=== PATIENT | female | born 1965 | race Caucasian/White ===

== ENCOUNTER → 2017-12-16 14:56 | Outpatient (CLI) | payer BC, SELFPAY ==
[2017-12-16 17:12] LABS: Absolute Lymphocyte Count 2.33 X10^3/ul (0.83-4.51); Absolute Neutrophil Count 4.8 X10^3/uL (2.0-7.7); Basophil# 0.08 X10^3/uL; Eosinophil# 0.21 X10^3/uL; Eosinophils% 2.6 % (0-5); Hematocrit 38.9 % (37-47); Hemoglobin 12.8 g/dl (12.0-15.0); Lymphocyte # 2.33 X10^3/ul (4.0); Lymphocyte % 28.9 % (19-41); Mean Corp Hgb Conc 32.9 g/gl (32-36); Mean Corpuscular Hgb 31.3 pg (27.0-32.0); Mean Corpuscular Volume 95.1 fL (81-99); Monocyte% 7.4 % (0-10); Neutrophil # 4.82 X10^3/uL (2.7-7.7); Neutrophil % 59.9 % (47-70); Platelet Count 227 K/mm3 (150-450); RBC Distribution Width CV 13.5 % (11.6-14.6); RBC Distribution Width SD 45.4 fl (35.1-43.9); Red Blood Count 4.09 M/mm3 (4.2-5.4); White Blood Count 8.1 K/mm3 (4.4-11.0)
[2017-12-16 17:16] LABS: POSITIVE COUNT NO; POSITIVE DIFFERENTIAL NO; POSITIVE MORPHOLOGY NO
[2017-12-16 17:23] LABS: Vitamin D,25 Hydroxy 9.4 ng/mL (19.95-100.01)
[2017-12-16 17:24] LABS: ALB/GLOB Ratio 1.1 RATIO (0.9-2.4); AST(SGOT) 21 U/L (15-37); Alanine Aminotransfer ALT/SGPT 29 U/L (13-56); Albumin, Serum 4.2 g/dL (3.2-5.0); Alkaline Phosphatase 86 U/L (45-117); Anion Gap 9 (5-15); BUN 12 mg/dL (7-18); BUN/Creat Ratio 15.4 RATIO (10-20); Calcium,Total 8.7 mg/dL (8.5-10.1); Chloride 104 mmol/L (98-107); Creatinine, Serum 0.78 mg/dL (0.55-1.02); EST Glomerular Filtration Rate 82 mL/min (>60); Est Glom Filt Rate - Afr Amer 99 mL/min (>60); Globulin 3.9 g/dL (2.2-4.2); Glucose 84 mg/dL (74-106); Potassium 3.7 mmol/L (3.5-5.1); Protein, Total 8.1 g/dL (6.4-8.2); Sodium Level 142 mmol/L (136-145)
[2017-12-18 14:55] LABS: Hep C Antibodies 0.1 s/co ratio (0.0-0.9)
== END ==
PROVIDERS: Visit Provider Family Medicine Geriatric Medicine
DX: E55.9 Vitamin D deficiency, unspecified (principal); E03.9 Hypothyroidism, unspecified; Z13.89 Encounter for screening for other disorder
CPT/HCPCS: 36415; 80053; 82306; 84443; 85025; 86803

== ENCOUNTER 2018-01-20 15:40 | Emergency (ER) | payer BC, SELFPAY ==
[2018-01-20 15:43] VITALS: BP 148/82; PULSE 83; RESP 18; TEMP 36.4; O2SAT 98; BMI 37.9
--- NOTE | 2018-01-20 16:06 | CT_ITS ---
STUDY: CT BRAIN WITHOUT CONTRAST REASON FOR EXAM: Female, 52 years old. Headache with recent fall. RADIATION DOSAGE (If Supplied By Facility): CTDIvol = ( 60.81 ) mGy, DLP = ( 1067.68 ) mGycm TECHNIQUE: Transaxial CT imaging of the brain was performed without administration of intravenous contrast material. Multiplanar reformations are submitted for interpretation. Individualized dose optimization techniques were used for this CT. COMPARISON: None. FINDINGS: Normal soft tissue structures. Normal calvarium. Normal size ventricles and extra-axial spaces for the patient's age. There are areas of decreased attenuation within the white matter tracts of the supratentorial brain, consistent with microvascular disease changes. Normal basal ganglia and thalami. Normal brainstem. Normal cerebellum. There is no intracranial hemorrhage. There is minimal atherosclerotic calcification of intracranial arteries. Normal visualized paranasal sinuses. CT/Brain/Head without Contrast IMPRESSION: No CT evidence of acute intracranial hemorrhage. Electronically Signed: Rachael Newby MD at 16:48 EDT , Service support ,
--- NOTE | 2018-01-20 16:06 | RAD_ITS ---
STUDY: X-RAY - THORACIC SPINE REASON FOR EXAM: Female, 52 years old. Back pain after recent trauma. TECHNIQUE: 3 view(s) of the thoracic spine were obtained. COMPARISON: Radiographs of the lumbar spine dated January 20, 2018. FINDINGS: There is an increase in the normal thoracic kyphosis. There is no substantial scoliosis. There is demineralization of the thoracic spine with endplate spondylosis. Appears to be mild decreased height of several upper thoracic vertebral bodies. This may be the result of mild old compression fractures. There is multilevel disc space narrowing of the thoracic spine. Surgical clips are visible in the right upper quadrant. RAD/Thoracic Spine 3 Views IMPRESSION: 1. Osteopenia. 2. There appear to be mild compression fractures of several upper thoracic vertebral bodies. These are of uncertain acuity. Electronically Signed: Rachael Newby MD at 17:01 EDT , Service support ,
--- NOTE | 2018-01-20 16:06 | CT_ITS ---
STUDY: CT CERVICAL SPINE WITHOUT CONTRAST REASON FOR EXAM: Female, 52 years old. Neck pain after falling through and/or. RADIATION DOSAGE (If Supplied By Facility): CTDIvol = ( 30.35 ) mGy, DLP = ( 591.51 ) mGycm TECHNIQUE: High resolution transaxial imaging was performed without contrast material. Sagittal and coronal images were reconstructed. Individualized dose optimization techniques were used for this CT. COMPARISON: None FINDINGS: Normal craniovertebral junction. Normal anterior atlantoaxial articulation. Normal odontoid process. Normal cervical lordosis. Normal vertebral bodies and posterior osseous elements. C2-3: Normal endplates. Normal disc height and morphology. Normal central canal and intervertebral neuroforamina. C3-4: Normal endplates. Normal disc height and morphology. Normal central canal and intervertebral neuroforamina. C4-5: Normal endplates. Normal disc height and morphology. Normal central canal and intervertebral neuroforamina. C5-6: Normal endplates. Normal disc height and morphology. Normal central canal and intervertebral neuroforamina. C6-7: Normal endplates. Normal disc height and morphology. Normal central canal and intervertebral neuroforamina. C7-T1: Normal endplates. Normal disc height and morphology. Normal central canal and intervertebral neuroforamina. Normal visualized soft tissue structures. CT/Spine Cervical without Contras IMPRESSION: No CT evidence of acute compression or displaced fracture of the cervical spine. Electronically Signed: Rachael Newby MD at 16:53 EDT , Service support ,
--- NOTE | 2018-01-20 16:07 | ED.VISSUMM ---
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 She hit into the door and then fell to the ground. She complains of headache. She complains of neck and back pain. She complains of pain in her entire back but it is worse in the upper back. She also complains of some numbness in the right arm and states it feels like there is a weight on it. She denies injury to extremities. No chest pain shortness of breath abdominal pain. No history of back surgeries Physical Examination: Afebrile vitals are stable and unremarkable No evidence of head trauma such as lacerations contusions abrasions or hematomas Pupils are equally round reactive to light no focal or lateralizing neurological deficits with light touch patient reports normal sensation in the bilateral upper extremities she has normal strength normal pillowcase sewer strength Patient complains of tenderness along palpation of the entire spine and is unable to tell me where she is point tender but does state that her pain is worse in the upper back Heart regular rate and rhythm Lungs are clear with equal breath sounds and no chest wall tenderness Abdomen soft and nontender Active full range of motion ?4 extremities without pain Test Results: CT of the head shows no hemorrhage. CT of the cervical spine shows no acute compression or fracture. Thoracic x-rays show multiple compression fractures of several upper thoracic vertebra of uncertain age. Lumbar x-rays show multilevel degenerative changes no acute fracture. Emergency Department Course and Treatment: Given that the patient has multiple thoracic compression fractures with a recent fall and pain I do believe these are acute. Although CT of the cervical spine showed no obvious geographic abnormality the patient is complaining of weakness and decreased sensation in her right arm. Therefore she will require further workup including likely MRI. She was discussed with Dr. Vela trauma surgeon prison keeper at [facility] and will be transferred. Treatment Plan: [] Disposition: Transfer Impression: Closed head injury Cervical strain Right arm weakness Multilevel thoracic compression fractures This note was generated with Giveter dictation software. It may contain incorrect words, spelling, and punctuation that were not noted in review of the chart prior to signing ED Disposition - Plan for ED Patient: Chief Complaint: Fall Referrals: Edilberto Loza Chi, MD [Primary Care Provider] -
--- NOTE | 2018-01-20 16:11 | ED.DCSUM_ITS ---
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 She hit into the door and then fell to the ground. She complains of headache. She complains of neck and back pain. She complains of pain in her entire back but it is worse in the upper back. She also complains of some numbness in the right arm and states it feels like there is a weight on it. She denies injury to extremities. No chest pain shortness of breath abdominal pain. No history of back surgeries Physical Examination: Afebrile vitals are stable and unremarkable No evidence of head trauma such as lacerations contusions abrasions or hematomas Pupils are equally round reactive to light no focal or lateralizing neurological deficits with light touch patient reports normal sensation in the bilateral upper extremities she has normal strength normal software support representative strength Patient complains of tenderness along palpation of the entire spine and is unable to tell me where she is point tender but does state that her pain is worse in the upper back Heart regular rate and rhythm Lungs are clear with equal breath sounds and no chest wall tenderness Abdomen soft and nontender Active full range of motion ?4 extremities without pain Test Results: CT of the head shows no hemorrhage. CT of the cervical spine shows no acute compression or fracture. Thoracic x-rays show multiple compression fractures of several upper thoracic vertebra of uncertain age. Lumbar x-rays show multilevel degenerative changes no acute fracture. Emergency Department Course and Treatment: Given that the patient has multiple thoracic compression fractures with a recent fall and pain I do believe these are acute. Although CT of the cervical spine showed no obvious geographic abnormality the patient is complaining of weakness and decreased sensation in her right arm. Therefore she will require further workup including likely MRI. She was discussed with Dr. Vela trauma surgeon weapons system instrument mechanic at [facility] and will be transferred. Treatment Plan: [] Disposition: Transfer Impression: Closed head injury Cervical strain Right arm weakness Multilevel thoracic compression fractures This note was generated with 1Ring dictation software. It may contain incorrect words, spelling, and punctuation that were not noted in review of the chart prior to signing ED Disposition - Plan for ED Patient: Chief Complaint: Fall Referrals: Edilberto Loza Chi, MD [Primary Care Provider] -
--- NOTE | 2018-01-20 16:30 | RAD_ITS ---
STUDY: X-RAY - LUMBAR SPINE REASON FOR EXAM: Female, 52 years old. Low back pain. TECHNIQUE: 3 view(s) of the lumbar spine were obtained. COMPARISON: Prior comparison studies are not available for review at this time. FINDINGS: Normal lumbar lordosis. There is no substantial scoliosis. There is a normal alignment of the vertebrae. There is multilevel degenerative arthropathy of the facet joints. Lumbar vertebral bodies have normal height and alignment. There appears be mild narrowing of L5-S1 disc space. Transverse and spinous processes are intact. There is no demonstrated fracture. Surgical clips are visible within the right upper quadrant. RAD/Lumbar Spine 2 or 3 Views IMPRESSION: 1. Multilevel degenerative arthropathy of the lumbar spine. 2. No radiographic evidence of acute compression or displaced fractures. Electronically Signed: Rachael Newby MD at 16:55 EDT , Service support ,
[2018-01-20] MEDS: Ondansetron 4 MG/2 ML Vial IV (17:33)
[2018-01-20 17:56] VITALS: BP 139/87; PULSE 97; RESP 14; TEMP 36.6; O2SAT 98
[2018-01-20 18:24] LABS: Absolute Lymphocyte Count 1.79 X10^3/ul (0.83-4.51); Absolute Neutrophil Count 5.7 X10^3/uL (2.0-7.7); Basophil# 0.05 X10^3/uL; Basophil% 0.6 % (0-1); Eosinophils% 2.3 % (0-5); Hematocrit 40.5 % (37-47); Hemoglobin 13.1 g/dl (12.0-15.0); Lymphocyte # 1.79 X10^3/ul (4.0); Lymphocyte % 20.3 % (19-41); Mean Corp Hgb Conc 32.3 g/gl (32-36); Mean Corpuscular Hgb 30.6 pg (27.0-32.0); Mean Corpuscular Volume 94.6 fL (81-99); Mean Platelet Vol. 11.1 fl (6.2-12.0); Monocyte# 1.04 X10^3/uL; Monocyte% 11.8 % (0-10); Neutrophil # 5.68 X10^3/uL (2.7-7.7); Neutrophil % 64.4 % (47-70); Platelet Count 229 K/mm3 (150-450); RBC Distribution Width CV 13.4 % (11.6-14.6); RBC Distribution Width SD 46.2 fl (35.1-43.9); Red Blood Count 4.28 M/mm3 (4.2-5.4); White Blood Count 8.8 K/mm3 (4.4-11.0)
[2018-01-20 18:25] LABS: POSITIVE COUNT NO; POSITIVE DIFFERENTIAL NO; POSITIVE MORPHOLOGY NO
[2018-01-20 18:37] LABS: International Normalized Ratio 0.9; Prothrombin Time (Protime)PT. 12.4 SECONDS (11.7-14.9)
[2018-01-20 18:46] LABS: ALB/GLOB Ratio 1.1 RATIO (0.9-2.4); AST(SGOT) 21 U/L (15-37); Alanine Aminotransfer ALT/SGPT 21 U/L (13-56); Alkaline Phosphatase 89 U/L (45-117); Anion Gap 7 (5-15); BUN 13 mg/dL (7-18); BUN/Creat Ratio 18.9 RATIO (10-20); Chloride 106 mmol/L (98-107); Creatinine, Serum 0.69 mg/dL (0.55-1.02); EST Glomerular Filtration Rate 95 mL/min (>60); Est Glom Filt Rate - Afr Amer 114 mL/min (>60); Estimated Creatinine Clearance 83.87 ml/min; Globulin 3.8 g/dL (2.2-4.2); Glucose 93 mg/dL (74-106); Potassium 3.4 mmol/L (3.5-5.1); Protein, Total 7.8 g/dL (6.4-8.2); Sodium Level 140 mmol/L (136-145)
== END 2018-01-20 18:49 | disposition short-term general hospital (02) ==
LOC: ED 16:59
PROVIDERS: Emergency Provider Emergency Medicine; Family Provider Family Medicine Geriatric Medicine; PCP Family Medicine Geriatric Medicine
DX: S09.90XA Unspecified injury of head, initial encounter (principal); S16.1XXA Strain of muscle, fascia and tendon at neck level, initial encounter; R53.1 Weakness; S22.009A Unspecified fracture of unspecified thoracic vertebra, initial encounter for closed fracture; W22.09XA Striking against other stationary object, initial encounter; Y93.K1 Activity, walking an animal; Y92.538 Other ambulatory health services establishments as the place of occurrence of the external cause; Y99.9 Unspecified external cause status; Z72.0 Tobacco use
CPT/HCPCS: 70450; 72072; 72100; 72125; 80053; 85025; 85610; 96374; 96375; 99285; A4216; J2405

== ENCOUNTER → 2019-03-10 10:24 | Outpatient (CLI) | payer BC, SELFPAY ==
[2019-03-10 12:33] LABS: Absolute Lymphocyte Count 2.11 X10^3/ul (0.83-4.51); Absolute Neutrophil Count 4.5 X10^3/uL (2.0-7.7); Basophil# 0.05 X10^3/uL; Basophil% 0.7 % (0-1); Eosinophil# 0.16 X10^3/uL; Eosinophils% 2.2 % (0-5); Hematocrit 39.5 % (37-47); Hemoglobin 12.7 g/dl (12.0-15.0); Lymphocyte # 2.11 X10^3/ul (4.0); Lymphocyte % 28.4 % (19-41); Mean Corp Hgb Conc 32.2 g/gl (32-36); Mean Corpuscular Hgb 30.1 pg (27.0-32.0); Mean Corpuscular Volume 93.6 fL (81-99); Mean Platelet Vol. 11.6 fl (6.2-12.0); Monocyte# 0.56 X10^3/uL; Monocyte% 7.5 % (0-10); Neutrophil # 4.53 X10^3/uL (2.7-7.7); Neutrophil % 60.9 % (47-70); Platelet Count 235 K/mm3 (150-450); RBC Distribution Width CV 13.3 % (11.6-14.6); RBC Distribution Width SD 44.1 fl (35.1-43.9); Red Blood Count 4.22 M/mm3 (4.2-5.4); White Blood Count 7.4 K/mm3 (4.4-11.0)
[2019-03-10 12:37] LABS: POSITIVE COUNT NO; POSITIVE DIFFERENTIAL NO; POSITIVE MORPHOLOGY NO
[2019-03-10 13:18] LABS: BUN 16 mg/dL (7-18); BUN/Creat Ratio 20.3 RATIO (10-20); Creatinine, Serum 0.79 mg/dL (0.55-1.02); EST Glomerular Filtration Rate 80 mL/min (>60); Est Glom Filt Rate - Afr Amer 97 mL/min (>60); Glucose 82 mg/dL (74-106)
[2019-03-10 13:19] LABS: ALB/GLOB Ratio 1.1 RATIO (0.9-2.4); AST(SGOT) 24 U/L (15-37); Alanine Aminotransfer ALT/SGPT 31 U/L (13-56); Alkaline Phosphatase 87 U/L (45-117); Anion Gap 7 (5-15); Calcium,Total 8.4 mg/dL (8.5-10.1); Chloride 105 mmol/L (98-107); Globulin 3.8 g/dL (2.2-4.2); Protein, Total 7.8 g/dL (6.4-8.2); Sodium Level 141 mmol/L (136-145)
[2019-03-11 09:03] LABS: HEPATITIS B SURFACE AG Negative (Negative)
== END ==
PROVIDERS: Family Provider Family Medicine Geriatric Medicine; PCP Family Medicine Geriatric Medicine; Visit Provider Family Medicine Geriatric Medicine
DX: R53.83 Other fatigue (principal); K72.00 Acute and subacute hepatic failure without coma
CPT/HCPCS: 36415; 80053; 84443; 85025; 87340

== ENCOUNTER → 2019-09-08 11:56 | Outpatient (CLI) | payer BC, SELFPAY ==
[2019-09-08 12:38] LABS: Absolute Lymphocyte Count 2.18 X10^3/uL (0.83-4.51); Absolute Neutrophil Count 5.5 X10^3/uL (2.0-7.7); Basophil# 0.06 X10^3/uL; Basophil% 0.7 % (0-1); Eosinophil# 0.31 X10^3/uL; Eosinophils% 3.5 % (0-5); Hematocrit 37.5 % (37-47); Lymphocyte # 2.18 X10^3/ul (4.0); Lymphocyte % 24.6 % (19-41); Mean Corpuscular Hgb 30.2 pg (27.0-32.0); Mean Corpuscular Volume 94.2 fL (81-99); Mean Platelet Vol. 11.1 fl (6.2-12.0); Monocyte# 0.78 X10^3/uL; Monocyte% 8.8 % (0-10); NRBC Flagged by Analyzer 0 % (0-5); Neutrophil # 5.48 X10^3/uL (2.7-7.7); Neutrophil % 61.8 % (47-70); Platelet Count 278 K/mm3 (150-450); RBC Distribution Width CV 13.2 % (11.6-14.6); RBC Distribution Width SD 45.5 fl (35.1-43.9); Red Blood Count 3.98 M/mm3 (4.2-5.4); White Blood Count 8.9 K/mm3 (4.4-11.0)
[2019-09-08 13:11] LABS: AST(SGOT) 20 U/L (15-37); Alanine Aminotransfer ALT/SGPT 27 U/L (13-56); Alkaline Phosphatase 99 U/L (45-117); Anion Gap 3 (5-15); BUN 22 mg/dL (7-18); BUN/Creat Ratio 28.4 RATIO (10-20); Calcium,Total 8.9 mg/dL (8.5-10.1); Chloride 103 mmol/L (98-107); Creatinine, Serum 0.78 mg/dL (0.55-1.02); EST Glomerular Filtration Rate 82 mL/min (>60); Est Glom Filt Rate - Afr Amer 99 mL/min (>60); Globulin 3.9 g/dL (2.2-4.2); Glucose 76 mg/dL (74-106); Potassium 4.7 mmol/L (3.5-5.1); Protein, Total 7.9 g/dL (6.4-8.2); Sodium Level 137 mmol/L (136-145); Thyroid Stim Hormone (TSH) 8.09 uIU/mL (0.358-3.74)
== END ==
PROVIDERS: Family Provider Family Medicine Geriatric Medicine; PCP Family Medicine Geriatric Medicine; Visit Provider Family Medicine Geriatric Medicine
DX: K72.00 Acute and subacute hepatic failure without coma (principal); I10 Essential (primary) hypertension
CPT/HCPCS: 36415; 80053; 84443; 85025

== ENCOUNTER → 2019-09-10 16:02 | Outpatient (CLI) | payer BC, SELFPAY ==
--- NOTE | 2019-09-10 16:11 | RAD_ITS ---
STUDY: X-RAY - LUMBAR SPINE REASON FOR EXAM: Female, 53 years old. Pain TECHNIQUE: 3 view(s) of the lumbar spine were obtained. COMPARISON: January 20 2018 FINDINGS: Normal lumbar lordosis. There is no substantial scoliosis. There is a normal alignment of the vertebrae. No evidence for acute fracture or subluxation.. There is mild narrowing of the L4-5 and L5-S1 disc spaces in association with facet arthropathy. Postop change status post cholecystectomy No significant change since prior exam RAD/Lumbar Spine 2 or 3 Views IMPRESSION: Mild degenerative changes. No evidence for acute fracture or other significant bony pathology Electronically Signed: Camden Velasquez MD at 22:13 EDT , Service support ,
== END ==
PROVIDERS: Family Provider Family Medicine Geriatric Medicine; PCP Family Medicine Geriatric Medicine; Referring Provider Family Medicine Geriatric Medicine; Visit Provider Family Medicine Geriatric Medicine
DX: M54.30 Sciatica, unspecified side (principal)
CPT/HCPCS: 72100

== ENCOUNTER → 2019-10-23 11:34 | Outpatient (CLI) | payer BC, SELFPAY ==
[2019-10-13 10:34] VITALS: BMI 41.3
[2019-10-23 13:27] LABS: Thyroid Stim Hormone (TSH) 0.56 uIU/mL (0.358-3.74)
== END ==
PROVIDERS: Family Provider Family Medicine Geriatric Medicine; PCP Family Medicine Geriatric Medicine; Visit Provider Family Medicine Geriatric Medicine
DX: E03.9 Hypothyroidism, unspecified (principal)
CPT/HCPCS: 36415; 84443

== ENCOUNTER 2019-11-20 10:30 | Outpatient (RCR) | payer BC, SELFPAY ==
--- NOTE | 2019-09-18 12:26 | HP.PTEVAL_ITS ---
Patient's Visit Information JAIME JENKINS is a 53 year old F referred to Physical Therapy by Edilberto Loza MD with a diagnosis of LBP. Date of Evaluation: 09/18/19 Physical Therapist: Michelle Cowan, PT, Cert MDT - Visit Plan Frequency: 2-3x /Week Duration: 4-6 Weeks Plan: AQUATIC THERAPY FOR PAIN RELEIF, POSTURE CORRECTION/STRENGTHENING, INSTRUCTION IN APPROPRIATE BODY MECHANICS AND ACTIVITY MODIFICATIONS. DLS STARTING WITH A NEUTRAL SPINE PROGRESSING ROM TOLERATED. ELIZABETH LE ROM, STRETCHING AND STRENGTHENING. HEP INSTRUCTION. 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 CURRENTLY NOT OFF WORK. Disability: NO. Present symptoms: LEFT LOW BACK, BUTTOCK, HIP, THIGH, AND LEG PAIN, NUMBNESS AND TINGLING. LEFT UE HAS GONE NUMB A COUPLE OF TIMES TOO. Present since: ABOUT 2 WEEKS AGO. Pain Scale: WORST 8/10, LEAST 5/10. Currently: 5/10. Commenced as a result of: NO APPARENT REASON. PATIENT REPORTS SHE WAS AT WORK WHEN SHE FIRST FELT THE PAIN. Symptoms at onset: LLE. Worse: PULLING ON SOMETHING, TWISTING, SQUATTING DOWN, WALKING, STANDING TO DO THE DISHES, ANYTHING I DO MAKES IT HURT. Better: SITTING - PAIN WILL EASE DOWN BUT IT NEVER GOES AWAY. Disturbed sleep: YES. Previous history/Previous treatment: FIRST STARTED HAVING LOW BACK AND LE SX'S ABOUT 10 YEARS AGO. IN THE PAST HER LE SX'S HAVE COME AND GONE BUT IT IS STAYING IN THE LEFT LEG THIS TIME. NO CHIRO, NO PT, NO INJECTIONS AND NO BACK SURGERY. SELF TREATMENT AND TIME HAS TAKEN CARE OF ANY BACK OR LEG PAIN SHE HAS HAD IN THE PAST AND SHE REPORTS IT HAS NEVER REALLY BEEN BAD ENOUGH BEFORE NOW TO DO ANYTHING ABOUT IT. THIS EPISODE PATIENT REPORTS DR. LOZA GAVE HER 4 SHOTS AND 4 MEDICINES AND THEY DID NOT HELP. FINISHED THEM YESTERDAY. Coughing/sneezing/straining: POSITIVE. Gait: PATIENT REPORTS SHE IS LIMPING A LOT NOW ON THE LLE AND SHE NOTICES DRAGGING HE LLE AT TIMES. Difficulty initiating urinatin: NO. Accidents: 2 YEARS AGO PATIENT REPORTS HER DOG PULLED HER THROUGH A GLASS DOOR AND SHE SUSTAINED A FX IN HER UPPER BACK. SHE REPORTS THEY TALKED ABOUT PUTTING CEMENT IN BUT IT STARTED HEALING ON ITS OWN. Unexplained weight loss: NO. Imaging: LOW BACK X-RAY - There is mild narrowing of the L4-5 and L5-S1 disc spaces in association with facet arthropathy. NO CHANGES COMPARED TO JANUARY 2018 X RAY. PMH: UNREMARKABLE. Recent major surgery: GALLBLADDER REMOVAL 2006, PARTIAL HYSTERECTOMY 2004. OTHER: PATIENT REPORTS DR. LOZA ALSO REFERRED HER TO PAIN MGMT AND SHE HAS AN MARY'T WITH THEM SATURDAY AND AN APPT WITH A CHIROPRACTOR OCT 13 2019. - Objective Sitting/Standing Posture: POOR. Lordosis: NORMAL. Lateral shift: RIGHT. Relevant shift: NO. Active Correction of posture: WORSE. Other Observations: UE DEPENDENT TO TRANSFER FROM SIT TO STAND. DIFFICULTY RISING FROM SITTING AND INITIATING GAIT AFTER SITTING. GAIT IS SLOW AND ANTALGIC WITH INCREASED TRUNK FLEXION AND LIMP ON LEFT LE. NO AD'S. NO LOB. TRIES TO AVOID WEIGHT BEARING ON LLE. Motor deficit: ELIZABETH LE MMT'ING IS PAIN LIMITED. RIGHT LE STRENGTH APPEARS 5/5 WITH MMT'ING EXCEPT FOR HIP 4/5. LLE: HIP 3+ TO 4-/5, KNEE EXT 4/5, KNEE EXT 4/5, ANKLE 5/5. Sensory deficit: DECREASED LEFT THIGH LIGHT TOUCH. ROM deficit: TIGHT ELIZABETH HIP FLEXORS. MILD ELIZABETH HS TIGHTNESS. Reflexes: UNABLE TO ELICIT ELIZABETH LE DTR'S. Dural Signs: NEGATIVE RIGHT AND POSITIVE LLE. Lumbar mvmt loss: flex - MOD. ext - JEANE. R SG - MOD. L SG - JEANE. Core strength: POOR. Palpation: PATIENT IS REALLY NOT TENDER WITH PALPATION OF THE LOWER THORACIC OR LUMBAR SPINOUS PROCESS'S OR EVEN OVER THE SACRUM BUT SHE HAS A LOT OF PARASPINAL GUARDING AND HER LEFT BUTTOCK REGION IS VERY TENDER WITH LIGHT PALPATION IN THE REGION OF THE SCIATIC NERVE. - Goals Goal 1:: DECREASE C/O LOW BACK AND LLE SX'S. Goal Time Frame: 4-6 Weeks Goal 2:: IMPROVE LIFTING, WALKING, SITTING, STANDING, SLEEP, SOCIAL LIFE AND WORK/HOMEMAKING FUNCTION Goal Time Frame: 4-6 Weeks Goal 3:: INSTRUCT IN PROPHYLAXIS Goal Time Frame: 4-6 Weeks - Rehabilitation Potential Rehabilitation Potential: Fair - Anticipated Interventions Patient/Client Instruction: Educate patient on: Condition, Plan of Care, Risk Factors, Benefits of Fitness Program For the Purpose of:: To improve self management Therapeutic Exercise to Include: Strength training, Body mechanics, Postural training, Flexibilty training, Gait and locomotor training, Dynamic Lumbar Stabilization For the Purpose of:: To decrease pain, To decrease swelling/inflammation, To increase ROM, To improve muscle performance and motor function, To increase tolerance to activity/condition/position, To improve ability of physical actions for home/community/work/leisure, To improve gait and locomotor functions Thank you for the opportunity to evaluate your patient. For Medicare and Medicare HMO plans, please review the plan of care and approve it. It will need to be FAXED BACK to us at [phone] for Medicare purposes. For Medicare only, by signing this I certify the plan of care. Please let me know if there are questions or concerns regarding this plan of care. Physician Signature: Date:
--- NOTE | 2019-10-21 18:00 | HP.PTREVAL ---
Edilberto Loza MD, It has been my pleasure to treat JAIME JENKINS over the last 10 visits for LBP. Please see the progress note below for an update on the physical therapy plan of care! Subjective: PATIENT REPORTS SHE IS BETTER. THE WALKING DON'T BOTHER ME. A LITTLE BIT OF PAIN IF ON HER FEET TOO MUCH BUT NOT LIKE IT WAS. PATIENT REPORTS SHE IS COMPLETLY OFF WORK CURRENTLY BECAUSE DR. LOZA GAVE HER RESTRICTIONS. PATIENT REPORTS SHE REALLY HAS BEEN WORKING FULL DUTY UP UNTIL THEY TOOK HER OFF WORK AND SHE REPORTS SHE REALLY HASN'T HAD ANY PROBLEMS FOR A WEEK OR TWO. SHE IS GOING TO SCHEDULE A FOLLOW UP WITH DR. LOZA THIS MONTH. PATIENT IS CONSIDERING A MEMBERSHIP POST REHAB. Objective/Function: PATIENT IS MAKING GREAT PROGRESS WITH PHYSICAL THERAPY. SHE IS A GOOD CANDIDATE TO CONTINUE AQUATIC THERAPY AND START TRANSITIONING TO LAND BASED EX OVER THE NEXT FEW WEEKS. SHE REPORTS BEING ABLE TO COME 3 TIMES A WEEK NOW. UPON TESTING TODAY: ELIZABETH LE STRENGTH IS 5/5 WITH MMT'ING. PATIENT STILL HAS POOR CORE STENGTH AND DECREASED HIP EXTENSION STRENGTH. INDEP SIT TO STAND WITHOUT UE ASSIST AND GOOD INITIATION OF GAIT AFTER SITTING. NORMALIZED GAIT PATTERN WITH GOOD CADANCE TODAY. Dural Signs: NEGATIVE RIGHT AND POSITIVE LLE. Lumbar mvmt loss: flex - Min. ext - Mod. R SG - Mod. L SG - Mod. PATIENT DENIES NCREASED PAIN WITH LUMBAR ROM TESTING ALL PLANES TODAY. Core strength: POOR. Palpation: PATIENT IS REALLY NOT TENDER WITH PALPATION OF THE LOWER THORACIC OR LUMBAR SPINOUS PROCESS'S OR EVEN OVER THE SACRUM BUT SHE HAS A LOT OF PARASPINAL GUARDING AND HER LEFT BUTTOCK REGION IS VERY TENDER WITH LIGHT PALPATION IN THE REGION OF THE SCIATIC NERVE. Plan Plan: CONT PT 3 TIMES A WEEK WITH AQUATIC AND LAND PT FOR CORE AND LE STRENGTHENING. PATIENT IS AGREEABLE AND CONSIDERING MEMBERSHIP POST REHAB. Goals Goal 1:: DECREASE C/O LOW BACK AND LLE SX'S. Goal Time Frame: 4-6 Weeks Goal 2:: IMPROVE LIFTING, WALKING, SITTING, STANDING, SLEEP, SOCIAL LIFE AND WORK/HOMEMAKING FUNCTION Goal Time Frame: 4-6 Weeks Goal 3:: INSTRUCT IN PROPHYLAXIS Goal Time Frame: 4-6 Weeks Anticipated Interventions Patient/Client Instruction: Educate patient on: Condition, Plan of Care, Risk Factors, Benefits of Fitness Program For the Purpose of:: To improve self management Therapeutic Exercise to Include: Strength training, Body mechanics, Postural training, Flexibilty training, Gait and locomotor training, Dynamic Lumbar Stabilization For the Purpose of:: To decrease pain, To decrease swelling/inflammation, To increase ROM, To improve muscle performance and motor function, To increase tolerance to activity/condition/position, To improve ability of physical actions for home/community/work/leisure, To improve gait and locomotor functions Please do not hesitate to contact me at [phone] by phone or if you have questions or concerns regarding this new plan of care! Sincerely, Michelle Cowan, PT, Cert MDT
--- NOTE | 2019-11-20 10:59 | HP.PTDCSUM_ITS ---
- PT D/C Summary It has been my pleasure to treat JAIME JENKINS under orders from Edilberto Loza MD, for the diagnosis of LBP for a total of 20 visit(s). Discharge Date: 11/20/19 Please see the following information for a summary of their discharge status. - Subjective Subjective: PATIENT REPORTS SHE IS BETTER AND DOESN'T NEED THERAPY ANYMORE. RELEASED LAST WEEK TO GO BACK TO WORK. STILL THINKING ABOUT GETTING A MEMBERSHIP HERE AT BUT IN THE MEAN TIME SHE IS GOING TO CONTINUE HER HEP. - Pain L hip Pain Intensity (Out of 10): 1 Lumbar Spine Pain Intensity (Out of 10): 1 R Hip Pain Intensity (Out of 10): 0 - Overall Improvement % Improvement: 98 - Objective Objective/Function: PATIENT WAS SEEN TODAY FOR A RE-EVAL OF PROGRESS MADE TOWARD THE SET PT GOALS AND READINESS FOR DISCHARGE VS THE NEED FOR FURTHER PT. WE ALSO REVIEWED HER HEP AND PROPER POSTURE CONTROL AND BODY MECHANICS. PATIENT A BLE TO COMMUNICATE AND DEMONSTRATE A GOOD UNDERSTANDING OF ALL INSTRUCTIONS AFTER GIVEN. ALL GOALS MET. PATIENT IS APPROPRIATE FOR D/C TO HEP. UPON TESTING TODAY: ELIZABETH LE STRENGTH IS 5/5 WITH MMT'ING. INDEP SIT TO STAND WITHOUT UE ASSIST AND GOOD INITIATION OF GAIT AFTER SITTING. NORMALIZED GAIT PATTERN WITH GOOD CADANCE TODAY. Dural Signs: NEGATIVE ELIZABETH LE'S. Lumbar mvmt loss: flex - NIL. ext - MIN. R SG - MIN. L SG - MIN. PATIENT DENIES PAIN WITH LUMBAR ROM TESTING ALL PLANES TODAY. Core strength: POOR BUT IMPROVING. Palpation: TENDERNESS HAS RESOLVED. - Goals Goal 1:: DECREASE C/O LOW BACK AND LLE SX'S. Goal Progress: Goal Met Goal 2:: IMPROVE LIFTING, WALKING, SITTING, STANDING, SLEEP, SOCIAL LIFE AND WORK/HOMEMAKING FUNCTION Goal Progress: Goal Met Goal 3:: INSTRUCT IN PROPHYLAXIS Goal Progress: Goal Met - Plan Plan: D/C - PATIENT AGREEABLE. - D/C Information If there are questions or concerns regarding this patient's physical therapy, please feel free to call me at [phone]. Thank you for the referral of this patient. Sincerely, Michelle Cowan, PT, Cert MDT
== END 2019-11-20 19:00 | disposition home or self-care (01) ==
LOC: PT 10:30
PROVIDERS: Family Provider Family Medicine Geriatric Medicine; PCP Family Medicine Geriatric Medicine; Referring Provider Family Medicine Geriatric Medicine; Visit Provider Family Medicine Geriatric Medicine
DX: M54.5 Low back pain (principal)
CPT/HCPCS: 97110; 97113; 97162; 97164; 97530

== ENCOUNTER → 2020-03-14 11:44 | Outpatient (CLI) | payer BC, SELFPAY ==
[2019-10-13 10:34] VITALS: BMI 41.3
[2020-03-14 12:18] LABS: Absolute Lymphocyte Count 2.19 X10^3/uL (0.83-4.51); Absolute Neutrophil Count 6.2 X10^3/uL (2.0-7.7); Basophil# 0.09 X10^3/uL; Basophil% 0.9 % (0-1); Eosinophils% 3.1 % (0-5); Hematocrit 40.4 % (37-47); Lymphocyte # 2.19 X10^3/ul (4.0); Lymphocyte % 22.9 % (19-41); Mean Corp Hgb Conc 32.2 g/dL (32-36); Mean Corpuscular Hgb 29.6 pg (27.0-32.0); Mean Platelet Vol. 11.8 fl (6.2-12.0); Monocyte# 0.75 X10^3/uL; Monocyte% 7.8 % (0-10); NRBC Flagged by Analyzer 0 % (0-5); Neutrophil # 6.18 X10^3/uL (2.7-7.7); Neutrophil % 64.7 % (47-70); Platelet Count 250 K/mm3 (150-450); RBC Distribution Width CV 13.7 % (11.6-14.6); RBC Distribution Width SD 46.8 fl (35.1-43.9); Red Blood Count 4.39 M/mm3 (4.2-5.4); White Blood Count 9.6 K/mm3 (4.4-11.0)
[2020-03-14 12:57] LABS: ALB/GLOB Ratio 1.1 RATIO (0.9-2.4); AST(SGOT) 38 U/L (15-37); Alanine Aminotransfer ALT/SGPT 32 U/L (13-56); Alkaline Phosphatase 97 U/L (45-117); Anion Gap 6 (5-15); BUN 16 mg/dL (7-18); BUN/Creat Ratio 21.2 RATIO (10-20); Calcium,Total 9.2 mg/dL (8.5-10.1); Chloride 103 mmol/L (98-107); Creatinine, Serum 0.76 mg/dL (0.55-1.02); EST Glomerular Filtration Rate 84 mL/min (>60); Est Glom Filt Rate - Afr Amer 102 mL/min (>60); Globulin 3.7 g/dL (2.2-4.2); Glucose 88 mg/dL (74-106); Potassium 4.3 mmol/L (3.5-5.1); Protein, Total 7.7 g/dL (6.4-8.2); Sodium Level 135 mmol/L (136-145); Thyroid Stim Hormone (TSH) 0.06 uIU/mL (0.358-3.74)
== END ==
PROVIDERS: PCP Family Medicine Geriatric Medicine; Referring Provider Family Medicine Geriatric Medicine; Visit Provider Family Medicine Geriatric Medicine
DX: R53.83 Other fatigue (principal)
CPT/HCPCS: 36415; 80053; 84443; 85025

== ENCOUNTER → 2020-09-13 10:20 | Outpatient (CLI) | payer BC, SELFPAY ==
[2019-10-13 10:34] VITALS: BMI 41.3
[2020-09-13 12:44] LABS: Absolute Lymphocyte Count 2.65 X10^3/uL (0.83-4.51); Absolute Neutrophil Count 5.4 X10^3/uL (2.0-7.7); Basophil# 0.09 X10^3/uL; Eosinophil# 0.31 X10^3/uL; Eosinophils% 3.3 % (0-5); Hematocrit 40.1 % (37-47); Hemoglobin 12.7 g/dL (12.0-15.0); Lymphocyte # 2.65 X10^3/ul (4.0); Lymphocyte % 28.4 % (19-41); Mean Corp Hgb Conc 31.7 g/dL (32-36); Mean Corpuscular Hgb 29.6 pg (27.0-32.0); Mean Corpuscular Volume 93.5 fL (81-99); Mean Platelet Vol. 11.7 fl (6.2-12.0); Monocyte# 0.84 X10^3/uL; NRBC Flagged by Analyzer 0 % (0-5); Neutrophil # 5.39 X10^3/uL (2.7-7.7); Neutrophil % 57.9 % (47-70); Platelet Count 275 K/mm3 (150-450); RBC Distribution Width CV 12.9 % (11.6-14.6); RBC Distribution Width SD 44.2 fl (35.1-43.9); Red Blood Count 4.29 M/mm3 (4.2-5.4); White Blood Count 9.3 K/mm3 (4.4-11.0)
[2020-09-13 13:15] LABS: AST(SGOT) 30 U/L (15-37); Alanine Aminotransfer ALT/SGPT 49 U/L (13-56); Alkaline Phosphatase 117 U/L (45-117); Anion Gap 5 (5-15); BUN 18 mg/dL (7-18); BUN/Creat Ratio 21.9 RATIO (10-20); Chloride 104 mmol/L (98-107); Creatinine, Serum 0.82 mg/dL (0.55-1.02); EST Glomerular Filtration Rate 76 mL/min (>60); Est Glom Filt Rate - Afr Amer 92 mL/min (>60); Globulin 4.1 g/dL (2.2-4.2); Glucose 85 mg/dL (74-106); Potassium 4.4 mmol/L (3.5-5.1); Protein, Total 8.1 g/dL (6.4-8.2); Sodium Level 138 mmol/L (136-145); Thyroid Stim Hormone (TSH) 0.36 uIU/mL (0.358-3.74)
== END ==
PROVIDERS: PCP Family Medicine Geriatric Medicine; Visit Provider Family Medicine Geriatric Medicine
DX: I10 Essential (primary) hypertension (principal)
CPT/HCPCS: 36415; 80053; 84443; 85025

== ENCOUNTER → 2020-11-25 09:12 | Outpatient (CLI) | payer BC, SELFPAY ==
[2019-10-13 10:34] VITALS: BMI 41.3
--- NOTE | 2020-11-25 09:20 | RAD_ITS ---
STUDY: X-RAY CHEST REASON FOR EXAM: Female, 55 years old. NO CHEST COMPLAINTS, TB SCREENING FOR EMPLOYMENT TECHNIQUE: PA and lateral views of the chest. COMPARISON: 02/28/2016 FINDINGS: The lungs are clear and expanded. There is no demonstrated pleural abnormality. Normal size heart. Normal mediastinum and meg. Normal visualized pulmonary arteries. Normal visualized aortic arch and descending thoracic aorta. Normal visualized thoracic spine. Normal visualized ribs, clavicles, and shoulders. There is no demonstrated abnormality of the visualized soft tissue structures of the upper abdomen. RAD/Chest PA and Lateral IMPRESSION: Normal x-ray examination of the chest. Electronically Signed: Efra Solitario MD at 16:55 EST Tel , Service support ,
== END ==
LOC: RAD 09:18
PROVIDERS: PCP Family Medicine Geriatric Medicine; Referring Provider Family Medicine Geriatric Medicine; Visit Provider Family Medicine Geriatric Medicine
DX: A15.9 Respiratory tuberculosis unspecified (principal)
CPT/HCPCS: 71046

== ENCOUNTER → 2021-03-15 10:39 | Outpatient (CLI) | payer BC, SELFPAY ==
[2019-10-13 10:34] VITALS: BMI 41.3
[2021-03-15 11:56] LABS: Absolute Lymphocyte Count 2.05 X10^3/uL (0.83-4.51); Absolute Neutrophil Count 5.2 X10^3/uL (2.0-7.7); Basophil% 1.2 % (0-1); Eosinophil# 0.31 X10^3/uL; Eosinophils% 3.6 % (0-5); Hematocrit 41.2 % (37-47); Hemoglobin 13.2 g/dL (12.0-15.0); Lymphocyte # 2.05 X10^3/ul (0.83-4.51); Lymphocyte % 24.1 % (19-41); Mean Corpuscular Hgb 29.9 pg (27.0-32.0); Mean Corpuscular Volume 93.2 fL (81-99); Mean Platelet Vol. 11.5 fl (6.2-12.0); Monocyte# 0.79 X10^3/uL; Monocyte% 9.3 % (0-10); NRBC Flagged by Analyzer 0 % (0-5); Neutrophil # 5.23 X10^3/uL (2.7-7.7); Neutrophil % 61.3 % (47-70); Platelet Count 282 K/mm3 (150-450); RBC Distribution Width SD 44.3 fl (35.1-43.9); Red Blood Count 4.42 M/mm3 (4.2-5.4); White Blood Count 8.5 K/mm3 (4.4-11.0)
[2021-03-15 12:27] LABS: ALB/GLOB Ratio 1.2 RATIO (0.9-2.4); AST(SGOT) 22 U/L (15-37); Alanine Aminotransfer ALT/SGPT 36 U/L (13-56); Albumin, Serum 4.2 g/dL (3.2-5.0); Alkaline Phosphatase 115 U/L (45-117); Anion Gap 6 (5-15); BUN 20 mg/dL (7-18); BUN/Creat Ratio 22.5 RATIO (10-20); Calcium,Total 9.2 mg/dL (8.5-10.1); Chloride 102 mmol/L (98-107); Creatinine, Serum 0.89 mg/dL (0.55-1.02); EST Glomerular Filtration Rate 70 mL/min (>60); Est Glom Filt Rate - Afr Amer 84 mL/min (>60); Globulin 3.5 g/dL (2.2-4.2); Glucose 84 mg/dL (74-106); Potassium 4.4 mmol/L (3.5-5.1); Protein, Total 7.7 g/dL (6.4-8.2); Sodium Level 137 mmol/L (136-145)
== END ==
LOC: POLAB3 10:41
PROVIDERS: PCP Family Medicine Geriatric Medicine; Visit Provider Family Medicine Geriatric Medicine
DX: I10 Essential (primary) hypertension (principal)
CPT/HCPCS: 36415; 80053; 84443; 85025

== ENCOUNTER → 2021-03-22 13:14 | Outpatient (CLI) | payer BC, SELFPAY ==
[2019-10-13 10:34] VITALS: BMI 41.3
--- NOTE | 2021-03-22 13:18 | CT_ITS ---
STUDY: LOW DOSE CT LUNG CANCER SCREENING REASON FOR EXAM: Female, 55 years old. CIGARETTE SMOKER. Patient smokes half a pack per day for 44years RADIATION DOSAGE (If Supplied By Facility): CTDIvol = ( 3.18 ) mGy, DLP = ( 102.05 ) mGycm TECHNIQUE: No contrast was administered. Low dose technique was utilized (average mAS-38 and kVp 120). 1.25 mm axial source images with a slice interval of 1.25-mm were reconstructed in lung windows. 2.5 mm axial source images with a slice interval of 2.5-mm were reconstructed in lung windows. 5.0 mm axial source images with a slice interval of 5.0-mm were reconstructed in soft tissue windows. Nodule measured using lung windows on PACS and/or independent workstation with automated measurement of minimum and maximum diameter. Nodule measurement reported as average diameter rounded to the nearest whole number. Growth is defined as an increase ins size of greater than 1.5 mm. COMPARISON: None. NODULES: No nodules are seen. Emphysema: No significant emphysematous changes present. Endobronchial lesion: None Aorta: Unremarkable. Coronary arteries: Unremarkable. Mediastinal nodes: Benign-appearing small mediastinal lymph nodes. Calcified right hilar lymph nodes. Other chest and abdominal findings: Small hiatal hernia. CT/Low Dose CT Lung Screening IMPRESSION: Lung-RADS category 2 - Continue annual screening with LDCT in 12 months. IMPORTANT NOTES FOR USE: ACR Lung-RADS Version 1.1 Assessment Categories Release Date: 2018 Category: Coded 0-4 bases on nodule(s) with highest degree of suspicion. Negative screen is defined as categories 1 and 2; a positive screen is defined as categories 3 and 4. Category 3 and 4A nodules that are unchanged on interval CT should be coded as category 2, and individuals returned to screening in 12 months. Category 4X: Category 3 or 4 nodules with additional imaging findings that increase the suspicion of lung cancer, such as spiculation, GGN that doubles in size in 1 year, enlarged lymph notes, etc. Category Modifiers: S (significant finding unrelated to lung cancer) Electronically Signed: Aden Santos MD at 13:49 EDT , Service support ,
== END ==
PROVIDERS: PCP Family Medicine Geriatric Medicine; Referring Provider Family Medicine Geriatric Medicine; Visit Provider Family Medicine Geriatric Medicine
DX: Z12.2 Encounter for screening for malignant neoplasm of respiratory organs (principal); F17.210 Nicotine dependence, cigarettes, uncomplicated
CPT/HCPCS: 71271

== ENCOUNTER → 2021-03-23 15:30 | Outpatient (CLI) | payer BC, SELFPAY ==
[2019-10-13 10:34] VITALS: BMI 41.3
--- NOTE | 2021-03-23 15:32 | BI_ITS ---
MAMMOGRAPHY - BILATERAL SCREENING REASON FOR EXAM: Female, 55 years old. Routine annual screening examination. PERTINENT HISTORY: Non-contributory. TECHNIQUE: Digital bilateral breast brigid (3D mammographic acquisition) in the CC and MLO projections. 2-D mediolateral oblique (MLO) and craniocaudad (CC) views of both breasts were obtained. CAD: Full Field Digital Mammography with Computer Added Detection was performed. COMPARISON: Comparison is made with prior outside examination of 09/03/2012. FINDINGS: Breast Composition: There are scattered areas of fibroglandular density. There are no dominant masses or suspicious calcifications. Stable 7.1 mm well-defined nodule in the retroareolar region of the right breast. Correlation with ultrasound is recommended. Stable benign-appearing lateral axillary lymph nodes. No other significant abnormalities are identified. There has been no significant change since the prior study. BI/SCRN MAMM (CAD)W/BRIGID BILAT IMPRESSION: Stable bilateral screening mammogram. Yearly follow-up mammogram recommended. (A) ASSESSMENT CATEGORY: BIRADS Category 2: Benign. A letter regarding these results will be sent to the patient by the facility within 30 days. Approximately 10% of breast cancers are not detected by mammography. A normal mammogram should not delay biopsy of a clinically suspicious abnormality. [id number] Electronically Signed: Aden Santos MD at 9:00 EDT , Service support ,
== END ==
PROVIDERS: PCP Family Medicine Geriatric Medicine; Referring Provider Family Medicine Geriatric Medicine; Visit Provider Family Medicine Geriatric Medicine
DX: Z12.31 Encounter for screening mammogram for malignant neoplasm of breast (principal)
CPT/HCPCS: 77063; 77067

== ENCOUNTER → 2021-05-10 11:49 | Outpatient (CLI) | payer BC, SELFPAY ==
[2019-10-13 10:34] VITALS: BMI 41.3
[2021-05-10 12:56] LABS: Thyroid Stim Hormone (TSH) 2.79 uIU/mL (0.358-3.74)
== END ==
LOC: POLAB3 11:50
PROVIDERS: PCP Family Medicine Geriatric Medicine; Visit Provider Family Medicine Geriatric Medicine
DX: E03.9 Hypothyroidism, unspecified (principal)
CPT/HCPCS: 36415; 84443

== ENCOUNTER → 2021-09-13 15:37 | Outpatient (CLI) | payer BC, SELFPAY ==
[2021-09-13 17:32] LABS: Absolute Lymphocyte Count 1.96 X10^3/uL (0.83-4.51); Absolute Neutrophil Count 4.9 X10^3/uL (2.0-7.7); Basophil# 0.06 X10^3/uL; Basophil% 0.8 % (0-1); Eosinophil# 0.14 X10^3/uL; Eosinophils% 1.8 % (0-5); Hematocrit 39.1 % (37-47); Hemoglobin 12.4 g/dL (12.0-15.0); Lymphocyte # 1.96 X10^3/ul (0.83-4.51); Lymphocyte % 24.7 % (19-41); Mean Corp Hgb Conc 31.7 g/dL (32-36); Mean Corpuscular Hgb 29.5 pg (27.0-32.0); Mean Corpuscular Volume 92.9 fL (81-99); Monocyte# 0.85 X10^3/uL; Monocyte% 10.7 % (0-10); NRBC Flagged by Analyzer 0 % (0-5); Neutrophil # 4.91 X10^3/uL (2.7-7.7); Neutrophil % 61.6 % (47-70); Platelet Count 280 K/mm3 (150-450); RBC Distribution Width CV 12.6 % (11.6-14.6); RBC Distribution Width SD 42.9 fl (35.1-43.9); Red Blood Count 4.21 M/mm3 (4.2-5.4)
[2021-09-13 18:05] LABS: AST(SGOT) 29 U/L (15-37); Alanine Aminotransfer ALT/SGPT 45 U/L (13-56); Albumin, Serum 4.2 g/dL (3.2-5.0); Alkaline Phosphatase 92 U/L (45-117); Anion Gap 6 (5-15); BUN 15 mg/dL (7-18); BUN/Creat Ratio 16.1 RATIO (10-20); Calcium,Total 9.3 mg/dL (8.5-10.1); Chloride 103 mmol/L (98-107); Creatinine, Serum 0.93 mg/dL (0.55-1.02); EST Glomerular Filtration Rate 66 mL/min (>60); Est Glom Filt Rate - Afr Amer 79 mL/min (>60); Globulin 4.2 g/dL (2.2-4.2); Glucose 92 mg/dL (74-106); Potassium 4.2 mmol/L (3.5-5.1); Protein, Total 8.4 g/dL (6.4-8.2); Sodium Level 138 mmol/L (136-145); Thyroid Stim Hormone (TSH) 2.32 uIU/mL (0.358-3.74)
== END ==
LOC: POLAB3 15:38
PROVIDERS: PCP Family Medicine Geriatric Medicine; Visit Provider Family Medicine Geriatric Medicine
DX: R53.83 Other fatigue (principal)
CPT/HCPCS: 36415; 80053; 84443; 85025

== ENCOUNTER → 2021-10-11 13:35 | Outpatient (CLI) | payer BC, SELFPAY ==
--- NOTE | 2021-10-11 15:40 | NEURO ---
NCS and/or EMG Patient Report Ordering Doctor: Edilberto Loza Chi DATE OF SERVICE: 10/11/21 Chavo presents today for electrodiagnostic testing of the left upper limb. She reports numbness and tingling in the arm. Electrodiagnostic findings: Left median motor nerve demonstrates normal distal latency, amplitude and conduction velocity. Normal left ulnar motor response. Normal left median ulnar F-wave. Sensory responses are within normal limits. On needle EMG, all muscles tested in the left upper limb as well as the left cervical paraspinals showed no evidence of denervation with normal motor unit action potentials. Electrodiagnostic assessment: This is a normal electrodiagnostic study in the left upper limb. There is no electrodiagnostic evidence for peripheral neuropathy, including carpal tunnel syndrome. There is no electrodiagnostic evidence for cervical radiculopathy
== END ==
LOC: PSN 13:37
PROVIDERS: PCP Family Medicine Geriatric Medicine; Referring Provider Family Medicine Geriatric Medicine; Visit Provider Family Medicine Geriatric Medicine
DX: R20.9 Unspecified disturbances of skin sensation (principal)
CPT/HCPCS: 95886; 95910

== ENCOUNTER → 2022-03-26 | Outpatient (CLI) | payer BC, SELFPAY ==
--- NOTE | 2022-03-26 11:40 | RAD_ITS ---
STUDY: X-RAY - LUMBAR SPINE REASON FOR EXAM: Female, 56 years old. LOW BACK PAIN Technologist Notes LOWER BACK PAIN AND LEFT LEG PAIN INTERMITTENTLY, NOW RIGHT ANTERIOR LEG NUMBNESS TECHNIQUE: XR Spine Lumbar 2 or 3 Views COMPARISON: None 09/10/2019 FINDINGS: Normal lumbar lordosis. There is no substantial scoliosis. There is a normal alignment of the vertebrae. There is multilevel endplate spondylosis of the lumbar vertebrae. There is multi-level degenerative disc disease with multi-level disc space narrowing. The soft tissue structures are unremarkable. RAD/Lumbar Spine 2 or 3 Views IMPRESSION: Degenerative changes of the spine, as detailed above. Findings are unchanged since 2018 Electronically Signed: Yovani Gordon MD at 17:05 EDT ,
[2022-03-26 12:33] LABS: Absolute Neutrophil Count 3.1 X10^3/uL (2.0-7.7); Basophil# 0.06 X10^3/uL; Basophil% 0.9 % (0-1); Eosinophil# 0.32 X10^3/uL; Hematocrit 38.2 % (37-47); Hemoglobin 12.2 g/dL (12.0-15.0); Lymphocyte % 34.6 % (19-41); Mean Corp Hgb Conc 31.9 g/dL (32-36); Mean Corpuscular Hgb 29.6 pg (27.0-32.0); Mean Corpuscular Volume 92.7 fL (81-99); Mean Platelet Vol. 11.1 fl (6.2-12.0); Monocyte# 0.66 X10^3/uL; Monocyte% 10.4 % (0-10); NRBC Flagged by Analyzer 0 % (0-5); Neutrophil # 3.09 X10^3/uL (2.7-7.7); Neutrophil % 48.6 % (47-70); Platelet Count 261 K/mm3 (150-450); RBC Distribution Width CV 13.1 % (11.6-14.6); RBC Distribution Width SD 44.4 fl (35.1-43.9); Red Blood Count 4.12 M/mm3 (4.2-5.4); White Blood Count 6.4 K/mm3 (4.4-11.0)
[2022-03-26 12:45] LABS: Vitamin D,25 Hydroxy 25.6 ng/mL
[2022-03-26 12:53] LABS: AST(SGOT) 30 U/L (15-37); Alanine Aminotransfer ALT/SGPT 46 U/L (13-56); Albumin, Serum 3.8 g/dL (3.2-5.0); Alkaline Phosphatase 88 U/L (45-117); Anion Gap 5 (5-15); BUN 21 mg/dL (7-18); Calcium,Total 9.2 mg/dL (8.5-10.1); Chloride 103 mmol/L (98-107); Creatinine, Serum 0.96 mg/dL (0.55-1.02); EST Glomerular Filtration Rate 64 mL/min (>60); Est Glom Filt Rate - Afr Amer 77 mL/min (>60); Globulin 3.9 g/dL (2.2-4.2); Glucose 91 mg/dL (74-106); Potassium 4.3 mmol/L (3.5-5.1); Protein, Total 7.7 g/dL (6.4-8.2); Sodium Level 137 mmol/L (136-145); Thyroid Stim Hormone (TSH) 2.99 uIU/mL (0.358-3.74)
== END | disposition home or self-care (01) ==
LOC: POLAB3 09:49 → RAD 11:34
PROVIDERS: PCP Family Medicine Geriatric Medicine; Visit Provider Family Medicine Geriatric Medicine
DX: E55.9 Vitamin D deficiency, unspecified (principal); I10 Essential (primary) hypertension; M54.50 Low back pain, unspecified
CPT/HCPCS: 36415; 72100; 80053; 82306; 84443; 85025

== ENCOUNTER → 2022-03-26 | Outpatient (CLI) | payer BC, SELFPAY | END | disposition home or self-care (01) | LOC: LABSPEC 11:31 | PROVIDERS: PCP Family Medicine Geriatric Medicine; Visit Provider Family Medicine Geriatric Medicine | DX: N39.0 Urinary tract infection, site not specified (principal) | CPT/HCPCS: 87086; 87088 ==

== ENCOUNTER → 2023-07-04 | Outpatient (CLI) | payer BC, SELFPAY ==
[2023-07-04 17:45] LABS: Absolute Lymphocyte Count 2.71 X10^3/uL (0.83-4.51); Absolute Neutrophil Count 4.4 X10^3/uL (2.0-7.7); Basophil# 0.07 X10^3/uL; Basophil% 0.9 % (0-1); Eosinophil# 0.12 X10^3/uL; Eosinophils% 1.5 % (0-5); Hematocrit 40.6 % (37-47); Lymphocyte # 2.71 X10^3/ul (0.83-4.51); Lymphocyte % 33.3 % (19-41); Mean Corpuscular Hgb 29.2 pg (27.0-32.0); Mean Corpuscular Volume 91.2 fL (81-99); Mean Platelet Vol. 11.5 fl (6.2-12.0); Monocyte# 0.78 X10^3/uL; Monocyte% 9.6 % (0-10); NRBC Flagged by Analyzer 0 % (0-5); Neutrophil # 4.42 X10^3/uL (2.7-7.7); Neutrophil % 54.3 % (47-70); Platelet Count 293 K/mm3 (150-450); RBC Distribution Width CV 12.8 % (11.6-14.6); RBC Distribution Width SD 42.5 fl (35.1-43.9); Red Blood Count 4.45 M/mm3 (4.2-5.4); White Blood Count 8.1 K/mm3 (4.4-11.0)
[2023-07-04 18:23] LABS: AST(SGOT) 26 U/L (15-37); Alanine Aminotransfer ALT/SGPT 42 U/L (13-56); Alkaline Phosphatase 110 U/L (45-117); Anion Gap 6 (5-15); BUN 21 mg/dL (7-18); BUN/Creat Ratio 28.2 RATIO (10-20); Calcium,Total 9.6 mg/dL (8.5-10.1); Chloride 103 mmol/L (98-107); Creatinine, Serum 0.74 mg/dL (0.55-1.02); EST Glomerular Filtration Rate 85 mL/min (>60); Est Glom Filt Rate - Afr Amer 102 mL/min (>60); Glucose 97 mg/dL (74-106); Potassium 4.2 mmol/L (3.5-5.1); Sodium Level 138 mmol/L (136-145); Thyroid Stim Hormone (TSH) 0.29 uIU/mL (0.358-3.74)
== END | disposition home or self-care (01) ==
PROVIDERS: PCP Family Medicine Geriatric Medicine; Visit Provider Family Medicine Geriatric Medicine
DX: R53.83 Other fatigue (principal)
CPT/HCPCS: 36415; 80053; 84443; 85025

== ENCOUNTER → 2024-07-07 | Outpatient (CLI) | payer MEDICAID, SELFPAY ==
--- NOTE | 2024-07-07 12:45 | RAD_ITS ---
STUDY: X-RAY - LUMBAR SPINE REASON FOR EXAM: Female, 58 years old. Low back pain. TECHNIQUE: 4 view(s) of the lumbar spine were obtained. COMPARISON: March 26, 2022 FINDINGS: Osteopenia. Normal lumbar lordosis. No scoliosis. Normal vertebral alignment. Mild lower thoracic and lumbosacral facet sclerosis. Minimal diffuse intervertebral disc space narrowing with small osteophytes. Cholecystectomy clips. RAD/L/S Spine Min 4 Views IMPRESSION: Osteopenia with mild diffuse lower thoracic and lumbosacral spondylosis. Electronically Signed: Antoine Dickey MD at 13:26 EDT ,
[2024-07-07 13:05] LABS: Absolute Lymphocyte Count 2.36 X10^3/uL (0.83-4.51); Absolute Neutrophil Count 5.2 X10^3/uL (2.0-7.7); Basophil# 0.06 X10^3/uL; Basophil% 0.7 % (0-1); Eosinophil# 0.14 X10^3/uL; Eosinophils% 1.7 % (0-5); Hematocrit 37.4 % (37-47); Lymphocyte # 2.36 X10^3/ul (0.83-4.51); Mean Corp Hgb Conc 32.1 g/dL (32-36); Mean Corpuscular Hgb 28.6 pg (27.0-32.0); Mean Corpuscular Volume 89.3 fL (81-99); Mean Platelet Vol. 11.9 fl (6.2-12.0); Monocyte# 0.69 X10^3/uL; Monocyte% 8.2 % (0-10); NRBC Flagged by Analyzer 0 % (0-5); Neutrophil # 5.17 X10^3/uL (2.7-7.7); Neutrophil % 61.2 % (47-70); Platelet Count 284 K/mm3 (150-450); RBC Distribution Width SD 42.4 fl (35.1-43.9); Red Blood Count 4.19 M/mm3 (4.2-5.4); White Blood Count 8.4 K/mm3 (4.4-11.0)
[2024-07-07 15:15] LABS: ALB/GLOB Ratio 1.1 RATIO (0.9-2.4); AST(SGOT) 28 U/L (15-37); Alanine Aminotransfer ALT/SGPT 45 U/L (13-56); Alkaline Phosphatase 98 U/L (45-117); Anion Gap 11 (5-15); BUN 21 mg/dL (7-18); BUN/Creat Ratio 27.7 RATIO (10-20); Calcium,Total 9.6 mg/dL (8.5-10.1); Chloride 105 mmol/L (98-107); Cholesterol 180 mg/dL (200); Creatinine, Serum 0.76 mg/dL (0.55-1.02); EST Glomerular Filtration Rate 83 mL/min (>60); Est Glom Filt Rate - Afr Amer 100 mL/min (>60); Globulin 3.6 g/dL (2.2-4.2); Glucose 116 mg/dL (74-106); High Density Lipoprotein 74 mg/dL; Potassium 3.6 mmol/L (3.5-5.1); Protein, Total 7.6 g/dL (6.4-8.2); Sodium Level 140 mmol/L (136-145); Thyroid Stim Hormone (TSH) 0.117 uIU/mL (0.358-3.740); Triglycerides 181 mg/dL; Very Low Density Lipoprotein 36 mg/dL (5-40)
== END | disposition home or self-care (01) ==
LOC: POLAB3 11:35
PROVIDERS: PCP Family Medicine Geriatric Medicine; Visit Provider Family Medicine Geriatric Medicine
DX: R53.83 Other fatigue (principal); E78.5 Hyperlipidemia, unspecified; M54.50 Low back pain, unspecified
CPT/HCPCS: 36415; 72110; 80053; 80061; 84443; 85025

== ENCOUNTER → 2024-08-13 | Outpatient (CLI) | payer OTHER, SELFPAY ==
[2024-08-13 13:10] LABS: Thyroid Stim Hormone (TSH) 0.184 uIU/mL (0.358-3.740)
== END | disposition home or self-care (01) ==
LOC: POLAB3 12:11
PROVIDERS: PCP Family Medicine Geriatric Medicine; Visit Provider Family Medicine Geriatric Medicine
DX: E03.9 Hypothyroidism, unspecified (principal)
CPT/HCPCS: 36415; 84443

== ENCOUNTER → 2024-10-01 | Outpatient (CLI) | payer OTHER, SELFPAY | END | disposition home or self-care (01) | LOC: POLAB3 09:53 | PROVIDERS: PCP Family Medicine Geriatric Medicine; Visit Provider Family Medicine Geriatric Medicine | DX: E03.9 Hypothyroidism, unspecified (principal) | CPT/HCPCS: 36415; 84443 ==

== ENCOUNTER 2024-10-22 09:30 | Outpatient (RCR) | payer MEDICARE, OTHER, SELFPAY ==
--- NOTE | 2024-08-31 11:32 | HP.PTEVAL ---
Patient's Visit Information Visit Information Visit Information: JAIME JENKINS is a 58 year old F referred to Physical Therapy by Dr. Edilberto Loza MD with a diagnosis of LOW BACK PAIN ,LUMBAR RADICULOPATHY. Date of Evaluation: 08/31/24 Physical Therapist: Long Page, PT, Cert MDT, OCS Visit Plan Frequency: 2x /Week Duration: 4 Weeks Plan: PT INTERVENTIONS DLS ,POSTURAL EX'S ,FUNCTIONAL STRENGTHENING MODALITIES PRN AND POSTURE TRAINING, Subjective Subjective: This 58 y/o female presents to physical therapy with lumbar radiculopathy, Patient has had lumbar pain many years. Patient patient most recently ~ 1 year with back and paresthesia in legs. Seen DR recommended PT and x-rays DDD and osteopenia. Recommended prednisone, Aggravating sitting ,standing 10mins ,walking 2 mins and unable bend and lift. Alleviating rest. Coughing/sneezing-. Bowel/bladder -. Patient has h/o compression fx thoracic. Patient mcnair had pain management in past, Patient pain affects sleeping .Patient located symmetrical LBP described as ache. Patient condition affects QOL and function/housework tasks. SOCAIL: VOCATION: Disability Pain Bilateral Back: Pain Intensity (Out of 10): 8 Pain Intensity Range: 10 Objective Objective: POSTURE: mild forward posture GAIT: reciprocal pattern PALAPTION: unremarkable MMT: quads/hams 4/5 ,hip flexion 4-/5 ,ankle 4/5 LUMBAR ROM: flexion min los ,extension mod loss ,side glides min loss FLEXABILITY : hamstrings min tight Special Tests L/S Slump test left side: Negative L/S Slump test right side: Negative L/S Left Straight Leg Raise: Negative L/S Right Straight Leg Raise: Negative Lumbar Standing: Flexion - Mechanical Response: No effect Lumbar Standing: Flexion - Symptoms During Testing: Increases Lumbar Standing: Flexion - Symptoms After Testing: No worse Lumbar Standing: Extension - Mechanical Response: No effect Lumbar Standing: Extension - Symptoms During Testing: Increases Lumbar Standing: Extension - Symptoms After Testing: No worse Lumbar Standing: Right Side Glides - Mechanical Response: No effect Lumbar Standing: Right Side [place] - Symptoms During Testing: No effect Lumbar Standing: Right Side [place] - Symptoms After Testing: No effect Lumbar Standing: Left Side [place] - Mechanical Response: No effect Lumbar Standing: Left Side [place] - Symptoms During Testing: No effect Lumbar Standing: Left Side [place] - Symptoms After Testing: No effect Lumbar Lying: Flexion - Mechanical Response: No effect Lumbar Lying: Flexion - Symptoms During Testing: Increases Lumbar Lying: Flexion - Symptoms After Testing: No worse Comments:: NT Balance/Special Test Scores Oswestry Low Back Score: 28 Goals Goal 1:: Patient to be I with HEP for back Goal Time Frame: 4-6 Weeks Goal 2:: Patient to improve lumbar ROM for function for ADL and housework tasks Goal Time Frame: 4-6 Weeks Goal 3:: Patient to demonstrate 50% improvement with improve function and ADL Goal Time Frame: 4-6 Weeks Goal 4:: Patient to improve back oswestry score by 5 points to improve QOL Goal Time Frame: 4-6 Weeks Goal 5:: Patient be able to walk and stand > 10mins for ADL and housework Goal Time Frame: 4-6 Weeks Rehabilitation Potential Physical Therapy Diagnosis: This patient has lumbar pain with h/o compression fx thoracic with pain worse with positioning and motioning testing thus benefit from skilled PT Rehabilitation Potential: Good Anticipated Interventions Patient/Client Instruction: Educate patient on: Condition and Plan of Care For the Purpose of:: To decrease pain, To increase ROM, To increase oxygenation perfusion, To improve ability to perform ADL's, To increase tolerance to activity/condition/position, To improve ability of physical actions for home/community/work/leisure, To improve health of tissue, To decrease soft tissue restriction, To increase flexibility/ROM, To improve endurance and To prevent re-injury Therapeutic Exercise to Include: Strength training, Power training, Flexibilty training, Passive ROM and Dynamic Lumbar Stabilization Comment: BLE For the Purpose of:: To decrease pain, To increase ROM, To improve muscle performance and motor function, To increase tolerance to activity/condition/position, To improve ability of physical actions for home/community/work/leisure, To improve gait and locomotor functions, To improve health of tissue, To decrease soft tissue restriction and To increase flexibility/ROM Text: Thank you for the opportunity to evaluate your patient. For Medicare and Medicare HMO plans, please review the plan of care and approve it. It will need to be FAXED BACK to us at [phone] for Medicare purposes. For Medicare only, by signing this I certify the plan of care. Please let me know if there are questions or concerns regarding this plan of care. Physician Signature: Date:
--- NOTE | 2024-11-12 14:51 | HP.PTDCSUM ---
Discharge Summary D/C summary: It has been my pleasure to treat JAIME JENKINS referred by Dr. Edilberto Loza MD, with the diagnosis of LOW BACK PAIN ,LUMBAR RADICULOPATHY for a total of 13 visit(s). Discharge Date: Please see the following information for a summary of their discharge status. Subjective Subjective: Patient HEP are helpling ,pain is soreness especially in legs Back is better Patient will try ex;s on own and will return in 3 weeks Pain Bilateral Back: Pain Intensity (Out of 10): 2 Left Buttocks: Pain Intensity (Out of 10): 0 Overall Improvement % Improvement: 75 Objective Objective/Function: Patient making progress but pain in legs POSTURE: mild forward posture GAIT: reciprocal pattern PALAPTION: unremarkable MMT: quads/hams 4/5 ,hip flexion 4/5 ,ankle 4/5 LUMBAR ROM: flexion min los ,extension WFL ,side glides min loss FLEXABILITY : hamstrings min tight Goals Goal 1:: Patient to be I with HEP for back Goal Progress: Progressing Goal 2:: Patient to improve lumbar ROM for function for ADL and housework tasks Goal Progress: Progressing Goal 3:: Patient to demonstrate 80% improvement with improve function and ADL( new goal) Goal Progress: Progressing Goal 4:: Patient to improve back oswestry score by 5 points to improve QOL Goal 5:: Patient be able to walk and stand > 15mins for ADL and housework ( new goal) Plan Plan: D/C TO HEP D/C Information d/c sentence: If there are questions or concerns regarding this patient's physical therapy, please feel free to call me at [phone]. Thank you for the referral of this patient. Sincerely, Long Page, PT, Cert MDT, OCS Balance/Gait/Functional tests Balance/Special Test Scores Oswestry Low Back Score: 28 Improvement % Improvement: 75
== END 2024-10-22 19:00 | disposition home or self-care (01) ==
LOC: PT 09:30
PROVIDERS: PCP Family Medicine Geriatric Medicine; Referring Provider Family Medicine Geriatric Medicine; Visit Provider Family Medicine Geriatric Medicine
DX: M54.50 Low back pain, unspecified (principal); M54.16 Radiculopathy, lumbar region
CPT/HCPCS: 97035; 97110; 97162; 97530

== ENCOUNTER → 2025-01-14 | Outpatient (CLI) | payer MEDICARE, SELFPAY ==
[2025-01-14 12:25] LABS: Absolute Lymphocyte Count 2.15 X10^3/uL (0.83-4.51); Absolute Neutrophil Count 4.2 X10^3/uL (2.0-7.7); Basophil# 0.08 X10^3/uL; Basophil% 1.1 % (0-1); Eosinophil# 0.08 X10^3/uL; Eosinophils% 1.1 % (0-5); Hematocrit 38.5 % (37-47); Hemoglobin 12.4 g/dL (12.0-15.0); Lymphocyte # 2.15 X10^3/ul (0.83-4.51); Lymphocyte % 30.1 % (19-41); Mean Corp Hgb Conc 32.2 g/dL (32-36); Mean Corpuscular Hgb 29.2 pg (27.0-32.0); Mean Corpuscular Volume 90.8 fL (81-99); Mean Platelet Vol. 10.9 fl (6.2-12.0); Monocyte# 0.63 X10^3/uL; Monocyte% 8.8 % (0-10); NRBC Flagged by Analyzer 0 % (0-5); Neutrophil # 4.18 X10^3/uL (2.7-7.7); Neutrophil % 58.6 % (47-70); Platelet Count 276 K/mm3 (150-450); RBC Distribution Width SD 42.9 fl (35.1-43.9); Red Blood Count 4.24 M/mm3 (4.2-5.4); White Blood Count 7.1 K/mm3 (4.4-11.0)
[2025-01-14 13:31] LABS: ALB/GLOB Ratio 1.4 RATIO (0.9-2.4); AST(SGOT) 32 U/L (<=31); Alanine Aminotransfer ALT/SGPT 37 U/L (<=34); Albumin, Serum 4.6 g/dL (3.4-4.8); Alkaline Phosphatase 81 U/L (35-104); Anion Gap 13 (5-15); BUN 16 mg/dL (4-19); BUN/Creat Ratio 18.4 RATIO (10-20); Calcium,Total 9.9 mg/dL (7.6-11.0); Carbon Dioxide 25.7 mmol/L (21.0-32.0); Chloride 101 mmol/L (98-108); Cholesterol 201 mg/dL (<=200); Creatinine, Serum 0.87 mg/dL (0.70-1.20); EST Glomerular Filtration Rate 75 (>60); Globulin 3.3 g/dL (2.2-4.2); Glucose 91 mg/dL (70-99); High Density Lipoprotein 86 mg/dL; Low Density Lipoprotein Calc. 93 mg/dL; Potassium 4.7 mmol/L (3.3-5.1); Protein, Total 7.9 g/dL (5.9-8.4); Sodium Level 140 mmol/L (133-145); Thyroid Stim Hormone (TSH) 0.654 uIU/mL (0.300-4.200); Total Bilirubin 0.23 mg/dL (0.00-1.30); Triglycerides 107 mg/dL; Very Low Density Lipoprotein 21 mg/dL (5-40); cholesterol:hdl ratio screen 2.33
== END | disposition home or self-care (01) ==
LOC: LAB 11:53
PROVIDERS: PCP Family Medicine Geriatric Medicine; Referring Provider Family Medicine Geriatric Medicine; Visit Provider Family Medicine Geriatric Medicine
DX: R53.83 Other fatigue (principal); E78.5 Hyperlipidemia, unspecified
CPT/HCPCS: 36415; 80053; 80061; 84443; 85025

== ENCOUNTER → 2025-01-15 | Outpatient (CLI) | payer MEDICARE, SELFPAY ==
[2025-01-15 09:26] LABS: CORTISOL AM 0.66 ug/dL (6.02-18.40)
== END | disposition home or self-care (01) ==
LOC: LAB 07:51
PROVIDERS: PCP Family Medicine Geriatric Medicine; Referring Provider Family Medicine Geriatric Medicine; Visit Provider Family Medicine Geriatric Medicine
DX: E24.9 Cushing's syndrome, unspecified (principal)
CPT/HCPCS: 36415; 82533

== ENCOUNTER → 2025-04-20 | Outpatient (CLI) | payer MEDICARE, SELFPAY ==
--- NOTE | 2025-04-20 09:00 | RAD_ITS ---
PROCEDURE: UPPER GI DUAL CONTRAST 04/20/2025 REASON FOR EXAM: HEARTBURN, PRE OP TECHNIQUE: The patient ingested barium. Multiple images of the esophagus, stomach and duodenum were obtained. 1 minute and 14 seconds of fluoroscopy. 122.3 mGy. COMPARISON: None FINDINGS: The esophagus is unremarkable. No evidence of gastroesophageal obstruction. No mass lesion. No gastroesophageal reflux. The stomach and duodenum are unremarkable. No evidence of ulceration. No mass lesion is seen. RAD/Upper GI Dual Contrast IMPRESSION: Unremarkable air contrast upper GI series. Reading Location: [facility]
== END | disposition home or self-care (01) ==
PROVIDERS: PCP Family Medicine Geriatric Medicine
DX: Z01.818 Encounter for other preprocedural examination (principal); E66.01 Morbid (severe) obesity due to excess calories; Z68.41 Body mass index [BMI] 40.0-44.9, adult; K21.9 Gastro-esophageal reflux disease without esophagitis; E03.9 Hypothyroidism, unspecified; R12 Heartburn
CPT/HCPCS: 74246

== ENCOUNTER → 2025-04-30 | Outpatient (CLI) | payer MEDICARE, SELFPAY ==
[2025-05-05 17:08] LABS: Cotinine Screen Blood <1.0 ng/mL (.); Nicotine Blood <1.0 ng/mL (.)
== END | disposition home or self-care (01) ==
PROVIDERS: PCP Family Medicine Geriatric Medicine; Referring Provider Family Medicine Geriatric Medicine
DX: Z01.812 Encounter for preprocedural laboratory examination (principal); Z01.818 Encounter for other preprocedural examination
CPT/HCPCS: 36415; 80323; G0480

== ENCOUNTER → 2025-07-08 | Outpatient (CLI) | payer MEDICARE, SELFPAY ==
[2025-07-08 10:46] LABS: Hematocrit 39.3 % (37-47); Hemoglobin 13.0 g/dL (12.0-15.0); Immature Granulocytes Count 0.040 X10^3/uL (0.0-0.0); Mean Corp Hgb Conc 33.1 g/dL (32-36); Mean Corpuscular Volume 89.3 fL (81-99); Mean Platelet Vol. 11.0 fl (6.2-12.0); NRBC Flagged by Analyzer 0 % (0-5); Platelet Count 266 K/mm3 (150-450); RBC Distribution Width CV 12.7 % (11.6-14.6); RBC Distribution Width SD 41.5 fl (35.1-43.9); Red Blood Count 4.40 M/mm3 (4.2-5.4); White Blood Count 11.0 K/mm3 (4.4-11.0)
[2025-07-08 12:01] LABS: AST(SGOT) 42 U/L (<=31); Alanine Aminotransfer ALT/SGPT 66 U/L (<=34); Albumin, Serum 4.4 g/dL (3.4-4.8); Alkaline Phosphatase 80 U/L (35-104); Anion Gap 16 (5-15); BUN 15 mg/dL (4-19); BUN/Creat Ratio 21.2 RATIO (10-20); Calcium,Total 9.3 mg/dL (7.6-11.0); Carbon Dioxide 22.5 mmol/L (21.0-32.0); Chloride 100 mmol/L (98-108); Ferritin 189 ng/mL (22-378); Globulin 3.3 g/dL (2.2-4.2); Glucose 82 mg/dL (70-99); Iron 41 ug/dL (50-170); Magnesium 1.9 mg/dL (1.5-2.2); Potassium 3.7 mmol/L (3.3-5.1); Vitamin B12 1798 pg/mL (180-914)
[2025-07-08 12:13] LABS: Cholesterol 185 mg/dL (<=200); Low Density Lipoprotein Calc. 112 mg/dL; Triglycerides 68 mg/dL; Very Low Density Lipoprotein 14 mg/dL (5-40); cholesterol:hdl ratio screen 3.09
[2025-07-08 12:50] LABS: FOLATES,SERUM (FOLIC ACID) 33.70 ng/mL (4.60-34.80)
[2025-07-08 18:08] LABS: Xtra Tube Kwok EXTRA TUBE
[2025-07-15 06:08] LABS: Zinc, Plasma or Serum 79 ug/dL (44-115)
== END | disposition home or self-care (01) ==
LOC: POLAB3 09:36
PROVIDERS: PCP Family Medicine Geriatric Medicine
DX: E78.5 Hyperlipidemia, unspecified (principal); E66.01 Morbid (severe) obesity due to excess calories; Z68.41 Body mass index [BMI] 40.0-44.9, adult; R53.83 Other fatigue; E03.9 Hypothyroidism, unspecified; Z98.84 Bariatric surgery status; E61.7 Deficiency of multiple nutrient elements; E53.8 Deficiency of other specified B group vitamins; K21.9 Gastro-esophageal reflux disease without esophagitis
CPT/HCPCS: 36415; 80053; 80061; 82607; 82728; 82746; 83540; 83735; 84443; 84630; 85025

== ENCOUNTER → 2025-07-17 | Outpatient (CLI) | payer MEDICARE, SELFPAY ==
--- OUTSIDE RECORDS SUMMARY | 2025-07-17 08:53 | XMS RPT_ITS | CCD ---
Author Organization [facility] Providers Care Cryptozoologist Name Role Phone INDU BUSBY Unavailable Unavailable PROVIDER, UNKNOWN Unavailable Unavailable No, PCP Unavailable Unavailable REFERRING, BRITTNEEY WO ID Primary Care Physician Unav ailable Ave'KENDRA ESTEPHANIA BIGGS Attending Unavaila ble REFERRING, PHY WO ID Primary Care Unavailable Unavailable Primary Care Provider Unavailabl e FISTEK, KARIE K Attending Unavailable FISTEK, KARIE K Attending Unavailable FISTEK, KARIE K Attending Unavailable FISTEK, KARIE K Attending Unavailable FISTEK, KARIE K Attending Unavailable Dago ANN, Kell Primary Care Provider Jordon Santiago DO Unavailable Dago ANN, Dr. Edilberto Giron Primary Care Provider Dago ANN, Dr. Edilberto Giron Attending Provider Dago ANN, Dr. Edilberto Giron Referring Provider Dago ANN, Dr. Edilberto Giron Primary Care Provider Dago ANN, Dr. Edilberto Giron Attending Provider Dago ANN, Dr. Edilberto Giron Referring Provider TRISH BHATIA Attending Provider TRISH BHATIA Referring Provider BIBIANA RAMIREZ Attending Provider Rain BENITO, Gaye Rowe Unavailable Unavailab le DAGO, EDILBERTO-CHI Primary Care Unavailable JORDON SANTIAGO Attending Unavailable JORDON SANTIAGO Admitting Unavailable DAGO, EDILBERTO-CHI Primary Care Unavailable POZSGAY, JORDON Attending Unavailable POZSGAYJORDON Admitting Unavailable DAGO, EDILBERTO-CHI Primary Care Unavailable DAGO, EDILBERTO-CHI Referring Unavailable TRISH BHATIA Attending Unavailab le DAGO, EDILBERTO-CHI Primary Care Unavailable POZSGAY, JORDON Attending Unavailable DAGO, EDILBERTO-CHI Primary Care Unavailable POZSGRAFAT, JORDON Attending Unavailable DAGO, EDILBERTO-CHI Primary Care Unavailable DAGO, EDILBERTO-CHI Referring Unavailable POZSGRAFAT, JORDON Attending Unavailable DAGO, EDILBERTO-CHI Primary Care Unavailable DAGO, EDILBERTO-CHI Referring Unavailable TRISH BHATIA Attending Unavailab le DAGO, EDILBERTO-CHI Primary Care Unavailable DAGO, EDILBERTO-CHI Referring Unavailable TRISH BHATIA Attending Unavailab le DAGO, EDILBERTO-CHI Primary Care Unavailable TRISH BHATIA Referring Unavailab le TRISH BHATIA Attending Unavailab le DAGO, EDILBERTO-CHI Primary Care Unavailable DAGO, EDILBERTO-CHI Referring Unavailable POLAKIA, JORDON Attending Unavailable DAGO, EDILBERTO-CHI Primary Care Unavailable POZSGAY, JORDON Attending Unavailable DAGO, EDILBERTO-CHI Primary Care Unavailable BIBIANA ESPINOZA Attending Unavailable DAGO, EDILBERTO-CHI Primary Care Unavailable TRISH BHATIA Referring Unavailab CRICKET Delarosa Attending Unavailable DAGO, EDILBERTO-CHI Primary Care Unavailable TRISH BHATIA Referring Unavailab JF Hampton Attending Unavailable DAGO, EDILBERTO-CHI Primary Care Unavailable BIBIANA ESPINOZA Attending Unavailable DAGO, EDILBERTO-CHI Primary Care Unavailable BIBIANA ESPINOZA Attending Unavailable Dago, Edilberto Chi Referring Unavailable Dago, Edilberto Chi Attending Unavailable Dago, Edilberto Chi Primary Care Unavailable Dago, Edilberto Chi Referring Unavailable Dago, Edilberto Chi Primary Care Unavailable ECKBERG, DYLON Attending Unavailable Dago, Edilberto Chi Referring Unavailable Dago, Edilberto Chi Attending Unavailable Dago, Edilberto Chi Primary Care Unavailable Dago, Edilberto Chi Attending Unavailable Dago, Edilberto Chi Primary Care Unavailable Dago, Edilberto Chi Attending Unavailable Dago, Edilberto Chi Primary Care Unavailable Dago, Edilberto Chi Referring Unavailable Dago, Edliberto Chi Attending Unavailable Dago, Edilberto Chi Primary Care Unavailable Dago, Edilberto Chi Primary Care Unavailable ECKBERG, DYLON Referring Unavailable ECKBERG, DYLON Attending Unavailable Dago, Edilberto Chi Primary Care Unavailable LONNIE DYLON Referring Unavailable LONNIEMOSHEDYLON Attending Unavailable Dago, Edilberto Chi Primary Care Unavailable Edilberto Loza Chi Referring Unavailable Edilberto Loza Chi Attending Unavailable Edilberto Loza Chi Referring Unavailable Edilberto Loza Chi Attending Unavailable Dago, Edilberto Chi Primary Care Unavailable Dago ANN, Dr. Edilberto Giron Primary Care Provider Dr. Edilberto Loza MD, Chi Referring Provider [phone] BIBIANA RAMIREZ Attending Provider UnavailBIBIAAN Rush Referring Provider Unavailnaif cisneros Medications Current Medications Medication Drug Class(es) Dates Sig (Normalized) Sig (Original) B Complex-C (SUPER B COMPLEX PO) (20 sources) take 1 tablet by juwan th once daily B Complex-C (SUPER B COMPLEX PO) Take 1 tablet by mouth daily. PATIENT STATES LAST TAKEN ON 06/19/25 Suspended take 1 tablet by mouth once juilus y B Complex-C (SUPER B COMPLEX PO) Take 1 tablet by mouth daily. PATIENT STATES LAST TAKEN ON 06/19/25 Active take 1 tablet by mouth once julius y B Complex-C (SUPER B COMPLEX PO) Take 1 tablet by mouth daily. Active biotin 5 mg oral capsule (20 sources) take 1 capsule by mo uth once daily biotin 5000 MCG capsule Take 1 capsule by mouth daily. PATIENT STATES LAST TAKEN ON 06/19/25 Active take 3 capsules by mouth once da jane biotin 5000 MCG capsule Take 3 capsules by mouth daily. Active Black Cohosh Extract (11 sources) BLACK COHOSH PO Take by mouth daily. PATIENT STATES LAST TAKEN ON 06/19/25 Active BLACK COHOSH PO Take by mouth. Active Calcium Carbonate (20 sources) take 1 tablet by juwan th once daily Calcium Carbonate (CALCIUM 600 PO) Take 1 tablet by mouth daily. PATIENT STATES LAST TAKEN ON 06/19/25 Suspended take 1 tablet by mouth once julius y Calcium Carbonate (CALCIUM 600 PO) Take 1 tablet by mouth daily. PATIENT STATES LAST TAKEN ON 06/19/25 Active take 1 tablet by mouth once julius y Calcium Carbonate (CALCIUM 600 PO) Take 1 tablet by mouth daily. Active calcium citrate 1040 mg oral tablet (2 sources) Start: 07-05-2025 take 2 tablets by mouth three times daily, then take 2 tablets by mouth three times daily calcium citrate 250 MG tablet Indications: H/O gastric bypass , Deficiency of multiple nutrient elements , Deficiency of other specified B group vitamins , Morbid obesity with BMI of 40.0-44.9, adult (HCC) , Gastroesophageal reflux disease without esophagitis Take 2 tablets (500 mg) by mouth 3 times daily. Take 2 tablets by mouth three times daily. 180 tablet 11 07/05/2025 Active cetirizine hydrochloride 10 mg chewable tablet (3 sources) Histamine-1 Receptor Antagonist cetirizine (ZyrTEC) 10 mg chewable tablet Chew once daily. Active cholecalciferol 0.05 mg oral capsule (20 sources) Vitamin D Start: 07-05-2025 take 2 capsules by mouth once daily Cholecalciferol (Vitamin D) 50 MCG (2000 UT) capsule Indications: H/O gastric bypass , Deficiency of multiple nutrient elements , Deficiency of other specified B group vitamins , Morbid obesity with BMI of 40.0-44.9, adult (HCC) , Gastroesophageal reflux disease without esophagitis Take 2 capsules (100 mcg) by mouth daily. 60 capsule 11 07/05/2025 Active End: 04-08-2025 take 1 tablet by mouth once daily cholecalciferol (Vitamin D-3) 250 MCG (51004 UT) tablet Take 10,000 Units by mouth daily. 04/08/2025 Discontinued (Therapy completed) take 1 capsule by mo uth once daily cholecalciferol (Vitamin D-3) 25 MCG (1000 UT) capsule Take 1 capsule (25 mcg) by mouth once daily. Active citalopram 20 mg oral tablet (20 sources) Serotonin Reuptake Inhibitor Start: 01-14-2025 End: 07-01-2025 take 1 tablet by mouth once daily citalopram (CeleXA) 20 MG tablet Indications: Major Depressive Disorder Take 20 mg by mouth daily. 01/14/2025 Active estrogens, conjugated (alf) 0.3 mg oral tablet (3 sources) Estrogen take 1 tablet by mouth once daily estrogens, conjugated, (Premarin) 0.3 mg tablet Take 1 tablet (0.3 mg) by mouth once daily. Take daily for 21 days then do not take for 7 days. Active gabapentin 400 mg oral capsule (6 sources) Anti-epileptic Agent Start: 10-13-2019 take 1 capsule by mouth once daily Gabapentin 400 mg capsule Active 400 mg PO DAILY October 13, 2019 1:00am metFORMIN hydrochloride 1000 mg oral tablet (8 sources) Biguanide Start: 02-19-2024 End: 11-15-2024 take 1 tablet by mouth twice daily at mealtime metFORMIN (Glucophage) 1,000 mg tablet Indications: Severe obesity (BMI >= 40) (Multi) Take 1 tablet (1,000 mg) by mouth 2 times a day with meals. 180 tablet 2 02/19/2024 11/15/2024 Active Start: 10-15-2023 End: 02-12-2024 take 1 tablet by mouth four times daily metFORMIN (Glucophage) 500 mg tablet Indications: Severe obesity (BMI >= 40) (Multi) Take 1 tablet (500 mg) by mouth 4 times a day. 120 tablet 3 10/15/2023 Active Start: 09-11-2023 End: 11-10-2023 take 1 tablet by mouth twice daily at mealtime metFORMIN (Glucophage) 500 mg tablet Indications: Severe obesity (BMI >= 40) (Multi) Take 1 tablet (500 mg) by mouth 2 times a day with meals. 60 tablet 1 09/11/2023 Active Multiple Vitamins-Minerals (Centrum Adults) tablet (2 sources) Start: 07-05-2025 take 40-44.9 tablets by mouth once daily Multiple Vitamins-Minerals (Centrum Adults) tablet Indications: H/O gastric bypass , Deficiency of multiple nutrient elements , Deficiency of other specified B group vitamins , Morbid obesity with BMI of 40.0-44.9, adult ([facility]) , Gastroesophageal reflux disease without esophagitis Take 2 tablets by mouth daily. 60 tablet 11 07/05/2025 Active multivitamin tablet (1 source) take 1 tablet by mouth once daily multivitamin tablet Take 1 tablet by mouth once daily. Centrum 50 + woman Active nystatin 223140 unt/ml oral suspension (2 sources) Polyene Antifungal Start: 07-05-2025 End: 09-03-2025 take 5 mL by mouth four times daily nystatin (Mycostatin) 046229 UNIT/ML suspension Take 5 mL (500,000 Units) by mouth 4 times daily. Swish in mouth and spit out. 280 mL 07/05/2025 09/03/2025 Active omeprazole 40 mg delayed release oral capsule (3 sources) Proton Pump Inhibitor omeprazole (PriLOSEC ) [address] capsule Take 1 capsule (40 mg) by mouth. Do not crush or chew. Active ondansetron 4 mg disintegrating oral tablet (10 sources) Serotonin-3 Receptor Antagonist Start: 06-30-2025 End: 07-08-2025 take 1 tablet by mouth every eight hours as needed for nausea ondansetron ODT (Zofran-ODT) 4 MG disintegrating tablet Take 1 tablet (4 mg) by mouth every 8 hours as needed for nausea for up to 7 days. 21 tablet 07/01/2025 12:19 PM EDT 06/30/2025 07/08/2025 Active Start: 06-30-2025 End: 06-30-2025 4 mg, IntraVENous, Once PRN, nausea, Starting on Sat06/30/25 at 1000, For 1 dose, Recovery (only), Initial antiemetic therapy. Start: 03-25-2025 End: 03-25-2025 4 mg, IntraVENous, Once PRN, nausea, vomiting, Starting on Taty 03/25/25 at 1430, For 1 dose, Preprocedure oxyCODONE hydrochloride 5 mg oral tablet (10 sources) Opioid Agonist Start: 06-30-2025 End: 07-01-2025 take 1 tablet by mouth every four hours as needed for pain oxyCODONE (Roxicodone) immediate release tablet 5 mg Start: 06-30-2025 End: 07-06-2025 take 1 tablet by mouth every six hours as needed for pain oxyCODONE (Roxicodone) 5 MG immediate release tablet Indications: Postoperative pain Take 1 tablet (5 mg) by mouth every 6 hours as needed for severe pain (7-10) for up to 5 days. 20 tablet 07/01/2025 12:19 PM EDT 07/01/2025 07/06/2025 Active Start: 06-30-2025 End: 06-30-2025 take 1 tablet by mouth every four hours as needed for pain 5 mg, Oral, Every 4 hours PRN, moderate pain (4-6), Starting on Sat06/30/25 at 1134, Phase II/On Unit pantoprazole 40 mg delayed release oral tablet (20 sources) Proton Pump Inhibitor Start: 01-12-2025 take 1 tablet by mouth once daily pantoprazole (ProtoNix) 40 MG EC tablet Indications: Gastroesophageal Reflux Disease Take 40 mg by mouth daily. 01/12/2025 Active raNITIdine 150 mg oral tablet (6 sources) Histamine-2 Receptor Antagonist Start: 10-13-2019 take 1 tablet by mouth once daily Ranitidine Hcl (Zantac) 150 mg tablet Active 150 mg PO DAILY October 13, 2019 1:00am thiamine 50 mg oral tablet (2 sources) Start: 07-05-2025 take 1 tablet by mouth once daily, then take 1 tablet by mouth once daily thiamine (Vitamin B-1) 50 MG tablet Indications: H/O gastric bypass , Deficiency of multiple nutrient elements , Deficiency of other specified B group vitamins , Morbid obesity with BMI of 40.0-44.9, adult (HCC) , Gastroesophageal reflux disease without esophagitis Take 1 tablet (50 mg) by mouth daily. Take 1 tablet by mouth daily. 30 tablet 07/05/2025 Active Varenicline (6 sources) Partial Cholinergic Nicotinic Agonist Start: 01-20-2018 take 1 tablet by mouth once daily Varenicline (Chantix) 1 EACH Tab.Ds.Pk Active 1 EACH PO DAILY January 20, 2018 5:31pm Start: 01-20-2018 take 1 tablet by juwan th once daily Varenicline Tartrate (Chantix) 1 EACH tablets,dose pack Active 1 NMA PO DAILY January 20, 2018 12:00am vitamin b12 0.5 mg sublingual tablet (2 sources) Vitamin B12 Start: 07-05-2025 take 1 tablet under the tongue once daily Cyanocobalamin 500 MCG sublingual tablet Indications: H/O gastric bypass , Deficiency of multiple nutrient elements , Deficiency of other specified B group vitamins , Morbid obesity with BMI of 40.0-44.9, adult (HCC) , Gastroesophageal reflux disease without esophagitis Place 1 tablet (500 mcg) under the tongue daily. Place 500 mcg under the tongue to dissolve once daily 30 tablet 07/05/2025 Active Completed/Discontinued Medications Medication Drug Class(es) Dates Sig (Normalized) Sig (Original) Acetaminophen (4 sources) Start: 06-30-2025 End: 07-01-2025 1,000 mg, IntraVENous, at 400 mL/hr, Administer over 15 Minutes, Every 6 hours scheduled (4 times per day), First dose on Sat06/30/25 at 1500 Start: 06-30-2025 End: 06-30-2025 take 1000 mg by mouth once, then take 4000 mg by mouth every twenty-four hours 1,000 mg, Oral, Once, On Sat06/30/25 at 0545, For 1 dose, Preprocedure, Maximum dose of acetaminophen is 4000 mg from all sources in 24 hours. Do not administer if patient has taken tylenol albuterol 0.83 mg/ml inhalation solution (2 sources) beta2-Adrenergic Agonist Start: 06-30-2025 End: 07-01-2025 ALPRAZolam 0.25 mg disintegrating oral tablet (2 sources) Benzodiazepine Start: 06-30-2025 End: 06-30-2025 take 0.25 mg by mouth once as needed for anxiety 0.25 mg, Oral, Once PRN, anxiety, Starting on Sat06/30/25 at 0542, For 1 dose, Preprocedure, Please do not administer prior to obtaining consent and / or history and physical. amoxicillin 500 mg oral capsule (6 sources) Penicillin-class Antibacterial Start: 01-20-2018 End: 10-13-2019 take 1 capsule by mouth every eight hours Amoxicillin 500 MG capsule Discontinued 500 mg PO Q8H January 20, 2018 12:00am October 13, 2019 10:58am calcium chloride 0.0014 meq/ml / potassium chloride 0.004 meq/ml / sodium chloride 0.103 meq/ml / sodium lactate 0.028 meq/ml injectable solution (2 sources) Start: 06-30-2025 End: 07-01-2025 take 50 mL intravenously every hour 50 mL/hr, IntraVENous, Continuous, Starting on Sat06/30/25 at 0545, Preprocedure, Upon admission to sameday - please start iv if patient does not have iv access. Use 500ml NS for patients on dialysis. celecoxib 400 mg oral capsule (2 sources) Nonsteroidal Anti-inflammatory Drug Start: 06-30-2025 End: 06-30-2025 400 mg, Oral, Once, On Sat06/30/25 at 0545, For 1 dose, Preprocedure, Avoid with sulfa allergy or creatinine greater than 1.5. Avoid severe hepatic impairment or renal transplant. Avoid if Age > 69. Please administer 60 min prior to procedure. diatrizoate meglumine-sodium (Gastrografin) 66-10 % solution 60 mL (2 sources) Start: 07-01-2025 End: 07-01-2025 take 60 mL by mouth once 60 mL, Oral, Once, On Taty 07/01/25 at 0815, For 1 dose, Administered at the time of the exam. 0.3 ml enoxaparin sodium 100 mg/ml prefilled syringe (2 sources) Low Molecular Weight Heparin Start: 06-30-2025 End: 07-01-2025 inject 30 mg by subcutaneous injection every twelve hours 30 mg, SubCUTAneous, Every 12 hours, First dose on Sat06/30/25 at 2200, Phase II/On Unit, Indication of Use: Prophylaxis-DVT/ PE 500 ml glucose 50 mg/ml / potassium chloride 0.02 meq/ml / sodium chloride 4.5 mg/ml injection (2 sources) Start: 06-30-2025 End: 07-01-2025 take 100 mL intravenously every hour 100 mL/hr, IntraVENous, Continuous, Starting on Sat06/30/25 at 1145, Phase II/On Unit 0.5 ml heparin sodium, porcine [id number] unt/ml prefilled syringe (2 sources) Unfractionated Heparin, Anti-coagulant Start: 06-30-2025 End: 06-30-2025 inject 5000 [IU] by subcutaneous injection once 5,000 Units, SubCUTAneous, Once, On Sat06/30/25 at 0545, For 1 dose, Preprocedure 1 ml hydrALAZINE hydrochloride 20 mg/ml injection (2 sources) Arteriolar Vasodilator Start: 06-30-2025 End: 07-01-2025 take 10 mg intravenously every four hours as needed for hypertension 10 mg, IntraVENous, Every 4 hours PRN, high blood pressure, Second line, give for blood pressure greater than 160 hold for heart greater than 100 bpm, Starting on Sat06/30/25 at 1520 1 ml HYDROmorphone hydrochloride 1 mg/ml cartridge (4 sources) Opioid Agonist Start: 06-30-2025 End: 07-01-2025 take 0.5 mg intravenously every four hours as needed 0.5 mg, IntraVENous, Every 4 hours PRN, IV breakthrough, Starting on Sat06/30/25 at 1511, If oral and IV narcotics ordered, use oral first and only use IV if oral is ineffective or cannot take oral. Do Not give oral and IV within 1 hour of each other unless specifically ordered. Start: 06-30-2025 End: 06-30-2025 0.5 mg, IntraVENous, Every 5 min PRN, severe pain (7-10), Starting on Sat06/30/25 at 1000, For 4 doses, Recovery (only), Phase I and Phase II- Initial therapy for severe pain (7-10). Restricted to a 90 minute time frame starting when the patient can verbally state their pain score. If after 2 doses the pain score does not decrease by more than one point, then call the provider. If oral meds are utilized, do not return to initial therapy medications. labetalol hydrochloride 5 mg/ml injectable solution (2 sources) beta-Adrenergic Keon Start: 06-30-2025 End: 07-01-2025 take 10 mg intravenously every four hours as needed for hypertension 10 mg, IntraVENous, Every 4 hours PRN, high blood pressure, First line, give for blood pressure greater than 160 hold for heart rate less than 60 bpm, Starting on Sat06/30/25 at 1520 levothyroxine (20 sources) l-Thyroxine Start: 07-01-2025 End: 07-01-2025 take 125 ug by mouth once daily before breakfast 125 mcg, Oral, Daily before breakfast, First dose on Taty 07/01/25 at 0900, Tube feeding (TF) interaction, obtain physician order to manage, recommend holding TF for 30 minutes before and after dose. Start: 10-28-2024 take 1 tablet by juwan th once daily levothyroxine (Synthroid, Levoxyl) 125 MCG tablet Indications: Hypothyroidism Take 125 mcg by mouth daily. 10/28/2024 Active Start: 01-20-2018 take 1 tablet by juwan th once daily Levothyroxine (Levoxyl) 150 MCG tablet Active 150 ug PO DAILY January 20, 2018 12:00am levothyroxine (S ynthroid, Levoxyl) 150 mcg tablet Take 137 mcg by mouth once daily in the morning. Take before meals. Active Multiple Vitamins-Minerals (CENTRUM SILVER ULTRA WOMENS PO) (20 sources) End: 07-05-2025 take 1 tablet by mouth once daily Multiple Vitamins-Minerals (CENTRUM SILVER ULTRA WOMENS PO) Take 1 tablet by mouth daily. PATIENT STATES LAST TAKEN ON 06/19/25 07/05/2025 Discontinued take 1 tablet by mouth once julius y Multiple Vitamins-Minerals (CENTRUM SILVER ULTRA WOMENS PO) Take 1 tablet by mouth daily. PATIENT STATES LAST TAKEN ON 06/19/25 Suspended take 1 tablet by mouth once julius y Multiple Vitamins-Minerals (CENTRUM SILVER ULTRA WOMENS PO) Take 1 tablet by mouth daily. PATIENT STATES LAST TAKEN ON 06/19/25 Active take 1 tablet by mouth once julius y Multiple Vitamins-Minerals (CENTRUM SILVER ULTRA WOMENS PO) Take 1 tablet by mouth daily. Active 1 ml naloxone hydrochloride 0.4 mg/ml injection (2 sources) Opioid Antagonist Start: 06-30-2025 End: 07-01-2025 0.4 mg, IntraVENous, Every 5 min PRN, opioid reversal, respiratory depression, Starting on Sat06/30/25 at 1137, +++ For RR ondansetron ODT (Zofran-ODT) disintegrating tablet 4 mg (2 sources) Start: 06-30-2025 End: 07-01-2025 take 1 tablet by mouth every eight hours as needed for nausea and vomiting ondansetron ODT (Zofran-ODT) disintegrating tablet 4 mg pantoprazole (ProtoNix) 40 mg in sodium chloride (PF) 0.9 % 10 mL injection (2 sources) Start: 06-30-2025 End: 07-01-2025 40 mg, IntraVENous, Administer over 2 Minutes, Daily, First dose on Sat06/30/25 at 1145, Phase II/On Unit Potassium Chloride (2 sources) Start: 06-30-2025 End: 06-30-2025 20 mEq, IntraVENous, Administer over 3 Hours, Once, On Sat06/30/25 at 1630, For 1 dose, Max infusion rate = 10 mEq/hr Promethazine (2 sources) Phenothiazine Start: 06-30-2025 End: 07-01-2025 take 1 tablet by mouth every six hours as needed for nausea and vomiting promethazine (Phenergan) tablet 12.5 mg 72 hr scopolamine 0.0139 mg/hr transdermal system (2 sources) Anticholinergic Start: 07-01-2025 End: 07-01-2025 1 patch, TransDERmal, Administer over 72 Hours, Every 72 hours, First dose on Sat07/01/25 at 0845, Apply to hairless area of skin behind the ear. 5 ml sodium chloride 9 mg/ml injection (20 sources) Start: 06-30-2025 End: 07-01-2025 10 mL, IntraVENous, Every 12 hours scheduled (2 times per day), First dose on Sat06/30/25 at 1145, Phase II/On Unit Start: 06-30-2025 End: 07-01-2025 Start: 06-30-2025 End: 07-01-2025 Start: 06-30-2025 End: 06-30-2025 500 mL, IntraVENous, at 1,00 0 mL/hr, Administer over 0.5 Hours, PRN, Anti-nausea, Starting on Sat06/30/25 at 1000, Recovery (only), Indications: Anti-nausea Start: 03-25-2025 End: 03-25-2025 10 mL, IntraVENous, Every 12 hours scheduled (2 times per day), First dose on Taty 03/25/25 at 2100, Preprocedure Start: 03-25-2025 End: 03-25-2025 10 mL, IntraVENous, Every 12 hours scheduled (2 times per day), First dose on Taty 03/25/25 at 2100, Preprocedure Start: 03-25-2025 End: 03-25-2025 10 mL, IntraVENous, Every 12 hours scheduled (2 times per day), First dose on Taty 03/25/25 at 2100, Preprocedure Start: 03-25-2025 End: 03-25-2025 10 mL, IntraVENous, Every 12 hours scheduled (2 times per day), First dose on Taty 03/25/25 at 2100, Preprocedure Start: 03-25-2025 End: 03-25-2025 take 100 mL intravenously every hour as needed, then take 20 mL intravenously every hour as needed 5-250 mL/hr, IntraVENous, PRN, if patient receiving piggyback infusions and maintenance fluids are not ordered OR KVO fluids to protect IV site / prevent frequent line interruptions/ long duration, Starting on Taty 03/25/25 at 1430, Preprocedure, For piggyback infusion, administer at same rate as piggyback for a total of 25 mL. Enter 25 mL into dose field and piggyback rate into rate field of order. If piggyback is infusing at a rate less than 100 mL/hr, enter 25 mL into dose field and 100 mL/hr into rate field of order. For KVO fluids, enter rate of 20 mL/hr or less into rate field of order. Start: 03-25-2025 End: 03-25-2025 take 10 mL intravenously once as needed 10 mL, IntraVENous, PRN, line care, Starting on [facility] 03/25/25 at 1430, Preprocedure, After every IV line use UNABLE TO FIND (20 sources) End: 07-01-2025 take 4 tablets by mouth once daily UNABLE TO FIND Take 4 tablets by mouth daily. Med Name: Focus Factor 07/01/2025 Discontinued (Stop taking at discharge) take 4 tablets by mouth once sherice ly UNABLE TO FIND Take 4 tablets by mouth daily. Med Name: Focus Factor Suspended take 4 tablets by mouth once sherice ly UNABLE TO FIND Take 4 tablets by mouth daily. Med Name: Focus Factor Active Problems Active Problems Problem Classification Problem Date Documented Da te Episodic/Chronic Anxiety disorders (6 sources) Anxiety disorder; Translations: [Other specified anxiety disorders] Onset: 5 03-02-2025 Chronic Esophageal disorders (20 sources) Gastroesophageal reflux disease; Translations: [Gastro-esophageal reflux disease without esophagitis] Onset: 2 08-13-2023 Chronic External Injury - Fall (2 sources) Other fall on same level, initial encounter; Translations: [Other fall on same level, initial encounter] Onset: 8 Miscellaneous mental health disorders (6 sources) Eating disorder; Translations: [Other specified eating disorder] Onset: 5 03-02-2025 Chronic Mood disorders (20 sources) Major depressive disorder; Translations: [Major depressive disorder, single episode, unspecified] Onset: 5 01-25-2025 Chronic Nutritional deficiencies (9 sources) Deficiency of multiple nutrient elements; Translations: [Deficiency of multiple nutrient elements] Onset: 5 03-11-2025 Episodic Other bone disease and musculoskeletal deformities (18 sources) Segmental and somatic dysfunction; Translations: [Segmental and somatic dysfunction of lumbar region] 10-13-2019 Episodic Other endocrine disorders (1 source) Florahome's syndrome, unspecified; 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, 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 Other gastrointestinal disorders (7 sources) History of bypass of stomach; Translations: [Bariatric surgery status] Onset: 5 06-30-2025 Episodic Other gastrointestinal disorders (2 sources) Bariatric surgery status; Translations: [Bariatric surgery status] Onset: 5 Episodic Other nervous system disorders (2 sources) Postoperative pain ; Translations: [Other acute postprocedural pain] 06-30-2025 Episodic Other nervous system disorders (2 sources) Other acute postprocedural pain; Translations: [Other acute postprocedural pain] Onset: 5 Episodic Other nutritional; endocrine; and metabolic disorders (20 sources) Body mass index 40+ - severely obese; Translations: [Morbid (severe) obesity due to excess calories] Onset: 3 10-15-2023 Chronic Other nutritional; endocrine; and metabolic disorders (5 sources) Morbid (severe) obesity due to excess calories; Translations: [Morbid (severe) obesity due to excess calories (CMS/HCC)] Onset: 3 Chronic Other nutritional; endocrine; and metabolic disorders (20 sources) Morbid obesity; Translations: [Morbid (severe) obesity due to excess calories] Onset: 5 01-25-2025 Chronic Other nutritional; endocrine; and metabolic disorders (3 sources) Body mass index (BMI) 40.0-44.9, adult; Translations: [Body mass index (BMI) 40.0-44.9, adult (HCC)] Onset: 5 Chronic Other screening for suspected conditions (not mental disorders or infectious disease) (1 source) Encounter for screening mammogram for malignant neoplasm of breast; Translations: [Encounter for screening mammogram for malignant neoplasm of breast] Onset: 5 Episodic Screening and history of mental health and substance abuse codes (1 source) Personal history of nicotine dependence; Translations: [Personal history of nicotine dependence] Onset: 5 Episodic Spondylosis; intervertebral disc disorders; other back problems (6 sources) Arthropathy of lumbar facet joint; Translations: [Spondylosis without myelopathy or radiculopathy, lumbar region] 10-13-2019 Chronic Substance-related disorders (6 sources) Nicotine dependence, cigarettes, uncomplicated; Translations: [Tobacco dependence caused by cigarettes] Onset: 8 02-19-2025 Chronic Thyroid disorders (20 sources) Hypothyroidism; Translations: [Hypothyroidism, unspecified] Onset: 2 01-25-2025 Chronic Unclassified (1 source) Low back pain, unspecified; Translations: [Low back pain, unspecified] Onset: Past or Other Problems Problem Classification Problem Date Documented Da te Episodic/Chronic Immunizations and screening for infectious disease (2 sources) Encounter for immunization; Translations: [Encounter for immunization] Onset: 01-20-2018 Episodic Malaise and fatigue (1 source) Other fatigue; Translations: [Other fatigue] Onset: 01-28-2025 Episodic Other fractures (6 sources) Wedge compression fracture of third thoracic vertebra, initial encounter for closed fracture; Translations: [Wedge compression fracture of first thoracic vertebra, initial encounter for closed fracture] Onset: 01-20-2018 Episodic Other fractures (20 sources) Compression fracture of thoracic spine; Translations: [Wedge compression fracture of unspecified thoracic vertebra, initial encounter for closed fracture] Onset: 01-20-2018 08-23-2022 Episodic Other fractures (20 sources) Compression fracture of thoracic vertebra; Translations: [Wedge compression fracture of unspecified thoracic vertebra, initial encounter for closed fracture] Onset: 01-20-2018 08-23-2022 Episodic Other injuries and conditions due to external causes (2 sources) Unspecified injury of right shoulder and upper arm, initial encounter; Translations: [Unsp injury of right shoulder and upper arm, init encntr] Onset: 01-20-2018 Episodic Spondylosis; intervertebral disc disorders; other back problems (3 sources) Dorsalgia, unspecified; Translations: [Radiculopathy, lumbar region] Onset: 01-20-2018 Episodic Thyroid disorders (2 sources) Disorder of thyroid, unspecified; Translations: [Disorder of thyroid, unspecified] Onset: 01-20-2018 Episodic Unclassified (3 sources) Onset: 10-15-2023 10-15-2023 Unclassified (20 sources) Patient encounter status 01-28-2025 Unclassified (4 sources) history of thoracic fracture 06-11-2022 Results Test Name Value Interpretation Reference Range Facility Zinc, Plasma or Serumon 09-0 ZINC,PLASMA/SER 79 ug/dL Normal 44-115 [facility] Comment on above: Order Comment: Test( s) [id number], Plasma or Serumwas developed and its performance characteristicsdetermined by [employer]. It has not been cleared or approvedby the Food and Drug Administration. Result Comment: Dete ction Limit = 5 Performed at: [address] [id number] Screening Unit Registered Nurse: Lou Leung MD, Phone: [phone] Performed By: #### L 501.5200, L503.0106, L503.6550, L503.6150, L500.4050, L3300.9900, L506.0200 ####[facility] [address] [place], [place], [address] Absolute lymphocyte countOrd ered By: Edilberto Dago on 07-08-2025 Lymphocytes Auto (Unsp spec) [#/Vol] 1.43 10*3/uL 0.83-4.51 [facility] Absolute neutrophil countOrd ered By: Edilberto Dago on 07-08-2025 Neutrophils (Bld) [#/Vol] 8.6 10*3/uL High 2.0-7.7 [facility] Anion gap in Serum or Plasma on 07-08-2025 Anion gap [Moles/Vol] 16 mmol/L High 5-15 [facility] Automated lymphocyte count a s percentage of total leukocytesOrdered By: Edilberto Dago on 07-08-2025 Lymphocytes/100 WBC Auto (Unsp spec) 13.0 % Low 19-41 [facility] BUN/creatinine ratioon 07-08 Urea nitrogen/Creatinine [Mass ratio] 21.2 mg/mg High 10-20 [facility] Basophil percentageOrdered B y: Edilberto Dago on 07-08-2025 Basophils/100 WBC (Bld) 0.5 % 0-1 [facility] Bilirubin, totalon Bilirubin [Mass/Vol] 0.48 mg/dL 0.00-1.30 [facility] CBC W/Diff, Automatedon 06-12 Absolute Lymph 1.43 X10 3/uL Normal 0.83-4.51 [facility] Comment on above: Order Comment: SEND COPY TO BIBIANA RAMIREZ Performed By: #### L 501.9520, L500.4100, L100.0100 ####[facility] [address] [place], [address] Absolute Neut 8.6 X10 3/uL High 2.0-7.7 [facility] Comment on above: Order Comment: SEND COPY TO BIBIANA RAMIREZ Performed By: #### L 501.9520, L500.4100, L100.0100 ####[facility] [address] [place], [address] Basophils/100 WBC (Bld) 0.5 % Normal 0-1 [facility] Comment on above: Order Comment: SEND COPY TO BIBIANA RAMIREZ Performed By: #### L 501.9520, L500.4100, L100.0100 ####[facility] [address] [place], [address] Eosinophils/100 WBC (Bld) 1.5 % Normal 0-5 [facility] Comment on above: Order Comment: SEND COPY TO BIBIANA RAMIREZ Performed By: #### L 501.9520, L500.4100, L100.0100 ####[facility] [address] [place], [address] Erythrocyte distribution width (RBC) [Ratio] 12.7 % Normal 11.6-14.6 [facility] Comment on above: Order Comment: SEND COPY TO BIBIANA RAMIREZ Performed By: #### L 501.9520, L500.4100, L100.0100 ####[facility] [address] [place], [address] Hematocrit (Bld) [Volume fraction] 39.3 % Normal 37-47 [facility] Comment on above: Order Comment: SEND COPY TO BIBIANA RAMIREZ Performed By: #### L 501.9520, L500.4100, L100.0100 ####[facility] [address] [place], [address] Hemoglobin (Bld) [Mass/Vol] 13.0 g/dL Normal 12.0-15.0 [facility] Comment on above: Order Comment: SEND COPY TO BIBIANA RAMIREZ Performed By: #### L 501.9520, L500.4100, L100.0100 ####[facility] [address] [place], [address] IG% 0.400 Normal 0.0-0.9 [facility] Comment on above: Order Comment: SEND COPY TO BIBIANA RAMIREZ Result Comment: IG% - Immature Granulocytes (promyelocytes, myelocytes and metamyelocytes) > 1% indicates that a LEFT SHIFT is Present. Performed By: #### L 501.9520, L500.4100, L100.0100 ####[facility] [address] [place], [address] Lymphocytes/100 WBC (Bld) 13.0 % Low 19-41 [facility] Comment on above: Order Comment: SEND COPY TO BIBIANA RAMIREZ Performed By: #### L 501.9520, L500.4100, L100.0100 ####[facility] [address] [place], [address] MCH (RBC) [Entitic mass] 29.5 pg Normal 27.0-32.0 [facility] Comment on above: Order Comment: SEND COPY TO BIBIANA RAMIREZ Performed By: #### L 501.9520, L500.4100, L100.0100 ####[facility] [address] [place], [address] MCHC (RBC) [Mass/Vol] 33.1 g/dL Normal 32-36 [facility] Comment on above: Order Comment: SEND COPY TO BIBIANA RAMIREZ Performed By: #### L 501.9520, L500.4100, L100.0100 ####[facility] [address] [place], [address] MCV (RBC) [Entitic vol] 89.3 fL Normal 81-99 [facility] Comment on above: Order Comment: SEND COPY TO BIBIANA RAMIREZ Performed By: #### L 501.9520, L500.4100, L100.0100 ####[facility] [address] [place], [address] Monocytes/100 WBC (Bld) 6.4 % Normal 0-10 [facility] Comment on above: Order Comment: SEND COPY TO BIBIANA RAMIREZ Performed By: #### L 501.9520, L500.4100, L100.0100 ####[facility] [address] [place], [address] Neutrophils/100 WBC (Bld) 78.2 % High 47-70 [facility] Comment on above: Order Comment: SEND COPY TO BIBIANA RAMIREZ Performed By: #### L 501.9520, L500.4100, L100.0100 ####[facility] [address] [place], [address] Nucleated RBC (Bld) [#/Vol] 0 10*3/uL Normal 0-5 [facility] Comment on above: Order Comment: SEND COPY TO BIBIANA RAMIREZ Performed By: #### L 501.9520, L500.4100, L100.0100 ####[facility] [address] [place], [address] Platelet mean volume (Bld) [Entitic vol] 11.0 fL Normal 6.2-12.0 [facility] Comment on above: Order Comment: SEND COPY TO BIBIANA RAIMREZ Performed By: #### L 501.9520, L500.4100, L100.0100 ####[facility] [address] [place], [address] Platelets (Bld) [#/Vol] 266 10*3/uL Normal 150-450 [facility] Comment on above: Order Comment: SEND COPY TO BIBIANA RAMIREZ Performed By: #### L 501.9520, L500.4100, L100.0100 ####[facility] [address] [place], [address] RBC (Bld) [#/Vol] 4.40 10*6/uL Normal 4.2-5.4 [facility] Comment on above: Order Comment: SEND COPY TO BIBIANA RAMIREZ Performed By: #### L 501.9520, L500.4100, L100.0100 ####[facility] [address] [place], [address] RDW SD 41.5 fl Normal 35.1-43.9 [facility] Comment on above: Order Comment: SEND COPY TO BIBIANA RAMIREZ Performed By: #### L 501.9520, L500.4100, L100.0100 ####[facility] [address] [place], [address] WBC (Bld) [#/Vol] 11.0 10*3/uL Normal 4.4-11.0 [facility] Comment on above: Order Comment: SEND COPY TO BIBIANA RAMIREZ Performed By: #### L 501.9520, L500.4100, L100.0100 ####[facility] [address] [place], [address] Calculated very low density lipoprotein (VLDL) cholesterol measurementOrdered By: Edilberto Loza on 07-08-2025 Calculated very low density lipoprotein (VLDL) cholesterol measurement 14 mg/dL 5-40 [facility] Carbon dioxide, total [Moles /volume] in Central venous bloodon 07-08-2025 CO2 [Moles/Vol] 22.5 mmol/L 21.0-32.0 [facility] Chloride assayon 07-08-2025 Chloride [Moles/Vol] 100 mmol/L 98-108 [facility] Comprehensive Metabolic Prof ilon 07-08-2025 Albumin [Mass/Vol] 4.4 g/dL Normal 3.4-4.8 [facility] Comment on above: Order Comment: MARLO Olivier SEND CMP TO DR. LOZA Performed By: #### L 501.5200, L503.0106, L503.6550, L503.6150, L500.4050, L3300.9900, L506.0200 ####[facility] [address] [place], [address] Albumin/Globulin [Mass ratio] 1.3 {ratio} Normal 0.9-2.4 [facility] Comment on above: Order Comment: MARLO Olivier SEND CMP TO DR. LOZA Performed By: #### L 501.5200, L503.0106, L503.6550, L503.6150, L500.4050, L3300.9900, L506.0200 ####[facility] [address] [place], [address] ALK PHOS 80 U/L Normal 35-104 [facility] Comment on above: Order Comment: MARLO Olivier SEND CMP TO DR. LOZA Performed By: #### L 501.5200, L503.0106, L503.6550, L503.6150, L500.4050, L3300.9900, L506.0200 ####[facility] [address] [place], [address] ALT [Catalytic activity/Vol] 66 U/L High <=34 [facility] Comment on above: Order Comment: MARLO Olivier SEND CMP TO DR. LOZA Performed By: #### L 501.5200, L503.0106, L503.6550, L503.6150, L500.4050, L3300.9900, L506.0200 ####[facility] [address] [place], [address] AST [Catalytic activity/Vol] 42 U/L High <=31 [facility] Comment on above: Order Comment: MARLO Olivier SEND CMP TO DR. LOZA Performed By: #### L 501.5200, L503.0106, L503.6550, L503.6150, L500.4050, L3300.9900, L506.0200 ####[facility] [address] [place], [address] Bilirubin [Mass/Vol] 0.48 mg/dL Normal 0.00-1.30 [facility] Comment on above: Order Comment: MARLO Olivier SEND CMP TO DR. LOZA Performed By: #### L 501.5200, L503.0106, L503.6550, L503.6150, L500.4050, L3300.9900, L506.0200 ####[facility] [address] [place], [address] BUN/CRE 21.2 RATIO High 10-20 [facility] Comment on above: Order Comment: MARLO Olivier SEND CMP TO DR. LOZA Performed By: #### L 501.5200, L503.0106, L503.6550, L503.6150, L500.4050, L3300.9900, L506.0200 ####[facility] [address] [place], [address] Calcium [Mass/Vol] 9.3 mg/dL Normal 7.6-11.0 [facility] Comment on above: Order Comment: MARLO Olivier SEND CMP TO DR. LOZA Performed By: #### L 501.5200, L503.0106, L503.6550, L503.6150, L500.4050, L3300.9900, L506.0200 ####[facility] [address] [place], [address] Chloride [Moles/Vol] 100 mmol/L Normal 98-108 [facility] Comment on above: Order Comment: MARLO Olivier SEND CMP TO DR. LOZA Performed By: #### L 501.5200, L503.0106, L503.6550, L503.6150, L500.4050, L3300.9900, L506.0200 ####[facility] [address] [place], [place], [phone]([phone] CO2 [Moles/Vol] 22.5 mmol/L Normal 21.0-32.0 [facility] Comment on above: Order Comment: MARLO Olivier SEND CMP TO DR. LOZA Performed By: #### L 501.5200, L503.0106, L503.6550, L503.6150, L500.4050, L3300.9900, L506.0200 ####[facility] [address] [place], [place], [phone]) Creatinine [Mass/Vol] 0.71 mg/dL Normal 0.70-1.20 [facility] Comment on above: Order Comment: MARLO Olivier SEND CMP TO DR. LOZA Performed By: #### L 501.5200, L503.0106, L503.6550, L503.6150, L500.4050, L3300.9900, L506.0200 ####[facility] [address] [place], [place], [phone] GAP 16 High 5-15 [facility] Comment on above: Order Comment: MARLO Olivier SEND CMP TO DR. LOZA Performed By: #### L 501.5200, L503.0106, L503.6550, L503.6150, L500.4050, L3300.9900, L506.0200 ####[facility] [address] [place], [place], [phone](330) GFR/1.73 sq M.predicted among non-blacks MDRD (S/P/Bld) [Vol rate/Area] 96 mL/min/{1.73_m2} Normal >60 [facility] Comment on above: Order Comment: MARLO Olivier SEND CMP TO DR. LOZA Result Comment: mL/m in/1.73m2 CKD-EPI Creatinine Equation (2020) Performed By: #### L 501.5200, L503.0106, L503.6550, L503.6150, L500.4050, L3300.9900, L506.0200 ####[facility] [address] [place], [address] Globulin (S) [Mass/Vol] 3.3 g/dL Normal 2.2-4.2 [facility] Comment on above: Order Comment: MARLO Olivier SEND CMP TO DR. LOZA Performed By: #### L 501.5200, L503.0106, L503.6550, L503.6150, L500.4050, L3300.9900, L506.0200 ####[facility] [address] [place], [address] Glucose [Mass/Vol] 82 mg/dL Normal 70-99 [facility] Comment on above: Order Comment: MARLO Olivier SEND CMP TO DR. LOZA Performed By: #### L 501.5200, L503.0106, L503.6550, L503.6150, L500.4050, L3300.9900, L506.0200 ####[facility] [address] [place], [address] Potassium [Moles/Vol] 3.7 mmol/L Normal 3.3-5.1 [facility] Comment on above: Order Comment: MARLO Olivier SEND CMP TO DR. LOZA Performed By: #### L 501.5200, L503.0106, L503.6550, L503.6150, L500.4050, L3300.9900, L506.0200 ####[facility] [address] [place], [address] Sodium [Moles/Vol] 138 mmol/L Normal 133-145 [facility] Comment on above: Order Comment: MARLO Olivier SEND CMP TO DR. LOZA Performed By: #### L 501.5200, L503.0106, L503.6550, L503.6150, L500.4050, L3300.9900, L506.0200 ####[facility] [address] [place], [place], [phone] T PROT 7.7 g/dL Normal 5.9-8.4 [facility] Comment on above: Order Comment: MARLO Olivier SEND CMP TO DR. LOZA Performed By: #### L 501.5200, L503.0106, L503.6550, L503.6150, L500.4050, L3300.9900, L506.0200 ####[facility] [address] [facility] [address] [place], [place], [phone] Urea nitrogen [Mass/Vol] 15 mg/dL Normal 4-19 [facility] Comment on above: Order Comment: MARLO Olivier SEND CMP TO DR. LOZA Performed By: #### L 501.5200, L503.0106, L503.6550, L503.6150, L500.4050, L3300.9900, L506.0200 ####[facility] [address] [facility] [place], [place], [phone] Eosinophil percentageOrdered By: Edilberto Loza on 07-08-2025 Eosinophils/100 WBC (Bld) 1.5 % 0-5 [facility] Erythrocyte distribution wid th ratioOrdered By: Edilberto Loza on 07-08-2025 Erythrocyte distribution width (RBC) [Ratio] 12.7 % 11.6-14.6 [facility] Erythrocyte distribution wid th standard deviationOrdered By: Edilberto Loza on 07-08-2025 Erythrocyte distribution width (RBC) [Ratio] 41.5 fl 35.1-43.9 [facility] Ferritinon 07-08-2025 Ferritin [Mass/Vol] 189 ng/mL Normal 22-378 [facility] Comment on above: Order Comment: MARLO Olivier SEND CMP TO DR. LOZA Performed By: #### L 501.5200, L503.0106, L503.6550, L503.6150, L500.4050, L3300.9900, L506.0200 ####[facility] [address] [facility] [place], [place], [phone] Folate [Mass/volume] in Seru m or Plasmaon 07-08-2025 Folate [Mass/Vol] 33.70 ng/mL 4.60-34.80 [facility] Folates,Serum (Folic Acid)on 07-08-2025 FOLATES,SERUM 33.70 ng/mL Normal 4.60-34.80 [facility] Comment on above: Order Comment: MARLO Olivier SEND CMP TO DR. DODD Performed By: #### L 501.5200, L503.0106, L503.6550, L503.6150, L500.4050, L3300.9900, L506.0200 ####[facility] [address] [place], [place], [phone] Glomerular filtration rate ( GFR) estimation/1.73 sq m using serum, plasma, or whole bon 07-08-2025 GFR/1.73 sq M.predicted among non-blacks MDRD (S/P/Bld) [Vol rate/Area] 96 mL/min/{1.73_m2} >60 [facility] Comment on above: mL/min/1.73m2 CKD-EP I Creatinine Equation (2020) Hematocrit Auto (Bld) [Volum e fraction]Ordered By: Edilberto Loza on 07-08-2025 Hematocrit (Bld) [Volume fraction] 39.3 % 37-47 [facility] Hemoglobin measurementOrdere d By: Edilberto Loza on 07-08-2025 Hemoglobin (Bld) [Mass/Vol] 13.0 g/dL 12.0-15.0 [facility] Immature granulocytes/100 WB C Auto (Bld)Ordered By: Edilberto Loza on 07-08-2025 Immature granulocytes/100 WBC (Bld) 0.400 % 0.0-0.9 [facility] Comment on above: IG% - Immature Granu locytes (promyelocytes, myelocytes and metamyelocytes) > 1% indicates that a LEFT SHIFT is Present. Ironon 07-08-2025 Iron [Mass/Vol] 41 ug/dL Low 50-170 [facility] Comment on above: Order Comment: MARLO Olivier SEND CMP TO DR. LOZA Performed By: #### L 501.5200, L503.0106, L503.6550, L503.6150, L500.4050, L3300.9900, L506.0200 ####[facility] [address] [place], [address] Iron measurement (mass/mass) on 07-08-2025 Iron (Unsp spec) [Mass/Mass] 41 ug/dL Low 50-170 [facility] LDL calc ser/plasOrdered By: Edilberto Loza on 07-08-2025 Cholesterol in LDL [Mass/Vol] 112 mg/dL [facility] Comment on above: Knqptejcgm=664-571 m g/dL & Higher Jkgn=958 mg/dL or greaterFriedwald Equation for LDL-C Laboratory - Chemistry and C hemistry - challengeon 07-08-2025 AST [Catalytic activity/Vol] 42 U/L High <32 [facility] Lipid Profileon 07-08-2025 CHOL:HDL 3.09 Normal [facility] Comment on above: Performed By: #### L 501.9520, L500.4100, L100.0100 ####[facility] [address] [place], [address] Cholesterol [Mass/Vol] 185 mg/dL Normal <=200 [facility] Comment on above: Result Comment: Chol esterol level, Desirable <200 mg/dL Borderline high cholesterol 200-239 mg/dL High cholesterol >=240 mg/dL Recommendations of the NCEP Adult Treatment Panel for the following risk-cutoff thresholds for the [place] population. Performed By: #### L 501.9520, L500.4100, L100.0100 ####[facility] [address] [place], [address] Cholesterol in HDL [Mass/Vol] 60 mg/dL Normal [facility] Comment on above: Result Comment: Maddy onal Cholesterol Education Program (NCEP) guidelines: <40 mg/dL: Low HDL-cholesterol (major risk factor for CHD) >= 60 mg/dL: High HDL-cholesterol (negative risk factor for CHD) HDL-cholesterol is affected by a number of factors, e.g. smoking, exercise, hormones, sex and age. Performed By: #### L 501.9520, L500.4100, L100.0100 ####[facility] [address] [place], [address] Cholesterol in LDL [Mass/Vol] 112 mg/dL Normal [facility] Comment on above: Result Comment: Bord wherjl=163-911 mg/dL Higher Vicq=765 mg/dL or greater Friedwald Equation for LDL-C Performed By: #### L 501.9520, L500.4100, L100.0100 ####[facility] [address] [place], [address] Cholesterol in VLDL [Mass/Vol] 14 mg/dL Normal 5-40 [facility] Comment on above: Performed By: #### L 501.9520, L500.4100, L100.0100 ####[facility] [address] [place], [address] Triglyceride [Mass/Vol] 68 mg/dL Normal [facility] Comment on above: Result Comment: The drugs N-Acetylcysteine and Metamizole may falsely depress this assay. Normal range: <150 mg/dL Borderline High: 150-199 mg/dL High: 200-499 mg/dL Very High: >500 mg/dL Performed By: #### L 501.9520, L500.4100, L100.0100 ####[facility] [address] [place], [address] MCV (mean corpuscular volume ) determinationOrdered By: Edilberto Loza on 07-08-2025 MCV (RBC) [Entitic vol] 89.3 fL 81-99 [facility] Magnesiumon 07-08-2025 Magnesium [Mass/Vol] 1.9 mg/dL Normal 1.5-2.2 [facility] Comment on above: Order Comment: MARLO Olivier SEND CMP TO DR. LOZA Performed By: #### L 501.5200, L503.0106, L503.6550, L503.6150, L500.4050, L3300.9900, L506.0200 ####[facility] [address] [place], [address] Magnesium measurement (mass/ volume)on 07-08-2025 Magnesium (Unsp spec) [Mass/Vol] 1.9 mg/dL 1.5-2.2 [facility] Mean corpuscular hemoglobin (MCH) determinationOrdered By: Edilberto Loza on 07-08-2025 MCH (RBC) [Entitic mass] 29.5 pg 27.0-32.0 [facility] Mean corpuscular hemoglobin concentration (MCHC) determinationOrdered By: Edilberto Loza on 07-08-2025 MCHC (RBC) [Mass/Vol] 33.1 g/dL 32-36 [facility] Mean platelet volume determi nationOrdered By: Edilberto Loza on 07-08-2025 Platelet mean volume (Bld) [Entitic vol] 11.0 fL 6.2-12.0 [facility] Monocyte percentageOrdered B y: Edilberto Loza on 07-08-2025 Monocytes/100 WBC (Bld) 6.4 % 0-10 [facility] Neutrophil percentageOrdered By: Edilberto Loza on 07-08-2025 Neutrophils/100 WBC (Bld) 78.2 % High 47-70 [facility] Nucleated red blood cell per centageOrdered By: Edilberto Loza on 07-08-2025 Nucleated RBC/100 WBC (Bld) [Ratio] 0 % 0-5 [facility] Platelet countOrdered By: Ricardo Loza on 07-08-2025 Platelets (Bld) [#/Vol] 266 10*3/uL 150-450 [facility] Potassium measurement (mass/ volume)on 07-08-2025 Potassium (Unsp spec) [Mass/Vol] 3.7 mmol/L 3.3-5.1 [facility] RBC Auto (Bld) [#/Vol]Ordere d By: Edilberto Loza on 07-08-2025 RBC (Bld) [#/Vol] 4.40 10*6/uL 4.2-5.4 [facility] Screening total cholesterol/ high density lipoprotein (HDL) cholesterol ratioOrdered By: Edilberto Loza on 07-08-2025 Cholesterol.total/Chol esterol in HDL [Mass ratio] 3.09 {ratio} [facility] Serum creatinine measurement (mass/volume)on 07-08-2025 Creatinine [Mass/Vol] 0.71 mg/dL 0.70-1.20 [facility] Serum globulin measurementon 07-08-2025 Globulin (S) [Mass/Vol] 3.3 g/dL 2.2-4.2 [facility] Serum glucose measurement (m ass/volume)on 07-08-2025 Glucose [Mass/Vol] 82 mg/dL 70-99 [facility] Serum or plasma alanine fisher otransferase (ALT) measurementon 07-08-2025 ALT [Catalytic activity/Vol] 66 U/L High <35 [facility] Serum or plasma albumin milena urement (mass/volume)on 07-08-2025 Albumin [Mass/Vol] 4.4 g/dL 3.4-4.8 [facility] Serum or plasma albumin/glob ulin mass ratioon 07-08-2025 Albumin/Globulin [Mass ratio] 1.3 {ratio} 0.9-2.4 [facility] Serum or plasma alkaline tana sphatase measurementon 07-08-2025 ALP [Catalytic activity/Vol] 80 U/L 35-104 [facility] Serum or plasma calcium milena urement (mass/volume)on 07-08-2025 Calcium [Mass/Vol] 9.3 mg/dL 7.6-11.0 [facility] Serum or plasma cholesterol in HDL measurement (mass/volume)Ordered By: Edilberto Loza on 07-08-2025 Cholesterol in HDL [Mass/Vol] 60 mg/dL >40 [facility] Comment on above: National Cholesterol Education Program (NCEP) guidelines:<40 mg/dL: Low HDL-cholesterol (major risk factor for CHD)>= 60 mg/dL: High HDL-cholesterol (negative risk factor for CHD)HDL-cholesterol is affected by a number of factors, e.g. smoking, exercise, hormones, sex and age. Serum or plasma cholesterol measurement (mass/volume)Ordered By: Edilberto Loza on 07-08-2025 Cholesterol [Mass/Vol] 185 mg/dL <201 [facility] Comment on above: Cholesterol level, D esirable <200 mg/dLBorderline high cholesterol 200-239 mg/dLHigh cholesterol >=240 mg/dLRecommendations of the NCEP Adult Treatment Panel for the following risk-cutoff thresholds for the [place] population. Serum or plasma ferritin craig surement (mass/volume)on 07-08-2025 Ferritin [Mass/Vol] 189 ng/mL 22-378 [facility] Serum or plasma urea nitroge n measurement (mass/volume)on 07-08-2025 Urea nitrogen [Mass/Vol] 15 mg/dL 4-19 [facility] Serum or plasma zinc measure ment (mass/volume)on 07-08-2025 Zinc [Mass/Vol] 79 ug/dL 44-115 [facility] Comment on above: Detection Limit = 5P erformed at: BN - [facility] [address] [id number] Director: Lou Leung MD, Phone: [phone] Sodium levelon 07-08-2025 Sodium [Moles/Vol] 138 mmol/L 133-145 [facility] TSH DL <= 0.005 mIU/L QnOrde red By: Edilberto Loza on 07-08-2025 TSH Qn 3.310 uIU/mL 0.300-4.20 0 [facility] Thyroid Stim Hormone (TSH)on 07-08-2025 TSH 3.310 uIU/mL Normal 0.300-4.20 0 [facility] Comment on above: Performed By: #### L 107.8356, L557.8583, L100.5315 ####[facility] [address] [place], [address] Total proteinon 07-08-2025 Protein [Mass/Vol] 7.7 g/dL 5.9-8.4 [facility] Triglycerides measurementOrd ered By: Edilberto Loza on 07-08-2025 Triglyceride [Mass/Vol] 68 mg/dL <199 [facility] Comment on above: The drugs N-Acetylcy steine and Metamizole may falsely depress this assay. Normal range: <150 mg/dLBorderline High: 150-199 mg/dLHigh: 200-499 mg/dLVery High: >500 mg/dL Vitamin B12on 07-08-2025 Cobalamin (Vitamin B12) [Mass/Vol] 1798 pg/mL High 180-914 [facility] Comment on above: Order Comment: MARLO Olivier SEND CMP TO DR. LOZA Performed By: #### L 501.5200, L503.0106, L503.6550, L503.6150, L500.4050, L3300.9900, L506.0200 ####[facility] [address] [place], [place], [address] Vitamin B12 ser/plason 07-08 Cobalamin (Vitamin B12) [Mass/Vol] 1798 pg/mL High 180-914 [facility] White blood cell (WBC) count Ordered By: Edilberto Loza on 07-08-2025 WBC (Bld) [#/Vol] 11.0 10*3/uL 4.4-11.0 [facility] 36on 07-06-2025 36 06/30/25 LRYGB W/ HH MP Last OV-yesterday w MP, next 08/02/25 w MP Incoming call from female that states she is calling for pt. States pt was in yesterday for one week POP and forgot to ask when she is able to drive. Female indicated that can respond to pt via mychart or call the caller back. Unable to call, as no contact info left. Will send mychart to pt that she is able to drive now as long as she is can do so without pain and is no longer taking narcotics. Normal [facility] Office Visiton 07-05-2025 Follow-up visit [id number] González Oneill 1965 F Date Provider Department Center 07/05/2025 [id number] SANTIAGO [facility] None Family History Problem Relation Age of Onset Obesity Mother Diabetes Mother High Blood Pressure Mother Obesity Father Diabetes Father High Blood Pressure Father Heart disease Father Stroke Father Heart disease Sister Obesity Sister Heart disease Brother High Blood Pressure Brother Family Status - Relation Status Age at Mother Alive Father Sister Alive Brother Alive Level of Service:49769 OR POSTOP FOLLOW UP VISIT RELATED TO ORIGINAL PX Reason for Visit and Comments: Bariatrics Post Op Follow-up [884] - 1wk [facility] Progress Noteon 07-05-2025 Progress Note HPI, PHYSICAL EXAMIN ATION & PLAN POST-OP HPI: Patient here today for 1 week post-weight loss surgery follow up Visit Diagnoses: 1. H/O gastric bypass 2. Deficiency of multiple nutrient elements 3. Deficiency of other specified B group vitamins 4. Morbid obesity with BMI of 40.0-44.9, adult ([facility]) 5. Gastroesophageal reflux disease without esophagitis HPI: The patient is feeling good. Denies nausea, vomiting, dysphagia, or any GERD Sx. Patient is currently taking a PPI and will continue until the 6 month visit. Patient is currently up and walking hourly as instructed. Patient was instructed: no lifting heavier than 15 lbs or submerging into water until 1 month office visit. The first beater is to discuss and start supplements. Patient is currently up hourly walking. BSTOP Pain Scale today: 4 How many pain medications have been used since surgery: 8 Has the patent been using Tylenol and/or Ice: tylenol, no ice. Review of Systems Constitutional: Negative. HENT: Negative. Respiratory: Negative. Cardiovascular: Negative. Gastrointestinal: Negative. Genitourinary: Negative. Musculoskeletal: Negative. Neurological: Negative. Psychiatric/Behavioral: Negative. All other systems reviewed and are negative. Vital signs are stable. Labs were not drawn. Physical Examination: BP 119/73 Pulse 86 Temp 36.2 ?C (97.1 ?F) Ht 5' 5 (1.651 m) Wt 246 lb 9.6 oz (112 kg) Comment: bcc SpO2 98% BMI 41.04 kg/m? Physical exam: General: Awake, alert Lungs: Good inspiratory effort Hearts: Regular Abdomen: Mild bruising of wounds, steri strips in place LE: No edema, no calf pain Surgical site: is:clean, dry, intact, and nontender Drainage from surgical site: none Patient does NOT have a superficial incisional SSI Plan: Orders Placed This Encounter Procedures Zinc These orders are set for an approximate date - they can be drawn up to 3 months prior to the Expected Date on this Req. Please send results to: MD Saurabh CORTES [address] [place] [address] [facility] [phone] - [phone] And if not done at a [facility] Facility, please send to: [place] [phone] Patient Name: Jaime Oneill - 1965 Order Created by : Doreen Neely MA Standing Status: Future Number of Occurrences: 1 Expected Date: 07/14/2025 Expiration Date: 06/30/2026 Folate These orders are set for an approximate date - they can be drawn up to 3 months prior to the Expected Date on this Req. Please send results to: MD Saurabh CORTES [address] [place] [address] [facility] [phone] - [phone] And if not done at a [facility] Facility, please send to: [place] [address] Patient Name: Jaime Wiley 1965 Order Created by : Doreen Neely MA Standing Status: Future Number of Occurrences: 1 Expected Date: 07/14/2025 Expiration Date: 06/30/2026 Iron These orders are set for an approximate date - they can be drawn up to 3 months prior to the Expected Date on this Req. Please send results to: MD Saurabh CORTES [address] [place] [address] [facility] [address] - [phone] And if not done at a [facility] Facility, please send to: [place] [address] Patient Name: Jaime Wiley 1965 Order Created by : Doreen Neely MA Standing Status: Future Number of Occurrences: 1 Expected Date: 07/14/2025 Expiration Date: 06/30/2026 Ferritin These orders are set for an approximate date - they can be drawn up to 3 months prior to the Expected Date on this Req. Please send results to: KELL LOZA MD - [address] [place] [address] [facility] [address] - [phone] And if not done at a [facility], please send to: [facility] - [address] [place] [address] Patient Name: Jaime Oneill - 1965 Order Created by : Doreen Neely MA Standing Status: Future Number of Occurrences: 1 Expected Date: 07/14/2025 Expiration Date: 06/30/2026 Magnesium These orders are set for an approximate date - they can be drawn up to 3 months prior to the Expected Date on this Req. Please send results to: KELL LOZA MD - [address] [facility] [address] [facility] [phone] - [phone] And if not done at a [facility] Facility, please send to: [place] [address] Patient Name: Jaime Oneill - 1965 Order Created by : Doreen Neely MA Standing Status: Future Number of Occurrences: 1 Expected Date: 07/14/2025 Expiration Date: 06/30/2026 Vitamin B12 These orders are set for an approximate date - they can be (more content not included)... Normal [facility] Progress Note [facility] 1 WEEK VISIT POST-OPERATIVE DIETITIAN Date: 07/05/25 Surgeon: Dr. Santiago Current Medications: has a current medication list which includes the following prescription(s): citalopram, levothyroxine, ondansetron odt, oxycodone, pantoprazole, b complex-c, biotin, black cohosh, calcium carbonate, and multiple vitamins-minerals. Patient's weight decreased by: -3 lbs since last visit Patient reporting: symptoms: Other gas Patient?s portions: Discussed. are adequate for current diet: 1/4 cup (2 oz) Patient does consume 3 small meals daily. Patient reported portion size of approximately: ? cup (2oz) Protein requirements: Discussed. Fluid requirements discussed. Current Fluid Intake: 48-64 oz Patient only drinks sugar-free, caffeine-free and carbonation-free fluids Yes Patient waits 30 minutes after meals to drink Yes Exercise activities: Discussed. Patient does plan to exercise when cleared. She was reminded that regular exercise is critical part of a successful outcome following weight loss surgery. Walking Behavioral/Emotional changes: Reviewed. Patient does feel comfortable with changes in eating behaviors and associated emotional changes. She was reminded that psychological counseling is available through [facility] post-[facility]. Vitamin supplementation: Discussed with patient. She will start the following vitamin supplements today: Calcium Citrate tid, MultiVitamin with Iron, Vitamin B12, Vitamin B1, Vitamin D3, and Biotin Recent Nutrient Concerns and Vitamin Supplementation Changes: has some gas, pt will start vitamin regimen today Notes/Comments: Current diet reviewed. Patient to start puree diet for 10 days then soft diet up until the patient's 1 month office visit. Informed patient of new goal to increase to 5-6 small meals daily: Handouts provided. No coffee until further notice Patient encouraged to call or Mychart with any questions or concerns. Visited completed by: Katlyn Bradford MS, RDN, LD Normal [facility] 36on 07-02-2025 36 Attempted to call maura palmer for follow up to inpatient hospital stay. Left voice mail with my direct number and request for return call. Normal [facility] BASIC METABOLIC PANELon 06-12 Anion gap [Moles/Vol] 6 mmol/L Normal 3-13 [facility] Comment on above: Performed By: #### L AB15 ####Flat Drier: ELMA ROQUE ([id number])[facility] ([address] Calcium [Mass/Vol] 8.6 mg/dL Low 8.8-10.0 [facility] Comment on above: Performed By: #### L AB15 ####Flat Drier: ELMA ROQUE ([id number])[facility] ([facility])[address] [place] [address] [place] Chloride [Moles/Vol] 104 mmol/L Normal 98-107 [facility] Comment on above: Performed By: #### L AB15 ####Flat Drier: ELMA ROQUE ([id number])[facility])[address] [place] [address] CO2 [Moles/Vol] 23 mmol/L Normal 23-31 [facility] Comment on above: Performed By: #### L AB15 ####Flat Drier: ELMA ROQUE ([id number])[facility])[address] [place] [address] Creatinine [Mass/Vol] 0.71 mg/dL Normal 0.57-1.11 [facility] Comment on above: Performed By: #### L AB15 ####Flat Drier: ELMA ROQUE ([id number])[facility])[address] [place] [address] GLOMERULAR FILTRATION RATE ML/MIN/1.73 SQ M.PREDICTED >90.0 Normal >60.0 [facility] Comment on above: Result Comment: Calc ulation based on the Chronic Kidney Disease Epidemiology Collaboration (CKD-EPI) equation refit without adjustment for race Performed By: #### L AB15 ####Flat Drier: ELMA ROQUE ([id number])[facility])[address] [place] [address] [place] Glucose [Mass/Vol] 154 mg/dL High 82-115 [facility] Comment on above: Performed By: #### L AB15 ####Flat Drier: ELMA ROQUE ([id number])[facility])[address] [place] [address] [place] Potassium [Moles/Vol] 4.0 mmol/L Normal 3.5-5.1 [facility] Comment on above: Result Comment: [facility] potassium values may be up to 0.5 mmol/L lower than serum values. Performed By: #### L AB15 ####Flat Drier: ELMA ROQUE ([id number])[facility])[address] [place] [address] Sodium [Moles/Vol] 133 mmol/L Low 136-145 [facility] Comment on above: Performed By: #### L AB15 ####Flat Drier: ELMA ROQUE ([id number])[facility] ([facility])[address] [place] [address] Urea nitrogen [Mass/Vol] 20 mg/dL Normal 9-23 [facility] Comment on above: Performed By: #### L AB15 ####Flat Drier: ELMA ROQUE ([id number])[facility] ([facility])[address] [place] [address] Basic metabolic 1998 panelon 07-01-2025 Anion gap [Moles/Vol] 6 mmol/L 3 - 13 mmol/L [facility] Calcium [Mass/Vol] 8.6 mg/dL Low 8.8 - 10. 0 mg/dL [facility] Chloride [Moles/Vol] 104 mmol/L 98 - 10 7 mmol/L [facility] CO2 [Moles/Vol] 23 mmol/L 23 - 31 mmol/L [facility] Creatinine [Mass/Vol] 0.71 mg/dL 0.57 - 1.11 mg/dL [facility] GFR/1.73 sq M.predicted (S/P/Bld) [Vol rate/Area] - PINF [facility] Comment on above: Calculation based on the Chronic Kidney Disease Epidemiology Collaboration (CKD-EPI) equation refit without adjustment for race Glucose [Mass/Vol] 154 mg/dL High 82 - 115 mg/dL [facility] Interpretation and review of laboratory results Abnormal [facility] Potassium [Moles/Vol] 4 mmol/L 3.5 - 5.1 mmol/L [facility] Comment on above: Plasma potassium adri ues may be up to 0.5 mmol/L lower than serum values. Sodium [Moles/Vol] 133 mmol/L Low 136 - 145 mmol/L [facility] Urea nitrogen [Mass/Vol] 20 mg/dL 9 - 23 mg/dL [facility] CBC (HEMOGRAM)on 07-01-2025 Erythrocyte distribution width (RBC) [Ratio] 13.1 % Normal 11.5-15.0 [facility] Comment on above: Performed By: #### L [id number] ####Flat Drier: ELMA ROQUE ([id number])[address] Hematocrit (Bld) [Volume fraction] 36.8 % Normal 35.0-47.0 [facility] Comment on above: Performed By: #### L AB294 ####Flat Drier: ELMA ROQUE ([id number])[address] Hemoglobin (Bld) [Mass/Vol] 12.0 g/dL Normal 11.7-16.0 [facility] Comment on above: Performed By: #### L AB294 ####Flat Drier: ELMA ROQUE ([id number])[address] MCH (RBC) [Entitic mass] 29.6 pg Normal 26.0-34.0 [facility] Comment on above: Performed By: #### L AB294 ####Flat Drier: ELMA ROQUE ([id number])[facility])[address] [place] [address] MCHC 32.6 % Normal 30.5-36.0 [facility] Comment on above: Performed By: #### L AB294 ####Flat Drier: ELMA ROQUE ([id number])[address] MCV (RBC) [Entitic vol] 90.6 fL Normal 77.0-99.0 [facility] Comment on above: Performed By: #### L AB294 ####Flat Drier: ELMA ROQUE ([id number])[address] Platelet mean volume (Bld) [Entitic vol] 10.9 fL Normal 9.0-12.7 [facility] Comment on above: Performed By: #### L AB294 ####Flat Drier: ELMA [id number])[facility] ([facility])[address] [place] [address] Platelets (Bld) [#/Vol] 245 10*3/uL Normal 140-440 [facility] Comment on above: Performed By: #### L AB294 ####Flat Drier: ELMA ROQUE ([id number])[facility])[address] [place] [address] RBC (Bld) [#/Vol] 4.06 10*6/uL Normal 3.80-5.20 [facility] Comment on above: Performed By: #### L AB294 ####Flat Drier: ELMA ROQUE ([id number])[facility])[address] [place] [address] WBC (Bld) [#/Vol] 10.7 10*3/uL Normal 3.6-10.7 [facility] Comment on above: Performed By: #### L AB294 ####Flat Drier: ELMA ROQUE ([id number])[facility])[address] [place] [address] CBC panel Auto (Bld)on 07-01 Erythrocyte distribution width (RBC) [Ratio] 13.1 % 11.5 - 15.0 % [facility] Hematocrit (Bld) [Volume fraction] 36.8 % 35.0 - 47.0 % [facility] Hemoglobin (Bld) [Mass/Vol] 12 g/dL 11.7 - 16.0 g/dL [facility] Interpretation and review of laboratory results Normal [facility] MCH (RBC) [Entitic mass] 29.6 pg 26.0 - 34.0 pg [facility] MCHC (RBC) [Mass/Vol] 32.6 % 30.5 - 36.0 % [facility] MCV (RBC) [Entitic vol] 90.6 fL 77.0 - 99.0 fL [facility] Platelet mean volume (Bld) [Entitic vol] 10.9 fL 9.0 - 12.7 fL [facility] Platelets (Bld) [#/Vol] 245 10*3/uL 140 - 440 10*3/uL [facility] RBC (Bld) [#/Vol] 4.06 10*6/uL 3.80 - 5.20 10*6/uL [facility] WBC (Bld) [#/Vol] 10.7 10*3/uL 3.6 - 10.7 10*3/uL [facility] Laboratory - Coagulationon 0 07-01-2025 PT Coag (Bld) [Time] 10.5 s 9.0 - 1 2.0 s [facility] PROTHROMBIN TIMEon INR Coag (PPP) [Relative time] 1.0 {INR} Normal 0.9-1.1 [facility] Comment on above: Order Comment: If pa tient on coumadin within 4 days prior. Result Comment: Randy mmended Anticoagulant Therapy: SEE BELOW ----- INR of 2.0 - 3.0 : - Prophylaxis of Venous Thrombosis (high-risk surgery) - Treatment of Venous Thrombosis - Treatment of Pulmonary Embolism (Includes tissue heart valves, Acute Myocardial Infarction to prevent systemic embolism, Valvular Heart Disease, and Atrial Fibrillation) ----- INR of 2.5 - 3.5 : - Mechanical Prosthetic Valves (high risk) - If oral anticoagulant therapy is used to prevent Myocardial Infarction Performed By: #### Lukas AB320 ####Flat Drier: ELMA ROQUE ([id number])[address] PT Coag (PPP) [Time] 10.5 s Normal 9.0-12.0 [facility] Comment on above: Order Comment: If pa tient on coumadin within 4 days prior. Performed By: #### L AB320 ####Flat Drier: ELMA ROQUE ([id number])[facility] ([facility])[address] [place] [address] PT Coag (Bld) [Time]on 07-01 INR Coag (PPP) [Relative time] 1 {INR} 0.9 - 1.1 [facility] Comment on above: Recommended Anticoag ulant Therapy: SEE BELOW ----- INR of 2.0 - 3.0 : - Prophylaxis of Venous Thrombosis (high-risk surgery) - Treatment of Venous Thrombosis - Treatment of Pulmonary Embolism (Includes tissue heart valves, Acute Myocardial Infarction to prevent systemic embolism, Valvular Heart Disease, and Atrial Fibrillation) ----- INR of 2.5 - 3.5 : - Mechanical Prosthetic Valves (high risk) - If oral anticoagulant therapy is used to prevent Myocardial Infarction Interpretation and review of laboratory results Normal [facility] Progress Noteon 07-01-2025 Progress Note Negative Normal [facility] XR Abdomen and RF Gastrointe stinal tract upper W contrast Dane 07-01-2025 No convincing evidence of extravasation or obstruction. Post-op changes consistent with Diana-en-Y gastric bypass surgery. Report Dictated on Electronically Signed By: Nicholas Jolly MD Electronically Signed Date/Time: 07/01/2025 10:35 AM EDT [facility] [employer] Patient Name: JAIME ONEILL : 1965 Exam Date/Time: 07/01/2025 07:35 Procedure: FL UPPER GI WITH KUB Ordering Provider: JONES HEATHER Reason For Exam: s/p diana en y GASTROGRAFIN UPPER GI SERIES CLINICAL INDICATION: S/P Diana-en-Y gastric bypass, postop, day one. Evaluate for leak. TECHNIQUE: Gastrografin was administered per ordering physician request. FLUOROSCOPY DOSE: Ka,r= 111.7 mGy FINDINGS: Preliminary image demonstrates bibasilar atelectasis, presumably postsurgical changes. Gastrografin was administered orally to the patient in the upright position. The esophagus shows no convincing evidence of stricture, mucosal abnormality or extravasation. The gastrojejunostomy is patent with no convincing signs of extravasation or obstruction. The contrast empties readily from the gastric pouch into the jejunum. The jejunal jejunostomy is identified and shows free flow of contrast beyond the metallic clips that identify the anastomosis. There is no convincing evidence of extravasation or obstruction. [facility] Nicholas Jolly MD - 07/01/2025 Patient Name: JAIME ONEILL : 1965 Exam Date/Time: 07/01/2025 07:35 Procedure: FL UPPER GI WITH KUB Ordering Provider: JONES HEATHER Reason For Exam: s/p diana en y GASTROGRAFIN UPPER GI SERIES CLINICAL INDICATION: S/P Diana-en-Y gastric bypass, postop, day one. Evaluate for leak. TECHNIQUE: Gastrografin was administered per ordering physician request. FLUOROSCOPY DOSE: Ka,r= 111.7 mGy FINDINGS: Preliminary image demonstrates bibasilar atelectasis, presumably postsurgical changes. Gastrografin was administered orally to the patient in the upright position. The esophagus shows no convincing evidence of stricture, mucosal abnormality or extravasation. The gastrojejunostomy is patent with no convincing signs of extravasation or obstruction. The contrast empties readily from the gastric pouch into the jejunum. The jejunal jejunostomy is identified and shows free flow of contrast beyond the metallic clips that identify the anastomosis. There is no convincing evidence of extravasation or obstruction. IMPRESSION: No convincing evidence of extravasation or obstruction. Post-op changes consistent with Diana-en-Y gastric bypass surgery. Report Dictated on Electronically Signed By: Nicholas Jolly MD Electronically Signed Date/Time: 07/01/2025 10:35 AM EDT [facility] Rad[facility] (narrative[facility] Gastrointe stinal tract upper W contrast POOrdered By: Nicholas Jolly on 07-01-2025 [facility] [employer] Work Phone: BASIC METABOLIC PANELon 082 Anion gap [Moles/Vol] 14 mmol/L High 3-13 [facility] Comment on above: Performed By: #### L AB15 ####Flat Drier: ELMA ROQUE ([id number])[facility] ([facility])[address] [place] [address] Calcium [Mass/Vol] 8.7 mg/dL Low 8.8-10.0 [facility] Comment on above: Performed By: #### L AB15 ####Flat Drier: ELMA ROQUE ([id number])[facility] ([facility])[address] [place] [address] Chloride [Moles/Vol] 101 mmol/L Normal 98-107 [facility] Comment on above: Performed By: #### L AB15 ####Flat Drier: ELMA ROQUE ([id number])[facility])[address] [place] [address] CO2 [Moles/Vol] 24 mmol/L Normal 23-31 [facility] Comment on above: Performed By: #### L AB15 ####Flat Drier: ELMA ROQUE ([id number])[facility])[address] [place] [address] Creatinine [Mass/Vol] 0.82 mg/dL Normal 0.57-1.11 [facility] Comment on above: Performed By: #### L AB15 ####Flat Drier: ELMA ROQUE ([id number])[facility])[address] [place] [address] GLOMERULAR FILTRATION RATE ML/MIN/1.73 SQ M.PREDICTED 81.5 mL/min/1.73m*2 Normal >60.0 [facility] Comment on above: Result Comment: Calc ulation based on the Chronic Kidney Disease Epidemiology Collaboration (CKD-EPI) equation refit without adjustment for race Performed By: #### L AB15 ####Flat Drier: ELMA ROQUE ([id number])[facility])[address] [place] [address] Glucose [Mass/Vol] 182 mg/dL High 82-115 [facility] Comment on above: Performed By: #### L AB15 ####Flat Drier: ELMA ROQUE ([id number])[facility])[address] [place] [address] Potassium [Moles/Vol] 3.4 mmol/L Low 3.5-5.1 [facility] Comment on above: Result Comment: [facility] potassium values may be up to 0.5 mmol/L lower than serum values. Performed By: #### L AB15 ####Flat Drier: ELMA ROQUE ([id number])[facility])[address] [place] [address] Sodium [Moles/Vol] 139 mmol/L Normal 136-145 [facility] Comment on above: Performed By: #### L AB15 ####Flat Drier: ELMA ROQUE ([id number])[address] Urea nitrogen [Mass/Vol] 18 mg/dL Normal 9-23 [facility] Comment on above: Performed By: #### L AB15 ####Flat Drier: ELMA ROQUE ([id number])[address] Basic metabolic 1998 panelon 06-30-2025 Anion gap [Moles/Vol] 14 mmol/L High 3 - 13 mmol/L [facility] Calcium [Mass/Vol] 8.7 mg/dL Low 8.8 - 10. 0 mg/dL [facility] Chloride [Moles/Vol] 101 mmol/L 98 - 10 7 mmol/L [facility] CO2 [Moles/Vol] 24 mmol/L 23 - 31 mmol/L [facility] Creatinine [Mass/Vol] 0.82 mg/dL 0.57 - 1.11 mg/dL [facility] GFR/1.73 sq M.predicted (S/P/Bld) [Vol rate/Area] 81.5 mL/min - PINF [facility] Comment on above: Calculation based on the Chronic Kidney Disease Epidemiology Collaboration (CKD-EPI) equation refit without adjustment for race Glucose [Mass/Vol] 182 mg/dL High 82 - 115 mg/dL [facility] Interpretation and review of laboratory results Abnormal [facility] Potassium [Moles/Vol] 3.4 mmol/L Low 3.5 - 5.1 mmol/L [facility] Comment on above: Plasma potassium adri ues may be up to 0.5 mmol/L lower than serum values. Sodium [Moles/Vol] 139 mmol/L 136 - 145 mmol/L [facility] Urea nitrogen [Mass/Vol] 18 mg/dL 9 - 23 mg/dL [facility] HEMOGLOBIN AND HEMATOCRIT, B LOODon 06-30-2025 Hematocrit (Bld) [Volume fraction] 40.6 % Normal 35.0-47.0 [facility] Comment on above: Performed By: #### L AB90 #### Flat Drier: ELMA ROQUE ([id number]) [facility] ([facility]) [address] [place] [address] Hemoglobin (Bld) [Mass/Vol] 13.0 g/dL Normal 11.7-16.0 [facility] Comment on above: Performed By: #### L AB90 #### Flat Drier: ELMA ROQUE ([id number]) [facility] ([facility]) [address] [place] [address] Hemoglobin (Bld) [Mass/Vol]o n 06-30-2025 Hematocrit (Bld) [Volume fraction] 40.6 % 35.0 - 47.0 % [facility] Interpretation and review of laboratory results Normal [facility] Laboratory - Hematology and Cell countson 06-30-2025 Hemoglobin (Bld) [Mass/Vol] 13 g/dL 11.7 - 16.0 g/dL [facility] Nursing Noteon 06-30-2025 Nursing Note Virtual Admission completed. Patient instructed to use call light to call for assistance if needed. Normal [facility] Nursing Note Report called to Augustine dorado RN on H6. Pt's family updated. Normal [facility] Nursing Note Patients daughter Ap ril updated via phone [facility] [id number] 06-22-2025 [id number] Medication List Accurate as of June 22, 2025 2:24 PM. Always use your most recent med list. biotin 5000 MCG capsule Medication Adjustments for Surgery: Other (Comment) Notes to patient: PATIENT STATES LAST TAKEN ON 06/19/2025 WAS INSTRUCTED TO HOLD 10 DAYS PRIOR TO SURGERY PER SURGEONS INSTRUCTIONS. CONTINUE TO HOLD PRIOR TO SURGERY PER SURGEONS INSTRUCTIONS. BLACK COHOSH PO Medication Adjustments for Surgery: Other (Comment) Notes to patient: PATIENT STATES LAST TAKEN ON 06/19/2025 WAS INSTRUCTED TO HOLD 10 DAYS PRIOR TO SURGERY PER SURGEONS INSTRUCTIONS. CONTINUE TO HOLD PRIOR TO SURGERY PER SURGEONS INSTRUCTIONS. CALCIUM 600 PO Medication Adjustments for Surgery: Other (Comment) Notes to patient: PATIENT STATES LAST TAKEN ON 06/19/2025 WAS INSTRUCTED TO HOLD 10 DAYS PRIOR TO SURGERY PER SURGEONS INSTRUCTIONS. CONTINUE TO HOLD PRIOR TO SURGERY PER SURGEONS INSTRUCTIONS. CENTRUM SILVER ULTRA WOMENS PO Medication Adjustments for Surgery: Other (Comment) Notes to patient: PATIENT STATES LAST TAKEN ON 06/19/2025 WAS INSTRUCTED TO HOLD 10 DAYS PRIOR TO SURGERY PER SURGEONS INSTRUCTIONS. CONTINUE TO HOLD PRIOR TO SURGERY PER SURGEONS INSTRUCTIONS. citalopram 20 MG tablet Commonly known as: CeleXA Medication Adjustments for Surgery: Take morning of surgery levothyroxine 125 MCG tablet Commonly known as: Synthroid, Levoxyl Medication Adjustments for Surgery: Take morning of surgery pantoprazole 40 MG EC tablet Commonly known as: ProtoNix Medication Adjustments for Surgery: Take morning of surgery SUPER B COMPLEX PO Medication Adjustments for Surgery: Other (Comment) Notes to patient: PATIENT STATES LAST TAKEN ON 06/19/2025 WAS INSTRUCTED TO HOLD 10 DAYS PRIOR TO SURGERY PER SURGEONS INSTRUCTIONS. CONTINUE TO HOLD PRIOR TO SURGERY PER SURGEONS INSTRUCTIONS. UNABLE TO FIND Medication Adjustments for Surgery: Other (Comment) Notes to patient: FOCUS FACTOR- PATIENT STATES, NOT TAKING Additional Instructions: You may take your prescription pain medication. You may take Tylenol for pain. NO Motrin, ibuprofen or Advil for 24 hours prior to surgery or longer if instructed by your surgeon. NO Aleve or Naprosyn for 5 days prior to surgery or longer if instructed by your surgeon. IF YOU TAKE BLOOD THINNERS OR ASPIRIN: DO NOT TAKE ASPIRIN OR ANY MEDICATIONS THAT MAY CONTAIN ASPIRIN 5 DAYS PRIOR TO SURGERY. Follow any instructions given to you by Dr. SANTIAGO Shower with an antibacterial soap such as Dial or Safeguard or shower kit provided to you before coming to the hospital. No makeup, lotion, powder, deodorant or body sprays. No hair products. Remove all jewelry and leave it at home. Wear loose comfortable clothing to go home in. You may brush your teeth morning of surgery. Do not wear contacts day of surgery. No marijuana (THC), smoking, vaping, chewing tobacco, snuff, cigars, or alcohol for 24 hours prior to surgery. Please arrange for a responsible adult to drive you home after your surgery and that there is a responsible adult with you for 24 hours post discharge. If you have specific questions, please call your surgeon. You will receive a call the day before your surgery to verify your arrival time and date. You will be asked to arrive at least two hours prior to your scheduled surgery time. Please bring your [facility] Surgical folder and medication list with you day of surgery. We encourage you to write down any questions you may have for the surgeon, anesthesiologist, or other members of the surgical team and bring it with you the day of surgery. Please bring photo ID and insurance information. Normal [facility] ALBUMINon 06-22-2025 Albumin [Mass/Vol] 4.0 g/dL Normal 3.4-4.8 [facility] Comment on above: Performed By: #### L AB90 #### Flat Drier: ELMA ROQUE ([id number]) [facility] [address] [place] [address] BASIC METABOLIC PANELon 06-11 Anion gap [Moles/Vol] 6 mmol/L Normal 3-13 [facility] Comment on above: Performed By: #### L AB90 #### Flat Drier: ELMA ROQUE ([id number]) [facility] [address] [place] [address] Calcium [Mass/Vol] 9.7 mg/dL Normal 8.8-10.0 [facility] Comment on above: Performed By: #### L AB90 #### Flat Drier: ELMA ROQUE ([id number]) [facility] ([facility] [address] [place] [address] Chloride [Moles/Vol] 104 mmol/L Normal 98-107 [facility] Comment on above: Performed By: #### L AB90 #### Flat Drier: ELMA ROQUE ([id number]) [facility] [address] [place] [address] [place] CO2 [Moles/Vol] 30 mmol/L Normal 23-31 [facility] Comment on above: Performed By: #### L AB90 #### Flat Drier: ELMA ROQUE ([id number]) [facility] [address] [place] [address] Creatinine [Mass/Vol] 0.86 mg/dL Normal 0.57-1.11 [facility] Comment on above: Performed By: #### L AB90 #### Flat Drier: ELMA ROQUE ([id number]) [facility] ([facility] [address] [place] [address] GLOMERULAR FILTRATION RATE ML/MIN/1.73 SQ M.PREDICTED 77.0 mL/min/1.73m*2 Normal >60.0 [facility] Comment on above: Result Comment: Calc ulation based on the Chronic Kidney Disease Epidemiology Collaboration (CKD-EPI) equation refit without adjustment for race Performed By: #### L AB90 #### Flat Drier: ELMA ROQUE ([id number]) [facility] ([facility]) [address] [place] [address] Glucose [Mass/Vol] 79 mg/dL Low 82-115 [facility] Comment on above: Performed By: #### L AB90 #### Flat Drier: ELMA ROQUE ([id number]) [facility]) [address] [place] [address] Potassium [Moles/Vol] 4.1 mmol/L Normal 3.5-5.1 [facility] Comment on above: Result Comment: [facility] potassium values may be up to 0.5 mmol/L lower than serum values. Performed By: #### L AB90 #### Flat Drier: ELMA ROQUE ([id number]) [facility] ([facility] [address] [place] [address] [place] Sodium [Moles/Vol] 140 mmol/L Normal 136-145 [facility] Comment on above: Performed By: #### L AB90 #### Flat Drier: ELMA ROQUE ([id number]) [facility]) [address] [place] [address] Urea nitrogen [Mass/Vol] 19 mg/dL Normal 9-23 [facility] Comment on above: Performed By: #### L AB90 #### Flat Drier: ELMA ROQUE ([id number]) [facility]) [address] [place] [address] CBC (HEMOGRAM)on 06-22-2025 Erythrocyte distribution width (RBC) [Ratio] 12.8 % Normal 11.5-15.0 [facility] Comment on above: Performed By: #### L AB294 ####Flat Drier: ELMA ROQUE ([id number])[facility] [address] Hematocrit (Bld) [Volume fraction] 38.6 % Normal 35.0-47.0 [facility] Comment on above: Performed By: #### L AB294 ####Flat Drier: ELMA ROQUE ([id number])[facility])[address] [place] [address] Hemoglobin (Bld) [Mass/Vol] 12.6 g/dL Normal 11.7-16.0 [facility] Comment on above: Performed By: #### L AB294 ####Flat Drier: ELMA ROQUE ([id number])[facility])[address] [place] [address] MCH (RBC) [Entitic mass] 29.7 pg Normal 26.0-34.0 [facility] Comment on above: Performed By: #### L AB294 ####Flat Drier: ELMA ROQUE ([id number])[facility] ([facility])[address] [place] [address] MCHC 32.6 % Normal 30.5-36.0 [facility] Comment on above: Performed By: #### L AB294 ####Flat Drier: ELMA ROQUE ([id number])[facility])[address] [place] [address] MCV (RBC) [Entitic vol] 91.0 fL Normal 77.0-99.0 [facility] Comment on above: Performed By: #### L AB294 ####Flat Drier: ELMA ROQUE ([id number])[facility])[address] [place] [address] Platelet mean volume (Bld) [Entitic vol] 10.7 fL Normal 9.0-12.7 [facility] Comment on above: Performed By: #### L AB294 ####Flat Drier: ELMA ROQUE ([id number])[facility])[address] [place] [address] Platelets (Bld) [#/Vol] 238 10*3/uL Normal 140-440 [facility] Comment on above: Performed By: #### L AB294 ####Flat Drier: ELMA ROQUE ([id number])[facility])[address] [place] [address] RBC (Bld) [#/Vol] 4.24 10*6/uL Normal 3.80-5.20 [facility] Comment on above: Performed By: #### L AB294 ####Flat Drier: ELMA ROQUE ([id number])[facility])[address] [place] [address] WBC (Bld) [#/Vol] 8.7 10*3/uL Normal 3.6-10.7 [facility] Comment on above: Performed By: #### L AB294 ####Flat Drier: ELMA ROQUE ([id number])[address] HEMOGLOBIN A1Con 06-22-2025 Glucose [Mass/Vol] 108 mg/dL Normal [facility] Comment on above: Result Comment: TINO Banerjee COMMENTS: HbA1c values of 5.7-6.4 percent indicate an increased risk for developing diabetes mellitus. HbA1c values greater than or equal to 6.5 percent are diagnostic of diabetes mellitus. For diagnosis of diabetes in individuals without unequivocal hyperglycemia, results should be confirmed by repeat testing. Performed By: #### L AB90 #### Flat Drier: ELMA ROQUE ([id number]) [address] HEMOGLOBIN A1C 5.4 %HbA1C Normal <5.7 [facility] Comment on above: Result Comment: Norm al less than 5.7% Prediabetes 5.7% to 6.4% Diabetes 6.5% or higher --HgbA1C levels may not be accurate in patients who have renal disease, received recent blood transfusions, are anemic, or who have dyshemoglobinemia. Performed By: #### L AB90 #### Flat Drier: ELMA ROQUE ([id number]) [address] Progress Noteon 06-22-2025 Progress Note [facility] Oneill : 1965 Primary Care Physician: KELL LOZA MD The patient and/or family/surrogate voluntarily agreed to participate in ACP services. Patient?s cognitive capacity: The patient is alert and oriented to person, place, time, and situation. Patient has decision making capacity. Code Status: [x] [FULL CODE - Continue all advanced life support: CPR,intubation,invasive procedures] [_] [DNR-CCA - DO NOT do CPR, intubation] [_] [DNR-ENDLESS BED DRUM SANDER - Comfort care only] [_] DNR form [was/was not] signed Summary of discussion: The patient health care POA/ surrogate is the following:POA is not established at this time. [Condition that instigated the ACP on this DOS, relevant PMH, functional status, goals of care, and whom this was discussed with including names and relationship to the patient, and any relevant advance care documentation discussion] I answered all the patient/family questions that I could within the range and scope of the current medical situation. We discussed the medical conditions, risks, benefits, outcomes, and goals of care at this time for the patient's medical issues at hand in the face of the patient's chronic issues and current presentation. Total time spent: 3 minutes were spent discussing the patient's resuscitation status, advance care planning, and end of life care, with patient and/or family/surrogate. Lorena Griffith APRN - [facility] care [facility] 06/22/2025, 3:36 PM [facility] 36on 06-07-2025 36 No lovenox indicated DVT PPX Risk Factors [] Male [x] Age >= 60 years [] BMI >= 50 kg/m^2 [] CHF [] Dyspnea at Rest [] Paraplegia [x] Non-Gastric Band Surgery [] Anticipate Operative Time > 3 hours [] Anticipate Length of Stay >3 days Automatic 4 Weeks of Therapy [] Congenital or Acquired Hypercoagulable Conditions (Factor V Leiden, Prothrombin) [] Past History of DVT or PE [] Significant Chronic Venous Insufficiency Calculated Risk Score: 0.31% Risk % Weeks </> BMI 50 SQ Dose [x] Moderate <0.4% 0 None [] High Risk 0.4% - 1% 2 [] 40 mg Lovenox BID [] 60 mg Lovenox BID [] Very High Risk >1% 4 [] 40 mg Lovenox BID [] 60 Normal [facility] Office Visiton 06-07-2025 Follow-up visit [id number] González Oneill 1965 F Date Provider Department Center 06/07/2025 [facility] None Family History Problem Relation Age of Onset Obesity Mother Diabetes Mother High Blood Pressure Mother Obesity Father Diabetes Father High Blood Pressure Father Heart disease Father Stroke Father Heart disease Sister Obesity Sister Heart disease Brother High Blood Pressure Brother Family Status - Relation Status Age at Mother Alive Father Sister Alive Brother Alive Level of Service:91577 OR OFFICE/OUTPATIENT ESTABLISHED MOD MDM 30 MIN Reason for Visit and Comments: Weight Management [645] - FPOV Normal [facility] Progress Noteon 06-07-2025 Progress Note Patient History/Asse ssment Summary: The patient is a 59 y.o. year old female with morbid obesity, who stands Height: 5' 5 (165.1 cm) tall with a weight of Weight: 253 lb 3.2 oz (115 kg) , resulting in a BMI of Body mass index is 42.13 kg/m?.. The patient is scheduled to undergo weight loss surgery to treat the following comorbid conditions that are directly associated with or indirectly associated with obesity: GERD - moderate, taking meds but still having symptoms Hypothyroid Medical History[1] She attended the weight loss surgery seminar prior to their initial surgical evaluation, and attended pre-op class on . The patient is scheduled for Laparoscopic Diana-en-Y Gastric Bypass. She is here today to review the details of surgery prior to their date of surgery: 06/30/25 The patient acknowledges and understands the risks, benefits, and options we have discussed, as outlined in the Additional Informed Consent for this procedure. Patient also understands the importance of pre and post-operative recommendations, including the Pre-Operative diet and regular post-operative follow up care. The importance of ambulation and incentive spirometry was also discussed. All questions of this patient and any family members present have been answered to their satisfaction. Review of Systems Constitutional: Negative. HENT: Negative. Respiratory: Negative. Cardiovascular: Negative. Gastrointestinal: Negative. Genitourinary: Negative. Musculoskeletal: Negative. Neurological: Negative. Psychiatric/Behavioral: Negative. All other systems reviewed and are negative. Physical Examination: BP 120/79 Pulse 73 Temp 36.4 ?C (97.5 ?F) Ht 5' 5 (1.651 m) Wt 253 lb 3.2 oz (115 kg) BMI 42.13 kg/m? Physical Exam Constitutional: Appearance: Normal appearance. She is obese. HENT: Head: Normocephalic. Mouth/Throat: Mouth: Mucous membranes are moist. Eyes: Extraocular Movements: Extraocular movements intact. Conjunctiva/sclera: Conjunctivae normal. Pulmonary: Effort: Pulmonary effort is normal. Skin: General: Skin is warm and dry. Neurological: Mental Status: She is alert and oriented to person, place, and time. Mental status is at baseline. Psychiatric: Mood and Affect: Mood normal. Behavior: Behavior normal. Surgical History: Surgical History[2] Current Medications Patient's Medications New Prescriptions No medications on file Previous Medications B COMPLEX-C (SUPER B COMPLEX PO) Take 1 tablet by mouth daily. BIOTIN 5000 MCG CAPSULE Take 1 capsule by mouth daily. BLACK COHOSH PO Take by mouth. CALCIUM CARBONATE (CALCIUM 600 PO) Take 1 tablet by mouth daily. CITALOPRAM (CELEXA) 20 MG TABLET Take 20 mg by mouth daily. LEVOTHYROXINE (SYNTHROID, LEVOXYL) 125 MCG TABLET Take 125 mcg by mouth daily. MULTIPLE VITAMINS-MINERALS (CENTRUM SILVER ULTRA WOMENS PO) Take 1 tablet by mouth daily. PANTOPRAZOLE (PROTONIX) 40 MG EC TABLET Take 40 mg by mouth daily. UNABLE TO FIND Take 4 tablets by mouth daily. Med Name: Focus Factor Modified Medications No medications on file Discontinued Medications No medications on file Recommendations: We spent a great deal of time discussing the risks and benefits of Laparoscopic Diana-en-Y Gastric Bypass, including but not limited to injury to intra-abdominal organs, breakdown of the gastric staple line, the need for re-operative therapy, prolonged hospitalization, mechanical ventilation, and . We discussed the possibility of bleeding, the need for blood transfusions, blood clots, hospital-acquired and intra-abdominal infection, anastomotic stricture, and worsening GERD. And we discussed the need for post-operative visit compliance, behavior modifications and diet changes, protein and vitamin supplementation, aswell as routine scheduled and dedicated exercise. We discussed the potential weight loss benefit to approximately 60-70% of her excess body weight at 12-18 months post-op, as well as the possibility of insufficient weight loss or weight gain after 2 years post-operative time. Upon completion of all required pre-operative testing we will submit for insurance pre-authorization. PATIENT SUMMARY Jaime GOODE 59 y.o. female with Body mass index is 41.54 kg/m?. Lap Diana En Y and Liver Bx w/HH Procedure DM[] HTN[] MICHELLE[] GERD[x] HL[] OA[] TOB[] Date of Surgery:06/30/25 NOTES MP PCP: INITIAL TESTING RESULTS Labwork [x] CMP, TSH, Fasting Lipid Profile, Mg, Zinc, Vit B1 (whole blood), Vit B12, 25-OH Vit D, Fe, Ferritin, Folate 03/10/25 TSH ok Tobacco [x] Serum Nicotine / Cotinine 04/30/25 [x] Negative [] Positive EGD [x] Dx: [x] GERD [] Dyspepsia [] Other 03/25/25 Pathology [x] H. pylori [x] Negative [] Positive UGI [x] [] not ordered if patient is planning on Diana En Y 04/20/25-unremarkable US Abdomen [] [x] not ordered if S/P Radha MICHELLE eval [] [] On CPAP / Obtain settings Not tested Hematology (more content not included)... [place] [address]on 05-25-2025 36 Orders signed [place] [address] Noted, thank you. [place] [address] Noted, thank you. [place] [address]on 05-24-2025 36 Please schedule surg valorie for 06/30/25, order placed. [facility] 36 Patient takes Anticoagulant: NO Name: Prescriber: Patient takes SGLT-2 Inhibitor: NO INVOKANA- canagliflozin JARDIANCE-empagliflozin STEGLATRO - ertugliflozin BRENZAVVY - bexagliflozin FARXIGA- dapagliflozin - If taking, is it used for Heart Failure: Patient assigned female at taking control that contains Estrogen: NO Difficult IV: NO Pain Management Provider: NO Support Person: ADULT GRANDDAUGHTER Date Restrictions for Surgery: NONE [place] [address] Auth APPROVED: Yes Approved for: inpatient Insurance: [employer]ARE ID number: [id number] Authorization number: [id number] Valid dates: 06/22/2025 - 08/18/2025 Notes: INPATIENT AUTH APPROVAL FOR CPT 98906, 79944, 03182 / SCANNED TO [facility] 36on 05-20-2025 36 Noted, thank you. [place] [address] Auth submitted: Yes Insurance: [employer] MEDICARE ID number: [id number] Notes: INPATIENT AUTH REQUESTED FOR CPT 52364, 37143, 86283 PENDING AUTH # [id number] [facility] 36on 05-11-2025 36 Lap Diana En Y and Li parth Bx w/HH In [facility] 36 She is good to go no w! ?? Trish was able to move her money, so she can be scheduled. Abdulaziz Valderrama Executive Marketing Assistant - Weight Management Ins [facility] money was applied to incorrect account- Billing fixed it on 05/11/25 [place] [address] Ready for submission . Thank you. Nicotine is scanned with chart review- I faxed to 260 today. [facility] Nicotine Screen Bloodon 04-12 COTININE BLOOD <1.0 Normal . [facility] Comment on above: Result Comment: This test was developed and its performance characteristics determined by [employer]. It has not been cleared or approved by the Food and Drug Administration. Cotinine levels greater than 20.0 are consistent with the use of tobacco or tobacco cessation products. Performed at: [address] [id number] Screening Unit Registered Nurse: Lou Leung MD, Phone: [phone] Performed By: #### L 3600.3400 #### [facility] [place], [address] NICOTINE BLOOD <1.0 Normal . [facility] Comment on above: Result Comment: This test was developed and its performance characteristics determined by [employer]. It has not been cleared or approved by the Food and Drug Administration. Nicotine levels greater than 2.0 are consistent with the use of tobacco or tobacco cessation products. Performed By: #### L 3600.3400 #### [facility] [address] [place], [address] Serum or plasma nicotine craig surement (mass/volume)on 04-30-2025 Nicotine [Mass/Vol] <1.0 ug/mL . [facility] Comment on above: This test was develo ped and its performance characteristicsdetermined by [facility]. It has not been cleared orapproved by the Food and Drug Administration.Nicotine levels greater than 2.0 are consistent with theuse of tobacco or tobacco cessation products. 29on 04-27-2025 29 Addended by: BIBIANA MCCAULEY on: 04/27/2025 09:39 AM Modules accepted: Orders [facility] 29 Addended by: STEPHANIE VIDAL on: 04/27/2025 08:22 AM Modules accepted: Orders [facility] 36on 04-27-2025 36 Mendoza please [facility] [id number] 04-22-2025 [id number] Results reviewed and CCN updated [facility] [id number] Results received, pl aced in physician folder for review. [facility] Upper GI Dual Contraston Upper GI Dual Contrast [facility] Imaging Services [address] [place], [place] [address] Upper GI Dual Contrast MR#: [id number] Acct: [id number] Name: JAIME ONEILL Rep #: [id number] : 1965 F 59 From: Aden valderrama MD PCP: Dr. Edilberto Loza MD Status: REG CLI Study: Upper GI Dual Contrast Date of Exam: 04/20/25 Exam# [id number] Ordering Dr: JULIANA BHATIA PROCEDURE: UPPER GI DUAL CONTRAST 04/20/2025 REASON FOR EXAM: HEARTBURN, PRE OP TECHNIQUE: The patient ingested barium. Multiple images of the esophagus, stomach and duodenum were obtained. 1 minute and 14 seconds of fluoroscopy. 122.3 mGy. COMPARISON: None FINDINGS: The esophagus is unremarkable. No evidence of gastroesophageal obstruction. No mass lesion. No gastroesophageal reflux. The stomach and duodenum are unremarkable. No evidence of ulceration. No mass lesion is seen. RAD/Upper GI Dual Contrast IMPRESSION: Unremarkable air contrast upper GI series. Reading Location: [facility] CC: Dr. 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 Collar Stitcher: Signed Normal [facility] Office Visiton 04-08-2025 Follow-up visit [id number] González Onelil alli 1965 F Date Provider Department Center 04/08/2025 [id number]-AYAIHJULIANA WRAY*ACH [facility] SURG None Family History Problem Relation Age of Onset Obesity Mother Diabetes Mother High Blood Pressure Mother Obesity Father Diabetes Father High Blood Pressure Father Heart disease Father Stroke Father Heart disease Sister Obesity Sister Heart disease Brother High Blood Pressure Brother Family Status - Relation Status Age at Mother Alive Father Sister Alive Brother Alive Level of Service:27952 OR OFFICE/OUTPATIENT ESTABLISHED SF MDM 10 MIN Reason for Visit and Comments: Weight Management [645] - D/E FINAL 3 OF 3 Normal [facility] Follow-up visit [id number] González Oneill alli 1965 F Date Provider Department Center 04/08/2025 JF IVEY SHMG ACH ELIZABETH SHMGCV [address] Family History Problem Relation Age of Onset Obesity Mother Diabetes Mother High Blood Pressure Mother Obesity Father Diabetes Father High Blood Pressure Father Heart disease Father Stroke Father Heart disease Sister Obesity Sister Heart disease Brother High Blood Pressure Brother Family Status - Relation Status Age at Mother Alive Father Sister Alive Brother Alive Level of Service:47187 OR OFFICE/OUTPATIENT NEW LOW MDM 30 MINUTES Reason for Visit and Comments: Cardiac Clearance [882] Normal [facility] Progress Noteon 04-08-2025 Progress Note [facility] [address] [facility] [facility] [address] Dept: [phone] Dept Visit Type: New NAME: Jaime Oneill : 1965 Reason for Visit: No chief complaint on file. Assessment and Plan 1. Gastroesophageal reflux disease without esophagitis - Ambulatory referral to Cardiology - ECG 12 lead - CLINIC PERFORMED 2. Morbid obesity with BMI of 40.0-44.9, adult (HCC) - Ambulatory referral to Cardiology 3. Hypothyroidism, unspecified type - Ambulatory referral to Cardiology 4. Pre-op testing - Ambulatory referral to Cardiology She is planning to have bariatric surgery. She has no cardiovascular complaints. Her EKG today is normal. Her blood pressure is well-controlled. Her lipid panel shows mild hyperlipidemia at which point she should continue modifying risk factors and efforts for weight loss. She is at low risk of robb-operative cardiovascular morbidity or mortality. It is reasonable to proceed with the needed surgery without further investigation or delay. Having bariatric intervention and subsequent weight loss should improve his/her symptoms and decrease the likelihood of future cardiovascular events. [facility]iology At [facility] [place] remain available to assist in the patient's perioperative care as needed. Follow-up as needed Subjective HPI Jaime Oneill is an 59 y.o. female who presents for cardiac evaluation prior to planned bariatric surgery. She has a history of hypothyroidism and acid reflux. She denies a history of coronary artery disease, myocardial infarction, heart failure, arrhythmias, valvular disease, thromboembolism, kidney or liver diease, or stroke. She has no complaints of chest pain, palpitations, shortness of breath, orthopnea, edema, lightheadedness, dizziness, syncope or abnormal bleeding. Family history as documented below Social history She quit tobacco 3 years ago; No alcohol use; No illicit drugs Occupation-disabled d/t back injury Activities/exercise-Gym twice a week and walks 3 miles outside weather permitting Review of Systems as above Allergies[1] Current Medications[2] Medical History[3] Social History Tobacco Use Smoking status: Former Average packs/day: 1 pack/day for 44.8 years (44.8 ttl pk-yrs) Types: Cigarettes Start date: 05/11/1977 Smokeless tobacco: Never Tobacco comments: Quit smoking: Taking Chantix Substance Use Topics Alcohol use: Never Surgical History[4] Family History[5] Objective Vitals: 04/08/25 1034 BP: 108/82 Pulse: 69 Weight: 249 lb (113 kg) Height: 5' 5 (1.651 m) Physical Exam Vitals reviewed. Constitutional: Appearance: Normal appearance. She is obese. HENT: Head: Normocephalic and atraumatic. Nose: Nose normal. Eyes: Extraocular Movements: Extraocular movements intact. Pupils: Pupils are equal, round, and reactive to light. Cardiovascular: Rate and Rhythm: Normal rate and regular rhythm. Pulses: Radial pulses are 2+ on the right side and 2+ on the left side. Heart sounds: No murmur heard. No friction rub. No gallop. Pulmonary: Effort: Pulmonary effort is normal. Breath sounds: Normal breath sounds. No wheezing, rhonchi or rales. Chest: Chest wall: No tenderness. Musculoskeletal: General: No swelling. Normal range of motion. Cervical back: Normal range of motion. Right lower leg: No edema. Left lower leg: No edema. Skin: General: Skin is warm and dry. Capillary Refill: Capillary refill takes less than 2 seconds. Neurological: General: No focal deficit present. Mental Status: She is alert and oriented to person, place, and time. Psychiatric: Mood and Affect: Mood normal. Behavior: Behavior normal. Thought Content: Thought content normal. Judgment: Judgment normal. Data Reviewed and Summarized METS>4 Wilkes Estimated Risk Probability for Perioperative Myocardial Infarction or Cardiac Arrest: 0.2 %. Revised Cardiac Risk Index (RCRI) Estimated Rate of Myocardial Infarction, Pulmonary Edema, Ventricular Fibrillation, Cardiac Arrest, or Complete Heart Block: 3.9 Lab Results Component Value Date GLUCOSE 89 03/10/2025 CALCIUM 9.5 03/10/2025 NA 140 03/10/2025 K 4.5 03/10/2025 CO2 27 03/10/2025 CL 103 03/10/2025 BUN 21 03/10/2025 CREATININE 0.83 03/10/2025 Lab Results Component Value Date WBC 5.7 03/10/2025 HGB 13.3 03/10/2025 HCT 41.0 03/10/2025 MCV 91.5 03/10/2025 PLT 263 03/10/2025 Lab Results Component Value Date LDLCALC 137 (H) 03/10/2025 CARDIAC TESTING REVIEWED: EKG in Office: EKG: No results found for this or any previous visit (from the past 4464 hours). ECHOCARDIOGRAM: No results found for this or any previous visit. STRESS: No results found for this or any previous visit. HEART CATH: No results found for this or any previous visit. [1] No Known Allergies [2] Current Outpatient Medications: B Complex-C (SUPER B (more content not included)... Normal [facility] Laboratory - Chemistry and C hemistry - challengeon 03-18-2025 Thiamine (Bld) [Moles/Vol] 166 nmol/L 78 - 185 nmol/L [facility] Comment on above: Vitamin supplementation within 24 hours prior to blood draw may affect the accuracy of the results. This test was developed and its analytical performance characteristics have been determined by [employer] [place], [place]. It has not been cleared or approved by the U.S. Food and Drug Administration. This assay has been validated pursuant to the CLIA regulations and is used for clinical purposes. Test Performed by [facility], [employer] [facility], [address] [place], [place] Cholo Alcantara M.D., Ph.D., Director of Laboratories , CLIA [id number] No Panel Informationon 03-18 [facility] 36on 03-17-2025 36 Patient had informed that she was established at [facility]- clearance form faxed. They responded not a patient. Spoke with patient again. She cannot remember exactly where she went before it's been years. She will schedule with [facility]. Phone number provided. [facility] 36on 03-15-2025 36 Patient call back- s he goes to [facility]- clearance request faxed [place] [address] Spoke to patient. Mar olivier somehow thought she had to have UGI BEFORE the EGD and that was what was worrying her. I assured her it was fine to schedule the UGI on April 19. She states she will call me back with name of her [employer] so I can fax a clearance request. [facility] 36 Left another for patient requesting ret call. [facility] - Drug toxicology on 03-12-2025 Zinc [Mass/Vol] 82 [facility] Comment on above: This test was developed and its analytical performance characteristics have been determined by [employer] [place], [place]. It has not been cleared or approved by the U.S. Food and Drug Administration. This assay has been validated pursuant to the CLIA regulations and is used for clinical purposes. Test Performed by [facility], [facility], [address] [place], [place] Cholo Alcantara M.D., Ph.D., Director of Laboratories , ANDREY [id number] No Panel Informationon 03-12 [facility] 36on 03-11-2025 36 Left VM to call me a t direct line. Unsure what the confusion/question is. Normal [facility] 36 MP Pt last seen yesterday w [facility] for D&E 12/14. Pt called and left message that the soonest she can get UGI done at [facility] is 04/19/25. [facility]-does she need to try another location or just wait and have a 4th D&E in April? Normal [facility] 36 Order for recheck signed. Normal [facility] 36 Pre-op patient Mycharted pt regarding high vitamin D (77). Rec'd pt stop taking 10,000 IU vitamin D daily for now and will recheck lab in three months. Normal [facility] 36 ----- Message from Roya Bhatia APRN - ERIN sent at 03/10/2025 12:58 PM EDT ----- Vit D is elevated - thanks Normal [facility] 25-hydroxyvitamin D3 [Mass/V ol]on 03-10-2025 Interpretation and review of laboratory results Abnormal [facility] Target concentration : 30 - 40 ng/mL; toxicity seen at concentrations >100 ng/mL Less than 20 ng/mL: Indicative of Vit D deficiency Test performed by [facility], measuring Total Vitamin D, not individual fractions. [facility] 29on 03-10-2025 29 Addended by: MARCELINA FLORES on: 03/10/2025 09:28 AM Modules accepted: Orders Normal [facility] 29 Addended by: MARCELINA FLORES on: 03/10/2025 09:27 AM Modules accepted: Orders Normal [facility] CBC (HEMOGRAM)on 03-10-2025 Erythrocyte distribution width (RBC) [Ratio] 12.9 % Normal 11.5-15.0 [facility] Comment on above: Order Comment: These orders are set for an approximate date - they can be drawn up to 3 months prior to the Expected Date on this Req.Please send results to: KELL LOZA MD - [address] [id number] - [phone] if not done at a [facility] Facility, please send to:[facility] - [address] [place] [address], [address]Xbqlw: [phone] Yoiaupl Name: Jaime Oneill - 1965Order Created by : Mattie Brady LPN Performed By: #### L AB294 ####Flat Drier: ELMA ROQUE ([id number])[address] Hematocrit (Bld) [Volume fraction] 41.0 % Normal 35.0-47.0 [facility] Comment on above: Order Comment: These orders are set for an approximate date - they can be drawn up to 3 months prior to the Expected Date on this Req.Please send results to: MD Saurabh CORTES [address] [address] - [phone] if not done at a [facility] Facility, please send to:[facility] - [address] [place] [address], [address]Ipdzc: [phone] Kzdjbsz Name: Jaime Oneill - 1965Order Created by : Mattie Brady LPN Performed By: #### L AB294 ####Flat Drier: ELMA ROQUE ([id number])[address] Hemoglobin (Bld) [Mass/Vol] 13.3 g/dL Normal 11.7-16.0 [facility] Comment on above: Order Comment: These orders are set for an approximate date - they can be drawn up to 3 months prior to the Expected Date on this Req.Please send results to: MD Saurabh CORTES [address] [phone] - [phone] if not done at a [facility], please send to:[place] [address]Phone: Iehsgkv Name: Jaime Oneill - 1965Order Created by : Mattie Brady LPN Performed By: #### L AB294 ####Flat Drier: ELMA ROQUE ([id number])[facility] ([facility])[address] [place] [address] MCH (RBC) [Entitic mass] 29.7 pg Normal 26.0-34.0 [facility] Comment on above: Order Comment: These orders are set for an approximate date - they can be drawn up to 3 months prior to the Expected Date on this Req.Please send results to: MD Saurabh CORTES [address] [place] [id number] - [phone] if not done at a [facility] Facility, please send to:[place] [address]Phone: Razkgmg Name: Jaime Oneill - 1965Order Created by : Mattie Brady LPN Performed By: #### L AB294 ####Flat Drier: ELMA ROQUE ([id number])[facility] ([facility])[address] [place] [address] MCHC 32.4 % Normal 30.5-36.0 [facility] Comment on above: Order Comment: These orders are set for an approximate date - they can be drawn up to 3 months prior to the Expected Date on this Req.Please send results to: KELL LOZA MD - [address] [facility] [address] [phone] - [phone] if not done at a [facility] Facility, please send to:[address], [address]Ptjih: [phone] Ddyhxzk Name: Jaime Wiley 1965Order Created by : Mattie Brady LPN Performed By: #### L AB294 ####Flat Drier: ELMA ROQUE ([id number])[facility])[address] [place] [address] MCV (RBC) [Entitic vol] 91.5 fL Normal 77.0-99.0 [facility] Comment on above: Order Comment: These orders are set for an approximate date - they can be drawn up to 3 months prior to the Expected Date on this Req.Please send results to: KELL LOZA MD - [address] [address] - [phone] if not done at a [facility] Facility, please send to:[place] [address]Phone: Gzeqaeb Name: Jaime Oneill - 1965Order Created by : Mattie Brady LPN Performed By: #### L AB294 ####Flat Drier: ELMA ROQUE ([id number])[address] Platelet mean volume (Bld) [Entitic vol] 10.9 fL Normal 9.0-12.7 [facility] Comment on above: Order Comment: These orders are set for an approximate date - they can be drawn up to 3 months prior to the Expected Date on this Req.Please send results to: KELL LOZA MD - [address] [address] - [phone] if not done at a [facility] Facility, please send to:[place] [address]Phone: Yibsbhv Name: Jaime Wiley 1965Order Created by : Mattie Brady LPN Performed By: #### L AB294 ####Flat Drier: ELMA ROQUE ([id number])[facility] ([facility])[address] [place] [address] Platelets (Bld) [#/Vol] 263 10*3/uL Normal 140-440 [facility] Comment on above: Order Comment: These orders are set for an approximate date - they can be drawn up to 3 months prior to the Expected Date on this Req.Please send results to: KELL LOZA MD - [address] [id number] - [phone] if not done at a [facility] Facility, please send to:[place] [address]Phone: Uhgwslu Name: Jaime Wiley 1965Order Created by : Mattie Brady LPN Performed By: #### L AB294 ####Flat Drier: ELMA ROQUE ([id number])[facility] ([facility])[address] [place] [address] RBC (Bld) [#/Vol] 4.48 10*6/uL Normal 3.80-5.20 [facility] Comment on above: Order Comment: These orders are set for an approximate date - they can be drawn up to 3 months prior to the Expected Date on this Req.Please send results to: MD Saurabh CORTES [address] inderjit [address] [id number] - [phone] if not done at a [facility] Facility, please send to:[place] [address]Phone: Mkqqsgl Name: Jaime Oneill - 1965Order Created by : Mattie Brady LPN Performed By: #### L AB294 ####Flat Drier: ELMA ROQUE ([id number])[facility] ([facility])[address] [place] [address] WBC (Bld) [#/Vol] 5.7 10*3/uL Normal 3.6-10.7 [facility] Comment on above: Order Comment: These orders are set for an approximate date - they can be drawn up to 3 months prior to the Expected Date on this Req.Please send results to: KELL LOZA MD - [address] [address] - [phone] if not done at a [facility], please send to:[facility] - [facility] - [address] [place] [address], Suite [facility], [address]Uxzqe: [phone] Bwwomwr Name: Jaime Oneill - 1965Order Created by : Mattie Brady LPN Performed By: #### L AB294 ####Flat Drier: ELMA ROQUE ([id number])[facility] ([facility])[address] [place] [address] CBC panel Auto (Bld)Ordered By: Kim Flores on 03-10-2025 Erythrocyte distribution width (RBC) [Ratio] 12.9 % 11.5 - 15.0 % [facility] Hematocrit (Bld) [Volume fraction] 41 % 35.0 - 47.0 % [facility] Hemoglobin (Bld) [Mass/Vol] 13.3 g/dL 11.7 - 16.0 g/dL [facility] Interpretation and review of laboratory results Normal [facility] MCH (RBC) [Entitic mass] 29.7 pg 26.0 - 34.0 pg [facility] MCHC (RBC) [Mass/Vol] 32.4 % 30.5 - 36.0 % [facility] MCV (RBC) [Entitic vol] 91.5 fL 77.0 - 99.0 fL [facility] Platelet mean volume (Bld) [Entitic vol] 10.9 fL 9.0 - 12.7 fL [facility] Platelets (Bld) [#/Vol] 263 10*3/uL 140 - 440 10*3/uL [facility] RBC (Bld) [#/Vol] 4.48 10*6/uL 3.80 - 5.20 10*6/uL [facility] WBC (Bld) [#/Vol] 5.7 10*3/uL 3.6 - 10.7 10*3/uL [facility] COMPREHENSIVE METABOLIC PANE Geo 03-10-2025 Albumin [Mass/Vol] 4.3 g/dL Normal 3.4-4.8 [facility] Comment on above: Order Comment: These orders are set for an approximate date - they can be drawn up to 3 months prior to the Expected Date on this Req.Please send results to: KELL LOZA MD - [address] [phone] - [phone] if not done at a [facility] Facility, please send to:[address] [address]Iurcd: [phone] Fhtzsai Name: Jaime Oneill 1965Order Created by : Mattie Brady LPN Performed By: #### L AB90 #### Flat Drier: ELMA ROQUE ([id number]) [address] ALP [Catalytic activity/Vol] 86 U/L Normal 40-150 [facility] Comment on above: Order Comment: These orders are set for an approximate date - they can be drawn up to 3 months prior to the Expected Date on this Req.Please send results to: KELL LOZA MD - [address] [facility] [phone] - [phone] if not done at a [facility], please send to:[address], [address]Rvsjf: [phone] Tqdvjbs Name: Jaime Oneill 1965Order Created by : Mattie Brady LPN Performed By: #### L AB90 #### Flat Drier: ELMA ROQUE ([id number]) [facility]) [address] [place] [address] ALT [Catalytic activity/Vol] 37 U/L High <30 [facility] Comment on above: Order Comment: These orders are set for an approximate date - they can be drawn up to 3 months prior to the Expected Date on this Req.Please send results to: MD Saurabh CORTES [address] She[address] [place] [address] [phone] - [phone] if not done at a [facility], please send to:[place] [address]Phone: Qbiquxo Name: Jaime Oneill - 1965Order Created by : Mattie Brady LPN Performed By: #### L AB90 #### Flat Drier: ELMA ROQUE ([id number]) [address] Anion gap [Moles/Vol] 10 mmol/L Normal 3-13 [facility] Comment on above: Order Comment: These orders are set for an approximate date - they can be drawn up to 3 months prior to the Expected Date on this Req.Please send results to: MD Saurabh CORTES [address] Shepard [facility] [phone] - [phone] if not done at a [facility] Facility, please send to:[place] [address]Phone: Dpofdpd Name: Jaime Oneill 1965Order Created by : Mattie Brady LPN Performed By: #### L AB90 #### Flat Drier: ELMA ROQUE ([id number]) [facility] ([facility]) [address] [place] [address] AST [Catalytic activity/Vol] 40 U/L High <34 [facility] Comment on above: Order Comment: These orders are set for an approximate date - they can be drawn up to 3 months prior to the Expected Date on this Req.Please send results to: MD Saurabh CORTES [facility] 103[facility] [phone] - [phone] if not done at a [facility] Facility, please send to:[address], [address]Kkffs: [phone] Rmggaku Name: Jaime Wiley 1965Order Created by : Mattie Brady LPN Performed By: #### L AB90 #### Flat Drier: ELMA ROQUE ([id number]) [facility]) [address] [place] [address] Bilirubin [Mass/Vol] 0.4 mg/dL Normal <1.2 [facility] Comment on above: Order Comment: These orders are set for an approximate date - they can be drawn up to 3 months prior to the Expected Date on this Req.Please send results to: KELL LOZA MD - [address] [place] [phone] - [phone] if not done at a [facility], please send to:[place] [address]Phone: Dcbwvah Name: Jaime Wiley 1965Order Created by : Mattie Brady LPN Performed By: #### L AB90 #### Flat Drier: ELMA ROQUE ([id number]) [address] Calcium [Mass/Vol] 9.5 mg/dL Normal 8.8-10.0 [facility] Comment on above: Order Comment: These orders are set for an approximate date - they can be drawn up to 3 months prior to the Expected Date on this Req.Please send results to: KELL LOZA MD - [address] [address] - [phone] if not done at a [facility], please send to:[address], [address]Yifta: [phone] Vktlrjw Name: Jaime Wiley 1965Order Created by : Mattie Verh, BOGGER OPERATOR Performed By: #### L AB90 #### Flat Drier: ELMA ROQUE ([id number]) [facility]) [address] [place] [address] Chloride [Moles/Vol] 103 mmol/L Normal 98-107 [facility] Comment on above: Order Comment: These orders are set for an approximate date - they can be drawn up to 3 months prior to the Expected Date on this Req.Please send results to: KELL LOZA MD - [address] [phone] - [phone] if not done at a [facility], please send to:[place] [address]Phone: Aeehlce Name: Jaime Oneill 1965Order Created by : Mattie Brady BOGGER OPERATOR Performed By: #### L AB90 #### Flat Drier: ELMA ROQUE ([id number]) [facility]) [address] [place] [address] CO2 [Moles/Vol] 27 mmol/L Normal 23-31 [facility] Comment on above: Order Comment: These orders are set for an approximate date - they can be drawn up to 3 months prior to the Expected Date on this Req.Please send results to: KELL LOZA MD - [address] [phone] - [phone] if not done at a [facility], please send to:[place] [address]Phone: Vsswprj Name: Jaime Oneill - 1965Order Created by : Mattie Brady BOGGER OPERATOR Performed By: #### L AB90 #### Flat Drier: ELMA ROQUE ([id number]) [facility]) [address] [place] [address] Creatinine [Mass/Vol] 0.83 mg/dL Normal 0.57-1.11 [facility] Comment on above: Order Comment: These orders are set for an approximate date - they can be drawn up to 3 months prior to the Expected Date on this Req.Please send results to: KELL LOZA MD - [address]jit [place] [address] [phone] - [phone] if not done at a [facility], please send to:[facility] - [address] [place] [address]Tnglg: [phone] Zdncfpn Name: Jaime Wiley 1965Order Created by : Mattie Brady LPN Performed By: #### L AB90 #### Flat Drier: ELMA ROQUE ([id number]) [facility] ([facility]) [address] [place] [address] GLOMERULAR FILTRATION RATE ML/MIN/1.73 SQ M.PREDICTED 80.3 mL/min/1.73m*2 Normal >60.0 [facility] Comment on above: Order Comment: These orders are set for an approximate date - they can be drawn up to 3 months prior to the Expected Date on this Req.Please send results to: KELL LOZA MD - [address] inderjit [facility] [phone] - [phone] if not done at a [facility], please send to:[address] [address]Kjday: [phone] Wugqrdm Name: Jaime Wiley 1965Order Created by : Mattie Brady LPN Result Comment: Calc ulation based on the Chronic Kidney Disease Epidemiology Collaboration (CKD-EPI) equation refit without adjustment for race Performed By: #### L AB90 #### Flat Drier: ELMA ROQUE ([id number]) [facility] ([facility]) [address] [place] [address] Glucose [Mass/Vol] 89 mg/dL Normal 82-115 [facility] Comment on above: Order Comment: These orders are set for an approximate date - they can be drawn up to 3 months prior to the Expected Date on this Req.Please send results to: MD Saurabh CORTES [address] [phone] - [phone] if not done at a [facility], please send to:[place] [address]Phone: Ljggwch Name: Jaime Oneill - 1965Order Created by : Mattie Brady LPN Performed By: #### L AB90 #### Flat Drier: ELMA ROQUE ([id number]) [address] Potassium [Moles/Vol] 4.5 mmol/L Normal 3.5-5.1 [facility] Comment on above: Order Comment: These orders are set for an approximate date - they can be drawn up to 3 months prior to the Expected Date on this Req.Please send results to: MD Saurabh CORTES [address] [phone] - [phone] if not done at a [facility] Facility, please send to:[place] [address]Phone: Hxdwjnz Name: Jaime Oneill - 1965Order Created by : Mattie Brady LPN Result Comment: [facility] potassium values may be up to 0.5 mmol/L lower than serum values. Performed By: #### L AB90 #### Flat Drier: ELMA ROQUE ([id number]) [facility]) [address] [place] [address] [place] Protein [Mass/Vol] 8.0 g/dL Normal 6.4-8.3 [facility] Comment on above: Order Comment: These orders are set for an approximate date - they can be drawn up to 3 months prior to the Expected Date on this Req.Please send results to: MD Saurabh CORTES [address] [phone] - [phone] if not done at a [facility] Facility, please send to:[address], [address]Tctaq: [phone] Mndnayt Name: Jaime Oneill - 1965Order Created by : Mattie Brady BOGGER OPERATOR Performed By: #### L AB90 #### Flat Drier: ELMA ROQUE ([id number]) [facility] [address] [place] [address] Sodium [Moles/Vol] 140 mmol/L Normal 136-145 [facility] Comment on above: Order Comment: These orders are set for an approximate date - they can be drawn up to 3 months prior to the Expected Date on this Req.Please send results to: MD Saurabh CORTES [address] [phone] - [phone] if not done at a [facility] Facility, please send to:[address], [address]Izdpj: [phone] Jipqbhu Name: Jaime Oneill - 1965Order Created by : Mattie Brady BOGGER OPERATOR Performed By: #### L AB90 #### Flat Drier: ELMA ROQUE ([id number]) [facility] [address] [place] [address] Urea nitrogen [Mass/Vol] 21 mg/dL Normal 9-23 [facility] Comment on above: Order Comment: These orders are set for an approximate date - they can be drawn up to 3 months prior to the Expected Date on this Req.Please send results to: MD Saurabh CORTES [address] [phone] - [phone] if not done at a [facility] Facility, please send to:[address], [address]Aauud: [phone] Wqyrmzq Name: Jaime Oneill - 1965Order Created by : Mattie Brady LPN Performed By: #### L AB90 #### Flat Drier: ELMA ROQUE ([id number]) [facility] ([facility]) [address] [place] [address] Cobalamin (Vitamin B12) [Mas s/Vol]on 03-10-2025 Interpretation and review of laboratory results Normal [facility] Comprehensive metabolic 1998 panelon 03-10-2025 Albumin [Mass/Vol] 4.3 g/dL 3.4 - 4.8 g/dL [facility] ALP [Catalytic activity/Vol] 86 U/L 40 - 150 U/L [facility] ALT [Catalytic activity/Vol] 37 U/L High NINF - 30 U/L [facility] Anion gap [Moles/Vol] 10 mmol/L 3 - 13 mmol/L [facility] AST [Catalytic activity/Vol] 40 U/L High NINF - 34 U/L [facility] Bilirubin [Mass/Vol] 0.4 mg/dL NINF - 1.2 mg/dL [facility] Calcium [Mass/Vol] 9.5 mg/dL 8.8 - 10. 0 mg/dL [facility] Chloride [Moles/Vol] 103 mmol/L 98 - 10 7 mmol/L [facility] CO2 [Moles/Vol] 27 mmol/L 23 - 31 mmol/L [facility] Creatinine [Mass/Vol] 0.83 mg/dL 0.57 - 1.11 mg/dL [facility] GFR/1.73 sq M.predicted (S/P/Bld) [Vol rate/Area] 80.3 mL/min - PINF [facility] Comment on above: Calculation based on the Chronic Kidney Disease Epidemiology Collaboration (CKD-EPI) equation refit without adjustment for race Glucose [Mass/Vol] 89 mg/dL 82 - 115 mg/dL [facility] Potassium [Moles/Vol] 4.5 mmol/L 3.5 - 5.1 mmol/L [facility] Comment on above: Plasma potassium adri ues may be up to 0.5 mmol/L lower than serum values. Protein [Mass/Vol] 8 g/dL 6.4 - 8.3 g/dL [facility] Sodium [Moles/Vol] 140 mmol/L 136 - 145 mmol/L [facility] Urea nitrogen [Mass/Vol] 21 mg/dL 9 - 23 mg/dL [facility] FERRITINon 03-10-2025 Ferritin [Mass/Vol] 69 ng/mL Normal 5-204 [facility] Comment on above: Result Comment: ORDE R COMMENTS: These orders are set for an approximate date - they can be drawn up to 3 months prior to the Expected Date on this Req. Please send results to: KELL LOZA MD - [address] [phone] - [phone] And if not done at a [facility], please send to: [address], [address] Patient Name: Jaime Oneill - 1965 Order Created by : Mattie Brady LPN Ferritin levels below 10 ng/mL have been reported as indicative of iron deficiency anemia. Performed By: #### L AB90 #### Flat Drier: ELMA ROQUE ([id number]) [address] FOLATEon 03-10-2025 FOLATE RESULT 18.1 ng/mL Normal 7.0-31.4 [facility] Comment on above: Order Comment: These orders are set for an approximate date - they can be drawn up to 3 months prior to the Expected Date on this Req.Please send results to: KELL LOZA MD - [address] inderjit [facility] 103[facility] [phone] - [phone] if not done at a [facility] Facility, please send to:[address], [address]Sqzai: [phone] Kmqjimi Name: Jaime Oneill - 1965Order Created by : Mattie Brady LPN Result Comment: TC Significant interference from hemolysis. Result integrity compromised. Interpret with caution. Performed By: #### L AB90 #### Flat Drier: ELMA ROQUE ([id number]) [facility] [address] [place] [address] [place] Ferritin [Mass/Vol]on 2024 Interpretation and review of laboratory results Normal [facility] Ferritin levels belo w 10 ng/mL have been reported as indicative of iron deficiency anemia. [facility] Folate [Mass/Vol]on 03-10-20 Interpretation and review of laboratory results Normal [facility] HEMOGLOBIN A1Con 03-10-2025 Glucose [Mass/Vol] 108 mg/dL Normal [facility] Comment on above: Result Comment: ORDE R COMMENTS: These orders are set for an approximate date - they can be drawn up to 3 months prior to the Expected Date on this Req. Please send results to: KELL LOZA MD - [address] [address] - [phone] And if not done at a [facility], please send to: [facility] - [address] [place] [address], [address] [facility], [address] Patient Name: Jaime Oneill - 1965 Order Created by : Mattie Brady LPN HbA1c values of 5.7-6.4 percent indicate an increased risk for developing diabetes mellitus. HbA1c values greater than or equal to 6.5 percent are diagnostic of diabetes mellitus. For diagnosis of diabetes in individuals without unequivocal hyperglycemia, results should be confirmed by repeat testing. Performed By: #### L AB90 ####Flat Drier: ELMA ROQUE ([id number])[facility] [place] [address] HEMOGLOBIN A1C 5.4 %HbA1C Normal <5.7 [facility] Comment on above: Result Comment: Norm al less than 5.7% Prediabetes 5.7% to 6.4% Diabetes 6.5% or higher --HgbA1C levels may not be accurate in patients who have renal disease, received recent blood transfusions, are anemic, or who have dyshemoglobinemia. Performed By: #### L AB90 ####Flat Drier: ELMA ROQUE ([id number])[facility])[address] [place] [address] IRONon 03-10-2025 IRON, TOTAL 81 ug/dL Normal 50-170 [facility] Comment on above: Order Comment: These orders are set for an approximate date - they can be drawn up to 3 months prior to the Expected Date on this Req.Please send results to: KELL LOZA MD - [address] [phone] - [phone] if not done at a [facility], please send to:[facility] - [address] [place], [place] [address]Phone: Ozjohbe Name: Jaime Oneill - 1965Order Created by : Mattie Brady LPN Performed By: #### L [id number], [id number], LAB94 ####Flat Drier: ELMA ROQUE ([id number])[facility])[address] [place] [address] Iron and Iron binding capaci ty panelon 03-10-2025 Iron [Mass/Vol] 81 ug/dL 50 - 170 ug/dL [facility] LIPID PANELon 03-10-2025 Cholesterol [Mass/Vol] 227 mg/dL High <200 [facility] Comment on above: Order Comment: These orders are set for an approximate date - they can be drawn up to 3 months prior to the Expected Date on this Req.Please send results to: KELL LOZA MD - [address] [facility] 103[facility] [phone] - [phone] if not done at a [facility], please send to:[address], [address]Lwvys: [phone] Ijqquks Name: Jaime Oneill - 1965Order Created by : Mattie Brady LPN Performed By: #### L AB90 #### Flat Drier: ELMA ROQUE ([id number]) [facility]) [address] [place] [address] Cholesterol in HDL [Mass/Vol] 75 mg/dL Normal >=60 [facility] Comment on above: Order Comment: These orders are set for an approximate date - they can be drawn up to 3 months prior to the Expected Date on this Req.Please send results to: KELL LOZA MD - [address] [phone] - [phone] if not done at a [facility], please send to:[place] [address]Phone: Etywfgk Name: Jaime Oneill - 1965Order Created by : Mattie Brady LPN Performed By: #### L AB90 #### Flat Drier: ELMA ROQUE ([id number]) [address] Cholesterol.total/Chol esterol in HDL [Mass ratio] 3 {ratio} Normal [facility] Comment on above: Order Comment: These orders are set for an approximate date - they can be drawn up to 3 months prior to the Expected Date on this Req.Please send results to: KELL LOZA MD - [address] [phone] - [phone] if not done at a [facility], please send to:[place] [address]Phone: Htgutmg Name: Jaime Oneill - 1965Order Created by : Mattie Brady LPN Result Comment: Ref Range: < 3 Low Risk for CHD 3-6 Mod Risk for CHD > 6 High Risk for CHD Performed By: #### L AB90 #### Flat Drier: ELMA ROQUE ([id number]) [facility] ([facility]) [address] [place] [address] [place] LOW DENSITY LIPOPROTEIN 137 mg/dL High 0-<100 [facility] Comment on above: Order Comment: These orders are set for an approximate date - they can be drawn up to 3 months prior to the Expected Date on this Req.Please send results to: MD Saurabh CORTES Osmininderjit [address] [address] - [phone] if not done at a [facility] Facility, please send to:[address], [address]Exjvu: [phone] Slthwwu Name: Jaime Oneill 1965Order Created by : Mattie Brady LPN Performed By: #### L AB90 #### Flat Drier: ELMA ROQUE ([id number]) [address] NON-HDL CHOLESTEROL, CALCULATED 152 High <130 [facility] Comment on above: Order Comment: These orders are set for an approximate date - they can be drawn up to 3 months prior to the Expected Date on this Req.Please send results to: MD Saurabh CORTES [address] [phone] - [phone] if not done at a [facility], please send to:[address], [address]Ewcmn: [phone] Yuljvsh Name: Jaime Oneill 1965Order Created by : Mattie Brady LPN Performed By: #### L AB90 #### Flat Drier: ELMA ROQUE ([id number]) [facility] [address] [place] [address] Triglyceride [Mass/Vol] 75 mg/dL Normal <150 [facility] Comment on above: Order Comment: These orders are set for an approximate date - they can be drawn up to 3 months prior to the Expected Date on this Req.Please send results to: MD Saurabh CORTES [address] [phone] - [phone] if not done at a [facility], please send to:[facility] - [address] [place] [address], [address]Cwzyq: [phone] Hiqestk Name: Jaime Oneill - 1965Order Created by : Mattie Brady LPN Performed By: #### L AB90 #### Flat Drier: ELMA ROQUE ([id number]) [facility] ([facility]) [address] [place] [address] VERY LOW DENSITY LIPOPROTEIN, CALCULATED 15 mg/dL Normal <=30 [facility] Comment on above: Order Comment: These orders are set for an approximate date - they can be drawn up to 3 months prior to the Expected Date on this Req.Please send results to: KELL LOZA MD - [address] [facility] 103[facility] [address] - [phone] if not done at a [facility], please send to:[address], [address]Dpuil: [phone] Oonztpx Name: Jaime Oneill - 1965Order Created by : Mattie Brady LPN Performed By: #### L AB90 #### Flat Drier: ELMA ROQUE ([id number]) [facility] [address] [place] [address] Laboratory - Chemistry and C hemistry - challengeon 03-10-2025 Folate [Mass/Vol] 18.1 ng/mL 7.0 - 31.4 ng/mL [facility] Comment on above: TC Significant interference from hemolysis. Result integrity compromised. Interpret with caution. Cobalamin (Vitamin B12) [Mass/Vol] 693 pg/mL 213 - 816 pg/mL [facility] Comment on above: TC Significant interference from hemolysis. Result integrity compromised. Interpret with caution. Ferritin [Mass/Vol] 69 ng/mL 5 - 204 ng/mL [facility] 25-hydroxyvitamin D3 [Mass/Vol] 77 ng/mL High See comment [facility] TSH Qn 0.45 m[IU]/L [facility] Average glucose Estimated from glycated hemoglobin (Bld) [Mass/Vol] 108 mg/dL [facility] Magnesium [Mass/Vol] 1.9 mg/dL 1.6 - 2 .6 mg/dL [facility] Laboratory - Hematology and Cell countson 03-10-2025 HbA1c (Bld) [Mass fraction] 5.4 % [facility] Comment on above: Normal less than 5.7 % Prediabetes 5.7% to 6.4% Diabetes 6.5% or higher --HgbA1C levels may not be accurate in patients who have renal disease, received recent blood transfusions, are anemic, or who have dyshemoglobinemia. Lipid 1996 panelon Cholesterol [Mass/Vol] 227 mg/dL High [facility] - 200 mg/dL [facility] Cholesterol in HDL [Mass/Vol] 75 mg/dL 60 - PINF mg/dL [facility] Cholesterol in LDL [Mass/Vol] 137 mg/dL High 0 - <100 [facility] Cholesterol.total/Chol esterol in HDL [Mass ratio] 3 {ratio} [facility] Comment on above: Ref Range: < 3 Low Risk for CHD 3-6 Mod Risk for CHD > 6 High Risk for CHD NON-HDL CHOLESTEROL, CALCULATED 152 High [facility] - 130 [facility] Triglyceride [Mass/Vol] 75 mg/dL [facility] - 150 mg/dL [facility] VERY LOW DENSITY LIPOPROTEIN, CALCULATED 15 mg/dL [facility] - 30 mg/dL [facility] MAGNESIUMon 03-10-2025 Magnesium [Mass/Vol] 1.9 mg/dL Normal 1.6-2.[address] [facility] Comment on above: Result Comment: TINO Banerjee COMMENTS: These orders are set for an approximate date - they can be drawn up to 3 months prior to the Expected Date on this Req. Please send results to: KELL LOZA MD - [address] [address] - [phone] And if not done at a [facility] Facility, please send to: [facility] - [address] [place] [address], [address] [facility], [address] Patient Name: Jaime Oneill - 1965 Order Created by : Mattie Brady LPN Higher values can be expected in females during menses. Performed By: #### L AB90 #### Flat Drier: ELMA ROQUE ([id number]) [facility] ([facility]) [address] [place] [address] [place] Magnesium [Mass/Vol]on 03-10 Interpretation and review of laboratory results Normal [facility] Higher values can be expected in females during menses. [facility] No Panel Informationon 03-10 Interpretation and review of laboratory results Normal [facility] HbA1c values of 5.7- 6.4 percent indicate an increased risk for developing diabetes mellitus. HbA1c values greater than or equal to 6.5 percent are diagnostic of diabetes mellitus. For diagnosis of diabetes in individuals without unequivocal hyperglycemia, results should be confirmed by repeat testing. [facility] Interpretation and review of laboratory results Abnormal [facility] Office Visiton 03-10-2025 Follow-up visit [id number] OneillMarbella ortizrichard carson 1965 F Date Provider Department Center 03/10/2025 [id number]-VMTLJPK-NTAIWJULIANA BHATIA*[facility] BCC SURG None Family History Problem Relation Age of Onset Obesity Mother Diabetes Mother High Blood Pressure Mother Obesity Father Diabetes Father High Blood Pressure Father Heart disease Father Stroke Father Heart disease Sister Obesity Sister Heart disease Brother High Blood Pressure Brother Family Status - Relation Status Age at Mother Alive Father Sister Alive Brother Alive Level of Service:50467 OR OFFICE/OUTPATIENT ESTABLISHED [facility] 10 MIN Reason for Visit and Comments: Weight Management [645] - D/E 2 OF 3 Normal [facility] THYROID STIMULATING HORMONEo n 03-10-2025 THYROID STIMULATING HORMONE 0.45 uIU/mL Normal 0.35-4.94 [facility] Comment on above: Order Comment: These orders are set for an approximate date - they can be drawn up to 3 months prior to the Expected Date on this Req.Please send results to: KELL LOZA MD - [address] [facility] [address] - [phone] if not done at a [facility] Facility, please send to:[facility] - [address] [place] [address], [address] [facility], [address]Dinsf: [phone] Xskoqzb Name: Jaime Oneill - 1965Order Created by : Mattie Brady LPN Performed By: #### L AB535, [id number], LAB94 ####Flat Drier: ELMA ROQUE ([id number])[facility] ([facility] [place] [address] VITAMIN B1, WHOLE BLOOD (BKR [facility])on 03-10-2025 [facility] VITAMIN B1 (THIAMINE), BLOOD, LC/MS/MS 166 nmol/L Normal 78-185 [facility] Comment on above: Order Comment: These orders are set for an approximate date - they can be drawn up to 3 months prior to the Expected Date on this Req.Please send results to: KELL LOZA MD - [address] [address] - [phone] if not done at a [facility] Facility, please send to:[address], [place] [address]Phone: Nehxpqp Name: Jaime Oneill - 1965Order Created by : Mattie Brady LPN Result Comment: Vitamin supplementation within 24 hours prior to blood draw may affect the accuracy of the results. This test was developed and its analytical performance characteristics have been determined by [facility] [place], [place]. It has not been cleared or approved by the U.S. Food and Drug Administration. This assay has been validated pursuant to the CLIA regulations and is used for clinical purposes. Test Performed by [facility], [facility], [address] [place] [address] Cholo Alcantara M.D., Ph.D., Director of Laboratories , CLIA [id number] Performed By: #### L AB90 #### Flat Drier: ELMA ROQUE ([id number]) [facility] ([facility]) [address] [place] [address] VITAMIN B12on 03-10-2025 Cobalamin (Vitamin B12) [Mass/Vol] 693 pg/mL Normal 213-816 [facility] Comment on above: Order Comment: These orders are set for an approximate date - they can be drawn up to 3 months prior to the Expected Date on this Req.Please send results to: KELL LOZA MD - [address] [facility] 103[facility] [address] - [phone] if not done at a [facility] Facility, please send to:[place] [address]Phone: Cluwgng Name: Jaime Oneill - 1965Order Created by : Mattie Brady LPN Result Comment: TC Significant interference from hemolysis. Result integrity compromised. Interpret with caution. Performed By: #### L AB90 #### Flat Drier: ELMA ROQUE ([id number]) [facility] ([facility]) [address] [place] [address] VITAMIN D DEFICIENCY SCREENI NG (VIT D 25)on 03-10-2025 VIT D 25-OH, TOTAL 77 ng/mL High See comment [facility] Comment on above: Result Comment: ORDE R COMMENTS: These orders are set for an approximate date - they can be drawn up to 3 months prior to the Expected Date on this Req. Please send results to: KELL LOZA MD - [address] Osmininderjit [facility] [address] [place] [address] - [phone] And if not done at a [facility] Facility, please send to: [place] [address] Patient Name: Jaime Oneill - 1965 Order Created by : Mattie Brady LPN Target concentration: 30 - 40 ng/mL; toxicity seen at concentrations >100 ng/mL Less than 20 ng/mL: Indicative of Vit D deficiency Test performed by [facility], measuring Total Vitamin D, not individual fractions. Performed By: #### L AB535, [id number], LAB94 ####Flat Drier: ELMA ROQUE ([id number])[facility] ([facility])[address] [place] [address] ZINC (BKR [facility])on 5 [facility] ZINC 82 mcg/dL Normal 60-130 [facility] Comment on above: Order Comment: These orders are set for an approximate date - they can be drawn up to 3 months prior to the Expected Date on this Req.Please send results to: KELL LOZA MD - [address] [facility] 103[facility] [address] - [phone] if not done at a [facility] Facility, please send to:[facility] - [address] [place] [address], [address] [facility], [address]Obxdt: [phone] Uspsnmt Name: Jaime Oneill - 1965Order Created by : Mattie Brady LPN Result Comment: This test was developed and its analytical performance characteristics have been determined by [place]. It has not been cleared or approved by the U.S. Food and Drug Administration. This assay has been validated pursuant to the CLIA regulations and is used for clinical purposes. Test Performed by [facility], [facility], [address] [place] [address] Cholo Alcantara M.D., Ph.D., Director of Laboratories , CLIA [id number] Performed By: #### L AB581 ####[employer] ([employer])[address] [place] [address] [facility] Office Visiton 03-02-2025 Follow-up visit [id number] NinoGonzálezrichard carson 1965 F Date Provider Department Center 03/02/2025 [id number]-PKWIWBIBIANA ESPINOZA [facility] Family History Problem Relation Age of Onset Obesity Mother Diabetes Mother High Blood Pressure Mother Obesity Father Diabetes Father High Blood Pressure Father Heart disease Father Stroke Father Heart disease Sister Obesity Sister Heart disease Brother High Blood Pressure Brother Family Status - Relation Status Age at Mother Alive Father Sister Alive Brother Alive Level of Service:32611 OR PSYCL/NRPSYCL TST ELEC PLATFORM AUTO RESULT Reason for Visit and Comments: Psychiatric Evaluation [636266] - testing [facility] Follow-up visit [id number] González Oneill 1965 F Date Provider Department Center 03/02/2025 [id number]-JZTPEBIBIANA ESPINOZA [facility] None Family History Problem Relation Age of Onset Obesity Mother Diabetes Mother High Blood Pressure Mother Obesity Father Diabetes Father High Blood Pressure Father Heart disease Father Stroke Father Heart disease Sister Obesity Sister Heart disease Brother High Blood Pressure Brother Family Status - Relation Status Age at Mother Alive Father Sister Alive Brother Alive Level of Service:89200 OR PSYCHIATRIC DIAGNOSTIC EVALUATION Reason for Visit and Comments: Psychiatric Evaluation [641833] Normal [facility] Progress Noteon 03-02-2025 Progress Note [facility] MANAGEMENT [place] PSYCHOLOGICAL TESTING VIA COMPUTER PATIENT: Jaime Oneill DATE OF : 1965 SERVICE: Psychological Testing by Computer SERVICE DATE: 03/02/25 START/STOP TIME: 10:00-11:02a TOTAL TEST TIME: 62 minutes Jaime Oneill completed the [place] Multiphasic Personality Inventory-3 (MMPI-3) in the office, via computer, administered by trained personnel. Test results report was printed, critical items were reviewed, and results will be interpreted by the psychologist in conjunction with intake self-report measures, the patient's medical record, and information gathered at the clinical interview. Bibiana Espinoza, PhD Clinical Psychologist [facility] Progress Noteon 02-25-2025 Progress Note [facility] BARIATRIC CARE [facility] BARIATRIC NUTRITION ASSESSMENT / DIET & EXERCISE SURGICAL WEIGHT LOSS MANAGEMENT PROGRAM Date: 02/25/25 Patient Name: Jaime Oneill Date of : 1965 Type of Assessment: Surgical Patient - Pre-op Initial Assessment Weight Metrics: Today's Height: 5' 5 (1.651 m) Today's Weight: 250 lb (113 kg) Today's BMI: Body mass index is 41.6 kg/m?. Surgeon: Dr. Santiago Surgical Procedure: [x] not to make a decision regarding a weight loss procedure, MP wants EGD before decision Preop Diet: 2 wks Medical History: Past Medical History: Diagnosis Date Anxiety Back pain Depression GERD (gastroesophageal reflux disease) Morbid obesity, unspecified obesity type (HCC) 01/21/2025 Thyroid disease Current Medications: has a current medication list which includes the following prescription(s): b complex-c, biotin, calcium carbonate, cholecalciferol, citalopram, levothyroxine, multiple vitamins-minerals, pantoprazole, and UNABLE TO FIND. Weight History Patient has been considering weight loss surgery for 2 years Primary reason(s) for weight loss for better health Number of years over weight several PREVIOUS WEIGHT LOSS ATTEMPTS Method When Amount lost Amount regained Most successful Lifestyle Changes Now [facility] CURRENT MEAL PLANNING Self Spouse Significant Other Child Not Planned or Varies Other Meals planned by x x Food shopping done by x x Meals cooked by x x CURRENT EATING BEHAVIORS: Pt is eating 5-6x daily. We discussed the importance of eating every 2-3 hours and including a lean source of protein at each meal/snack. Adequate protein intake noted. Reviewed high protein options, many of which the pt is already consuming such as ham, chicken, eggs, etc. - Pairing a lean protein with a complex carbohydrate: handout provided - Complaint with current vitamins/medications: - Pt is motivated to make dietary changes required for WLS. - Pt is at least consuming 64 fluid ounces daily # of meals eaten way from home each week [x] < 5 [] 5-10 [] > 10 Types of restauants [x] Fast Food [] Cafeteria [x] Full Service [] Buffet Reasons for eating out: [] Doesn't like to cook [] No time [] Doesn't know how [x] Eating out with friends and family Drinks Coffee/Tea [] No [x] Yes Type/Quantity: 1-2 cups/daily Drinks Soft Drinks/Pop [] No [x] Yes Type/Quantity: Occasional pop Drinks Alcohol [x] No [] Yes Type/Quantity: Drinks Water [] No [x] Yes Type/Quantity: Drinks Fruit Juice or Milk [x] No [] Yes Type/Quantity: Drinks Sports Drinks [] No [x] Yes Type/Quantity: Gatorade Zero CURRENT EATING HABITS/ADDITIONAL INFORMATION 24 Hour Recall completed: Yes Breakfast: Eggs with duenas or protein shake Snack: Cheese or nuts Lunch: Chicken salad Dinner: Homemade vegetable soup with ham Snack: Cheese or nuts Drinks: Coffee, Gatorade zero, water, and occasional pop SUPPORT SYSTEM A. Family knowledgeable about/supportive of plans for weight loss surgery: Yes B. Patient understands that they must have someone in their home 24/7 for the first week following surgery, or that they must be able to stay with someone for the first week Yes C. Co-workers knowledgeable about/supportive of plans for weight loss surgery: Yes KNOWLEDGE AND EDUCATION ASSESSMENT AND PLAN Patient's level of knowledge regarding the changes that will have to be made in their diet following weight loss surgery is: [x] Good - patient has good foundation of knowledge, will require some education Areas of concern include: - consuming sugary, carbonated, or caffeinated beverages- to stop consuming carbonated, sugary, or caffeine beverages and discussed the risk and concerns with drinking them after surgery. Recommended beverages that are not a concern to drink after surgery. RECOMMENDATIONS AND PLAN [x] Educational Materials Provided [x]Strategies for Eating handout given to and discussed with patient [x] Patient cleared for weight loss surgery Patient able to state major diet changes that need to be made following surgery Patient states/demonstrates readiness to make necessary diet changes Bariatric Nutrition Assessment completed by: Dashawn Workman [facility] 36on 02-22-2025 36 Corrected. [facility] 36 This is a 3 visit maura palmer. Next visit marked 2 of 6- I do not know how to correct with new system. Thanks! [facility] 37on 02-19-2025 37 YOUR APPOINTMENT TOAve DOUGLASS WAS WITH THE [facility] L[facility], COPD CLINIC, PULMONARY AND SLEEP MEDICINE OFFICE. PLEASE CALL OUR OFFICE AT [phone] IF YOU HAVE NOT RECEIVED YOUR TEST RESULTS 7 DAYS AFTER TESTING IS COMPLETED. PLEASE REMEMBER TO REQUEST REFILLS AT YOUR OFFICE VISITS. PHONE/FAX REQUESTS REQUIRE 48-72 HOURS FOR RESPONSE. A FRIENDLY REMINDER COPAYS ARE DUE AT TIME OF SERVICE. THANK YOU. Our Patients Are Important! We want to improve and you can help. After your visit we want you to feel: Listened to, Respected and have your health care explained. You may receive a survey asking you about your visit. Please complete the survey. We will use your feedback to make improvements. COVID-19 VACCINATION INFORMATION: PH. [phone] HEALTH.ORG/CORONAVIRUS/VACC INE [facility] Central Scheduling [phone] [facility] Sleep Scheduling [phone] [facility] Office Visiton 02-19-2025 Follow-up visit [id number] González Oneill 1965 F Date Provider Department Center 02/19/2025 [id number] RINCON *[facility] None Family History Problem Relation Age of Onset Obesity Mother Diabetes Mother High Blood Pressure Mother Obesity Father Diabetes Father High Blood Pressure Father Heart disease Father Stroke Father Heart disease Sister Obesity Sister Heart disease Brother High Blood Pressure Brother Family Status - Relation Status Age at Mother Alive Father Sister Alive Brother Alive Level of Service:54675 OR OFFICE/OUTPATIENT NEW LOW MDM 30 MINUTES Reason for Visit and Comments: New Patient [542] Normal [facility] Progress Noteon 02-19-2025 Progress Note Visit type: New laxmi ent History of Present Illness: HPI History of Present Illness: Jaime Oneill is a 59 y.o. female patient being seen for pre-operative pulmonary clearance. She was recently seen by Dr. Santiago and plans to undergo bariatric surgery in the near future. She feels well today. Hx of underlying lung disease: none Respiratory symptoms: Denies any symptoms such as SOB, coughing, wheezing, chest tightness, or CP. Reports that she has a sports medicine trainer which she sees x2 per week, plus working out on her own at home. States that she has no issues with sleeping. States that her has noticed her snoring, but was not told that she has ever been apneic. No orthopnea or PND. Feels well rested. Hx of GERD, on Protonix daily. Reports symptoms are controlled. No issues with heart burn at this time.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 Comment on above: Performed By: #### L 500.4050, L501.9520, L500.4100, L100.0100 #### [facility] [address] [place], [address] ALK PHOS 81 U/L Normal 35-104 [facility] Comment on above: Performed By: #### L 500.4050, L501.9520, L500.4100, L100.0100 #### [facility] [address] [place], [address] ALT [Catalytic activity/Vol] 37 U/L High <=34 [facility] Comment on above: Performed By: #### L 500.4050, L501.9520, L500.4100, L100.0100 #### [facility] [address] [place], [address] AST [Catalytic activity/Vol] 32 U/L Normal <=31 [facility] Comment on above: Performed By: #### L 500.4050, L501.9520, L500.4100, L100.0100 #### [facility] [address] [place], [address] Bilirubin [Mass/Vol] 0.23 mg/dL Normal 0.00-1.30 [facility] Comment on above: Performed By: #### L 500.4050, L501.9520, L500.4100, L100.0100 #### [facility] [address] [place], [address] BUN/CRE 18.4 RATIO Normal 10-20 [facility] Comment on above: Performed By: #### L 500.4050, L501.9520, L500.4100, L100.0100 #### [facility] [address] [place], [address] Calcium [Mass/Vol] 9.9 mg/dL Normal 7.6-11.0 [facility] Comment on above: Performed By: #### L 500.4050, L501.9520, L500.4100, L100.0100 #### [facility] [address] [place], [address] Chloride [Moles/Vol] 101 mmol/L Normal 98-108 [facility] Comment on above: Performed By: #### L 500.4050, L501.9520, L500.4100, L100.0100 #### [facility] [address] [place], [address] CO2 [Moles/Vol] 25.7 mmol/L Normal 21.0-32.0 [facility] Comment on above: Performed By: #### L 500.4050, L501.9520, L500.4100, L100.0100 #### [facility] [address] [place], [address] Creatinine [Mass/Vol] 0.87 mg/dL Normal 0.70-1.20 [facility] Comment on above: Performed By: #### L 500.4050, L501.9520, L500.4100, L100.0100 #### [facility] [address] [place], [address] GAP 13 Normal 5-15 [facility] Comment on above: Performed By: #### L 500.4050, L501.9520, L500.4100, L100.0100 #### [facility] [address] [place], [address] GFR/1.73 sq M.predicted among non-blacks MDRD (S/P/Bld) [Vol rate/Area] 75 mL/min/{1.73_m2} Normal >60 [facility] Comment on above: Result Comment: mL/m in/1.73m2 CKD-EPI Creatinine Equation (2020) Performed By: #### L 500.4050, L501.9520, L500.4100, L100.0100 #### [facility] [address] [place], [address] Globulin (S) [Mass/Vol] 3.3 g/dL Normal 2.2-4.2 [facility] Comment on above: Performed By: #### L 500.4050, L501.9520, L500.4100, L100.0100 #### [facility] [address] [place], [address] Glucose [Mass/Vol] 91 mg/dL Normal 70-99 [facility] Comment on above: Performed By: #### L 500.4050, L501.9520, L500.4100, L100.0100 #### [facility] [address] [place], [address] Potassium [Moles/Vol] 4.7 mmol/L Normal 3.3-5.1 [facility] Comment on above: Performed By: #### L 500.4050, L501.9520, L500.4100, L100.0100 #### [facility] [address] [place], [address] Sodium [Moles/Vol] 140 mmol/L Normal 133-145 [facility] Comment on above: Performed By: #### L 500.4050, L501.9520, L500.4100, L100.0100 #### [facility] [address] [place], [address] T PROT 7.9 g/dL Normal 5.9-8.4 [facility] Comment on above: Performed By: #### L 500.4050, L501.9520, L500.4100, L100.0100 #### [facility] [address] [place], [address] Urea nitrogen [Mass/Vol] 16 mg/dL Normal 4-19 [facility] Comment on above: Performed By: #### L 500.4050, L501.9520, L500.4100, L100.0100 #### [facility] [address] [place], [address] Eosinophil percentageOrdered By: Edilberto Loza on 01-14-2025 Eosinophils/100 WBC (Bld) 1.1 % 0-5 [facility] Erythrocyte distribution wid th ratioOrdered By: Edilberto Loza on 01-14-2025 Erythrocyte distribution width (RBC) [Ratio] 13.0 % 11.6-14.6 [facility] Erythrocyte distribution wid th standard deviationOrdered By: Edilberto Loza on 01-14-2025 Erythrocyte distribution width (RBC) [Entitic vol] 42.9 fL 35.1-43.9 [facility] Erythrocyte distribution width (RBC) [Ratio] 42.9 fl 35.1-43.9 [facility] GFR/1.73 sq M.predicted jerson g non-blacks MDRD (S/P/Bld) [Vol rate/Area]Ordered By: Edilberto Loza on 01-14-2025 Estimated GFR (MDRD) Non-Af Amer 75 >60 [facility] Comment on above: mL/min/1.73m2 CKD-EP I Creatinine Equation (2020) Glomerular filtration rate ( GFR) estimation/1.73 sq m using serum, plasma, or whole bOrdered By: Edilberto Loza on 01-14-2025 GFR/1.73 sq M.predicted among non-blacks MDRD (S/P/Bld) [Vol rate/Area] 75 mL/min/{1.73_m2} >60 [facility] Comment on above: mL/min/1.73m2 CKD-EP I Creatinine Equation (2020) Hematocrit Auto (Bld) [Volum e fraction]Ordered By: Edilberto Loza on 01-14-2025 Hematocrit (Bld) [Volume fraction] 38.5 % 37-47 [facility] Hemoglobin measurementOrdere d By: Edilberto Loza on 01-14-2025 Hemoglobin (Bld) [Mass/Vol] 12.4 g/dL 12.0-15.0 [facility] Immature granulocytes/100 WB C Auto (Bld)Ordered By: Edilberto Loza 01-14-2025 Immature granulocytes/100 WBC (Bld) 0.300 % 0.0-0.9 [facility] Comment on above: IG% - Immature Granu locytes (promyelocytes, myelocytes and metamyelocytes) > 1% indicates that a LEFT SHIFT is Present. LDL calc ser/plasOrdered By: Edilberto Loza on 01-14-2025 Cholesterol in LDL [Mass/Vol] 93 mg/dL [facility] Comment on above: Ckcdhcrlut=824-168 m g/dL & Higher Tzsv=831 mg/dL or greater LDL Cholesterol, Calculated 93 mg/dL [facility] Comment on above: Sjspftgywt=328-111 m g/dL & Higher Svvc=350 mg/dL or greater Laboratory - Chemistry and C hemistry - challengeOrdered By: Edilberto Loza on 01-14-2025 AST [Catalytic activity/Vol] 32 U/L <32 [facility] Lipid Profileon 01-14-2025 CHOL:HDL 2.33 Normal [facility] Comment on above: Performed By: #### L 500.4050, L501.9520, L500.4100, L100.0100 #### [facility] [address] [place], [address] Cholesterol [Mass/Vol] 201 mg/dL Normal <=200 [facility] Comment on above: Result Comment: Chol esterol level, Desirable <200 mg/dL Borderline high cholesterol 200-239 mg/dL High cholesterol >=240 mg/dL Recommendations of the NCEP Adult Treatment Panel for the following risk-cutoff thresholds for the [place] population. Performed By: #### L 500.4050, L501.9520, L500.4100, L100.0100 #### [facility] [address] [place], [address] Cholesterol in HDL [Mass/Vol] 86 mg/dL Normal [facility] Comment on above: Result Comment: Maddy onal Cholesterol Education Program (NCEP) guidelines: <40 mg/dL: Low HDL-cholesterol (major risk factor for CHD) >= 60 mg/dL: High HDL-cholesterol (negative risk factor for CHD) HDL-cholesterol is affected by a number of factors, e.g. smoking, exercise, hormones, sex and age. Performed By: #### L 500.4050, L501.9520, L500.4100, L100.0100 #### [facility] [address] [place], [address] Cholesterol in LDL [Mass/Vol] 93 mg/dL Normal [facility] Comment on above: Result Comment: Bord gpgarx=784-144 mg/dL Higher Dpzl=844 mg/dL or greater Performed By: #### L 500.4050, L501.9520, L500.4100, L100.0100 #### [facility] [address] [place], [address] Cholesterol in VLDL [Mass/Vol] 21 mg/dL Normal 5-40 [facility] Comment on above: Performed By: #### L 500.4050, L501.9520, L500.4100, L100.0100 #### [facility] [address] [place], [address] Triglyceride [Mass/Vol] 107 mg/dL Normal [facility] Comment on above: Result Comment: The drugs N-Acetylcysteine and Metamizole may falsely depress this assay. Normal range: <150 mg/dL Borderline High: 150-199 mg/dL High: 200-499 mg/dL Very High: >500 mg/dL Performed By: #### L 500.4050, L501.9520, L500.4100, L100.0100 #### [facility] [address] [place], [address] Lymphocytes Auto (Unsp spec) [#/Vol]Ordered By: Edilberto Loza on 01-14-2025 Lymphocytes (Bld) [#/Vol] 2.15 10*3/uL 0.83-4.51 [facility] Lymphocytes/100 WBC Auto (Un sp spec)Ordered By: Edilberto Loza on 01-14-2025 Lymphocytes/100 WBC (Bld) 30.1 % 19-41 [facility] MCV (mean corpuscular volume ) determinationOrdered By: Edilberto Loza on 01-14-2025 MCV (RBC) [Entitic vol] 90.8 fL 81-99 [facility] Mean corpuscular hemoglobin (MCH) determinationOrdered By: Edilberto Loza on 01-14-2025 MCH (RBC) [Entitic mass] 29.2 pg 27.0-32.0 [facility] Mean corpuscular hemoglobin concentration (MCHC) determinationOrdered By: Edilberto Loza on 01-14-2025 MCHC (RBC) [Mass/Vol] 32.2 g/dL 32-36 [facility] Mean platelet volume determi nationOrdered By: Edilberto Loza on 01-14-2025 Platelet mean volume (Bld) [Entitic vol] 10.9 fL 6.2-12.0 [facility] Monocyte percentageOrdered B y: Edilberto Loza on 01-14-2025 Monocytes/100 WBC (Bld) 8.8 % 0-10 [facility] Neutrophil percentageOrdered By: Edilberto Loza on 01-14-2025 Neutrophils/100 WBC (Bld) 58.6 % 47-70 [facility] Nucleated red blood cell per centageOrdered By: Edilberto Loza on 01-14-2025 Nucleated RBC/100 WBC (Bld) [Ratio] 0 % 0-5 [facility] Platelet countOrdered By: Ricardo Loza on 01-14-2025 Platelets (Bld) [#/Vol] 276 10*3/uL 150-450 [facility] Potassium (Unsp spec) [Mass/ Vol]Ordered By: Edilberto Loza on 01-14-2025 Potassium [Moles/Vol] 4.7 mmol/L 3.3-5.1 [facility] Potassium measurement (mass/ volume)Ordered By: Edilberto Loza on 01-14-2025 Potassium (Unsp spec) [Mass/Vol] 4.7 mmol/L 3.3-5.1 [facility] RBC Auto (Bld) [#/Vol]Ordere d By: Edilberto Loza on 01-14-2025 RBC (Bld) [#/Vol] 4.24 10*6/uL 4.2-5.4 [facility] Screening total cholesterol/ high density lipoprotein (HDL) cholesterol ratioOrdered By: Edilberto Loza on 01-14-2025 Cholesterol.total/Chol esterol in HDL [Mass ratio] 2.33 {ratio} [facility] Serum creatinine measurement (mass/volume)Ordered By: Edilberto Loza on 01-14-2025 Creatinine [Mass/Vol] 0.87 mg/dL 0.70-1.20 [facility] Serum globulin measurementOr dered By: Edilberto Loza on 01-14-2025 Globulin (S) [Mass/Vol] 3.3 g/dL 2.2-4.2 [facility] Serum glucose measurement (m ass/volume)Ordered By: Edilberto Loza on 01-14-2025 Glucose [Mass/Vol] 91 mg/dL 70-99 [facility] Serum or plasma alanine fisher otransferase (ALT) measurementOrdered By: Edilberto Loza on 01-14-2025 ALT [Catalytic activity/Vol] 37 U/L High <35 [facility] Serum or plasma albumin milena urement (mass/volume)Ordered By: Edilberto Loza 01-14-2025 Albumin [Mass/Vol] 4.6 g/dL 3.4-4.8 [facility] Serum or plasma albumin/glob ulin mass ratioOrdered By: Edilberto Loza 01-14-2025 Albumin/Globulin [Mass ratio] 1.4 {ratio} 0.9-2.4 [facility] Serum or plasma alkaline tana sphatase measurementOrdered By: Edilberto Loza 01-14-2025 ALP [Catalytic activity/Vol] 81 U/L 35-104 [facility] Serum or plasma calcium milena urement (mass/volume)Ordered By: Edilberto Loza 01-14-2025 Calcium [Mass/Vol] 9.9 mg/dL 7.6-11.0 [facility] Serum or plasma cholesterol in HDL measurement (mass/volume)Ordered By: Edilberto Loza 01-14-2025 Cholesterol in HDL [Mass/Vol] 86 mg/dL >40 [facility] Comment on above: National Cholesterol Education Program (NCEP) guidelines:<40 mg/dL: Low HDL-cholesterol (major risk factor for CHD)>= 60 mg/dL: High HDL-cholesterol (negative risk factor for CHD)HDL-cholesterol is affected by a number of factors, e.g. smoking, exercise, hormones, sex and age. Serum or plasma cholesterol measurement (mass/volume)Ordered By: Edilberto Loza 01-14-2025 Cholesterol [Mass/Vol] 201 mg/dL <201 [facility] Comment on above: Cholesterol level, D esirable <200 mg/dLBorderline high cholesterol 200-239 mg/dLHigh cholesterol >=240 mg/dLRecommendations of the NCEP Adult Treatment Panel for the following risk-cutoff thresholds for the [place] population. Serum or plasma urea nitroge n measurement (mass/volume)Ordered By: Edilberto Loza 01-14-2025 Urea nitrogen [Mass/Vol] 16 mg/dL 4-19 [facility] Sodium levelOrdered By: Edilberto Loza on 01-14-2025 Sodium [Moles/Vol] 140 mmol/L 133-145 [facility] TSH DL <= 0.005 mIU/L QnOrde red By: Edilberto Loza on 01-14-2025 Thyroid Stimulating Hormone (TSH) 0.654 uIU/mL 0.300-4.20 0 [facility] TSH Qn 0.654 uIU/mL 0.300-4.20 0 [facility] Thyroid Stim Hormone (TSH)on 01-14-2025 TSH 0.654 uIU/mL Normal 0.300-4.20 0 [facility] Comment on above: Performed By: #### L 500.4050, L501.9520, L500.4100, L100.0100 #### [facility] [address] [place], [place], [id number] Total proteinOrdered By: Edilberto Loza on 01-14-2025 Protein [Mass/Vol] 7.9 g/dL 5.9-8.4 [facility] Triglycerides measurementOrd ered By: Edilberto Loza on 01-14-2025 Triglyceride [Mass/Vol] 107 mg/dL <199 [facility] Comment on above: The drugs N-Acetylcy steine and Metamizole may falsely depress this assay. Normal range: <150 mg/dLBorderline High: 150-199 mg/dLHigh: 200-499 mg/dLVery High: >500 mg/dL White blood cell (WBC) count Ordered By: Edilberto Loza on 01-14-2025 WBC (Bld) [#/Vol] 7.1 10*3/uL 4.4-11.0 [facility] PT D/C Summary (1)on 025 PT D/C Summary (1) [facility] Physical Therapy [address] [place] [address] / REHABILITATION SERVICES DISCHARGE SUMMARY MR#: [id number] Acct: [id number] Name: ONEILLJAIME ORTIZ SILVER Rep #: [id number] : 1965 58 From: Long Page PT, Cert. MD [place], OCS Referring Dr.: Dr. Edilberto Loza MD Status: REG RCR Insurance: [facility] 09/11/18 SELF PAY INSURANCE Discharge Summary D/C summary: It has been my pleasure to treat JAIME ONEILL referred by Dr. Edilberto Loza MD, with the diagnosis of LOW BACK PAIN ,LUMBAR RADICULOPATHY for a total of 13 visit(s). Discharge Date: Please see the following information for a summary of their discharge status. Subjective Subjective: Patient HEP are helpling ,pain is soreness especially in legs Back is better Patient will try ex;s on own and will return in 3 weeks Pain Bilateral Back: Pain Intensity (Out of 10): 2 Left Buttocks: Pain Intensity (Out of 10): 0 Overall Improvement % Improvement: 75 Objective Objective/Function: Patient making progress but pain in legs POSTURE: mild forward posture GAIT: reciprocal pattern PALAPTION: unremarkable MMT: quads/hams 4/5 ,hip flexion 4/5 ,ankle 4/5 LUMBAR ROM: flexion min los ,extension WFL ,side glides min loss FLEXABILITY : hamstrings min tight Goals Goal 1:: Patient to be I with HEP for back Goal Progress: Progressing Goal 2:: Patient to improve lumbar ROM for function for ADL and housework tasks Goal Progress: Progressing Goal 3:: Patient to demonstrate 80% improvement with improve function and ADL( new goal) Goal Progress: Progressing Goal 4:: Patient to improve back oswestry score by 5 points to improve QOL Goal 5:: Patient be able to walk and stand > 15mins for ADL and housework ( new goal) Plan Plan: D/C TO HEP D/C Information d/c sentence: If there are questions or concerns regarding this patient's physical therapy, please feel free to call me at [phone]. Thank you for the referral of this patient. Sincerely, Long Page, PT, Cert MDT, OCS Balance/Gait/Functional tests Balance/Special Test Scores Oswestry Low Back Score: 28 Improvement % Improvement: 75 11/12/24 1451 CC: Dr. Edilberto Loza MD JLA Signed Normal [facility] TSH QnOrdered By: Edilberto ramos 10-01-2024 Thyroid Stimulating Hormone (TSH) 0.390 uIU/mL 0.358-3.74 0 [facility] Thyroid Stim Hormone (TSH)on 10-01-2024 TSH 0.390 uIU/mL Normal 0.358-3.74 0 [facility] Comment on above: Performed By: #### L 501.9520 #### [facility] [address] [place], [address] Inital Evaluation (1) - PTon 08-31-2024 Inital Evaluation (1) - PT [facility] Physical Therapy [facility] [address] [place] [address] / REHABILITATION SERVICES INITIAL EVALUATION MR#: [id number] Acct: [id number] Name: JAIME ONEILL Rep #: [id number] : 1965 58 From: Long Page PT, Cert. T, OCS Referring Dr.: Dr. Edilberto Loza MD Status: REG [facility] Insurance: [employer] [place] SELF PAY INSURANCE Patient's Visit Information Visit Information Visit Information: JAIME ONEILL is a 58 year old F referred to Physical Therapy by Dr. Edilberto Loza MD with a diagnosis of LOW BACK PAIN ,LUMBAR RADICULOPATHY. Date of Evaluation: 08/31/24 Physical Therapist: oLng Page PT, Cert T, OCS Visit Plan Frequency: 2x /Week Duration: 4 Weeks Plan: PT INTERVENTIONS DLS ,POSTURAL EX'S ,FUNCTIONAL STRENGTHENING MODALITIES PRN AND POSTURE TRAINING, Subjective Subjective: This 58 y/o female presents to physical therapy with lumbar radiculopathy, Patient has had lumbar pain many years. Patient patient most recently 1 year with back and paresthesia in legs. Seen DR recommended PT and x-rays DDD and osteopenia. Recommended prednisone, Aggravating sitting ,standing 10mins ,walking 2 mins and unable bend and lift. Alleviating rest. Coughing/sneezing-. Bowel/bladder -. Patient has h/o compression fx thoracic. Patient mcnair had pain management in past, Patient pain affects sleeping .Patient located symmetrical LBP described as ache. Patient condition affects QOL and function/housework tasks. SOCAIL: VOCATION: Disability Pain Bilateral Back: Pain Intensity (Out of 10): 8 Pain Intensity Range: 10 Objective Objective: POSTURE: mild forward posture GAIT: reciprocal pattern PALAPTION: unremarkable MMT: quads/hams 4/5 ,hip flexion 4-/5 ,ankle 4/5 LUMBAR ROM: flexion min los ,extension mod loss ,side glides min loss FLEXABILITY : hamstrings min tight Special Tests L/S Slump test left side: Negative L/S Slump test right side: Negative L/S Left Straight Leg Raise: Negative L/S Right Straight Leg Raise: Negative Lumbar Standing: Flexion - Mechanical Response: No effect Lumbar Standing: Flexion - Symptoms During Testing: Increases Lumbar Standing: Flexion - Symptoms After Testing: No worse Lumbar Standing: Extension - Mechanical Response: No effect Lumbar Standing: Extension - Symptoms During Testing: Increases Lumbar Standing: Extension - Symptoms After Testing: No worse Lumbar Standing: Right Side Glides - Mechanical Response: No effect Lumbar Standing: Right Side [place] - Symptoms During Testing: No effect Lumbar Standing: Right Side [place] - Symptoms After Testing: No effect Lumbar Standing: Left Side [place] - Mechanical Response: No effect Lumbar Standing: Left Side [place] - Symptoms During Testing: No effect Lumbar Standing: Left Side [place] - Symptoms After Testing: No effect Lumbar Lying: Flexion - Mechanical Response: No effect Lumbar Lying: Flexion - Symptoms During Testing: Increases Lumbar Lying: Flexion - Symptoms After Testing: No worse Comments:: NT Balance/Special Test Scores Oswestry Low Back Score: 28 Goals Goal 1:: Patient to be I with HEP for back Goal Time Frame: 4-6 Weeks Goal 2:: Patient to improve lumbar ROM for function for ADL and housework tasks Goal Time Frame: 4-6 Weeks Goal 3:: Patient to demonstrate 50% improvement with improve function and ADL Goal Time Frame: 4-6 Weeks Goal 4:: Patient to improve back oswestry score by 5 points to improve QOL Goal Time Frame: 4-6 Weeks Goal 5:: Patient be able to walk and stand > 10mins for ADL and housework Goal Time Frame: 4-6 Weeks Rehabilitation Potential Physical Therapy Diagnosis: This patient has lumbar pain with h/o compression fx thoracic with pain worse with positioning and motioning testing thus benefit from skilled PT Rehabilitation Potential: Good Anticipated Interventions Patient/Client Instruction: Educate patient on: Condition and Plan of Care For the Purpose of:: To decrease pain, To increase ROM, To increase oxygenation perfusion, To improve ability to perform ADL's, To increase tolerance to activity/condition/position , To improve ability of physical actions for home/community/work/leisure , To improve health of tissue, To decrease soft tissue restriction, To increase flexibility/ROM, To improve endurance and To prevent re-injury Therapeutic Exercise to Include: Strength training, Power training, Flexibilty training, Passive ROM and Dynamic Lumbar Stabilization Comment: BLE For the Purpose of:: To decrease pain, To increase ROM, To improve muscle performance and motor function, To increase tolerance to activity/condition/position , To improve ability of physical actions for home/community/work/leisure , To improve gait and locomotor functions, To improve health of tissue, To decrease soft tissue restriction and To incr (more content not included)... Normal [facility] Thyroid Stim Hormone (TSH)on 08-13-2024 TSH 0.184 uIU/mL Low 0.358-3.74 0 [facility] Comment on above: Performed By: #### L 501.9520 #### [facility] [place], [address] XR SPINE LUMBOSACRAL 2 OR 3 VIEWSon 03-17-2023 XR SPINE LUMBOSACRAL 2 OR 3 VIEWS ORIGINAL EXAMINATION: 3 XRAY VIEWS OF THE LUMBAR SPINE 03/16/2023 1:08 pm COMPARISON: None. HISTORY: ORDERING SYSTEM PROVIDED HISTORY: Reason for Exam: PAIN FINDINGS: There are 5 lumbar vertebrae. The lumbar spine alignment is normal. The vertebral bodies are normal in height with no fracture. The intervertebral disc spaces are maintained. There is mild degenerative narrowing of facet joints at L4-L5 and L5-S1. There is no spondylolysis. Sacroiliac joints are normal. IMPRESSION: Mild degenerative facet joint disease in lower lumbar spine. No subluxation or fracture. Interpreted by: Titus Dorado MD Preliminary Report By: Titus Dorado MD Electronically signed By Titus Dorado MD Dictated Date: 03/17/2023 5:58:49 AM Prelim Date: 03/17/2023 6:01:08 AM Sign Date: 03/17/2023 6:01:08 AM Ordering Provider: ESTEPHANIA REEDER [facility] ([place]) Absolute lymphocyte counton 03-26-2022 Lymphocytes Auto (Unsp spec) [#/Vol] 2.20 10*3/uL 0.83-4.51 [facility] Work Phone: Basophil percentageon 2021 Basophils/100 WBC (Bld) 0.9 % 0-1 [facility] Work Phone: Bilirubin [Mass/Vol] 0.30 mg/dL 0.20-1.00 [facility] Work Phone: Comment on above: For patients on eltr ombopag therapy, use of Dimension [place] TBIL is not recommended. Chloride [Moles/Vol] 103 mmol/L 98-107 [facility] Work Phone: Eosinophils/100 WBC (Bld) 5.0 % 0-5 [facility] Work Phone: Glucose [Mass/Vol] 91 mg/dL 74-106 [facility] Work Phone: Neutrophils (Bld) [#/Vol] 3.1 10*3/uL 2.0-7.7 [facility] Work Phone: Neutrophils/100 WBC (Bld) 48.6 % 47-70 [facility] Work Phone: Potassium [Moles/Vol] 4.3 mmol/L 3.5-5.1 [facility] Work Phone: Protein [Mass/Vol] 7.7 g/dL 6.4-8.2 [facility] Work Phone: Sodium [Moles/Vol] 137 mmol/L 136-145 [facility] Work Phone: WBC (Bld) [#/Vol] 6.4 10*3/uL 4.4-11.0 [facility] Work Phone: Blood erythrocytes count (nu mber/volume)on 03-26-2022 RBC (Bld) [#/Vol] 4.12 10*6/uL 4.2-5.4 [facility] Work Phone: Blood hemoglobin measurement (mass/volume)on 03-26-2022 Hemoglobin (Bld) [Mass/Vol] 12.2 g/dL 12.0-15.0 [facility] Work Phone: Blood lymphocytes/100 leukoc yteson 03-26-2022 Lymphocytes/100 WBC (Bld) 34.6 % 19-41 [facility] Work Phone: Blood monocytes/100 leukocyt eson 03-26-2022 Monocytes/100 WBC (Bld) 10.4 % 0-10 [facility] Work Phone: Blood platelet mean volumeon 03-26-2022 Platelet mean volume (Bld) [Entitic vol] 11.1 fL 6.2-12.0 [facility] Work Phone: Culture, urineon 03-26-2022 Bacteria identified Cx Nom (U) Positive [facility] Work Phone: Determination of erythrocyte mean corpuscular volume (MCV)on 03-26-2022 MCV (RBC) [Entitic vol] 92.7 fL 81-99 [facility] Work Phone: Hematocrit Auto (Bld) [Volum e fraction]on 03-26-2022 Hematocrit (Bld) [Volume fraction] 38.2 % 37-47 [facility] Work Phone: Laboratory - Chemistry and C hemistry - challengeon 03-26-2022 ALP [Catalytic activity/Vol] 88 U/L 45-117 [facility] Work Phone: ALT [Catalytic activity/Vol] 46 U/L 13-56 [facility] Work Phone: CO2 [Moles/Vol] 29.0 mmol/L 21.0-32.0 [facility] Work Phone: Globulin (S) [Mass/Vol] 3.9 g/dL 2.2-4.2 [facility] Work Phone: Urea nitrogen/Creatinine [Mass ratio] 22.0 mg/mg 10-20 [facility] Work Phone: Laboratory - Hematology and Cell countson 03-26-2022 Erythrocyte distribution width (RBC) [Entitic vol] 44.4 fL 35.1-43.9 [facility] Work Phone: Erythrocyte distribution width (RBC) [Ratio] 13.1 % 11.6-14.6 [facility] Work Phone: Immature granulocytes/100 WBC (Bld) 0.500 % 0.0-0.9 [facility] Work Phone: Comment on above: IG% - Immature Granu locytes (promyelocytes, myelocytes and metamyelocytes) > 1% indicates that a LEFT SHIFT is Present. MCH (RBC) [Entitic mass] 29.6 pg 27.0-32.0 [facility] Work Phone: Nucleated RBC/100 WBC (Bld) [Ratio] 0 % 0-5 [facility] Work Phone: MCHC Auto (RBC) [Mass/Vol]on 03-26-2022 MCHC (RBC) [Mass/Vol] 31.9 g/dL 32-36 [facility] Work Phone: No Panel Informationon 03-26 Estimated GFR (MDRD) Amer 77 mL/min >60 [facility] Work Phone: Comment on above: GFR Calc Estimated GFR (MDRD) Non-Af Amer 64 mL/min >60 [facility] Work Phone: Comment on above: Non- GFR Calc Thyroid Stimulating Hormone (TSH) 2.99 uIU/mL 0.358-3.74 [facility] Work Phone: Vitamin D 25-Hydroxy 25.6 ng/mL [facility] Work Phone: Comment on above: Vitamin D 25(OH) Sta tus Range Deficiency <20 ng/mL (50nmol/L) Insufficiency 20 - 30 ng/mL (50 - 75 nmol/L) Sufficiency 30 - 100 ng/mL (75 - 250 nmol/L) Toxicity >100 ng/mL (>250 nmol/L) Platelets bldon 03-26-2022 Platelets (Bld) [#/Vol] 261 10*3/uL 150-450 [facility] Work Phone: Serum or plasma albumin milena urement (mass/volume)on 03-26-2022 Albumin [Mass/Vol] 3.8 g/dL 3.2-5.0 [facility] Work Phone: Serum or plasma albumin/glob ulin mass ratioon 03-26-2022 Albumin/Globulin [Mass ratio] 1.0 {ratio} 0.9-2.4 [facility] Work Phone: Serum or plasma calcium milena urement (mass/volume)on 03-26-2022 Calcium [Mass/Vol] 9.2 mg/dL 8.5-10.1 [facility] Work Phone: Serum or plasma creatinine m easurement (mass/volume)on 03-26-2022 Creatinine [Mass/Vol] 0.96 mg/dL 0.55-1.02 [facility] Work Phone: Comment on above: The validity of the calculated GFR & GFRAA in patients over 70 years has not been determined. Clinical correlation is essential. Serum or plasma urea nitroge n measurement (mass/volume)on 03-26-2022 Urea nitrogen [Mass/Vol] 21 mg/dL 7-18 [facility] Work Phone: Thin prep Papanicolaou smear with manual screeningon 03-26-2022 Thin prep Papanicolaou smear with manual screening 30 U/L 15-37 [facility] Work Phone: Thin prep Papanicolaou smear with manual screening 5 5-15 [facility] Work Phone: Basic Metabolic Panelon 01-09 Anion gap 7 mmol/L Normal [facility] [employer] [facility] Comment on above: Performed By: #### H EMDF, BMP3 ####The performing lab is in the report. Calcium 8.2 mg/dL Low 8.4-10.2 [facility] Comment on above: Performed By: #### H WILDF, BMP3 ####The performing lab is in the report. CO2 26 mmol/L Normal 22-30 [facility] Comment on above: Performed By: #### H WILDF, BMP3 ####The performing lab is in the report. Glucose mass conc 89 mg/dL Normal 70-100 [facility] Comment on above: Performed By: #### H WILDF, BMP3 ####The performing lab is in the report. Urea nitrogen 15 mg/dL Normal 7-20 [facility] Comment on above: Performed By: #### H WILDF, BMP3 ####The performing lab is in the report. Creatinine 0.62 mg/dL Normal 0.52-1.25 [facility] Comment on above: Performed By: #### H WILDF, BMP3 ####The performing lab is in the report. eGFR (black) mL/min/{1.73_m2} Normal >60 [facility] Comment on above: Performed By: #### H WILDF, BMP3 ####The performing lab is in the report. eGFR (non-black) mL/min/{1.73_m2} Normal >60 [facility] Comment on above: Result Comment: Sour ce- MDRD equation with creatinine calibration to IDMS(NKDEP)eGFR not recommended for drug dose adjustment Performed By: #### H WILDF, BMP3 ####The performing lab is in the report. Chloride 105 mmol/L Normal 98-107 [facility] Comment on above: Performed By: #### H WILDF, BMP3 ####The performing lab is in the report. Potassium molar conc 3.8 mmol/L Normal 3.5-5.1 [facility] Comment on above: Performed By: #### H WILDF, BMP3 ####The performing lab is in the report. Sodium 138 mmol/L Normal 137-145 [facility] Comment on above: Performed By: #### H WILDF, BMP3 ####The performing lab is in the report. Anion gap 6 mmol/L Normal [facility] Comment on above: Performed By: #### H EMDF, PT/AP, BMP3, MG3, PHOS3 ####The performing lab is in the report. Calcium 8.6 mg/dL Normal 8.4-10.2 [facility] Comment on above: Performed By: #### H EMDF, PT/AP, BMP3, MG3, PHOS3 ####The performing lab is in the report. CO2 28 mmol/L Normal 22-30 [facility] Comment on above: Performed By: #### H EMDF, PT/AP, BMP3, MG3, PHOS3 ####The performing lab is in the report. Glucose mass conc 102 mg/dL High 70-100 [facility] Comment on above: Performed By: #### H EMDF, PT/AP, BMP3, MG3, PHOS3 ####The performing lab is in the report. Urea nitrogen 14 mg/dL Normal 7-20 [facility] Comment on above: Performed By: #### H EMDF, PT/AP, BMP3, MG3, PHOS3 ####The performing lab is in the report. Creatinine 0.63 mg/dL Normal 0.52-1.25 [facility] Comment on above: Performed By: #### H EMDF, PT/AP, BMP3, MG3, PHOS3 ####The performing lab is in the report. eGFR (black) mL/min/{1.73_m2} Normal >60 [facility] Comment on above: Performed By: #### H EMDF, PT/AP, BMP3, MG3, PHOS3 ####The performing lab is in the report. eGFR (non-black) mL/min/{1.73_m2} Normal >60 [facility] Comment on above: Result Comment: Sour ce- MDRD equation with creatinine calibration to IDMS(NKDEP)eGFR not recommended for drug dose adjustment Performed By: #### H EMDF, PT/AP, BMP3, MG3, PHOS3 ####The performing lab is in the report. Potassium molar conc 3.7 mmol/L Normal 3.5-5.1 [facility] Comment on above: Performed By: #### H EMDF, PT/AP, BMP3, MG3, PHOS3 ####The performing lab is in the report. Sodium 140 mmol/L Normal 137-145 [facility] Comment on above: Performed By: #### H EMDF, PT/AP, BMP3, MG3, PHOS3 ####The performing lab is in the report. Chloride 106 mmol/L Normal 98-107 [facility] Comment on above: Performed By: #### H EMDF, PT/AP, BMP3, MG3, PHOS3 ####The performing lab is in the report. Drugs of Abuseon 01-21-2018 Oxycodone/Oxymorphine, Ur Negative [facility] Comment on above: Performed By: #### D RGA4 ####The performing lab is in the report. Phencyclidine (PCP), Ur Negative [facility] Comment on above: Result Comment: The expected value for all of the drugs listedabove is Negative.The following drugs or drug groups have been screenedfor by Immunoassay at the following thresholds:Amphetamine class (1000 ng/mL), Barbiturates (200 ng/mL),Benzodiazepines (200 ng/mL), Cocaine (300 ng/mL),Methadone (300 ng/mL), Opiates (300 ng/mL),Oxycodone (100 ng/mL), and PCP (25 ng/mL).NOTE: These results are for medical treatment only.Analysis performed using non-forensic procedures. Performed By: #### D RGA4 ####The performing lab is in the report. Methadone, Ur Negative [facility] Comment on above: Performed By: #### D RGA4 ####The performing lab is in the report. Opiates, Ur Positive [facility] Comment on above: Performed By: #### D RGA4 ####The performing lab is in the report. Benzodiazepines, Ur Negative [facility] Comment on above: Performed By: #### D RGA4 ####The performing lab is in the report. Cocaine, Ur Negative [facility] Comment on above: Performed By: #### D RGA4 ####The performing lab is in the report. Barbiturates, Ur Negative [facility] Comment on above: Performed By: #### D RGA4 ####The performing lab is in the report. Amphetamines, Ur Negative Normal [facility] Comment on above: Performed By: #### D RGA4 ####The performing lab is in the report. Hemogram w/ Autodiffon 01-21 Abs Baso Cnt 0.0 10*3/uL Normal 0.0-0.2 [facility] Comment on above: Performed By: #### H EMDF, BMP3 ####The performing lab is in the report. Basophils/100 WBC Auto (Bld) 0.4 % Normal 0.0-2.0 [facility] Comment on above: Performed By: #### H EMDF, BMP3 ####The performing lab is in the report. Eosinophils 0.2 10*3/uL Normal 0.0-0.5 [facility] Comment on above: Performed By: #### H WILDF, BMP3 ####The performing lab is in the report. Eosinophils/100 leukocytes 2.4 % Normal 1.0-6.0 [facility] Comment on above: Performed By: #### H EMDF, BMP3 ####The performing lab is in the report. Erythrocyte distribution width Auto Ratio (RBC) 13.5 % Normal 11.5-14.5 [facility] Comment on above: Performed By: #### H EMDF, BMP3 ####The performing lab is in the report. Erythrocytes (RBC) 4.11 10*6/uL Normal 3.80-5.20 [facility] Comment on above: Performed By: #### H EMDF, BMP3 ####The performing lab is in the report. Granulocytes/100 WBC (Bld) 70.0 % Normal 40.0-80.0 [facility] Comment on above: Performed By: #### H EMDF, BMP3 ####The performing lab is in the report. Hematocrit (HCT) 37.4 % Normal 35.0-47.0 [facility] Comment on above: Performed By: #### H EMDF, BMP3 ####The performing lab is in the report. Hemoglobin mass conc (Bld) 12.4 g/dL Normal 11.7-16.0 [facility] Comment on above: Performed By: #### H EMDF, BMP3 ####The performing lab is in the report. Lymphocytes 1.7 10*3/uL Normal 1.0-4.3 [facility] Comment on above: Performed By: #### H EMDF, BMP3 ####The performing lab is in the report. Lymphocytes/100 leukocytes 18.6 % Low 20.0-40.0 [facility] Comment on above: Performed By: #### H EMDF, BMP3 ####The performing lab is in the report. MCH 30.1 pg Normal 26.0-34.0 [facility] Comment on above: Performed By: #### H EMDF, BMP3 ####The performing lab is in the report. MCHC mass conc (RBC) 33.0 % Normal 32.0-36.0 [facility] Comment on above: Performed By: #### H EMDF, BMP3 ####The performing lab is in the report. MCV 91.1 fL Normal 79.0-98.0 [facility] Comment on above: Performed By: #### H EMDF, BMP3 ####The performing lab is in the report. Monocytes 0.8 10*3/uL Normal 0.0-0.8 [facility] Comment on above: Performed By: #### H EMDF, BMP3 ####The performing lab is in the report. Monocytes/100 leukocytes 8.6 % Normal 2.0-10.0 [facility] Comment on above: Performed By: #### H EMDF, BMP3 ####The performing lab is in the report. Neutrophils 6.4 10*3/uL Normal 1.8-7.0 [facility] Comment on above: Performed By: #### H EMDF, BMP3 ####The performing lab is in the report. Platelet mean volume (PMV) 9.1 fL Normal 7.4-10.4 [facility] Comment on above: Performed By: #### H EMDF, BMP3 ####The performing lab is in the report. Platelets 214 10*3/uL Normal 140-440 [facility] Comment on above: Performed By: #### H EMDF, BMP3 ####The performing lab is in the report. WBC (Leukocytes) 9.2 10*3/uL Normal 3.6-10.7 [facility] Comment on above: Performed By: #### H EMDF, BMP3 ####The performing lab is in the report. Magnesiumon 01-21-2018 Magnesium 1.9 mg/dL Normal 1.6-2.3 [facility] Comment on above: Performed By: #### H EMDF, PT/AP, BMP3, MG3, PHOS3 ####The performing lab is in the report. Phosphoruson 01-21-2018 Phosphate 3.2 mg/dL Normal 2.5-4.5 [facility] Comment on above: Performed By: #### H EMDF, PT/AP, BMP3, MG3, PHOS3 ####The performing lab is in the report. Protimeon 01-21-2018 aPTT 25.7 s Normal 20.0-30.5 [facility] Comment on above: Result Comment: NOTE : The therapeutic time for Heparin anticoagulation,based on Xa activity inhibition, is an APTT of 46-80seconds. Performed By: #### H EMDF, PT/AP, BMP3, MG3, PHOS3 ####The performing lab is in the report. INR Coag RelTime (PPP) 0.9 {INR} Normal 0.9-1.1 [facility] Comment on above: Result Comment: Randy mmended Anticoagulant Therapy:SEE BELOW----- INR of 2.0 - 3.0 :- Prophylaxis of Venous Thrombosis (high-risk surgery)- Treatment of Venous Thrombosis- Treatment of Pulmonary Embolism (Includes tissue heartvalves, Acute Myocardial Infarction to prevent systemicembolism, Valvular Heart Disease, and Atrial Fibrillation)----- INR of 2.5 - 3.5 :- Mechanical Prosthetic Valves (high risk)- If oral anticoagulant therapy is used to preventMyocardial Infarction Performed By: #### H EMDF, PT/AP, BMP3, MG3, PHOS3 ####The performing lab is in the report. Prothrombin time (PT) Coag time (PPP) 9.5 s Normal 9.0-12.0 [facility] Comment on above: Result Comment: . Performed By: #### H EMDF, PT/AP, BMP3, MG3, PHOS3 ####The performing lab is in the report. TS GELon 01-21-2018 TS GEL ABO Group: O Rh, Gel: NEG Antibody Screen Gel: NEG Normal [facility] Comment on above: Performed By: #### T SGL ####[place] [address] Urinalysis,Macroon 8 Bilirubin (direct) Negative Normal Negative [facility] Comment on above: Performed By: #### U AMAC ####The performing lab is in the report. Ketone,Urine Trace Normal Negative [facility] Comment on above: Performed By: #### U AMAC ####The performing lab is in the report. Occult Blood,Ur 25 {RBC}/uL Normal Negative [facility] Comment on above: Performed By: #### U AMAC ####The performing lab is in the report. Specific Atkins,Urine 1.020 Normal 1.005 -1.03 0 [facility] Comment on above: Performed By: #### U AMAC ####The performing lab is in the report. Total Protein,Urine Negative Normal Negative [facility] Comment on above: Performed By: #### U AMAC ####The performing lab is in the report. Urine, appearance clear Normal Clear [facility] Comment on above: Performed By: #### U AMAC ####The performing lab is in the report. Urine, color yellow Normal Lt. Yellow [facility] Comment on above: Performed By: #### U AMAC ####The performing lab is in the report. Urine, glucose presence NORM Normal Negative [facility] Comment on above: Performed By: #### U AMAC ####The performing lab is in the report. Urine, nitrite presence Negative Normal Negative [facility] Comment on above: Performed By: #### U AMAC ####The performing lab is in the report. Urine, pH 7.0 [pH] Normal 5.0-8.0 [facility] Comment on above: Performed By: #### U AMAC ####The performing lab is in the report. Urine, urobilinogen NORM Normal 0-1 [facility] Comment on above: Performed By: #### U AMAC ####The performing lab is in the report. WBC (Leukocytes) Negative Normal Negative [facility] Comment on above: Performed By: #### U AMAC ####The performing lab is in the report. CR Chest 1 View Frontalon CR Chest 1 View Frontal Patient Name: JAIME ONEILL Diagnostic Radiology Exam Date/Time 01/20/2018 21:38:42 EDT Exam CR Chest 1 View Frontal Ordering Physician MD IVY CRAIG Accession Number [id number] CPT4 Codes 52750 () Reason For Exam Trauma Report HISTORY: Right shoulder pain radiates to neck , trauma Three views right shoulder show changes of calcific tendinitis with no fracture identified. Frontal view of the chest is negative Report Dictated on Final Dictated: 01/20/2018 9:48 pm Dictating Physician: MD FRANCO WILLIAM Signed Date and Time: 01/20/2018 9:50 pm Signed by: MD FRANCO WILLIAM Transcribed Date and Time: 01/20/2018 9:48 Normal [facility] CR Shoulder 2+ Views Righton 01-20-2018 CR Shoulder 2+ Views Right Patient Name: JAIME ONEILL Diagnostic Radiology Exam Date/Time 01/20/2018 21:38:29 EDT Exam CR Shoulder 2+ Views Right Ordering Physician DO COLBERT DORSEY R Accession Number [id number] CPT4 Codes 84586 () Reason For Exam pain Report HISTORY: Right shoulder pain radiates to neck , trauma Three views right shoulder show changes of calcific tendinitis with no fracture identified. Frontal view of the chest is negative Report Dictated on Final Dictated: 01/20/2018 9:48 pm Dictating Physician: MD FRANCO WILLIAM Signed Date and Time: 01/20/2018 9:50 pm Signed by: MD FRANCO WILLIAM Transcribed Date and Time: 01/20/2018 9:48 Normal [facility] Hemogram w/ Autodiffon 01-20 Abs Baso Cnt 0.1 10*3/uL Normal 0.0-0.2 [facility] Comment on above: Performed By: #### H EMDF, PT/AP, BMP3, MG3, PHOS3 ####The performing lab is in the report. Basophils/100 WBC Auto (Bld) 0.8 % Normal 0.0-2.0 [facility] Comment on above: Performed By: #### H EMDF, PT/AP, BMP3, MG3, PHOS3 ####The performing lab is in the report. Eosinophils 0.2 10*3/uL Normal 0.0-0.5 [facility] Comment on above: Performed By: #### H EMDF, PT/AP, BMP3, MG3, PHOS3 ####The performing lab is in the report. Eosinophils/100 leukocytes 1.7 % Normal 1.0-6.0 [facility] Comment on above: Performed By: #### H EMDF, PT/AP, BMP3, MG3, PHOS3 ####The performing lab is in the report. Erythrocyte distribution width Auto Ratio (RBC) 13.1 % Normal 11.5-14.5 [facility] Comment on above: Performed By: #### H EMDF, PT/AP, BMP3, MG3, PHOS3 ####The performing lab is in the report. Erythrocytes (RBC) 4.16 10*6/uL Normal 3.80-5.20 [facility] Comment on above: Performed By: #### H EMDF, PT/AP, BMP3, MG3, PHOS3 ####The performing lab is in the report. Granulocytes/100 WBC (Bld) 70.8 % Normal 40.0-80.0 [facility] Comment on above: Performed By: #### H EMDF, PT/AP, BMP3, MG3, PHOS3 ####The performing lab is in the report. Hematocrit (HCT) 37.4 % Normal 35.0-47.0 [facility] Comment on above: Performed By: #### H EMDF, PT/AP, BMP3, MG3, PHOS3 ####The performing lab is in the report. Hemoglobin mass conc (Bld) 12.7 g/dL Normal 11.7-16.0 [facility] Comment on above: Performed By: #### H EMDF, PT/AP, BMP3, MG3, PHOS3 ####The performing lab is in the report. Lymphocytes 1.8 10*3/uL Normal 1.0-4.3 [facility] Comment on above: Performed By: #### H EMDF, PT/AP, BMP3, MG3, PHOS3 ####The performing lab is in the report. Lymphocytes/100 leukocytes 16.8 % Low 20.0-40.0 [facility] Comment on above: Performed By: #### H EMDF, PT/AP, BMP3, MG3, PHOS3 ####The performing lab is in the report. MCH 30.4 pg Normal 26.0-34.0 [facility] Comment on above: Performed By: #### H EMDF, PT/AP, BMP3, MG3, PHOS3 ####The performing lab is in the report. MCHC mass conc (RBC) 33.9 % Normal 32.0-36.0 [facility] Comment on above: Performed By: #### H EMDF, PT/AP, BMP3, MG3, PHOS3 ####The performing lab is in the report. MCV 89.8 fL Normal 79.0-98.0 [facility] Comment on above: Performed By: #### H EMDF, PT/AP, BMP3, MG3, PHOS3 ####The performing lab is in the report. Monocytes 1.1 10*3/uL High 0.0-0.8 [facility] Comment on above: Performed By: #### H EMDF, PT/AP, BMP3, MG3, PHOS3 ####The performing lab is in the report. Monocytes/100 leukocytes 9.9 % Normal 2.0-10.0 [facility] Comment on above: Performed By: #### H EMDF, PT/AP, BMP3, MG3, PHOS3 ####The performing lab is in the report. Neutrophils 7.8 10*3/uL High 1.8-7.0 [facility] Comment on above: Performed By: #### H EMDF, PT/AP, BMP3, MG3, PHOS3 ####The performing lab is in the report. Platelet mean volume (PMV) 9.2 fL Normal 7.4-10.4 [facility] Comment on above: Performed By: #### H EMDF, PT/AP, BMP3, MG3, PHOS3 ####The performing lab is in the report. Platelets 213 10*3/uL Normal 140-440 [facility] Comment on above: Performed By: #### H EMDF, PT/AP, BMP3, MG3, PHOS3 ####The performing lab is in the report. WBC (Leukocytes) 11.0 10*3/uL High 3.6-10.7 [facility] Comment on above: Performed By: #### H EMDF, PT/AP, BMP3, MG3, PHOS3 ####The performing lab is in the report. Vital Signs Date Time Vital Sign Value Performing Clinician Darrel cyr 07-05-2025 08:35-0400 Body height 165.1 cm [employer] Work Phone: [employer] 07-05-2025 08:35-0400 Body mass index (BMI) [Ratio] 41.04 kg/m2 [employer] Phone: [employer] 07-05-2025 08:35-0400 Body temperature 97.11 [degF] [employer] Work Phone: [employer] 07-05-2025 08:35-0400 Body weight 111.86 kg [employer] Work Phone: [employer] Comment on above: [facility] 07-05-2025 08:35-0400 Diastolic blood pressure 73 mm[Hg] [employer] Phone: [employer] 07-05-2025 08:35-0400 Heart rate 86 /min [employer] Phone: [employer] 07-05-2025 08:35-0400 SaO2% (BldA) [Mass fraction] 98 % Jordon Pozsgay DO Work Phone: [employer] 07-05-2025 08:35-0400 Systolic blood pressure 119 mm[Hg] Jordon Pozsgay DO Work Phone: [employer] 07-01-2025 12:22-0400 Body temperature 96.91 [degF] Jordon Pozsgay DO Work Phone: [employer] 07-01-2025 12:22-0400 Diastolic blood pressure 70 mm[Hg] Jordon Pozsgay DO Work Phone: [employer] 07-01-2025 12:22-0400 Heart rate 66 /min Jordon Pozsgay DO Work Phone: [employer] 07-01-2025 12:22-0400 Respiratory rate 17 /min Jordon Pozsgay DO Work Phone: [employer] 07-01-2025 12:22-0400 SaO2% (BldA) [Mass fraction] 95 % Jordon Pozsgay DO Work Phone: [employer] 07-01-2025 12:22-0400 Systolic blood pressure 125 mm[Hg] Jordon Pozsgay DO Work Phone: [employer] 06-30-2025 05:36-0400 Body height 165.1 cm Jordon Pozsgay DO Work Phone: [employer] 06-30-2025 05:36-0400 Body mass index (BMI) [Ratio] 42.43 kg/m2 Jordon Pozsgay DO Work Phone: [employer] 06-30-2025 05:36-0400 Body weight 115.67 kg Jordon Pozsgay DO Work Phone: [employer] 06-07-2025 09:08-0400 Body height 165.1 cm Jordon Pozsgay DO Work Phone: [employer] 06-07-2025 09:08-0400 Body mass index (BMI) [Ratio] 42.13 kg/m2 Jordon Pozsgay DO Work Phone: [facility] [employer] 06-07-2025 09:08-0400 Body temperature 97.5 [degF] Jordon Pozsgay DO Work Phone: [facility] [employer] 06-07-2025 09:08-0400 Body weight 114.85 kg Jordon Pozsgay DO Work Phone: [facility] [employer] 06-07-2025 09:08-0400 Diastolic blood pressure 79 mm[Hg] Jordon Pozsgay DO Work Phone: [facility] [employer] 06-07-2025 09:08-0400 Heart rate 73 /min Jordon Goodesgay DO Work Phone: [facility] [employer] 06-07-2025 09:08-0400 Systolic blood pressure 120 mm[Hg] Jordon Pozsgay DO Work Phone: [facility] [employer] 04-08-2025 13:00-0400 Body mass index (BMI) [Ratio] 41.5 kg/m2 Trish Bhatia [employer] Work Phone: [facility] [employer] 04-08-2025 13:00-0400 Body temperature 97.5 [degF] Trish Bhatia [employer] Work Phone: [facility] [employer] 04-08-2025 13:00-0400 Body weight 113.13 kg Trish Bhatia [employer] Work Phone: [facility] [employer] Comment on above: [facility] 04-08-2025 13:00-0400 Diastolic blood pressure 77 mm[Hg] Trish Bhatia [employer] Work Phone: [facility] [employer] 04-08-2025 13:00-0400 Heart rate 84 /min Trish Bhatia [employer] Work Phone: [facility] [employer] 04-08-2025 13:00-0400 Respiratory rate 19 /min Trish Bhatia [employer] Work Phone: [facility] [employer] 04-08-2025 13:00-0400 Systolic blood pressure 124 mm[Hg] Trish Bhatia [employer] Work Phone: [facility] 04-08-2025 10:34-0400 Body height 165.1 cm Jf Irwin APRN - [employer] Work Phone: [facility] [employer] 04-08-2025 10:34-0400 Body mass index (BMI) [Ratio] 41.44 kg/m2 Jf Irwin [employer] Work Phone: [facility] [employer] 04-08-2025 10:34-0400 Body weight 112.95 kg Jf Irwin APRN - [employer] Work Phone: [facility] [employer] 04-08-2025 10:34-0400 Diastolic blood pressure 82 mm[Hg] Jf Irwin APRN - [employer] Work Phone: [facility] [employer] 04-08-2025 10:34-0400 Heart rate 69 /min Jf Irwin APRN - [employer] Work Phone: [facility] [employer] 04-08-2025 10:34-0400 Systolic blood pressure 108 mm[Hg] Jf Irwin APRN - [employer] Work Phone: [facility] [employer] 03-25-2025 14:48-0400 Diastolic blood pressure 73 mm[Hg] Jordon Pozsgay DO Work Phone: [facility] [employer] 03-25-2025 14:48-0400 Heart rate 71 /min Jordon Pozsgay DO Work Phone: [facility] [employer] 03-25-2025 14:48-0400 Respiratory rate 18 /min Jordon Pozsgay DO Work Phone: [facility] [employer] 03-25-2025 14:48-0400 SaO2% (BldA) [Mass fraction] 98 % Jordon Pozsgay DO Work Phone: [facility] [employer] 03-25-2025 14:48-0400 Systolic blood pressure 133 mm[Hg] Jordon Santiago DO Work Phone: [facility] [employer] 03-25-2025 12:58-0400 Body height 165.1 cm Jordon Santiago DO Work Phone: [facility] [employer] 03-25-2025 12:58-0400 Body mass index (BMI) [Ratio] 41.1 kg/m2 Jordon Santiago DO Work Phone: [facility] [employer] 03-25-2025 12:58-0400 Body temperature 97.81 [degF] Jordon Santiago DO Work Phone: [facility] [employer] 03-25-2025 12:58-0400 Body weight 112.04 kg Jordon Santiago DO Work Phone: [facility] [employer] 03-10-2025 08:42-0400 Body height 165.1 cm Trish Bhatia [employer] Work Phone: [facility] [employer] Comment on above: [facility] 03-10-2025 08:42-0400 Body mass index (BMI) [Ratio] 41.17 kg/m2 Trish Bhatia [employer] Work Phone: [facility] 03-10-2025 08:42-0400 Body temperature 96.91 [degF] Trish Bhatia [employer] Work Phone: [facility] 03-10-2025 08:42-0400 Body weight 112.22 kg Trish Bhatia [employer] Work Phone: [facility] 03-10-2025 08:42-0400 Diastolic blood pressure 81 mm[Hg] Trish Bhatia [employer] Work Phone: [facility] 03-10-2025 08:42-0400 Heart rate 63 /min Trish Bhatia [employer] Work Phone: [facility] [employer] 03-10-2025 08:42-0400 Respiratory rate 16 /min Trish Bhatia [employer] Work Phone: [facility] [employer] 03-10-2025 08:42-0400 Systolic blood pressure 137 mm[Hg] Trish Bhatia [employer] Work Phone: [facility] [employer] 02-25-2025 09:48-0400 Body height 165.1 cm Wmi Schedule [facility] [employer] 02-25-2025 09:48-0400 Body mass index (BMI) [Ratio] 41.6 kg/m2 Wmi Schedule [facility] [employer] 02-25-2025 09:48-0400 Body weight 113.4 kg Wmi Schedule [facility] [employer] 02-19-2025 10:24-0400 Body height 165.1 cm Cricket Gerstenmaier PA-C Work Phone: [facility] [employer] 02-19-2025 10:24-0400 Body mass index (BMI) [Ratio] 41.77 kg/m2 Cricket Gerstenmaier PA-C Work Phone: [facility] [employer] 02-19-2025 10:24-0400 Body weight 113.85 kg Cricket Gerstenmaier PA-C Work Phone: [facility] [employer] 02-19-2025 10:24-0400 Diastolic blood pressure 75 mm[Hg] Cricket Gerstenmaier PA-C Work Phone: [facility] [employer] 02-19-2025 10:24-0400 Heart rate 76 /min Cricket Gerstenmaier PA-C Work Phone: [facility] [employer] 02-19-2025 10:24-0400 Respiratory rate 14 /min Cricket Gerstenmaier PA-C Work Phone: [facility] [facility] 02-19-2025 10:24-0400 SaO2% (BldA) [Mass fraction] 95 % Cricket Gerstenmaier PA-C Work Phone: [facility] [employer] Comment on above: 02-19-2025 10:24-0400 Systolic blood pressure 123 mm[Hg] Cricket Gerstenmaier PA-C Work Phone: [facility] [employer] 02-03-2025 10:41-0400 Body height 165.1 cm Trihs Bhatia LIBRARY MEDIA SPECIALIST - ERIN Work Phone: [facility] [employer] Comment on above: [facility] 02-03-2025 10:41-0400 Body mass index (BMI) [Ratio] 41.44 kg/m2 Trish Bhatia LIBRARY MEDIA SPECIALIST - DRY KILN BURNER Work Phone: [facility] 02-03-2025 10:41-0400 Body temperature 97.5 [degF] Trish Bhatia LIBRARY MEDIA SPECIALIST - DRY KILN BURNER Work Phone: [facility] [employer] 02-03-2025 10:41-0400 Body weight 112.95 kg Trish Bhatia LIBRARY MEDIA SPECIALIST - DRY KILN BURNER Work Phone: [facility] [employer] 02-03-2025 10:41-0400 Diastolic blood pressure 76 mm[Hg] Trish Bhatia LIBRARY MEDIA SPECIALIST - DRY KILN BURNER Work Phone: [facility] [employer] 02-03-2025 10:41-0400 Heart rate 94 /min Trish Bhatia LIBRARY MEDIA SPECIALIST - DRY KILN BURNER Work Phone: [facility] [employer] 02-03-2025 10:41-0400 Respiratory rate 18 /min Trish Bhatia LIBRARY MEDIA SPECIALIST - DRY K[place] BURNER Work Phone: [facility] [employer] 02-03-2025 10:41-0400 Systolic blood pressure 116 mm[Hg] rTish Bhatia LIBRARY MEDIA SPECIALIST - DRY KILN BURNER Work Phone: [facility] [employer] 01-25-2025 09:53-0400 Body height 165.1 cm Jordon Santiago DO Work Phone: [facility] [employer] 01-25-2025 09:53-0400 Body mass index (BMI) [Ratio] 41.54 kg/m2 Jordon Goodejamee BIGGS Work Phone: [facility] [employer] 01-25-2025 09:53-0400 Body temperature 97.5 [degF] Jordon Santiago Work Phone: [facility] [employer] 01-25-2025 09:53-0400 Body weight 113.22 kg Jordon Pozsgay DO Work Phone: [facility] [employer] 01-25-2025 09:53-0400 Diastolic blood pressure 86 mm[Hg] Jordon Pozsgay DO Work Phone: [facility] [employer] 01-25-2025 09:53-0400 Heart rate 84 /min Jordon Pozsgay DO Work Phone: [facility] [employer] 01-25-2025 09:53-0400 Respiratory rate 16 /min Jordon Pozsgay DO Work Phone: [facility] [employer] 01-25-2025 09:53-0400 Systolic blood pressure 137 mm[Hg] Jordon Pozsgay DO Work Phone: [facility] [employer] 07-28-2024 11:19-0400 Body mass index (BMI) [Ratio] 40.41 kg/m2 Karie Fistek LIBRARY MEDIA SPECIALIST-DRY KILN BURNER Work Phone: [facility] 07-28-2024 11:19-0400 Body weight 109.32 kg Karie Fistek LIBRARY MEDIA SPECIALIST-DRY KIL[employer] BURNER Work Phone: [facility] 02-19-2024 10:42-0400 Body height 164.5 cm Karie Fistek LIBRARY MEDIA SPECIALIST-DRY KILN BURNER Work Phone: [facility] 02-19-2024 10:42-0400 Body mass index (BMI) [Ratio] 41.25 kg/m2 Karie Fistek LIBRARY MEDIA SPECIALIST-DRY KILN BURNER Work Phone: [facility] 02-19-2024 10:42-0400 Body weight 111.58 kg Karie Fistek LIBRARY MEDIA SPECIALIST-DRY KILN BURNER Work Phone: [facility] 02-19-2024 10:42-0400 Diastolic blood pressure 79 mm[Hg] Karie Fistek LIBRARY MEDIA SPECIALIST-DRY KILN BURNER Work Phone: [facility] 02-19-2024 10:42-0400 Heart rate 82 /min Karie Fistek LIBRARY MEDIA SPECIALIST-DRY KILN BURNER Work Phone: [facility] 02-19-2024 10:42-0400 Systolic blood pressure 155 mm[Hg] Karie Fallon LIBRARY MEDIA SPECIALIST-DRY KILN BURNER Work Phone: [facility] 10-15-2023 09:25-0500 Body height 164.5 cm Karie Fistek LIBRARY MEDIA SPECIALIST-DRY KILN BURNER Work Phone: [facility] 10-15-2023 09:25-0500 Body mass index (BMI) [Ratio] 41.42 kg/m2 Karie Fallon LIBRARY MEDIA SPECIALIST-DRY KILN BURNER Work Phone: [facility] 10-15-2023 09:25-0500 Body weight 112.04 kg Karie Fistek LIBRARY MEDIA SPECIALIST-DRY KILN BURNER Work Phone: [facility] Comment on above: START WT: 256 IDEAL WT: 149 START EXCESS : 107TOTAL WT LOSS: 9 EWL: 8 % HT: 64.75 INCHES 10-15-2023 09:25-0500 Diastolic blood pressure 69 mm[Hg] Karie Alonsoek LIBRARY MEDIA SPECIALIST-DRY KILN BURNER Work Phone: [facility] 10-15-2023 09:25-0500 Heart rate 90 /min Karie Alonsoek LIBRARY MEDIA SPECIALIST-DRY KILN BURNER Work Phone: [facility] 10-15-2023 09:25-0500 Systolic blood pressure 120 mm[Hg] Karie Fistek LIBRARY MEDIA SPECIALIST-DRY KILN BURNER Work Phone: [facility] Encounters Encounter Date Encounter Type Care Provider Facility Start: 07-20-2025 ambulatory Edilberto Chi Dago Facility:[facility] Start: 07-17-2025 ambulatory Edilberto Chi Dago Facility:[facility] Start: 07-08-2025 End: 07-08-[address] Edilberto Loza MD Work Phone: [facility] Phy Office 3rd [facility] Start: 07-08-2025 End: 07-08-2025 ambulatory Edilberto Chi Dago Facility:[facility] Start: 07-05-2025 End: 07-05-2025 Postop follow up visit related to original px Jordon Santiago DO Work Phone: [facility] Saurabh Valle Comment on above: H/O gastric bypass ( Primary Dx); Deficiency of multiple nutrient elements; Deficiency of other specified B group vitamins; Morbid obesity with BMI of 40.0-44.9, adult (HCC); Gastroesophageal reflux disease without esophagitis Start: 07-05-2025 End: 07-05-2025 [facility] Start: 06-30-2025 End: 07-01-2025 Evaluation and management of inpatient Jordon Santiago DO Work Phone: [facility] Surgical Progressive Care Unit PCU H6 Comment on above: Obesity, morbid, BMI 40.0-49.9 (HCC) (Primary Dx); Morbid obesity with BMI of 40.0-44.9, adult (HCC); Postoperative pain Start: 06-22-2025 End: 06-22-2025 ambulatory [facility]cel [facility] Start: 06-07-2025 End: 06-07-2025 Office outpatient visit 25 minutes Jordon Santiago DO Work Phone: [facility] [employer] [facility]ab[facility] Comment on above: Morbid obesity with BMI of 40.0-44.9, adult (HCC) (Primary Dx); Gastroesophageal reflux disease without esophagitis; Hypothyroidism, unspecified type Start: 06-07-2025 End: 06-07-2025 [facility] Start: 05-25-2025 End: 05-25-2025 ambulatory Bbiiana Ramirez APRN - DRY KILN BURNER Work Phone: [facility] [place] Comment on above: Obesity, morbid, BMI 40.0-49.9 (HCC) (Primary Dx) Start: 05-11-2025 End: 05-25-2025 Telephone encounter Stephanie Vidal LPN [facility] [place] Comment on above: Surgery Scheduling ( [facility] SURGERY SCHEDULING) Start: 05-05-2025 Encounter for preprocedural laboratory examination [facility] Start: 04-30-2025 End: 04-30-[address] Edilberto Loza MD Work Phone: [facility] Work Phone: Start: 04-30-2025 End: 04-30-[address] Edilberto Loza MD Work Phone: -Laboratory Work Phone: Start: 04-30-2025 End: 04-30-2025 ambulatory [facility]il[facility]to [facility] Facility:[facility] Start: 04-20-2025 Encounter for other preprocedural examination DYLON FLEMING [facility] Start: 04-20-[address] Edilberto Loza MD Work Phone: -Radiology [facility] Work Phone: Start: 04-20-2025 ambulatory [facility] Facility:[facility] Start: 04-08-2025 End: 04-08-2025 Office outpatient visit 10 minutes Trish Bhatia LIBRARY MEDIA SPECIALIST - DRY KILN BURNER Work Phone: [facility] [place] Comment on above: Morbid obesity with BMI of 40.0-44.9, adult (HCC) (Primary Dx); Gastroesophageal reflux disease without esophagitis Start: 04-08-2025 End: 04-08-2025 ambulatory [employer] [facility] Start: 04-08-2025 End: 04-08-2025 Office outpatient new 30 minutes Jf Irwin LIBRARY MEDIA SPECIALIST - DRY KILN BURNER Work Phone: [facility] Cardiology - [place] Comment on above: Gastroesophageal ref lux disease without esophagitis; Morbid obesity with BMI of 40.0-44.9, adult (HCC); Hypothyroidism, unspecified type; Pre-op testing Start: 04-08-2025 End: 04-08-2025 Patient encounter status Jf Irwin LIBRARY MEDIA SPECIALIST - DRY KILN BURNER Work Phone: [facility] [employer] Start: 04-08-2025 End: 04-08-2025 ambulatory [facility] [facility] Start: 03-25-2025 End: 03-25-2025 ambulatory EDILBERTO-[employer] [facility] Start: 03-25-2025 End: 03-25-2025 Subsequent hospital visit by physician Jordon Santiago DO Work Phone: [facility] Comment on above: Gastro-esophageal re flux disease without esophagitis Start: 03-17-2025 End: 03-17-2025 [facility] Start: 03-11-2025 End: 06-25-2025 Telephone encounter Trish Odonnell RN [facility] [employer] [facility] Saurabh Valle Comment on above: Other (UGI schedulin g concern) Start: 03-10-2025 End: 03-10-2025 ambulatory [facility] Start: 03-10-2025 End: 03-10-2025 Encounter for other preprocedural examination TRISH BHATIA [facility] Start: 03-10-2025 End: 03-10-2025 Office outpatient visit 10 minutes Trish Bhatia LIBRARY MEDIA SPECIALIST - DRY KILN BURNER Work Phone: [facility] [employer] [facility] Saurabh Valle Comment on above: Gastroesophageal ref lux disease without esophagitis; Hypothyroidism, unspecified type; Morbid obesity with BMI of 40.0-44.9, adult (HCC) Start: 03-10-2025 End: 03-10-2025 [facility] [employer] [facility] Start: 03-04-2025 End: 03-04-2025 Documentation procedure Bibiana Espinoza PhD Work Phone: [employer] [facility] Start: 03-02-2025 End: 03-02-2025 Psycl/nrpsycl tst elec platform auto result Bibiana Espinoza PhD Work Phone: [employer] [facility] Comment on above: Other disorder of ea ting; Mild episode of recurrent major depressive disorder (HCC); Other specified anxiety disorders Start: 03-02-2025 End: 03-02-2025 Outside Procedure Bibiana Espinoza PhD Work Phone: [employer] [facility] Comment on above: Other disorder of ea ting; Mild episode of recurrent major depressive disorder (HCC); Other specified anxiety disorders Start: 02-25-2025 End: 02-25-2025 Clinical Support Jordon Santiago DO Work Phone: [facility] [place] Comment on above: Morbid obesity with BMI of 40.0-44.9, adult (HCC) (Primary Dx) Start: 02-23-2025 End: 02-23-2025 ambulatory Trish Bhatia LIBRARY MEDIA SPECIALIST - DRY KILN BURNER Work Phone: [facility] Start: 02-19-2025 End: 02-19-2025 Office outpatient new 30 minutes Cricket CUMMINSC Work Phone: [facility]le Comment on above: Pre-op testing (Prim shruthi Dx); Gastroesophageal reflux disease without esophagitis; Morbid obesity with BMI of 40.0-44.9, adult ([facility]); Cigarette nicotine dependence in remission Start: 02-19-2025 End: 02-19-2025 Patient encounter status Cricket Rincon PA-C Work Phone: [employer] Start: 02-19-2025 End: 02-19-2025 ambulatory [facility] [facility] [employer] Start: 02-03-2025 End: 02-03-2025 Office outpatient visit 25 minutes Trish Bhatia LIBRARY MEDIA SPECIALIST - DRY KILN BURNER Work Phone: [facility] [employer] [facility] [place] Comment on above: Gastroesophageal ref lux disease without esophagitis; Hypothyroidism, unspecified type; Morbid obesity with BMI of 40.0-44.9, adult (HCC) Start: 02-03-2025 End: 02-03-2025 [facility] Start: 01-28-2025 End: 02-08-2025 Documentation procedure Jordon Santiago DO Work Phone: [facility] [employer] [place] [place] Comment on above: EGD (EGD order ) Start: 01-25-2025 End: 01-25-2025 Patient encounter status Jordon Santiago DO Work Phone: [employer] Start: 01-25-2025 End: 01-25-2025 Telephone encounter Jordon Santiago DO Work Phone: [facility] [place] Comment on above: Other (FINANCIAL MARCELA E 2024); Surgery Scheduling (INITIAL SCHEDULING - ORDERS PLACED) Start: 01-25-2025 End: 01-25-2025 Office outpatient new 45 minutes Jordon Santiago DO Work Phone: [facility] [place] Comment on above: Morbid obesity, unsp ecified obesity type (HCC); Gastroesophageal reflux disease without esophagitis; Morbid obesity with BMI of 40.0-44.9, adult (HCC); Hypothyroidism, unspecified type Start: 01-25-2025 End: 01-25-2025 [facility] Start: 01-15-2025 End: 01-15-[address] Edilberto Loza MD Work Phone: [facility] Work Phone: Start: 01-15-2025 End: 01-15-[address] Edilberto Loza MD -Laboratory Work Phone: Start: 01-14-2025 End: 01-15-[address] Edilberto Loza MD Work Phone: [facility] Work Phone: Start: 01-14-2025 End: 01-14-[address] Edilberto Loza MD -Laboratory Work Phone: Start: 01-14-2025 End: 01-14-2025 ambulatory Edilberto Chi Dago Facility:[facility] Start: 10-22-2024 End: 10-22-2024 ambulatory Edilberto Chi Dago Facility:[facility] Start: 10-22-2024 End: 10-22-[address] Edilberto Loza MD -Physical Therapy Work Phone: Start: 10-01-2024 End: 10-01-[address] Edilberto Loza MD -Laboratory, Phy Office 3rd Flr Start: 10-01-2024 End: 10-01-2024 ambulatory Edilberto Chi Dago Facility:[facility] Start: 08-13-2024 End: 08-13-2024 ambulatory Edilberto Loza Facility:[facility] Start: 07-28-2024 End: 07-28-2024 ambulatory [facility] Start: 07-28-2024 End: 07-28-2024 Office outpatient visit 15 minutes Karie Silas Fallon LIBRARY MEDIA SPECIALIST-DRY KILN BURNER Work Phone: [facility] Office [facility] Comment on above: Gastroesophageal ref lux disease, unspecified whether esophagitis present (Primary Dx); Severe obesity (BMI >= 40) (Multi) Start: 02-19-2024 End: 02-19-2024 Office outpatient visit 15 minutes Karie Silas Fallon LIBRARY MEDIA SPECIALIST-DRY KILN BURNER Work Phone: [facility] Comment on above: Gastroesophageal ref lux disease, unspecified whether esophagitis present (Primary Dx); Severe obesity (BMI >= 40) (CMS/HCC) Start: 02-19-2024 End: 02-19-2024 ambulatory [facility] Ambulatory Start: 12-24-2023 End: 12-24-2023 ambulatory [facility] Ambulatory Start: 11-21-2023 End: 11-21-2023 ambulatory [facility] Start: 10-15-2023 End: 10-15-2023 Office outpatient visit 15 minutes Karie Fallon LIBRARY MEDIA SPECIALIST-DRY KILN BURNER Work Phone: [facility] Office [facility] Comment on above: Severe obesity (BMI >= 40) (CMS/HCC) (Primary Dx) Start: 10-15-2023 End: 10-15-2023 ambulatory [facility] Ambulatory Start: 09-11-2023 End: 09-11-2023 ambulatory [facility] Ambulatory Start: 08-13-2023 End: 08-13-2023 ambulatory [facility] Ambulatory Start: 03-16-2023 End: 03-17-2023 ambulatory ESTEPHANIA REEDER DO Facility:A Start: 03-16-2023 End: 03-16-2023 Patient encounter procedure ESTEPHANIA REEDER DO [facility] Start: 03-26-2022 End: 03-26-2022 Patient encounter procedure [facility]-Laboratory, Specimen Start: 03-26-2022 End: 03-26-2022 Patient encounter procedure [facility]-Radiology, [facility] Start: 01-20-2018 Ambulatory [facility] Procedures Date Procedure Procedure Detail Performing Clinician Start: 07-01-2025 Radiologic exam upr gi trc single contrast study Maria Guadalupe Friedt PA-C Work Phone: Start: 07-01-2025 Basic metabolic panel calcium total Maria Guadalupe Friedt PA-C Work Phone: Start: 06-30-2025 Basic metabolic panel calcium total Maria Guadalupe Friedt PA-C Work Phone: Start: 06-30-2025 End: 06-30-2025 Laps gstr rstcv px w/byp diana-en-y limb <150 cm Jordon Pozsgay DO Work Phone: Start: 06-30-2025 End: 06-30-2025 Laps rpr paraesphgl hrna incl fundplsty w/o mesh Jordon Pozsgay DO Work Phone: Start: 06-30-2025 End: 06-30-2025 Unlis laparoscopic procedure liver Jordon Pozsgay DO Work Phone: Start: 04-30-[address] Edilberto Loza MD Work Phone: Comment on above: This test was developed and its performa nce characteristicsdetermined by [employer]. It has not been cleared orapproved by the Food and Drug Administration.Cotinine levels greater than 20.0 are consistent with theuse of tobacco or tobacco cessation products.Performed at: [address] [id number] Director: Lou Leung MD, Phone: [phone] Start: 04-20-2025 Upper gastrointestinal tract contrast procedure Dr. Edilberto Loza MD Work Phone: Start: 04-08-2025 Ecg routine ecg w/least 12 lds trcg only w/o i&r Otto Perkins MD Work Phone: Start: 03-17-2025 End: 03-17-2025 Psychotherapy w/patient 30 minutes Other disorder of eating Bibiana Espinoza PhD Work Phone: Comment on above: Other disorder of eating; Mild episode of recurrent major depressive disorder (HCC); Other specified anxiety disorders Start: 03-10-2025 Lipid 1996 panel - Serum or Plasma Trish Bhatia LIBRARY MEDIA SPECIALIST [employer] Work Phone: Start: 03-10-2025 Thyrotropin [Units/volume] in Serum or Plasma Trish Bhaita LIBRARY MEDIA SPECIALIST [employer] Work Phone: Start: 03-02-2025 End: 03-02-2025 Psychiatric diagnostic evaluation Other disorder of eating Bibiana Espinoza PhD Work Phone: Comment on above: Other disorder of eating; Mild episode of recurrent major depressive disorder (HCC); Other specified anxiety disorders Start: 03-26-2022 Urine culture Start: 03-26-2022 X-ray of lumbar spine, two or three views Plan of Treatment Date Care Activity Detail Author Start: 03-10-2030 Lipid panel Lipid Panel [facility] Start: 06-22-2026 Diabetes mellitus screening Diabetes Screening [facility] Start: 03-10-2026 Diabetes mellitus screening Diabetes Screening [facility] Start: 03-10-2026 Thyroid stimulating hormone measurement TSH Level [facility] Start: 01-03-2026 End: 01-03-2026 Patient encounter procedure 01/03/2026 9:50 AM EST Office Visit [facility] [place] [address] [place] [phone] Jordon Santiago DO [address] [place] [address] [facility] [place] Start: 08-02-2025 End: 08-02-2025 Patient encounter procedure 08/02/2025 10:00 AM EDT Office Visit [facility] [employer] [facility] [place] [address] [place] [phone] Jordon Santiago DO [address] [place] [address] [facility] [facility] [place] Start: 07-14-2025 End: 06-30-2026 CBC panel - Blood by Automated count CBC Lab Routine H/O gastric bypass 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 Morbid obesity with BMI of 40.0-44.9, adult (HCC) Gastroesophageal reflux disease without esophagitis Expected: 07/14/2025 (Approximate), Expires: 06/30/2026 [employer] Comment on above: Expected: 07/14/2025 (Approximate), Expi res: 06/30/2026 Start: 07-14-2025 End: 06-30-2026 Cobalamin (Vitamin B12) [Mass/volume] in Serum or Plasma Vitamin B12 Lab Routine H/O gastric bypass 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 Morbid obesity with BMI of 40.0-44.9, adult (HCC) Gastroesophageal reflux disease without esophagitis Expected: 07/14/2025 (Approximate), Expires: 06/30/2026 [employer] Comment on above: Expected: 07/14/2025 (Approximate), Expi res: 06/30/2026 Start: 07-14-2025 End: 06-30-2026 Comprehensive metabolic 1998 panel - Serum or Plasma Comprehensive metabolic panel Lab Routine H/O gastric bypass 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 Morbid obesity with BMI of 40.0-44.9, adult (HCC) Gastroesophageal reflux disease without esophagitis Expected: 07/14/2025 (Approximate), Expires: 06/30/2026 [employer] Comment on above: Expected: 07/14/2025 (Approximate), Expi res: 06/30/2026 Start: 07-14-2025 End: 06-30-2026 Ferritin [Mass/volume] in Serum or Plasma Ferritin Lab Routine H/O gastric bypass 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 Morbid obesity with BMI of 40.0-44.9, adult (HCC) Gastroesophageal reflux disease without esophagitis Expected: 07/14/2025 (Approximate), Expires: 06/30/2026 [employer] Comment on above: Expected: 07/14/2025 (Approximate), Expi res: 06/30/2026 Start: 07-14-2025 End: 06-30-2026 Folate [Mass/volume] in Serum or Plasma Folate Lab Routine H/O gastric bypass 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 Morbid obesity with BMI of 40.0-44.9, adult (HCC) Gastroesophageal reflux disease without esophagitis Expected: 07/14/2025 (Approximate), Expires: 06/30/2026 [employer] Comment on above: Expected: 07/14/2025 (Approximate), Expi res: 06/30/2026 Start: 07-14-2025 End: 06-30-2026 Iron and Iron binding capacity panel - Serum or Plasma Iron Lab Routine H/O gastric bypass 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 Morbid obesity with BMI of 40.0-44.9, adult (HCC) Gastroesophageal reflux disease without esophagitis Expected: 07/14/2025 (Approximate), Expires: 06/30/2026 [employer] Comment on above: Expected: 07/14/2025 (Approximate), Expi res: 06/30/2026 Start: 07-14-2025 End: 06-30-2026 Magnesium [Mass/volume] in Serum or Plasma Magnesium Lab Routine H/O gastric bypass 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 Morbid obesity with BMI of 40.0-44.9, adult (HCC) Gastroesophageal reflux disease without esophagitis Expected: 07/14/2025 (Approximate), Expires: 06/30/2026 [employer] Comment on above: Expected: 07/14/2025 (Approximate), Expi res: 06/30/2026 Start: 07-14-2025 End: 06-30-2026 Zinc Zinc Lab Routine H/O gastric bypass 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 Morbid obesity with BMI of 40.0-44.9, adult (HCC) Gastroesophageal reflux disease without esophagitis Expected: 07/14/2025 (Approximate), Expires: 06/30/2026 [facility] [employer] Work Phone: Comment on above: Expected: 07/14/2025 (Approximate), Expi res: 06/30/2026 Start: 07-12-2025 Influenza vaccination Influenza Vaccine (#1) [facility] [employer] Start: 07-05-2025 End: 07-05-2025 Patient encounter procedure 07/05/2025 8:40 AM EDT Office Visit [facility] - [place] [address] [place] [phone] [facility] [address] [place], [place] [id number] [facility] [place] Start: 06-30-2025 End: 06-30-2025 Admission to same day surgery center 06/30/2025 7:30 AM EDT - 06/30/2025 10:30 AM EDT Surgery [facility] MAIN OR [address] [place] [phone] lakia Jordon [address] [place], [place] [id number] LAPAROSCOPIC DIANA-EN-Y GASTRIC BYPASS [52891 (CPT )] [facility] MA[facility] OR Comment on above: LAPAROSCOPIC DIANA-EN-Y GASTRIC BYPASS [4 3644 (CPT )] Start: 06-30-2025 End: 06-30-2025 Anesthesia consultation 06/30/2025 7:30 AM EDT Anesthesia Event [facility] MAIN OR [address] [place] [phone] Lorena Griffith, LIBRARY MEDIA SPECIALIST - [facility] [address] [place] [address] [facility] OR Start: 06-30-2025 End: 06-30-2025 Laps gstr rstcv px w/byp diana-en-y limb <150 cm LAPAROSCOPIC, CREATION, GASTRIC BYPASS, WITH DIANA-EN-Y GASTROENTEROSTOMY Morbid obesity with BMI of 40.0-44.9, adult (HCC) 06/30/2025 7:30 AM EDT [facility] Operating Room Start: 06-30-2025 End: 06-30-2025 Laps rpr paraesphgl hrna incl fundplsty w/o mesh LAPAROSCOPIC, REPAIR, HERNIA, HIATAL Morbid obesity with BMI of 40.0-44.9, adult (HCC) 06/30/2025 7:30 AM EDT [facility] Operating Room Start: 06-30-2025 Subsequent hospital visit by physician 06/30/2025 7:30 AM EDT Hospital Encounter [facility] MAIN OR [address] [place] [phone] Jordon Santiago [address] [place], [place] [id number] [facility] MAIN OR Start: 06-30-2025 End: 06-30-2025 Unlis laparoscopic procedure liver LAPAROSCOPIC, BIOPSY, LIVER Morbid obesity with BMI of 40.0-44.9, adult (HCC) 06/30/2025 7:30 AM EDT [facility] Operating Room Start: 06-22-2025 End: 06-22-2025 Admission to establishment 06/22/2025 2:00 PM EDT Pre-Admission Testing [facility] Pre-Admit Testing [address] [facility] [place] [phone] [facility] Pre-Admit Testing Start: 06-11-2025 End: 09-11-2025 25-hydroxyvitamin D3 [Mass/volume] in Serum or Plasma Vitamin D Deficiency Screening (Vit D 25) Lab Routine Deficiency of multiple nutrient elements Expected: 06/11/2025 (Approximate), Expires: 09/11/2025 [facility] [employer] Work Phone: Comment on above: Expected: 06/11/2025 (Approximate), Expi res: 09/11/2025 Start: 06-07-2025 End: 06-07-2025 Patient encounter procedure 06/07/2025 9:10 AM EDT Office Visit [facility] - [address] [place] [phone] Jordon Santiago [address] [place] [address] [facility] [place] Start: 05-25-2025 End: 05-25-2026 Albumin [Mass/volume] in Serum or Plasma Albumin Lab Routine Obesity, morbid, BMI 40.0-49.9 (HCC) Expected: 05/25/2025 (Approximate), Expires: 05/25/2026 [employer] Work Phone: Comment on above: Expected: 05/25/2025 (Approximate), Expi res: 05/25/2026 Start: 05-25-2025 End: 05-25-2026 Basic metabolic 1998 panel - Serum or Plasma Basic metabolic panel Lab Routine Obesity, morbid, BMI 40.0-49.9 (HCC) Expected: 05/25/2025 (Approximate), Expires: 05/25/2026 [facility] Comment on above: Expected: 05/25/2025 (Approximate), Expi res: 05/25/2026 Start: 05-25-2025 End: 05-25-2026 CBC panel - Blood by Automated count CBC Lab Routine Obesity, morbid, BMI 40.0-49.9 (HCC) Expected: 05/25/2025 (Approximate), Expires: 05/25/2026 [facility] Comment on above: Expected: 05/25/2025 (Approximate), Expi res: 05/25/2026 Start: 05-25-2025 End: 05-25-2026 Hemoglobin A1c measurement Hemoglobin A1c Lab Routine Obesity, morbid, BMI 40.0-49.9 (HCC) Expected: 05/25/2025 (Approximate), Expires: 05/25/2026 [facility] Comment on above: Expected: 05/25/2025 (Approximate), Expi res: 05/25/2026 Start: 04-28-2025 End: 04-27-2026 Nicotine, Blood Nicotine, Blood Lab Routine Pre-op testing Pre-operative laboratory examination Expected: 04/28/2025, Expires: 04/27/2026 [employer] Work Phone: Comment on above: Expected: 04/28/2025, Expires: Start: 04-08-2025 End: 04-08-2025 Patient encounter procedure 04/08/2025 1:40 PM EDT Office Visit [facility] - [place] [address] [place] [address] Trish Bhatia, LIBRARY MEDIA SPECIALIST - [facility] BURNER [address] [place] [address] [facility] [place] Start: 04-08-2025 End: 04-08-2025 Patient encounter procedure 04/08/2025 10:30 AM EDT Office Visit [facility] Cardiology - [place] [address] [place] [phone] Jf Irwin, LIBRARY MEDIA SPECIALIST - [facility] [address] [place] [address] [facility] [place] Start: 03-25-2025 End: 03-25-2025 Admission to same day surgery center 03/25/2025 1:45 PM EDT - 03/25/2025 2:05 PM EDT Surgery [facility] [address] [place] [address] Potomersgrafat, Jordon, DO [address] [place] [address] ESOPHAGOGASTRODUODENOSCO PY, WITH BIOPSY [05112 (CPT )] [facility] [address] [facility] Comment on above: ESOPHAGOGASTRODUODENOSCOPY, WITH BIOPSY [34773 (CPT )] Start: 03-25-2025 End: 03-25-2025 Egd transoral biopsy single/multiple [facility] Start: 03-25-2025 Subsequent hospital visit by physician 03/25/2025 1:45 PM EDT Hospital Encounter [facility] [address] [place] [address] Pozsgay, Jordon, DO [address] [place] [address] [facility] [address] [facility] Start: 03-17-2025 End: 03-17-2025 Telemedicine consultation with patient 03/17/2025 1:30 PM EDT Telemedicine [facility] [place] [address] [place] [phone] Bibiana Espinoza, PhD [address] [place] [address] [facility] [place] Start: 03-10-2025 End: 03-10-2025 Patient encounter procedure 03/10/2025 9:00 AM EDT Office Visit [facility] [place] [address] [place] [phone] Trish Bhatia, LIBRARY MEDIA SPECIALIST - [facility] BURNER [address] [place] [address] [facility] [place] Start: 03-05-2025 End: 03-05-2025 Patient encounter procedure 03/05/2025 2:00 PM EDT Appointment [facility] [place] [address] [place] [phone] Cricket Rincon PA-C [address] [place] [address] [facility] Start: 03-05-2025 Subsequent hospital visit by physician 03/05/2025 2:00 PM EDT Hospital Encounter [facility] [place] [address] [place] [address] Cricket Rincon PA-C [address] [place] [address] [facility] [place] Start: 03-02-2025 End: 03-02-2025 Patient encounter procedure [facility] [place] Start: 02-25-2025 End: 02-25-2025 Egd transoral biopsy single/multiple ESOPHAGOGASTRODUODENOSCO PY, WITH BIOPSY Gastro-esophageal reflux disease without esophagitis 02/25/2025 1:45 PM EDT [facility] Start: 02-25-2025 End: 02-25-2025 Clinical Support [facility] Comment on above: ESOPHAGOGASTRODUODENOSCOPY, WITH BIOPSY [10096 (CPT )] Start: 02-19-2025 End: 02-19-2026 CT Chest for screening WO contrast CT lung screening low dose Imaging Routine Cigarette nicotine dependence in remission Expected: 02/19/2025, Expires: 02/19/2026 [facility] System Work Phone: Comment on above: Expected: 02/19/2025, Expires: Start: 02-19-2025 End: 02-19-2025 Patient encounter procedure 02/19/2025 10:40 AM EDT Office Visit [facility] [place] [address] [place] [address] Cricket Rincon PA-C [address] [place], [place] [phone] [facility] [place] Start: 02-11-2025 End: 01-28-2026 25-hydroxyvitamin D3 [Mass/volume] in Serum or Plasma Vitamin D Deficiency Screening (Vit D 25) Lab Routine Gastroesophageal reflux disease without esophagitis Morbid obesity with BMI of 40.0-44.9, adult (HCC) Hypothyroidism, unspecified type Pre-op testing Expected: 02/11/2025 (Approximate), Expires: 01/28/2026 [facility] Comment on above: Expected: 02/11/2025 (Approximate), Expi res: 01/28/2026 Start: 02-11-2025 End: 01-28-2026 CBC panel - Blood by Automated count CBC Lab Routine Gastroesophageal reflux disease without esophagitis Morbid obesity with BMI of 40.0-44.9, adult (HCC) Hypothyroidism, unspecified type Pre-op testing Expected: 02/11/2025 (Approximate), Expires: 01/28/2026 [facility] Comment on above: Expected: 02/11/2025 (Approximate), Expi res: 01/28/2026 Start: 02-11-2025 End: 01-28-2026 Cobalamin (Vitamin B12) [Mass/volume] in Serum or Plasma Vitamin B12 Lab Routine Gastroesophageal reflux disease without esophagitis Morbid obesity with BMI of 40.0-44.9, adult (HCC) Hypothyroidism, unspecified type Pre-op testing Expected: 02/11/2025 (Approximate), Expires: 01/28/2026 [employer] Comment on above: Expected: 02/11/2025 (Approximate), Expi res: 01/28/2026 Start: 02-11-2025 End: 01-28-2026 Comprehensive metabolic 1998 panel - Serum or Plasma Comprehensive metabolic panel Lab Routine Gastroesophageal reflux disease without esophagitis Morbid obesity with BMI of 40.0-44.9, adult (HCC) Hypothyroidism, unspecified type Pre-op testing Expected: 02/11/2025 (Approximate), Expires: 01/28/2026 [employer] Comment on above: Expected: 02/11/2025 (Approximate), Expi res: 01/28/2026 Start: 02-11-2025 End: 01-28-2026 Ferritin [Mass/volume] in Serum or Plasma Ferritin Lab Routine Gastroesophageal reflux disease without esophagitis Morbid obesity with BMI of 40.0-44.9, adult (HCC) Hypothyroidism, unspecified type Pre-op testing Expected: 02/11/2025 (Approximate), Expires: 01/28/2026 [employer] Comment on above: Expected: 02/11/2025 (Approximate), Expi res: 01/28/2026 Start: 02-11-2025 End: 01-28-2026 Folate [Mass/volume] in Serum or Plasma Folate Lab Routine Gastroesophageal reflux disease without esophagitis Morbid obesity with BMI of 40.0-44.9, adult (HCC) Hypothyroidism, unspecified type Pre-op testing Expected: 02/11/2025 (Approximate), Expires: 01/28/2026 [employer] Comment on above: Expected: 02/11/2025 (Approximate), Expi res: 01/28/2026 Start: 02-11-2025 End: 01-28-2026 Hemoglobin A1c measurement Hemoglobin A1c Lab Routine Gastroesophageal reflux disease without esophagitis Morbid obesity with BMI of 40.0-44.9, adult (HCC) Hypothyroidism, unspecified type Pre-op testing Expected: 02/11/2025 (Approximate), Expires: 01/28/2026 [facility] Work Phone: Comment on above: Expected: 02/11/2025 (Approximate), Expi res: 01/28/2026 Start: 02-11-2025 End: 01-28-2026 Iron and Iron binding capacity panel - Serum or Plasma Iron Lab Routine Gastroesophageal reflux disease without esophagitis Morbid obesity with BMI of 40.0-44.9, adult (HCC) Hypothyroidism, unspecified type Pre-op testing Expected: 02/11/2025 (Approximate), Expires: 01/28/2026 [facility] [employer] Comment on above: Expected: 02/11/2025 (Approximate), Expi res: 01/28/2026 Start: 02-11-2025 End: 01-28-2026 Lipid 1996 panel - Serum or Plasma Lipid panel Lab Routine Gastroesophageal reflux disease without esophagitis Morbid obesity with BMI of 40.0-44.9, adult (HCC) Hypothyroidism, unspecified type Pre-op testing Expected: 02/11/2025 (Approximate), Expires: 01/28/2026 [facility] [employer] Comment on above: Expected: 02/11/2025 (Approximate), Expi res: 01/28/2026 Start: 02-11-2025 End: 01-28-2026 Magnesium [Mass/volume] in Serum or Plasma Magnesium Lab Routine Gastroesophageal reflux disease without esophagitis Morbid obesity with BMI of 40.0-44.9, adult (HCC) Hypothyroidism, unspecified type Pre-op testing Expected: 02/11/2025 (Approximate), Expires: 01/28/2026 [facility] [employer] Comment on above: Expected: 02/11/2025 (Approximate), Expi res: 01/28/2026 Start: 02-11-2025 End: 01-28-2026 Thyrotropin [Units/volume] in Serum or Plasma TSH Lab Routine Gastroesophageal reflux disease without esophagitis Morbid obesity with BMI of 40.0-44.9, adult (HCC) Hypothyroidism, unspecified type Pre-op testing Expected: 02/11/2025 (Approximate), Expires: 01/28/2026 [facility] [employer] Comment on above: Expected: 02/11/2025 (Approximate), Expi res: 01/28/2026 Start: 02-11-2025 End: 01-28-2026 US Abdomen US abdomen complete Imaging Routine Gastroesophageal reflux disease without esophagitis Morbid obesity with BMI of 40.0-44.9, adult (HCC) Hypothyroidism, unspecified type Pre-op testing Expected: 02/11/2025, Expires: 01/28/2026 [facility] Comment on above: Expected: 02/11/2025, Expires: Start: 02-11-2025 End: 01-28-2026 Vitamin B1, whole blood ([facility]) Vitamin B1, whole blood ([facility]) Lab Routine Gastroesophageal reflux disease without esophagitis Morbid obesity with BMI of 40.0-44.9, adult (HCC) Hypothyroidism, unspecified type Pre-op testing Expected: 02/11/2025 (Approximate), Expires: 01/28/2026 [employer] [facility] Comment on above: Expected: 02/11/2025 (Approximate), Expi res: 01/28/2026 Start: 02-11-2025 End: 01-28-2026 XR Abdomen and RF Gastrointestinal tract upper W contrast PO FL upper GI w KUB Imaging Routine Gastroesophageal reflux disease without esophagitis Morbid obesity with BMI of 40.0-44.9, adult (HCC) Hypothyroidism, unspecified type Pre-op testing Expected: 02/11/2025, Expires: 01/28/2026 [facility] Comment on above: Expected: 02/11/2025, Expires: Start: 02-11-2025 End: 01-28-2026 Zinc (Sendout) Zinc (Sendout) Lab Routine Gastroesophageal reflux disease without esophagitis Morbid obesity with BMI of 40.0-44.9, adult (HCC) Hypothyroidism, unspecified type Pre-op testing Expected: 02/11/2025 (Approximate), Expires: 01/28/2026 [facility] Comment on above: Expected: 02/11/2025 (Approximate), Expi res: 01/28/2026 Start: 02-03-2025 End: 02-03-2025 Patient encounter procedure 02/03/2025 10:40 AM EDT Office Visit [facility] Weight Management - [address] [place] [address] Trish Bhatia, LIBRARY MEDIA SPECIALIST - [place]URNER [address] [facility] [address] [place] [address] [facility] [place] Start: 11-11-2024 Medicare Advantage Annual Wellness Visit Medicare Advantage Annual Wellness Visit [facility] Start: 07-12-2024 COVID-19 Vaccine ( season) COVID-19 Vaccine ( season) [facility] Start: 07-12-2024 COVID-19 Vaccine ( season) COVID-19 Vaccine ( season) [facility] Start: 07-12-2024 Influenza vaccination Influenza Vaccine (Season Ended) [facility] Start: 2023 RSV Immunization for Adults (1 - Risk 60-74 years 1-dose series) RSV Immunization for Adults (1 - Risk 60-74 years 1-dose series) [facility] Start: 2023 RSV patients and/or patients aged 60+ years (1 - 1-dose 60+ series) RSV patients and/or patients aged 60+ years (1 - 1-dose 60+ series) [facility] Start: 11-15-2023 End: 11-15-2023 Nutrition therapy 11/15/2023 9:00 AM EST Nutrition [facility] [address] [address] Nhua Gore, VIKAN, LD [facility] Start: 07-12-2023 COVID-19 Vaccine ( season) COVID-19 Vaccine ( season) [facility] Start: 07-12-2023 Influenza vaccination Influenza Vaccine (#1) [facility] Start: 01-21-2019 Pneumococcal Vaccine: 50+ Years (2 of 2 - PCV) Pneumococcal Vaccine: 50+ Years (2 of 2 - PCV) [facility] Start: 09-30-2018 Zoster Vaccines (2 of 2) Zoster Vaccines (2 of 2) [facility] Start: 2013 Zoster Vaccines (1 of 2) Zoster Vaccines (1 of 2) [facility] Start: 2003 Screening for malignant neoplasm of breast Mammogram [facility] Start: 1993 Screening for malignant neoplasm of cervix [facility] Start: 1985 DTaP/Tdap/Td Vaccines (1 - Tdap) DTaP/Tdap/Td Vaccines (1 - Tdap) [facility] Start: 1984 Screening for malignant neoplasm of cervix [facility] Start: 1982 DTaP/Tdap/Td Vaccines (1 - Tdap) DTaP/Tdap/Td Vaccines (1 - Tdap) [facility] Start: 1981 Diabetes mellitus screening Diabetes Screening [facility] Start: 1981 Hepatitis C screening Hepatitis C Screening [facility] Start: 1975 Depression Monitoring Depression Monitoring [facility] Start: 1964 MMR Vaccines (1 of 1 - Standard series) MMR Vaccines (1 of 1 - Standard series) [facility] Start: 05-24-1964 COVID-19 Vaccine (#1) COVID-19 Vaccine (#1) [facility] Start: 1963 Hepatitis B Vaccines (1 of 3 - 3-dose series) Hepatitis B Vaccines (1 of 3 - 3-dose series) [facility] Start: 1963 HIV screening HIV Screening [facility] Start: 1963 Lipid panel Lipid Panel [facility] Start: 1963 Screening for malignant neoplasm of colon [facility] Start: 1963 Thyroid stimulating hormone measurement TSH Level [facility] Start: 1963 Yearly Adult Physical Yearly Adult Physical [facility] ECG 12 lead - CLINIC PERFORMED ECG 12 lead - CLINIC PERFORMED CV ECG Routine Gastroesophageal reflux disease without esophagitis 04/08/2025 10:38 AM EDT [facility] Tissue exam Tissue exam Path ology and Cytology Timed Gastro-esophageal reflux disease without esophagitis Release Upon Ordering for 1 Occurrences starting 03/25/2025 [employer] Work Phone: Comment on above: Release Upon Ordering for 1 Occurrences starting 03/25/2025 Tissue exam [facility] Work Phone: Comment on above: Release Upon Ordering for 1 Occurrences starting 06/30/2025, 1 completed Vitamin B1, whole bl ood ([facility]) Vitamin B1, whole blood ([facility]) Lab Routine Gastroesophageal reflux disease without esophagitis Morbid obesity with BMI of 40.0-44.9, adult (HCC) Hypothyroidism, unspecified type Pre-op testing 03/10/2025 10:01 AM EDT [facility] Zinc (Sendout) Zinc (Sendout) L ab Routine Gastroesophageal reflux disease without esophagitis Morbid obesity with BMI of 40.0-44.9, adult (HCC) Hypothyroidism, unspecified type Pre-op testing 03/10/2025 10:01 AM EDT [employer] Immunizations Immunization Date Immunization Notes Care Provider Maru branch 07-07-2024 influenza virus vaccine, unspecified formulation Jordon Santiago DO Work Phone: [facility] 01-21-2018 pneumococcal polysaccharide vaccine, 23 valent Jordon Santiago DO Work Phone: [employer] Work Phone: 11-27-2016 influenza virus vaccine, unspecified formulation Karie Fallon LIBRARY MEDIA SPECIALIST-[facility] Work Phone: [facility] Work Phone: Payers Date Payer Category Payer Medicare HMO [employer] MEDICARE [id number] 2024 Private Health Insurance [id number] 2024 Private Health Insurance [id number] 2024 Self-pay [id number] 2024 Unknown [id number] 2024 Unknown [id number] 2023 Unknown 2023 Unknown [id number] 2023 Unknown [id number] 1963 Unknown [id number] 2.16.840.1.756088.3.579.2. 627 1963 Unknown [id number] 2.16.840.1.758900.3.579.2. 1244 1963 Unknown [id number] 2.16.840.1.196616.3.579.2. 1243 1963 Unknown [id number] 2.16.840.1.802914.3.579.2. 4 1963 Unknown [id number] 2.16.840.1.915730.3.579.2. 1243 1963 Unknown [id number] 2.16.840.1.607619.3.579.2. 1244 1963 Unknown [id number] 2.16.840.1.348723.3.579.2. 1244 1963 Unknown [id number] 2.16.840.1.035938.3.579.2. 1244 1963 Unknown [id number] 2.16.840.1.520369.3.579.2. 1243 1963 Unknown [id number] 2.16.840.1.260351.3.579.2. 4 1963 Unknown [id number] 2.16.840.1.588459.3.579.2. 1243 1963 Unknown [id number] 2.16.840.1.170799.3.579.2. 1244 Medicare [id number] Unknown [id number] 2.16.840.1.881140.3.579.2. 462 Unknown [id number] 2.16.840.1.202351.3.579.2. 462 Unknown [id number] 2.16.840.1.008866.3.579.2. 462 Unknown [id number] 2.16.840.1.122415.3.579.2. 462 Unknown [id number] 2.16.840.1.799930.3.579.2. 462 Unknown [id number] 2.16.840.1.430115.3.579.2. 462 Unknown [id number] 2.16.840.1.148306.3.579.2. 462 Unknown [id number] 2.16.840.1.802353.3.579.2. 462 Unknown [id number] 2.16.840.1.464335.3.579.2. 462 Unknown [id number] 2.16.840.1.712938.3.579.2. 462 Social History Date Type Detail Facility Start: 10-29-2019 Tobacco smoking status [facility] Unknown if ever smoked [facility] Work Phone: Start: 1965 Sex Assigned At Female [facility] Tobacco smoking status No Smokin g Status Entered [facility] Start: 08-13-2023 End: 01-25-2025 Tobacco smoking status NHIS Ex-smoker [facility] Work Phone: Start: 05-11-1977 History of tobacco use Current smoker [facility] Work Phone: Start: 05-11-1977 History of tobacco use Cigarette Smoker [facility] Work Phone: Start: 08-13-2023 End: 01-25-2025 Tobacco use and exposure Smokeless tobacco non-user [facility] Work Phone: Start: 10-15-2023 End: 01-27-2025 Alcohol intake Lifetime non-drinker (finding) [facility] Work Phone: Start: 09-11-2023 End: 06-30-2025 History of Social function [facility] Work Phone: Start: 09-11-2023 End: 06-30-2025 Alcohol Use Disorder Identification Test - Consumption [AUDIT-C] [facility] Work Phone: How often to you hav e a drink containing alcohol? Never [facility] Work Phone: How many standard dr inks containing alcohol do you have on a typical day? Patient does not drink [facility] Work Phone: Start: 1965 Sex Assigned At Not on file [facility] Work Phone: Start: 10-05-2023 End: 02-19-2024 Exposure to SARS-CoV-2 (event) Not sure [facility] Start: 06-11-2022 End: 01-28-2025 Sex Female (finding) [facility] Start: 10-29-2019 Tobacco smoking status NHIS Smokes tobacco daily (finding) [facility] Has the [employer], [employer], [employer], or [employer] threatened to shut off services in your home in past 12Mo No [employer] [facility] (I/We) worried diego er (my/our) food would run out before (I/we) got money to buy more. Never true [employer] [facility] Start: 07-01-2025 End: 07-05-2025 Alcoholic beverage intake Ex-drinker (finding) [facility] Goals Date Patient Goal Desired Activity /State Functional Status Date Assessment Result Facility [facility] Clinical Notes 10-15-2023 to 07-05-2025 Katlyn Bradford, RD - 07/05/2025 8:40 AM Jojo Santiago, - 07/05/2025 8:40 AM Opal Wyatt - 07/01/2025 8:44 AM Kamilah Pierce RN - 06/30/2025 3:04 PM NEHEMIASTSkyler Instructions Note Date & Type Note Facility 07-05-2025 History of Present illness Narrative [facility] 1 WEEK VISIT POST-OPERATIVE DIETITIAN Date: 07/05/25 Surgeon: Dr. Santiago Current Medications: has a current medication list which includes the following prescription(s): citalopram, levothyroxine, ondansetron odt, oxycodone, pantoprazole, b complex-c, biotin, black cohosh, calcium carbonate, and multiple vitamins-minerals. Patient's weight decreased by: -3 lbs since last visit Patient reporting: symptoms: Other gas Patient s portions: Discussed. are adequate for current diet: 1/4 cup (2 oz) Patient does consume 3 small meals daily. Patient reported portion size of approximately: cup (2oz) Protein requirements: Discussed. Fluid requirements discussed. Current Fluid Intake: 48-64 oz Patient only drinks sugar-free, caffeine-free and carbonation-free fluids Yes Patient waits 30 minutes after meals to drink Yes Exercise activities: Discussed. Patient does plan to exercise when cleared. She was reminded that regular exercise is critical part of a successful outcome following weight loss surgery. Walking Behavioral/Emotional changes: Reviewed. Patient does feel comfortable with changes in eating behaviors and associated emotional changes. She was reminded that psychological counseling is available through [facility] post-[facility]. Vitamin supplementation: Discussed with patient. She will start the following vitamin supplements today: Calcium Citrate tid, MultiVitamin with Iron, Vitamin B12, Vitamin B1, Vitamin D3, and Biotin Recent Nutrient Concerns and Vitamin Supplementation Changes: has some gas, pt will start vitamin regimen today Notes/Comments: Current diet reviewed. Patient to start puree diet for 10 days then soft diet up until the patient's 1 month office visit. Informed patient of new goal to increase to 5-6 small meals daily: Handouts provided. No coffee until further notice Patient encouraged to call or Mychart with any questions or concerns. Visited completed by: Katlyn Bradford MS, RDN, LD Images from the original note were not included. HPI, PHYSICAL EXAMINATION & PLAN POST-OP HPI: Patient here today for 1 week post-weight loss surgery follow up Visit Diagnoses: 1. H/O gastric bypass 2. Deficiency of multiple nutrient elements 3. Deficiency of other specified B group vitamins 4. Morbid obesity with BMI of 40.0-44.9, adult (HCC) 5. Gastroesophageal reflux disease without esophagitis HPI: The patient is feeling good. Denies nausea, vomiting, dysphagia, or any GERD Sx. Patient is currently taking a PPI and will continue until the 6 month visit. Patient is currently up and walking hourly as instructed. Patient was instructed: no lifting heavier than 15 lbs or submerging into water until 1 month office visit. The first beater is to discuss and start supplements. Patient is currently up hourly walking. BSTOP Pain Scale today: 4 How many pain medications have been used since surgery: 8 Has the patent been using Tylenol and/or Ice: tylenol, no ice. Review of Systems Constitutional: Negative. HENT: Negative. Respiratory: Negative. Cardiovascular: Negative. Gastrointestinal: Negative. Genitourinary: Negative. Musculoskeletal: Negative. Neurological: Negative. Psychiatric/Behavioral: Negative. All other systems reviewed and are negative. Vital signs are stable. Labs were not drawn. Physical Examination: BP 119/73 Pulse 86 Temp 36.2 C (97.1 F) Ht 5' 5 (1.651 m) Wt 246 lb 9.6 oz (112 kg) Comment: bcc SpO2 98% BMI 41.04 kg/m Physical exam: General: Awake, alert Lungs: Good inspiratory effort Hearts: Regular Abdomen: Mild bruising of wounds, steri strips in place LE: No edema, no calf pain Surgical site: is:clean, dry, intact, and nontender Drainage from surgical site: none Patient does NOT have a superficial incisional SSI Plan: Orders Placed This Encounter Procedures Zinc These orders are set for an approximate date - they can be drawn up to 3 months prior to the Expected Date on this Req. Please send results to: KELL LOZA MD - [address] [address] - [phone] And if not done at a [facility], please send to: [place] [id number] Patient Name: Jaime Oneill - 1965 Order Created by : Doreen Neely MA Standing Status: Future Number of Occurrences: 1 Expected Date: 07/14/2025 Expiration Date: 06/30/2026 Folate These orders are set for an approximate date - they can be drawn up to 3 months prior to the Expected Date on this Req. Please send results to: MD Saurabh [address] [facility] [id number] - [phone] And if not done at a [facility], please send to: [place] [address] Patient Name: Jaime Wiley 1965 Order Created by : Doreen Neely MA Standing Status: Future Number of Occurrences: 1 Expected Date: 07/14/2025 Expiration Date: 06/30/2026 Iron These orders are set for an approximate date - they can be drawn up to 3 months prior to the Expected Date on this Req. Please send results to: MD [address] [facility] [id number] - [phone] And if not done at a [facility], please send to: [place] [address] Patient Name: Jaime Oneill - 1965 Order Created by : Doreen Neely MA Standing Status: Future Number of Occurrences: 1 Expected Date: 07/14/2025 Expiration Date: 06/30/2026 Ferritin These orders are set for an approximate date - they can be drawn up to 3 months prior to the Expected Date on this Req. Please send results to: MD Saurab[address] [facility] [id number] - [phone] And if not done at a [facility], please send to: [place] [address] Patient Name: Jaime Oneill - 1965 Order Created by : Doreen Neely MA Standing Status: Future Number of Occurrences: 1 Expected Date: 07/14/2025 Expiration Date: 06/30/2026 Magnesium These orders are set for an approximate date - they can be drawn up to 3 months prior to the Expected Date on this Req. Please send results to: MD Saurab[address] [place] [address] - [phone] And if not done at a [facility], please send to: [place] [address] Patient Name: Jaime Oneill - 1965 Order Created by : Doreen Neely MA Standing Status: Future Number of Occurrences: 1 Expected Date: 07/14/2025 Expiration Date: 06/30/2026 Vitamin B12 These orders are set for an approximate date - they can be drawn up to 3 months prior to the Expected Date on this Req. Please send results to: MD Saurabh [address] [place] [address] - [phone] And if not done at a [facility], please send to: [place] [address] Patient Name: Jaime Oneill - 1965 Order Created by : Doreen Neely MA Standing Status: Future Number of Occurrences: 1 Expected Date: 07/14/2025 Expiration Date: 06/30/2026 Comprehensive metabolic panel These orders are set for an approximate date - they can be drawn up to 3 months prior to the Expected Date on this Req. Please send results to: MD Saurabh [address] [place] [phone] - [phone] And if not done at a [facility], please send to: [facility] - [address] [place] [address], [address], [address] Patient Name: Jaime Oneill - 1965 Order Created by : Doreen Neely MA Standing Status: Future Number of Occurrences: 1 Expected Date: 07/14/2025 Expiration Date: 06/30/2026 CBC These orders are set for an approximate date - they can be drawn up to 3 months prior to the Expected Date on this Req. Please send results to: KELL LOZA MD - [address] [facility] [address] [facility] [address] - [phone] And if not done at a [facility], please send to: [facility] - [address] [place] [address], [address], [address] Patient Name: Jaime Oneill - 1965 Order Created by : Doreen Neely MA Standing Status: Future Number of Occurrences: 1 Expected Date: 07/14/2025 Expiration Date: 06/30/2026 Medications ordered during this encounter: Encounter Medications[1] 1). Oral Thrush: positive, Rx: 5ml Nystatin swish and spit every 8 hours x 10days 2). Liver Bx: Final Diagnosis LIVER, WEDGE BIOPSY: - MILD STEATOSIS, GRADE 1 Comments: Sections demonstrate an intact liver architecture with mild macrovesicular steatosis occupying approximately 30% of the liver volume. There is no evidence of ballooning degeneration, lobular activity, or Heidy's hyaline. The portal tracts contain all normal structures without any significant inflammatory infiltrate. Special stains (iron and trichome) are negative for increased iron storage and fibrosis, respectively. NAFLD Activity Score (TAMIKO): Steatosis: 1 (5-33%) Lobular inflammation (foci per 20x field): 0 (0) Hepatocyte balloonin (none) Total Score: 1/8 Stage: 0 (negative for fibrosis) Heidy hyaline: negative Refer to GI : No 3). Follow up at 1 month office visit with standard labs 4). Patient to see PCP for follow up regarding further management of DM and HTN medications. 5). Continue PPI until 6 month office visit 6). Advance to Pureed diet, RD discussed at office visit 7). Psych concerns: No 8). No lifting >15lbs until 1 month office visit. 9). If patient is a woman of childrearing age- 18-50. We discussed the importance of contraception during the first 12-18 months post op, and we discussed that fertility will increase following the procedure. Advised patient to discuss with her OBGYN regarding contraception. Patient counseled with good understanding verbalized. 10). Weight loss: Post-op Weight Metrics: %EBWL: % EBWL: 2% Weight Change Since Last Visit: Weight Change: -3 lbs Weight Change from Highest Pre-op Weight: Total Weight Change: -3 lbs Current Medications: Patient's Medications New Prescriptions CALCIUM CITRATE 250 MG TABLET Take 2 tablets (500 mg) by mouth 3 times daily. Take 2 tablets by mouth three times daily. CHOLECALCIFEROL (VITAMIN D) 50 MCG (2000 UT) CAPSULE Take 2 capsules (100 mcg) by mouth daily. CYANOCOBALAMIN [address] 1 tablet (500 mcg) under the tongue daily. Place 500 mcg under the tongue to dissolve once daily MULTIPLE VITAMINS-MINERALS (CENTRUM ADULTS) TABLET Take 2 tablets by mouth daily. NYSTATIN (MYCOSTATIN) 127917 UNIT/ML SUSPENSION Take 5 mL (500,000 Units) by mouth 4 times daily. Swish in mouth and spit out. THIAMINE (VITAMIN B-1) 50 MG TABLET Take 1 tablet (50 mg) by mouth daily. Take 1 tablet by mouth daily. Previous Medications B COMPLEX-C (SUPER B COMPLEX PO) Take 1 tablet by mouth daily. PATIENT STATES LAST TAKEN ON 06/19/25 BIOTIN 5000 MCG CAPSULE Take 1 capsule by mouth daily. PATIENT STATES LAST TAKEN ON 06/19/25 BLACK COHOSH PO Take by mouth daily. PATIENT STATES LAST TAKEN ON 06/19/25 CALCIUM CARBONATE (CALCIUM 600 PO) Take 1 tablet by mouth daily. PATIENT STATES LAST TAKEN ON 06/19/25 CITALOPRAM (CELEXA) 20 MG TABLET Take 20 mg by mouth daily. LEVOTHYROXINE (SYNTHROID, LEVOXYL) 125 MCG TABLET Take 125 mcg by mouth daily. ONDANSETRON ODT (ZOFRAN-ODT) 4 MG DISINTEGRATING TABLET Take 1 tablet (4 mg) by mouth every 8 hours as needed for nausea for up to 7 days. OXYCODONE (ROXICODONE) 5 MG IMMEDIATE RELEASE TABLET Take 1 tablet (5 mg) by mouth every 6 hours as needed for severe pain (7-10) for up to 5 days. PANTOPRAZOLE (PROTONIX) 40 MG EC TABLET Take 40 mg by mouth daily. Modified Medications No medications on file Discontinued Medications MULTIPLE VITAMINS-MINERALS (CENTRUM SILVER ULTRA WOMENS PO) Take 1 tablet by mouth daily. PATIENT STATES LAST TAKEN ON 06/19/25 She met with the dietitian today to review are vitamin and protein recommendations. Increase activity as recommended, the wounds are healed, no evidence of abdominal wall hernias. No nausea vomiting or dysphagia noted. Appropriate bowel function, discussed with her regarding contacting us for any questions or concerns. The lab slip was signed for the next visit. Follow up 1 month postop. I personally performed the evaluation and management of Jaime Oneill in the development of a treatment plan for this patient. I personally interviewed the patient and performed an individual physical examination. In addition, I discussed the patient's condition and treatment options with them. I have also reviewed and agree with the past medical, family and social history unless otherwise noted. All of the patient's questions were answered. Patient Care Team: Kell Loza MD as PCP - General (Geriatric Medicine) Jordon Santiago DO as Surgeon (General Surgery) Gaye Rodrigez RN as Registered Nurse [1] Outpatient Encounter Medications as of 07/05/2025 Medication Sig Dispense Refill citalopram (CeleXA) 20 MG tablet Take 20 mg by mouth daily. levothyroxine (Synthroid, Levoxyl) 125 MCG tablet Take 125 mcg by mouth daily. ondansetron ODT (Zofran-ODT) 4 MG disintegrating tablet Take 1 tablet (4 mg) by mouth every 8 hours as needed for nausea for up to 7 days. 21 tablet 0 oxyCODONE (Roxicodone) 5 MG immediate release tablet Take 1 tablet (5 mg) by mouth every 6 hours as needed for severe pain (7-10) for up to 5 days. 20 tablet 0 pantoprazole (ProtoNix) 40 MG EC tablet Take 40 mg by mouth daily. B Complex-C (SUPER B COMPLEX PO) Take 1 tablet by mouth daily. PATIENT STATES LAST TAKEN ON 06/19/25 (Patient not taking: Reported on 07/05/2025) biotin 5000 MCG capsule Take 1 capsule by mouth daily. PATIENT STATES LAST TAKEN ON 06/19/25 (Patient not taking: Reported on 07/05/2025) BLACK COHOSH PO Take by mouth daily. PATIENT STATES LAST TAKEN ON 06/19/25 (Patient not taking: Reported on 07/05/2025) Calcium Carbonate (CALCIUM 600 PO) Take 1 tablet by mouth daily. PATIENT STATES LAST TAKEN ON 06/19/25 (Patient not taking: Reported on 07/05/2025) calcium citrate 250 MG tablet Take 2 tablets (500 mg) by mouth 3 times daily. Take 2 tablets by mouth three times daily. 180 tablet 11 Cholecalciferol (Vitamin D) 50 MCG (2000 UT) capsule Take 2 capsules (100 mcg) by mouth daily. 60 capsule 11 Cyanocobalamin [address] 1 tablet (500 mcg) under the tongue daily. Place 500 mcg under the tongue to dissolve once daily 30 tablet 11 Multiple Vitamins-Minerals (Centrum Adults) tablet Take 2 tablets by mouth daily. 60 tablet 11 nystatin (Mycostatin) 502771 UNIT/ML suspension Take 5 mL (500,000 Units) by mouth 4 times daily. Swish in mouth and spit out. 280 mL 0 thiamine (Vitamin B-1) 50 MG tablet Take 1 tablet (50 mg) by mouth daily. Take 1 tablet by mouth daily. 30 tablet 11 [DISCONTINUED] Multiple Vitamins-Minerals (CENTRUM SILVER ULTRA WOMENS PO) Take 1 tablet by mouth daily. PATIENT STATES LAST TAKEN ON 06/19/25 (Patient not taking: Reported on 07/05/2025) [DISCONTINUED] oxyCODONE (Roxicodone) 5 MG immediate release tablet Take 1 tablet (5 mg) by mouth every 6 hours as needed for severe pain (7-10) for up to 5 days. 15 tablet 0 [DISCONTINUED] UNABLE TO FIND Take 4 tablets by mouth daily. Med Name: Focus Factor (Patient not taking: Reported on 06/07/2025) [] acetaminophen (Tylenol) tablet 1,000 mg [] ALPRAZolam (Xanax) disintegrating tablet 0.25 mg [] ceFAZolin (Ancef) 2,000 mg in sodium chloride 0.9 % 100 mL IVPB [] celecoxib (CeleBREX) capsule 400 mg [] prxLHVFYznscz-vtfzwzmekmy-miqqxkg rine (TAP) syringe [] diatrizoate meglumine-sodium (Gastrografin) 66-10 % solution 60 mL [] famotidine (Pepcid) 20 mg in sodium chloride (PF) 0.9 % 10 mL injection [] famotidine (Pepcid) tablet 20 mg [] heparin injection 5,000 Units [] ondansetron (Zofran) injection 4 mg [DISCONTINUED] acetaminophen (Ofirmev) IVPB 1,000 mg [DISCONTINUED] albuterol (2.5 MG/3ML) 0.083% nebulizer solution 2.5 mg [DISCONTINUED] citalopram (CeleXA) tablet 20 mg [DISCONTINUED] dexmedeTOMIDine HCl in NaCl (Precedex) injection [DISCONTINUED] dextrose 5 % and sodium chloride 0.45 % with KCl 20 mEq/L infusion [DISCONTINUED] diphenhydrAMINE (BENADryl) injection 12.5 mg [DISCONTINUED] enoxaparin (Lovenox) syringe 30 mg [DISCONTINUED] hydrALAZINE (Apresoline) injection 10 mg [DISCONTINUED] hydrALAZINE (Apresoline) injection 5 mg [DISCONTINUED] HYDROmorphone (Dilaudid) injection 0.25 mg [DISCONTINUED] HYDROmorphone (Dilaudid) injection 0.5 mg [DISCONTINUED] HYDROmorphone (Dilaudid) injection 0.5 mg [DISCONTINUED] ketamine injection [DISCONTINUED] labetalol (Normodyne,Trandate) injection 10 mg [DISCONTINUED] labetalol (Normodyne,Trandate) injection 5 mg [DISCONTINUED] lactated Ringer's (LR) infusion [DISCONTINUED] lactated ringers infusion [DISCONTINUED] levothyroxine (Synthroid, Levoxyl) tablet 125 mcg [DISCONTINUED] lidocaine PF (Xylocaine) 2 % injection [DISCONTINUED] LORazepam (Ativan) injection 0.5 mg [DISCONTINUED] midazolam (Versed) injection [DISCONTINUED] morphine injection 2 mg [DISCONTINUED] naloxone (Narcan) injection 0.4 mg [DISCONTINUED] ondansetron (Zofran) injection 4 mg [DISCONTINUED] ondansetron (Zofran) injection [DISCONTINUED] ondansetron ODT (Zofran-ODT) disintegrating tablet 4 mg [DISCONTINUED] oxyCODONE (Roxicodone) immediate release tablet 10 mg [DISCONTINUED] oxyCODONE (Roxicodone) immediate release tablet 10 mg 0 [DISCONTINUED] oxyCODONE (Roxicodone) immediate release tablet 5 mg [DISCONTINUED] oxyCODONE (Roxicodone) immediate release tablet 5 mg [DISCONTINUED] oxyCODONE (Roxicodone) immediate release tablet 5 mg 0 [DISCONTINUED] pantoprazole (ProtoNix) 40 mg in sodium chloride (PF) 0.9 % 10 mL injection [DISCONTINUED] Phenylephrine HCl (Pressors) 1 MG/10ML injection [DISCONTINUED] promethazine (Phenergan) injection 12.5 mg [DISCONTINUED] promethazine (Phenergan) suppository 12.5 mg [DISCONTINUED] promethazine (Phenergan) tablet 12.5 mg [DISCONTINUED] Propofol (Diprivan) injection [DISCONTINUED] rocuronium (ZeMuron) injection [DISCONTINUED] scopolamine (Transderm-Scop) patch 1 patch [DISCONTINUED] sodium chloride 0.9 % bolus 500 mL [DISCONTINUED] sodium chloride 0.9 % infusion [DISCONTINUED] sodium chloride 0.9 % infusion [DISCONTINUED] sodium chloride 0.9 % infusion [DISCONTINUED] sodium chloride 0.9 % infusion [DISCONTINUED] sodium chloride 0.9 % irrigation solution [DISCONTINUED] sodium chloride 0.9% (NS) flush 10 mL [DISCONTINUED] sodium chloride 0.9% (NS) flush 10 mL [DISCONTINUED] sodium chloride 0.9% (NS) flush 10 mL [DISCONTINUED] sodium chloride 0.9% (NS) flush 10 mL [DISCONTINUED] sodium chloride 0.9% (NS) flush 10 mL [DISCONTINUED] sodium chloride 0.9% (NS) flush 10 mL [DISCONTINUED] sodium chloride 0.9% (NS) flush 5-40 mL [DISCONTINUED] sodium chloride 0.9% (NS) flush 5-40 mL [DISCONTINUED] sterile water irrigation solution [DISCONTINUED] sugammadex (Bridion) injection No facility-administered encounter medications on file as of 07/05/2025. documented in this encounter [facility] 07-01-2025 History of Present illness Narrative Preliminary negative for leak. documented in this encounter [facility] 06-30-2025 Nurse Note Virtual Admission completed. Patient instructed to use call light to call for assistance if needed. [facility] 06-30-2025 Nurse Note Virtual Admission completed. Patient instructed to use call light to call for assistance if needed. documented in this encounter [facility] 06-30-2025 Hospital Discharge instructions Gaye Rodrigez RN - 06/30/2025 1:21 PM EDT Postoperative Patient Instructions Diana-en-Y Gastric Bypass Procedure If your surgical incisions are covered with steri-strips (white paper tape), leave them in place. It is ok if they fall off on their own. If your incisions have linh, they will be removed at your next office visit with your surgeon. If you feel the linh are catching or rubbing on your abdominal binder or clothing, you may place a BAND-AID over them. You may have an open incision on your left lower abdomen; keep this incision covered with clean, dry gauze. Change this dressing daily; no packing is needed. You may shower at any point. Wash incisions with Hibiclens or antibacterial soap. Pat dry. Do not use ointments, lotions or powders on your surgical incisions. If your incisions begin to look infected (e.g., swelling, redness, drainage or pain), please notify your regional ehs manager. Take your temperature twice a day for the first postoperative week. Call if your temperature is greater than 101 F. A fever could be a sign of infection or surgical complication. Resume your home medications as directed by your surgeon and your regional ehs manager. Make an appointment with your prescribing physician if you are taking medication for your blood pressure or diabetes. You will need close follow-up regarding your medical conditions, as you may soon be off many of these medications. No aspirin or aspirin containing medications should be taken unless directed by your surgeon. Do not take multiple medications at one time. Take two to three at a time. Wait 20 to 30 minutes before taking additional medications. Do not take any time-release, controlled-release, or extended-release medications. This includes any enteric coated medications. Your anatomy has been altered, and you no longer have the ability to absorb these medications efficiently. If you have been prescribed any of these types of medications, you should contact the prescribing physician for direction. It will not harm you to take these medications in the interim; however, absorption is questionable. Follow our food guidelines closely. Remember, clear liquids for the first two days after surgery. No sugar, caffeine or carbonation. Your fluid requirement is 64 oz. per day. You may advance to full liquids on post- op day three. This is in addition to the clear liquid diet. Do not take your calcium, vitamin B12, multivitamin or Actigall (if ordered) until after your one week appointment. All proton pump inhibitors (Prilosec, Protonix ect), should be started the day after you are discharged home. Important to take daily. No alcoholic beverages at all during the first 18 months post-op. No lifting, pushing or pulling over 15 lbs. for one month. You may go up and down stairs. No driving for one week after surgery. Do not drive if you are taking prescription pain medication. Walking as part of your daily activities is required immediately. It is recommended that you should walk for 5 minutes every hour you are awake to help decrease the risk of blood clots after surgery. Walking helps prevent blood clots from forming. A blood clot that forms in your legs or arms is called a Deep Vein Thrombosis (DVT). Signs of DVT include pain, redness, swelling and warmth. A blood clot that travels to your lungs is called a Pulmonary Embolism (PE). Symptoms of a PE include shortness of breath, pain with breathing, chest pain/discomfort or rapid heartbeat. You can begin exercising in four to six weeks but must be cleared by your surgeon at your one month appointment. Use your incentive spirometer from the hospital for the first postoperative week as instructed, ten times every other hour while awake. Prior to returning to work, you will be seen, evaluated and cleared by your surgeon. Remember, you will have pain! Take your pain medicine so that you are comfortable enough to cough, take deep breaths and walk. It is not unusual for lower left abdominal pain to return 10 to 14 days after surgery. Icing the area can reduce discomfort. Fatigue is quite common in the first postoperative week. Rest appropriately in response to this fatigue. Remember that mobility after surgery is very important. You must not remain in a sitting or recumbent position for long periods of time. If you have obstructive sleep apnea and have been prescribed a CPAP machine, you must continue to use this device after surgery. Please call the [facility] at [phone] if you have any questions or concerns during business hours: Saturday through Saturday, 8 a.m. to 4:30 p.m. The answering service may be called during non- business hours at [phone]. If you have a medical emergency, call 911 or go to the closest hospital emergency room. Call your surgeon for problems, or if you have any of the following: Temperature greater than 101 F. Take your temperature twice a day in the morning and evening until your first office visit Redness, pain, swelling or drainage from any of the incisions Inability to pass urine or have bowel movements ANY shortness of breath, chest pain, leg swelling or leg pain (in one or both of your legs) Rapid heart rate Nausea or vomiting with the inability to keep liquids down Bleeding from your rectum Frequently feeling dizzy or light-headed, inability to walk Abnormal drain color appearance if you have a drain Your one week and one month follow-up office visits with your surgeon at the [facility] are located in the discharge folder. These are required visits and important for your safety and recovery. Post-Op Diet Protocol for Patients Following Bariatric Surgery Post-op Day 1 You will begin your clear liquids as soon as your nurse notifies you that it is OK to start. You will drink 1 ounces of clear liquid (water, decaf tea, broth, jello, and any other sugar free, carbonation free, caffeine free drinks) every 30 minutes that you are awake. Post-Op Day 2 Continue your bariatric clear liquid diet, however, now you may drink 1 ounce of fluid every 15 minutes that you are awake. Post-op Day 3 Begin full liquid diet and continue until your 1 week post-op visit. On the full liquid diet you will have 3 meals per day. You will consume 1/4 cup or 2 ounces of food per meal. Meals can consist of the following: Protein shakes (be sure they contain <15 grams of sugar) Low fat Milk Romanian Yogurt Sugar free Pudding Cream of Wheat Strained, Creamy Soups *Be sure to continue to sip clear liquids throughout the day to reach goal of 64 ounces, waiting 30 minutes before and after meals to drink. You will continue to follow the full liquid diet until after you meet with your dietitian during your 1 week post-op office visit. The next diet phases will be reviewed and discussed with your during that visit. If you have questions about your diet(s), please contact the Bariatric Dietitians at [phone]. documented in this encounter [facility] 06-30-2025 Nurse Note Report called to Saray BENITO on H6. Pt's family updated. [facility] 06-30-2025 Miscellaneous Notes Report called to Saray BENITO on H6. Pt's family updated. Patients daughter February updated via phone documented in this encounter [facility] 06-30-2025 Nurse Note Patients daughter February updated via phone [facility] 06-30-2025 Note Patient: Jaime ortiz Procedure Summary Date: 06/30/25 Room / Location: [facility] OR [address] [place] [address] Operating Room Anesthesia Start: 729 Anesthesia Stop: 956 Procedures: LAPAROSCOPIC DIANA-EN-Y GASTRIC BYPASS (Abdomen) LIVER BIOPSY (Abdomen) HIATAL HERNIA REPAIR (Abdomen) Diagnosis: Morbid obesity with BMI of 40.0-44.9, adult (HCC) Surgeons: Jordon Santiago DO Responsible Provider: Jayden Donis MD Anesthesia Type: general, regional ASA Status: 3 Anesthesia Type: general, regional Vitals Value Taken Time BP 128/46 06/30/25 10:15 Temp 35.8 ?C (96.5 ?F) 06/30/25 09:53 Pulse 60 06/30/25 10:29 Resp 31 06/30/25 10:29 SpO2 97 % 06/30/25 10:29 Vitals shown include unfiled device data. Anesthesia Post Evaluation Patient location during evaluation: PACU Patient participation: complete - patient cannot participate Level of consciousness: age appropriate Pain management: satisfactory to patient Airway patency: patent Dental Injury: no Cardiovascular status: acceptable, blood pressure returned to baseline and hemodynamically stable Respiratory status: acceptable and spontaneous ventilation Hydration status: euvolemic Nausea/Vomiting: controlled No notable events documented. Patient can be discharged once all PACU criteria has been met. [facility] 06-30-2025 Note Patient: Jaime ortiz Procedure Summary Date: 06/30/25 Room / Location: [address] Operating Room Anesthesia Start: 729 Anesthesia Stop: 956 Procedures: LAPAROSCOPIC DIANA-EN-Y GASTRIC BYPASS (Abdomen) LIVER BIOPSY (Abdomen) HIATAL HERNIA REPAIR (Abdomen) Diagnosis: Morbid obesity with BMI of 40.0-44.9, adult (HCC) Surgeons: Jordon Santiago DO Responsible Provider: Jayden Donis MD Anesthesia Type: general, regional ASA Status: 3 Anesthesia Type: general, regional Vitals Value Taken Time BP 128/46 06/30/25 10:15 Temp 35.8 ?C (96.5 ?F) 06/30/25 09:53 Pulse 60 06/30/25 10:29 Resp 31 06/30/25 10:29 SpO2 97 % 06/30/25 10:29 Vitals shown include unfiled device data. Anesthesia Post Evaluation Patient participation: complete - patient participated Regional recovery expected within 48 hours: complete Level of consciousness: age appropriate No notable events documented. MIPS #[id number] PONV Patient received an inhalational anesthetic (4554F) Patient exhibits three or more risk factors for PONV (4556F) Patient received at aset 2 prophylactic Rx PONV anti-emtic agents of different classes preop and/or intraop (G9775) MIPS # 424 Perioperative Temperature Management Anesthesia time was 60 minutes or longer (4255F) Anesthesai administered was General (inhalational or TIVA) or Neuraxial block (X0424) At least one body temperature greater than 95.8F/35.5C achieved within the 30 mins immediately prior to or the 15 minutes immediately following anesthesia end time (G9771) MIPS #477 Multimodal Pain Management Not emergent case Patient was administered multimodal pain management (two or more drugs and/or interventions excluding systemic opioids) in the periopeartive period occurring at some time between 6 hours prior to anesthesia start time until discharged from PACU (G2148) MIPS #404 Anesthesiology Smoking Abstinence The patient is not a current smoker (e.g. cigarette, cigar, pipe, e-cigarette/vaping/marijuana) If no stop here (XX404) I completed my handoff to the receiving clinician during which we: 1. Identified the patient 2. Identified the responsible provider 3. Reviewed the pertinent medical history 4. Discussed the surgical course 5. Reviewed intra-op anesthesia management and issues during anesthesia 6. Set expectations for post-procedure period 7. Allowed opportunity for questions and acknowledgement of understanding. [facility] 06-30-2025 Note Airway Date/Time: 06/30/2025 7:44 AM Reason: scheduled General Information and Staff Patient location during procedure: Procedural Resident/FRUIT PICKER: Gómez Jordan APRN - FRUIT PICKER Performed: FRUIT PICKER and SRNA Patient Condition Indications for airway management: anesthesia Patient position: sniffing Sedation level: Asleep Final Airway Details Final airway type: endotracheal airway Successful airway: ETT Cuffed: yes Adjuncts used in placement: intubating stylet Endotracheal tube insertion site: oral Blade: Mitchell Blade size: #3 ETT size (mm): 7.0 Placement verified by: capnometry Measured from: lips ETT to lips (cm): 22 Number of attempts at approach: 1 [facility] 06-30-2025 Note Peripheral Block Time Out: 06/30/2025 7:36 AM Patient location during procedure: Procedural Start time: 06/30/2025 7:36 AM End time: 06/30/2025 7:36 AM Reason for block: at surgeon's request and post-op pain management Staffing Performed: FRUIT PICKER Resident/FRUIT PICKER: Arielle Watkins APRN - VICKI Preanesthetic Checklist Completed: patient identified, IV checked, site marked, risks and benefits discussed, surgical consent, monitors and equipment checked, pre-op evaluation and timeout performed Region: [place] Primary: TAP (Bupivacaine 0.375%/ Epi 1:200,000/ Dex 0.1mg/mL 40ml divided evenly bilateral) Secondary: Upper rectus (Bupivacaine 0.375%/ Epi 1:200,000/ Dex 0.1mg/mL 20ml divided evenly bilateral) Peripheral Block Patient position: supine Prep: ChloraPrep Patient monitoring: heart rate, 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 Needle Needle: 21G X 110 mm Additional Notes 06/30/2025 7:36 AM Assessment Injection assessment: negative aspiration for heme, no paresthesia on injection and incremental injection Heart rate change: no Slow fractionated injection: yes Required Documentation: Relevant anatomy identified (Nerves, Vessels, Muscles), Negative for blood on aspiration, Local anesthetic injected incrementally with intermittent aspiration every 5 mL, Normal resistance with injection, No EKG changes noted, No symptoms of toxicity, Local anesthetic spread visualized around nerves or plane. and Local anesthetic injected without difficultyMedications gilAOWQZyypie-dikabkqenpf-onizppb rine (TAP) syringe - Injection 60 mL - 06/30/2025 7:36:00 AM [facility] 06-30-2025 Attending History and physical note H&P reviewed. The patient was examined and there are no changes to the H&P. Source Note - Lorena Griffith APRN - DRY KILN BURNER - 06/22/2025 2:00 PM EDT Images from the original note were not included. Comprehensive Pre Surgical History and Physical ? Name: Jaime Oneill : 1965 (Age-59 y.o.) Date of Service: Pt seen/examined on 06/22/2025 Procedure Information Date/Time: 06/30/25 3309 Procedures: LAPAROSCOPIC DIANA-EN-Y GASTRIC BYPASS (Abdomen) - Length of procedure: 180min LIVER BIOPSY (Abdomen) HIATAL HERNIA REPAIR, POSSIBLE OPEN (Abdomen) Location: [facility] OR [address] [place] [address] Operating Room Surgeons: Jordon Santiago DO Chief Complaint: Morbid obesity with BMI of 40.0-44.9, adult (HCC) [E66.01, Z68.41] ASSESSMENT/PLAN: Plan based on PAT protocol for this intermediate level 2 risk procedure/surgery. Based on the below evaluation, the benefits of the planned procedure likely exceed the risks. The patient is medically optimized to proceed with the planned procedure without any further cardiopulmonary testing. 1) Morbid obesity with BMI of 40.0-44.9, adult (HCC) [E66.01, Z68.41] - Managed per surgery - Orders per PAT Protocol: none - labs and ekg 2) GERD - MEDS: PPI - stable - avoidance of triggers encouraged - Managed by PCP 3) Hypothyroidism - Treated with medication: Yes, With: synthroid, and Managed by: pcp 4) Depression and Anxiety - MEDS: celexa - feels controlled on medication - yes - Managed by pcp - Patient may benefit from antianxiety medication DOS 5) Former Smoker - Total pack years: 48 - Ordered EKG and CBC if more than 20 year total pack hx EKG: Encounter Date: 04/08/25 ECG 12 lead - CLINIC PERFORMED Narrative Sinus Rhythm Low voltage in precordial leads. ECHO and EF:None on file Pacer/Defib: No METS: >4 METS (Able to climb a flight of stairs with no chest pain or shortness of breath): Yes CLEARANCES: Yes PATIENT SUMMARY Jaime GOODE 59 y.o. female with Body mass index is 41.54 kg/m . Lap Diana En Y and Liver Bx w/HH Procedure DM[] HTN[] MICHELLE[] GERD[x] HL[] OA[] TOB[] Date of Surgery:06/30/25 NOTES MP PCP: INITIAL TESTING RESULTS Labwork [x] CMP, TSH, Fasting Lipid Profile, Mg, Zinc, Vit B1 (whole blood), Vit B12, 25-OH Vit D, Fe, Ferritin, Folate 03/10/25 TSH ok Tobacco [x] Serum Nicotine / Cotinine 04/30/25 [x] Negative [] Positive EGD [x] Dx: [x] GERD [] Dyspepsia [] Other 03/25/25 Pathology [x] H. pylori [x] Negative [] Positive UGI [x] [] not ordered if patient is planning on Diana En Y 04/20/25-unremarkable US Abdomen [] [x] not ordered if S/P Radha MICHELLE eval [] [] On CPAP / Obtain settings Not tested Hematology [] [] Hypercoagulation panel Toxicology [] [] Urine drug screen [] EtOH screen Addtional [] [] Hgb A1c 03/10/25 5.4 INITIAL CONSULTATIONS CLEARANCE / MANAGEMENT Psychology [x] Cleared 03/17/25 Eval 03/02/25. Dietitian [x] Dashawn Workman Valve Grinder Cleared: 02/25/25 Cardiology [x] Jf Irwin APRN Cleared 04/08/25 Pulmonary [x] Desmondstenmariela 02/19/25 Referred to pulmonary for bariatric clearance. ESS 3 and STOP BANG demonstrates an intermediate risk for MICHELLE. -ARISCAT score indicates that this patient is low risk for post-operative complications including, but not limited to, atelectasis, respiratory infection, exacerbation of underlying chronic lung disease, hypoxia and respiratory failure. - Recommend early ambulation, pulmonary toilet to prevent post-operative complications. 02/19/25 Others [] []Heme/Onc []Psychiatry []Pain mgmt PSD [x] Physician supervised diet: []None [x]3 mos []6 mos There is only 1 note from July that is still good but now too large of a gap to even use that. She should do the 3 here. Preop diet [] Preop low calory diet: []None []1 wk [x]2 wks []Ext. FINAL PRE-OP TESTING RESULTS Labwork [x] [x]Pre-op CBC [x]BMP []Serum Nicotine / Cotinine EKG [x] CXR [x] POST-OP MEDICATIONS Ulcer Ppx [x] Omeprazole 20 mg PO [x]QD []BID Gallstone Ppx [] Ursodiol 300 mg []BID s/p radha DVT Ppx [] DVT prophylaxis per final preop visit estimated risk Estimated calculated risk: 0.31% Visit Type: Pre-Admission Testing Visit Labs Ordered: As ordered by surgeon Sleep Referral Ordered: NO - NEGATIVE SCREEN PER SLEEP REFERRAL PROTOCOL Total time spent (which include face to face and non face to face encounters) : 35 minutes Toxic drug monitoring/narrow therapeutic index drug monitoring : # Drug name : multiple # Route administered : PO # Method of monitoring : labs, ekg PAT Protocol referenced includes: 1. Anesthesia Lab Protocol Orders 2. Perioperative Cardiovascular Risk Assessment 3. Anesthesia Assessment 4. Pain Assessment and Acute Pain Service Consult (if appropriate) 5. Shower/Wash Order (for designated surgeries) 6. MICHELLE Screen and Sleep Clinic Referral (if appropriate) History Of Present Illness: 59 y.o. female who we are asked to see/evaluate [place] [id number] for pre-operative evaluation prior to ? LAPAROSCOPIC DIANA-EN-Y GASTRIC BYPASS (Abdomen) - Length of procedure: 180min LIVER BIOPSY (Abdomen) HIATAL HERNIA REPAIR, POSSIBLE OPEN (Abdomen) From last office visit with Dr. Santiago on 06/07/2025: The patient is a 59 y.o. year old female with morbid obesity, who stands Height: 5' 5 (165.1 cm) tall with a weight of Weight: 253 lb 3.2 oz (115 kg) , resulting in a BMI of Body mass index is 42.13 kg/m .. The patient is scheduled to undergo weight loss surgery to treat the following comorbid conditions that are directly associated with or indirectly associated with obesity: GERD - moderate, taking meds but still having symptoms Hypothyroid [Medical History] [Medical History] Past Medical History Diagnosis Date Anxiety Back pain Bipolar disorder (HCC) Depression GERD (gastroesophageal reflux disease) Hiatal hernia Morbid obesity, unspecified obesity type (HCC) 01/21/2025 Thyroid disease She attended the weight loss surgery seminar prior to their initial surgical evaluation, and attended pre-op class on . The patient is scheduled for Laparoscopic Diana-en-Y Gastric Bypass. She is here today to review the details of surgery prior to their date of surgery: 06/30/25 The patient acknowledges and understands the risks, benefits, and options we have discussed, as outlined in the Additional Informed Consent for this procedure. Patient also understands the importance of pre and post-operative recommendations, including the Pre-Operative diet and regular post-operative follow up care. The importance of ambulation and incentive spirometry was also discussed. All questions of this patient and any family members present have been answered to their satisfaction. Patient denies exertional chest pain/shortness of breath. Patient denies hx of CAD, Cardiac stents, CHF, [place], TIA/CVA, diabetes, COPD, asthma, MICHELLE, DVT/PE or seizures. Past Medical History: Past Medical History: No date: Anxiety No date: Back pain No date: Bipolar disorder (HCC) No date: Depression No date: GERD (gastroesophageal reflux disease) No date: Hiatal hernia No date: Hypothyroidism 01/21/2025: Morbid obesity, unspecified obesity type (HCC) No date: Thyroid disease Past Surgical History: Past Surgical History: 2005: CHOLECYSTECTOMY 2006: HYSTERECTOMY Comment: partial Medications Prior to Admission: Prior to Admission medications Medication Sig Start Date End Date Taking? Authorizing Provider B Complex-C (SUPER B COMPLEX PO) Take 1 tablet by mouth daily. PATIENT STATES LAST TAKEN ON 06/19/25 Yes Historical Provider, biotin 5000 MCG capsule Take 1 capsule by mouth daily. PATIENT STATES LAST TAKEN ON 06/19/25 Yes Historical Provider, MD HAUSER COHELBERT PO Take by mouth daily. PATIENT STATES LAST TAKEN ON 06/19/25 Yes Historical Provider, Calcium Carbonate (CALCIUM 600 PO) Take 1 tablet by mouth daily. PATIENT STATES LAST TAKEN ON 06/19/25 Yes Historical Provider, citalopram (CeleXA) 20 MG tablet Take 20 mg by mouth daily. 01/14/25 Yes Historical ProviderMD levothyroxine (Synthroid, Levoxyl) 125 MCG tablet Take 125 mcg by mouth daily. 10/28/24 Yes Historical Provider, Multiple Vitamins-Minerals (CENTRUM SILVER ULTRA WOMENS PO) Take 1 tablet by mouth daily. PATIENT STATES LAST TAKEN ON 06/19/25 Yes Historical Provider, pantoprazole (ProtoNix) 40 MG EC tablet Take 40 mg by mouth daily. 01/12/25 Yes Historical Provider, UNABLE TO FIND Take 4 tablets by mouth daily. Med Name: Focus Factor Patient not taking: Reported on 06/07/2025 Historical Provider, CHRONIC NARCOTIC USAGE: No Allergies: Patient has no known allergies. Is it okay to take Acetaminophen: Yes Social History: TOBACCO: reports that she has quit smoking. Her smoking use included cigarettes. She started smoking about 48 years ago. She has a 44.8 pack-year smoking history. She has never used smokeless tobacco. ETOH: reports that she does not currently use alcohol. Social History Substance and Sexual Activity Drug Use Never Family History: Family History[1] REVIEW OF SYSTEMS: Review of Systems Constitutional: Negative. Negative for chills, diaphoresis and fever. HENT: Negative. Negative for facial swelling, sore throat and trouble swallowing. Respiratory: Negative. Negative for apnea, cough, chest tightness, shortness of breath and wheezing. Cardiovascular: Negative. Negative for chest pain, palpitations and leg swelling. Gastrointestinal: Negative for diarrhea, nausea and vomiting. Genitourinary: Negative. Negative for dysuria. Musculoskeletal: Negative. Skin: Negative for color change, pallor, rash and wound. Neurological: Negative. Psychiatric/Behavioral: Negative. Negative for hallucinations, self-injury and suicidal ideas. All other systems reviewed and are negative. Physical Exam: Physical Exam Vitals and nursing note reviewed. Constitutional: General: She is not in acute distress. Appearance: She is not ill-appearing or toxic-appearing. HENT: Head: Normocephalic and atraumatic. Nose: Nose normal. Mouth/Throat: Mouth: Mucous membranes are moist. Eyes: Pupils: Pupils are equal, round, and reactive to light. Neck: Vascular: No carotid bruit. Cardiovascular: Rate and Rhythm: Normal rate and regular rhythm. Pulses: Normal pulses. Heart sounds: Normal heart sounds. No murmur heard. No friction rub. No gallop. Pulmonary: Effort: Pulmonary effort is normal. No respiratory distress. Breath sounds: Normal breath sounds. No wheezing. Abdominal: General: Abdomen is flat. Palpations: Abdomen is soft. Tenderness: There is no abdominal tenderness. Musculoskeletal: General: Normal range of motion. Cervical back: Normal range of motion and neck supple. No rigidity or tenderness. Lymphadenopathy: Cervical: No cervical adenopathy. Skin: General: Skin is warm and dry. Capillary Refill: Capillary refill takes less than 2 seconds. Neurological: General: No focal deficit present. Mental Status: She is alert and oriented to person, place, and time. Cranial Nerves: No cranial nerve deficit. Psychiatric: Mood and Affect: Mood normal. Behavior: Behavior normal. Vitals: Vitals Value Taken Time BP 108/82 06/22/25 14:04 Temp 36.2 C (97.2 F) 06/22/25 14:04 Pulse 91 06/22/25 14:04 Resp 16 06/22/25 14:04 SpO2 98 % 06/22/25 14:04 Labs: Lab Results Component Value Date WBC 8.7 06/22/2025 HGB 12.6 06/22/2025 HCT 38.6 06/22/2025 MCV 91.0 06/22/2025 PLT 238 06/22/2025 Lab Results Component Value Date NA 140 03/10/2025 K 4.5 03/10/2025 CL 103 03/10/2025 CO2 27 03/10/2025 BUN 21 03/10/2025 CREATININE 0.83 03/10/2025 GLUCOSE 89 03/10/2025 CALCIUM 9.5 03/10/2025 PROT 8.0 03/10/2025 ALKPHOS 86 03/10/2025 AST 40 (H) 03/10/2025 ALT 37 (H) 03/10/2025 EGFR 80.3 03/10/2025 PAT Pain Score: Pain Score: 0 - No pain Postop Pain Management Plan (Pain consult ordered?): Pain consult not indicated at this time ? Electronically signed by: Lorena Griffith APRN - DRY KILN BURNER Date: 06/22/2025 at 3:36 PM [1] Family History Problem Relation Name Age of Onset Obesity Mother May sterlin Diabetes Mother May sterlin High Blood Pressure Mother May jaun Obesity Father Jason Ralphe Diabetes Father Jason Ralphe High Blood Pressure Father Jason Josue Heart disease Father Jason Ralphe Stroke Father Jason Josue Heart disease Sister Zaynab Potts Obesity Sister Zaynab Potts Heart disease Brother Jason High Blood Pressure Brother Jason Cosigned by Nithin Zelaya DO at 06/22/2025 9:48 PM EDT [employer] Work Phone: 06-30-2025 History and physical note H&P reviewed. The patient was examined and there are no changes to the H&P. Source Note - KENTON Looney CNP - 06/22/2025 2:00 PM EDT Images from the original note were not included. Comprehensive Pre Surgical History and Physical ? Name: Jaime Oneill : 1965 (Age-59 y.o.) Date of Service: Pt seen/examined on 06/22/2025 Procedure Information Date/Time: 06/30/25 0730 Procedures: LAPAROSCOPIC DIANA-EN-Y GASTRIC BYPASS (Abdomen) - Length of procedure: 180min LIVER BIOPSY (Abdomen) HIATAL HERNIA REPAIR, POSSIBLE OPEN (Abdomen) Location: [facility] OR [address] [place] [address] Operating Room Surgeons: Jordon Santiago DO Chief Complaint: Morbid obesity with BMI of 40.0-44.9, adult (HCC) [E66.01, Z68.41] ASSESSMENT/PLAN: Plan based on PAT protocol for this intermediate level 2 risk procedure/surgery. Based on the below evaluation, the benefits of the planned procedure likely exceed the risks. The patient is medically optimized to proceed with the planned procedure without any further cardiopulmonary testing. 1) Morbid obesity with BMI of 40.0-44.9, adult (HCC) [E66.01, Z68.41] - Managed per surgery - Orders per PAT Protocol: none - labs and ekg 2) GERD - MEDS: PPI - stable - avoidance of triggers encouraged - Managed by PCP 3) Hypothyroidism - Treated with medication: Yes, With: synthroid, and Managed by: pcp 4) Depression and Anxiety - MEDS: celexa - feels controlled on medication - yes - Managed by pcp - Patient may benefit from antianxiety medication DOS 5) Former Smoker - Total pack years: 48 - Ordered EKG and CBC if more than 20 year total pack hx EKG: Encounter Date: 04/08/25 ECG 12 lead - CLINIC PERFORMED Narrative Sinus Rhythm Low voltage in precordial leads. ECHO and EF:None on file Pacer/Defib: No METS: >4 METS (Able to climb a flight of stairs with no chest pain or shortness of breath): Yes CLEARANCES: Yes PATIENT SUMMARY Jaime GOODE 59 y.o. female with Body mass index is 41.54 kg/m . Lap Diana En Y and Liver Bx w/HH Procedure DM[] HTN[] MICHELLE[] GERD[x] HL[] OA[] TOB[] Date of Surgery:06/30/25 NOTES MP PCP: INITIAL TESTING RESULTS Labwork [x] CMP, TSH, Fasting Lipid Profile, Mg, Zinc, Vit B1 (whole blood), Vit B12, 25-OH Vit D, Fe, Ferritin, Folate 03/10/25 TSH ok Tobacco [x] Serum Nicotine / Cotinine 04/30/25 [x] Negative [] Positive EGD [x] Dx: [x] GERD [] Dyspepsia [] Other 03/25/25 Pathology [x] H. pylori [x] Negative [] Positive UGI [x] [] not ordered if patient is planning on Diana En Y 04/20/25-unremarkable US Abdomen [] [x] not ordered if S/P Radha MICHELLE eval [] [] On CPAP / Obtain settings Not tested Hematology [] [] Hypercoagulation panel Toxicology [] [] Urine drug screen [] EtOH screen Addtional [] [] Hgb A1c 03/10/25 5.4 INITIAL CONSULTATIONS CLEARANCE / MANAGEMENT Psychology [x] Cleared 03/17/25 Eval 03/02/25. Dietitian [x] Dashawn Workman Valve Grinder Cleared: 02/25/25 Cardiology [x] Jf Irwin APRN Cleared 04/08/25 Pulmonary [x] Mele 02/19/25 Referred to pulmonary for bariatric clearance. ESS 3 and STOP BANG demonstrates an intermediate risk for MICHELLE. -ARISCAT score indicates that this patient is low risk for post-operative complications including, but not limited to, atelectasis, respiratory infection, exacerbation of underlying chronic lung disease, hypoxia and respiratory failure. - Recommend early ambulation, pulmonary toilet to prevent post-operative complications. 02/19/25 Others [] []Heme/Onc []Psychiatry []Pain mgmt PSD [x] Physician supervised diet: []None [x]3 mos []6 mos There is only 1 note from July that is still good but now too large of a gap to even use that. She should do the 3 here. Preop diet [] Preop low calory diet: []None []1 wk [x]2 wks []Ext. FINAL PRE-OP TESTING RESULTS Labwork [x] [x]Pre-op CBC [x]BMP []Serum Nicotine / Cotinine EKG [x] CXR [x] POST-OP MEDICATIONS Ulcer Ppx [x] Omeprazole 20 mg PO [x]QD []BID Gallstone Ppx [] Ursodiol 300 mg []BID s/p radha DVT Ppx [] DVT prophylaxis per final preop visit estimated risk Estimated calculated risk: 0.31% Visit Type: Pre-Admission Testing Visit Labs Ordered: As ordered by surgeon Sleep Referral Ordered: NO - NEGATIVE SCREEN PER SLEEP REFERRAL PROTOCOL Total time spent (which include face to face and non face to face encounters) : 35 minutes Toxic drug monitoring/narrow therapeutic index drug monitoring : # Drug name : multiple # Route administered : PO # Method of monitoring : labs, ekg PAT Protocol referenced includes: 1. Anesthesia Lab Protocol Orders 2. Perioperative Cardiovascular Risk Assessment 3. Anesthesia Assessment 4. Pain Assessment and Acute Pain Service Consult (if appropriate) 5. Shower/Wash Order (for designated surgeries) 6. MICHELLE Screen and Sleep Clinic Referral (if appropriate) History Of Present Illness: 59 y.o. female who we are asked to see/evaluate by [facility] 02 for pre-operative evaluation prior to ? LAPAROSCOPIC DIANA-EN-Y GASTRIC BYPASS (Abdomen) - Length of procedure: 180min LIVER BIOPSY (Abdomen) HIATAL HERNIA REPAIR, POSSIBLE OPEN (Abdomen) From last office visit with Dr. Santiago on 06/07/2025: The patient is a 59 y.o. year old female with morbid obesity, who stands Height: 5' 5 (165.1 cm) tall with a weight of Weight: 253 lb 3.2 oz (115 kg) , resulting in a BMI of Body mass index is 42.13 kg/m .. The patient is scheduled to undergo weight loss surgery to treat the following comorbid conditions that are directly associated with or indirectly associated with obesity: GERD - moderate, taking meds but still having symptoms Hypothyroid [Medical History] [Medical History] Past Medical History Diagnosis Date Anxiety Back pain Bipolar disorder (HCC) Depression GERD (gastroesophageal reflux disease) Hiatal hernia Morbid obesity, unspecified obesity type (HCC) 01/21/2025 Thyroid disease She attended the weight loss surgery seminar prior to their initial surgical evaluation, and attended pre-op class on . The patient is scheduled for Laparoscopic Diana-en-Y Gastric Bypass. She is here today to review the details of surgery prior to their date of surgery: 06/30/25 The patient acknowledges and understands the risks, benefits, and options we have discussed, as outlined in the Additional Informed Consent for this procedure. Patient also understands the importance of pre and post-operative recommendations, including the Pre-Operative diet and regular post-operative follow up care. The importance of ambulation and incentive spirometry was also discussed. All questions of this patient and any family members present have been answered to their satisfaction. Patient denies exertional chest pain/shortness of breath. Patient denies hx of CAD, Cardiac stents, CHF, [place], TIA/CVA, diabetes, COPD, asthma, MICHELLE, DVT/PE or seizures. Past Medical History: Past Medical History: No date: Anxiety No date: Back pain No date: Bipolar disorder (HCC) No date: Depression No date: GERD (gastroesophageal reflux disease) No date: Hiatal hernia No date: Hypothyroidism 01/21/2025: Morbid obesity, unspecified obesity type (HCC) No date: Thyroid disease Past Surgical History: Past Surgical History: 2005: CHOLECYSTECTOMY 2006: HYSTERECTOMY Comment: partial Medications Prior to Admission: Prior to Admission medications Medication Sig Start Date End Date Taking? Authorizing Provider B Complex-C (SUPER B COMPLEX PO) Take 1 tablet by mouth daily. PATIENT STATES LAST TAKEN ON 06/19/25 Yes Historical ProviderMD biotin 5000 MCG capsule Take 1 capsule by mouth daily. PATIENT STATES LAST TAKEN ON 06/19/25 Yes Historical Provider, BLACK COHOSH PO Take by mouth daily. PATIENT STATES LAST TAKEN ON 06/19/25 Yes Historical Provider, Calcium Carbonate (CALCIUM 600 PO) Take 1 tablet by mouth daily. PATIENT STATES LAST TAKEN ON 06/19/25 Yes Historical ProviderMD citalopram (CeleXA) 20 MG tablet Take 20 mg by mouth daily. 01/14/25 Yes Historical Provider, levothyroxine (Synthroid, Levoxyl) 125 MCG tablet Take 125 mcg by mouth daily. 10/28/24 Yes Historical ProviderMD Multiple Vitamins-Minerals (CENTRUM SILVER ULTRA WOMENS PO) Take 1 tablet by mouth daily. PATIENT STATES LAST TAKEN ON 06/19/25 Yes Historical Provider, pantoprazole (ProtoNix) 40 MG EC tablet Take 40 mg by mouth daily. 01/12/25 Yes Historical ProviderMD UNABLE TO FIND Take 4 tablets by mouth daily. Med Name: Focus Factor Patient not taking: Reported on 06/07/2025 Historical ProviderMD CHRONIC NARCOTIC USAGE: No Allergies: Patient has no known allergies. Is it okay to take Acetaminophen: Yes Social History: TOBACCO: reports that she has quit smoking. Her smoking use included cigarettes. She started smoking about 48 years ago. She has a 44.8 pack-year smoking history. She has never used smokeless tobacco. ETOH: reports that she does not currently use alcohol. Social History Substance and Sexual Activity Drug Use Never Family History: Family History[1] REVIEW OF SYSTEMS: Review of Systems Constitutional: Negative. Negative for chills, diaphoresis and fever. HENT: Negative. Negative for facial swelling, sore throat and trouble swallowing. Respiratory: Negative. Negative for apnea, cough, chest tightness, shortness of breath and wheezing. Cardiovascular: Negative. Negative for chest pain, palpitations and leg swelling. Gastrointestinal: Negative for diarrhea, nausea and vomiting. Genitourinary: Negative. Negative for dysuria. Musculoskeletal: Negative. Skin: Negative for color change, pallor, rash and wound. Neurological: Negative. Psychiatric/Behavioral: Negative. Negative for hallucinations, self-injury and suicidal ideas. All other systems reviewed and are negative. Physical Exam: Physical Exam Vitals and nursing note reviewed. Constitutional: General: She is not in acute distress. Appearance: She is not ill-appearing or toxic-appearing. HENT: Head: Normocephalic and atraumatic. Nose: Nose normal. Mouth/Throat: Mouth: Mucous membranes are moist. Eyes: Pupils: Pupils are equal, round, and reactive to light. Neck: Vascular: No carotid bruit. Cardiovascular: Rate and Rhythm: Normal rate and regular rhythm. Pulses: Normal pulses. Heart sounds: Normal heart sounds. No murmur heard. No friction rub. No gallop. Pulmonary: Effort: Pulmonary effort is normal. No respiratory distress. Breath sounds: Normal breath sounds. No wheezing. Abdominal: General: Abdomen is flat. Palpations: Abdomen is soft. Tenderness: There is no abdominal tenderness. Musculoskeletal: General: Normal range of motion. Cervical back: Normal range of motion and neck supple. No rigidity or tenderness. Lymphadenopathy: Cervical: No cervical adenopathy. Skin: General: Skin is warm and dry. Capillary Refill: Capillary refill takes less than 2 seconds. Neurological: General: No focal deficit present. Mental Status: She is alert and oriented to person, place, and time. Cranial Nerves: No cranial nerve deficit. Psychiatric: Mood and Affect: Mood normal. Behavior: Behavior normal. Vitals: Vitals Value Taken Time BP 108/82 06/22/25 14:04 Temp 36.2 C (97.2 F) 06/22/25 14:04 Pulse 91 06/22/25 14:04 Resp 16 06/22/25 14:04 SpO2 98 % 06/22/25 14:04 Labs: Lab Results Component Value Date WBC 8.7 06/22/2025 HGB 12.6 06/22/2025 HCT 38.6 06/22/2025 MCV 91.0 06/22/2025 PLT 238 06/22/2025 Lab Results Component Value Date NA 140 03/10/2025 K 4.5 03/10/2025 CL 103 03/10/2025 CO2 27 03/10/2025 BUN 21 03/10/2025 CREATININE 0.83 03/10/2025 GLUCOSE 89 03/10/2025 CALCIUM 9.5 03/10/2025 PROT 8.0 03/10/2025 ALKPHOS 86 03/10/2025 AST 40 (H) 03/10/2025 ALT 37 (H) 03/10/2025 EGFR 80.3 03/10/2025 PAT Pain Score: Pain Score: 0 - No pain Postop Pain Management Plan (Pain consult ordered?): Pain consult not indicated at this time ? Electronically signed by: KENTON Higgins CNP Date: 06/22/2025 at 3:36 PM [1] Family History Problem Relation Name Age of Onset Obesity Mother May sterlin Diabetes Mother May sterliset High Blood Pressure Mother May sterliset Obesity Father Jason Josue Diabetes Father Jason Josue High Blood Pressure Father Jason Josue Heart disease Father Jason Josue Stroke Father Jason Josue Heart disease Sister Zaynab Delroy Obesity Sister Zaynab Delroy Heart disease Brother Jason High Blood Pressure Brother Jason Cosigned by Nithin Zelaya DO at 06/22/2025 9:48 PM EDT documented in this encounter [facility] 06-30-2025 Note H&P reviewed. The maura palmer was examined and there are no changes to the H&P. [facility] 06-22-2025 Note Patient: Jaime ortiz Procedure Information Date/Time: 06/30/25 0730 Procedures: LAPAROSCOPIC DIANA-EN-Y GASTRIC BYPASS (Abdomen) - Length of procedure: 180min LIVER BIOPSY (Abdomen) HIATAL HERNIA REPAIR, POSSIBLE OPEN (Abdomen) Location: [facility] OR [facility] Operating Room Surgeons: Jordon Santiago DO Relevant Problems Endo (+) Hypothyroidism GI (+) GERD (gastroesophageal reflux disease) Neuro/Psych (+) Major depressive disorder Past Medical History: Past Medical History: No date: Anxiety No date: Back pain No date: Bipolar disorder (HCC) No date: Depression No date: GERD (gastroesophageal reflux disease) No date: Hiatal hernia No date: Hypothyroidism 01/21/2025: Morbid obesity, unspecified obesity type (HCC) No date: Thyroid disease Past Surgical History: Past Surgical History: 2005: CHOLECYSTECTOMY 2006: HYSTERECTOMY Comment: partial Social History: TOBACCO: reports that she has quit smoking. Her smoking use included cigarettes. She started smoking about 48 years ago. She has a 44.8 pack-year smoking history. She has never used smokeless tobacco. ETOH: reports that she does not currently use alcohol. Social History Substance and Sexual Activity Drug Use Never Family History: Family History[1] Screening: Postmenopausal Clinical information reviewed: Tobacco Allergies Meds Med Hx Surg Hx OB Status Fam Hx Soc Hx Physical Exam Airway Mallampati: II TM distance: >3 FB Neck ROM: full Mouth Open: normalendotracheal tube not in place Cardiovascular Dental (+) Missing Pulmonary Abdominal Anesthesia Plan Any family history or previous problems with anesthesia no We discussed risks, benefits, alternatives and likelihood of success with the Patient. ASA 3 general and regional Any family history or previous problems with anesthesia noUse of blood products discussed with who consented to blood products. The patient is not a current smoker. Patient was not previously instructed to abstain from smoking on day of procedure. patient is NPO appropriate ERAS Type 06/29/25 Chart reviewed. DOS orders for anesthesia placed according to ERAS protocol. General eras Rin Benitez APRN - DRY KILN BURNER MICHELLE Screening STOP-Bang Total Score: 4 Labs: Lab Results Component Value Date WBC 5.7 03/10/2025 HGB 13.3 03/10/2025 HCT 41.0 03/10/2025 MCV 91.5 03/10/2025 PLT 263 03/10/2025 Lab Results Component Value Date NA 140 03/10/2025 K 4.5 03/10/2025 CL 103 03/10/2025 CO2 27 03/10/2025 BUN 21 03/10/2025 CREATININE 0.83 03/10/2025 GLUCOSE 89 03/10/2025 CALCIUM 9.5 03/10/2025 PROT 8.0 03/10/2025 ALKPHOS 86 03/10/2025 AST 40 (H) 03/10/2025 ALT 37 (H) 03/10/2025 EGFR 80.3 03/10/2025 Pain Score: 0 - No pain No echocardiogram results found for the past 14 days 04/08/25 ECG 12-LEAD 06/15/2025 5:31 PM (Final) Narrative Sinus Rhythm Low voltage in precordial leads. Signed by: Otto Perkins MD on 06/15/2025 5:31 PM Equipment Requests: Additional Equipment Requests Block Team [1] Family History Problem Relation Name Age of Onset Obesity Mother May jaun Diabetes Mother May jaun High Blood Pressure Mother May sterliset Obesity Father Jason Josue Diabetes Father Jason Josue High Blood Pressure Father Jason Josue Heart disease Father Jason Josue Stroke Father Jason Josue Heart disease Sister Zaynab Potts Obesity Sister Zaynab Potts Heart disease Brother Jason High Blood Pressure Brother Jason [facility] 06-22-2025 Note Comprehensive Pre Louise rgical History and Physical ? Name: Jaime Oneill : 1965 (Age-59 y.o.) Date of Service: Pt seen/examined on 06/22/2025 Procedure Information Date/Time: 06/30/25 0814 Procedures: LAPAROSCOPIC DIANA-EN-Y GASTRIC BYPASS (Abdomen) - Length of procedure: 180min LIVER BIOPSY (Abdomen) HIATAL HERNIA REPAIR, POSSIBLE OPEN (Abdomen) Location: [facility] OR [address] [place] [address] Operating Room Surgeons: Jordon Santiago DO Chief Complaint: Morbid obesity with BMI of 40.0-44.9, adult (HCC) [E66.01, Z68.41] ASSESSMENT/PLAN: Plan based on PAT protocol for this intermediate level 2 risk procedure/surgery. Based on the below evaluation, the benefits of the planned procedure likely exceed the risks. The patient is medically optimized to proceed with the planned procedure without any further cardiopulmonary testing. 1) Morbid obesity with BMI of 40.0-44.9, adult (HCC) [E66.01, Z68.41] - Managed per surgery - Orders per PAT Protocol: none - labs and ekg 2) GERD - MEDS: PPI - stable - avoidance of triggers encouraged - Managed by PCP 3) Hypothyroidism - Treated with medication: Yes, With: synthroid, and Managed by: pcp 4) Depression and Anxiety - MEDS: celexa - feels controlled on medication - yes - Managed by pcp - Patient may benefit from antianxiety medication DOS 5) Former Smoker - Total pack years: 48 - Ordered EKG and CBC if more than 20 year total pack hx EKG: Encounter Date: 04/08/25 ECG 12 lead - CLINIC PERFORMED Narrative Sinus Rhythm Low voltage in precordial leads. ECHO and EF:None on file Pacer/Defib: No METS: >4 METS (Able to climb a flight of stairs with no chest pain or shortness of breath): Yes CLEARANCES: Yes PATIENT SUMMARY Jaime GOODE 59 y.o. female with Body mass index is 41.54 kg/m?. Lap Diana En Y and Liver Bx w/HH Procedure DM[] HTN[] MICHELLE[] GERD[x] HL[] OA[] TOB[] Date of Surgery:06/30/25 NOTES MP PCP: INITIAL TESTING RESULTS Labwork [x] CMP, TSH, Fasting Lipid Profile, Mg, Zinc, Vit B1 (whole blood), Vit B12, 25-OH Vit D, Fe, Ferritin, Folate 03/10/25 TSH ok Tobacco [x] Serum Nicotine / Cotinine 04/30/25 [x] Negative [] Positive EGD [x] Dx: [x] GERD [] Dyspepsia [] Other 03/25/25 Pathology [x] H. pylori [x] Negative [] Positive UGI [x] [] not ordered if patient is planning on Diana En Y 04/20/25-unremarkable US Abdomen [] [x] not ordered if S/P Radha MICHELLE eval [] [] On CPAP / Obtain settings Not tested Hematology [] [] Hypercoagulation panel Toxicology [] [] Urine drug screen [] EtOH screen Addtional [] [] Hgb A1c 03/10/25 5.4 INITIAL CONSULTATIONS CLEARANCE / MANAGEMENT Psychology [x] Cleared 03/17/25 Eval 03/02/25. Dietitian [x] Dashawn Workman Valve Grinder Cleared: 02/25/25 Cardiology [x] Jf Irwin APRN Cleared 04/08/25 Pulmonary [x] Mele 02/19/25 Referred to pulmonary for bariatric clearance. ESS 3 and STOP BANG demonstrates an intermediate risk for MICHELLE. -ARISCAT score indicates that this patient is low risk for post-operative complications including, but not limited to, atelectasis, respiratory infection, exacerbation of underlying chronic lung disease, hypoxia and respiratory failure. - Recommend early ambulation, pulmonary toilet to prevent post-operative complications. 02/19/25 Others [] []Heme/Onc []Psychiatry []Pain mgmt PSD [x] Physician supervised diet: []None [x]3 mos []6 mos There is only 1 note from July that is still good but now too large of a gap to even use that. She should do the 3 here. Preop diet [] Preop low calory diet: []None []1 wk [x]2 wks []Ext. FINAL PRE-OP TESTING RESULTS Labwork [x] [x]Pre-op CBC [x]BMP []Serum Nicotine / Cotinine EKG [x] CXR [x] POST-OP MEDICATIONS Ulcer Ppx [x] Omeprazole 20 mg PO [x]QD []BID Gallstone Ppx [] Ursodiol 300 mg []BID s/p radha DVT Ppx [] DVT prophylaxis per final preop visit estimated risk Estimated calculated risk: 0.31% Visit Type: Pre-Admission Testing Visit Labs Ordered: As ordered by surgeon Sleep Referral Ordered: NO - NEGATIVE SCREEN PER SLEEP REFERRAL PROTOCOL Total time spent (which include face to face and non face to face encounters) : 35 minutes Toxic drug monitoring/narrow therapeutic index drug monitoring : # Drug name : multiple # Route administered : PO # Method of monitoring : labs, ekg PAT Protocol referenced includes: 1. Anesthesia Lab Protocol Orders 2. Perioperative Cardiovascular Risk Assessment 3. Anesthesia Assessment 4. Pain Assessment and Acute Pain Service Consult (if appropriate) 5. Shower/Wash Order (for designated surgeries) 6. MICHELLE Screen and Sleep Clinic Referral (if appropriate) History Of Present Illness: 59 y.o. female who we are asked to see/evaluate by [facility] 02 for pre-operative evaluation prior to ? LAPAROSCOPIC DIANA-EN- (more content not included)... [facility] 06-22-2025 Note Comprehensive Pre Louise rgical History and Physical ? Name: Jaime Oneill : 1965 (Age-59 y.o.) Date of Service: Pt seen/examined on 06/22/2025 Procedure Information Date/Time: 06/30/25 7330 Procedures: LAPAROSCOPIC DIANA-EN-Y GASTRIC BYPASS (Abdomen) - Length of procedure: 180min LIVER BIOPSY (Abdomen) HIATAL HERNIA REPAIR, POSSIBLE OPEN (Abdomen) Location: [facility] OR Operating Room Surgeons: Jordon Santiago DO Chief Complaint: Morbid obesity with BMI of 40.0-44.9, adult (HCC) [E66.01, Z68.41] ASSESSMENT/PLAN: Plan based on PAT protocol for this intermediate level 2 risk procedure/surgery. Based on the below evaluation, the benefits of the planned procedure likely exceed the risks. The patient is medically optimized to proceed with the planned procedure without any further cardiopulmonary testing. 1) Morbid obesity with BMI of 40.0-44.9, adult (HCC) [E66.01, Z68.41] - Managed per surgery - Orders per PAT Protocol: none - labs and ekg 2) GERD - MEDS: PPI - stable - avoidance of triggers encouraged - Managed by PCP 3) Hypothyroidism - Treated with medication: Yes, With: synthroid, and Managed by: pcp 4) Depression and Anxiety - MEDS: celexa - feels controlled on medication - yes - Managed by pcp - Patient may benefit from antianxiety medication DOS 5) Former Smoker - Total pack years: 48 - Ordered EKG and CBC if more than 20 year total pack hx EKG: Encounter Date: 04/08/25 ECG 12 lead - CLINIC PERFORMED Narrative Sinus Rhythm Low voltage in precordial leads. ECHO and EF:None on file Pacer/Defib: No METS: >4 METS (Able to climb a flight of stairs with no chest pain or shortness of breath): Yes CLEARANCES: Yes PATIENT SUMMARY Jaime GOODE 59 y.o. female with Body mass index is 41.54 kg/m?. Lap Diana En Y and Liver Bx w/HH Procedure DM[] HTN[] MICHELLE[] GERD[x] HL[] OA[] TOB[] Date of Surgery:06/30/25 NOTES MP PCP: INITIAL TESTING RESULTS Labwork [x] CMP, TSH, Fasting Lipid Profile, Mg, Zinc, Vit B1 (whole blood), Vit B12, 25-OH Vit D, Fe, Ferritin, Folate 03/10/25 TSH ok Tobacco [x] Serum Nicotine / Cotinine 04/30/25 [x] Negative [] Positive EGD [x] Dx: [x] GERD [] Dyspepsia [] Other 03/25/25 Pathology [x] H. pylori [x] Negative [] Positive UGI [x] [] not ordered if patient is planning on Diana En Y 04/20/25-unremarkable US Abdomen [] [x] not ordered if S/P Radha MICHELLE eval [] [] On CPAP / Obtain settings Not tested Hematology [] [] Hypercoagulation panel Toxicology [] [] Urine drug screen [] EtOH screen Addtional [] [] Hgb A1c 03/10/25 5.4 INITIAL CONSULTATIONS CLEARANCE / MANAGEMENT Psychology [x] Cleared 03/17/25 Eval 03/02/25. Dietitian [x] Dashawn Workman Valve Grinder Cleared: 02/25/25 Cardiology [x] Jf Irwin APRN Cleared 04/08/25 Pulmonary [x] Mele 02/19/25 Referred to pulmonary for bariatric clearance. ESS 3 and STOP BANG demonstrates an intermediate risk for MICHELLE. -ARISCAT score indicates that this patient is low risk for post-operative complications including, but not limited to, atelectasis, respiratory infection, exacerbation of underlying chronic lung disease, hypoxia and respiratory failure. - Recommend early ambulation, pulmonary toilet to prevent post-operative complications. 02/19/25 Others [] []Heme/Onc []Psychiatry []Pain mgmt PSD [x] Physician supervised diet: []None [x]3 mos []6 mos There is only 1 note from July that is still good but now too large of a gap to even use that. She should do the 3 here. Preop diet [] Preop low calory diet: []None []1 wk [x]2 wks []Ext. FINAL PRE-OP TESTING RESULTS Labwork [x] [x]Pre-op CBC [x]BMP []Serum Nicotine / Cotinine EKG [x] CXR [x] POST-OP MEDICATIONS Ulcer Ppx [x] Omeprazole 20 mg PO [x]QD []BID Gallstone Ppx [] Ursodiol 300 mg []BID s/p radha DVT Ppx [] DVT prophylaxis per final preop visit estimated risk Estimated calculated risk: 0.31% Visit Type: Pre-Admission Testing Visit Labs Ordered: As ordered by surgeon Sleep Referral Ordered: NO - NEGATIVE SCREEN PER SLEEP REFERRAL PROTOCOL Total time spent (which include face to face and non face to face encounters) : 35 minutes Toxic drug monitoring/narrow therapeutic index drug monitoring : # Drug name : multiple # Route administered : PO # Method of monitoring : labs, ekg PAT Protocol referenced includes: 1. Anesthesia Lab Protocol Orders 2. Perioperative Cardiovascular Risk Assessment 3. Anesthesia Assessment 4. Pain Assessment and Acute Pain Service Consult (if appropriate) 5. Shower/Wash Order (for designated surgeries) 6. MICHELLE Screen and Sleep Clinic Referral (if appropriate) History Of Present Illness: 59 y.o. female who we are asked to see/evaluate by [facility] 02 for pre-operative evaluation prior to ? LAPAROSCOPIC IDANA-EN- (more content not included)... [facility] 06-07-2025 History of Present illness Narrative DOS: 06/30/25 Procedure: RYGB PAT Date: 06/22/25 Patient understands the surgical procedure they are having and are aware that liver biopsy will be done at time of procedure? yes Did you attend the pre-operative class? no If no, link provided to patient. Yes Patient has received education manual or will receive at the end of today's visit. Has there been any health changes, hospitalizations, or ED visits recently? no If yes, explain: Discussed stopping NSAIDS and vitamins 10 days before surgery. yes Patient aware that further medication instructions will be given at their PAT appointment? yes Patient aware of their pre-op diet start date and understand that they are to be on clear liquids only the day before surgery? yes Patient aware that they need to purchase Hibiclens and use prior to surgery? yes Patient aware that they need to bring CPAP machine with them to hospital? N/A Reviewed with patient that they can plan on a one night stay in the hospital. Patient identified who will be staying with them post-op. Discussed the importance of adequate fluid intake and following the diet protocol. Activity restrictions and incision care also reviewed. Patient identified a support person to stay with them 03/06 after discharge from the hospital? yes granddaughter Does patient have active contract with pain management? no Risk factors for VTE discussed with patient? yes Does the patient have a history of a blood clot, clotting disorder, or any trouble with blood flow to lower extremities? no Will patient be on Lovenox therapy at home after surgery? no If yes, patient is aware that Lovenox prescription will be delivered to bedside day after surgery. Discussed the importance of avoiding 12-18 months post-op? N/A N/A If applicable, patient has a post-op control plan in place? Patient is menopausal Patient aware that post-op diet instructions will be reviewed the day after surgery by an RNCM prior to discharge. Patient aware that post-op diet progression is explained in detail in education manual. Patient aware that post-op diet is restrictive and that adherence is vital to success. Patient aware the compliance with post-op vitamins & supplements are for life and essential for nutritional health. Vitamin protocol discussed with patient, patient aware that post-op vitamins are listed in education manual. Images from the original note were not included. Patient History/Assessment Summary: The patient is a 59 y.o. year old female with morbid obesity, who stands Height: 5' 5 (165.1 cm) tall with a weight of Weight: 253 lb 3.2 oz (115 kg) , resulting in a BMI of Body mass index is 42.13 kg/m .. The patient is scheduled to undergo weight loss surgery to treat the following comorbid conditions that are directly associated with or indirectly associated with obesity: GERD - moderate, taking meds but still having symptoms Hypothyroid Medical History[1] She attended the weight loss surgery seminar prior to their initial surgical evaluation, and attended pre-op class on . The patient is scheduled for Laparoscopic Diana-en-Y Gastric Bypass. She is here today to review the details of surgery prior to their date of surgery: 06/30/25 The patient acknowledges and understands the risks, benefits, and options we have discussed, as outlined in the Additional Informed Consent for this procedure. Patient also understands the importance of pre and post-operative recommendations, including the Pre-Operative diet and regular post-operative follow up care. The importance of ambulation and incentive spirometry was also discussed. All questions of this patient and any family members present have been answered to their satisfaction. Review of Systems Constitutional: Negative. HENT: Negative. Respiratory: Negative. Cardiovascular: Negative. Gastrointestinal: Negative. Genitourinary: Negative. Musculoskeletal: Negative. Neurological: Negative. Psychiatric/Behavioral: Negative. All other systems reviewed and are negative. Physical Examination: BP 120/79 Pulse 73 Temp 36.4 C (97.5 F) Ht 5' 5 (1.651 m) Wt 253 lb 3.2 oz (115 kg) BMI 42.13 kg/m Physical Exam Constitutional: Appearance: Normal appearance. She is obese. HENT: Head: Normocephalic. Mouth/Throat: Mouth: Mucous membranes are moist. Eyes: Extraocular Movements: Extraocular movements intact. Conjunctiva/sclera: Conjunctivae normal. Pulmonary: Effort: Pulmonary effort is normal. Skin: General: Skin is warm and dry. Neurological: Mental Status: She is alert and oriented to person, place, and time. Mental status is at baseline. Psychiatric: Mood and Affect: Mood normal. Behavior: Behavior normal. Surgical History: Surgical History[2] Current Medications Patient's Medications New Prescriptions No medications on file Previous Medications B COMPLEX-C (SUPER B COMPLEX PO) Take 1 tablet by mouth daily. BIOTIN 5000 MCG CAPSULE Take 1 capsule by mouth daily. BLACK COHOSH PO Take by mouth. CALCIUM CARBONATE (CALCIUM 600 PO) Take 1 tablet by mouth daily. CITALOPRAM (CELEXA) 20 MG TABLET Take 20 mg by mouth daily. LEVOTHYROXINE (SYNTHROID, LEVOXYL) 125 MCG TABLET Take 125 mcg by mouth daily. MULTIPLE VITAMINS-MINERALS (CENTRUM SILVER ULTRA WOMENS PO) Take 1 tablet by mouth daily. PANTOPRAZOLE (PROTONIX) 40 MG EC TABLET Take 40 mg by mouth daily. UNABLE TO FIND Take 4 tablets by mouth daily. Med Name: Focus Factor Modified Medications No medications on file Discontinued Medications No medications on file Recommendations: We spent a great deal of time discussing the risks and benefits of Laparoscopic Diana-en-Y Gastric Bypass, including but not limited to injury to intra-abdominal organs, breakdown of the gastric staple line, the need for re-operative therapy, prolonged hospitalization, mechanical ventilation, and . We discussed the possibility of bleeding, the need for blood transfusions, blood clots, hospital-acquired and intra-abdominal infection, anastomotic stricture, and worsening GERD. And we discussed the need for post-operative visit compliance, behavior modifications and diet changes, protein and vitamin supplementation, as well as routine scheduled and dedicated exercise. We discussed the potential weight loss benefit to approximately 60-70% of her excess body weight at 12-18 months post-op, as well as the possibility of insufficient weight loss or weight gain after 2 years post-operative time. Upon completion of all required pre-operative testing we will submit for insurance pre-authorization. PATIENT SUMMARY Jaime GOODE 59 y.o. female with Body mass index is 41.54 kg/m . Lap Diana En Y and Liver Bx w/HH Procedure DM[] HTN[] MICHELLE[] GERD[x] HL[] OA[] TOB[] Date of Surgery:06/30/25 NOTES MP PCP: INITIAL TESTING RESULTS Labwork [x] CMP, TSH, Fasting Lipid Profile, Mg, Zinc, Vit B1 (whole blood), Vit B12, 25-OH Vit D, Fe, Ferritin, Folate 03/10/25 TSH ok Tobacco [x] Serum Nicotine / Cotinine 04/30/25 [x] Negative [] Positive EGD [x] Dx: [x] GERD [] Dyspepsia [] Other 03/25/25 Pathology [x] H. pylori [x] Negative [] Positive UGI [x] [] not ordered if patient is planning on Diana En Y 04/20/25-unremarkable US Abdomen [] [x] not ordered if S/P Radha MICHELLE eval [] [] On CPAP / Obtain settings Not tested Hematology [] [] Hypercoagulation panel Toxicology [] [] Urine drug screen [] EtOH screen Addtional [] [] Hgb A1c 03/10/25 5.4 INITIAL CONSULTATIONS CLEARANCE / MANAGEMENT Psychology [x] Cleared 03/17/25 Eval 03/02/25. Dietitian [x] Dashawn Workman Valve Grinder Cleared: 02/25/25 Cardiology [x] Jf Irwin APRN Cleared 04/08/25 Pulmonary [x] Gerstenmeier 02/19/25 Referred to pulmonary for bariatric clearance. ESS 3 and STOP BANG demonstrates an intermediate risk for MICHELLE. -ARISCAT score indicates that this patient is low risk for post-operative complications including, but not limited to, atelectasis, respiratory infection, exacerbation of underlying chronic lung disease, hypoxia and respiratory failure. - Recommend early ambulation, pulmonary toilet to prevent post-operative complications. 02/19/25 Others [] []Heme/Onc []Psychiatry []Pain mgmt PSD [x] Physician supervised diet: []None [x]3 mos []6 mos There is only 1 note from July that is still good but now too large of a gap to even use that. She should do the 3 here. Preop diet [] Preop low calory diet: []None []1 wk [x]2 wks []Ext. FINAL PRE-OP TESTING RESULTS Labwork [x] [x]Pre-op CBC [x]BMP []Serum Nicotine / Cotinine EKG [x] CXR [x] POST-OP MEDICATIONS Ulcer Ppx [x] Omeprazole 20 mg PO [x]QD []BID Gallstone Ppx [] Ursodiol 300 mg []BID s/p radha DVT Ppx [] DVT prophylaxis per final preop visit estimated risk Estimated calculated risk: 0.31% DVT PPX Risk Factors [] Male [x] Age >= 60 years [] BMI >= 50 kg/m^2 [] CHF [] Dyspnea at Rest [] Paraplegia [x] Non-Gastric Band Surgery [] Anticipate Operative Time > 3 hours [] Anticipate Length of Stay >3 days Automatic 4 Weeks of Therapy [] Congenital or Acquired Hypercoagulable Conditions (Factor V Leiden, Prothrombin) [] Past History of DVT or PE [] Significant Chronic Venous Insufficiency Calculated Risk Score: 0.31% Risk % Weeks </> BMI 50 SQ Dose [x] Moderate <0.4% 0 None [] High Risk 0.4% - 1% 2 [] 40 mg Lovenox BID [] 60 mg Lovenox BID [] Very High Risk >1% 4 [] 40 mg Lovenox BID [] 60 mg Lovenox BID The following was discussed with the patient: Lovenox not indicated Prescriptions WERE / WERE NOT/ WILL BE: were not provided for Actigall post-operatively Prescriptions WERE / WERE NOT / WILL BE: were not provided for Gastric Ulcer Prophylaxis post-operatively. LRYGB Lap liver biopsy Pre-op diet- to begin 1-2 Weeks prior to surgery I spent the total visit counseling (or coordinating care) and provided discussion regarding risks, benefits, and options referenced above, as well as pre- and post-operative program recommendations and requirements. [1] Past Medical History: Diagnosis Date Anxiety Back pain Bipolar disorder (HCC) Depression GERD (gastroesophageal reflux disease) Hiatal hernia Morbid obesity, unspecified obesity type (HCC) 01/21/2025 Thyroid disease [2] Past Surgical History: Procedure Laterality Date CHOLECYSTECTOMY 2004 HYSTERECTOMY 2006 partial documented in this encounter [facility] 06-07-2025 Note DOS: 06/30/25 Procedure: RYGB PAT Date: 06/22/25 Patient understands the surgical procedure they are having and are aware that liver biopsy will be done at time of procedure? yes Did you attend the pre-operative class? no If no, link provided to patient. Yes Patient has received education manual or will receive at the end of today's visit. Has there been any health changes, hospitalizations, or ED visits recently? no If yes, explain: Discussed stopping NSAIDS and vitamins 10 days before surgery. yes Patient aware that further medication instructions will be given at their PAT appointment? yes Patient aware of their pre-op diet start date and understand that they are to be on clear liquids only the day before surgery? yes Patient aware that they need to purchase Hibiclens and use prior to surgery? yes Patient aware that they need to bring CPAP machine with them to hospital? N/A Reviewed with patient that they can plan on a one night stay in the hospital. Patient identified who will be staying with them post-op. Discussed the importance of adequate fluid intake and following the diet protocol. Activity restrictions and incision care also reviewed. Patient identified a support person to stay with them 24/7 after discharge from the hospital? yes granddaughter Does patient have active contract with pain management? no Risk factors for VTE discussed with patient? yes Does the patient have a history of a blood clot, clotting disorder, or any trouble with blood flow to lower extremities? no Will patient be on Lovenox therapy at home after surgery? no If yes, patient is aware that Lovenox prescription will be delivered to bedside day after surgery. Discussed the importance of avoiding 12-18 months post-op? N/A N/A If applicable, patient has a post-op control plan in place? Patient is menopausal Patient aware that post-op diet instructions will be reviewed the day after surgery by an RNCM prior to discharge. Patient aware that post-op diet progression is explained in detail in education manual. Patient aware that post-op diet is restrictive and that adherence is vital to success. Patient aware the compliance with post-op vitamins & supplements are for life and essential for nutritional health. Vitamin protocol discussed with patient, patient aware that post-op vitamins are listed in education manual. [facility] Telephone encounter Note Orders signed [facility] [employer] Work Phone: 05-25-2025 Miscellaneous Notes Orders signed Noted, thank you. Noted, thank you. SURGERY SCHEDULED AND PATIENT NOTIFIED Surgeon: PAMELA Procedure: LRYGB W/ HH Surgery Date: 06/30/25 Surgery Time: 730AM Time Needed: 180MINS FPOV Date: 06/07/25 Time: 910AM 1WK POP Date: 07/05/25 Time: 840AM 1M POP Date: 08/02/25 Time: 1000AM Patient aware of required pre-operative class and instructed to sign up via website: YES Please schedule surgery for 06/30/25, order placed. Patient takes Anticoagulant: NO Name: Prescriber: Patient takes SGLT-2 Inhibitor: NO INVOKANA- canagliflozin JARDIANCE-empagliflozin STEGLATRO - ertugliflozin BRENZAVVY - bexagliflozin FARXIGA- dapagliflozin - If taking, is it used for Heart Failure: Patient assigned female at taking control that contains Estrogen: NO Difficult IV: NO Pain Management Provider: NO Support Person: ADULT GRANDDAUGHTER Date Restrictions for Surgery: NONE Auth APPROVED: Yes Approved for: inpatient Insurance: [employer] MEDICARE ID number: [id number] Authorization number: [id number] Valid dates: 06/22/2025 - 08/18/2025 Notes: INPATIENT AUTH APPROVAL FOR CPT 12499, 19053, 85024 / SCANNED TO MEDIA Noted, thank you. Auth submitted: Yes Insurance: [employer] MEDICARE ID number: [id number] Notes: INPATIENT AUTH REQUESTED FOR CPT 04169, 24399, 17517 PENDING AUTH # [id number] Lap Diana En Y and Liver Bx w/HH In CCN Ready for submission. Thank you. Nicotine is scanned with chart review- I faxed to [phone] today. documented in this encounter [facility] 05-25-2025 Telephone encounter Note Noted, thank you. [facility] 05-25-2025 Telephone encounter Note Noted, thank you. [facility] 05-24-2025 Note SURGERY SCHEDULED AN D PATIENT NOTIFIED Surgeon: PAMELA Procedure: LRYGB W/ HH Surgery Date: 06/30/25 Surgery Time: 730AM Time Needed: 180MINS FPOV Date: 06/07/25 Time: 910AM 1WK POP Date: 07/05/25 Time: 840AM 1M POP Date: 08/02/25 Time: 1000AM Patient aware of required pre-operative class and instructed to sign up via website: YES [facility] 05-24-2025 Telephone encounter Note SURGERY SCHEDULED AND PATIENT NOTIFIED Surgeon: PAMELA Procedure: LRYGB W/ HH Surgery Date: 06/30/25 Surgery Time: 730AM Time Needed: 180MINS FPOV Date: 06/07/25 Time: 910AM 1WK POP Date: 07/05/25 Time: 840AM 1M POP Date: 08/02/25 Time: 1000AM Patient aware of required pre-operative class and instructed to sign up via website: YES [facility] 05-24-2025 Telephone encounter Note Please schedule surgery for 06/30/25, order placed. [facility] 05-24-2025 Telephone encounter Note Patient takes Anticoagulant: NO Name: Prescriber: Patient takes SGLT-2 Inhibitor: NO INVOKANA- canagliflozin JARDIANCE-empagliflozin STEGLATRO - ertugliflozin BRENZAVVY - bexagliflozin FARXIGA- dapagliflozin - If taking, is it used for Heart Failure: Patient assigned female at taking control that contains Estrogen: NO Difficult IV: NO Pain Management Provider: NO Support Person: ADULT GRANDDAUGHTER Date Restrictions for Surgery: NONE T [facility] [employer] 05-24-2025 Telephone encounter Note Auth APPROVED: Yes Approved for: inpatient Insurance: [employer] MEDICARE ID number: [id number] Authorization number: [id number] Valid dates: 06/22/2025 - 08/18/2025 Notes: INPATIENT AUTH APPROVAL FOR CPT 94562, 45333, 30046 / SCANNED TO MEDIA T [facility] 05-20-2025 Telephone encounter Note Noted, thank you. T [facility] [employer] 05-20-2025 Telephone encounter Note Auth submitted: Yes Insurance: [employer] MEDICARE ID number: [id number] Notes: INPATIENT AUTH REQUESTED FOR CPT 84214, 61745, 75136 PENDING AUTH # [id number] [facility] 05-11-2025 Telephone encounter Note Lap Diana En Y and Liver Bx w/HH In CCN [facility] [employer] 05-11-2025 Telephone encounter Note She is good to go now! ?? Trish was able to move her money, so she can be scheduled. Abdulaziz Valderrama Executive Marketing Assistant - Weight Management Ins BNA money was applied to incorrect account- Billing fixed it on 05/11/25 [facility] 05-11-2025 Miscellaneous Notes She is good to go now! ?? Trish was able to move her money, so she can be scheduled. Abdulaziz Valderrama Executive Marketing Assistant - Weight Management Ins BNA money was applied to incorrect account- Billing fixed it on 05/11/25 Addended by: BIBIANA RAMIREZ on: 04/27/2025 09:39 AM Modules accepted: Orders Addended by: STEPHANIE VIDAL on: 04/27/2025 08:22 AM Modules accepted: Orders Mendoza please Patient had informed that she was established at [facility]- clearance form faxed. They responded not a patient. Spoke with patient again. She cannot remember exactly where she went before it's been years. She will schedule with [facility]. Phone number provided. Addended by: MARCELINA FLORES on: 03/10/2025 09:28 AM Modules accepted: Orders Addended by: MARCELINA FLORES on: 03/10/2025 09:27 AM Modules accepted: Orders Corrected. This is a 3 visit patient. Next visit marked 2 of 6- I do not know how to correct with new system. Thanks! Addended by: MATTIE BRADY on: 02/03/2025 11:56 AM Modules accepted: Orders Orders / pre op check list placed in folder for D/E 02/03/2025 W/ MGS. Addended by: TRISH BHATIA on: 01/28/2025 11:34 AM Modules accepted: Orders Orders signed. Called and left voicemail for patient to discuss decision of procedure she would like to have. Addended by: MATTIE BRADY on: 01/28/2025 09:37 AM Modules accepted: Orders EGD order sent to 260 sheet rock taper, labs pended, Pre op check list scanned to [facility]. PLAN Encounter Diagnoses Name Primary? Morbid obesity, unspecified obesity type (HCC) Gastroesophageal reflux disease without esophagitis Morbid obesity with BMI of 40.0-44.9, adult (HCC) Hypothyroidism, unspecified type I have recommended proceeding with the evaluation and work-up for the primary procedure as outlined below: PATIENT SUMMARY Jaime GOODE 59 y.o. female with Body mass index is 41.54 kg/m . not to make a decision regarding a weight loss procedure Procedure DM[] HTN[] MICHELLE[] GERD[x] HL[] OA[] TOB[] Date of Surgery: TBD NOTES MP PCP: INITIAL TESTING RESULTS Labwork [x] CMP, TSH, Fasting Lipid Profile, Mg, Zinc, Vit B1 (whole blood), Vit B12, 25-OH Vit D, Fe, Ferritin, Folate Tobacco [] Serum Nicotine / Cotinine [] Negative [] Positive EGD [x] Dx: [x] GERD [] Dyspepsia [] Other Pathology [x] H. pylori [] Negative [] Positive UGI [x] [] not ordered if patient is planning on Diana En Y US Abdomen [x] [] not ordered if S/P Radha MICHELLE eval [] [] On CPAP / Obtain settings Hematology [] [] Hypercoagulation panel Toxicology [] [] Urine drug screen [] EtOH screen Addtional [] [] Hgb A1c INITIAL CONSULTATIONS CLEARANCE / MANAGEMENT Psychology [x] Dietitian [x] Cardiology [x] Pulmonary [x] Others [] []Heme/Onc []Psychiatry []Pain mgmt PSD [] Physician supervised diet: []None [x]3 mos []6 mos Preop diet [] Preop low calory diet: []None []1 wk [x]2 wks []Ext. FINAL PRE-OP TESTING RESULTS Labwork [x] [x]Pre-op CBC [x]BMP []Serum Nicotine / Cotinine EKG [x] CXR [x] POST-OP MEDICATIONS Ulcer Ppx [] Omeprazole 20 mg PO []QD []BID Gallstone Ppx [] Ursodiol 300 mg []BID DVT Ppx [] DVT prophylaxis per final preop visit estimated risk Estimated calculated risk: % Schedule final pre-operative office visit with surgeon, pre-operative education class, and pre-operative exercise class prior to date of surgery ATTESTATION I reviewed with the patient the details of the proposed operation. The risks benefits and options were discussed. Risks included but were not limited to bleeding, infection, damage to other surrounding organs, cardio-pulmonary complications related to anesthesia, conversion from laparoscopic to and open procedure, the need for reoperative or endoscopic therapy, the potential for prolonged mechanical ventilation, and . All questions were fully answered to the patient's satisfaction and they wish to proceed with surgical intervention. Patient with some reflux - will plan for EGD to evaluate stomach and decide on procedure. The face to face encounter was spent counseling the patient and discussing the risks,benefits and options of surgery as well as the perioperative care plan. The patient was seen and examined independently and relevant data including a full chart rreview was performed by myself. Initial New [facility] surgical patient Navigation & Financial Counseling Discussion Patient Communication: In office SURGEON: [] JANELLE [] SENG [x] ROBERT [] TB [] LM PROCEDURE: [] LRYGB [] LSG [] MARYLIN-S [] MARYLIN [] UNDECIDED [] REV: SPECIFY: Confirmed pt wants to continue with surgical program/plan [] YES [] NO (complete program withdrawal note/process) CO-MORBIDS: [] NONE [] DM []HTN [] MICHELLE []GERD [] OTH: PRIVATE PAY: [] NO []YES DATE OF INITIAL BENEFITS VERIFICATION: TRANSFER FU: [] YES [] NO PRIMARY INSURANCE: Payor: [employer] MEDICARE ADVANTAGE / Plan: [employer] MEDICARE / Product Type: Medicare HMO / BENEFIT ON PLAN: [] NO [] YES BENEFIT MAX: [] NO [] YES -- BENEFIT MAX: $ EMPLOYER: DIET AND EXERCISE (DE) REQUIREMENT PRIMARY [] NONE []3M [] 6M []9M [] Medicare 4 Months [] SPR (3M) []OTHER: SECONDARY INSURANCE: BENEFIT ON PLAN: [] NO [] YES BENEFIT MAX: [] NO [] YES -- BENEFIT MAX: $ AUTH REQUIRED FROM SECONDARY [] NO [] YES DIET AND EXERCISE REQUIREMENT SECONDARY [] NONE [x]3M [] 6M [] Medicare 4 months [] SPR (3M) []OTHER: ___ [x] Discussed with patient: Financial cost overview (document signed and pt given copy at new pt consult visit with surgeon), Initial appointments: Bariatric Nutrition Assessment (BNA) & Diet and Exercise (DE) Patient to look for yellow envelope in mail. This yellow envelope will contain orders for labs, testing and required clearances. Pt encouraged to complete early in program to prevent delays. Encourage blood work to be draw by 1st DE appointment. [x] Reviewed OOP cost, including: [x] Overview of inpatient admission benefits - estimated inpatient co-pays, deductibles and/or co-insurance - Estimated OOP costs form reviewed with patient, and copy given to patient at new pt visit. [x] Reviewed next steps with patient: 1) Scheduled at new pt surgeon visit: Director Of Event Sales (RD) for a Nutrition Assessment (BNA) and Pre-operative Diet and Exercise (DE) appointment #1. [x] Patient reminded to arrive 15 minutes early for check in. Late arrivals may need to be rescheduled. 2) Schedule: Diet and Exercise Apt #2 only scheduled after initial BNA and DE completed, 3) Behavioral Health apt scheduled after DE started. Reviewed rational and goal of Behavioral Health appointments. 4) [x] Reinforced need to cancel any WMI appointments 48 hours in advance. Cautioned NS/Same day cancellations may result in delay in program or program completion hold. Noted: DE series needs to be a monthly series or insurance company may require repeat of the entire series. 5) [x] Smoker/tobacco products including vaping: reviewed need for cessation before surgery clearance and life long abstinence after surgery for best outcomes. Patient navigation to surgery: [x] Explained to patient that average time from initial consult to date of surgery can be 6-8 months. - Process can take longer if there are cancelled appointments, delays in testing and/or additional clearances that needs to be completed. - Reviewed importance of patient active engagement in making and keeping appointments to keep the process moving. - Reinforced need to cancel appointments at least 48 hours in advance. Reviewed that instances of No Shows and Same Day Appointment Cancellations may result in program/surgery delay or hold. [x] Patient advised of importance of having voicemail and MyChart for office communications and lab/testing results before and after surgery. documented in this encounter [facility] 05-11-2025 Telephone encounter Note Ready for submission. Thank you. Nicotine is scanned with chart review- I faxed to [phone] today. [facility] 04-27-2025 Note Addended by: BIBIANA MCCAULEY on: 04/27/2025 09:39 AM Modules accepted: Orders [facility] 04-27-2025 Note Addended by: BIBIANA MCCAULEY on: 04/27/2025 09:39 AM Modules accepted: Orders [facility] 04-27-2025 Note Addended by: BIBIANA MCCAULEY on: 04/27/2025 09:39 AM Modules accepted: Orders [facility] [employer] Work Phone: 04-27-2025 Miscellaneous Notes Addended by: BIBIANA RAMIREZ on: 04/27/2025 09:39 AM Modules accepted: Orders Addended by: STEPHANIE VIDAL on: 04/27/2025 08:22 AM Modules accepted: Orders Mendoza please Patient had informed that she was established at [facility]- clearance form faxed. They responded not a patient. Spoke with patient again. She cannot remember exactly where she went before it's been years. She will schedule with [facility]. Phone number provided. Addended by: MARCELINA FLORES on: 03/10/2025 09:28 AM Modules accepted: Orders Addended by: MARCELINA FLORES on: 03/10/2025 09:27 AM Modules accepted: Orders Corrected. This is a 3 visit patient. Next visit marked 2 of 6- I do not know how to correct with new system. Thanks! Addended by: MATTIE BRADY on: 02/03/2025 11:56 AM Modules accepted: Orders Orders / pre op check list placed in folder for D/E 02/03/2025 W/ MGS. Addended by: TRISH BHATIA on: 01/28/2025 11:34 AM Modules accepted: Orders Orders signed. Called and left voicemail for patient to discuss decision of procedure she would like to have. Addended by: MATTIE BRADY on: 01/28/2025 09:37 AM Modules accepted: Orders EGD order sent to [address] taper, labs pended, Pre op check list scanned to media. PLAN Encounter Diagnoses Name Primary? Morbid obesity, unspecified obesity type (HCC) Gastroesophageal reflux disease without esophagitis Morbid obesity with BMI of 40.0-44.9, adult (HCC) Hypothyroidism, unspecified type I have recommended proceeding with the evaluation and work-up for the primary procedure as outlined below: PATIENT SUMMARY Jaime GOODE 59 y.o. female with Body mass index is 41.54 kg/m . not to make a decision regarding a weight loss procedure Procedure DM[] HTN[] MICHELLE[] GERD[x] HL[] OA[] TOB[] Date of Surgery: TBD NOTES MP PCP: INITIAL TESTING RESULTS Labwork [x] CMP, TSH, Fasting Lipid Profile, Mg, Zinc, Vit B1 (whole blood), Vit B12, 25-OH Vit D, Fe, Ferritin, Folate Tobacco [] Serum Nicotine / Cotinine [] Negative [] Positive EGD [x] Dx: [x] GERD [] Dyspepsia [] Other Pathology [x] H. pylori [] Negative [] Positive UGI [x] [] not ordered if patient is planning on Diana En Y US Abdomen [x] [] not ordered if S/P Radha MICHELLE eval [] [] On CPAP / Obtain settings Hematology [] [] Hypercoagulation panel Toxicology [] [] Urine drug screen [] EtOH screen Addtional [] [] Hgb A1c INITIAL CONSULTATIONS CLEARANCE / MANAGEMENT Psychology [x] Dr. Fontanezitian [x] Cardiology [x] Pulmonary [x] Others [] []Heme/Onc []Psychiatry []Pain mgmt PSD [] Physician supervised diet: []None [x]3 mos []6 mos Preop diet [] Preop low calory diet: []None []1 wk [x]2 wks []Ext. FINAL PRE-OP TESTING RESULTS Labwork [x] [x]Pre-op CBC [x]BMP []Serum Nicotine / Cotinine EKG [x] CXR [x] POST-OP MEDICATIONS Ulcer Ppx [] Omeprazole 20 mg PO []QD []BID Gallstone Ppx [] Ursodiol 300 mg []BID DVT Ppx [] DVT prophylaxis per final preop visit estimated risk Estimated calculated risk: % Schedule final pre-operative office visit with surgeon, pre-operative education class, and pre-operative exercise class prior to date of surgery ATTESTATION I reviewed with the patient the details of the proposed operation. The risks benefits and options were discussed. Risks included but were not limited to bleeding, infection, damage to other surrounding organs, cardio-pulmonary complications related to anesthesia, conversion from laparoscopic to and open procedure, the need for reoperative or endoscopic therapy, the potential for prolonged mechanical ventilation, and . All questions were fully answered to the patient's satisfaction and they wish to proceed with surgical intervention. Patient with some reflux - will plan for EGD to evaluate stomach and decide on procedure. The face to face encounter was spent counseling the patient and discussing the risks,benefits and options of surgery as well as the perioperative care plan. The patient was seen and examined independently and relevant data including a full chart rreview was performed by myself. Initial New [facility] surgical patient Navigation & Financial Counseling Discussion Patient Communication: In office SURGEON: [] JANELLE [] SENG [x] MP [] TB [] LM PROCEDURE: [] LRYGB [] LSG [] MARYLIN-S [] MARYLIN [] UNDECIDED [] REV: SPECIFY: Confirmed pt wants to continue with surgical program/plan [] YES [] NO (complete program withdrawal note/process) CO-MORBIDS: [] NONE [] DM []HTN [] MICHELLE []GERD [] OTH: PRIVATE PAY: [] NO []YES DATE OF INITIAL BENEFITS VERIFICATION: TRANSFER FU: [] YES [] NO PRIMARY INSURANCE: Payor: [employer] MEDICARE ADVANTAGE / Plan: [employer] MEDICARE / Product Type: Medicare HMO / BENEFIT ON PLAN: [] NO [] YES BENEFIT MAX: [] NO [] YES -- BENEFIT MAX: $ EMPLOYER: DIET AND EXERCISE (DE) REQUIREMENT PRIMARY [] NONE []3M [] 6M []9M [] Medicare 4 Months [] SPR (3M) []OTHER: SECONDARY INSURANCE: BENEFIT ON PLAN: [] NO [] YES BENEFIT MAX: [] NO [] YES -- BENEFIT MAX: $ AUTH REQUIRED FROM SECONDARY [] NO [] YES DIET AND EXERCISE REQUIREMENT SECONDARY [] NONE [x]3M [] 6M [] Medicare 4 months [] SPR (3M) []OTHER: ___ [x] Discussed with patient: Financial cost overview (document signed and pt given copy at new pt consult visit with surgeon), Initial appointments: Bariatric Nutrition Assessment (BNA) & Diet and Exercise (DE) Patient to look for yellow envelope in mail. This yellow envelope will contain orders for labs, testing and required clearances. Pt encouraged to complete early in program to prevent delays. Encourage blood work to be draw by 1st DE appointment. [x] Reviewed OOP cost, including: [x] Overview of inpatient admission benefits - estimated inpatient co-pays, deductibles and/or co-insurance - Estimated OOP costs form reviewed with patient, and copy given to patient at new pt visit. [x] Reviewed next steps with patient: 1) Scheduled at new pt surgeon visit: Director Of Event Sales (RD) for a Nutrition Assessment (BNA) and Pre-operative Diet and Exercise (DE) appointment #1. [x] Patient reminded to arrive 15 minutes early for check in. Late arrivals may need to be rescheduled. 2) Schedule: Diet and Exercise Apt #2 only scheduled after initial BNA and DE completed, 3) Behavioral Health apt scheduled after DE started. Reviewed rational and goal of Behavioral Health appointments. 4) [x] Reinforced need to cancel any WMI appointments 48 hours in advance. Cautioned NS/Same day cancellations may result in delay in program or program completion hold. Noted: DE series needs to be a monthly series or insurance company may require repeat of the entire series. 5) [x] Smoker/tobacco products including vaping: reviewed need for cessation before surgery clearance and life long abstinence after surgery for best outcomes. Patient navigation to surgery: [x] Explained to patient that average time from initial consult to date of surgery can be 6-8 months. - Process can take longer if there are cancelled appointments, delays in testing and/or additional clearances that needs to be completed. - Reviewed importance of patient active engagement in making and keeping appointments to keep the process moving. - Reinforced need to cancel appointments at least 48 hours in advance. Reviewed that instances of No Shows and Same Day Appointment Cancellations may result in program/surgery delay or hold. [x] Patient advised of importance of having voicemail and MyChart for office communications and lab/testing results before and after surgery. documented in this encounter [facility] 04-27-2025 Note Addended by: STEPHANIE VIDAL on: 04/27/2025 08:22 AM Modules accepted: Orders [facility] 04-27-2025 Note Addended by: STEPHANIE VIDAL on: 04/27/2025 08:22 AM Modules accepted: Orders [facility] 04-27-2025 Note Addended by: STEPHANIE VIDAL on: 04/27/2025 08:22 AM Modules accepted: Orders [facility] 04-27-2025 Telephone encounter Note Mendoza please T [facility] 04-08-2025 History of Present illness Narrative [facility] PRE-OP MEDICAL MANAGEMENT PROGRESS NOTE FOLLOW UP VISIT HPI, PHYSICAL EXAMINATION & PLAN HPI: Patient here today for follow up for weight loss management following surgical weight loss Weight trend since last visit: yes 02/03/25--249 03/10/25--247 04/08/25 249 This patient's excess weight is causing the following co-morbid conditions at this time: GERD and Obesity Physical Examination: BP 124/77 Pulse 84 Temp 36.4 C (97.5 F) Resp 19 Ht 5' 5 (1.651 m) Wt 249 lb 6.4 oz (113 kg) Comment: BCC BMI 41.50 kg/m General: This patient is awake, alert, and oriented, and is in no apparent distress. Extremities: No restrictions of movement, is ambulatory without assistance. Social History: This patient is alone for the evaluation today. Current Diet This patient s current diet is:FOLLOWING RECOMMENDATION Her diet contains adequate amounts of protein, adequate amounts of healthy fats, adequate amounts of green, leafy vegetables, and adequate amounts of fruits. Her comfort foods include none currently Current Activity This patient currently does exercise Current Eating Behaviors This patients demonstrates the following behaviors as they relate to her eating: none currently She eats approximately 3-4 times per day. MDM- pt's medical conditions place them at moderate risk of complications, morbidity and mortality. Visit Diagnoses: 1. Morbid obesity with BMI of 40.0-44.9, adult ([facility]) 2. Gastroesophageal reflux disease without esophagitis Plan: Diagnosis Managing: GERD: stable. continue medical management, Diet & Exercise, and plan for metabolic weight loss surgery. and Obesity/WT: stable, - <9> Pt has a good understanding of diet but will try to increase physical activity. - . EGD 03/25/25---- this will tell what procedure she will have [] [] Protein goal of [] Patient advised to maintain a food/exercise/behavior diary until next physician visit. Pt to bring the completed diary to next visit [x] Final D/E Visit Discussed surgical checklist with patient. Answered patient's questions. Physician Diet Recommendations given to patient See Follow up Section of today's encounter for next visit and additional scheduling orders documented in this encounter [facility] 04-08-2025 Note [facility] PRE-OP MEDICAL MANAGEMENT PROGRESS NOTE FOLLOW UP VISIT HPI, PHYSICAL EXAMINATION & PLAN HPI: Patient here today for follow up for weight loss management following surgical weight loss Weight trend since last visit: yes 02/03/25--249 03/10/25--247 04/08/25 249 This patient's excess weight is causing the following co-morbid conditions at this time: GERD and Obesity Physical Examination: BP 124/77 Pulse 84 Temp 36.4 ?C (97.5 ?F) Resp 19 Ht 5' 5 (1.651 m) Wt 249 lb 6.4 oz (113 kg) Comment: BCC BMI 41.50 kg/m? General: This patient is awake, alert, and oriented, and is in no apparent distress. Extremities: No restrictions of movement, is ambulatory without assistance. Social History: This patient is alone for the evaluation today. Current Diet This patient?s current diet is:FOLLOWING RECOMMENDATION Her diet contains adequate amounts of protein, adequate amounts of healthy fats, adequate amounts of green, leafy vegetables, and adequate amounts of fruits. Her comfort foods include none currently Current Activity This patient currently does exercise Current Eating Behaviors This patients demonstrates the following behaviors as they relate to her eating: none currently She eats approximately 3-4 times per day. MDM- pt's medical conditions place them at moderate risk of complications, morbidity and mortality. Visit Diagnoses: 1. Morbid obesity with BMI of 40.0-44.9, adult ([facility]) 2. Gastroesophageal reflux disease without esophagitis Plan: Diagnosis Managing: GERD: stable. continue medical management, Diet & Exercise, and plan for metabolic weight loss surgery. and Obesity/WT: stable, - <9> Pt has a good understanding of diet but will try to increase physical activity. - . EGD 03/25/25---- this will tell what procedure she will have [] [] Protein goal of [] Patient advised to maintain a food/exercise/behavior diary until next physician visit. Pt to bring the completed diary to next visit [x] Final D/E Visit Discussed surgical checklist with patient. Answered patient's questions. Physician Diet Recommendations given to patient See Follow up Section of today's encounter for next visit and additional scheduling orders [facility] 04-08-2025 History of Present illness Narrative Images from the original note were not included. [facility] [address] [address] Dept: [phone] Dept Visit Type: New NAME: Jaime Oneill : 1965 Reason for Visit: No chief complaint on file. Assessment and Plan 1. Gastroesophageal reflux disease without esophagitis - Ambulatory referral to Cardiology - ECG 12 lead - CLINIC PERFORMED 2. Morbid obesity with BMI of 40.0-44.9, adult (HCC) - Ambulatory referral to Cardiology 3. Hypothyroidism, unspecified type - Ambulatory referral to Cardiology 4. Pre-op testing - Ambulatory referral to Cardiology She is planning to have bariatric surgery. She has no cardiovascular complaints. Her EKG today is normal. Her blood pressure is well-controlled. Her lipid panel shows mild hyperlipidemia at which point she should continue modifying risk factors and efforts for weight loss. She is at low risk of robb-operative cardiovascular morbidity or mortality. It is reasonable to proceed with the needed surgery without further investigation or delay. Having bariatric intervention and subsequent weight loss should improve his/her symptoms and decrease the likelihood of future cardiovascular events. [facility] -Cardiology At [facility] [place] remain available to assist in the patient's perioperative care as needed. Follow-up as needed Subjective HPI Jaime Oneill is an 59 y.o. female who presents for cardiac evaluation prior to planned bariatric surgery. She has a history of hypothyroidism and acid reflux. She denies a history of coronary artery disease, myocardial infarction, heart failure, arrhythmias, valvular disease, thromboembolism, kidney or liver diease, or stroke. She has no complaints of chest pain, palpitations, shortness of breath, orthopnea, edema, lightheadedness, dizziness, syncope or abnormal bleeding. Family history as documented below Social history She quit tobacco 3 years ago; No alcohol use; No illicit drugs Occupation-disabled d/t back injury Activities/exercise-Gym twice a week and walks 3 miles outside weather permitting Review of Systems as above Allergies[1] Current Medications[2] Medical History[3] Social History Tobacco Use Smoking status: Former Average packs/day: 1 pack/day for 44.8 years (44.8 ttl pk-yrs) Types: Cigarettes Start date: 05/11/1977 Smokeless tobacco: Never Tobacco comments: Quit smoking: Taking Chantix Substance Use Topics Alcohol use: Never Surgical History[4] Family History[5] Objective Vitals: 04/08/25 1034 BP: 108/82 Pulse: 69 Weight: 249 lb (113 kg) Height: 5' 5 (1.651 m) Physical Exam Vitals reviewed. Constitutional: Appearance: Normal appearance. She is obese. HENT: Head: Normocephalic and atraumatic. Nose: Nose normal. Eyes: Extraocular Movements: Extraocular movements intact. Pupils: Pupils are equal, round, and reactive to light. Cardiovascular: Rate and Rhythm: Normal rate and regular rhythm. Pulses: Radial pulses are 2+ on the right side and 2+ on the left side. Heart sounds: No murmur heard. No friction rub. No gallop. Pulmonary: Effort: Pulmonary effort is normal. Breath sounds: Normal breath sounds. No wheezing, rhonchi or rales. Chest: Chest wall: No tenderness. Musculoskeletal: General: No swelling. Normal range of motion. Cervical back: Normal range of motion. Right lower leg: No edema. Left lower leg: No edema. Skin: General: Skin is warm and dry. Capillary Refill: Capillary refill takes less than 2 seconds. Neurological: General: No focal deficit present. Mental Status: She is alert and oriented to person, place, and time. Psychiatric: Mood and Affect: Mood normal. Behavior: Behavior normal. Thought Content: Thought content normal. Judgment: Judgment normal. Data Reviewed and Summarized METS>4 Wilkes Estimated Risk Probability for Perioperative Myocardial Infarction or Cardiac Arrest: 0.2 %. Revised Cardiac Risk Index (RCRI) Estimated Rate of Myocardial Infarction, Pulmonary Edema, Ventricular Fibrillation, Cardiac Arrest, or Complete Heart Block: 3.9 Lab Results Component Value Date GLUCOSE 89 03/10/2025 CALCIUM 9.5 03/10/2025 NA 140 03/10/2025 K 4.5 03/10/2025 CO2 27 03/10/2025 CL 103 03/10/2025 BUN 21 03/10/2025 CREATININE 0.83 03/10/2025 Lab Results Component Value Date WBC 5.7 03/10/2025 HGB 13.3 03/10/2025 HCT 41.0 03/10/2025 MCV 91.5 03/10/2025 PLT 263 03/10/2025 Lab Results Component Value Date LDLCALC 137 (H) 03/10/2025 CARDIAC TESTING REVIEWED: EKG in Office: EKG: No results found for this or any previous visit (from the past 4464 hours). ECHOCARDIOGRAM: No results found for this or any previous visit. STRESS: No results found for this or any previous visit. HEART CATH: No results found for this or any previous visit. [1] No Known Allergies [2] Current Outpatient Medications: B Complex-C (SUPER B COMPLEX PO), Take 1 tablet by mouth daily. (Patient not taking: Reported on 03/10/2025), Disp: , Rfl: biotin 5000 MCG capsule, Take 1 capsule by mouth daily., Disp: , Rfl: Calcium Carbonate (CALCIUM 600 PO), Take 1 tablet by mouth daily., Disp: , Rfl: cholecalciferol (Vitamin D-3) 250 MCG (82159 UT) tablet, Take 10,000 Units by mouth daily. (Patient not taking: Reported on 03/25/2025), Disp: , Rfl: citalopram (CeleXA) 20 MG tablet, Take 20 mg by mouth daily., Disp: , Rfl: levothyroxine (Synthroid, Levoxyl) 125 MCG tablet, Take 125 mcg by mouth daily., Disp: , Rfl: Multiple Vitamins-Minerals (CENTRUM SILVER ULTRA WOMENS PO), Take 1 tablet by mouth daily., Disp: , Rfl: pantoprazole (ProtoNix) 40 MG EC tablet, Take 40 mg by mouth daily., Disp: , Rfl: UNABLE TO FIND, Take 4 tablets by mouth daily. Med Name: Focus Factor (Patient not taking: Reported on 03/10/2025), Disp: , Rfl: [3] Past Medical History: Diagnosis Date Anxiety Back pain Depression GERD (gastroesophageal reflux disease) Morbid obesity, unspecified obesity type (HCC) 01/21/2025 Thyroid disease [4] Past Surgical History: Procedure Laterality Date CHOLECYSTECTOMY 2005 HYSTERECTOMY 2007 partial [5] Family History Problem Relation Name Age of Onset Obesity Mother Diabetes Mother High Blood Pressure Mother Obesity Father Diabetes Father High Blood Pressure Father Heart disease Father Stroke Father Heart disease Sister Obesity Sister Heart disease Brother High Blood Pressure Brother documented in this encounter [facility] 03-25-2025 Note Patient: Jaime ortiz Procedure Summary Date: 03/25/25 Room / Location: [facility] Anesthesia Start: 1418 Anesthesia Stop: 1437 Procedure: ESOPHAGOGASTRODUODENOSCOPY, WITH BIOPSY Diagnosis: Gastro-esophageal reflux disease without esophagitis Providers: Jordon Santiago DO Responsible Provider: Santiago Diehl MD Anesthesia Type: TIVA ASA Status: 2 Anesthesia Type: TIVA Vitals Value Taken Time BP 104/55 03/25/25 14:35 Temp 37 03/25/25 14:37 Pulse 73 03/25/25 14:35 Resp 18 03/25/25 14:35 SpO2 100 % 03/25/25 14:35 Anesthesia Post Evaluation Patient location during evaluation: PACU Patient participation: complete - patient participated Level of consciousness: alert and awake Pain management: adequate Airway patency: patent Dental Injury: no Cardiovascular status: acceptable Respiratory status: acceptable Hydration status: acceptable Nausea/Vomiting: controlled No notable events documented. Patient can be discharged once all PACU criteria has been met. [facility] 03-25-2025 Note Patient: Jaime ortiz Procedure Summary Date: 03/25/25 Room / Location: [facility] Anesthesia Start: 141 Anesthesia Stop: Procedure: ESOPHAGOGASTRODUODENOSCOPY, WITH BIOPSY Diagnosis: Gastro-esophageal reflux disease without esophagitis Providers: Jordon Santiago DO Responsible Provider: Santiago Diehl MD Anesthesia Type: TIVA ASA Status: 2 Anesthesia Type: TIVA Vitals Value Taken Time BP 104/55 03/25/25 14:36 Temp 37 03/25/25 14:36 Pulse 74 03/25/25 14:36 Resp 16 03/25/25 14:36 SpO2 98 03/25/25 14:36 Anesthesia Post Evaluation Patient participation: complete - patient participated Level of consciousness: awake and returned to baseline Pain management: adequate Airway patency: patent Respiratory status: spontaneous ventilation Cardiovascular status: hemodynamically stable Hydration status: normovolemic PONV: none No notable events documented. MIPS #[id number] PONV Patient did not receive an inhalational anesthetic (XX430) MIPS # [phone] Perioperative Temperature Management Anesthesia time was less than 60 minutes (4256F) MIPS #[id number] Multimodal Pain Management Not emergent case Patient was not administered multimodal pain management (G2149) Patient reports no pain in PACU (G2149) MIPS #[phone] Anesthesiology Smoking Abstinence The patient is not a current smoker (e.g. cigarette, cigar, pipe, e-cigarette/vaping/marijuana) If no stop here (XX404) I completed my handoff to the receiving clinician during which we: 1. Identified the patient 2. Identified the responsible provider 3. Reviewed the pertinent medical history 4. Discussed the surgical course 5. Reviewed intra-op anesthesia management and issues during anesthesia 6. Set expectations for post-procedure period 7. Allowed opportunity for questions and acknowledgement of understanding. [facility] 03-25-2025 History and physical note General Surgery History and Physical HPI: Jaime Oneill is a 59 y.o. female who presents with gerd, pre op bariatric surgery. PMHx: Medical History[1] PSHx: Surgical History[2] PFMHx: Family History[3] ALL: Allergies[4] MEDS: @MEDCMED@ SOCIAL Hx: Social History Socioeconomic History Marital status: Spouse name: Not on file Number of children: Not on file Years of education: Not on file Highest education level: Not on file Occupational History Not on file Tobacco Use Smoking status: Former Average packs/day: 1 pack/day for 44.8 years (44.8 ttl pk-yrs) Types: Cigarettes Start date: 05/11/1977 Smokeless tobacco: Never Tobacco comments: Quit smoking: Taking Chantix Vaping Use Vaping status: Never Used Substance and Sexual Activity Alcohol use: Never Drug use: Never Sexual activity: Never Other Topics Concern Not on file Social History Narrative Not on file Social Drivers of Health Financial Resource Strain: Not on file Food Insecurity: Not on file Transportation Needs: Not on file Physical Activity: Not on file Stress: Not on file Social Connections: Not on file Intimate Partner Violence: Not on file Housing Stability: Not on file Review of Systems: I personally reviewed the patient intake form and discussed the 11 point ROS with the patient. The positive findings are noted in the HPI. Physical Examination: BP 137/72 Pulse 90 Temp 36.6 C (97.8 F) Resp 16 Ht 5' 5 (1.651 m) Wt 247 lb (112 kg) SpO2 97% BMI 41.10 kg/m She stands @FLOWAMB(11)@ tall with a weight of @FLOWAMB(14)@ , resulting in a BMI of Body mass index is 41.1 kg/m .. General: The patient is awake, alert, and oriented, and is in no apparent distress. Normal affect. EOMI, PERRL Head and Neck: Normocephalic and atraumatic. Normal range of motion Cardiac: Regular rate and rhythm without evidence of murmur. No obvious carotid bruits. Equal pulses, no edema Respiratory: Clear to auscultation bilaterally. Good inspiratory effort. Abdomen: none Extremities: Ambulatory without assistance. No deformity in 4 extremities Neurological: Intact sensation in 4 extremities, no focal deficits, normal sensation. Skin: No rashes or lesions noted. Warm and dry. Rectal: Not done. Hernia: no hernias found on exam Assessment and Plan Assessment: Gerd, pre op bariatric surgery Plan: Egd with biopsy [1] Past Medical History: Diagnosis Date Anxiety Back pain Depression GERD (gastroesophageal reflux disease) Morbid obesity, unspecified obesity type (HCC) 01/21/2025 Thyroid disease [2] Past Surgical History: Procedure Laterality Date CHOLECYSTECTOMY 2005 HYSTERECTOMY 2007 partial [3] Family History Problem Relation Name Age of Onset Obesity Mother Diabetes Mother High Blood Pressure Mother Obesity Father Diabetes Father High Blood Pressure Father Heart disease Father Stroke Father Heart disease Sister Obesity Sister Heart disease Brother High Blood Pressure Brother [4] No Known Allergies [employer] Work Phone: 03-25-2025 Note General Surgery Hist ory and Physical HPI: Jaime Oneill is a 59 y.o. female who presents with gerd, pre op bariatric surgery. PMHx: Medical History[1] PSHx: Surgical History[2] PFMHx: Family History[3] ALL: Allergies[4] MEDS: @MEDCMED@ SOCIAL Hx: Social History Socioeconomic History Marital status: Spouse name: Not on file Number of children: Not on file Years of education: Not on file Highest education level: Not on file Occupational History Not on file Tobacco Use Smoking status: Former Average packs/day: 1 pack/day for 44.8 years (44.8 ttl pk-yrs) Types: Cigarettes Start date: 05/11/1977 Smokeless tobacco: Never Tobacco comments: Quit smoking: Taking Chantix Vaping Use Vaping status: Never Used Substance and Sexual Activity Alcohol use: Never Drug use: Never Sexual activity: Never Other Topics Concern Not on file Social History Narrative Not on file Social Drivers of Health Financial Resource Strain: Not on file Food Insecurity: Not on file Transportation Needs: Not on file Physical Activity: Not on file Stress: Not on file Social Connections: Not on file Intimate Partner Violence: Not on file Housing Stability: Not on file Review of Systems: I personally reviewed the patient intake form and discussed the 11 point ROS with the patient. The positive findings are noted in the HPI. Physical Examination: BP 137/72 Pulse 90 Temp 36.6 ?C (97.8 ?F) Resp 16 Ht 5' 5 (1.651 m) Wt 247 lb (112 kg) SpO2 97% BMI 41.10 kg/m? She stands @FLOWAMB(11)@ tall with a weight of @FLOWAMB(14)@ , resulting in a BMI of Body mass index is 41.1 kg/m?.. General: The patient is awake, alert, and oriented, and is in no apparent distress. Normal affect. EOMI, PERRL Head and Neck: Normocephalic and atraumatic. Normal range of motion Cardiac: Regular rate and rhythm without evidence of murmur. No obvious carotid bruits. Equal pulses, no edema Respiratory: Clear to auscultation bilaterally. Good inspiratory effort. Abdomen: none Extremities: Ambulatory without assistance. No deformity in 4 extremities Neurological: Intact sensation in 4 extremities, no focal deficits, normal sensation. Skin: No rashes or lesions noted. Warm and dry. Rectal: Not done. Hernia: no hernias found on exam Assessment and Plan Assessment: Gerd, pre op bariatric surgery Plan: Egd with biopsy [1] Past Medical History: Diagnosis Date Anxiety Back pain Depression GERD (gastroesophageal reflux disease) Morbid obesity, unspecified obesity type (HCC) 01/21/2025 Thyroid disease [2] Past Surgical History: Procedure Laterality Date CHOLECYSTECTOMY 2004 HYSTERECTOMY 2006 partial [3] Family History Problem Relation Name Age of Onset Obesity Mother Diabetes Mother High Blood Pressure Mother Obesity Father Diabetes Father High Blood Pressure Father Heart disease Father Stroke Father Heart disease Sister Obesity Sister Heart disease Brother High Blood Pressure Brother [4] No Known Allergies [facility] 03-25-2025 History and physical note General Surgery History and Physical HPI: Jaime Oneill is a 59 y.o. female who presents with gerd, pre op bariatric surgery. PMHx: Medical History[1] PSHx: Surgical History[2] PFMHx: Family History[3] ALL: Allergies[4] MEDS: @MEDCMED@ SOCIAL Hx: Social History Socioeconomic History Marital status: Spouse name: Not on file Number of children: Not on file Years of education: Not on file Highest education level: Not on file Occupational History Not on file Tobacco Use Smoking status: Former Average packs/day: 1 pack/day for 44.8 years (44.8 ttl pk-yrs) Types: Cigarettes Start date: 05/11/1977 Smokeless tobacco: Never Tobacco comments: Quit smoking: Taking Chantix Vaping Use Vaping status: Never Used Substance and Sexual Activity Alcohol use: Never Drug use: Never Sexual activity: Never Other Topics Concern Not on file Social History Narrative Not on file Social Drivers of Health Financial Resource Strain: Not on file Food Insecurity: Not on file Transportation Needs: Not on file Physical Activity: Not on file Stress: Not on file Social Connections: Not on file Intimate Partner Violence: Not on file Housing Stability: Not on file Review of Systems: I personally reviewed the patient intake form and discussed the 11 point ROS with the patient. The positive findings are noted in the HPI. Physical Examination: BP 137/72 Pulse 90 Temp 36.6 C (97.8 F) Resp 16 Ht 5' 5 (1.651 m) Wt 247 lb (112 kg) SpO2 97% BMI 41.10 kg/m She stands @FLOWAMB(11)@ tall with a weight of @FLOWAMB(14)@ , resulting in a BMI of Body mass index is 41.1 kg/m .. General: The patient is awake, alert, and oriented, and is in no apparent distress. Normal affect. EOMI, PERRL Head and Neck: Normocephalic and atraumatic. Normal range of motion Cardiac: Regular rate and rhythm without evidence of murmur. No obvious carotid bruits. Equal pulses, no edema Respiratory: Clear to auscultation bilaterally. Good inspiratory effort. Abdomen: none Extremities: Ambulatory without assistance. No deformity in 4 extremities Neurological: Intact sensation in 4 extremities, no focal deficits, normal sensation. Skin: No rashes or lesions noted. Warm and dry. Rectal: Not done. Hernia: no hernias found on exam Assessment and Plan Assessment: Gerd, pre op bariatric surgery Plan: Egd with biopsy [1] Past Medical History: Diagnosis Date Anxiety Back pain Depression GERD (gastroesophageal reflux disease) Morbid obesity, unspecified obesity type (HCC) 01/21/2025 Thyroid disease [2] Past Surgical History: Procedure Laterality Date CHOLECYSTECTOMY 2005 HYSTERECTOMY 2007 partial [3] Family History Problem Relation Name Age of Onset Obesity Mother Diabetes Mother High Blood Pressure Mother Obesity Father Diabetes Father High Blood Pressure Father Heart disease Father Stroke Father Heart disease Sister Obesity Sister Heart disease Brother High Blood Pressure Brother [4] No Known Allergies documented in this encounter [facility] 03-25-2025 Note Patient: Jaime ortiz Procedure Information Date/Time: 03/25/25 1345 Procedure: ESOPHAGOGASTRODUODENOSCOPY, WITH BIOPSY - 20MINS Location: [facility] Providers: Jordon Santiago DO Relevant Problems Endo (+) Hypothyroidism GI (+) GERD (gastroesophageal reflux disease) Neuro/Psych (+) Major depressive disorder Past Medical History: Past Medical History: No date: Anxiety No date: Back pain No date: Depression No date: GERD (gastroesophageal reflux disease) 01/21/2025: Morbid obesity, unspecified obesity type (HCC) No date: Thyroid disease Past Surgical History: Past Surgical History: 2004: CHOLECYSTECTOMY 2006: HYSTERECTOMY Comment: partial Social History: TOBACCO: reports that she has quit smoking. Her smoking use included cigarettes. She started smoking about 47 years ago. She has a 44.8 pack-year smoking history. She has never used smokeless tobacco. ETOH: reports no history of alcohol use. Social History Substance and Sexual Activity Drug Use Never Family History: Family History[1] Screening: Postmenopausal Clinical information reviewed: Tobacco Allergies Meds Med Hx Surg Hx OB Status Fam Hx Soc Hx Physical Exam Airway Mallampati: II TM distance: >3 FB Neck ROM: full Mouth Open: normalendotracheal tube not in place Cardiovascular Dental Comments: Upper left crown dentition normal Pulmonary Abdominal Anesthesia Plan patient is NPO appropriate Any family history or previous problems with anesthesia no ASA 2 TIVA Any family history or previous problems with anesthesia no The patient is not a current smoker. Anesthetic plan and risks discussed with patient. MICHELLE Screening Labs: Lab Results Component Value Date WBC 5.7 03/10/2025 HGB 13.3 03/10/2025 HCT 41.0 03/10/2025 MCV 91.5 03/10/2025 PLT 263 03/10/2025 Lab Results Component Value Date NA 140 03/10/2025 K 4.5 03/10/2025 CL 103 03/10/2025 CO2 27 03/10/2025 BUN 21 03/10/2025 CREATININE 0.83 03/10/2025 GLUCOSE 89 03/10/2025 CALCIUM 9.5 03/10/2025 PROT 8.0 03/10/2025 ALKPHOS 86 03/10/2025 AST 40 (H) 03/10/2025 ALT 37 (H) 03/10/2025 EGFR 80.3 03/10/2025 Pain Score: 0 - No pain No echocardiogram results found for the past 14 days No results found for this or any previous visit. Equipment Requests: Additional Equipment Requests [1] Family History Problem Relation Name Age of Onset Obesity Mother Diabetes Mother High Blood Pressure Mother Obesity Father Diabetes Father High Blood Pressure Father Heart disease Father Stroke Father Heart disease Sister Obesity Sister Heart disease Brother High Blood Pressure Brother [facility] 03-25-2025 Note [facility] Patient Name: Jaime Oneill Procedure Date: 03/25/2025 2:02 PM Gender: Female Date of : 1965 Age: 59 Admit Type: Outpatient Note Status: Finalized Endoscopist: Jordon Santiago DO, [id number] Procedure: Upper GI endoscopy Indications: Gastro-esophageal reflux disease Findings: Minimal inflammation was found in the gastric antrum. This was biopsied with a cold forceps for Helicobacter pylori testing. A medium-sized hiatal hernia was present. The examined duodenum was normal. Biopsies were taken with a cold forceps for histology. Impression: - Gastritis. Biopsied. - Medium-sized hiatal hernia. Recommendation: - Patient has a contact number available for emergencies. The signs and symptoms of potential delayed complications were discussed with the patient. Return to normal activities tomorrow. Written discharge instructions were provided to the patient. - Resume previous diet. - Continue present medications. - Await pathology results. Medicines: Monitored Anesthesia Care Procedure: Pre-Anesthesia Assessment: - Prior to the procedure, a History and Physical was performed, and patient medications and allergies were reviewed. The patient's tolerance of previous anesthesia was also reviewed. The risks and benefits of the procedure and the sedation options and risks were discussed with the patient. All questions were answered, and informed consent was obtained. Prior Anticoagulants: The patient has taken no anticoagulant or antiplatelet agents. ASA Grade Assessment: III - A patient with severe systemic disease. After reviewing the risks and benefits, the patient was deemed in satisfactory condition to undergo the procedure. - The anesthesia plan was to use monitored anesthesia care (MAC). - Prior Aspirin/ NSAID therapy: The patient has taken no aspirin or NSAID medications. After obtaining informed consent, the endoscope was passed under direct vision. Throughout the procedure, the patient's blood pressure, pulse, and oxygen saturations were monitored continuously. The Endoscope was introduced through the mouth, and advanced to the second part of duodenum. The upper GI endoscopy was accomplished without difficulty. The patient tolerated the procedure well. Complications: No immediate complications. Procedure Code(s): --- Professional --- 55944, Esophagogastroduodenoscopy, flexible, transoral; with biopsy, single or multiple --- Technical --- 29872, Esophagogastroduodenoscopy, flexible, transoral; with biopsy, single or multiple Diagnosis Code(s): --- Professional --- K29.70, Gastritis, unspecified, without bleeding K44.9, Diaphragmatic hernia without obstruction or gangrene K21.9, Gastro-esophageal reflux disease without esophagitis --- Technical --- K29.70, Gastritis, unspecified, without bleeding K44.9, Diaphragmatic hernia without obstruction or gangrene K21.9, Gastro-esophageal reflux disease without esophagitis CPT copyright 2021 [employer]. All rights reserved. The codes documented in this report are preliminary and upon real estate broker associate review may be revised to meet current compliance requirements. Attending Participation: I personally performed the entire procedure. Jordon Santiago DO 03/25/2025 2:33:42 PM This report has been signed electronically. Number of Addenda: 0 Note Initiated On: 03/25/2025 2:02 PM [facility] 03-25-2025 [facility] Patient Name: Jaime Oneill Procedure Date: 03/25/2025 2:02 PM Gender: Female Date of : 1965 Age: 59 Admit Type: Outpatient Note Status: Finalized Endoscopist: Jordon Santiago DO, [id number] Procedure: Upper GI endoscopy Indications: Gastro-esophageal reflux disease Findings: Minimal inflammation was found in the gastric antrum. This was biopsied with a cold forceps for Helicobacter pylori testing. A medium-sized hiatal hernia was present. The examined duodenum was normal. Biopsies were taken with a cold forceps for histology. Impression: - Gastritis. Biopsied. - Medium-sized hiatal hernia. Recommendation: - Patient has a contact number available for emergencies. The signs and symptoms of potential delayed complications were discussed with the patient. Return to normal activities tomorrow. Written discharge instructions were provided to the patient. - Resume previous diet. - Continue present medications. - Await pathology results. Medicines: Monitored Anesthesia Care Procedure: Pre-Anesthesia Assessment: - Prior to the procedure, a History and Physical was performed, and patient medications and allergies were reviewed. The patient's tolerance of previous anesthesia was also reviewed. The risks and benefits of the procedure and the sedation options and risks were discussed with the patient. All questions were answered, and informed consent was obtained. Prior Anticoagulants: The patient has taken no anticoagulant or antiplatelet agents. ASA Grade Assessment: III - A patient with severe systemic disease. After reviewing the risks and benefits, the patient was deemed in satisfactory condition to undergo the procedure. - The anesthesia plan was to use monitored anesthesia care (MAC). - Prior Aspirin/ NSAID therapy: The patient has taken no aspirin or NSAID medications. After obtaining informed consent, the endoscope was passed under direct vision. Throughout the procedure, the patient's blood pressure, pulse, and oxygen saturations were monitored continuously. The Endoscope was introduced through the mouth, and advanced to the second part of duodenum. The upper GI endoscopy was accomplished without difficulty. The patient tolerated the procedure well. Complications: No immediate complications. Procedure Code(s): --- Professional --- 77316, Esophagogastroduodenoscopy, flexible, transoral; with biopsy, single or multiple --- Technical --- 18354, Esophagogastroduodenoscopy, flexible, transoral; with biopsy, single or multiple Diagnosis Code(s): --- Professional --- K29.70, Gastritis, unspecified, without bleeding K44.9, Diaphragmatic hernia without obstruction or gangrene K21.9, Gastro-esophageal reflux disease without esophagitis --- Technical --- K29.70, Gastritis, unspecified, without bleeding K44.9, Diaphragmatic hernia without obstruction or gangrene K21.9, Gastro-esophageal reflux disease without esophagitis CPT copyright 2021 [employer]. All rights reserved. The codes documented in this report are preliminary and upon real estate broker associate review may be revised to meet current compliance requirements. Attending Participation: I personally performed the entire procedure. Jordon Santiago DO 03/25/2025 2:33:42 PM This report has been signed electronically. Number of Addenda: 0 Note Initiated On: 03/25/2025 2:02 PM [facility] 03-25-2025 Miscellaneous Notes [facility] Patient Name: Jaime Oneill Procedure Date: 03/25/2025 2:02 PM Gender: Female Date of : 1965 Age: 59 Admit Type: Outpatient Note Status: Finalized Endoscopist: Jordon Santiago DO, [id number] Procedure: Upper GI endoscopy Indications: Gastro-esophageal reflux disease Findings: Minimal inflammation was found in the gastric antrum. This was biopsied with a cold forceps for Helicobacter pylori testing. A medium-sized hiatal hernia was present. The examined duodenum was normal. Biopsies were taken with a cold forceps for histology. Impression: - Gastritis. Biopsied. - Medium-sized hiatal hernia. Recommendation: - Patient has a contact number available for emergencies. The signs and symptoms of potential delayed complications were discussed with the patient. Return to normal activities tomorrow. Written discharge instructions were provided to the patient. - Resume previous diet. - Continue present medications. - Await pathology results. Medicines: Monitored Anesthesia Care Procedure: Pre-Anesthesia Assessment: - Prior to the procedure, a History and Physical was performed, and patient medications and allergies were reviewed. The patient's tolerance of previous anesthesia was also reviewed. The risks and benefits of the procedure and the sedation options and risks were discussed with the patient. All questions were answered, and informed consent was obtained. Prior Anticoagulants: The patient has taken no anticoagulant or antiplatelet agents. ASA Grade Assessment: III - A patient with severe systemic disease. After reviewing the risks and benefits, the patient was deemed in satisfactory condition to undergo the procedure. - The anesthesia plan was to use monitored anesthesia care (MAC). - Prior Aspirin/ NSAID therapy: The patient has taken no aspirin or NSAID medications. After obtaining informed consent, the endoscope was passed under direct vision. Throughout the procedure, the patient's blood pressure, pulse, and oxygen saturations were monitored continuously. The Endoscope was introduced through the mouth, and advanced to the second part of duodenum. The upper GI endoscopy was accomplished without difficulty. The patient tolerated the procedure well. Complications: No immediate complications. Procedure Code(s): --- Professional --- 64702, Esophagogastroduodenoscopy, flexible, transoral; with biopsy, single or multiple --- Technical --- 98224, Esophagogastroduodenoscopy, flexible, transoral; with biopsy, single or multiple Diagnosis Code(s): --- Professional --- K29.70, Gastritis, unspecified, without bleeding K44.9, Diaphragmatic hernia without obstruction or gangrene K21.9, Gastro-esophageal reflux disease without esophagitis --- Technical --- K29.70, Gastritis, unspecified, without bleeding K44.9, Diaphragmatic hernia without obstruction or gangrene K21.9, Gastro-esophageal reflux disease without esophagitis CPT copyright 202 [employer]. All rights reserved. The codes documented in this report are preliminary and upon real estate broker associate review may be revised to meet current compliance requirements. Attending Participation: I personally performed the entire procedure. Jordon Santiago DO 03/25/2025 2:33:42 PM This report has been signed electronically. Number of Addenda: 0 Note Initiated On: 03/25/2025 2:02 PM documented in this encounter [facility] 03-17-2025 Telephone encounter Note Patient had informed that she was established at [facility]- clearance form faxed. They responded not a patient. Spoke with patient again. She cannot remember exactly where she went before it's been years. She will schedule with [facility]. Phone number provided. [facility] 03-17-2025 Miscellaneous Notes Patient had informed that she was established at [facility]- clearance form faxed. They responded not a patient. Spoke with patient again. She cannot remember exactly where she went before it's been years. She will schedule with [facility]. Phone number provided. Addended by: MARCELINA FLORES on: 03/10/2025 09:28 AM Modules accepted: Orders Addended by: MARCELINA FLORES on: 03/10/2025 09:27 AM Modules accepted: Orders Corrected. This is a 3 visit patient. Next visit marked 2 of 6- I do not know how to correct with new system. Thanks! Addended by: MATTIE BRADY on: 02/03/2025 11:56 AM Modules accepted: Orders Orders / pre op check list placed in folder for D/E 02/03/2025 W/ MGS. Addended by: TRISH BHATIA on: 01/28/2025 11:34 AM Modules accepted: Orders Orders signed. Called and left voicemail for patient to discuss decision of procedure she would like to have. Addended by: MATTIE BRADY on: 01/28/2025 09:37 AM Modules accepted: Orders EGD order sent to [address], labs pended, Pre op check list scanned to media. PLAN Encounter Diagnoses Name Primary? Morbid obesity, unspecified obesity type (HCC) Gastroesophageal reflux disease without esophagitis Morbid obesity with BMI of 40.0-44.9, adult (HCC) Hypothyroidism, unspecified type I have recommended proceeding with the evaluation and work-up for the primary procedure as outlined below: PATIENT SUMMARY Jaime GOODE 59 y.o. female with Body mass index is 41.54 kg/m . not to make a decision regarding a weight loss procedure Procedure DM[] HTN[] MICHELLE[] GERD[x] HL[] OA[] TOB[] Date of Surgery: TBD NOTES MP PCP: INITIAL TESTING RESULTS Labwork [x] CMP, TSH, Fasting Lipid Profile, Mg, Zinc, Vit B1 (whole blood), Vit B12, 25-OH Vit D, Fe, Ferritin, Folate Tobacco [] Serum Nicotine / Cotinine [] Negative [] Positive EGD [x] Dx: [x] GERD [] Dyspepsia [] Other Pathology [x] H. pylori [] Negative [] Positive UGI [x] [] not ordered if patient is planning on Diana En Y US Abdomen [x] [] not ordered if S/P Radha MICHELLE eval [] [] On CPAP / Obtain settings Hematology [] [] Hypercoagulation panel Toxicology [] [] Urine drug screen [] EtOH screen Addtional [] [] Hgb A1c INITIAL CONSULTATIONS CLEARANCE / MANAGEMENT Psychology [x] Dr. Fontanezitibrielle [x] Cardiology [x] Pulmonary [x] Others [] []Heme/Onc []Psychiatry []Pain mgmt PSD [] Physician supervised diet: []None [x]3 mos []6 mos Preop diet [] Preop low calory diet: []None []1 wk [x]2 wks []Ext. FINAL PRE-OP TESTING RESULTS Labwork [x] [x]Pre-op CBC [x]BMP []Serum Nicotine / Cotinine EKG [x] CXR [x] POST-OP MEDICATIONS Ulcer Ppx [] Omeprazole 20 mg PO []QD []BID Gallstone Ppx [] Ursodiol 300 mg []BID DVT Ppx [] DVT prophylaxis per final preop visit estimated risk Estimated calculated risk: % Schedule final pre-operative office visit with surgeon, pre-operative education class, and pre-operative exercise class prior to date of surgery ATTESTATION I reviewed with the patient the details of the proposed operation. The risks benefits and options were discussed. Risks included but were not limited to bleeding, infection, damage to other surrounding organs, cardio-pulmonary complications related to anesthesia, conversion from laparoscopic to and open procedure, the need for reoperative or endoscopic therapy, the potential for prolonged mechanical ventilation, and . All questions were fully answered to the patient's satisfaction and they wish to proceed with surgical intervention. Patient with some reflux - will plan for EGD to evaluate stomach and decide on procedure. The face to face encounter was spent counseling the patient and discussing the risks,benefits and options of surgery as well as the perioperative care plan. The patient was seen and examined independently and relevant data including a full chart rreview was performed by myself. Initial New [facility] surgical patient Navigation & Financial Counseling Discussion Patient Communication: In office SURGEON: [] JANELLE [] AD [x] MP [] TB [] LM PROCEDURE: [] LRYGB [] LSG [] MARYLIN-S [] MARYLIN [] UNDECIDED [] REV: SPECIFY: Confirmed pt wants to continue with surgical program/plan [] YES [] NO (complete program withdrawal note/process) CO-MORBIDS: [] NONE [] DM []HTN [] MICHELLE []GERD [] OTH: PRIVATE PAY: [] NO []YES DATE OF INITIAL BENEFITS VERIFICATION: TRANSFER FU: [] YES [] NO PRIMARY INSURANCE: Payor: [employer] MEDICARE ADVANTAGE / Plan: [employer] MEDICARE / Product Type: Medicare HMO / BENEFIT ON PLAN: [] NO [] YES BENEFIT MAX: [] NO [] YES -- BENEFIT MAX: $ EMPLOYER: DIET AND EXERCISE (DE) REQUIREMENT PRIMARY [] NONE []3M [] 6M []9M [] Medicare 4 Months [] SPR (3M) []OTHER: SECONDARY INSURANCE: BENEFIT ON PLAN: [] NO [] YES BENEFIT MAX: [] NO [] YES -- BENEFIT MAX: $ AUTH REQUIRED FROM SECONDARY [] NO [] YES DIET AND EXERCISE REQUIREMENT SECONDARY [] NONE [x]3M [] 6M [] Medicare 4 months [] SPR (3M) []OTHER: ___ [x] Discussed with patient: Financial cost overview (document signed and pt given copy at new pt consult visit with surgeon), Initial appointments: Bariatric Nutrition Assessment (BNA) & Diet and Exercise (DE) Patient to look for yellow envelope in mail. This yellow envelope will contain orders for labs, testing and required clearances. Pt encouraged to complete early in program to prevent delays. Encourage blood work to be draw by 1st DE appointment. [x] Reviewed OOP cost, including: [x] Overview of inpatient admission benefits - estimated inpatient co-pays, deductibles and/or co-insurance - Estimated OOP costs form reviewed with patient, and copy given to patient at new pt visit. [x] Reviewed next steps with patient: 1) Scheduled at new pt surgeon visit: Director Of Event Sales (RD) for a Nutrition Assessment (BNA) and Pre-operative Diet and Exercise (DE) appointment #1. [x] Patient reminded to arrive 15 minutes early for check in. Late arrivals may need to be rescheduled. 2) Schedule: Diet and Exercise Apt #2 only scheduled after initial BNA and DE completed, 3) Behavioral Health apt scheduled after DE started. Reviewed rational and goal of Behavioral Health appointments. 4) [x] Reinforced need to cancel any WMI appointments 48 hours in advance. Cautioned NS/Same day cancellations may result in delay in program or program completion hold. Noted: DE series needs to be a monthly series or insurance company may require repeat of the entire series. 5) [x] Smoker/tobacco products including vaping: reviewed need for cessation before surgery clearance and life long abstinence after surgery for best outcomes. Patient navigation to surgery: [x] Explained to patient that average time from initial consult to date of surgery can be 6-8 months. - Process can take longer if there are cancelled appointments, delays in testing and/or additional clearances that needs to be completed. - Reviewed importance of patient active engagement in making and keeping appointments to keep the process moving. - Reinforced need to cancel appointments at least 48 hours in advance. Reviewed that instances of No Shows and Same Day Appointment Cancellations may result in program/surgery delay or hold. [x] Patient advised of importance of having voicemail and MyChart for office communications and lab/testing results before and after surgery. documented in this encounter [facility] 03-15-2025 Telephone encounter Note Patient call back- she goes to [facility]- clearance request faxed [facility] 03-15-2025 Miscellaneous Notes Patient call back- she goes to [facility]- clearance request faxed Spoke to patient. She somehow thought she had to have UGI BEFORE the EGD and that was what was worrying her. I assured her it was fine to schedule the UGI on April 19. She states she will call me back with name of her [employer] so I can fax a clearance request. Left another VM for patient requesting ret call. Left VM to call me at direct line. Unsure what the confusion/question is. MP Pt last seen yesterday w [facility]GS for D&E 2/3. Pt called and left message that the soonest she can get UGI done at [facility] is 04/19/25. MGS-does she need to try another location or just wait and have a 4th D&E in April? documented in this encounter [facility] 03-15-2025 Telephone encounter Note Spoke to patient. She somehow thought she had to have UGI BEFORE the EGD and that was what was worrying her. I assured her it was fine to schedule the UGI on April 19. She states she will call me back with name of her [employer] so I can fax a clearance request. [facility] 03-15-2025 Telephone encounter Note Left another VM for patient requesting ret call. [facility] 03-11-2025 Telephone encounter Note Left VM to call me at direct line. Unsure what the confusion/question is. [facility] 03-11-2025 Miscellaneous Notes Left VM to call me at direct line. Unsure what the confusion/question is. MP Pt last seen yesterday w [facility]GS for D&E 2/3. Pt called and left message that the soonest she can get UGI done at [facility] is 04/19/25. MGS-does she need to try another location or just wait and have a 4th D&E in April? documented in this encounter [facility] 03-11-2025 Telephone encounter Note MP Pt last seen yesterday w MGS for D&E 2/3. Pt called and left message that the soonest she can get UGI done at [facility] is 04/19/25. MGS-does she need to try another location or just wait and have a 4th D&E in April? [facility] 03-11-2025 Telephone encounter Note Order for recheck signed. [facility] Work Phone: 03-11-2025 Miscellaneous Notes Order for recheck signed. Pre-op patient Mycharted pt regarding high vitamin D (77). Rec'd pt stop taking 10,000 IU vitamin D daily for now and will recheck lab in three months. ----- Message from KENTON José CNP sent at 03/10/2025 12:58 PM EDT ----- Vit D is elevated - thanks documented in this encounter [facility] 03-11-2025 Telephone encounter Note Pre-op patient Mycharted pt regarding high vitamin D (77). Rec'd pt stop taking 10,000 IU vitamin D daily for now and will recheck lab in three months. [facility] 03-11-2025 Telephone encounter Note ----- Message from KENTON José CNP sent at 03/10/2025 12:58 PM EDT ----- Vit D is elevated - thanks [facility] 03-10-2025 Note Addended by: MARCELINA FLORES on: 03/10/2025 09:28 AM Modules accepted: Orders [facility] 03-10-2025 Note Addended by: MARCELINA FLORES on: 03/10/2025 09:28 AM Modules accepted: Orders [facility] 03-10-2025 Note Addended by: MARCELINA FLORES on: 03/10/2025 09:28 AM Modules accepted: Orders [facility] 03-10-2025 Note Addended by: MARCELINA FLORES on: 03/10/2025 09:28 AM Modules accepted: Orders [facility] 03-10-2025 Note Addended by: MARCELINA FLORES on: 03/10/2025 09:28 AM Modules accepted: Orders [facility] 03-10-2025 Note Addended by: MARCELINA FLORES on: 03/10/2025 09:28 AM Modules accepted: Orders [facility] 03-10-2025 Miscellaneous Notes Addended by: MARCELINA FLORES on: 03/10/2025 09:28 AM Modules accepted: Orders Addended by: MARCELINA FLORES on: 03/10/2025 09:27 AM Modules accepted: Orders Corrected. This is a 3 visit patient. Next visit marked 2 of 6- I do not know how to correct with new system. Thanks! Addended by: MATTIE BRADY on: 02/03/2025 11:56 AM Modules accepted: Orders Orders / pre op check list placed in folder for D/E 02/03/2025 W/ MGS. Addended by: TRISH BHATIA on: 01/28/2025 11:34 AM Modules accepted: Orders Orders signed. Called and left voicemail for patient to discuss decision of procedure she would like to have. Addended by: MATTIE BRADY on: 01/28/2025 09:37 AM Modules accepted: Orders EGD order sent to [address], labs pended, Pre op check list scanned to media. PLAN Encounter Diagnoses Name Primary? Morbid obesity, unspecified obesity type (HCC) Gastroesophageal reflux disease without esophagitis Morbid obesity with BMI of 40.0-44.9, adult (HCC) Hypothyroidism, unspecified type I have recommended proceeding with the evaluation and work-up for the primary procedure as outlined below: PATIENT SUMMARY Jaime GOODE 59 y.o. female with Body mass index is 41.54 kg/m . not to make a decision regarding a weight loss procedure Procedure DM[] HTN[] MICHELLE[] GERD[x] HL[] OA[] TOB[] Date of Surgery: TBD NOTES MP PCP: INITIAL TESTING RESULTS Labwork [x] CMP, TSH, Fasting Lipid Profile, Mg, Zinc, Vit B1 (whole blood), Vit B12, 25-OH Vit D, Fe, Ferritin, Folate Tobacco [] Serum Nicotine / Cotinine [] Negative [] Positive EGD [x] Dx: [x] GERD [] Dyspepsia [] Other Pathology [x] H. pylori [] Negative [] Positive UGI [x] [] not ordered if patient is planning on [place] En Y US Abdomen [x] [] not ordered if S/P Radha MICHELLE eval [] [] On CPAP / Obtain settings Hematology [] [] Hypercoagulation panel Toxicology [] [] Urine drug screen [] EtOH screen Addtional [] [] Hgb A1c INITIAL CONSULTATIONS CLEARANCE / MANAGEMENT Psychology [x] Dr. Matos [x] Cardiology [x] Pulmonary [x] Others [] []Heme/Onc []Psychiatry []Pain mgmt PSD [] Physician supervised diet: []None [x]3 mos []6 mos Preop diet [] Preop low calory diet: []None []1 wk [x]2 wks []Ext. FINAL PRE-OP TESTING RESULTS Labwork [x] [x]Pre-op CBC [x]BMP []Serum Nicotine / Cotinine EKG [x] CXR [x] POST-OP MEDICATIONS Ulcer Ppx [] Omeprazole 20 mg PO []QD []BID Gallstone Ppx [] Ursodiol 300 mg []BID DVT Ppx [] DVT prophylaxis per final preop visit estimated risk Estimated calculated risk: % Schedule final pre-operative office visit with surgeon, pre-operative education class, and pre-operative exercise class prior to date of surgery ATTESTATION I reviewed with the patient the details of the proposed operation. The risks benefits and options were discussed. Risks included but were not limited to bleeding, infection, damage to other surrounding organs, cardio-pulmonary complications related to anesthesia, conversion from laparoscopic to and open procedure, the need for reoperative or endoscopic therapy, the potential for prolonged mechanical ventilation, and . All questions were fully answered to the patient's satisfaction and they wish to proceed with surgical intervention. Patient with some reflux - will plan for EGD to evaluate stomach and decide on procedure. The face to face encounter was spent counseling the patient and discussing the risks,benefits and options of surgery as well as the perioperative care plan. The patient was seen and examined independently and relevant data including a full chart rreview was performed by myself. Initial New [facility] surgical patient Navigation & Financial Counseling Discussion Patient Communication: In office SURGEON: [] JANELLE [] AD [x] MP []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 Fatigue - yes STOPBang Questionnaire: SNORING: Do you snore loudly (loud enough to be heard through closed doors or your bed-partner elbows you for snoring at night)? yes TIRED: Do you often feel tired, fatigued or sleepy during the daytime (such as falling asleep during driving or talking to someone)? no OBSERVED: Has anyone observed you stop breathing or choking/gasping during your sleep? no PRESSURE: Do you have or are you being treated for high blood pressure? no BODY MASS INDEX >35: Body mass index is 41.77 kg/m . yes AGE >50: 59 y.o. yes NECK SIZE LARGE: (measured around the Miguel's apple) For male, is your shirt collar 17 inches or larger? For female, is your shirt collar 16 inches or larger? yes GENDER: Male no SCORE: 3-4 intermediate risk Score 1 point for each YES answer: Baseline Exercise tolerance/MMRC score( Bold ) MMRC Dyspnea Scale Grade Description of Breathlessness 0 I only get breathless with strenuous exercise. 1 I get short of breath when hurrying on level ground or walking up a slight hill. 2 On level ground, I walk slower than people of the same age because of breathlessness, or have to stop for breath when walking at my own pace. 3 I stop for breath after walking about 100 yards or after a few minutes on level ground. 4 I am too breathless to leave the house or I am breathless when dressing. Past Medical History: Past Medical History: Diagnosis Date Anxiety Back pain Depression GERD (gastroesophageal reflux disease) Morbid obesity, unspecified obesity type (HCC) 01/21/2025 Thyroid disease Social History: Social History Socioeconomic History Marital status: Tobacco Use Smoking status: Former Average packs/day: 1 pack/day for 44.8 years (44.8 ttl pk-yrs) Types: Cigarettes Start date: 05/11/1977 Smokeless tobacco: Never Tobacco comments: Quit smoking: Taking Chantix Substance and Sexual Activity Alcohol use: Never Drug use: Never Sexual activity: Never Family History: Family History Problem Relation Name Age of Onset Obesity Mother Diabetes Mother High Blood Pressure Mother Obesity Father Diabetes Father High Blood Pressure Father Heart disease Father Stroke Father Heart disease Sister Obesity Sister Heart disease Brother High Blood Pressure Brother ROS: Review of Systems Constitutional: Negative for chills, fatigue and fever. Respiratory: Negative for cough, chest tightness, shortness of breath and wheezing. Cardiovascular: Negative for chest pain, palpitations and leg swelling. Gastrointestinal: Negative for diarrhea, nausea and vomiting. Psychiatric/Behavioral: Negative for sleep disturbance. All other systems reviewed and are negative. Medications: @MEDCMED@ Allergies: No Known Allergies Vital Signs: BP 123/75 (BP Location: Left arm, Patient Position: Sitting, BP Cuff Size: Adult) Pulse 76 Resp 14 Ht 5' 5 (1.651 m) Wt 251 lb (114 kg) SpO2 95% Comment: RA BMI 41.77 kg/m Physical Exam: Physical Exam Constitutional: General: She is not in acute distress. Appearance: Normal appearance. She is obese. HENT: Head: Normocephalic and atraumatic. Nose: Nose normal. No congestion or rhinorrhea. Cardiovascular: Rate and Rhythm: Normal rate and regular rhythm. Heart sounds: Normal heart sounds. No murmur heard. No friction rub. No gallop. Pulmonary: Effort: Pulmonary effort is normal. No respiratory distress. Breath sounds: Normal breath sounds. No wheezing, rhonchi or rales. Musculoskeletal: Right lower leg: No edema. Left lower leg: No edema. Neurological: Mental Status: She is alert and oriented to person, place, and time. Psychiatric: Mood and Affect: Mood normal. Behavior: Behavior normal. Thought Content: Thought content normal. Judgment: Judgment normal. Assessment and Plan: Diagnosis Plan 1. Pre-op testing Referred to pulmonary for bariatric clearance. ESS 3 and STOP BANG demonstrates an intermediate risk for MICHELLE. -ARISCAT score indicates that this patient is low risk for post-operative complications including, but not limited to, atelectasis, respiratory infection, exacerbation of underlying chronic lung disease, hypoxia and respiratory failure. - Recommend early ambulation, pulmonary toilet to prevent post-operative complications. 2. Gastroesophageal reflux disease without esophagitis Reports that her symptoms are well controlled on daily Protonix. Has EGD scheduled 02/25/25. 3. Morbid obesity with BMI of 40.0-44.9, adult (HCC) BMI 41.77. Pt could benefit from weight loss surgery. 4. Cigarette nicotine dependence in remission Congratulated her on remaining smoke free since 2018. Previously on Chantix. Encouraged her to remain smoke free. Given patient's pack year history and current age, pt qualifies for LDCT for lung cancer screening. Pt agrees. Will order. - CT lung screening low dose Follow-up: Patient to follow up PRN or if symptoms worsen. documented in this encounter [facility] 02-19-2025 Instructions Geri Phillips MA - 02/19/2025 10:40 AM EDT YOUR APPOINTMENT TODAY WAS WITH THE [facility] LUNG NODULE CLINIC, COPD CLINIC, PULMONARY AND SLEEP MEDICINE OFFICE. PLEASE CALL OUR OFFICE AT [phone] IF YOU HAVE NOT RECEIVED YOUR TEST RESULTS 7 DAYS AFTER TESTING IS COMPLETED. PLEASE REMEMBER TO REQUEST REFILLS AT YOUR OFFICE VISITS. PHONE/FAX REQUESTS REQUIRE 48-72 HOURS FOR RESPONSE. A FRIENDLY REMINDER COPAYS ARE DUE AT TIME OF SERVICE. THANK YOU. Our Patients Are Important! We want to improve and you can help. After your visit we want you to feel: Listened to, Respected and have your health care explained. You may receive a survey asking you about your visit. Please complete the survey. We will use your feedback to make improvements. COVID-19 VACCINATION INFORMATION: PH. [phone] [email or web address] [facility] Central Scheduling [phone] [facility] Sleep Scheduling [phone] documented in this encounter [facility] 02-03-2025 Note Addended by: Fox BRADY on: 02/03/2025 11:56 AM Modules accepted: Orders [facility] 02-03-2025 Note Addended by: Fox BRADY on: 02/03/2025 11:56 AM Modules accepted: Orders [facility] 02-03-2025 Note Addended by: Fox BRADY on: 02/03/2025 11:56 AM Modules accepted: Orders [facility] 02-03-2025 Note Addended by: Fox BRADY on: 02/03/2025 11:56 AM Modules accepted: Orders [facility] 02-03-2025 Note Addended by: Fox BRADY on: 02/03/2025 11:56 AM Modules accepted: Orders [facility] 02-03-2025 Note Addended by: Fox BRADY on: 02/03/2025 11:56 AM Modules accepted: Orders [facility] 02-03-2025 Note Addended by: Fox BRADY on: 02/03/2025 11:56 AM Modules accepted: Orders [facility] 02-03-2025 Note Addended by: Fox BRADY on: 02/03/2025 11:56 AM Modules accepted: Orders [facility] 02-03-2025 Note Addended by: Fox BRADY on: 02/03/2025 11:56 AM Modules accepted: Orders [facility] 02-03-2025 Miscellaneous Notes Addended by: MATTIE BRADY on: 02/03/2025 11:56 AM Modules accepted: Orders Orders / pre op check list placed in folder for D/E 02/03/2025 W/ MGS. Addended by: TRISH BHATIA on: 01/28/2025 11:34 AM Modules accepted: Orders Orders signed. Called and left voicemail for patient to discuss decision of procedure she would like to have. Addended by: MATTIE BRADY on: 01/28/2025 09:37 AM Modules accepted: Orders EGD order sent to [address] taper, labs pended, Pre op check list scanned to [facility]. PLAN Encounter Diagnoses Name Primary? Morbid obesity, unspecified obesity type (HCC) Gastroesophageal reflux disease without esophagitis Morbid obesity with BMI of 40.0-44.9, adult (HCC) Hypothyroidism, unspecified type I have recommended proceeding with the evaluation and work-up for the primary procedure as outlined below: PATIENT SUMMARY Jaime GOODE 59 y.o. female with Body mass index is 41.54 kg/m . not to make a decision regarding a weight loss procedure Procedure DM[] HTN[] MICHELLE[] GERD[x] HL[] OA[] TOB[] Date of Surgery: TBD NOTES MP PCP: INITIAL TESTING RESULTS Labwork [x] CMP, TSH, Fasting Lipid Profile, Mg, Zinc, Vit B1 (whole blood), Vit B12, 25-OH Vit D, Fe, Ferritin, Folate Tobacco [] Serum Nicotine / Cotinine [] Negative [] Positive EGD [x] Dx: [x] GERD [] Dyspepsia [] Other Pathology [x] H. pylori [] Negative [] Positive UGI [x] [] not ordered if patient is planning on Diana En Y US Abdomen [x] [] not ordered if S/P Radah MICHELLE eval [] [] On CPAP / Obtain settings Hematology [] [] Hypercoagulation panel Toxicology [] [] Urine drug screen [] EtOH screen Addtional [] [] Hgb A1c INITIAL CONSULTATIONS CLEARANCE / MANAGEMENT Psychology [x] Dietitian [x] Cardiology [x] Pulmonary [x] Others [] []Heme/Onc []Psychiatry []Pain mgmt PSD [] Physician supervised diet: []None [x]3 mos []6 mos Preop diet [] Preop low calory diet: []None []1 wk [x]2 wks []Ext. FINAL PRE-OP TESTING RESULTS Labwork [x] [x]Pre-op CBC [x]BMP []Serum Nicotine / Cotinine EKG [x] CXR [x] POST-OP MEDICATIONS Ulcer Ppx [] Omeprazole 20 mg PO []QD []BID Gallstone Ppx [] Ursodiol 300 mg []BID DVT Ppx [] DVT prophylaxis per final preop visit estimated risk Estimated calculated risk: % Schedule final pre-operative office visit with surgeon, pre-operative education class, and pre-operative exercise class prior to date of surgery ATTESTATION I reviewed with the patient the details of the proposed operation. The risks benefits and options were discussed. Risks included but were not limited to bleeding, infection, damage to other surrounding organs, cardio-pulmonary complications related to anesthesia, conversion from laparoscopic to and open procedure, the need for reoperative or endoscopic therapy, the potential for prolonged mechanical ventilation, and . All questions were fully answered to the patient's satisfaction and they wish to proceed with surgical intervention. Patient with some reflux - will plan for EGD to evaluate stomach and decide on procedure. The face to face encounter was spent counseling the patient and discussing the risks,benefits and options of surgery as well as the perioperative care plan. The patient was seen and examined independently and relevant data including a full chart rreview was performed by myself. Initial New [facility] surgical patient Navigation & Financial Counseling Discussion Patient Communication: In office SURGEON: [] JANELLE [] SENG [x] MP [] TB [] LM PROCEDURE: [] LRYGB [] LSG [] MARLYIN-S [] MARYLIN [] UNDECIDED [] REV: SPECIFY: Confirmed pt wants to continue with surgical program/plan [] YES [] NO (complete program withdrawal note/process) CO-MORBIDS: [] NONE [] DM []HTN [] MICHELLE []GERD [] OTH: PRIVATE PAY: [] NO []YES DATE OF INITIAL BENEFITS VERIFICATION: TRANSFER FU: [] YES [] NO PRIMARY INSURANCE: Payor: [employer] MEDICARE ADVANTAGE / Plan: [employer] MEDICARE / Product Type: Medicare HMO / BENEFIT ON PLAN: [] NO [] YES BENEFIT MAX: [] NO [] YES -- BENEFIT MAX: $ EMPLOYER: DIET AND EXERCISE (DE) REQUIREMENT PRIMARY [] NONE []3M [] 6M []9M [] Medicare 4 Months [] SPR (3M) []OTHER: SECONDARY INSURANCE: BENEFIT ON PLAN: [] NO [] YES BENEFIT MAX: [] NO [] YES -- BENEFIT MAX: $ AUTH REQUIRED FROM SECONDARY [] NO [] YES DIET AND EXERCISE REQUIREMENT SECONDARY [] NONE [x]3M [] 6M [] Medicare 4 months [] SPR (3M) []OTHER: ___ [x] Discussed with patient: Financial cost overview (document signed and pt given copy at new pt consult visit with surgeon), Initial appointments: Bariatric Nutrition Assessment (BNA) & Diet and Exercise (DE) Patient to look for yellow envelope in mail. This yellow envelope will contain orders for labs, testing and required clearances. Pt encouraged to complete early in program to prevent delays. Encourage blood work to be draw by 1st DE appointment. [x] Reviewed OOP cost, including: [x] Overview of inpatient admission benefits - estimated inpatient co-pays, deductibles and/or co-insurance - Estimated OOP costs form reviewed with patient, and copy given to patient at new pt visit. [x] Reviewed next steps with patient: 1) Scheduled at new pt surgeon visit: Director Of Event Sales (RD) for a Nutrition Assessment (BNA) and Pre-operative Diet and Exercise (DE) appointment #1. [x] Patient reminded to arrive 15 minutes early for check in. Late arrivals may need to be rescheduled. 2) Schedule: Diet and Exercise Apt #2 only scheduled after initial BNA and DE completed, 3) Behavioral Health apt scheduled after DE started. Reviewed rational and goal of Behavioral Health appointments. 4) [x] Reinforced need to cancel any WMI appointments 48 hours in advance. Cautioned NS/Same day cancellations may result in delay in program or program completion hold. Noted: DE series needs to be a monthly series or insurance company may require repeat of the entire series. 5) [x] Smoker/tobacco products including vaping: reviewed need for cessation before surgery clearance and life long abstinence after surgery for best outcomes. Patient navigation to surgery: [x] Explained to patient that average time from initial consult to date of surgery can be 6-8 months. - Process can take longer if there are cancelled appointments, delays in testing and/or additional clearances that needs to be completed. - Reviewed importance of patient active engagement in making and keeping appointments to keep the process moving. - Reinforced need to cancel appointments at least 48 hours in advance. Reviewed that instances of No Shows and Same Day Appointment Cancellations may result in program/surgery delay or hold. [x] Patient advised of importance of having voicemail and MyChart for office communications and lab/testing results before and after surgery. documented in this encounter [facility] 02-03-2025 History of Present illness Narrative See TE records requests - Bariatric records for further documentation [facility] SURGICAL WEIGHT LOSS MANAGEMENT PROGRAM SUPERVISED DIET AND EXERCISE SURGICAL PREPARATORY REGIMEN PROGRESS NOTE INITIAL EVALUATION Patient: Jaime Oneill Service Date: 02/03/2025 Date of : 1965 Patient History/Assessment Summary: The patient is a pleasant 59 y.o. year old female, who stands Height: 5' 5 (165.1 cm) ([facility]) tall with a weight of Weight: 249 lb (113 kg) pounds, resulting in a BMI of Body mass index is 41.44 kg/m . kg/m2. She has been overweight for years, has tried and failed multiple previous diet attempts, and is now in the process of undergoing evaluation for surgical treatment of their obesity. She is here today to initiate monthly physician supervised diet and exercise as part of their surgical preparatory regimen. History: Past Medical History: Diagnosis Date Anxiety Back pain Depression GERD (gastroesophageal reflux disease) Morbid obesity, unspecified obesity type (HCC) 01/21/2025 Thyroid disease Past Surgical History: Procedure Laterality Date CHOLECYSTECTOMY 2004 HYSTERECTOMY 2006 partial Family History Problem Relation Name Age of Onset Obesity Mother Diabetes Mother High Blood Pressure Mother Obesity Father Diabetes Father High Blood Pressure Father Heart disease Father Stroke Father Heart disease Sister Obesity Sister Heart disease Brother High Blood Pressure Brother Social History Tobacco Use Smoking status: Former Average packs/day: 1 pack/day for 44.8 years (44.8 ttl pk-yrs) Types: Cigarettes Start date: 05/11/1977 Smokeless tobacco: Never Tobacco comments: Quit smoking: Taking Chantix Substance Use Topics Alcohol use: Never This patient's excess weight is causing the following co-morbid conditions at this time:GERD and Obesity Initial Diet & Exercise/SPR Visit Weight Metrics: Date of Initial Diet & Exercise Visit: Consult Date: 02/03/25 Initial Weight: Initial Weight: 249 lb (113 kg) Initial BMI: Initial BMI: 41.43 [place] Body Weight: [place] Body Weight: 125 lb (56.7 kg) Excess Body Weight: EBW: 124 lb Physical Examination: BP 116/76 Pulse 94 Temp 36.4 C (97.5 F) Resp 18 Ht 5' 5 (1.651 m) Comment: BCC Wt 249 lb (113 kg) BMI 41.44 kg/m General: This patient is alert and oriented and is in no apparent distress. Cardiac: Regular rate Respiratory: No evidence of respiratory distress Musculoskeletal: No cyanosis, No calf tenderness/No restrictions of movement, is ambulatory without assistance; Psychological: Patient's mood is appropriate Current Diet This patient s current diet is:high in simple carbohydrates Reviewed PAST DIET HISTORY FORM and CURRENT DIET HISTORY FORM with patient (located in [employer]) Her diet contains adequate amounts of protein, adequate amounts of healthy fats, adequate amounts of green, leafy vegetables, and adequate amounts of fruits. Her comfort foods include:sweets, breads, potatoes, and salty foods Current Activity This patient currently does exercise. She goes to gym - 2 x week - treadmill 30 min arm lifts and leg work outs Current Eating Behaviors This patients demonstrates the following behaviors as they relate to her eating:eats large portions, eats at night, snacks frequently, eats in response to stress, eats large amounts of food at one sitting, and eats while watching television She eats approximately 5-6 times per day. Her last meal/snack was at 4-5 pm - snack popcorn 7-8 pm - bedtime 8-11 pm. Current Eating Patterns: What time is dinner, any carbs after dinner: 2. What do you drink for beverages: --water / coffee / diet caffeine free soda - 3. Do you eat breakfast: yes 4. Protein with most meals and snacks: yes 5. Carbs: any starchy vegetables, high sugar fruits, processed grains, desserts: Salad / chick / croutons Broccoli and cheese dinner Snack none MDM- pt's medical conditions place them at moderate risk of complications, morbidity and mortality. Plan: Diagnosis Managing: GERD: stable. continue medical management, Diet & Exercise, and plan for metabolic weight loss surgery. and Obesity/WT: stable, - <9> Pt has a good understanding of diet but will try to increase physical activity. - F/U in one month. INITIAL D/E 11/13 Goals: Protein will be added to all carbs Will incorporate vegan recipes Will incorporate protein smoothie after work out Discussed surgical checklist with patient. Answered patient's questions. Discussed folder given to patient with information on food, such as, eating, carbohydrate and protein snacks, mindful eating, low-carb snack ideas, and 7 rules of eating. Advised patient that She must adhere to regular monthly visits to meet the requirements of her insurance company. Additionally, She must lose approximately one pound per month to demonstrate readiness for the changes that will be required following surgery. Physician Diet Recommendations provided to patient Patient to return for follow up in one month Current Meds Patient's Medications New Prescriptions No medications on file Previous Medications B COMPLEX-C (SUPER B COMPLEX PO) Take 1 tablet by mouth daily. BIOTIN 5000 MCG CAPSULE Take 3 capsules by mouth daily. CALCIUM CARBONATE (CALCIUM 600 PO) Take 1 tablet by mouth daily. CHOLECALCIFEROL (VITAMIN D-3) 250 MCG (97722 UT) TABLET Take 10,000 Units by mouth daily. CITALOPRAM (CELEXA) 20 MG TABLET Take 20 mg by mouth daily. LEVOTHYROXINE (SYNTHROID, LEVOXYL) 125 MCG TABLET Take 125 mcg by mouth daily. MULTIPLE VITAMINS-MINERALS (CENTRUM SILVER ULTRA WOMENS PO) Take 1 tablet by mouth daily. PANTOPRAZOLE (PROTONIX) 40 MG EC TABLET Take 40 mg by mouth daily. UNABLE TO FIND Take 4 tablets by mouth daily. Med Name: Focus Factor Modified Medications No medications on file Discontinued Medications No medications on file documented in this encounter [facility] 01-28-2025 Telephone encounter Note Orders / pre op check list placed in folder for D/E 02/03/2025 W/ MGS. [facility] 01-28-2025 Miscellaneous Notes Orders / pre op check list placed in folder for D/E 02/03/2025 W/ MGS. Addended by: TRISH BHATIA on: 01/28/2025 11:34 AM Modules accepted: Orders Orders signed. Called and left voicemail for patient to discuss decision of procedure she would like to have. Addended by: MATTIE BRADY on: 01/28/2025 09:37 AM Modules accepted: Orders EGD order sent to [address] taper, labs pended, Pre op check list scanned to media. PLAN Encounter Diagnoses Name Primary? Morbid obesity, unspecified obesity type (HCC) Gastroesophageal reflux disease without esophagitis Morbid obesity with BMI of 40.0-44.9, adult (HCC) Hypothyroidism, unspecified type I have recommended proceeding with the evaluation and work-up for the primary procedure as outlined below: PATIENT SUMMARY Jaime GOODE 59 y.o. female with Body mass index is 41.54 kg/m . not to make a decision regarding a weight loss procedure Procedure DM[] HTN[] MICHELLE[] GERD[x] HL[] OA[] TOB[] Date of Surgery: TBD NOTES MP PCP: INITIAL TESTING RESULTS Labwork [x] CMP, TSH, Fasting Lipid Profile, Mg, Zinc, Vit B1 (whole blood), Vit B12, 25-OH Vit D, Fe, Ferritin, Folate Tobacco [] Serum Nicotine / Cotinine [] Negative [] Positive EGD [x] Dx: [x] GERD [] Dyspepsia [] Other Pathology [x] H. pylori [] Negative [] Positive UGI [x] [] not ordered if patient is planning on Diana En Y US Abdomen [x] [] not ordered if S/P Radha MICHELLE eval [] [] On CPAP / Obtain settings Hematology [] [] Hypercoagulation panel Toxicology [] [] Urine drug screen [] EtOH screen Addtional [] [] Hgb A1c INITIAL CONSULTATIONS CLEARANCE / MANAGEMENT Psychology [x] Dr. Fontanezitibrielle [x] Cardiology [x] Pulmonary [x] Others [] []Heme/Onc []Psychiatry []Pain mgmt PSD [] Physician supervised diet: []None [x]3 mos []6 mos Preop diet [] Preop low calory diet: []None []1 wk [x]2 wks []Ext. FINAL PRE-OP TESTING RESULTS Labwork [x] [x]Pre-op CBC [x]BMP []Serum Nicotine / Cotinine EKG [x] CXR [x] POST-OP MEDICATIONS Ulcer Ppx [] Omeprazole 20 mg PO []QD []BID Gallstone Ppx [] Ursodiol 300 mg []BID DVT Ppx [] DVT prophylaxis per final preop visit estimated risk Estimated calculated risk: % Schedule final pre-operative office visit with surgeon, pre-operative education class, and pre-operative exercise class prior to date of surgery ATTESTATION I reviewed with the patient the details of the proposed operation. The risks benefits and options were discussed. Risks included but were not limited to bleeding, infection, damage to other surrounding organs, cardio-pulmonary complications related to anesthesia, conversion from laparoscopic to and open procedure, the need for reoperative or endoscopic therapy, the potential for prolonged mechanical ventilation, and . All questions were fully answered to the patient's satisfaction and they wish to proceed with surgical intervention. Patient with some reflux - will plan for EGD to evaluate stomach and decide on procedure. The face to face encounter was spent counseling the patient and discussing the risks,benefits and options of surgery as well as the perioperative care plan. The patient was seen and examined independently and relevant data including a full chart rreview was performed by myself. Initial New [facility] surgical patient Navigation & Financial Counseling Discussion Patient Communication: In office SURGEON: [] JANELLE [] AD [x] MP [] TB [] LM PROCEDURE: [] LRYGB [] LSG [] MARYLIN-S [] MARYLIN [] UNDECIDED [] REV: SPECIFY: Confirmed pt wants to continue with surgical program/plan [] YES [] NO (complete program withdrawal note/process) CO-MORBIDS: [] NONE [] DM []HTN [] MICHELLE []GERD [] OTH: PRIVATE PAY: [] NO []YES DATE OF INITIAL BENEFITS VERIFICATION: TRANSFER FU: [] YES [] NO PRIMARY INSURANCE: Payor: [employer] MEDICARE ADVANTAGE / Plan: [employer] MEDICARE / Product Type: Medicare HMO / BENEFIT ON PLAN: [] NO [] YES BENEFIT MAX: [] NO [] YES -- BENEFIT MAX: $ EMPLOYER: DIET AND EXERCISE (DE) REQUIREMENT PRIMARY [] NONE []3M [] 6M []9M [] Medicare 4 Months [] SPR (3M) []OTHER: SECONDARY INSURANCE: BENEFIT ON PLAN: [] NO [] YES BENEFIT MAX: [] NO [] YES -- BENEFIT MAX: $ AUTH REQUIRED FROM SECONDARY [] NO [] YES DIET AND EXERCISE REQUIREMENT SECONDARY [] NONE [x]3M [] 6M [] Medicare 4 months [] SPR (3M) []OTHER: ___ [x] Discussed with patient: Financial cost overview (document signed and pt given copy at new pt consult visit with surgeon), Initial appointments: Bariatric Nutrition Assessment (BNA) & Diet and Exercise (DE) Patient to look for yellow envelope in mail. This yellow envelope will contain orders for labs, testing and required clearances. Pt encouraged to complete early in program to prevent delays. Encourage blood work to be draw by 1st DE appointment. [x] Reviewed OOP cost, including: [x] Overview of inpatient admission benefits - estimated inpatient co-pays, deductibles and/or co-insurance - Estimated OOP costs form reviewed with patient, and copy given to patient at new pt visit. [x] Reviewed next steps with patient: 1) Scheduled at new pt surgeon visit: Director Of Event Sales (RD) for a Nutrition Assessment (BNA) and Pre-operative Diet and Exercise (DE) appointment #1. [x] Patient reminded to arrive 15 minutes early for check in. Late arrivals may need to be rescheduled. 2) Schedule: Diet and Exercise Apt #2 only scheduled after initial BNA and DE completed, 3) Behavioral Health apt scheduled after DE started. Reviewed rational and goal of Behavioral Health appointments. 4) [x] Reinforced need to cancel any WMI appointments 48 hours in advance. Cautioned NS/Same day cancellations may result in delay in program or program completion hold. Noted: DE series needs to be a monthly series or insurance company may require repeat of the entire series. 5) [x] Smoker/tobacco products including vaping: reviewed need for cessation before surgery clearance and life long abstinence after surgery for best outcomes. Patient navigation to surgery: [x] Explained to patient that average time from initial consult to date of surgery can be 6-8 months. - Process can take longer if there are cancelled appointments, delays in testing and/or additional clearances that needs to be completed. - Reviewed importance of patient active engagement in making and keeping appointments to keep the process moving. - Reinforced need to cancel appointments at least 48 hours in advance. Reviewed that instances of No Shows and Same Day Appointment Cancellations may result in program/surgery delay or hold. [x] Patient advised of importance of having voicemail and MyChart for office communications and lab/testing results before and after surgery. documented in this encounter [employer] [facility] 01-28-2025 Note Addended by: TRISH GOMES on: 01/28/2025 11:34 AM Modules accepted: Orders [facility] 01-28-2025 Note Addended by: TRISH GOMES on: 01/28/2025 11:34 AM Modules accepted: Orders [facility] 01-28-2025 Note Addended by: TRISH GOMES on: 01/28/2025 11:34 AM Modules accepted: Orders [facility] 01-28-2025 Note Addended by: TRISH GOMES on: 01/28/2025 11:34 AM Modules accepted: Orders [facility] 01-28-2025 Note Addended by: TRISH GOMES on: 01/28/2025 11:34 AM Modules accepted: Orders [facility] 01-28-2025 Note Addended by: TRISH GOMES on: 01/28/2025 11:34 AM Modules accepted: Orders [facility] 01-28-2025 Note Addended by: TRISH GOMES on: 01/28/2025 11:34 AM Modules accepted: Orders T [facility] 01-28-2025 Note Addended by: TRISH GOMES on: 01/28/2025 11:34 AM Modules accepted: Orders T [facility] 01-28-2025 Note Addended by: TRISH GOMES on: 01/28/2025 11:34 AM Modules accepted: Orders T [facility] 01-28-2025 Note Addended by: TRISH GOMES on: 01/28/2025 11:34 AM Modules accepted: Orders [facility] 01-28-2025 Note Addended by: TRISH GOMES on: 01/28/2025 11:34 AM Modules accepted: Orders [facility] 01-28-2025 Note Addended by: TRISH GOMES on: 01/28/2025 11:34 AM Modules accepted: Orders [facility] 01-28-2025 Note Orders signed. Called and left voicemail for patient to discuss decision of procedure she would like to have. [facility] 01-28-2025 Telephone encounter Note Orders signed. Called and left voicemail for patient to discuss decision of procedure she would like to have. [facility] 01-28-2025 Note Addended by: Fox BRADY on: 01/28/2025 09:37 AM Modules accepted: Orders [facility] 01-28-2025 Note Addended by: Fox BRADY on: 01/28/2025 09:37 AM Modules accepted: Orders [facility] 01-28-2025 Note Addended by: Fox BRADY on: 01/28/2025 09:37 AM Modules accepted: Orders [facility] 01-28-2025 Note Addended by: Fox BRADY on: 01/28/2025 09:37 AM Modules accepted: Orders [facility] 01-28-2025 Note Addended by: Fox BRADY on: 01/28/2025 09:37 AM Modules accepted: Orders [facility] 01-28-2025 Note Addended by: Fox BRADY on: 01/28/2025 09:37 AM Modules accepted: Orders T [facility] 01-28-2025 Note Addended by: Fox BRADY on: 01/28/2025 09:37 AM Modules accepted: Orders [facility] 01-28-2025 Note Addended by: Fox BRADY on: 01/28/2025 09:37 AM Modules accepted: Orders T [facility] 01-28-2025 Note Addended by: Fox BRADY on: 01/28/2025 09:37 AM Modules accepted: Orders T [facility] 01-28-2025 Note Addended by: Fox BRADY on: 01/28/2025 09:37 AM Modules accepted: Orders T [facility] 01-28-2025 Note Addended by: Fox BRADY on: 01/28/2025 09:37 AM Modules accepted: Orders [facility] 01-28-2025 Note Addended by: Fox BRADY on: 01/28/2025 09:37 AM Modules accepted: Orders [employer] [facility] 01-28-2025 Telephone encounter Note EGD order sent to [address] taper, labs pended, Pre op check list scanned to media. [facility] 01-28-2025 History of Present illness Narrative ENDOSCOPY ORDERS To be scheduled with: Dr. Santiago Patient is: Pre-op/Pre-Bariatric Surgery CPT code: EGD with biopsy- CPT 65127 Diagnosis: GERD- K21.9 If pre-op, Diet & Exercise Requirements are, and started/scheduled on 02/03/2025: 3 months Home O2: No Known Difficult Intubation: No The medication list needs reviewed at time of scheduling and again at time of reminder call. GLP-1 agonists: Semaglutide Brand names- Ozempic, Wegovy or Rybelsus needs held 1 week prior to procedure Tirzepatide Brand names- Mounjaro or Zepbound- needs held 1 week prior to procedure Dulaglutide (Trulicity)- needs held 1 week prior to procedure Liraglutide (Victoza)- daily injectable that just needs held 1 day before procedure) Exenatide Brand name Bydureon- needs held 1 week prior to procedure Brand name Byetta- daily injectable and just needs held 1 day before procedure Blood thinners: Aspirin Xarleto (rivaroxaban) Eliquis (apixaban) Plavix (clopidogrel) Warfarin/Jantoven (coumadin) Brillinta (ticagrelor) Pradaxa (dabigatran) SGLT2 inhibitors: Invokana (canagliflozin) Farxiga (dapaglifozin) Jardiance (empagliflozin) Steglatro (ertugliflozin) Brenzavvy (bexagliflozin) If endoscopy is scheduled within 17 days authorization will need to be obtained prior to scheduling Print Attempt to contact patient, no answer, left voice message regarding scheduling an EGD procedure Patient is scheduled for EGD with biopsy- CPT 21234 on 02/25/2025 at 1:45 95 ARCH Contact attempts- 3 must be made in 2 different forms. Discussed with patient via phone and sent [employer] message after confirming pt active on [employer] Important info discussed as applicable: Is patient on a GLP-1 agonist? Yes If yes- which one? Semaglutide (Ozempic) Please advise that patient hold this medication for 1 week before EGD (a couple exceptions in list-please note if they are daily only held day prior to procedure) Is patient on a blood thinner? No If yes- which one? N/A Please advise that patient discuss instructions for holding this medication with the prescribing provider Is patient on an SGLT-2 inhibitor? No If yes- which one? N/A Please advise that this medication needs held 3 days prior to EGD ADDED TO OUTLOOK Auth required: Yes Insurance: [employer] referred to [facility] ID number: [id number] Authorization number: [id number] Valid dates: 02/25/25 to 05/27/2025 Notes: Tracking # [id number] documented in this encounter [facility] 01-28-2025 History of Present illness Narrative ENDOSCOPY ORDERS To be scheduled with: Dr. Santiago Patient is: Pre-op/Pre-Bariatric Surgery CPT code: EGD with biopsy- CPT 62186 Diagnosis: GERD- K21.9 If pre-op, Diet & Exercise Requirements are, and started/scheduled on 02/03/2025: 3 months Home O2: No Known Difficult Intubation: No The medication list needs reviewed at time of scheduling and again at time of reminder call. GLP-1 agonists: Semaglutide Brand names- Ozempic, Wegovy or Rybelsus needs held 1 week prior to procedure Tirzepatide Brand names- Mounjaro or Zepbound- needs held 1 week prior to procedure Dulaglutide (Trulicity)- needs held 1 week prior to procedure Liraglutide (Victoza)- daily injectable that just needs held 1 day before procedure) Exenatide Brand name Bydureon- needs held 1 week prior to procedure Brand name Byetta- daily injectable and just needs held 1 day before procedure Blood thinners: Aspirin Xarleto (rivaroxaban) Eliquis (apixaban) Plavix (clopidogrel) Warfarin/Jantoven (coumadin) Brillinta (ticagrelor) Pradaxa (dabigatran) SGLT2 inhibitors: Invokana (canagliflozin) Farxiga (dapaglifozin) Jardiance (empagliflozin) Steglatro (ertugliflozin) Brenzavvy (bexagliflozin) If endoscopy is scheduled within 17 days authorization will need to be obtained prior to scheduling Print Attempt to contact patient, no answer, left voice message regarding scheduling an EGD procedure Patient is scheduled for EGD with biopsy- CPT 08647 on 02/25/2025 at 1:45 95 ARCH Contact attempts- 3 must be made in 2 different forms. Discussed with patient via phone and sent [employer] message after confirming pt active on mychart Important info discussed as applicable: Is patient on a GLP-1 agonist? Yes If yes- which one? Semaglutide (Ozempic) Please advise that patient hold this medication for 1 week before EGD (a couple exceptions in list-please note if they are daily only held day prior to procedure) Is patient on a blood thinner? No If yes- which one? N/A Please advise that patient discuss instructions for holding this medication with the prescribing provider Is patient on an SGLT-2 inhibitor? No If yes- which one? N/A Please advise that this medication needs held 3 days prior to EGD ADDED TO OUTLOOK Auth required: Yes Insurance: [employer] referred to [facility] ID number: [id number] Authorization number: [id number] Valid dates: 02/25/25 to 05/27/2025 Notes: Tracking # [id number] Patient is scheduled for EGD with biopsy- CPT 61631 on 03/25/25 at 145PM Contact attempts- 3 must be made in 2 different forms. Discussed with patient via phone and sent [employer] message after confirming pt active on [employer] Important info discussed as applicable: Is patient on a GLP-1 agonist? No If yes- which one? N/A Please advise that patient hold this medication for 1 week before EGD (a couple exceptions in list-please note if they are daily only held day prior to procedure) Is patient on a blood thinner? No If yes- which one? N/A Please advise that patient discuss instructions for holding this medication with the prescribing provider Is patient on an SGLT-2 inhibitor? No If yes- which one? N/A Please advise that this medication needs held 3 days prior to EGD Auth required: Yes Insurance: [employer] referred to [facility] ID number: [id number] Authorization number: [id number] Valid dates: 02/25/25 to 05/27/2025 Notes: Tracking # [id number] [facility] [facility] 01-28-2025 Note Attempt to contact p atient, no answer, left voice message regarding scheduling an EGD procedure [facility] 01-28-2025 Telephone encounter Note PLAN Encounter Diagnoses Name Primary? Morbid obesity, unspecified obesity type (HCC) Gastroesophageal reflux disease without esophagitis Morbid obesity with BMI of 40.0-44.9, adult (HCC) Hypothyroidism, unspecified type I have recommended proceeding with the evaluation and work-up for the primary procedure as outlined below: PATIENT SUMMARY Jaime GOODE 59 y.o. female with Body mass index is 41.54 kg/m . not to make a decision regarding a weight loss procedure Procedure DM[] HTN[] MICHELLE[] GERD[x] HL[] OA[] TOB[] Date of Surgery: TBD NOTES MP PCP: INITIAL TESTING RESULTS Labwork [x] CMP, TSH, Fasting Lipid Profile, Mg, Zinc, Vit B1 (whole blood), Vit B12, 25-OH Vit D, Fe, Ferritin, Folate Tobacco [] Serum Nicotine / Cotinine [] Negative [] Positive EGD [x] Dx: [x] GERD [] Dyspepsia [] Other Pathology [x] H. pylori [] Negative [] Positive UGI [x] [] not ordered if patient is planning on Diana En Y US Abdomen [x] [] not ordered if S/P Radha MICHELLE eval [] [] On CPAP / Obtain settings Hematology [] [] Hypercoagulation panel Toxicology [] [] Urine drug screen [] EtOH screen Addtional [] [] Hgb A1c INITIAL CONSULTATIONS CLEARANCE / MANAGEMENT Psychology [x] Dietitian [x] Cardiology [x] Pulmonary [x] Others [] []Heme/Onc []Psychiatry []Pain mgmt PSD [] Physician supervised diet: []None [x]3 mos []6 mos Preop diet [] Preop low calory diet: []None []1 wk [x]2 wks []Ext. FINAL PRE-OP TESTING RESULTS Labwork [x] [x]Pre-op CBC [x]BMP []Serum Nicotine / Cotinine EKG [x] CXR [x] POST-OP MEDICATIONS Ulcer Ppx [] Omeprazole 20 mg PO []QD []BID Gallstone Ppx [] Ursodiol 300 mg []BID DVT Ppx [] DVT prophylaxis per final preop visit estimated risk Estimated calculated risk: % Schedule final pre-operative office visit with surgeon, pre-operative education class, and pre-operative exercise class prior to date of surgery ATTESTATION I reviewed with the patient the details of the proposed operation. The risks benefits and options were discussed. Risks included but were not limited to bleeding, infection, damage to other surrounding organs, cardio-pulmonary complications related to anesthesia, conversion from laparoscopic to and open procedure, the need for reoperative or endoscopic therapy, the potential for prolonged mechanical ventilation, and . All questions were fully answered to the patient's satisfaction and they wish to proceed with surgical intervention. Patient with some reflux - will plan for EGD to evaluate stomach and decide on procedure. The face to face encounter was spent counseling the patient and discussing the risks,benefits and options of surgery as well as the perioperative care plan. The patient was seen and examined independently and relevant data including a full chart rreview was performed by myself. [facility] 01-25-2025 Note Initial New BCC surg ical patient Navigation & Financial Counseling Discussion Patient Communication: In office SURGEON: [] JANELLE [] AD [x] MP [] TB [] LM PROCEDURE: [] LRYGB [] LSG [] MARYLIN-S [] MARYLIN [] UNDECIDED [] REV: SPECIFY: Confirmed pt wants to continue with surgical program/plan [] YES [] NO (complete program withdrawal note/process) CO-MORBIDS: [] NONE [] DM []HTN [] MICHELLE []GERD [] OTH: PRIVATE PAY: [] NO []YES DATE OF INITIAL BENEFITS VERIFICATION: TRANSFER FU: [] YES [] NO PRIMARY INSURANCE: Payor: [employer] MEDICARE ADVANTAGE / Plan: [employer] MEDICARE / Product Type: Medicare HMO / BENEFIT ON PLAN: [] NO [] YES BENEFIT MAX: [] NO [] YES -- BENEFIT MAX: $ EMPLOYER: DIET AND EXERCISE (DE) REQUIREMENT PRIMARY [] NONE []3M [] 6M []9M [] Medicare 4 Months [] SPR (3M) []OTHER: SECONDARY INSURANCE: BENEFIT ON PLAN: [] NO [] YES BENEFIT MAX: [] NO [] YES -- BENEFIT MAX: $ AUTH REQUIRED FROM SECONDARY [] NO [] YES DIET AND EXERCISE REQUIREMENT SECONDARY [] NONE [x]3M [] 6M [] Medicare 4 months [] SPR (3M) []OTHER: ___ [x] Discussed with patient: Financial cost overview (document signed and pt given copy at new pt consult visit with surgeon), Initial appointments: Bariatric Nutrition Assessment (BNA) & Diet and Exercise (DE) Patient to look for yellow envelope in mail. This yellow envelope will contain orders for labs, testing and required clearances. Pt encouraged to complete early in program to prevent delays. Encourage blood work to be draw by 1st DE appointment. [x] Reviewed OOP cost, including: [x] Overview of inpatient admission benefits - estimated inpatient co-pays, deductibles and/or co-insurance - Estimated OOP costs form reviewed with patient, and copy given to patient at new pt visit. [x] Reviewed next steps with patient: 1) Scheduled at new pt surgeon visit: Director Of Event Sales (RD) for a Nutrition Assessment (BNA) and Pre-operative Diet and Exercise (DE) appointment #1. [x] Patient reminded to arrive 15 minutes early for check in. Late arrivals may need to be rescheduled. 2) Schedule: Diet and Exercise Apt #2 only scheduled after initial BNA and DE completed, 3) Behavioral Health apt scheduled after DE started. Reviewed rational and goal of Behavioral Health appointments. 4) [x] Reinforced need to cancel any WMI appointments 48 hours in advance. Cautioned NS/Same day cancellations may result in delay in program or program completion hold. Noted: DE series needs to be a monthly series or insurance company may require repeat of the entire series. 5) [x] Smoker/tobacco products including vaping: reviewed need for cessation before surgery clearance and life long abstinence after surgery for best outcomes. Patient navigation to surgery: [x] Explained to patient that average time from initial consult to date of surgery can be 6-8 months. - Process can take longer if there are cancelled appointments, delays in testing and/or additional clearances that needs to be completed. - Reviewed importance of patient active engagement in making and keeping appointments to keep the process moving. - Reinforced need to cancel appointments at least 48 hours in advance. Reviewed that instances of No Shows and Same Day Appointment Cancellations may result in program/surgery delay or hold. [x] Patient advised of importance of having voicemail and MyChart for office communications and lab/testing results before and after surgery. [facility] 01-25-2025 Telephone encounter Note Initial New [facility] surgical patient Navigation & Financial Counseling Discussion Patient Communication: In office SURGEON: [] JANELLE [] AD [x] MP [] TB [] LM PROCEDURE: [] LRYGB [] LSG [] MARYLIN-S [] MARYLIN [] UNDECIDED [] REV: SPECIFY: Confirmed pt wants to continue with surgical program/plan [] YES [] NO (complete program withdrawal note/process) CO-MORBIDS: [] NONE [] DM []HTN [] MICHELLE []GERD [] OTH: PRIVATE PAY: [] NO []YES DATE OF INITIAL BENEFITS VERIFICATION: TRANSFER FU: [] YES [] NO PRIMARY INSURANCE: Payor: [employer] MEDICARE ADVANTAGE / Plan: [employer] MEDICARE / Product Type: Medicare HMO / BENEFIT ON PLAN: [] NO [] YES BENEFIT MAX: [] NO [] YES -- BENEFIT MAX: $ EMPLOYER: DIET AND EXERCISE (DE) REQUIREMENT PRIMARY [] NONE []3M [] 6M []9M [] Medicare 4 Months [] SPR (3M) []OTHER: SECONDARY INSURANCE: BENEFIT ON PLAN: [] NO [] YES BENEFIT MAX: [] NO [] YES -- BENEFIT MAX: $ AUTH REQUIRED FROM SECONDARY [] NO [] YES DIET AND EXERCISE REQUIREMENT SECONDARY [] NONE [x]3M [] 6M [] Medicare 4 months [] SPR (3M) []OTHER: ___ [x] Discussed with patient: Financial cost overview (document signed and pt given copy at new pt consult visit with surgeon), Initial appointments: Bariatric Nutrition Assessment (BNA) & Diet and Exercise (DE) Patient to look for yellow envelope in mail. This yellow envelope will contain orders for labs, testing and required clearances. Pt encouraged to complete early in program to prevent delays. Encourage blood work to be draw by 1st DE appointment. [x] Reviewed OOP cost, including: [x] Overview of inpatient admission benefits - estimated inpatient co-pays, deductibles and/or co-insurance - Estimated OOP costs form reviewed with patient, and copy given to patient at new pt visit. [x] Reviewed next steps with patient: 1) Scheduled at new pt surgeon visit: Director Of Event Sales (RD) for a Nutrition Assessment (BNA) and Pre-operative Diet and Exercise (DE) appointment #1. [x] Patient reminded to arrive 15 minutes early for check in. Late arrivals may need to be rescheduled. 2) Schedule: Diet and Exercise Apt #2 only scheduled after initial BNA and DE completed, 3) Behavioral Health apt scheduled after DE started. Reviewed rational and goal of Behavioral Health appointments. 4) [x] Reinforced need to cancel any WMI appointments 48 hours in advance. Cautioned NS/Same day cancellations may result in delay in program or program completion hold. Noted: DE series needs to be a monthly series or insurance company may require repeat of the entire series. 5) [x] Smoker/tobacco products including vaping: reviewed need for cessation before surgery clearance and life long abstinence after surgery for best outcomes. Patient navigation to surgery: [x] Explained to patient that average time from initial consult to date of surgery can be 6-8 months. - Process can take longer if there are cancelled appointments, delays in testing and/or additional clearances that needs to be completed. - Reviewed importance of patient active engagement in making and keeping appointments to keep the process moving. - Reinforced need to cancel appointments at least 48 hours in advance. Reviewed that instances of No Shows and Same Day Appointment Cancellations may result in program/surgery delay or hold. [x] Patient advised of importance of having voicemail and MyChart for office communications and lab/testing results before and after surgery. [facility] 01-25-2025 History of Present illness Narrative BARIATRIC AND METABOLIC SURGERY [facility] INITIAL EVALUATION - HISTORY AND PHYSICAL 01/25/25 PATIENT: Jaime Oneill DATE OF : 1965 HISTORY OF PRESENT ILLNESS Chief Complaint: Morbid Obesity and associated comorbid conditions. Jaime Oneill is a 59 y.o. female with morbid obesity and associated comorbid conditions who [facility] for bariatric surgery. The patient stands Height: 5' 5 (165.1 cm) tall with a weight of Weight: 249 lb 9.6 oz (113 kg) , and has a BMI of Body mass index is 41.54 kg/m .. The patient has failed multiple attempts at non-surgical weight loss, and is now seeking surgical intervention to promote permanent and consistent weight loss. The patient suffers from multiple co-morbidities as a result of morbid obesity as outlined in the past medical history. The patient denies a history of myocardia infarction, deep vein thrombosis, pulmonary embolism, renal failure, hepatic failure, stroke, and seizure. She does not smoke, and does not drink alcohol. Review of Systems All other systems reviewed and are negative. PAST HISTORIES Past Medical History: Diagnosis Date Anxiety Back pain Depression GERD (gastroesophageal reflux disease) Morbid obesity, unspecified obesity type (HCC) 01/21/2025 Thyroid disease Past Surgical History: Procedure Laterality Date CHOLECYSTECTOMY 2005 HYSTERECTOMY 2007 partial Family History Problem Relation Name Age of Onset Obesity Mother Diabetes Mother High Blood Pressure Mother Obesity Father Diabetes Father High Blood Pressure Father Heart disease Father Stroke Father Heart disease Sister Obesity Sister Heart disease Brother High Blood Pressure Brother Social History Tobacco Use Smoking status: Former Average packs/day: 1 pack/day for 44.8 years (44.8 ttl pk-yrs) Types: Cigarettes Start date: 05/11/1977 Smokeless tobacco: Never Tobacco comments: Quit smoking: Taking Chantix Substance Use Topics Alcohol use: Never Patient's Medications New Prescriptions No medications on file Previous Medications B COMPLEX-C (SUPER B COMPLEX PO) Take 1 tablet by mouth daily. BIOTIN 5000 MCG CAPSULE Take 3 capsules by mouth daily. CALCIUM CARBONATE (CALCIUM 600 PO) Take 1 tablet by mouth daily. CHOLECALCIFEROL (VITAMIN D-3) 250 MCG (19652 UT) TABLET Take 10,000 Units by mouth daily. CITALOPRAM (CELEXA) 20 MG TABLET Take 20 mg by mouth daily. LEVOTHYROXINE (SYNTHROID, LEVOXYL) 125 MCG TABLET Take 125 mcg by mouth daily. MULTIPLE VITAMINS-MINERALS (CENTRUM SILVER ULTRA WOMENS PO) Take 1 tablet by mouth daily. PANTOPRAZOLE (PROTONIX) 40 MG EC TABLET Take 40 mg by mouth daily. UNABLE TO FIND Take 4 tablets by mouth daily. Med Name: Focus Factor Modified Medications No medications on file Discontinued Medications No medications on file No Known Allergies PHYSICAL EXAM BP 137/86 Pulse 84 Temp 36.4 C (97.5 F) Resp 16 Ht 5' 5 (1.651 m) Wt 249 lb 9.6 oz (113 kg) BMI 41.54 kg/m Physical Exam Vitals and nursing note reviewed. HENT: Head: Normocephalic. Mouth/Throat: Mouth: Mucous membranes are moist. Cardiovascular: Rate and Rhythm: Normal rate. Pulses: Normal pulses. Abdominal: Palpations: Abdomen is soft. Neurological: Mental Status: She is alert. LABORATORY STUDIES AND IMAGING Laboratory Studies: No results for input(s): NA, K, CL, CO2, BUN, CREATININE, GLUCOSE, CALCIUM in the last 72 hours. No results for input(s): WBC, RBC, HGB, HCT, MCV, MCH, MCHC, RDW, PLT, MPV in the last 72 hours. No results for input(s): ALKPHOS, ALT, AST, PROT, BILITOT, BILIDIR, LIPASE in the last 72 hours. No lab exists for component: LABALBU Imaging Studies: ASSESSMENT Based on today's evaluation, the patient is a candidate for not to make a decision regarding a weight loss procedure. She chose not to make a decision regarding a weight loss procedure. In anticipation of weight reductive surgery now or in the future, we spent a great deal of time discussing the risks and benefits of , including but not limited to injury to intra-abdominal organs, breakdown of the gastric staple line, the need for re-operative therapy, prolonged hospitalization, mechanical ventilation, and . We discussed the possibility of bleeding, the need for blood transfusions, blood clots, hospital-acquired and intra-abdominal infection, anastomotic stricture, and worsening GERD. And we discussed the need for post-operative visit compliance, behavior modifications and diet changes, protein and vitamin supplementation, as well as routine scheduled and dedicated exercise. We discussed the potential weight loss benefit of approximately 60-70% of her excess body weight at 12-18 months post-op, as well as the possibility of insufficient weight loss or weight gain after 2 years post-operative time. Upon completion of all required pre-operative testing we will submit for insurance pre-authorization. PLAN Encounter Diagnoses Name Primary? Morbid obesity, unspecified obesity type (HCC) Gastroesophageal reflux disease without esophagitis Morbid obesity with BMI of 40.0-44.9, adult (HCC) Hypothyroidism, unspecified type I have recommended proceeding with the evaluation and work-up for the primary procedure as outlined below: PATIENT SUMMARY Jaime GOODE 59 y.o. female with Body mass index is 41.54 kg/m . not to make a decision regarding a weight loss procedure Procedure DM[] HTN[] MICHELLE[] GERD[x] HL[] OA[] TOB[] Date of Surgery: TBD NOTES MP PCP: INITIAL TESTING RESULTS Labwork [x] CMP, TSH, Fasting Lipid Profile, Mg, Zinc, Vit B1 (whole blood), Vit B12, 25-OH Vit D, Fe, Ferritin, Folate Tobacco [] Serum Nicotine / Cotinine [] Negative [] Positive EGD [x] Dx: [x] GERD [] Dyspepsia [] Other Pathology [x] H. pylori [] Negative [] Positive UGI [x] [] not ordered if patient is planning on Diana En Y US Abdomen [x] [] not ordered if S/P Radha MICHELLE eval [] [] On CPAP / Obtain settings Hematology [] [] Hypercoagulation panel Toxicology [] [] Urine drug screen [] EtOH screen Addtional [] [] Hgb A1c INITIAL CONSULTATIONS CLEARANCE / MANAGEMENT Psychology [x] Dietitibrielle [x] Cardiology [x] Pulmonary [x] Others [] []Heme/Onc []Psychiatry []Pain mgmt PSD [] Physician supervised diet: []None [x]3 mos []6 mos Preop diet [] Preop low calory diet: []None []1 wk [x]2 wks []Ext. FINAL PRE-OP TESTING RESULTS Labwork [x] [x]Pre-op CBC [x]BMP []Serum Nicotine / Cotinine EKG [x] CXR [x] POST-OP MEDICATIONS Ulcer Ppx [] Omeprazole 20 mg PO []QD []BID Gallstone Ppx [] Ursodiol 300 mg []BID DVT Ppx [] DVT prophylaxis per final preop visit estimated risk Estimated calculated risk: % Schedule final pre-operative office visit with surgeon, pre-operative education class, and pre-operative exercise class prior to date of surgery ATTESTATION I reviewed with the patient the details of the proposed operation. The risks benefits and options were discussed. Risks included but were not limited to bleeding, infection, damage to other surrounding organs, cardio-pulmonary complications related to anesthesia, conversion from laparoscopic to and open procedure, the need for reoperative or endoscopic therapy, the potential for prolonged mechanical ventilation, and . All questions were fully answered to the patient's satisfaction and they wish to proceed with surgical intervention. Patient with some reflux - will plan for EGD to evaluate stomach and decide on procedure. The face to face encounter was spent counseling the patient and discussing the risks,benefits and options of surgery as well as the perioperative care plan. The patient was seen and examined independently and relevant data including a full chart rreview was performed by myself. HIMANSHU Chery FACS Director - Minimally Invasive Surgery ---[facility]--- Patient Care Team: Kell Loza MD as PCP - General (Geriatric Medicine) documented in this encounter [facility] 01-25-2025 History of Present illness Narrative BARIATRIC AND METABOLIC SURGERY [facility] INITIAL EVALUATION - HISTORY AND PHYSICAL 01/25/25 PATIENT: Jaime Oneill DATE OF : 1965 HISTORY OF PRESENT ILLNESS Chief Complaint: Morbid Obesity and associated comorbid conditions. Jaime Oneill is a 59 y.o. female with morbid obesity and associated comorbid conditions who [facility] for bariatric surgery. The patient stands Height: 5' 5 (165.1 cm) tall with a weight of Weight: 249 lb 9.6 oz (113 kg) , and has a BMI of Body mass index is 41.54 kg/m .. The patient has failed multiple attempts at non-surgical weight loss, and is now seeking surgical intervention to promote permanent and consistent weight loss. The patient suffers from multiple co-morbidities as a result of morbid obesity as outlined in the past medical history. The patient denies a history of myocardia infarction, deep vein thrombosis, pulmonary embolism, renal failure, hepatic failure, stroke, and seizure. She does not smoke, and does not drink alcohol. Review of Systems All other systems reviewed and are negative. PAST HISTORIES Past Medical History: Diagnosis Date Anxiety Back pain Depression GERD (gastroesophageal reflux disease) Morbid obesity, unspecified obesity type (HCC) 01/21/2025 Thyroid disease Past Surgical History: Procedure Laterality Date CHOLECYSTECTOMY 2005 HYSTERECTOMY 2006 partial Family History Problem Relation Name Age of Onset Obesity Mother Diabetes Mother High Blood Pressure Mother Obesity Father Diabetes Father High Blood Pressure Father Heart disease Father Stroke Father Heart disease Sister Obesity Sister Heart disease Brother High Blood Pressure Brother Social History Tobacco Use Smoking status: Former Average packs/day: 1 pack/day for 44.8 years (44.8 ttl pk-yrs) Types: Cigarettes Start date: 05/11/1977 Smokeless tobacco: Never Tobacco comments: Quit smoking: Taking Chantix Substance Use Topics Alcohol use: Never Patient's Medications New Prescriptions No medications on file Previous Medications B COMPLEX-C (SUPER B COMPLEX PO) Take 1 tablet by mouth daily. BIOTIN 5000 MCG CAPSULE Take 3 capsules by mouth daily. CALCIUM CARBONATE (CALCIUM 600 PO) Take 1 tablet by mouth daily. CHOLECALCIFEROL (VITAMIN D-3) 250 MCG (97228 UT) TABLET Take 10,000 Units by mouth daily. CITALOPRAM (CELEXA) 20 MG TABLET Take 20 mg by mouth daily. LEVOTHYROXINE (SYNTHROID, LEVOXYL) 125 MCG TABLET Take 125 mcg by mouth daily. MULTIPLE VITAMINS-MINERALS (CENTRUM SILVER ULTRA WOMENS PO) Take 1 tablet by mouth daily. PANTOPRAZOLE (PROTONIX) 40 MG EC TABLET Take 40 mg by mouth daily. UNABLE TO FIND Take 4 tablets by mouth daily. Med Name: Focus Factor Modified Medications No medications on file Discontinued Medications No medications on file No Known Allergies PHYSICAL EXAM BP 137/86 Pulse 84 Temp 36.4 C (97.5 F) Resp 16 Ht 5' 5 (1.651 m) Wt 249 lb 9.6 oz (113 kg) BMI 41.54 kg/m Physical Exam Vitals and nursing note reviewed. HENT: Head: Normocephalic. Mouth/Throat: Mouth: Mucous membranes are moist. Cardiovascular: Rate and Rhythm: Normal rate. Pulses: Normal pulses. Abdominal: Palpations: Abdomen is soft. Neurological: Mental Status: She is alert. LABORATORY STUDIES AND IMAGING Laboratory Studies: No results for input(s): NA, K, CL, CO2, BUN, CREATININE, GLUCOSE, CALCIUM in the last 72 hours. No results for input(s): WBC, RBC, HGB, HCT, MCV, MCH, MCHC, RDW, PLT, MPV in the last 72 hours. No results for input(s): ALKPHOS, ALT, AST, PROT, BILITOT, BILIDIR, LIPASE in the last 72 hours. No lab exists for component: LABALBU Imaging Studies: ASSESSMENT Based on today's evaluation, the patient is a candidate for not to make a decision regarding a weight loss procedure. She chose not to make a decision regarding a weight loss procedure. In anticipation of weight reductive surgery now or in the future, we spent a great deal of time discussing the risks and benefits of , including but not limited to injury to intra-abdominal organs, breakdown of the gastric staple line, the need for re-operative therapy, prolonged hospitalization, mechanical ventilation, and . We discussed the possibility of bleeding, the need for blood transfusions, blood clots, hospital-acquired and intra-abdominal infection, anastomotic stricture, and worsening GERD. And we discussed the need for post-operative visit compliance, behavior modifications and diet changes, protein and vitamin supplementation, as well as routine scheduled and dedicated exercise. We discussed the potential weight loss benefit of approximately 60-70% of her excess body weight at 12-18 months post-op, as well as the possibility of insufficient weight loss or weight gain after 2 years post-operative time. Upon completion of all required pre-operative testing we will submit for insurance pre-authorization. PLAN Encounter Diagnoses Name Primary? Morbid obesity, unspecified obesity type (HCC) Gastroesophageal reflux disease without esophagitis Morbid obesity with BMI of 40.0-44.9, adult (HCC) Hypothyroidism, unspecified type I have recommended proceeding with the evaluation and work-up for the primary procedure as outlined below: PATIENT SUMMARY Jaime GOODE 59 y.o. female with Body mass index is 41.54 kg/m . not to make a decision regarding a weight loss procedure Procedure DM[] HTN[] MICHELLE[] GERD[x] HL[] OA[] TOB[] Date of Surgery: TBD NOTES MP PCP: INITIAL TESTING RESULTS Labwork [x] CMP, TSH, Fasting Lipid Profile, Mg, Zinc, Vit B1 (whole blood), Vit B12, 25-OH Vit D, Fe, Ferritin, Folate Tobacco [] Serum Nicotine / Cotinine [] Negative [] Positive EGD [x] Dx: [x] GERD [] Dyspepsia [] Other Pathology [x] H. pylori [] Negative [] Positive UGI [x] [] not ordered if patient is planning on Diana En Y US Abdomen [x] [] not ordered if S/P Radha MICHELLE eval [] [] On CPAP / Obtain settings Hematology [] [] Hypercoagulation panel Toxicology [] [] Urine drug screen [] EtOH screen Addtional [] [] Hgb A1c INITIAL CONSULTATIONS CLEARANCE / MANAGEMENT Psychology [x] Dr. Matos [x] Cardiology [x] Pulmonary [x] Others [] []Heme/Onc []Psychiatry []Pain mgmt PSD [] Physician supervised diet: []None [x]3 mos []6 mos Preop diet [] Preop low calory diet: []None []1 wk [x]2 wks []Ext. FINAL PRE-OP TESTING RESULTS Labwork [x] [x]Pre-op CBC [x]BMP []Serum Nicotine / Cotinine EKG [x] CXR [x] POST-OP MEDICATIONS Ulcer Ppx [] Omeprazole 20 mg PO []QD []BID Gallstone Ppx [] Ursodiol 300 mg []BID DVT Ppx [] DVT prophylaxis per final preop visit estimated risk Estimated calculated risk: % Schedule final pre-operative office visit with surgeon, pre-operative education class, and pre-operative exercise class prior to date of surgery ATTESTATION I reviewed with the patient the details of the proposed operation. The risks benefits and options were discussed. Risks included but were not limited to bleeding, infection, damage to other surrounding organs, cardio-pulmonary complications related to anesthesia, conversion from laparoscopic to and open procedure, the need for reoperative or endoscopic therapy, the potential for prolonged mechanical ventilation, and . All questions were fully answered to the patient's satisfaction and they wish to proceed with surgical intervention. Patient with some reflux - will plan for EGD to evaluate stomach and decide on procedure. The face to face encounter was spent counseling the patient and discussing the risks,benefits and options of surgery as well as the perioperative care plan. The patient was seen and examined independently and relevant data including a full chart rreview was performed by myself. HIMANSHU Chery FACS Director - Minimally Invasive Surgery ---[facility]--- Patient Care Team: Kell Loza MD as PCP - General (Geriatric Medicine) documented in this encounter [facility] 01-25-2025 History of Present illness Narrative BARIATRIC AND METABOLIC SURGERY [facility] INITIAL EVALUATION - HISTORY AND PHYSICAL 01/25/25 PATIENT: Jaime Oneill DATE OF : 1965 HISTORY OF PRESENT ILLNESS Chief Complaint: Morbid Obesity and associated comorbid conditions. Jaime Oneill is a 59 y.o. female with morbid obesity and associated comorbid conditions who [facility] for bariatric surgery. The patient stands Height: 5' 5 (165.1 cm) tall with a weight of Weight: 249 lb 9.6 oz (113 kg) , and has a BMI of Body mass index is 41.54 kg/m .. The patient has failed multiple attempts at non-surgical weight loss, and is now seeking surgical intervention to promote permanent and consistent weight loss. The patient suffers from multiple co-morbidities as a result of morbid obesity as outlined in the past medical history. The patient denies a history of myocardia infarction, deep vein thrombosis, pulmonary embolism, renal failure, hepatic failure, stroke, and seizure. She does not smoke, and does not drink alcohol. Review of Systems All other systems reviewed and are negative. PAST HISTORIES Past Medical History: Diagnosis Date Anxiety Back pain Depression GERD (gastroesophageal reflux disease) Morbid obesity, unspecified obesity type (HCC) 01/21/2025 Thyroid disease Past Surgical History: Procedure Laterality Date CHOLECYSTECTOMY 2005 HYSTERECTOMY 2006 partial Family History Problem Relation Name Age of Onset Obesity Mother Diabetes Mother High Blood Pressure Mother Obesity Father Diabetes Father High Blood Pressure Father Heart disease Father Stroke Father Heart disease Sister Obesity Sister Heart disease Brother High Blood Pressure Brother Social History Tobacco Use Smoking status: Former Average packs/day: 1 pack/day for 44.8 years (44.8 ttl pk-yrs) Types: Cigarettes Start date: 05/11/1977 Smokeless tobacco: Never Tobacco comments: Quit smoking: Taking Chantix Substance Use Topics Alcohol use: Never Patient's Medications New Prescriptions No medications on file Previous Medications B COMPLEX-C (SUPER B COMPLEX PO) Take 1 tablet by mouth daily. BIOTIN 5000 MCG CAPSULE Take 3 capsules by mouth daily. CALCIUM CARBONATE (CALCIUM 600 PO) Take 1 tablet by mouth daily. CHOLECALCIFEROL (VITAMIN D-3) 250 MCG (92838 UT) TABLET Take 10,000 Units by mouth daily. CITALOPRAM (CELEXA) 20 MG TABLET Take 20 mg by mouth daily. LEVOTHYROXINE (SYNTHROID, LEVOXYL) 125 MCG TABLET Take 125 mcg by mouth daily. MULTIPLE VITAMINS-MINERALS (CENTRUM SILVER ULTRA WOMENS PO) Take 1 tablet by mouth daily. PANTOPRAZOLE (PROTONIX) 40 MG EC TABLET Take 40 mg by mouth daily. UNABLE TO FIND Take 4 tablets by mouth daily. Med Name: Focus Factor Modified Medications No medications on file Discontinued Medications No medications on file No Known Allergies PHYSICAL EXAM BP 137/86 Pulse 84 Temp 36.4 C (97.5 F) Resp 16 Ht 5' 5 (1.651 m) Wt 249 lb 9.6 oz (113 kg) BMI 41.54 kg/m Physical Exam Vitals and nursing note reviewed. HENT: Head: Normocephalic. Mouth/Throat: Mouth: Mucous membranes are moist. Cardiovascular: Rate and Rhythm: Normal rate. Pulses: Normal pulses. Abdominal: Palpations: Abdomen is soft. Neurological: Mental Status: She is alert. LABORATORY STUDIES AND IMAGING Laboratory Studies: No results for input(s): NA, K, CL, CO2, BUN, CREATININE, GLUCOSE, CALCIUM in the last 72 hours. No results for input(s): WBC, RBC, HGB, HCT, MCV, MCH, MCHC, RDW, PLT, MPV in the last 72 hours. No results for input(s): ALKPHOS, ALT, AST, PROT, BILITOT, BILIDIR, LIPASE in the last 72 hours. No lab exists for component: LABALBU Imaging Studies: ASSESSMENT Based on today's evaluation, the patient is a candidate for not to make a decision regarding a weight loss procedure. She chose not to make a decision regarding a weight loss procedure. In anticipation of weight reductive surgery now or in the future, we spent a great deal of time discussing the risks and benefits of , including but not limited to injury to intra-abdominal organs, breakdown of the gastric staple line, the need for re-operative therapy, prolonged hospitalization, mechanical ventilation, and . We discussed the possibility of bleeding, the need for blood transfusions, blood clots, hospital-acquired and intra-abdominal infection, anastomotic stricture, and worsening GERD. And we discussed the need for post-operative visit compliance, behavior modifications and diet changes, protein and vitamin supplementation, as well as routine scheduled and dedicated exercise. We discussed the potential weight loss benefit of approximately 60-70% of her excess body weight at 12-18 months post-op, as well as the possibility of insufficient weight loss or weight gain after 2 years post-operative time. Upon completion of all required pre-operative testing we will submit for insurance pre-authorization. PLAN Encounter Diagnoses Name Primary? Morbid obesity, unspecified obesity type (HCC) Gastroesophageal reflux disease without esophagitis Morbid obesity with BMI of 40.0-44.9, adult (HCC) Hypothyroidism, unspecified type I have recommended proceeding with the evaluation and work-up for the primary procedure as outlined below: PATIENT SUMMARY Jaime GOODE 59 y.o. female with Body mass index is 41.54 kg/m . not to make a decision regarding a weight loss procedure Procedure DM[] HTN[] MICHELLE[] GERD[x] HL[] OA[] TOB[] Date of Surgery: TBD NOTES MP PCP: INITIAL TESTING RESULTS Labwork [x] CMP, TSH, Fasting Lipid Profile, Mg, Zinc, Vit B1 (whole blood), Vit B12, 25-OH Vit D, Fe, Ferritin, Folate Tobacco [] Serum Nicotine / Cotinine [] Negative [] Positive EGD [x] Dx: [x] GERD [] Dyspepsia [] Other Pathology [x] H. pylori [] Negative [] Positive UGI [x] [] not ordered if patient is planning on Diana En Y US Abdomen [x] [] not ordered if S/P Radha MICHELLE eval [] [] On CPAP / Obtain settings Hematology [] [] Hypercoagulation panel Toxicology [] [] Urine drug screen [] EtOH screen Addtional [] [] Hgb A1c INITIAL CONSULTATIONS CLEARANCE / MANAGEMENT Psychology [x] Dr. Fontanezitibrielle [x] Cardiology [x] Pulmonary [x] Others [] []Heme/Onc []Psychiatry []Pain mgmt PSD [] Physician supervised diet: []None [x]3 mos []6 mos Preop diet [] Preop low calory diet: []None []1 wk [x]2 wks []Ext. FINAL PRE-OP TESTING RESULTS Labwork [x] [x]Pre-op CBC [x]BMP []Serum Nicotine / Cotinine EKG [x] CXR [x] POST-OP MEDICATIONS Ulcer Ppx [] Omeprazole 20 mg PO []QD []BID Gallstone Ppx [] Ursodiol 300 mg []BID DVT Ppx [] DVT prophylaxis per final preop visit estimated risk Estimated calculated risk: % Schedule final pre-operative office visit with surgeon, pre-operative education class, and pre-operative exercise class prior to date of surgery ATTESTATION I reviewed with the patient the details of the proposed operation. The risks benefits and options were discussed. Risks included but were not limited to bleeding, infection, damage to other surrounding organs, cardio-pulmonary complications related to anesthesia, conversion from laparoscopic to and open procedure, the need for reoperative or endoscopic therapy, the potential for prolonged mechanical ventilation, and . All questions were fully answered to the patient's satisfaction and they wish to proceed with surgical intervention. Patient with some reflux - will plan for EGD to evaluate stomach and decide on procedure. The face to face encounter was spent counseling the patient and discussing the risks,benefits and options of surgery as well as the perioperative care plan. The patient was seen and examined independently and relevant data including a full chart rreview was performed by myself. HIMANSHU Chery FACS Director - Minimally Invasive Surgery ---[facility]--- Patient Care Team: Kell Loza MD as PCP - General (Geriatric Medicine) documented in this encounter [facility] 01-25-2025 Note BARIATRIC AND METABO LIC SURGERY [facility] INITIAL EVALUATION - HISTORY AND PHYSICAL 01/25/25 PATIENT: Jaime Oneill DATE OF : 1965 ----- HISTORY OF PRESENT ILLNESS Chief Complaint: Morbid Obesity and associated comorbid conditions. Jaime Oneill is a 59 y.o. female with morbid obesity and associated comorbid conditions who [facility] for bariatric surgery. The patient stands Height: 5' 5 (165.1 cm) tall with a weight of Weight: 249 lb 9.6 oz (113 kg) , and has a BMI of Body mass index is 41.54 kg/m?.. The patient has failed multiple attempts at non-surgical weight loss, and is now seeking surgical intervention to promote permanent and consistent weight loss. The patient suffers from multiple co-morbidities as a result of morbid obesity as outlined in the past medical history. The patient denies a history of myocardia infarction, deep vein thrombosis, pulmonary embolism, renal failure, hepatic failure, stroke, and seizure. She does not smoke, and does not drink alcohol. Review of Systems All other systems reviewed and are negative. PAST HISTORIES Past Medical History: Diagnosis Date Anxiety Back pain Depression GERD (gastroesophageal reflux disease) Morbid obesity, unspecified obesity type (HCC) 01/21/2025 Thyroid disease Past Surgical History: Procedure Laterality Date CHOLECYSTECTOMY 2004 HYSTERECTOMY 2006 partial Family History Problem Relation Name Age of Onset Obesity Mother Diabetes Mother High Blood Pressure Mother Obesity Father Diabetes Father High Blood Pressure Father Heart disease Father Stroke Father Heart disease Sister Obesity Sister Heart disease Brother High Blood Pressure Brother Social History Tobacco Use Smoking status: Former Average packs/day: 1 pack/day for 44.8 years (44.8 ttl pk-yrs) Types: Cigarettes Start date: 05/11/1977 Smokeless tobacco: Never Tobacco comments: Quit smoking: Taking Chantix Substance Use Topics Alcohol use: Never Patient's Medications New Prescriptions No medications on file Previous Medications B COMPLEX-C (SUPER B COMPLEX PO) Take 1 tablet by mouth daily. BIOTIN 5000 MCG CAPSULE Take 3 capsules by mouth daily. CALCIUM CARBONATE (CALCIUM 600 PO) Take 1 tablet by mouth daily. CHOLECALCIFEROL (VITAMIN D-3) 250 MCG (55456 UT) TABLET Take 10,000 Units by mouth daily. CITALOPRAM (CELEXA) 20 MG TABLET Take 20 mg by mouth daily. LEVOTHYROXINE (SYNTHROID, LEVOXYL) 125 MCG TABLET Take 125 mcg by mouth daily. MULTIPLE VITAMINS-MINERALS (CENTRUM SILVER ULTRA WOMENS PO) Take 1 tablet by mouth daily. PANTOPRAZOLE (PROTONIX) 40 MG EC TABLET Take 40 mg by mouth daily. UNABLE TO FIND Take 4 tablets by mouth daily. Med Name: Focus Factor Modified Medications No medications on file Discontinued Medications No medications on file No Known Allergies PHYSICAL EXAM BP 137/86 Pulse 84 Temp 36.4 ?C (97.5 ?F) Resp 16 Ht 5' 5 (1.651 m) Wt 249 lb 9.6 oz (113 kg) BMI 41.54 kg/m? Physical Exam Vitals and nursing note reviewed. HENT: Head: Normocephalic. Mouth/Throat: Mouth: Mucous membranes are moist. Cardiovascular: Rate and Rhythm: Normal rate. Pulses: Normal pulses. Abdominal: Palpations: Abdomen is soft. Neurological: Mental Status: She is alert. LABORATORY STUDIES AND IMAGING Laboratory Studies: No results for input(s): NA, K, CL, CO2, BUN, CREATININE, GLUCOSE, CALCIUM in the last 72 hours. No results for input(s): WBC, RBC, HGB, HCT, MCV, MCH, MCHC, RDW, PLT, MPV in the last 72 hours. No results for input(s): ALKPHOS, ALT, AST, PROT, BILITOT, BILIDIR, LIPASE in the last 72 hours. No lab exists for component: LABALBU Imaging Studies: ASSESSMENT Based on today's evaluation, the patient is a candidate for not to make a decision regarding a weight loss procedure. She chose not to make a decision regarding a weight loss procedure. In anticipation of weight reductive surgery now or in the future, we spent a great deal of time discussing the risks and benefits of , including but not limited to injury to intra-abdominal organs, breakdown of the gastric staple line, the need for re-operative therapy, prolonged hospitalization, mechanical ventilation, and . We discussed the possibility of bleeding, the need for blood transfusions, blood clots, hospital-acquired and intra-abdominal infection, anastomotic stricture, and worsening GERD. And we discussed the need for post-operative visit compliance, behavior modifications and diet changes, protein and vitamin supplementation, as well as routine scheduled and dedicated exercise. We discussed the potential weight loss benefit of approximately 60-70% of her ex (more content not included)... [facility] 07-28-2024 History of Present illness Narrative Subjective Patient ID: Jaime Oneill is a 58 y.o. female who presents for No chief complaint on file.. HPI NSMWL 4 START WT:256 IDEAL WT: 149 START EXCESS: 107 HT: 64.75 IN. Review of Systems CONSTITUTIONAL: Chills No. Fatigue No. Fever No. CARDIOLOGY: Negative for dizziness, chest pain, palpitations, shortness of breath. RESPIRATORY: Sleep Apnea No. Negative for chest congestion, cough, wheezing. GASTROENTEROLOGY: Food Intolerance No. Abdominal pain No. Acid reflux yes. Black stools No. Constipation No. Diarrhea No. Loss of appetite no. Nausea No. Vomiting No. UROLOGY: Negative for dysuria, urinary urgency, kidney stones. PSYCHOLOGY: admits to depression, anxiety,admits to high stress level (sometimes) Objective Physical Exam Assessment/Plan Luzma Patton LPN 07/20/24 1:38 PM Subjective Patient ID: Jaime Oneill is a 58 y.o. female who presents for No chief complaint on file.. HPI With patient's permission, this is a Telemedicine visit with video and audio. Jaime was unable to hear me through our virtual visit, so I called her on the telephone to complete the visit. Jamie is following up today for NSMWL. She self reports a weight of 241, which is a 5 pound weight loss since she was last in the office in February. She tells me that her PCP put her on Ozempic for weight loss and medication for depression. She tells me that he gave her samples for the Ozempic, enough for 6 weeks. [place] She is not going to the gym as often, but is doing yard/outside work with her which is very manual. Objective Physical Exam Constitutional: Appearance: Normal appearance. HENT: Head: Normocephalic. Eyes: Pupils: Pupils are equal, round, and reactive to light. Pulmonary: Effort: Pulmonary effort is normal. Neurological: Mental Status: She is alert and oriented to person, place, and time. Psychiatric: Mood and Affect: Mood normal. Behavior: Behavior normal. Assessment/Plan Problem List Items Addressed This Visit ICD-10-CM GERD (gastroesophageal reflux disease) - Primary K21.9 Severe obesity (BMI >= 40) (Multi) E66.01 I recommended that she do not take metformin and Ozempic together, but she tells me her PCP tells her it is ok. I encouraged Jaime to start follow up with her PCP. We discussed that she can call the office to schedule follow up with our office as needed. REBEKAH Soto 07/28/24 11:06 AM documented in this encounter [facility] Work Phone: 02-19-2024 History of Present illness Narrative Subjective Patient ID: Jaime Oneill is a 58 y.o. female who presents for No chief complaint on file.. HPI NSMWL FUV START WT:256 IDEAL WT: 149 START EXCESS: 107 TOTAL WT LOSS: 10 EWL: 9% HT: 64.75 IN. ADMITS TO EXCESSIVE THIRST Review of Systems CONSTITUTIONAL: Chills No. Fatigue No. Fever No. CARDIOLOGY: Negative for dizziness, chest pain, palpitations, shortness of breath. RESPIRATORY: Sleep Apnea NEVER TESTED, SNORING, HAS HEADACHES. Negative for chest congestion, cough, wheezing. GASTROENTEROLOGY: Food Intolerance No. Abdominal pain No. Acid reflux YES Black stools No. Constipation No. Diarrhea No. Loss of appetite no. Nausea No. Vomiting No. UROLOGY: Negative for dysuria, urinary urgency, kidney stones. PSYCHOLOGY: Negative for depression, anxiety, high stress level. Objective Physical Exam Assessment/Plan Luzma Patton LPN 02/12/24 8:58 AM Subjective Patient ID: Jaime Oneill is a 58 y.o. female who presents for Follow-up ([facility]). KENTON Tony is here today for [facility] follow up. She has gained 1 pound since Nov. She tells me that she has had an increase in stress lately. Which has casused her to stress eat. She tells me that she thought she was doing well. She knows she hasn't been eating what she should have been, but thinks she has been doing better than she has been doing in the past. She started going back to old habits. She is exercising 3 days per week. She is walking on the treadmill for about 10 min. Objective Physical Exam Constitutional: Appearance: Normal appearance. Eyes: Pupils: Pupils are equal, round, and reactive to light. Cardiovascular: Rate and Rhythm: Normal rate. Pulmonary: Effort: Pulmonary effort is normal. Abdominal: Palpations: Abdomen is soft. Musculoskeletal: General: Normal range of motion. Skin: General: Skin is warm and dry. Neurological: General: No focal deficit present. Mental Status: She is alert and oriented to person, place, and time. Psychiatric: Mood and Affect: Mood normal. Assessment/Plan Problem List Items Addressed This Visit ICD-10-CM GERD (gastroesophageal reflux disease) - Primary K21.9 Severe obesity (BMI >= 40) (CMS/[facility]) E66.01 Relevant Medications metFORMIN (Glucophage) 1,000 mg tablet Jaime and I discussed finding an outlet for her stress. She is not open to therapy at this time. We discussed the possibility of using Wellbutrin to help with both her mood and weight loss. She tells me that she would like time to think about it. She will call the office if she decides she would like to try it. We discussed increasing her metformin to help with her cravings at night. She is agreeable to that. We will meet virtually next month to make sure she is tolerating the side effects of the medication. We also discussed adding a MVI. REBEKAH Soto 02/19/24 11:12 AM documented in this encounter [facility] Work Phone: 10-15-2023 History of Present illness Narrative NSMWL 3 START WT: 256 IDEAL WT: 149 START EXCESS: 107TOTAL WT LOSS: 9 EWL: 8 % HT: 64.75 INCHES CONSTITUTIONAL: Chills No. Fatigue No. Fever No. CARDIOLOGY: Negative for dizziness, chest pain, palpitations, shortness of breath. RESPIRATORY: Sleep Apnea No. Negative for chest congestion, cough, wheezing. GASTROENTEROLOGY: Food Intolerance No. Abdominal pain No. Acid reflux No. Black stools No. Constipation No. Diarrhea No. Loss of appetite no. Nausea No. Vomiting No. UROLOGY: Negative for dysuria, urinary urgency, kidney stones. PSYCHOLOGY: Negative for depression, anxiety, high stress level. Subjective Patient ID: Jaime Oneill is a 57 y.o. male who presents for Follow-up (Nswl 3`). KENTON Tony is following up today for NSWL. She has lost 4 pounds since her last appointment. She has been counting her calories. She usually tracking between 7971-4480 calories per day. She tells me that some days she feels very bloated after times she eats out. She tells me that she is having some problems with feeling constipated. She went to the gym 3 days the past few weeks. She tells me that this week and next week she will only be able to go 2 times. Objective Physical Exam Constitutional: Appearance: Normal appearance. Eyes: Pupils: Pupils are equal, round, and reactive to light. Cardiovascular: Rate and Rhythm: Normal rate. Pulmonary: Effort: Pulmonary effort is normal. Abdominal: Palpations: Abdomen is soft. Musculoskeletal: General: Normal range of motion. Skin: General: Skin is warm and dry. Neurological: General: No focal deficit present. Mental Status: She is alert and oriented to person, place, and time. Psychiatric: Mood and Affect: Mood normal. Assessment/Plan Problem List Items Addressed This Visit ICD-10-CM Severe obesity (BMI >= 40) (CMS/[facility]) - Primary E66.01 Relevant Medications metFORMIN (Glucophage) 500 mg tablet We will increase Jaime's metformin to 1000mg BID. She will call the office if she develops side effects. I encouraged her to start taking Miralax to help with her constipation. documented in this encounter [facility] Work Phone: Evaluation + Plan note No data available for this section [facility] Evaluation note No assessment inform ation available [facility] Work Phone: Evaluation note Diagnosis Severe obesity (BMI >= 40) (CMS/HCC)- Primary documented in this encounter [facility] Work Phone: Evaluation note* Diagnosis Gastroesophageal reflux disease, unspecified whether esophagitis present- Primary Severe obesity (BMI >= 40) (CMS/HCC) documented in this encounter [facility] Work Phone: Evaluation note* Diagnosis Gastroesophageal reflux disease, unspecified whether esophagitis present- Primary Severe obesity (BMI >= 40) ([facility]) documented in this encounter [facility] Work Phone: Evaluation note* Diagnosis Morbid obesity, unspecified obesity type (HCC) Gastroesophageal reflux disease without esophagitis Esophageal reflux Morbid obesity with BMI of 40.0-44.9, adult (HCC) Hypothyroidism, unspecified type documented in this encounter [facility] note* Diagnosis Gastroesophageal reflux disease without esophagitis Esophageal reflux Morbid obesity with BMI of 40.0-44.9, adult (HCC) Hypothyroidism, unspecified type Pre-op testing Unspecified pre-operative examination [facility]* Diagnosis Morbid obesity, unspecified obesity type (HCC) Gastroesophageal reflux disease without esophagitis Esophageal reflux Morbid obesity with BMI of 40.0-44.9, adult (HCC) Hypothyroidism, unspecified type [facility]* Diagnosis Gastroesophageal reflux disease without esophagitis Esophageal reflux Morbid obesity with BMI of 40.0-44.9, adult (HCC) Hypothyroidism, unspecified type Pre-op testing Unspecified pre-operative examination [facility]* Diagnosis Gastroesophageal reflux disease without esophagitis Esophageal reflux Hypothyroidism, unspecified type Morbid obesity with BMI of 40.0-44.9, adult ([facility]) [facility]* Diagnosis Pre-op testing- Primary Unspecified pre-operative examination Gastroesophageal reflux disease without esophagitis Esophageal reflux Morbid obesity with BMI of 40.0-44.9, adult (HCC) Cigarette nicotine dependence in remission Gastro-esophageal reflux disease without esophagitis [facility]* Diagnosis Gastroesophageal reflux disease without esophagitis Esophageal reflux Morbid obesity with BMI of 40.0-44.9, adult (HCC) Hypothyroidism, unspecified type Pre-op testing Unspecified pre-operative examination Gastro-esophageal reflux disease without esophagitis documented [facility] encounter [facility]* Diagnosis Morbid obesity with BMI of 40.0-44.9, adult (HCC)- Primary documented in this encounter [facility]* Diagnosis Morbid obesity with BMI of 40.0-44.9, adult (HCC)- Primary [facility] encounter [facility]* Diagnosis Other disorder of eating Mild episode of recurrent major depressive disorder (HCC) Other specified anxiety disorders documented [facility] this encounter [facility]* Diagnosis Other disorder of eating Mild episode of recurrent major depressive disorder (HCC) Other specified anxiety disorders documented [facility] this encounter [facility]* Diagnosis Gastroesophageal reflux disease without esophagitis Esophageal reflux Hypothyroidism, unspecified type Morbid obesity with BMI of 40.0-44.9, adult (HCC) Gastro-esophageal reflux disease without esophagitis documented in this encounter [facility]* Diagnosis Gastroesophageal reflux disease without esophagitis Esophageal reflux Morbid obesity with BMI of 40.0-44.9, adult (HCC) Hypothyroidism, unspecified type Pre-op testing Unspecified pre-operative examination Gastro-esophageal reflux disease without esophagitis documented [facility] this encounter [facility]* Diagnosis Gastroesophageal reflux disease without esophagitis Esophageal reflux Morbid obesity with BMI of 40.0-44.9, adult (HCC) Hypothyroidism, unspecified type Pre-op testing Unspecified pre-operative examination Gastro-esophageal reflux disease without esophagitis documented [facility] this encounter [facility]* Diagnosis Other disorder of eating Mild episode of recurrent major depressive disorder (HCC) Other specified anxiety disorders Gastro-esophageal reflux disease without esophagitis documented in this encounter [facility] note* Diagnosis Gastro-esophageal reflux disease without esophagitis documented in this encounter [facility] note* Diagnosis Gastroesophageal reflux disease without esophagitis Esophageal reflux Morbid obesity with BMI of 40.0-44.9, adult (HCC) Hypothyroidism, unspecified type Pre-op testing Unspecified pre-operative examination documented in this encounter [facility] note* Diagnosis Morbid obesity with BMI of 40.0-44.9, adult (HCC)- Primary Gastroesophageal reflux disease without esophagitis Esophageal reflux documented in this encounter [facility] note* Diagnosis Pre-operative laboratory examination- Primary Pre-procedural laboratory examination Gastroesophageal reflux disease without esophagitis Esophageal reflux Morbid obesity with BMI of 40.0-44.9, adult (HCC) Hypothyroidism, unspecified type Pre-op testing Unspecified pre-operative examination documented in this encounter [facility] note* Diagnosis Pre-operative laboratory examination- Primary Pre-procedural laboratory examination Gastroesophageal reflux disease without esophagitis Esophageal reflux Morbid obesity with BMI of 40.0-44.9, adult (HCC) Hypothyroidism, unspecified type Pre-op testing Unspecified pre-operative examination documented in this encounter [facility] note* Diagnosis Morbid obesity with BMI of 40.0-44.9, adult (HCC)- Primary Obesity, morbid, BMI 40.0-49.9 (HCC)- Primary Morbid obesity with BMI of 40.0-44.9, adult (HCC) documented in this encounter [facility] note* Diagnosis Morbid obesity with BMI of 40.0-44.9, adult (HCC)- Primary Morbid obesity with BMI of 40.0-44.9, adult (HCC)- Primary Morbid obesity with BMI of 40.0-44.9, adult (HCC) documented in this encounter [facility] note* Diagnosis Morbid obesity with BMI of 40.0-44.9, adult (HCC)- Primary Morbid obesity with BMI of 40.0-44.9, adult (HCC)- Primary Gastroesophageal reflux disease without esophagitis Esophageal reflux Hypothyroidism, unspecified type Morbid obesity with BMI of 40.0-44.9, adult (HCC) documented in this encounter [facility] note* Diagnosis Deficiency of multiple nutrient elements- Primary Other nutritional deficiency Morbid obesity with BMI of 40.0-44.9, adult (HCC)- Primary Morbid obesity with BMI of 40.0-44.9, adult (HCC) [facility] Diagnosis Morbid obesity, unspecified obesity type (HCC) Gastroesophageal reflux disease without esophagitis Esophageal reflux Morbid obesity with BMI of 40.0-44.9, adult (HCC) Hypothyroidism, unspecified type H/O gastric bypass- Primary Deficiency of multiple nutrient elements Other nutritional deficiency Deficiency of other specified B group vitamins [facility] Diagnosis Morbid obesity with BMI of 40.0-44.9, adult (HCC)- Primary Obesity, morbid, BMI 40.0-49.9 (HCC) Morbid obesity with BMI of 40.0-44.9, adult (HCC) Postoperative pain Other acute postoperative pain Obesity, morbid, BMI 40.0-49.9 (HCC) H/O gastric bypass- Primary Deficiency of multiple nutrient elements Other nutritional deficiency Deficiency of other specified B group vitamins [facility] Diagnosis H/O gastric bypass- Primary Deficiency of multiple nutrient elements Other nutritional deficiency Deficiency of other specified B group vitamins Morbid obesity with BMI of 40.0-44.9, adult (HCC) Gastroesophageal reflux disease without esophagitis Esophageal reflux documented in this encounter [facility] Discharge instructions No data available for this section [facility]charge instructions* Attachments The following attachments cannot be sent through Care Everywhere. * Upper GI Endoscopy Discharge Instructions (Israeli) * Moderate Sedation in Adults Discharge Instructions (Israeli) [facility] No data available for this section [facility] Reason for referral (narrative)No reason for referral information availableWSum[facility] Work Phone: Reason for visit Narrative* Auth/Cert (Routine) Specialty Diagnoses / Procedures Referred By Contac t Referred To Contact Diagnoses Gastro-esophageal reflux disease without esophagitis Procedures OR EGD TRANSORAL BIOPSY SINGLE/MULTIPLE ESOPHAGOGASTRODUODENOSCOPY, WITH BIOPSY Jordon Santiago DO [address] [facility] [address] [place] [address] Phone: tel: fax: [facility] [address] [place] [phone] Phone: tel: Referral ID Status Reason Start Date Expiration Date Visits Re quested Visits Authorized [id number] 1 1 [facility] Narrative* Auth/Cert (Routine) Specialty Diagnoses / Procedures Referred By Anita t Referred To Contact Diagnoses Morbid obesity with BMI of 40.0-44.9, adult (HCC) Procedures OR LAPS GSTR RSTCV PX W/BYP DIANA-EN-Y LIMB <150 CM OR UNLISTED LAPAROSCOPIC PROCEDURE LIVER OR LAPS RPR PARAESPHGL HRNA INCL FUNDPLSTY W/O MESH LAPAROSCOPIC DIANA-EN-Y GASTRIC BYPASS LIVER BIOPSY HIATAL HERNIA REPAIR, POSSIBLE OPEN Jordon Santiago DO [address] [place] [address] Phone: tel: fax: [facility] MA[facility] OR [address] [place] [address] Phone: tel: Referral ID Status Reason Start Date Expiration Date Visits Re quested Visits Authorized [id number] 1 1 [facility] Summary Purpose Family History No Family History Records FoundNo Family History Records FoundNo Family History Records FoundNo Family History Records FoundNo Family History Records Found Advance Directives Advance Directive Response Recorded Date/ Time Living Will No January 20, 2018 4:00pm Power of Visual C Developer No January 20 4:00pm Advance Directive Response Recorded Date/ Time Living Will No January 20, 2018 4:00pm Do you have a [facility] Power of Visual C Developer? No January 20, 2018 4:00pm Date Activated Date Inactivated Comments 03/25/2025 2:29 PM 03/25/2025 5:02 PM Date Activated Date Inactivated Comments 03/25/2025 2:29 PM 03/25/2025 5:02 PM Date Activated Date Inactivated Comments 06/30/2025 5:43 AM Date Activated Date Inactivated Comments 03/25/2025 2:29 PM 03/25/2025 5:02 PM Date Activated Date Inactivated Comments 06/30/2025 5:43 AM 07/01/2025 5:18 PM Date Activated Date Inactivated Comments 03/25/2025 2:29 PM 03/25/2025 5:02 PM Date Activated Date Inactivated Comments 06/30/2025 5:43 AM 07/01/2025 5:18 PM Chief Complaint and Reason for Visit Chief Complaint Admit Date LOW BACK PAIN. RX HERE October 22 9:30am Chief Complaint Admit Date HEARTBURN, GERD, OBESITY, PREOP TESTING April 20, 2025 8:52am Additional Source Comments INFORMATION SOURCE (unrecogn ized section and content) DATE CREATED AUTHOR 05/02/2018 [facility] DATE CREATED AUTHOR AUTHOR'S ORGANIZ ATION 03/19/2023 [facility] ([place]) DATE CREATED AUTHOR AUTHOR'S ORGANIZ ATION 08/01/2024 [facility] DATE CREATED AUTHOR AUTHOR'S ORGANIZ ATION 07/07/2025 [facility] DATE CREATED AUTHOR AUTHOR'S ORGANIZ ATION 07/16/2025 [facility] Patient Care team informatio n (unrecognized section and content) Team Status: Active Member Role Status Dates Dr. Edilberto Loza MD Primary Care Provider Active Team Status: Inactive Member Role Status Dates Dr. Edilberto Loza MD Primary Care Provider Active Start: January 14, 2025 End: January 14, 2025 Dr. Edilberto Loza MD Attending Provider Active Start: January 14, 2025 End: January 14, 2025 Dr. Edilberto Loza MD Referring Provider Active Start: January 14, 2025 End: January 14, 2025 Team Status: Inactive Member Role Status Dates Dr. Edilberto Loza MD Primary Care Provider Active Start: January 15, 2025 End: January 15, 2025 Dr. Edilberto Loza MD Attending Provider Active Start: January 15, 2025 End: January 15, 2025 Dr. Edilberto Loza MD Referring Provider Active Start: January 15, 2025 End: January 15, 2025 Team Status: Active Member Role Status Dates Dr. Edilberto Loza MD Primary Care Provider Active Start: April 20, 2025 SRIRAM NORMAN Attending Provider Active Start: April 20, 2025 SRIRAM NORMAN Referring Provider Active Start: April 20, 2025 Team Status: Inactive Member Role Status Dates Dr. Edilberto Loza MD Primary Care Provider Active Start: April 30, 2025 End: April 30, 2025 Dr. Edilberto Loza MD Referring Provider Active Start: April 30, 2025 End: April 30, 2025 ASHLEY COLLADO Attending Provider Active S tart: April 30, 2025 End: April 30, 2025 Cryptozoologist Relationship Specialty Start Date End Date EDILBERTO-JOMAR LOZA [address] [facility] [place] [id number] Primary Care Provider 08/13/23 Dr. Kell Loza Primary Care Provider 10/15/23 Cryptozoologist Relationship Specialty Start Date End Date EDILBERTO-CHI DAGO [address] [facility] [place] [id number] Primary Care Provider 08/13/23 Dr. Kell Loza Primary Care Provider 10/15/23 Cryptozoologist Relationship Specialty Start Date End Date EDILBERTO-CHI DAGO [address] [facility] [place] [id number] Primary Care Provider 08/13/23 Dr. Kell Loza Primary Care Provider 10/15/23 Cryptozoologist Relationship Specialty Start Date End Date Kell Loza MD [address] [place] [phone] PCP - General Geriatric Medicine 01/19/25 Cryptozoologist Relationship Specialty Start Date End Date Kell Loza MD [address] [place] [address] [place] [phone] PCP - General Geriatric Medicine 01/19/25 Jordon Santiago DO [address] [place] [address] [address] [place], [place] [id number] Surgeon General Surgery 01/28/25 Cryptozoologist Relationship Specialty Start Date End Date Kell Loza MD [address] [place] [phone] PCP - General Geriatric Medicine 01/19/25 Jordon Santiago DO [address] [place] [address] [address] [place] [address] Surgeon General Surgery 01/28/25 Cryptozoologist Relationship Specialty Start Date End Date Kell Loza MD [address] [facility] [address] [place] [phone] PCP - General Geriatric Medicine 01/19/25 Jordon Santiago DO [address] [place] [address] [address] [place] [address] Surgeon General Surgery 01/28/25 Cryptozoologist Relationship Specialty Start Date End Date Kell Loza MD [address] [facility] [address] [place] [phone] PCP - General Geriatric Medicine 01/19/25 Jordon Santiago DO [address] [place] [address] [address] [place] [address] Surgeon General Surgery 01/28/25 Team Status: Active Member Role Status Dates Dr. Edilberto Loza MD Family Provider Active Dr. Edilberto Loza MD Primary Care Provider Active Team Status: Inactive Member Role Status Dates Dr. Edilberto Loza MD Primary Care Provider Active Start: October 01, 2024 End: October 01, 2024 Dr. Edilberto Loza MD Attending Provider Active Start: October 01, 2024 End: October 01, 2024 Team Status: Inactive Member Role Status Dates Dr. Edilberto oLza MD Primary Care Provider Active Start: October 22, 2024 End: October 22, 2024 Dr. Edilberto Loza MD Attending Provider Active Start: October 22, 2024 End: October 22, 2024 Dr. Edilberto Loza MD Referring Provider Active Start: October 22, 2024 End: October 22, 2024 Team Status: Active Member Role Status Dates Dr. Edilberto Loza MD Primary Care Provider Active Start: January 15, 2025 Dr. Edilberto Loza MD Attending Provider Active Start: January 15, 2025 Dr. Edilberto Loza MD Referring Provider Active Start: January 15, 2025 Cryptozoologist Relationship Specialty Start Date End Date Kell Loza MD [address] [place] [phone] PCP - General Geriatric Medicine 01/19/25 Jordon Santiago DO [address] [place], [place] [phone] Surgeon General Surgery 01/28/25 Cryptozoologist Relationship Specialty Start Date End Date Kell Loza MD [address] [place] [address] [place] [phone] PCP - General Geriatric Medicine 01/19/25 Jordon Santiago DO [address] [place], [place] [phone] Surgeon General Surgery 01/28/25 Cryptozoologist Relationship Specialty Start Date End Date Kell Loza MD [address] [place] [address] [place] [phone] PCP - General Geriatric Medicine 01/19/25 Jordon Santiago DO [address] [place], [place] [phone] Surgeon General Surgery 01/28/25 Cryptozoologist Relationship Specialty Start Date End Date Kell Loza MD [address] [place] [phone] PCP - General Geriatric Medicine 01/19/25 Jordon Santiago DO [address] [place], [place] [phone] Surgeon General Surgery 01/28/25 Cryptozoologist Relationship Specialty Start Date End Date Kell Loza MD [address] [place] [address] [place] [phone] PCP - General Geriatric Medicine 01/19/25 Jordon Santiago DO [address] [place], [place] [id number] Surgeon General Surgery 01/28/25 Cryptozoologist Relationship Specialty Start Date End Date Kell Loza MD [address] [place] [address] [place] [phone] PCP - General Geriatric Medicine 01/19/25 Jordon Santiago DO [address] [place], [place] [id number] Surgeon General Surgery 01/28/25 Cryptozoologist Relationship Specialty Start Date End Date Kell Loza MD [address] [place] [address] [place] [phone] PCP - General Geriatric Medicine 01/19/25 Jordon Santiago DO [address] [place], [place] [id number] Surgeon General Surgery 01/28/25 Cryptozoologist Relationship Specialty Start Date End Date Kell Loza MD [address] [place] [address] [place] [phone] PCP - General Geriatric Medicine 01/19/25 Jordon Santiago DO [address] [place], [place] [id number] Surgeon General Surgery 01/28/25 Cryptozoologist Relationship Specialty Start Date End Date Kell Loza MD [address] [place] [address] [place] [phone] PCP - General Geriatric Medicine 01/19/25 Jordon Santiago DO [address] [place], [place] [id number] Surgeon General Surgery 01/28/25 Cryptozoologist Relationship Specialty Start Date End Date Kell Loza MD [address] [place] [address] [place] [phone] PCP - General Geriatric Medicine 01/19/25 Jordon Santiago DO [address] [place], [place] [id number] Surgeon General Surgery 01/28/25 Cryptozoologist Relationship Specialty Start Date End Date Kell Loza MD [address] [place] [address] [place] [phone] PCP - General Geriatric Medicine 01/19/25 Jordon Santiago DO [address] [place], [place] [phone] Surgeon General Surgery 01/28/25 Cryptozoologist Relationship Specialty Start Date End Date Kell Loza MD [address] [place] [address] [place] [phone] PCP - General Geriatric Medicine 01/19/25 Jordon Santiago DO [address] [place] [address] Surgeon General Surgery 01/28/25 Cryptozoologist Relationship Specialty Start Date End Date Kell Loza MD [address] [place] [address] [place] [phone] PCP - General Geriatric Medicine 01/19/25 Jordon Santiago DO [address] [place] [address] Surgeon General Surgery 01/28/25 Gaye Rodrigez, RN Registered Nurse 05/11/25 Cryptozoologist Relationship Specialty Start Date End Date Kell Loza MD [address] [place] [address] [place] [address] PCP - General Geriatric Medicine 01/19/25 Jordon Santiago DO [address] [place] [address] Surgeon General Surgery 01/28/25 Gaye Rodrigez, RN Registered Nurse 05/11/25 Cryptozoologist Relationship Specialty Start Date End Date Kell Loza MD [address] [place] [address] [place] [address] PCP - General Geriatric Medicine 01/19/25 Jordon Santiago DO [address] [place] [address] Surgeon General Surgery 01/28/25 Gaye Rodrigez, RN Registered Nurse 05/11/25 Cryptozoologist Relationship Specialty Start Date End Date Kell Loza MD [address] [place] [address] PCP - General Geriatric Medicine 01/19/25 Jordon Santiago DO [address] [place], [place] [phone] Surgeon General Surgery 01/28/25 Gaye Rodrigez, RN Registered Nurse 05/11/25 Cryptozoologist Relationship Specialty Start Date End Date Kell Loza MD [address] [place] [phone] PCP - General Geriatric Medicine 01/19/25 Jordon Santiago DO [address] [place], [place] [phone] Surgeon General Surgery 01/28/25 Gaye Rodrigez, RN Registered Nurse 05/11/25 Cryptozoologist Relationship Specialty Start Date End Date Kell Loza MD [address] [place] [phone] PCP - General Geriatric Medicine 01/19/25 Jordon Santiago DO [address] [place], [place] [phone] Surgeon General Surgery 01/28/25 Gaye Rodrigez, RN Registered Nurse 05/11/25 Cryptozoologist Relationship Specialty Start Date End Date Kell Loza MD [address] [place] [address] [place] [phone] PCP - General Geriatric Medicine 01/19/25 Jordon Santiago DO [address] [place], [place] [phone] Surgeon General Surgery 01/28/25 Gaye Rodrigez, RN Registered Nurse 05/11/25 Team Status: Active Member Role/Relationship Status Dates Dr. Edilberto Loza MD Primary Care Provider Active Team Status: Active Member Role/Relationship Status Dates Dr. Edilberto Loza MD Primary Care Provider Active Start: April 20, 2025 SRIRAM NORMAN Attending Provider Active Start: April 20, 2025 SRIRAM NORMAN Referring Provider Active Start: April 20, 2025 Team Status: Inactive Member Role/Relationship Status Dates Dr. Edilberto Loza MD Primary Care Provider Active Start: April 30, 2025 End: April 30, 2025 Dr. Edilberto Loza MD Referring Provider Active Start: April 30, 2025 End: April 30, 2025 ASHLEY COLLADO Attending Provider Active S tart: April 30, 2025 End: April 30, 2025 Team Status: Inactive Member Role/Relationship Status Dates Dr. Edilberto Loza MD Primary Care Provider Active Start: July 08, 2025 End: July 08, 2025 ASHLEY COLLADO Attending Provider Active S tart: July 08, 2025 End: July 08, 2025 ASHLEY COLLADO Referring Provider Active S tart: July 08, 2025 End: July 08, 2025 Reason for Visit (unrecogniz ed section and content) Reason Comments Follow-up Nsmwl 3` Reason Comments Follow-up NSMWL Reason Comments Follow-up Nsmwl 5 Reason Comments Surgical Consult NEW Specialty Diagnoses / Procedures Referred By Contac t Referred To Contact Bariatrics Diagnoses Morbid (severe) obesity due to excess calories (HCC) Procedures eval & treat Kell Loza MD [address] [place] [phone] Phone: tel: fax: [facility] Weight Management - [address] [place] [address] Phone: tel: fax: Referral ID Status Reason Start Date Expiration Date V isits Requested Visits Authorized [id number] Pending Review 01/19/2025 01/19/2026 1 1 Reason Onset Date Comments Other 01/25/2025 FINANCIAL FILE 2 025 Surgery Scheduling 01/25/2025 INITIAL SCHED ULING - ORDERS PLACED Reason Comments Weight Management Initial D/E 1 of 3 Reason Comments EGD EGD order Reason Comments New Patient Specialty Diagnoses / Procedures Referred By Contac t Referred To Contact Pulmonary Disease / Pulmonology Diagnoses Gastroesophageal reflux disease without esophagitis Morbid obesity with BMI of 40.0-44.9, adult (HCC) Hypothyroidism, unspecified type Pre-op testing Procedures OR OFFICE/OUTPATIENT NEW HIGH MDM 60 MINUTES Trish Bhatia, LIBRARY MEDIA SPECIALIST - [facility]Y [facility]ILN BURNER [address] [place] [address] Phone: tel: fax: [facility] [place] [address] [place] [address] Phone: tel: fax: Referral ID Status Reason Start Date Expiration Date V isits Requested Visits Authorized [id number] Closed Specialty Services Required 01/28/2025 01/28/2026 1 1 Reason Comments Nutrition Counseling BNA Initial Assessm ent Reason Comments Psychiatric Evaluation Reason Comments Psychiatric Evaluation testing Reason Comments Results Reason Comments Weight Management D/E 2 OF 3 Reason Onset Date Comments Other 03/11/2025 UGI scheduling c oncern Reason Comments Follow-up Reason Comments Cardiac Clearance Specialty Diagnoses / Procedures Referred By Contac t Referred To Contact Cardiology Diagnoses Gastroesophageal reflux disease without esophagitis Morbid obesity with BMI of 40.0-44.9, adult (HCC) Hypothyroidism, unspecified type Pre-op testing Procedures OR OFFICE/OUTPATIENT NEW HIGH MDM 60 MINUTES Trish Bhatia, LIBRARY MEDIA SPECIALIST - [place] [place] BURNER [address] [place] [address] Phone: tel: fax: [facility] Cardiology [facility] [address] [place] [address] Phone: tel: fax: Referral ID Status Reason Start Date Expiration Date V isits Requested Visits Authorized [id number] Closed Specialty Services Required 01/28/2025 01/28/2026 1 1 Reason Comments Weight Management D/E FINAL 3 OF 3 Reason Onset Date Comments Surgery Scheduling 05/11/2025 MBS SURGERY S CHEDULING Reason Comments Weight Management FPOV Reason Comments Bariatrics Post Op Follow-up 1wk Scheduled Active and Recently Administ ered Medications (unrecognized section and content) Medication Order 03/23/2025 03/24/2025 03/25/2025 sodium chloride 0.9% (NS) flush 10 mL 10 mL, IntraVENous, Every 12 hours scheduled (2 times per day), First dose on Taty 03/25/25 at 2100, Preprocedure PRN Medication Order 03/23/2025 03/24/2025 03/25/2025 ondansetron (Zofran) injection 4 mg 4 mg, IntraVENous, Once PRN, nausea, vomiting, Starting on Taty 03/25/25 at 1429, For 1 dose, Preprocedure ondansetron (Zofran) injection 4 mg 4 mg, IntraVENous, Once PRN, nausea, vomiting, Starting on Taty 03/25/25 at 1430, For 1 dose, Preprocedure sodium chloride 0.9 % infusion 5-250 mL/hr, IntraVENous, PRN, if patient receiving piggyback infusions and maintenance fluids are not ordered OR KVO fluids to protect IV site / prevent frequent line interruptions/ long duration, Starting on Taty 03/25/25 at 1429, Preprocedure, For piggyback infusion, administer at same rate as piggyback for a total of 25 mL. Enter 25 mL into dose field and piggyback rate into rate field of order. If piggyback is infusing at a rate less than 100 mL/hr, enter 25 mL into dose field and 100 mL/hr into rate field of order. For KVO fluids, enter rate of 20 mL/hr or less into rate field of order. sodium chloride 0.9 % infusion 5-250 mL/hr, IntraVENous, PRN, if patient receiving piggyback infusions and maintenance fluids are not ordered OR KVO fluids to protect IV site / prevent frequent line interruptions/ long duration, Starting on Taty 03/25/25 at 1430, Preprocedure, For piggyback infusion, administer at same rate as piggyback for a total of 25 mL. Enter 25 mL into dose field and piggyback rate into rate field of order. If piggyback is infusing at a rate less than 100 mL/hr, enter 25 mL into dose field and 100 mL/hr into rate field of order. For KVO fluids, enter rate of 20 mL/hr or less into rate field of order. sodium chloride 0.9% (NS) flush 10 mL 10 mL, IntraVENous, PRN, line care, Starting on Taty 03/25/25 at 1429, Preprocedure, After every IV line use sodium chloride 0.9% (NS) flush 10 mL 10 mL, IntraVENous, PRN, line care, Starting on Taty 03/25/25 at 1430, Preprocedure, After every IV line use Scheduled Medication Order 06/29/2025 06/30/2025 07/01/2025 acetaminophen (Ofirmev) IVPB 1,000 mg 1,000 mg, IntraVENous, at 400 mL/hr, Administer over 15 Minutes, Every 6 hours scheduled (4 times per day), First dose on Sat06/30/25 at 1500 1444 (New Bag - Provider: Saray Angel RN)1459 (Stopped - Provider: Saray Angel RN)2041 (New Bag - Provider: Poornima Campbell RN)2103 (Stopped - Provider: Poornima Campbell RN) 0325 (New Bag - Provider: Poornima Campbell, JIGNA)0338 (Stopped - Provider: Poornima Campbell, JIGNA)0842 (New Bag - Provider: Saray Angel, JIGNA)0857 (Stopped - Provider: Saray Angel RN)1500 (Canceled Entry - Provider: Automatic Discharge Provider - Comment: Automatically canceled at discontinue of medication order) acetaminophen (Tylenol) tablet 1,000 mg (COMPLETED) 1,000 mg, Oral, Once, On Sat06/30/25 at 0545, For 1 dose, Preprocedure, Maximum dose of acetaminophen is 4000 mg from all sources in 24 hours. Do not administer if patient has taken tylenol <4 hours earlier. Do not give if contraindicated ie. patient has active liver disease or cirrhosis. Please administer 60 min prior to procedure. 0601 (Given - Provider: Ada Harrell RN) ceFAZolin (Ancef) 2,000 mg in sodium chloride 0.9 % 100 mL IVPB (COMPLETED) 2,000 mg, IntraVENous, at 200 mL/hr, Administer over 30 Minutes, It Network Engineer to O.R., On Sat06/30/25 at 0545, For 1 dose, Preprocedure, Administer within 1 hour prior to incision. Repeat in 3-4 hours after initial dose if still intra-op. Mini-Bag Plus bag, Suspected Indication (Select all that apply): Surgical Prophylaxis 0756 (New Bag - Provider: KENTON Mckenna CRNA)0957 (Anesthesia Volume Adjustment - Provider: KENTON Mckenna CRNA) celecoxib (CeleBREX) capsule 400 mg (COMPLETED) 400 mg, Oral, Once, On Sat06/30/25 at 0545, For 1 dose, Preprocedure, Avoid with sulfa allergy or creatinine greater than 1.5. Avoid severe hepatic impairment or renal transplant. Avoid if Age > 69. Please administer 60 min prior to procedure. 06 (Given - Provider: Ada Harrell RN) citalopram (CeleXA) tablet 20 mg 20 mg, Oral, Daily, First dose on Taty 07/01/25 at 0900 1139 (Given - Provid er: Saray Angel RN) diatrizoate meglumine-sodium (Gastrografin) 66-10 % solution 60 mL (COMPLETED) 60 mL, Oral, Once, On Taty 07/01/25 at 0815, For 1 dose, Administered at the time of the exam. 08 (Given - Provid er: Dee Dee Perez, RT (R) - Comment: VICENTE) enoxaparin (Lovenox) syringe 30 mg 30 mg, SubCUTAneous, Every 12 hours, First dose on Sat06/30/25 at 2200, Phase II/On Unit, Indication of Use: Prophylaxis-DVT/PE 2040 (Given - Provider: Poornima Campbell, JIGNA) 08 (Given - Provider: Saray Angel RN) famotidine (Pepcid) tablet 20 mg (COMPLETED)(Linked Group 1) 20 mg, Oral, Once, On Sat06/30/25 at 0545, For 1 dose, Preprocedure, IV or ORAL 06 (Given - Provider: Ada Harrell RN) heparin injection 5,000 Units (COMPLETED) 5,000 Units, SubCUTAneous, Once, On Sat06/30/25 at 0545, For 1 dose, Preprocedure 06 (Given - Provider: Ada Harrell, RN) levothyroxine (Synthroid, Levoxyl) tablet 125 mcg 125 mcg, Oral, Daily before breakfast, First dose on Sat07/01/25 at 0900, Tube feeding (TF) interaction, obtain physician order to manage, recommend holding TF for 30 minutes before and after dose. 1038 (Given - Provid er: Saray Angel RN) pantoprazole (ProtoNix) 40 mg in sodium chloride (PF) 0.9 % 10 mL injection 40 mg, IntraVENous, Administer over 2 Minutes, Daily, First dose on Sat06/30/25 at 1145, Phase II/On Unit 1218 (Given - Provider: Saray Angel RN) 0845 (Given - Provider: Saray Angel RN) potassium chloride 20 mEq in NS 250 mL IVPB (premix) (COMPLETED) 20 mEq, IntraVENous, Administer over 3 Hours, Once, On Sat06/30/25 at 1630, For 1 dose, Max infusion rate = 10 mEq/hr 1651 (New Bag - Provider: aSray Angel RN)2040 (Stopped - Provider: Poornima Campbell, JIGNA) scopolamine (Transderm-Scop) patch 1 patch 1 patch, TransDERmal, Administer over 72 Hours, Every 72 hours, First dose on Sat07/01/25 at 0845, Apply to hairless area of skin behind the ear. 0842 (Medication Dav lied - Provider: Saray Angel RN)1518 (Due: Medication Removed - Provider: Automatic Discharge Provider - Comment: Time automatically adjusted from order being discontinued) sodium chloride 0.9% (NS) flush 10 mL 10 mL, IntraVENous, Every 12 hours scheduled (2 times per day), First dose on Sat06/30/25 at 1145, Phase II/On Unit 1138 (Not Given - Provider: Saray Angel RN - Reason: IV Fluids Infusing)2103 (Not Given - Provider: Poornima Campbell RN - Reason: Loss of IV access) 0845 (Given - Provider: Saray Angel RN) Continuous Medication Order 06/29/2025 06/30/2025 07/01/2025 dextrose 5 % and sodium chloride 0.45 % with KCl 20 mEq/L infusion 100 mL/hr, IntraVENous, Continuous, Starting on Sat06/30/25 at 1145, Phase II/On Unit 1217 (New Bag - Provider: Saray Angel RN)1423 (Rate/Dose Verify - Provider: Saray Angel RN) 0100 (New Bag - Provider: Poornima Campbell RN)0626 (Rate/Dose Verify - Provider: Poornima Campbell, RN)0630 (New Bag - Provider: Poornima Campbell RN)0915 (Rate/Dose Verify - Provider: Saray Angel RN)1718 (Due: Order Ending - Provider: Automatic Discharge Provider - Comment: [Order ends at this time. Document the following action when infusion is complete: Stopped]) lactated Ringer's (LR) infusion 50 mL/hr, IntraVENous, Continuous, Starting on Sat06/30/25 at 0545, Preprocedure, Upon admission to sameday - please start iv if patient does not have iv access. Use 500ml NS for patients on dialysis. 0607 (New Bag - Provider: Ada Harrell RN)0730 (Continued by Anesthesia - Provider: KENTON Mckenna CRNA)0934 (Anesthesia Volume Adjustment - Provider: KENTON Mckenna CRNA) 1718 (Due: Order Ending - Provider: Automatic Discharge Provider - Comment: [Order ends at this time. Document the following action when infusion is complete: Stopped]) PRN Medication Order 06/29/2025 06/30/2025 07/01/2025 albuterol (2.5 MG/3ML) 0.083% nebulizer solution 2.5 mg 2.5 mg, Nebulization, Every 6 hours PRN, wheezing, Starting on Sat06/30/25 at 1134, Phase II/On Unit ALPRAZolam (Xanax) disintegrating tablet 0.25 mg (COMPLETED) 0.25 mg, Oral, Once PRN, anxiety, Starting on Sat06/30/25 at 0542, For 1 dose, Preprocedure, Please do not administer prior to obtaining consent and / or history and physical. 0601 (Given - Provider: Ada Harrell RN) hydrALAZINE (Apresoline) injection 10 mg 10 mg, IntraVENous, Every 4 hours PRN, high blood pressure, Second line, give for blood pressure greater than 160 hold for heart greater than 100 bpm, Starting on Sat06/30/25 at 1520 HYDROmorphone (Dilaudid) injection 0.5 mg (CANCELED) 0.5 mg, IntraVENous, Every 5 min PRN, severe pain (7-10), Starting on Sat06/30/25 at 1000, For 4 doses, Recovery (only), Phase I and Phase II- Initial therapy for severe pain (7-10). Restricted to a 90 minute time frame starting when the patient can verbally state their pain score. If after 2 doses the pain score does not decrease by more than one point, then call the provider. If oral meds are utilized, do not return to initial therapy medications. 1032 (Given - Provider: Melanie Reis RN)1044 (Self Administered Via Pump - Provider: Melanie Reis RN) HYDROmorphone (Dilaudid) injection 0.5 mg 0.5 mg, IntraVENous, Every 4 hours PRN, IV breakthrough, Starting on Sat06/30/25 at 1511, If oral and IV narcotics ordered, use oral first and only use IV if oral is ineffective or cannot take oral. Do Not give oral and IV within 1 hour of each other unless specifically ordered. labetalol (Normodyne,Trandate) injection 10 mg 10 mg, IntraVENous, Every 4 hours PRN, high blood pressure, First line, give for blood pressure greater than 160 hold for heart rate less than 60 bpm, Starting on Sat06/30/25 at 1520 naloxone (Narcan) injection 0.4 mg 0.4 mg, IntraVENous, Every 5 min PRN, opioid reversal, respiratory depression, Starting on Sat06/30/25 at 1137, +++ For RR <10, pinpoint pupils, over sedation for opioid reversal - MUST notify surgeon partner provider immediately after first dose, may give IM or SQ if no IV access +++ ondansetron (Zofran) injection 4 mg (COMPLETED) 4 mg, IntraVENous, Once PRN, nausea, Starting on Sat06/30/25 at 1000, For 1 dose, Recovery (only), Initial antiemetic therapy. 1040 (Given - Provider: Melanie Reis RN) ondansetron (Zofran) injection 4 mg(Linked Group 2) 4 mg, IntraVENous, Every 6 hours PRN, nausea, vomiting, Starting on Sat06/30/25 at 1134, Phase II/On Unit, 1st Line. Give IV if patient is unable to take orally. If inadequate response within 60 minutes, proceed to next-line agent or contact provider if no further options ordered. 1506 (See Alternative - Provider: Latasha Mcneal RN)2045 (Given - Provider: Poornima Campbell RN) 0630 (Given - Provider: Poornima Campbell RN) ondansetron ODT (Zofran-ODT) disintegrating tablet 4 mg(Linked Group 2) 4 mg, Oral, Every 8 hours PRN, nausea, vomiting, Starting on Sat06/30/25 at 1134, Phase II/On Unit, 1st Line. If inadequate response within 60 minutes, proceed to next-line agent or contact provider if no further options ordered. Patient should allow tablet to dissolve on tongue. Do not remove from blister pack until just before administering. 1506 (Given - Provider: Latasha Mcneal RN)2045 (See Alternative - Provider: Poornima Campbell RN) 0630 (See Alternative - Provider: Poornima Campbell RN) oxyCODONE (Roxicodone) immediate release tablet 10 mg(Linked Group 3) 10 mg, Oral, Every 4 hours PRN, severe pain (7-10), Starting on Sat06/30/25 at 1511 0630 (Given - Provid er: Poornima Campbell RN)1139 (See Alternative - Provider: Saray Angel RN) oxyCODONE (Roxicodone) immediate release tablet 5 mg (CANCELED) 5 mg, Oral, Every 4 hours PRN, moderate pain (4-6), Starting on Sat06/30/25 at 1134, Phase II/On Unit 1451 (Given - Provider: Saray Angel RN) oxyCODONE (Roxicodone) immediate release tablet 5 mg(Linked Group 3) 5 mg, Oral, Every 4 hours PRN, moderate pain (4-6), Starting on Sat06/30/25 at 1511 0630 (See Alternativ e - Provider: Poornima Campbell RN)113 (Given - Provider: Saray Stanley, RN) promethazine (Phenergan) injection 12.5 mg(Linked Group 4) 12.5 mg, IntraMUSCular, Every 6 hours PRN, nausea, vomiting, Starting on Sat06/30/25 at 1931, Only to be given as IM injection., On hold since Sat07/01/2025 at 0707 until manually unheld 0707 (Held by [facility] - Provider: Jordon Santiago, DO - Reason: Post-procedure)1718 (Unheld by provider - Provider: Automatic Discharge Provider) promethazine (Phenergan) suppository 12.5 mg(Linked Group 4) 12.5 mg, Rectal, Every 6 hours PRN, nausea, vomiting, Starting on Sat06/30/25 at 1931, On hold since Sat07/01/2025 at 0707 until manually unheld 0707 (Held by [facility] - Provider: Jordon Santiago, DO - Reason: Post-procedure)1718 (Unheld by provider - Provider: Automatic Discharge Provider) promethazine (Phenergan) tablet 12.5 mg(Linked Group 4) 12.5 mg, Oral, Every 6 hours PRN, nausea, vomiting, Starting on Sat06/30/25 at 1931, On hold since Sat07/01/2025 at 0707 until manually unheld 0707 (Held by [facility] - Provider: Jordon Santiago, DO - Reason: Post-procedure)1718 (Unheld by provider - Provider: Automatic Discharge Provider) sodium chloride 0.9 % bolus 500 mL (CANCELED) 500 mL, IntraVENous, at 1,000 mL/hr, Administer over 0.5 Hours, PRN, Anti-nausea, Starting on Sat06/30/25 at 1000, Recovery (only), Indications: Anti-nausea 1036 (New Bag - Provider: Melanie Reis RN)1106 (Stopped - Provider: Saray Angel RN) sodium chloride 0.9 % infusion 5-250 mL/hr, IntraVENous, PRN, if patient receiving piggyback infusions and maintenance fluids are not ordered OR KVO fluids to protect IV site / prevent frequent line interruptions/ long duration, Starting on Sat06/30/25 at 1134, Phase II/On Unit, For piggyback infusion, administer at same rate as piggyback for a total of 25 mL. Enter 25 mL into dose field and piggyback rate into rate field of order. If piggyback is infusing at a rate less than 100 mL/hr, enter 25 mL into dose field and 100 mL/hr into rate field of order. For KVO fluids, enter rate of 20 mL/hr or less into rate field of order. sodium chloride 0.9 % irrigation solution (CANCELED) As needed, Starting on Sat06/30/25 at 0814, Intraprocedure 0814 (Given - Provider: Jordon Santiago DO) sodium chloride 0.9% (NS) flush 10 mL 10 mL, IntraVENous, PRN, line care, Starting on Sat06/30/25 at 1134, Phase II/On Unit, After every IV line use sterile water irrigation solution (CANCELED) As needed, Starting on Sat06/30/25 at 0844, Intraprocedure 0844 (Given - Provider: Jordon Santiago DO - Comment: FOR INSTRUMENTS) Linked Groups Order Group 1: famotidine (Pepcid) tablet 20 mg (COMPLETED)Jump to med 20 mg, Oral, Once, On Sat06/30/25 at 0545, For 1 dose, Preprocedure, IV or ORAL Or famotidine (Pepcid) 20 mg in sodium chloride (PF) 0.9 % 10 mL injection (COMPLETED) 20 mg, IntraVENous, Administer over 2 Minutes, Once, On Sat06/30/25 at 0545, For 1 dose, Preprocedure, IV or ORAL Group 2: ondansetron ODT (Zofran-ODT) disintegrating tablet 4 mgJump to med 4 mg, Oral, Every 8 hours PRN, nausea, vomiting, Starting on Sat06/30/25 at 1134, Phase II/On Unit, 1st Line. If inadequate response within 60 minutes, proceed to next-line agent or contact provider if no further options ordered. Patient should allow tablet to dissolve on tongue. Do not remove from blister pack until just before administering. Or ondansetron (Zofran) injection 4 mgJump to med 4 mg, IntraVENous, Every 6 hours PRN, nausea, vomiting, Starting on Sat06/30/25 at 1134, Phase II/On Unit, 1st Line. Give IV if patient is unable to take orally. If inadequate response within 60 minutes, proceed to next-line agent or contact provider if no further options ordered. Group 3: oxyCODONE (Roxicodone) immediate release tablet 5 mgJump to med 5 mg, Oral, Every 4 hours PRN, moderate pain (4-6), Starting on Sat06/30/25 at 1511 Or oxyCODONE (Roxicodone) immediate release tablet 10 mgJump to med 10 mg, Oral, Every 4 hours PRN, severe pain (7-10), Starting on Sat06/30/25 at 1511 Group 4: promethazine (Phenergan) tablet 12.5 mgJump to med 12.5 mg, Oral, Every 6 hours PRN, nausea, vomiting, Starting on Sat06/30/25 at 1931, On hold since Sat07/01/2025 at 0707 until manually unheld Or promethazine (Phenergan) injection 12.5 mgJump to med 12.5 mg, IntraMUSCular, Every 6 hours PRN, nausea, vomiting, Starting on Sat06/30/25 at 1931, Only to be given as IM injection., On hold since Sat07/01/2025 at 0707 until manually unheld Or promethazine (Phenergan) suppository 12.5 mgJump to med 12.5 mg, Rectal, Every 6 hours PRN, nausea, vomiting, Starting on Sat06/30/25 at 1931, On hold since Sat07/01/2025 at 0707 until manually unheld FOR RECORDS PERTAINING TO PATIENTS WHO ARE OR HAVE BEEN ENROLLED IN A CHEMICAL DEPENDENCY/SUBSTANCEABUSE PROGRAM, SOME INFORMATION MAY BE OMITTED. This clinical summary was aggregated from multiple sources. Caution should be exercised in using it in the provision of clinical care. This summary normalizes information from multiple sources, and as a consequence, information in this document may materially change the coding, format and clinical context of patient data. In addition, data may be omitted in some cases. CLINICAL DECISIONS SHOULD BE BASED ON THE PRIMARY CLINICAL RECORDS. [facility]. provides no warranty or guarantee of the accuracy or completeness of information in this document.
--- NOTE | 2025-07-17 09:02 | CT_ITS ---
PROCEDURE: LOW DOSE CT LUNG SCREENING 07/17/2025 REASON FOR EXAM: FORMER SMOKER, OTHER DISORDERS OF THE LUNG. TECHNIQUE: Procedure Code: [id number] Modality: CT Procedure: LOW DOSE CT LUNG SCREENING Coronal and Sagittal reconstruction series were provided. One or more dose reduction techniques were used (e.g., Automated exposure control, adjustment of the mA and/or kV according to patient size, use of iterative reconstruction technique). REFERENCE LINK: [facility] Lung-RADS COMPARISON: CT images dated 03/22/2021. the corresponding report is not available. FINDINGS: A 6 mm slightly linear density is noted in the right lower lobe of the lungs (series 2 image 139), unchanged. The remainder of the lungs is clear. The unenhanced heart is normal in size. The unenhanced great vessels appear grossly unremarkable. No thoracic lymphadenopathy. Calcified right hilar lymph nodes. Cholecystectomy. Postsurgical changes involving the stomach are noted, probably a gastric bypass. Mild thoracic spondylosis. CT/Low Dose CT Lung Screening IMPRESSION: Lung-RADS Category: 2 BENIGN (BASED ON IMAGING FEATURES OR INDOLENT BEHAVIOR). RECOMMEND 12-MONTH SCREENING LDCT. Other Significant Findings: See above. Reading Location: [id number]
== END | disposition home or self-care (01) ==
LOC: CT 08:49
PROVIDERS: PCP Family Medicine Geriatric Medicine; Referring Provider Family Medicine Geriatric Medicine; Visit Provider Family Medicine Geriatric Medicine
DX: Z12.2 Encounter for screening for malignant neoplasm of respiratory organs (principal); J98.4 Other disorders of lung; Z87.891 Personal history of nicotine dependence
CPT/HCPCS: 71271

== ENCOUNTER → 2025-07-23 | Outpatient (CLI) | payer MEDICARE, SELFPAY ==
--- NOTE | 2025-07-23 14:40 | BI_ITS ---
EXAM: SCRN MAMM (CAD)W/BRIGID BILAT DATE: 07/23/2025 CLINICAL HISTORY: F, Age 59 y/o , SCREEN No family TECHNIQUE: Procedure Code: [id number] Modality: MG Procedure: SCRN MAMM (CAD)W/BRIGID BILAT COMPARISON: Prior exam(s) dated March 23, 2021.. FINDINGS: TISSUE DENSITY: There are scattered areas of fibroglandular density. Bilateral Breast Mammographic Findings: No significant masses, calcifications or other abnormalities are identified. Stable 7.6 mm well-defined nodule in the medial retroareolar region of the right breast. This most likely represents a small lymph node. Stable small bilateral axillary lymph nodes. No suspicious masses, areas of developing architectural distortion, or suspicious calcifications. There has been no significant interval change. BI/SCRN MAMM (CAD)W/BRIGID BILAT IMPRESSION: Stable bilateral screening mammogram. Sonographic correlation of the nodular d ensity in the right breast recommended. OVERALL FINAL ASSESSMENT BI-RADS 0: INCOMPLETE - NEED ADDITIONAL IMAGING EVALUATION. RECOMMENDATION: Ultrasound Recommended A letter with findings and recommendations will be mailed to the patient. Reading Location: [place] [id number]
== END | disposition home or self-care (01) ==
LOC: OPBI 14:39
PROVIDERS: PCP Family Medicine Geriatric Medicine; Referring Provider Family Medicine Geriatric Medicine; Visit Provider Family Medicine Geriatric Medicine
DX: Z12.31 Encounter for screening mammogram for malignant neoplasm of breast (principal)
CPT/HCPCS: 77063; 77067

== ENCOUNTER → 2025-07-27 | Outpatient (CLI) | payer MEDICARE, SELFPAY ==
--- NOTE | 2025-07-27 09:29 | US_ITS ---
PROCEDURE: BREAST LIMITED UNILATERAL 07/27/2025 REASON FOR EXAM: F, Age 59 y/o , ABN MAMM COMPARISON: Prior mammogram dated July 23, 2025.. TECHNIQUE: Procedure Code: USBRSTLIMIT Modality: US Procedure: BREAST LIMITED UNILATERAL FINDINGS: The mammographic abnormality corresponds to a 1.1 cm x 0.7 cm by 0.5 cm well- defined hypoechoic solid nodule at the 4 o'clock position of the breast at 1 cm from the nipple. 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 Biopsy recommended. US/Breast Limited Unilateral IMPRESSION: The mammographic abnormality corresponds to a 1.1 cm x 0.7 cm x 0.5 cm well-def ined hypoechoic solid nodule at the 4 o'clock position of the breast at 1 cm from the nipple. 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 Biopsy recommended. BI-RADS 4: SUSPICIOUS RECOMMENDATION: Biopsy Recommended Reading Location: [place] [id number]
--- NOTE | 2025-08-03 13:09 | NURSING ---
Radiology RNs have attempted to call pt on 07/29/25, 07/30/25, and 08/03/25. Voicemail left on 07/29/25 to call back to get surgeon preference for consultation for BiRads of 4. Pt has not returned call.
== END | disposition home or self-care (01) ==
LOC: OPUS 09:27
PROVIDERS: PCP Family Medicine Geriatric Medicine; Referring Provider Family Medicine Geriatric Medicine; Visit Provider Family Medicine Geriatric Medicine
DX: R92.8 Other abnormal and inconclusive findings on diagnostic imaging of breast (principal); N63.10 Unspecified lump in the right breast, unspecified quadrant
CPT/HCPCS: 76642

== ENCOUNTER 2025-08-07 07:23 | Emergency (ER) | payer MEDICARE, SELFPAY ==
--- OUTSIDE RECORDS SUMMARY | 2025-08-02 09:44 | XMS RPT_ITS ---
Author Name Auto Generated Organization OHIP Support Name Relationship Address Phone HOMERO ONEILL Next of Kin Unknown [phone] ALEXEYFebruary Next of Kin Unknown [phone] ONEILLHOMERO Next of Kin Unknown [phone] Next of Kin Unknown [phone] ONEILLHOMERO Next of Kin Unknown [phone] February Next of Kin Unknown [phone] HOMERO ONEILL Next of Kin Unknown [phone] ONEILLHOMERO Next of Kin Unknown [phone] ONEILLHOMERO Next of Kin Unknown [phone] ONEILLHOEMRO Next of Kin Unknown [phone] ONEILLHOMERO Next of Kin Unknown [phone] GREGORYSilasHOMERO Next of Kin Unknown [phone] HOMERO MORSE Next of Kin Unknown [phone] HOMERO MORSE Next of Kin Unknown [phone] HOMERO MORSE Next of Kin Unknown [phone] HOMERO MORSE Next of Kin Unknown [phone] HOMERO MORSE Next of Kin Unknown [phone] HOMERO MORSE Next of Kin Unknown [phone] HOMERO MORSE Next of Kin Unknown [phone] HOMERO MORSE Next of Kin Unknown [phone] Care Team Providers Care Palliative Senior Np Name Role Phone BUCKY, JONATHAN-CHI Primary Care Unavailable POZSGAY, JORDON Attending Unavailable POZSGAY, JORDON Admitting Unavailable BUCKY, JONATHAN-CHI Primary Care Unavailable POZSGAY, JORDON Attending Unavailable POZSGAY, JORDON Admitting Unavailable BUCKY, JONATHAN-CHI Primary Care Unavailable TRISH BHATIA Attending Unavailab le BUCKY, JONATHAN-CHI Referring Unavailable BUCKY, JONATHAN-CHI Primary Care Unavailable POZSGAY, JORDON Attending Unavailable BUCKY, JONATHAN-CHI Primary Care Unavailable POZSGAY, JORDON Attending Unavailable BUCKY, JONATHAN-CHI Referring Unavailable POZSGAY, JORDON Attending Unavailable BUCKY, JONATHAN-CHI Primary Care Unavailable BUCKY, JONATHAN-CHI Primary Care Unavailable BUCKY, JONATHAN-CHI Referring Unavailable TRISH BHATIA Attending Unavailab le BUCKY, JONATHAN-CHI Primary Care Unavailable BIBIANA BREEN Attending Unavailable BUCKY, JONATHAN-CHI Primary Care Unavailable TRISH BHATIA Attending Unavailab le BUCKY, JONATHAN-CHI Referring Unavailable BUCKY, JNOATHAN-CHI Primary Care Unavailable TRISH BHATIA Attending Unavailab le TRISH BHATIA Referring Unavailab le BUCKY, JONATHAN-CHI Primary Care Unavailable BCUKY, JONATHAN-CHI Referring Unavailable POZSGAY, JORDON Attending Unavailable BUCKY, JONATHAN-CHI Primary Care Unavailable POZSGAY, JORDON Attending Unavailable BUCKY, JONATHAN-CHI Primary Care Unavailable TRISH BHATIA Referring Unavailab le DILANSTENMACRICKET VELÁZQUEZ Attending Unavailable BUCKY, JONATHAN-CHI Primary Care Unavailable TRISH BHATIA Referring Unavailab JF Hampton Attending Unavailable POZSGAY, JORDON Attending Unavailable BUCKY, JONATHAN-CHI Primary Care Unavailable BUCKY, JONATHAN-CHI Primary Care Unavailable BIBIANA BREEN Attending Unavailable BUCKY, JONATHAN-CHI Primary Care Unavailable BIBIANA BREEN Attending Unavailable PROBLEMS DATE TYPE CONDITION / CODE ATTENDING STATUS [facility] 07/26/2025 Admitting Diagnosis Gastro-esophageal reflux disease without esophagitis / K21.9(ICD-10) JORDON MOORE [facility] 08/02/2025 Admitting Diagnosis Obesity, class 2 / E66.812(ICD-10) JORDON MOORE [facility] 08/02/2025 Admitting Diagnosis Body mass index (BMI) 38.0-38.9, adult / Z68.38(ICD-10) [facility] 06/30/2025 Admitting Diagnosis Bariatric surgery status / Z98.84(ICD-10) [facility] 07/05/2025 Admitting Diagnosis 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) [facility] 07/05/2025 Admitting Diagnosis Deficiency of other specified B group vitamins / E53.8(ICD-10) [facility] 06/30/2025 Admitting Diagnosis Morbid (severe) obesity due to excess calories (HCC) / E66.01(ICD-10) [facility] 05/24/2025 Admitting Diagnosis Body mass index (BMI) 40.0-44.9, adult (HCC) / Z68.41(ICD-10) [facility] 06/30/2025 Admitting Diagnosis Other acute postprocedural pain / G89.18(ICD-10) [facility] 01/25/2025 Admitting Diagnosis Hypothyroidism, unspecified / E03.9(ICD-10) [facility] 03/10/2025 Admitting Diagnosis Encounter for other preprocedural examination / Z01.818(ICD-10) TRISH BHATIA [facility] 01/25/2025 Admitting Diagnosis Major depressive disorder, recurrent, mild (HCC) / F33.0(ICD-10) BIBIANA BREEN [facility] 03/02/2025 Admitting Diagnosis Other specified eating disorder / F50.89(ICD-10) BIBIANA BREEN [facility] 03/02/2025 Admitting Diagnosis Other specified anxiety disorders / F41.8(ICD-10) BIBIANA BREEN [facility] 02/19/2025 Admitting Diagnosis Nicotine dependence, cigarettes, in remission / F17.211(ICD-10) CRICKET RINCON [facility] PROCEDURES No Procedure Records Found RESULTS PROGRESS NOTE Observed: 08/02/2025 10:00 AM Status: COMPLETED Source: [facility] HPI, PHYSICAL EXAMINATION & PLAN POST-OP HPI: Patient here today for 1 month post-weight loss surgery follow up The patient is feeling well. Denies nausea, vomiting, dysphagia, or any GERD Sx. Currently is on a PPI. Patient states diet and exercise is going fairly well. Currently is eating 65-75 gm/day protein, and is compliant with prescribed multivitamins and supplements. Increase exercise Review of Systems Constitutional: Negative. HENT: Negative. Respiratory: Negative. Cardiovascular: Negative. Gastrointestinal: Positive for abdominal pain. Left side incisional pain - this is improved 3 episodeds of dysphagia - now improving. Genitourinary: Negative. Musculoskeletal: Negative. Neurological: Negative. Psychiatric/Behavioral: Negative. All other systems reviewed and are negative. Vital signs are stable. Labs were Completed All labs were: normal Physical Examination: BP 116/76 Pulse 76 Temp 36.2 ?C (97.2 ?F) Ht 5' 5 (1.651 m) Wt 228 lb 12.8 oz (104 kg) Comment: [facility] BMI 38.07 kg/m? Physical Exam Constitutional: Appearance: Normal appearance. [...] Affect: Mood normal. Behavior: Behavior normal. Surgical site: is:clean, dry, intact, and nontender Drainage from surgical site: none Patient does not have a superficial incisional SSI Current Medications: Patient's Medications New Prescriptions No medications on [...] PATIENT STATES LAST TAKEN ON 06/19/25 CALCIUM CITRATE 250 MG TABLET Take 2 tablets (500 mg) by mouth 3 times daily. Take 2 tablets by mouth three times daily. CHOLECALCIFEROL (VITAMIN D) 50 MCG (2000 UT) CAPSULE Take 2 capsules (100 mcg) by mouth daily. CITALOPRAM (CELEXA) 20 MG TABLET Take 20 mg by mouth daily. CYANOCOBALAMIN [address] 1 tablet (500 mcg) under the tongue daily. Place 500 mcg under the tongue to dissolve once daily LEVOTHYROXINE (SYNTHROID, LEVOXYL) 125 MCG TABLET Take 125 mcg by mouth daily. MULTIPLE VITAMINS-MINERALS (CENTRUM ADULTS) TABLET Take 2 tablets by mouth daily. NYSTATIN (MYCOSTATIN) 480747 UNIT/ML SUSPENSION Take 5 mL (500,000 Units) by mouth 4 times daily. Swish in mouth and spit out. PANTOPRAZOLE (PROTONIX) 40 MG EC TABLET Take 40 mg by mouth daily. THIAMINE (VITAMIN B-1) 50 MG TABLET Take 1 tablet (50 mg) by mouth daily. Take 1 tablet by mouth daily. Modified Medications No medications on file Discontinued Medications No medications on file Medications ordered during this encounter: Encounter Medications[1] Orders Placed This Encounter Procedures Zinc Folate Iron Ferritin Magnesium Vitamin B12 Comprehensive metabolic panel CBC Visit Diagnoses: 1. H/O gastric bypass 2. Deficiency of multiple nutrient elements 3. Deficiency of other specified B group vitamins 4. Class 2 severe obesity due to excess calories with serious comorbidity and body mass index (BMI) of 38.0 to 38.9 in adult (HCC) 5. Gastroesophageal reflux disease without esophagitis Plan: 1). Cleared for all activity, no weight restrictions. All incisions healed. 2). Continue PPI until 6 month office visit 3). Labs: normal 4). F/u at 3 month office visit with standard labs 5). Progressing diet as tolerated per RD 6). Psych concerns: No 7). Dysphagia: No 8). If patient is a woman of childrearing age- 18-50. We discussed the importance of contraception during the first 12-18 months post op, and we discussed that fertility will increase following the procedure. Advised patient to discuss with her OBGYN regarding contraception. Patient counseled with good understanding verbalized. 9). Weight loss: Post-op Weight Metrics: %EBWL: % EBWL: 17% Weight Change Since Last Visit: Weight Change: -17.8 lbs Weight Change from Highest Pre-op Weight: Total Weight Change: -20.8 lbs Patient met with the dietitian today to review are vitamin and protein recommendations. Increase activity as recommended, the wounds are healed, no evidence of abdominal wall hernias. No nausea vomiting or dysphagia noted. Appropriate bowel function, discussed with her regarding contacting us for any questions or concerns. The lab slip was signed for the next visit, labs from 07/01/25 were reviewed and are within normal limits. Follow-up 3 months postop. Doing well No major issues Dysphagia is improving Tolerating diet Taking PPI Follow up with PCP - stopped a depression med but not mentioned to PCP - encourage to follow up. Ok for DECAF coffee only I personally performed the evaluation and management [...] questions were answered. Patient Care Team: Kell Lawler MD as PCP - General (Geriatric Medicine) Jordon Moore DO as Surgeon (General Surgery) Gaye Rodrigez RN as Registered Nurse [1] Outpatient Encounter Medications as of 08/02/2025 Medication Sig Dispense Refill biotin 5000 MCG capsule Take 1 capsule by mouth daily. PATIENT STATES LAST TAKEN ON 06/19/25 calcium citrate 250 MG tablet Take 2 [...] to dissolve once daily 30 tablet 11 levothyroxine (Synthroid, Levoxyl) 125 MCG tablet Take 125 mcg by mouth daily. Multiple Vitamins-Minerals (Centrum Adults) tablet Take 2 tablets by mouth daily. 60 tablet 11 pantoprazole (ProtoNix) 40 MG EC tablet Take 40 mg by mouth daily. thiamine (Vitamin B-1) 50 MG tablet Take 1 tablet (50 mg) by mouth daily. Take 1 tablet by mouth daily. 30 tablet 11 B Complex-C (SUPER B COMPLEX PO) Take 1 tablet by mouth daily. PATIENT STATES LAST TAKEN ON 06/19/25 (Patient not taking: Reported on 08/02/2025) BLACK COHOSH PO Take by mouth daily. PATIENT STATES LAST TAKEN ON 06/19/25 (Patient not taking: Reported on 08/02/2025) Calcium Carbonate (CALCIUM 600 PO) Take 1 tablet by mouth daily. PATIENT STATES LAST TAKEN ON 06/19/25 (Patient not taking: Reported on 08/02/2025) citalopram (CeleXA) 20 MG tablet Take 20 mg by mouth daily. (Patient not taking: Reported on 08/02/2025) nystatin (Mycostatin) 573977 UNIT/ML suspension Take 5 mL (500,000 Units) by mouth 4 times daily. Swish in mouth and spit out. (Patient not taking: Reported on 08/02/2025) 280 mL 0 [] ondansetron ODT (Zofran-ODT) 4 MG disintegrating tablet Take 1 tablet (4 mg) by mouth every 8 hours as needed for nausea for up to 7 days. 21 tablet 0 [] oxyCODONE (Roxicodone) 5 MG immediate release tablet Take 1 tablet (5 mg) by mouth every 6 hours as needed for severe pain (7-10) for up to 5 days. 20 tablet 0 [DISCONTINUED] Multiple Vitamins-Minerals (CENTRUM SILVER ULTRA WOMENS [...] Factor (Patient not taking: Reported on 06/07/2025) No facility-administered encounter medications on file as of 08/02/2025. PROGRESS NOTE Observed: 08/02/2025 10:00 AM Status: COMPLETED Source: [facility] 1 MONTH POST-OPERATIVE DIETITIAN VISIT Date: 08/02/25 Surgeon: Dr. Moore Current Medications: has a current medication list which includes the following prescription(s): biotin, calcium citrate, vitamin d, cyanocobalamin, levothyroxine, centrum adults, pantoprazole, thiamine, b complex-c, black cohosh, calcium carbonate, citalopram, and nystatin. Patient's weight decreased by: -17.8 lbs since last visit Patient is reporting: symptoms: Nausea and Vomiting - pain when eating tuna / fish Patient portions discussed. Portions are adequate for current diet (?-? cup or 2-4 oz) Patient does consume 2-3 small meals daily. Patient reports portion size of ? cup (2oz) Patient does consume 2-3 small snacks daily. Patient reports portion size of ? cup (2oz) Protein requirements discussed. currently consuming about 60-80 grams of protein daily. Current protein sourcesbeans, cheese, chicken, cottage cheese, protein bar, protein beverage, and yogurt Fluid requirements discussed. Current Fluid Intake: 32-48 oz Patient only drinks sugar-free, caffeine-free and carbonation-free fluids Yes Patient waits 30 minutes after meals to drink Yes Exercise activities discussed. Patient does plan to exercise when cleared. Type of planned exercise walking and gym. She was reminded that regular exercise is critical part of a successful outcome following weight loss surgery. Behavioral/Emotional changes reviewed. Patient does feel comfortable with changes in eating behaviors and associated emotional changes. She was reminded that psychological counseling is available through the [facility] post-operatively. Lab values discussed: It is important to complete ordered labs prior to the 3 month follow-up appointment. Vitamin supplementation: Discussed with patient. She will continue the following vitamin supplements: Calcium Citrate tid, MultiVitamin with Iron, Vitamin B12, Vitamin B1, and Vitamin D3 Recent Nutrient Concerns and Vitamin Supplementation Changes: continue taking vitamin regimen Notes/Comments: Current diet reviewed with patient. Advancement of current diet (can resume nuts, seeds, skins on fruits/vegetables, and salads) and maintenance diet portions discussed. Discussed eliminating fish to see if that helps with nausea / vomiting issue. Increase water intake. Track protein. Discussed straw use. Please do not hesitate to call or reach out via [employer] with any questions or concerns. Visit Completed by: Katlyn Bradford MS, RDN, LD OFFICE VISIT Observed: 08/02/2025 10:00 AM Status: COMPLETED Source: [facility] [id number] Jaime Oneill [birth year] Date Provider Department Center 08/02/2025 JORDON SUNSHINE [facility] None Family History Problem Relation Age of Onset Obesity Mother Diabetes Mother High Blood Pressure Mother Obesity Father Diabetes Father High Blood Pressure Father Heart disease Father Stroke Father Heart disease Sister Obesity Sister Heart disease Brother High Blood Pressure Brother Family Status - Relation Status Age at Mother Alive Father Sister Alive Brother Alive Level of Service:30414 ME POSTOP FOLLOW UP VISIT RELATED TO ORIGINAL PX Reason for Visit and Comments: Bariatrics Post Op Follow-up [884] - 1m 36 Observed: 07/23/2025 10:55 AM Status: COMPLETED Source: [facility] 06/30/25 LRYGB W/ HH MP Outside Labs [facility] 07-08-25: Elevated AST: 42 and ALT: 66 (noting pt just had surgery 8 days prior to lab draw) Elevated B12: 1798 Elevated iron: 41 Sent patient message via [employer] to assess vitamin regimen. Pending response. -sent list of low iron foods -encouraged adequate hydration for B12 36 Observed: 07/06/2025 9:20 AM Status: COMPLETED Source: [facility] 06/30/25 LRYGB W/ HH MP Last OV-yesterday w MP, next 08/02/25 w MP Incoming call from female that states she is calling for pt. States pt was in yesterday for one week POP and forgot to ask when she is able to drive. Female indicated that can respond to pt via [employer] or call the caller back. Unable to call, as no contact info left. Will send Happy Dayst to pt that she is able to drive now as long as she is can do so without pain and is no longer taking narcotics. OFFICE VISIT Observed: 07/05/2025 8:40 AM Status: COMPLETED Source: [facility] [id number] Jaime Oneill 11[birth year] Date Provider Department Center 07/05/2025 [id number] ZULUAGA [facility] None Family History Problem Relation Age of Onset Obesity Mother Diabetes Mother High Blood Pressure Mother Obesity Father Diabetes Father High Blood Pressure Father Heart disease Father Stroke Father Heart disease Sister Obesity Sister Heart disease Brother High Blood Pressure Brother Family Status - Relation Status Age at Mother Alive Father Sister Alive Brother Alive Level of Service:[id number] ME POSTOP FOLLOW UP VISIT RELATED TO ORIGINAL PX Reason for Visit and Comments: Bariatrics Post Op Follow-up [884] - 1wk PROGRESS NOTE Observed: 07/05/2025 8:40 AM Status: COMPLETED Source: [facility] HPI, PHYSICAL EXAMINATION & PLAN POST-OP HPI: [...] water until 1 month office visit. The certified prosthetist vice president is to discuss and start supplements. Patient [...] MD Saurabh CORTES [address] [facility] [phone] - [phone] And if not done at a [facility], please send to: [place] [address] Patient Name: Jaime Oneill - 1965 Order Created by : Doreen Neely MA Standing Status: Future Number of Occurrences: 1 Expected Date: 07/14/2025 Expiration Date: 06/30/2026 Folate These orders are set for an approximate date - they can be drawn up to 3 months prior to the Expected Date on this Req. Please send results to: MD Saurabh CORTES [address] [facility] [phone] - [phone] And if not done at a [facility], please send to: [address], [facility] Patient Name: Jaime Wiley 1965 Order Created by : Doreen Neely MA Standing Status: Future Number of Occurrences: 1 Expected Date: 07/14/2025 Expiration Date: 06/30/2026 Iron These orders are set for an approximate date - they can be drawn up to 3 months prior to the Expected Date on this Req. Please send results to: MD Saurabh CORTES [address] [facility] [phone] - [phone] And if not done at a [facility], please send to: [address], [address] Patient Name: Jaime Wiley 1965 Order Created by : Doreen Neely MA Standing Status: Future Number of Occurrences: 1 Expected Date: 07/14/2025 Expiration Date: 06/30/2026 Ferritin These orders are set for an approximate date - they can be drawn up to 3 months prior to the Expected Date on this Req. Please send results to: MD Saurabh CORTES [address] [facility] [phone] - [phone] And if not done at a [facility], please send to: [place] [address] Patient Name: Jaime Wiley 1965 Order Created by : Doreen Neely MA Standing Status: Future Number of Occurrences: 1 Expected Date: 07/14/2025 Expiration Date: 06/30/2026 Magnesium These orders are set for an approximate date - they can be drawn up to 3 months prior to the Expected Date on this Req. Please send results to: MD Saurabh CORTES [address] [facility] [phone] - [phone] And if not done at a [facility], please send to: [place] [address] Patient Name: Jaime Wiley 1965 Order Created by : Doreen Neely MA Standing Status: Future Number of Occurrences: 1 Expected Date: 07/14/2025 Expiration Date: 06/30/2026 Vitamin B12 These orders are set for an approximate date - they can be drawn up to 3 months prior to the Expected Date on this Req. Please send results to: MD Saurabh CORTES [address] [facility] [phone] - [phone] And if not done at a [facility], please send to: [address], [facility] Patient Name: Jaime Wiley 1965 Order Created by : Doreen Neely MA Standing Status: Future Number of Occurrences: 1 Expected Date: 07/14/2025 Expiration Date: 06/30/2026 Comprehensive metabolic panel These orders are set for an approximate date - they can be drawn up to 3 months prior to the Expected Date on this Req. Please send results to: KELL LAWLER MD - [address] [facility] [phone] - [phone] And if not done at a [facility], please send to: [place] [address] Patient Name: Jaime Oneill - 1965 Order Created by : Doreen Neely MA Standing Status: Future Number of Occurrences: 1 Expected Date: 07/14/2025 Expiration Date: 06/30/2026 CBC These orders are set for an approximate date - they can be drawn up to 3 months prior to the Expected Date on this Req. Please send results to: KELL LAWLER MD - [address] [facility] [address] [facility] [phone] - [phone] And if not done at a [facility], please send to: [place] [address] Patient Name: Jaime Wiley 1965 Order Created [...] 2 tablets by mouth daily. NYSTATIN (MYCOSTATIN) 239248 UNIT/ML SUSPENSION Take 5 mL (500,000 Units) [...] questions were answered. Patient Care Team: Kell Lawler MD as PCP - General (Geriatric Medicine) Jordon Moore DO as Surgeon (General Surgery) Gaye Rodrigez [...] mouth daily. 60 tablet 11 nystatin (Mycostatin) 256547 UNIT/ML suspension Take 5 mL (500,000 Units) [...] [] celecoxib (CeleBREX) capsule 400 mg [] gmdNVCVFhhong-dzhkiteguuo-zwkyumlbltx (TAP) syringe [] diatrizoate meglumine-sodium (Gastrografin) 66-10 [...] encounter medications on file as of 07/05/2025. PROGRESS NOTE Observed: 07/05/2025 8:40 AM Status: COMPLETED Source: [facility] 1 WEEK VISIT POST-OPERATIVE DIETITIAN Date: 07/05/25 Surgeon: Dr. Moore Current Medications: has a current medication list [...] questions or concerns. Visited completed by: Katlyn Bradfrod MS, RDN, LD 36 Observed: 07/02/2025 1:07 PM Status: COMPLETED Source: [employer] [facility] Attempted to call patient fo r follow up to inpatient hospital stay. Left voice mail with my direct number and request for return call. DISCHARGE SUMMARY Observed: 07/01/2025 1:37 PM Status: COMPLETED Source: [facility] Discharge Summary Jaime Oneill : 1965 ADMIT DATE: 06/30/2025 DISCHARGE DATE: 07/01/25 PRIMARY CARE PHYSICIAN: KELL LAWLER MD VISIT STATUS: Admission CODE STATUS: Prior DISCHARGE DIAGNOSES: Principal Problem: Morbid obesity with BMI of 40.0-44.9, adult ([facility]) Active Problems: Obesity, morbid, BMI 40.0-49.9 ([facility]) BMI Classification: Estimated body mass index is 42.43 kg/m? as calculated from the following: Height as of this encounter: 5' 5 (1.651 m). Weight as of this encounter: 255 lb (116 kg). BMI is less than 18.5, it falls within the underweight range. BMI is 18.5 to <25, it falls within the healthy weight range. BMI is 25.0 to <30, it falls within the overweight range. BMI is 30.0 or higher, it falls within the obesity range. HOSPITAL COURSE: Pt taken to OR for laparoscopic diana en Y gastric bypass and hiatal hernia repair. The patient the tolerated procedure without any complications. Immediately post-op, pt was extubated and transferred to PACU in stable condition. After PACU criteria met and within 24 hrs of procedure, patient was transferred to the floor in stable condition. Patient tolerated bariatric clear liquids postoperatively and subsequently underwent an UGI on POD1 that revealed no leak or extravasation of contrast. Patient then had her diet resumed, was tolerating the diet, pain was well controlled, and was able to ambulate without any difficulties prior to being discharged on 07/01/25. Throughout robb-operative course, there was monitoring of vital signs, urine output and clinical status of patient. Diet was subsequently advanced and by the day of discharge patient was ambulating, voiding and tolerating PO without difficulty. Pain was well controlled with oral medications by time of discharge. SIGNIFICANT DIAGNOSTIC STUDIES: See EMR CONSULTANTS: N/a MEDICATION CHANGES: N/a RECOMMENDED NEXT STEPS: Follow up with Dr. Moore in two weeks DISCHARGE MEDICATIONS: Medication List START taking these medications ondansetron ODT 4 MG disintegrating tablet Commonly known as: Zofran-ODT Take 1 tablet (4 mg) by mouth every 8 hours as needed for nausea for up to 7 days. oxyCODONE 5 MG immediate release tablet Commonly known as: Roxicodone Take 1 tablet (5 mg) by mouth every 6 hours as needed for severe pain (7-10) for up to 5 days. CONTINUE taking these medications biotin 5000 MCG capsule BLACK COHOSH PO CALCIUM 600 PO CENTRUM SILVER ULTRA WOMENS PO citalopram 20 MG tablet Commonly known as: CeleXA levothyroxine 125 MCG tablet Commonly known as: Synthroid, Levoxyl pantoprazole 40 MG EC tablet Commonly known as: ProtoNix SUPER B COMPLEX PO STOP taking these medications UNABLE TO FIND Where to Get Your Medications These medications were sent to [facility] [address] [place] [id number] Hours: Saturday to Saturday 10 am to 6 pm ondansetron ODT 4 MG disintegrating tablet oxyCODONE 5 MG immediate release tablet DIET: No diet orders on file ACTIVITY: No heavy lifting. COMPLEXITY OF FOLLOW UP: [x] Moderate Complexity: follow up within 7-14 calendar days (84619) [] Severe Complexity: follow up within 7 calendar days (16149) FOLLOW UP TESTING, PENDING RESULTS OR REFERRALS AT TRANSITIONAL CARE VISIT: [] Yes [x] No PENDING STUDIES: No DISPOSITION: Home FACILITY/HOME CARE AGENCY NAME: m/a Follow up with Kell Lawler MD [address] [facility] [address] [facility] [phone] Jordon Moore, [address] [facility] [address] [facility] [address] Follow up in 2 week(s) postop check DISCHARGE TIME: > 30 minutes SIGNED: Antoine Stiles MD General Surgery Resident 07/02/25 6:30 AM This note may have been dictated using [employer] Edition 2.6 and/or [employer] Voice Recognition Feature. The document was proofread; however, unrecognized voice recognition cold mill supervisor errors may be present. PROGRESS NOTE Observed: 07/01/2025 8:44 AM Status: COMPLETED [facility] Preliminary negative for nohemi oro PROGRESS NOTE Observed: 07/01/2025 8:21 AM Status: COMPLETED [facility] Attestation signed by Jordon Moore DO at 07/23/2025 4:03 PM Doing well day 1 from Operation: Laparoscopic Diana-en-Y gastric bypass procedure No events overnight Vitals OK Ugi this am Advance diet Wounds ok Dvt prophyaxis Dc planning when stable. [facility] Patient Name: Jaime Oneill Date: 07/01/25 MIS-General Surgery/Bariatric Progress Note Subjective: The patient is doing well, postoperative day #1 from LRYGB, HH repair. No nausea, vomiting, or adverse events overnight. States she had some nausea after returning to the floor after surgery yesterday, but it resolved thereafter. Feeling well this morning, sitting in the chair watching the sunrise. Scheduled Meds:Scheduled Meds[1] Continuous Infusions:Continuous Meds[2] PRN Meds:PRN Meds[3] Allergies[4] Objective: Patient Vitals for the past 24 hrs: BP Temp Temp src Pulse Resp SpO2 07/01/25 0547 130/67 36.2 ?C (97.1 ?F) Temporal 76 14 96 % 07/01/25 0024 137/68 36.3 ?C (97.4 ?F) Temporal 71 18 96 % 06/30/25 2023 118/76 36.2 ?C (97.2 ?F) Temporal 72 22 96 % 06/30/25 1638 125/69 36 ?C (96.8 ?F) Temporal 76 18 97 % 06/30/25 1232 -- 36.6 ?C (97.9 ?F) Oral -- -- -- 06/30/25 1137 97/50 (!) 35 ?C (95 ?F) Temporal 62 15 92 % 06/30/25 1115 (!) 100/45 -- -- 62 12 99 % 06/30/25 1045 (!) 107/45 -- -- 62 16 99 % 06/30/25 1030 110/57 -- -- 62 15 96 % 06/30/25 1015 (!) 128/46 -- -- 59 16 100 % 06/30/25 1000 (!) 127/48 -- -- 58 16 100 % 06/30/25 0953 (!) 112/36 (!) 35.8 ?C (96.5 ?F) Tympanic 58 16 100 % Average, Min, and Max for last 24 hours Vitals: TEMPERATURE: Temp Av ?C (96.8 ?F) Min: 35 ?C (95 ?F) Max: 36.6 ?C (97.9 ?F) RESPIRATIONS RANGE: Resp Av.2 Min: 12 Max: 22 PULSE RANGE: Pulse Av.3 Min: 58 Max: 76 BLOOD PRESSURE RANGE: Systolic (24hrs), Av , Min:97 , Max:137 ; Diastolic (24hrs), Av, Min:36, Max:76 PULSE OXIMETRY RANGE: SpO2 Av.4 % Min: 92 % Max: 100 % I/O last 3 completed shifts: In: 3601.6 (31.1 mL/kg) [P.O.:300; I.V.:1031.6 (8.9 mL/kg); IV Piggyback:2270] Out: - (0 mL/kg) Weight: 115.7 kg CBC: Recent Labs 06/30/25 1003 07/01/25 0119 WBC -- 10.7 HGB 13.0 12.0 HCT 40.6 36.8 PLT -- 245 BMP: Recent Labs 06/30/25 1003 07/01/25 0119 NA 139 133* K 3.4* 4.0 CL 101 104 CO2 24 23 BUN 18 20 CREATININE 0.82 0.71 GLUCOSE 182* 154* Abdomen: The abdomen was soft and appropriately tender postoperative. Nondistended. Incisions c/d/I. Assessment/Plan: Postoperative day #1, LRYGB GI/DVT prophylaxis, continue SQ lovenox UGI this AM Increase activity Trial gastric bypass clear liquid diet if no signs of extravasation or leak on UGI Pulmonary toilet Initiate home medications, and oral pain control medications Anticipate DC home in afternoon if UGI negative and tolerating bariatric CLD later this morning/afternoon WDW attending, Dr. Pamela Stiles MD General Surgery 8:21 AM @DATE@ [1] acetaminophen, 1,000 mg, IntraVENous, 4 times per day enoxaparin, 30 mg, SubCUTAneous, q12h pantoprazole, 40 mg, IntraVENous, Daily scopolamine, 1 patch, TransDERmal, q72h sodium chloride 0.9%, 10 mL, IntraVENous, 2 times per day [2] dextrose 5 % and sodium chloride 0.45 % with KCl 20 mEq/L, 100 mL/hr, Last Rate: 100 mL/hr (07/01/25 0630) lactated Ringer's, 50 mL/hr, Last Rate: 50 mL/hr (06/30/25 0730) [3] PRN medications: albuterol, hydrALAZINE, HYDROmorphone, labetalol, naloxone, ondansetron ODT OR ondansetron, oxyCODONE OR oxyCODONE, [Held by provider] promethazine OR [Held by provider] promethazine OR [Held by provider] promethazine, sodium chloride, sodium chloride 0.9% [4] No Known Allergies PROTHROMBIN TIME Collected: 07/01/2025 1:19 AM Statu s: F Source: [facility] Order Comment: If patient on coumadin within 4 days prior. TYPE CODE TESTS RESULT OUT OF RANGE REFERENCE UNITS LAB [id number] PROTHROMBIN TIME 10.5 9.0-12.0 s LAB [id number] INR 1.0 0.9-1.1 Result Comment: Recommended Anticoagulant Therapy: SEE BELOW ----- INR of [...] to prevent Myocardial Infarction Performed By: #### [id number] ## ## Associate Director Financial Aid: HEATHER NORIEGA ([phone]) [address] CBC (HEMOGRAM) Collected: 07/01/2025 1:19 AM Status: F Source: [facility] TYPE CODE TESTS RESULT OUT OF RANGE REFERENCE UNITS LAB [id number] WBC 10.7 3.6-10.7 10*3/uL LAB 8110907 RBC 4.06 3.80-5.20 10*6/uL LAB [id number] HEMOGLOBIN 12.0 11.7-16.0 g/dL LAB [id number] HEMATOCRIT 36.8 35.0-47.0 % LAB [id number] MCV 90.6 77.0-99.0 fL LAB [id number] MCH 29.6 26.0-34.0 pg LAB [id number] MCHC 32.6 30.5-36.0 % LAB [id number] RDW 13.1 11.5-15.0 % LAB [id number] PLATELET COUNT 245 140-440 10*3/uL LAB [id number] MPV 10.9 9.0-12.7 fL Performed By: #### [id number] ## ## Associate Director Financial Aid: HEATHER NORIEGA ([phone]) [address] BASIC METABOLIC PANEL Collected: 2024 1:19 AM Status: F Source: [facility] TYPE CODE TESTS RESULT OUT OF RANGE REFERENCE UNITS LAB 6180706 SODIUM 133 Low 136-145 mmol/L LAB [id number] POTASSIUM 4.0 3.5-5.1 mmol/L Result Comment: Plasma potas sium values may be up to 0.5 mmol/L lower than serum values. LAB [id number] CHLORIDE 104 98-107 mmol/L LAB [id number] CARBON DIOXIDE 23 23-31 mmol/L LAB [id number] UREA NITROGEN 20 9-23 mg/dL LAB [id number] CREATININE 0.71 0.57-1.11 mg/dL LAB 0697385 GLUCOSE 154 High 82-115 mg/dL LAB [id number] CALCIUM 8.6 Low 8.8-10.0 mg/dL LAB [id number] ANION GAP (JAMES, CALCULATED) 6 3-13 mmol/L LAB [id number] GLOMERULAR FILTRATION RATE ML/MIN/1.73 SQ M.PREDICTED >90.0 >60.0 mL/min/1. 73m*2 Result Comment: Calculation based on the Chronic Kidney Disease Epidemiology Collaboration (CKD-EPI) equation refit without adjustment for race Performed By: #### [id number] ### # Associate Director Financial Aid: HEATHER NORIEGA ([phone]) [facility] ([facility]) [address] [place] [address] NURSING NOTE Observed: 06/30/2025 3:04 PM Status: COMPLETED [facility] Virtual Admission completed. Patient instructed to use call light to call for assistance if needed. NURSING NOTE Observed: 06/30/2025 11:09 AM Status: COMPLETED Source: [facility] Report called to Saray BENITO on H6. Pt's family updated. NURSING NOTE Observed: 06/30/2025 10:46 AM Status: COMPLETED Source: [facility] [employer] [facility] Patients daughter Cyndee zhang via phone [phone] Observed: 06/30/2025 10:30 AM Status: COMPLETED Source: [facility] Patient: Jaime Oneill Procedure Summary Date: 06/30/25 Room / Location: [address] Operating Room Anesthesia Start: 729 Anesthesia Stop: 956 Procedures: LAPAROSCOPIC DIANA-EN-Y GASTRIC BYPASS (Abdomen) LIVER BIOPSY (Abdomen) HIATAL HERNIA REPAIR (Abdomen) Diagnosis: Morbid obesity with BMI of 40.0-44.9, adult ([facility]) Surgeons: Jordon Moore DO Responsible Provider: Jayden Donis MD Anesthesia [...] once all PACU criteria has been met. ANESTHESIA NOTE Observed: 06/30/2025 10:30 AM Status: COMPLETED Source: [employer] [facility] Patient: Jaime Oneill Procedure Summary Date: 06/30/25 Room / Location: [address] Operating Room Anesthesia Start: 729 Anesthesia Stop: 956 Procedures: LAPAROSCOPIC DIANA-EN-Y GASTRIC BYPASS (Abdomen) LIVER BIOPSY (Abdomen) HIATAL HERNIA REPAIR (Abdomen) Diagnosis: Morbid obesity with BMI of 40.0-44.9, adult ([facility]) Surgeons: Jordon Moore DO Responsible Provider: Jayden Donis MD Anesthesia [...] opportunity for questions and acknowledgement of understanding. HEMOGLOBIN AND HEMATOCRIT, BLOOD Collec leatha: 06/30/2025 10:03 AM Status: F Source: [facility] [employer] [facility] TYPE CODE TESTS RESULT OUT OF RANGE REFERENCE UNITS LAB [id number] HEMOGLOBIN 13.0 11.7-16.0 g/dL LAB [id number] HEMATOCRIT 40.6 35.0-47.0 % Performed By: #### [id number] ## ## Associate Director Financial Aid: HEATHER NORIEGA ([phone]) [facility] ([address] BASIC METABOLIC PANEL Collected: 2024 10:03 AM Status: F Source: [employer] [facility] TYPE CODE TESTS RESULT OUT OF RANGE REFERENCE UNITS LAB 9865023 SODIUM 139 136-145 mmol/L LAB 4494400 POTASSIUM 3.4 Low 3.5-5.1 mmol/L Result Comment: Plasma potas sium values may be up to 0.5 mmol/L lower than serum values. LAB 7612599 CHLORIDE 101 98-107 mmol/L LAB 2457989 CARBON DIOXIDE 24 23-31 mmol/L LAB [id number] UREA NITROGEN 18 9-23 mg/dL LAB 2607081 CREATININE 0.82 0.57-1.11 mg/dL LAB 5136569 GLUCOSE 182 High 82-115 mg/dL LAB 6024045 CALCIUM 8.7 Low 8.8-10.0 mg/dL LAB [id number] ANION GAP (JAMES, CALCULATED) 14 High 3-13 mmol/L LAB [id number] GLOMERULAR FILTRATION RATE ML/MIN/1.73 SQ M.PREDICTED 81.5 >60.0 mL/min/1. 73m*2 Result Comment: Calculation based on the Chronic Kidney Disease Epidemiology Collaboration (CKD-EPI) equation refit without adjustment for race Performed By: #### [id number] ### # Associate Director Financial Aid: HEATHER NORIEGA ([phone]) [facility] ([facility]) [address] [place] [address] TISSUE EXAM Collected: 8:41 AM Status: F [facility] TYPE CODE TESTS RESULT OUT OF RANGE REFERENCE UNITS PATHOLOGY 1499 LAB AP CASE REPORT Result Comment: Surgical Pat hology Case: [id number] Authorizing Provider: Jordon Moore DO Collected: 06/30/2025 0841 Ordering Location: [facility] MAIN OR Received: 06/30/2025 1159 Pathologist: Heather Noriega MD Specimen: Liver, LIVER BIOPSY PATHOLOGY 34 LAB AP REPORT FINAL DIAGNOSIS NARRATIVE Result Comment: LIVER, WEDGE BIOPSY: - MILD STEATOSIS, GRADE [...] 0 (negative for fibrosis) Heidy hyaline: negative at 1814 EDT PATHOLOGY 29 LAB AP CLINICAL INFORMATION Result Comment: Morbid obesi ty with BMI of 40.0-44.9, adult (HCC), E66.01, Z68.41. PATHOLOGY [id number] LAB AP HISTO GROSS DESCRIPTION Received in formalin labeled liver biopsy are two rsoe-pink and brown tissue fragments measuring 0.6 and 0.8 cm. The specimen is entirely submitted in one cassette. PATHOLOGY 769 LAB AP ASR DISCLAIMER Result Comment: Disclaimer: The following statement applies to all immunohistochemistry, in situ hybridization, molecular studies, and immunofluorescence testing, if performed on this case. The use of one or more reagents in the above tests is regulated as an analyte specific reagent (ASR). These tests were developed and their performance characteristics determined by the clinical laboratories of [facility]. They have not been cleared by the US Food and Drug Administration (FDA). The FDA has determined that such clearance or approval is not necessary. All immunostains were performed on paraffin embedded tissue. Appropriate positive and negative controls (where applicable) were run in parallel with the patient's specimen; these controls showed expected staining pattern, with acceptable intensity of staining. Immunohistochemical assays have not been validated on decalcified tissues. Results should be interpreted with caution given the raised possibility of false negativity on decalcified specimens. PATHOLOGY 924180 AP CASE PATHOLOGIST INTERP LOCATION [facility], [address] [place] [address], CLIA: [id number]; Joint Commission: [id number]; CAP: [id number] PATHOLOGY EMBDOC OUTGOING CLINICAL RESULTS EMBEDDED DOCUMENT Performed By: #### [id number] # ### Associate Director Financial Aid: HEATHER NORIEGA ([phone]) [facility] ([facility]) [address] [place] [address] PROCEDURE NOTE Observed: 06/30/2025 7:48 AM Status: COMPLETED Source: [facility] Airway Date/Time: 06/30/2025 7:44 AM Reason: scheduled General Information and Staff Patient location during procedure: Procedural Resident/PSYCHOLOGIST CLINICAL: KENTON Mckenna CRNA Performed: PSYCHOLOGIST CLINICAL and SRNA Patient Condition Indications for airway [...] 22 Number of attempts at approach: 1 PROCEDURE NOTE Observed: 06/30/2025 7:36 AM Status: COMPLETED Source: [facility] Peripheral Block Time Out: 06/30/2025 7:36 AM Patient location during procedure: Procedural Start time: 06/30/2025 7:36 AM End time: 06/30/2025 7:36 AM Reason for block: at surgeon's request and post-op pain management Staffing Performed: PSYCHOLOGIST CLINICAL Resident/PSYCHOLOGIST CLINICAL: KENTON Luciano CRNA Preanesthetic Checklist Completed: patient identified, IV checked, site marked, risks and benefits discussed, surgical consent, monitors and equipment checked, pre-op evaluation and timeout performed Region: [place] Primary: TAP (Bupivacaine 0.375%/ Epi 1:200,000/ Dex 0.1mg/mL 40ml divided evenly bilateral) Secondary: Upper rectus (Bupivacaine 0.375%/ Epi 1:200,000/ Dex 0.1mg/mL 20ml divided evenly bilateral) Peripheral Block Patient position: supine Prep: ChloraPrep Patient monitoring: heart rate, filter tank operator, continuous pulse ox and continuous capnometry O2: [...] plane. and Local anesthetic injected without difficultyMedications vqxRERYGveqdm-ztbpzkfcwgk-bpybtgnftur (TAP) syringe - Injection 60 mL - 06/30/2025 7:36:00 AM OP NOTE Observed: 06/30/2025 7:32 AM Status: COMPLETED Source: [facility] Patient: Jaime Oneill Date of : 1965 Service Date: 06/30/25 PROCEDURE: Laparoscopic Diana-en-Y Gastric Bypass Laparoscopic Liver Biopsy Esophagogastrojejunoscopy Laparoscopic hiatal hernia PREOPERATIVE DIAGNOSES: Problem List[1] POSTOPERATIVE DIAGNOSES: same ANESTHESIA: General SURGEON: DR. Jordon Moore RESIDENT ASSISTANT CNA: Dr. Becker was asked to help with this advanced laparoscopic case since there weren't any residents available to assist. FLUIDS: 1000 cc crystalloid ESTIMATED BLOOD LOSS: 10 cc URINE OUTPUT: Not recorded. PREOPERATIVE MEDICATIONS: Ancef INDICATIONS FOR PROCEDURE: The patient is a 59 y.o. female with morbid obesity and a Body mass index is 42.43 kg/m?.. She has completed medical risk stratification and is scheduled for Laparoscopic Diana-en-Y gastric bypass and laparoscopic liver biopsy. CONSENT: The patient was seen and evaluated in the office setting where the procedure was explained to the patient and all questions were answered. An informed consent discussion was held between Dr. Moore and the patient. Viable alternatives to the proposed procedure, including but not limited to, medical observation under the care of a physician, exercise programs and other weight reductive operative procedures were explained to the patient. Risks to the proposed procedure, including but not limited to hemorrhage requiring transfusion, infection, nerve injury, conversion to open, anastomotic disruption, anastomotic stricture, pneumonia, pulmonary embolus, airway complications, and were explained to the patient. Additionally, we discussed that sometimes a gastric bypass cannot be safely completed due to intraoperative factors and a conversion to a sleeve gastrectomy or complete of a definitive surgical procedure altogether may be necessary. The patient understands the above alternatives and risks and has electively chosen laparoscopic gastric bypass with diana-en-y reconstruction and wishes to proceed. TECHNIQUE: The patient was taken to the operating room and placed in the supine position. After successful induction of general endotracheal anesthesia by the anesthesia department, an orogastric tube was placed to decompress the stomach. The patient was placed in the split leg lithotomy position and care was taken to pad the exposed extremities. The patient's abdomen was prepped and draped in the normal sterile fashion with chlorhexidine which was allowed to dry for three minutes prior to draping. A 12 mm optical entry trocar was used to enter the left upper quadrant at Palmers point. We then placed a 12 mm trocar infraumbilically, 12 mm trocar in the left lower quadrant and a 12 mm trocar in the right mid abdominal 12 mm trocar all under direct visualization. We then placed a 12 mm trocar in the epigastric area for the camera. A stab incision was then made in the sub xyphoid region and a liver retractor was inserted and the liver gently retracted towards the anterior abdominal wall. After ports were placed we confirmed the hiatal hernia that had been pre operatively with EGD identified causing GERD. The pars flaccida was incised and the right austyn of the diaphragm exposed. Circumferential dissection of the esophagus was completed into the inferior mediastinum. There were a HH again confirmed. The inferior mediastinal attachments to the esophagus were mobilized using Enseal device until we were able to achiever 4-5 cm of intra abdominal esophagus. 0 Surgidac sutures were then used to close the crural defect. We began with creating the small gastric pouch. The lesser sac was entered at the pars flacida and the posterior aspect of the stomach was visualized and there were no adhesions. At this point we released our retraction on the stomach and measured five to seven centimeters from the angle of His along the lesser curvature. We utilized the perigastric technique to enter the lesser sac, sparing the gastric vessel branches and the descending nerve branch. We confirmed that there were no foreign objects in the stomach with the anesthesia team. A 60-mm KUNAL stapler with a blue load was used to transect across the stomach in a horizontal fashion. A endo KUNAL was then used to proceed in a cephalad direction toward the shruti of his. A rent was made in the end of the gastric pouch and an opening was also made in gastric remnant laterally to introduce the Anvil. The anvil was brought out through the end of the gastric pouch. The opening in the gastric remnant was then closed with Endo KUNAL. We then elevated the transverse colon and split the omentum with Enseal when necessary - in this case it was. We ran the biliopancreatic limb 80 cm. A silk suture was placed at this location. WE then elevated the small bowel up to the small gastric pouch being careful not to twist the mesentery. A rent was then created in the small bowel mesentery and the small bowel was cut with endo KUNAL. We then opened end of the diana limb with Enseal and a 25MM circular stapler was inserted to create a circular 25 mm EEA end to side gastrojejunostomy. Multiple 3-0 vicryl sutures were then used to reinforce the gastrojejunostomy. Another white load Endo KUNAL was used to close the end of the diana limb. We then ran 130 cm of small bowel and this limb was brought up to the BPL to create a side to side triple stapled jejunojejunostomy. 3-0 silk suture was used to stitch the limbs together to align the anastomosis. Clips were placed a the anastomosis for marking. 2-0 Vlock was then used to close the mesenteric defect. A 2-0 Vlock was then used to close May's defect. Lastly, a 3-0 Vicryl was used to secure the diana limb to the gastric remnant to prevent twisting. Upper GI endoscopy was performed in order to evaluate the integrity of the anastomosis. The Olympus gastroscope was introduced through the mouth, through the esophagus and into the small gastric pouch. The anastomosis was widely patent. The lateral gastric staple line and gastrojejunal anastomosis were hemostatic. The scope easily passed through the anastomosis into the jejunum. The anastomosis was submerged under irrigation and there was no evidence of air extravasation or bubbling at the gastrojejunostomy. Air was removed from the intestine and the scope was removed without incident. The liver had an enlarged appearance as well as a grossly abnormal appearance. For this reason, a liver biopsy was performed with a laparoscopic wedge liver biopsy forceps. We sent twopieces to pathology for permanent sectioning. Bovie electrocautery was used to obtain hepatic hemostasis. We then removed the trocars under visualization and evacuated the pneumoperitoneum. 0 Vicryl was then used to close the infraumbilical port site along with the left sided port site. The left sided wound was copiously irrigated and hemostasis achieved. The lateral port was closed partly with 4-0 Monocryl and then a section of wound packing was then placed into the wound. The skin was closed using 4-0 Monocryl in an interruped subcuticular fashion. Steri-Strips were applied to the wounds, the patient was awakened from anesthesia, extubated and taken to recovery in stable condition. The sponge, needle, and instrument counts were correct. 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 [] Yes [x] No Was the case aborted? [] Yes [x] No Was a drain placed at the time of the initial operation? [] Yes [x] No Was a swallow study performed the day of or the day after the procedure? [x] Yes [] No Was the anastomotic/staple line checked with a provocative test to assess for leak? [x] Yes [] No Was this a stapling procedure: [x] Yes [] No Other Procedures: EGD Liver Biopsy Hiatal hernia [1] Patient Active Problem List Diagnosis Thoracic compression fracture, closed, initial encounter (HCC) Thoracic compression fracture (HCC) Morbid obesity, unspecified obesity type (HCC) Hypothyroidism GERD (gastroesophageal reflux disease) Major depressive disorder Morbid obesity with BMI of 40.0-44.9, adult (HCC) Obesity, morbid, BMI 40.0-49.9 (HCC) H/O gastric bypass HISTORY AND PHYSICAL NOTE Observed: 06/30/2025 7:16 AM Status: COMPLETED Source: [facility] H&P reviewed. The patient wa s examined and there are no changes to the H&P. CBC (HEMOGRAM) Collected: 06/22/2025 2:49 PM Status: F Source: [facility] TYPE CODE TESTS RESULT OUT OF RANGE REFERENCE UNITS LAB 0000129 WBC 8.7 3.6-10.7 10*3/uL LAB [id number] RBC 4.24 3.80-5.20 10*6/uL LAB [id number] HEMOGLOBIN 12.6 11.7-16.0 g/dL LAB [id number] HEMATOCRIT 38.6 35.0-47.0 % LAB [id number] MCV 91.0 77.0-99.0 fL LAB [id number] MCH 29.7 26.0-34.0 pg LAB 1657008 MCHC 32.6 30.5-36.0 % LAB [id number] RDW 12.8 11.5-15.0 % LAB [id number] PLATELET COUNT 238 140-440 10*3/uL LAB [id number] MPV 10.7 9.0-12.7 fL Performed By: #### HNS225 ## ## Associate Director Financial Aid: HEATHER NORIEGA ([phone]) [facility] ([address] BASIC METABOLIC PANEL Collected: 2024 2:49 PM Status: F Source: [facility] TYPE CODE TESTS RESULT OUT OF RANGE REFERENCE UNITS LAB [id number] SODIUM 140 136-145 mmol/L LAB [id number] POTASSIUM 4.1 3.5-5.1 mmol/L Result Comment: Plasma potas sium values may be up to 0.5 mmol/L lower than serum values. LAB [id number] CHLORIDE 104 98-107 mmol/L LAB [id number] CARBON DIOXIDE 30 23-31 mmol/L LAB [id number] UREA NITROGEN 19 9-23 mg/dL LAB [id number] CREATININE 0.86 0.57-1.11 mg/dL LAB [id number] GLUCOSE 79 Low 82-115 mg/dL LAB [id number] CALCIUM 9.7 8.8-10.0 mg/dL LAB [id number] ANION GAP (JAMES, CALCULATED) 6 3-13 mmol/L LAB [id number] GLOMERULAR FILTRATION RATE ML/MIN/1.73 SQ M.PREDICTED 77.0 >60.0 mL/min/1. 73m*2 Result Comment: Calculation based on the Chronic Kidney Disease Epidemiology Collaboration (CKD-EPI) equation refit without adjustment for race Performed By: #### TEA BRYANT5 #### Associate Director Financial Aid: HEATHER NORIEGA ([phone]) [address] ALBUMIN Collected: 2:49 PM Status: F Source: [facility] TYPE CODE TESTS RESULT OUT OF RANGE REFERENCE UNITS LAB [id number] ALBUMIN 4.0 3.4-4.8 g/dL Performed By: #### TEA BRYANT B45 #### Associate Director Financial Aid: HEATHER NORIEGA ([phone]) [facility] ([facility]) [address] [place] [address] HEMOGLOBIN A1C Collected: 06/22/2025 2:49 PM Status: F Source: [facility] TYPE CODE TESTS RESULT OUT OF RANGE REFERENCE UNITS LAB [id number] HEMOGLOBIN A1C 5.4 <5.7 %HbA1C Result Comment: Normal less than 5.7% Prediabetes 5.7% to 6.4% Diabetes 6.5% or higher --HgbA1C levels may not be accurate in patients who have renal disease, received recent blood transfusions, are anemic, or who have dyshemoglobinemia. LAB [id number] ESTIMATED AVERAGE GLUCOSE 108 mg/dL Result Comment: ORDER COMMEN TS: HbA1c values of 5.7-6.4 percent indicate an increased risk for developing diabetes mellitus. HbA1c values greater than or equal to 6.5 percent are diagnostic of diabetes mellitus. For diagnosis of diabetes in individuals without unequivocal hyperglycemia, results should be confirmed by repeat testing. Performed By: #### LAB90 ### # Associate Director Financial Aid: HEATHER NORIEGA ([phone]) [facility] ([facility]) [address] ANESTHESIA NOTE Observed: 06/22/2025 2:17 PM Status: COMPLETED Source: [facility] Patient: Jaime Oneill Procedure Information Date/Time: 06/30/25 0730 Procedures: LAPAROSCOPIC DIANA-EN-Y GASTRIC BYPASS (Abdomen) - Length of procedure: 180min LIVER BIOPSY (Abdomen) HIATAL HERNIA REPAIR, POSSIBLE OPEN (Abdomen) Location: [facility] [address] [place] [address] Operating Room Surgeons: Jordon Moore, DO Relevant Problems Endo (+) Hypothyroidism GI [...] protocol. General eras Rin Benitez APRN - TANK HOUSE OPERATOR HELPER MICHELLE Screening STOP-Bang Total Score: 4 Labs: [...] May sterlin High Blood Pressure Mother May sterlin Obesity Father Jason Josue Diabetes Father Jason Josue High Blood Pressure Father Jason Josue Heart disease Father Jason Josue Stroke Father Jason Josue Heart disease Sister Zaynab Potts Obesity Sister Zaynab Delroy Heart disease Brother Jason High Blood Pressure Brother Jason PROGRESS NOTE Observed: 06/22/2025 2:00 PM Status: COMPLETED Source: [facility] [employer] Jaime Oneill : 1965 Primary Care Physician: KELL LAWLER MD The patient and/or family/surrogate voluntarily agreed to participate in ACP services. Patient?s cognitive capacity: The patient is alert and oriented to person, place, time, and situation. Patient has decision making capacity. Code Status: [x] [FULL CODE - Continue all advanced life support: CPR,intubation,invasive procedures] [_] [DNR-CCA - DO NOT do CPR, intubation] [_] [DNR-PARKING SUPERVISOR - Comfort care only] [_] DNR form [...] patient and/or family/surrogate. Lorena Griffith APRN - [facility] Acute care [facility] 06/22/2025, 3:36 PM HISTORY AND PHYSICAL NOTE Observed: 06/11 2:00 PM Status: COMPLETED Source: [facility] Comprehensive Pre Surgical H istory and Physical ? Name: Jaime Oneill : 1965 (Age-59 y.o.) Date of Service: Pt seen/examined on 06/22/2025 Procedure Information Date/Time: 06/30/25 2630 Procedures: LAPAROSCOPIC DIANA-EN-Y GASTRIC BYPASS (Abdomen) - Length of procedure: 180min LIVER BIOPSY (Abdomen) HIATAL HERNIA REPAIR, POSSIBLE OPEN (Abdomen) Location: [facility] Operating Room Surgeons: Jordon Moore DO Chief Complaint: Morbid obesity with BMI [...] 03/17/25 Eval 03/02/25. Dietitian [x] Dashawn Workman Learning Solutions Specialist Cleared: 02/25/25 Cardiology [x] Jf Irwin APRN [...] who we are asked to see/evaluate by [place] [id number] for pre-operative evaluation prior to ? LAPAROSCOPIC DIANA-EN-Y GASTRIC BYPASS (Abdomen) - Length of procedure: 180min LIVER BIOPSY (Abdomen) HIATAL HERNIA REPAIR, POSSIBLE OPEN (Abdomen) From last office visit with Dr. Moore on 06/07/2025: The patient is a 59 [...] denies hx of CAD, Cardiac stents, CHF, MO, TIA/CVA, diabetes, COPD, asthma, MICHELLE, DVT/PE or [...] LAST TAKEN ON 06/19/25 Yes Historical ProviderMD pantoprazole (ProtoNix) 40 MG EC tablet Take [...] Time BP 108/82 06/22/25 14:04 Temp 36.2 ?C (97.2 ?F) 06/22/25 14:04 Pulse 91 06/22/25 14:04 Resp [...] Electronically signed by: Lorena Griffith APRN - TANK HOUSE OPERATOR HELPER Date: 06/22/2025 at 3:36 PM [1] Family [...] Brother Jason High Blood Pressure Brother Jason HISTORY AND PHYSICAL NOTE Observed: 06/11 2:00 PM Status: COMPLETED Source: [facility] Comprehensive Pre Surgical H istory and Physical ? Name: Jaime Oneill : 1965 (Age-59 y.o.) Date of Service: Pt seen/examined on 06/22/2025 Procedure Information Date/Time: 06/30/25 0730 Procedures: LAPAROSCOPIC DIANA-EN-Y GASTRIC BYPASS (Abdomen) - Length of procedure: 180min LIVER BIOPSY (Abdomen) HIATAL HERNIA REPAIR, POSSIBLE OPEN (Abdomen) Location: [facility] Operating Room Surgeons: Jordon Pozsgay, DO Chief Complaint: Morbid obesity with BMI of 40.0-44.9, adult ([facility]) [E66.01, Z68.41] ASSESSMENT/PLAN: Plan based on PAT protocol for this intermediate level 2 risk procedure/surgery. Based on the below evaluation, the benefits of the planned procedure likely exceed the risks. The patient is medically optimized to proceed with the planned procedure without any further cardiopulmonary testing. 1) Morbid obesity with BMI of 40.0-44.9, adult ([facility]) [E66.01, Z68.41] - Managed per surgery - [...] 03/17/25 Eval 03/02/25. Dietitian [x] Dashawn Workman Learning Solutions Specialist Cleared: 02/25/25 Cardiology [x] Jf Irwin FLIGHT INSTRUCTOR Cleared 04/08/25 Pulmonary [x] Mele 02/19/25 Referred [...] who we are asked to see/evaluate by [facility] FRANKI for pre-operative evaluation prior to ? LAPAROSCOPIC DIANA-EN-Y GASTRIC BYPASS (Abdomen) - Length of procedure: 180min LIVER BIOPSY (Abdomen) HIATAL HERNIA REPAIR, POSSIBLE OPEN (Abdomen) From last office visit with Dr. Moore on 06/07/2025: The patient is a 59 [...] denies hx of CAD, Cardiac stents, CHF, MO, TIA/CVA, diabetes, COPD, asthma, MICHELLE, DVT/PE or [...] History: 2004: CHOLECYSTECTOMY 2006: HYSTERECTOMY Comment: partial Medications Prior [...] LAST TAKEN ON 06/19/25 Yes Historical ProviderMD Calcium Carbonate (CALCIUM 600 PO) Take 1 [...] Time BP 108/82 06/22/25 14:04 Temp 36.2 ?C (97.2 ?F) 06/22/25 14:04 Pulse 91 06/22/25 14:04 Resp [...] Electronically signed by: Lorena Griffith APRN - TANK HOUSE OPERATOR HELPER Date: 06/22/2025 at 3:36 PM [1] Family History Problem Relation Name Age of Onset Obesity Mother May sterlin Diabetes Mother May sterlin High Blood Pressure Mother May sterlin Obesity Father Jason Josue Diabetes Father Jason Josue High Blood Pressure Father Jason Josue Heart disease Father Jason Josue Stroke Father Jason Josue Heart disease Sister Zaynab Potts Obesity Sister Zaynab Potts Heart disease Brother Jason High Blood Pressure Brother Jason [id number] Observed: 06/22/2025 2:00 PM Status: COMPLETED Source: [facility] Medication List Accurate as of June 22, [...] any instructions given to you by Dr. MOORE Shower with an antibacterial soap such as [...] your scheduled surgery time. Please bring your [employer] [facility] folder and medication list with you day of surgery. We encourage you to write down any questions you may have for the surgeon, anesthesiologist, or other members of the surgical team and bring it with you the day of surgery. Please bring photo ID and insurance information. 36 Observed: 06/07/2025 9:58 AM Status: COMPLETED Source: [facility] No lovenox indicated DVT PPX Risk Factors [...] [] 40 mg Lovenox BID [] 60 PROGRESS NOTE Observed: 06/07/2025 9:10 AM Status: COMPLETED Source: [facility] Patient History/Assessment S shon: The patient is a 59 y.o. year [...] 03/17/25 Eval 03/02/25. Dietitian [x] Dashawn Workman Learning Solutions Specialist Cleared: 02/25/25 Cardiology [x] Jf Irwin APRN [...] Laterality Date CHOLECYSTECTOMY 2004 HYSTERECTOMY 2006 partial PROGRESS NOTE Observed: 06/07/2025 9:10 AM Status: COMPLETED Source: [facility] DOS: 06/30/25 Procedure: RYGB PAT Date: 06/22/25 [...] a support person to stay with them 24/ after discharge from the hospital? yes granddaughter [...] post-op vitamins are listed in education manual. OFFICE VISIT Observed: 06/07/2025 9:10 AM Status: COMPLETED Source: [facility] [id number] Jaime Oneill F Date Provider Department Center 06/07/2025 [id number] MOORE [facility] SUR[facility] None Family History Problem Relation Age of Onset Obesity Mother Diabetes Mother High Blood Pressure Mother Obesity Father Diabetes Father High Blood Pressure Father Heart disease Father Stroke Father Heart disease Sister Obesity Sister Heart disease Brother High Blood Pressure Brother Family Status - Relation Status Age at Mother Alive Father Sister Alive Brother Alive Level of Service:[id number] ME OFFICE/OUTPATIENT ESTABLISHED MOD MDM 30 MIN Reason for Visit and Comments: Weight Management [645] - FPOV 36 Observed: 05/25/2025 9:54 AM Status: COMP LETED Source: [facility] [employer] [facility] Orders signed 36 Observed: 05/25/2025 8:41 AM Status: COMPLETED [facility] Noted, thank you. 36 Observed: 05/25/2025 7:08 AM Status: COMPLETED Source: [facility] [employer] [facility] Noted, thank you. 36 Observed: 05/24/2025 3:37 PM Status: COMPLETED Source: [facility] [employer] [facility] SURGERY SCHEDULED AND PATIEN T NOTIFIED Surgeon: PAMELA Procedure: LRYGB W/ HH Surgery Date: 06/30/25 Surgery Time: 730AM Time Needed: 180MINS FPOV Date: 06/07/25 Time: 910AM 1WK POP Date: 07/05/25 Time: 840AM 1M POP Date: 08/02/25 Time: 1000AM Patient aware of required pre-operative class and instructed to sign up via website: YES 36 Observed: 05/24/2025 11:34 AM Status: COMPLETED Source: [facility] [employer] [facility] Please schedule surgery for 06/30/25, order placed. 36 Observed: 05/24/2025 10:08 AM Status: COMPLETED [facility] Patient takes Anticoagulant: NO Name: Prescriber: Patient takes SGLT-2 Inhibitor: NO INVOKANA- canagliflozin JARDIANCE-empagliflozin STEGLATRO - ertugliflozin BRENZAVVY - bexagliflozin FARXIGA- dapagliflozin - If taking, is it used for Heart Failure: Patient assigned female at taking control that contains Estrogen: NO Difficult IV: NO Pain Management Provider: NO Support Person: ADULT GRANDDAUGHTER Date Restrictions for Surgery: NONE 36 Observed: 05/24/2025 9:48 AM Status: COMPLETED [facility] Auth APPROVED: Yes Approved for: inpatient Insurance: [employer] ID number: [id number] Authorization number: [id number] Valid dates: 06/22/2025 - 08/18/2025 Notes: INPATIENT AUTH APPROVAL FOR CPT 18091, 98015, 54855 / SCANNED TO MEDIA 36 Observed: 05/20/2025 10:22 AM Status: COMPLETED [facility] Noted, thank you. 36 Observed: 05/20/2025 9:30 AM Status: COMPLETED Source: [facility] [employer] [facility] Auth submitted: Yes Insurance: [employer] MEDICARE ID number: [id number] Notes: INPATIENT AUTH REQUESTED FOR CPT 20100, 50558, 47852 PENDING AUTH # [id number] 36 Observed: 05/11/2025 11:44 AM Status: COMPLETED [facility] Lap Diana En Y and Liver Bx w /HH In CCN 36 Observed: 05/11/2025 11:18 AM Status: COMPLETED Source: [facility] [employer] [facility] She is good to go now! ?? Me dacia was able to move her money, so she can be scheduled. Abdulaziz Valderrama Tobacco Classer - Weight Management Ins BNA money was applied to incorrect account- Billing fixed it on 05/11/25 36 Observed: 05/11/2025 11:14 AM Status: COMPLETED Source: [facility] Ready for submission. Thank you. Nicotine is scanned with chart review- I faxed to 260 today. 29 Observed: 04/27/2025 9:39 AM Status: COMPLETED Source: [facility] Addended by: EMI RAMIREZ on: 04/27/2025 09:39 AM Modules accepted: Orders 29 Observed: 04/27/2025 8:22 AM Status: COMPLETED Source: [facility] Addended by: SALO CRUZ on: 04/27/2025 08:22 AM Modules accepted: Orders 36 Observed: 04/27/2025 8:21 AM Status: COMP LETED Source: [facility] Mendoza please [id number] Observed: 04/22/2025 11:41 AM Status: COMPLETED Source: [facility] Results reviewed and CCN upd ated [id number] Observed: 04/22/2025 10:30 AM Status: COMPLETED Source: [facility] Results received, placed in physician folder for review. PROGRESS NOTE Observed: 04/08/2025 1:40 PM Status: COMPLETED Source: [facility] PRE-OP MEDICAL MANAGEMENT PROGRESS [...] Morbid obesity with BMI of 40.0-44.9, adult ([facility]) 2. Gastroesophageal reflux disease without esophagitis Plan: [...] for next visit and additional scheduling orders OFFICE VISIT Observed: 04/08/2025 1:40 PM Status: COMPLETED Source: [facility] [employer] [facility] [id number] Jaime Oneill Date Provider Department Center 04/08/2025 [id number]-OVUPBJULIANA WRAY*ACH [facility] None Family History Problem Relation Age of Onset Obesity Mother Diabetes Mother High Blood Pressure Mother Obesity Father Diabetes Father High Blood Pressure Father Heart disease Father Stroke Father Heart disease Sister Obesity Sister Heart disease Brother High Blood Pressure Brother Family Status - Relation Status Age at Mother Alive Father Sister Alive Brother Alive Level of Service:49275 ME OFFICE/OUTPATIENT ESTABLISHED [facility] 10 MIN Reason for Visit and Comments: Weight Management [645] - D/E FINAL 3 OF 3 OFFICE VISIT Observed: 04/08/2025 10:30 AM Status: COMPLETED Source: [facility] [id number] Jaime Oneill [birth year] Date Provider Department Center 04/08/2025 [id number] QUIROZ [facility] SH[facility] [address] Family History Problem Relation Age of Onset Obesity Mother Diabetes Mother High Blood Pressure Mother Obesity Father Diabetes Father High Blood Pressure Father Heart disease Father Stroke Father Heart disease Sister Obesity Sister Heart disease Brother High Blood Pressure Brother Family Status - Relation Status Age at Mother Alive Father Sister Alive Brother Alive Level of Service:34169 ME OFFICE/OUTPATIENT NEW LOW MDM 30 MINUTES Reason for Visit and Comments: Cardiac Clearance [882] PROGRESS NOTE Observed: 04/08/2025 10:30 AM Status: COMPLETED Source: [facility] [address] [facility] [address] Dept: [phone] Dept Visit Type: New NAME: Jaime Oneill [...] decrease the likelihood of future cardiovascular events. [facility] -[facility]iology At [facility] [place] remain available to assist in the patient's [...] , Rfl: cholecalciferol (Vitamin D-3) 250 MCG (08693 UT) tablet, Take 10,000 Units by mouth [...] Heart disease Brother High Blood Pressure Brother [id number] Observed: 03/25/2025 2:37 PM Status: COMPLETED Source: [facility] Patient: Jaime Oneill Procedure Summary Date: 03/25/25 Room / Location: [facility] ARCH ENDO SEC 3 / ARCH Gastroenterology Anesthesia Start: 1417 Anesthesia Stop: 143 Procedure: ESOPHAGOGASTRODUODENOSCOPY, WITH BIOPSY Diagnosis: Gastro-esophageal reflux disease without esophagitis Providers: Jordon Moore DO Responsible Provider: Santiago Diehl MD Anesthesia [...] once all PACU criteria has been met. ANESTHESIA NOTE Observed: 03/25/2025 2:36 PM Status: COMPLETED Source: [facility] Patient: Jaime Oneill Procedure Summary Date: 03/25/25 Room / Location: [facility] ARCH ENDO SEC 3 / ARCH Gastroenterology Anesthesia Start: 1417 Anesthesia Stop: Procedure: ESOPHAGOGASTRODUODENOSCOPY, WITH BIOPSY Diagnosis: Gastro-esophageal reflux disease without esophagitis Providers: Jordon Moore DO Responsible Provider: Santiago Diehl MD Anesthesia [...] opportunity for questions and acknowledgement of understanding. TISSUE EXAM Collected: 2:31 PM Status: F Source: [facility] [employer] [facility] [employer] TYPE CODE TESTS RESULT OUT OF RANGE REFERENCE UNITS PATHOLOGY 1499 LAB AP CASE REPORT Result Comment: Surgical Pat hology Case: [id number] Authorizing Provider: Jordon Moore DO Collected: 03/25/2025 1431 Ordering Location: [facility] Arch Endoscopy Received: 03/26/2025 0835 Pathologist: Nithin Butts MD Specimen: Gastric Antrum, biopsy, R/O H.P. PATHOLOGY 34 LAB AP REPORT FINAL DIAGNOSIS NARRATIVE Result Comment: STOMACH, BIO PSY: - MILD CHRONIC INACTIVE GASTRITIS WITH MILD INTESTINAL METAPLASIA Comment: There is no evidence of dysplasia or malignancy. The H&E stain shows no evidence of Helicobacter pylori. at 0936 EDT PATHOLOGY 29 LAB AP CLINICAL INFORMATION Gastro-esopha geal reflux disease without esophagitis - K21.9 [ICD-10-CM] PATHOLOGY 1650405 LAB AP HISTO GROSS DESCRIPTION Received in formalin labeled antrum biopsy, rule out HP is a 0.8 cm rose soft tissue fragment which is submitted in one cassette. PATHOLOGY 769 LAB AP ASR DISCLAIMER Result Comment: Disclaimer: The following statement applies to all immunohistochemistry, in situ hybridization, molecular studies, and immunofluorescence testing, if performed on this case. The use of one or more reagents in the above tests is regulated as an analyte specific reagent (ASR). These tests were developed and their performance characteristics determined by the clinical laboratories of [facility]. They have not been cleared by the US Food and Drug Administration (FDA). The FDA has determined that such clearance or approval is not necessary. All immunostains were performed on paraffin embedded tissue. Appropriate positive and negative controls (where applicable) were run in parallel with the patient's specimen; these controls showed expected staining pattern, with acceptable intensity of staining. Immunohistochemical assays have not been validated on decalcified tissues. Results should be interpreted with caution given the raised possibility of false negativity on decalcified specimens. PATHOLOGY EMBDO OUTGOING CLINICAL RESULTS EMBEDDED DOCUMENT Performed By: #### [id number] # ### Associate Director Financial Aid: HEATHER NORIEGA ([phone]) [facility] ([facility]) [address] [place] [address] HISTORY AND PHYSICAL NOTE Observed: 03/11 2:23 PM Status: COMPLETED Source: [facility] General Surgery History and Physical HPI: Jaime [...] Blood Pressure Brother [4] No Known Allergies ANESTHESIA NOTE Observed: 03/25/2025 2:15 PM Status: COMPLETED Source: [employer] [facility] Patient: Jaime Oneill Procedure Information Date/Time: 03/25/25 1345 Procedure: ESOPHAGOGASTRODUODENOSCOPY, WITH BIOPSY - 20MINS Location: [facility] [address] [facility] ENDO SEC 3 / ARCH Gastroenterology Providers: Jordon Moore DO Relevant Problems Endo (+) Hypothyroidism GI [...] Heart disease Brother High Blood Pressure Brother OP NOTE Observed: 03/25/2025 2:02 PM Status: COMPLETED Source: [facility] Patient Name: Jaime Oneill Procedure Date: 03/25/2025 2:02 PM Gender: Female Date of : 1965 Age: 59 Admit Type: Outpatient Note Status: Finalized Endoscopist: Jordon Moore DO, [id number] Procedure: Upper GI endoscopy Indications: Gastro-esophageal reflux [...] immediate complications. Procedure Code(s): --- Professional --- 42508, Esophagogastroduodenoscopy, flexible, transoral; with biopsy, single or multiple --- Technical --- 60782, Esophagogastroduodenoscopy, flexible, transoral; with biopsy, single or multiple Diagnosis Code(s): --- Professional --- K29.70, Gastritis, unspecified, without bleeding K44.9, Diaphragmatic hernia without obstruction or gangrene K21.9, Gastro-esophageal reflux disease without esophagitis --- Technical --- K29.70, Gastritis, unspecified, without bleeding K44.9, Diaphragmatic hernia without obstruction or gangrene K21.9, Gastro-esophageal reflux disease without esophagitis CPT copyright 2021 [employer]. All rights reserved. The codes documented in this report are preliminary and upon certified prosthetist/orthotist review may be revised to meet current compliance requirements. Attending Participation: I personally performed the entire procedure. Jordon Moore DO 03/25/2025 2:33:42 PM This report has been signed electronically. Number of Addenda: 0 Note Initiated On: 03/25/2025 2:02 PM 36 Observed: 03/17/2025 8:35 AM Status: COMPLETED Source: [facility] Patient had informed that e was established at [facility]- clearance form faxed. They responded not a patient. Spoke with patient again. She cannot remember exactly where she went before it's been years. She will schedule with [facility]. Phone number provided. 36 Observed: 03/15/2025 11:19 AM Status: COMPLETED Source: [facility] Patient call back- she goes to [facility]- clearance request faxed 36 Observed: 03/15/2025 9:09 AM Status: COMPLETED Source: [facility] Spoke to patient. She someho w thought she had to have UGI BEFORE the EGD and that was what was worrying her. I assured her it was fine to schedule the UGI on April 19. She states she will call me back with name of her Fight Manager so I can fax a clearance request. 36 Observed: 03/15/2025 8:58 AM Status: COMPLETED Source: [facility] Left another for patient requesting ret call. 36 Observed: 03/11/2025 4:23 PM Status: COMPLETED Source: [facility] Left VM to call me at direct line. Unsure what the confusion/question is. 36 Observed: 03/11/2025 1:10 PM Status: COMPLETED Source: [facility] MP Pt last seen yesterday w [facility] for D&E 2/3. Pt called and left message that the soonest she can get UGI done at [facility] is 04/19/25. [facility]-does she need to try another location or just wait and have a 4th D&E in April? 36 Observed: 03/11/2025 12:42 PM Status: COMPLETED Source: [facility] Order for recheck signed. 36 Observed: 03/11/2025 8:49 AM Status: COMPLETED Source: [facility] Pre-op patient Mycharted pt regarding high vitamin D (77). Rec'd pt stop taking 10,000 IU vitamin D daily for now and will recheck lab in three months. 36 Observed: 03/11/2025 8:32 AM Status: COMPLETED Source: [facility] ----- Message from Trish Tran APRN - [employer] OPERATOR HELPER sent at 03/10/2025 12:58 PM EDT ----- Vit D is elevated - thanks THYROID STIMULATING HORMONE Collected: 03/10/2025 10: 01 AM Status: F Source: [facility] Order Comment: These orders are set for an approximate date - they can be drawn up to 3 months prior to the Expected Date on this Req. Please send results to: KELL LAWLER MD - [address] [address] - [phone] And if not done at a [facility], please send to: [facility] - [address] [place] [address], [address] [facility], [address] Patient Name: Jaime Oneill - 1965 Order Created by : Mattie Brady LPN TYPE CODE TESTS RESULT OUT OF RANGE REFERENCE UNITS LAB [id number] THYROID STIMULATING HORMONE 0.45 0.35-4.94 uIU/mL Performed By: #### [id number], L AB129, LAB94 #### Associate Director Financial Aid: HEATHER NORIEGA ([id number]) [facility] ([facility]) [address] IRON Collected: 10:01 AM Status: F Source: [facility] Order Comment: These orders are set for an approximate date - they can be drawn up to 3 months prior to the Expected Date on this Req. Please send results to: KELL LAWLER MD - [address] [place] [address] [facility] [id number] - [phone] And if not done at a [facility], please send to: [address] [address] Patient Name: Jaime Oneill 1965 Order Created by : Mattie Brady LPN TYPE CODE TESTS RESULT OUT OF RANGE REFERENCE UNITS LAB [id number] IRON, TOTAL 81 50-170 ug/dL Performed By: #### [id number], L AB129, LAB94 #### Associate Director Financial Aid: HEATHER NORIEGA ([id number]) [facility] ([facility]) [address] VITAMIN D DEFICIENCY SCREENI NG (VIT D 25) Collected: 03/10/2025 10:01 AM Status: F Source: [facility] TYPE CODE TESTS RESULT OUT OF RANGE REFERENCE UNITS LAB [id number] VIT D 25-OH, TOTAL 77 High See comment ng/mL Result Comment: ORDER COMMEN TS: These orders are set for an approximate date - they can be drawn up to 3 months prior to the Expected Date on this Req. Please send results to: KELL LAWLER MD - [address] [place] [address] [facility] [id number] - [phone] And if not done at a [facility], please send to: [address], [address] Patient Name: Jaime Oneill - 1965 Order Created by : Mattie Brady LPN Target concentration: 30 - 40 ng/mL; toxicity seen at concentrations >100 ng/mL Less than 20 ng/mL: Indicative of Vit D deficiency Test performed by Vudu, measuring Total Vitamin D, not individual fractions. Performed By: #### [id number], L AB129, LAB94 #### Associate Director Financial Aid: HEATHER NORIEGA ([id number]) [facility] ([facility]) [address] [place], [place] [id number] [place] [address] ZINC (BKR QUEST) Collected: 10:01 AM Status: F Source: [facility] Order Comment: These orders are set for an approximate date - they can be drawn up to 3 months prior to the Expected Date on this Req. Please send results to: KELL LAWLER MD - [address] [address] - [phone] And if not done at a [facility], please send to: [facility] - [address] [place] [address], [address] [place] [address], [address] Patient Name: Jaime Oneill - 1965 Order Created by : Mattie Brady LPN TYPE CODE TESTS RESULT OUT OF RANGE REFERENCE UNITS LAB [address] ZINC 82 60-130 mcg/dL Result Comment: This test was developed and its analytical performance characteristics have been determined by [employer] [place], [place]. It has not been cleared or approved by the U.S. Food and Drug Administration. This assay has been validated pursuant to the CLIA regulations and is used for clinical purposes. Test Performed by [facility] [place], [facility], [address] [place] [address] Cholo Alcantara M.D., Ph.D., Director of Laboratories , CLIA [id number] Performed By: #### [id number] ## ## [facility] ([facility]) [address] [place] [address] [facility] CBC (HEMOGRAM) Collected: 03/10/2025 10:01 AM Status : F Source: [facility] Order Comment: These orders are set for an approximate date - they can be drawn up to 3 months prior to the Expected Date on this Req. Please send results to: KELL LAWLER MD - [address] [facility] [address] - [phone] And if not done at a [facility], please send to: [facility] - [address] [place] [address], [address], [address] Patient Name: Jaime Oneill - 1965 Order Created by : Mattie Brady LPN TYPE CODE TESTS RESULT OUT OF RANGE REFERENCE UNITS LAB [id number] WBC 5.7 3.6-10.7 10*3/uL LAB 7300280 RBC 4.48 3.80-5.20 10*6/uL LAB 6591715 HEMOGLOBIN 13.3 11.7-16.0 g/dL LAB 5615667 HEMATOCRIT 41.0 35.0-47.0 % LAB 6119039 MCV 91.5 77.0-99.0 fL LAB 0345657 MCH 29.7 26.0-34.0 pg LAB 7921226 MCHC 32.4 30.5-36.0 % LAB 4102567 RDW 12.9 11.5-15.0 % LAB 8479930 PLATELET COUNT 263 140-440 10*3/uL LAB 9000817 MPV 10.9 9.0-12.7 fL Performed By: #### [id number] ## ## Associate Director Financial Aid: HEATHER NORIEGA ([id number]) [facility] [address] [place] [address] VITAMIN B1, WHOLE BLOOD (BKR [facility]) Col lected: 03/10/2025 10:01 AM Status: F Source: [facility] Order Comment: These orders are set for an approximate date - they can be drawn up to 3 months prior to the Expected Date on this Req. Please send results to: KELL LAWLER MD - [address] [facility] [address] - [phone] And if not done at a [facility], please send to: [facility] - [address] [place] [address], [address], [address] Patient Name: Jaime Wiley 1965 Order Created by : Mattie Brady LPN TYPE CODE TESTS RESULT OUT OF RANGE REFERENCE UNITS LAB [address] VITAMIN B1 (THIAMINE), BLOOD, LC/MS/MS 166 78-185 nmol/L Result Comment: Vitamin supplementation within 24 hours prior to blood draw may affect the accuracy of the results. This test was developed and its analytical performance characteristics have been determined by [employer] [place], [place]. It has not been cleared or approved by the U.S. Food and Drug Administration. This assay has been validated pursuant to the CLIA regulations and is used for clinical purposes. Test Performed by [facility], [facility], [address] [place] [address] Cholo Alcantara M.D., Ph.D., Director of Laboratories , CLIA [id number] Performed By: #### [id number] ## ## [facility] (AM[facility]) [address] [place] [address] [facility] MAGNESIUM Collected: 5 10:01 AM Status: F Source: [facility] TYPE CODE TESTS RESULT OUT OF RANGE REFERENCE UNITS LAB [id number] MAGNESIUM 1.9 1.6-2.6 mg/dL Result Comment: ORDER COMMEN TS: These orders are set for an approximate date - they can be drawn up to 3 months prior to the Expected Date on this Req. Please send results to: KELL LAWLER MD - [address] [address] - [phone] And if not done at a [facility], please send to: [facility] - [address] [place] [address], [facility] [address] [facility], [address] Patient Name: Jaime Oneill - 1965 Order Created by : Mattie Brady LPN Higher values can be expected in females during menses. Performed By: #### [id number], L AB18, LAB67, LAB68, LAB17, LAB69 #### Associate Director Financial Aid: HEATHER NORIEGA ([id number]) [facility] ([facility]) [address] [place] [address] [place] [address] [facility] COMPREHENSIVE METABOLIC PANEL Collected : 03/10/2025 10:01 AM Status: F Source: [facility] Order Comment: These orders are set for an approximate date - they can be drawn up to 3 months prior to the Expected Date on this Req. Please send results to: KELL LAWLER MD - [address] [address] - [phone] And if not done at a [facility], please send to: [facility] - [address] [place] [address], [address] - [facility], [address] Patient Name: Jaime Oneill - 1965 Order Created by : Mattie Brady LPN TYPE CODE TESTS RESULT OUT OF RANGE REFERENCE UNITS LAB 7062771 SODIUM 140 136-145 mmol/L LAB 6093467 POTASSIUM 4.5 3.5-5.1 mmol/L Result Comment: Plasma potas sium values may be up to 0.5 mmol/L lower than serum values. LAB 5523578 CHLORIDE 103 98-107 mmol/L LAB 5635082 CARBON DIOXIDE 27 23-31 mmol/L LAB [id number] ANION GAP (JAMES, CALCULATED) 10 3-13 mmol/L LAB 9744980 UREA NITROGEN 21 9-23 mg/dL LAB 2314071 CREATININE 0.83 0.57-1.11 mg/dL LAB 1269673 GLUCOSE 89 82-115 mg/dL LAB 4482104 CALCIUM 9.5 8.8-10.0 mg/dL LAB 0550660 AST (SGOT) 40 High <34 U/L LAB 1223846 ALT 37 High <30 U/L LAB 1886928 ALKALINE PHOSPHATASE 86 40-150 U/L LAB 7310657 ALBUMIN 4.3 3.4-4.8 g/dL LAB 8923204 BILIRUBIN, TOTAL 0.4 <1.2 mg/dL LAB 4868096 TOTAL PROTEIN 8.0 6.4-8.3 g/dL LAB 7484963 GLOMERULAR FILTRATION RATE ML/MIN/1.73 SQ M.PREDICTED 80.3 >60.0 mL/min/1. 73m*2 Result Comment: Calculation based on the Chronic Kidney Disease Epidemiology Collaboration (CKD-EPI) equation refit without adjustment for race Performed By: #### [id number], L AB18, LAB67, LAB68, LAB17, LAB69 #### Associate Director Financial Aid: HEATHER NORIEGA ([phone]) [facility]) [address] [place] [address] LIPID PANEL Collected: 03/10/2025 10:01 AM Status: F Source: [facility] Order Comment: These orders are set for an approximate date - they can be drawn up to 3 months prior to the Expected Date on this Req. Please send results to: KELL LAWLER MD - [address] [address] - [phone] And if not done at a [facility], please send to: [facility] - [address] [place] [address], [address] [place] [address] Patient Name: Jaime Oneill - 1965 Order Created by : Mattie Brady LPN TYPE CODE TESTS RESULT OUT OF RANGE REFERENCE UNITS LAB 8286238 TRIGLYCERIDE 75 <150 mg/dL LAB 1300695 CHOLESTEROL 227 High <200 mg/dL LAB 5151907 HDL CHOLESTEROL 75 >=60 mg/dL LAB 2965624 CHOL/HDL 3 Result Comment: Ref Range: < 3 Low Risk for CHD 3-6 Mod Risk for CHD > 6 High Risk for CHD LAB 6287 VERY LOW DENSITY LIPOPROTEIN, CALCULATED 15 <=30 mg/dL LAB 6288 NON-HDL CHOLESTEROL, CALCULATED 152 High <130 LAB 8821306 LOW DENSITY LIPOPROTEIN 137 High 0-<100 mg/dL Performed By: #### [id number], L AB18, LAB67, LAB68, LAB17, LAB69 #### Associate Director Financial Aid: HEATHER NORIEGA ([id number]) [facility] ([facility]) [address] [place] [address] FERRITIN Collected: 10:01 AM Status: F Source: [facility] TYPE CODE TESTS RESULT OUT OF RANGE REFERENCE UNITS LAB 7599330 FERRITIN 69 5-204 ng/mL Result Comment: ORDER COMMEN TS: These orders are set for an approximate date - they can be drawn up to 3 months prior to the Expected Date on this Req. Please send results to: KELL LAWLER MD - [address] [facility] [address] - [phone] And if not done at a [facility], please send to: [facility] - [address] [place] [address], [address] [place] [address], [address] Patient Name: Jaime Oneill - 1965 Order Created by : Mattie Brady LPN Ferritin levels below 10 ng/mL have been reported as indicative of iron deficiency anemia. Performed By: #### [id number], L AB18, LAB67, LAB68, LAB17, LAB69 #### Associate Director Financial Aid: HEATHER NORIEGA ([phone]) [address] VITAMIN B12 Collected: 5 10:01 AM Status: F Source: [facility] Order Comment: These orders are set for an approximate date - they can be drawn up to 3 months prior to the Expected Date on this Req. Please send results to: KELL LAWLER MD - [address] [facility] [id number] - [phone] And if not done at a [facility], please send to: [facility] - [address] [place] [address], [address] [place] [address], [address] Patient Name: Jaime Oneill - 1965 Order Created by : Mattie Brady LPN TYPE CODE TESTS RESULT OUT OF RANGE REFERENCE UNITS LAB 5133967 VITAMIN B12 693 213-816 pg/mL Result Comment: TC Significant interference from hemolysis. Result integrity compromised. Interpret with caution. Performed By: #### [id number], L AB18, LAB67, LAB68, LAB17, LAB69 #### Associate Director Financial Aid: HEATHER NORIEGA ([id number]) [facility] ([facility]) [address] [place] [address] FOLATE Collected: 5 10:01 AM Status: F Source: [facility] Order Comment: These orders are set for an approximate date - they can be drawn up to 3 months prior to the Expected Date on this Req. Please send results to: KELL LAWLER MD - [address] [facility] [address] - [phone] And if not done at a [facility], please send to: [facility] - [address] [place] [address], [address] Patient Name: Jaime Oneill - 1965 Order Created by : Mattie Brady LPN TYPE CODE TESTS RESULT OUT OF RANGE REFERENCE UNITS LAB 7266655 FOLATE RESULT 18.1 7.0-31.4 ng/mL Result Comment: TC Significant interference from hemolysis. Result integrity compromised. Interpret with caution. Performed By: #### [id number], L AB18, LAB67, LAB68, LAB17, LAB69 #### Associate Director Financial Aid: HEATHER NORIEGA ([id number]) [facility] ([address] HEMOGLOBIN A1C Collected: 03/10/2025 10:01 AM Status : F Source: [facility] TYPE CODE TESTS RESULT OUT OF RANGE REFERENCE UNITS LAB 8302580 HEMOGLOBIN A1C 5.4 <5.7 %HbA1C Result Comment: Normal less than 5.7% Prediabetes 5.7% to 6.4% Diabetes 6.5% or higher --HgbA1C levels may not be accurate in patients who have renal disease, received recent blood transfusions, are anemic, or who have dyshemoglobinemia. LAB 5739052 ESTIMATED AVERAGE GLUCOSE 108 mg/dL Result Comment: ORDER COMMEN TS: These orders are set for an approximate date - they can be drawn up to 3 months prior to the Expected Date on this Req. Please send results to: KELL LAWLER MD - [address] [facility] [address] - [phone] And if not done at a [facility], please send to: [facility] - [address] [place] [address], [address] Patient Name: Jaime Oneill - 1965 Order Created by : Mattie Brady LPN HbA1c values of 5.7-6.4 percent indicate an increased risk for developing diabetes mellitus. HbA1c values greater than or equal to 6.5 percent are diagnostic of diabetes mellitus. For diagnosis of diabetes in individuals without unequivocal hyperglycemia, results should be confirmed by repeat testing. Performed By: #### LAB90 ### # Associate Director Financial Aid: HEATHER NORIEGA ([phone]) [facility] ([facility]) [address] [place] [address] 29 Observed: 03/10/2025 9:28 AM Status: COMPLETED Source: [facility] Addended by: MARCELINA FLORES on: 03/10/2025 09:28 AM Modules accepted: Orders 29 Observed: 03/10/2025 9:27 AM Status: COMPLETED Source: [facility] Addended by: MARCELINA FLORES on: 03/10/2025 09:27 AM Modules accepted: Orders OFFICE VISIT Observed: 03/10/2025 9:00 AM Status: COMPLETED Source: [facility] [id number] Jaime Oneill F Date Provider Department Center 03/10/2025 4556-ANMCLCF-NPPHKJULIANA WRAY*ACH BCC SURG None Family History Problem Relation Age of Onset Obesity Mother Diabetes Mother High Blood Pressure Mother Obesity Father Diabetes Father High Blood Pressure Father Heart disease Father Stroke Father Heart disease Sister Obesity Sister Heart disease Brother High Blood Pressure Brother Family Status - Relation Status Age at Mother Alive Father Sister Alive Brother Alive Level of Service:01700 ME OFFICE/OUTPATIENT ESTABLISHED MDM 10 MIN Reason for Visit and Comments: Weight Management [645] - D/E 2 OF 3 PROGRESS NOTE Observed: 03/10/2025 9:00 AM Status: COMPLETED Source: [facility] PRE-OP MEDICAL MANAGEMENT PROGRESS [...] Morbid obesity with BMI of 40.0-44.9, adult ([facility]) Plan: Diagnosis Managing: GERD: stable. 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 Pt to bring the completed diary to next visit [] Final D/E Visit Discussed surgical checklist with patient. Answered patient's questions. Physician Diet Recommendations given to patient See Follow up Section of today's encounter for next visit and additional scheduling orders OFFICE VISIT Observed: 03/02/2025 11:00 AM Status: COMPLETED Source: [facility] [id number] Jaime Oneill [birth year] F Date Provider Department Center 03/02/2025 [id number]-RXZGYBIBIANA BREEN WMI None Family History Problem Relation Age of Onset Obesity Mother Diabetes Mother High Blood Pressure Mother Obesity Father Diabetes Father High Blood Pressure Father Heart disease Father Stroke Father Heart disease Sister Obesity Sister Heart disease Brother High Blood Pressure Brother Family Status - Relation Status Age at Mother Alive Father Sister Alive Brother Alive Level of Service:85526 ME PSYCL/NRPSYCL TST ELEC PLATFORM AUTO RESULT Reason for Visit and Comments: Psychiatric Evaluation [647842] - testing PROGRESS NOTE Observed: 03/02/2025 11:00 AM Status: COMPLETED Source: [facility] PSYCHOLOGICAL TESTING VIA COMPUTER PATIENT: Jaime Oneill [...] information gathered at the clinical interview. Bibiana Breen, PhD Clinical Psychologist [facility] OFFICE VISIT Observed: 03/02/2025 9:30 AM Status: COMPLETED Source: [facility] [id number] Jaime Oneill [birth year] F Date Provider Department Center 03/02/2025 04072-XFVTWBIBIANA BREEN ACH [facility] BH None Family History Problem Relation Age of Onset Obesity Mother Diabetes Mother High Blood Pressure Mother Obesity Father Diabetes Father High Blood Pressure Father Heart disease Father Stroke Father Heart disease Sister Obesity Sister Heart disease Brother High Blood Pressure Brother Family Status - Relation Status Age at Mother Alive Father Sister Alive Brother Alive Level of Service:31652 ME PSYCHIATRIC DIAGNOSTIC EVALUATION Reason for Visit and Comments: Psychiatric Evaluation [977910] PROGRESS NOTE Observed: 02/25/2025 9:00 AM Status: COMPLETED Source: [facility] BARIATRIC NUTRITION ASSESSMENT / DIET & EXERCISE SURGICAL WEIGHT LOSS MANAGEMENT PROGRAM Date: 02/25/25 Patient Name: Jaime Oneill Date of : 1965 Type of Assessment: Surgical Patient - Pre-op Initial Assessment Weight Metrics: Today's Height: 5' 5 (1.651 m) Today's Weight: 250 lb (113 kg) Today's BMI: Body mass index is 41.6 kg/m?. Surgeon: Dr. Moore Surgical Procedure: [x] not to make a [...] Amount regained Most successful Lifestyle Changes [facility] CURRENT MEAL PLANNING Self Spouse [...] they must have someone in their home 03/06 for the first week following surgery, or [...] Bariatric Nutrition Assessment completed by: Dashawn Workman ANESTHESIA NOTE Observed: 02/25/2025 7:23 AM Status: COMPLETED Source: [facility] Patient: Jaime Oneill Procedure Information Date/Time: 02/25/25 1349 Procedure: ESOPHAGOGASTRODUODENOSCOPY, WITH BIOPSY - 20 MINS Location: [facility] SEC 3 / [facility] Gastroenterology Providers: Jordon Moore, DO Relevant Problems Endo (+) Hypothyroidism GI [...] previous visit. Equipment Requests: Additional Equipment Requests 36 Observed: 02/22/2025 3:16 PM Status: COMP LETED Source: [employer] Corrected. 36 Observed: 02/22/2025 3:02 PM Status: COMPLETED Source: [facility] This is a 3 visit patient. N ext visit marked 2 of 6- I do not know how to correct with new system. Thanks! 37 Observed: 02/19/2025 10:40 AM Status: COMPLETED Source: [facility] YOUR APPOINTMENT TODAY WAS [place] [facility] LUNG NODULE CLINIC, COPD CLINIC, PULMONARY AND SLEEP MEDICINE OFFICE. PLEASE CALL OUR OFFICE AT [phone] IF YOU HAVE NOT RECEIVED YOUR TEST [...] feedback to make improvements. COVID-19 VACCINATION INFORMATION: . [phone] [facility]/CORONAVIRUS/VACCINE [facility] Central Scheduling [phone] [facility] Sleep Scheduling [phone] PROGRESS NOTE Observed: 02/19/2025 10:40 AM Status: COMPLETED Source: [facility] Visit type: New patient History of Present Illness: HPI History of Present Illness: Jaime Oneill is a 59 y.o. female patient being seen for pre-operative pulmonary clearance. She was recently seen by Dr. Moore and plans to undergo bariatric surgery in the near future. She feels well today. Hx of underlying lung disease: none Respiratory symptoms: Denies any symptoms such as SOB, coughing, wheezing, chest tightness, or CP. 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 Known history of sleep apnea: no [place] Sleepiness Scale: 3 Sleep apnea symptoms: Snoring [...] follow up PRN or if symptoms worsen. OFFICE VISIT Observed: 02/19/2025 10:40 AM Status: COMPLETED Source: [facility] [id number] OneillJaime [birth year] F Date Provider Department Center 02/19/2025 83936-LLQTNUTEUHENCRICKET RINCON *[facility] PUL None Family History Problem Relation Age of Onset Obesity Mother Diabetes Mother High Blood Pressure Mother Obesity Father Diabetes Father High Blood Pressure Father Heart disease Father Stroke Father Heart disease Sister Obesity Sister Heart disease Brother High Blood Pressure Brother Family Status - Relation Status Age at Mother Alive Father Sister Alive Brother Alive Level of Service:84803 ME OFFICE/OUTPATIENT NEW LOW MDM 30 MINUTES Reason for Visit and Comments: New Patient [542] 36 Observed: 02/09/2025 2:44 PM Status: COMPLETED Source: [facility] There is only 1 note from Se price that is still good but now too large of a gap to even use that. She should do the 3 here. 36 Observed: 02/05/2025 7:52 AM Status: COMPLETED Source: [facility] Medical weight loss visits n oted in care everywhere for [facility]. Will review to see if these apply for program. 29 Observed: 02/03/2025 11:56 AM Status: COMPLETED Source: [facility] Addended by: MATTIE BRADY n: 02/03/2025 11:56 AM Modules accepted: Orders 36 Observed: 02/03/2025 11:27 AM Status: COMPLETED Source: [facility] ----- Message from KENTON Faye CNP sent at 02/03/2025 11:11 AM EDT ----- Please obtain bariatric records from in [place] - [facility] [address] [facility] [address], [place] [address] ? [address] fransisca Martinez May PROGRESS NOTE Observed: 02/03/2025 10:40 AM Status: COMPLETED Source: [facility] See TE records requests - [facility] records for further documentation PROGRESS NOTE Observed: 02/03/2025 10:40 AM Status: COMPLETED Source: [facility] SURGICAL WEIGHT LOSS MANAGEMENT PROGRAM SUPERVISED DIET AND EXERCISE SURGICAL PREPARATORY REGIMEN PROGRESS NOTE INITIAL EVALUATION Patient: Jaime Oneill Service Date: 02/03/2025 Date of : 1965 Patient History/Assessment Summary: The patient is a pleasant 59 y.o. 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 INITIAL D/E / Goals: Protein will be added to all [...] mouth daily. CHOLECALCIFEROL (VITAMIN D-3) 250 MCG (83773 UT) TABLET Take 10,000 Units by mouth [...] file Discontinued Medications No medications on file CE VISIT Observed: 02/03/2025 10:40 AM Status: COMPLETED Source: [facility] [employer] [facility] [id number] Jaime Oneill [birth year] F Date Provider Department Center 02/03/2025 [id number]-FSRMYJULIANA BHATIA*ACH BCC SURG None Family History Problem Relation Age of Onset Obesity Mother Diabetes Mother High Blood Pressure Mother Obesity Father Diabetes Father High Blood Pressure Father Heart disease Father Stroke Father Heart disease Sister Obesity Sister Heart disease Brother High Blood Pressure Brother Family Status - Relation Status Age at Mother Alive Father Sister Alive Brother Alive Level of Service:58397 ME OFFICE/OUTPATIENT ESTABLISHED MOD MDM 30 MIN Reason for Visit and Comments: Weight Management [645] - Initial D/E Observed: 01/28/2025 1:28 PM Status: COMPLETED Source: [facility] [employer] [facility] Orders / pre op check list p laced in folder for D/E 02/03/2025 W/ MGS. 29 Observed: 01/28/2025 11:34 AM Status: COMPLETED Source: [facility] [employer] [facility] Addended by: TRISH BHATIA on: 01/28/2025 11:34 AM Modules accepted: Orders 36 Observed: 01/28/2025 11:34 AM Status: COMPLETED Source: [facility] [employer] [facility] Orders signed. Called and left voicemail for patient to discuss decision of procedure she would like to have. 29 Observed: 01/28/2025 9:37 AM Status: COMPLETED Source: [facility] Addended by: MATTIE BRADY n: 01/28/2025 09:37 AM Modules accepted: Orders 36 Observed: 01/28/2025 9:33 AM Status: COMPLETED Source: [employer] [facility] EGD order sent to [address] sche[address] ler, labs pended, Pre op check list scanned to media. PROGRESS NOTE Observed: 01/28/2025 9:32 AM Status: COMPLETED Source: [employer] Patient is scheduled for EGD with biopsy- CPT 24219 on 03/25/25 at 145PM Contact attempts- 3 must be made in 2 different forms. Discussed with patient via phone and sent [employer] message after confirming pt active on [employer] Important info discussed as applicable: Is patient [...] needs held 3 days prior to EGD PROGRESS NOTE Observed: 01/28/2025 9:32 AM Status: COMPLETED Source: [employer] Auth required: Yes Insurance: [employer] [place] [facility] [place]: [id number] Authorization number: [id number] Valid dates: 02/25/25 to 05/27/2025 Notes: Tracking # [id number] PROGRESS NOTE Observed: 01/28/2025 9:32 AM Status: COMPLETED Source: [employer] [facility] ADDED TO OUTLOOK RESS NOTE Observed: 01/28/2025 9:32 AM Status: COMPLETED Source: [employer] Attempt to contact patient, no answer, left voice message regarding scheduling an EGD procedure RESS NOTE Observed: 01/28/2025 9:32 AM Status: COMPLETED Source: [employer] Print RESS NOTE Observed: 01/28/2025 9:32 AM Status: COMPLETED Source: [employer] [facility] Patient is scheduled for EGD with biopsy- CPT 14171 on 02/25/2025 at 1:45 95 ARCH Contact attempts- 3 must be made in 2 different forms. Discussed with patient via phone and sent [employer] message after confirming pt active on [employer] Important info discussed as applicable: Is patient [...] needs held 3 days prior to EGD PROGRESS NOTE Observed: 01/28/2025 9:32 AM Status: COMPLETED Source: [facility] ENDOSCOPY ORDERS To be scheduled with: Dr. Moore Patient is: Pre-op/Pre-Bariatric Surgery CPT code: EGD with biopsy- CPT 03173 Diagnosis: GERD- K21.9 If pre-op, Diet & [...] need to be obtained prior to scheduling PROGRESS NOTE Observed: 01/28/2025 9:32 AM Status: COMPLETED Source: [facility] Auth required: Yes Insurance: [employer] referred to [facility] ID number: [id number] Authorization number: [id number] Valid dates: 02/25/25 to 05/27/2025 Notes: Tracking # [id number] Observed: 01/28/2025 9:31 AM Status: COMPLETED Source: [facility] PLAN Encounter Diagnoses Name Primary? Morbid obesity, [...] full chart rreview was performed by myself. 36 Observed: 01/25/2025 2:25 PM Status: COMPLETED Source: [facility] Initial New [facility] surgical pat ient Navigation & Financial Counseling Discussion Patient Communication: [...] INSURANCE: Payor: [employer] MEDICARE ADVANTAGE / Plan: [employer] MEDICARE / Product Type: Medicare HMO / [...] 1) Scheduled at new pt surgeon visit: Stable Cleaner (RD) for a Nutrition Assessment (BNA) and [...] and lab/testing results before and after surgery. PROGRESS NOTE Observed: 01/25/2025 10:20 AM Status: COMPLETED Source: [facility] BARIATRIC AND METABOLIC SURG [facility] INITIAL EVALUATION - HISTORY AND PHYSICAL [...] mouth daily. CHOLECALCIFEROL (VITAMIN D-3) 250 MCG (73653 UT) TABLET Take 10,000 Units by mouth [...] full chart rreview was performed by myself. Jordon Moore FACS [facility] Director - Minimally Invasive Surgery ---[facility]--- Patient Care Team: Kell Lawler MD as PCP - General (Geriatric Medicine) OFFICE VISIT Observed: 01/25/2025 10:20 AM Status: COMPLETED Source: [facility] [id number] Jaime Oneill F Date Provider Department Center 01/25/2025 [id number] MOORE WMI SURG None Family History Problem Relation Age of Onset Obesity Mother Diabetes Mother High Blood Pressure Mother Obesity Father Diabetes Father High Blood Pressure Father Heart disease Father Stroke Father Heart disease Sister Obesity Sister Heart disease Brother High Blood Pressure Brother Family Status - Relation Status Age at Mother Alive Father Sister Alive Brother Alive Level of Service:22653 ME OFFICE/OUTPATIENT NEW MODERATE MDM 45 MINUTES Reason for Visit and Comments: Surgical Consult [878] - NEW ALLERGIES No Allergies Records Found ENCOUNTERS ADMIT/DISCHARGE ACCOUNT NUMBER ADMITTING ENCOUNTER CLASS LOC ATION SOURCE 08/02/2025/ 5 [id number] Ambulatory Buildin [id number] [facility] 07/05/2025/ 5 [id number] Ambulatory Buildin [id number] [facility] 06/30/2025/ 5 [id number] JORDON MOORE Inpatient Encounter Buildin [id number]: GEORGINA [id number]: H-6101 A [facility] 06/22/2025/ 5 [id number] Ambulatory Buildin [id number] [facility] 06/07/2025/ 5 [id number] Ambulatory Buildin [id number] [facility] 04/08/2025/ 5 [id number] Ambulatory Buildin [id number] [facility] 04/08/2025/ 5 [id number] Ambulatory Buildin [id number] [facility] 03/25/2025/ 5 [id number] JORDON MOORE Ambulatory Buildin [id number]: [id number] : 5921 [facility] 03/17/2025/ 5 [id number] Ambulatory Buildin [id number] [facility] 03/10/2025/ 5 [id number] Ambulatory Buildin [id number] [facility] 03/10/2025/ 5 [id number] Ambulatory Buildin [id number] [facility] 03/02/2025/ 5 [id number] Ambulatory Buildin [id number] [facility] 03/02/2025/ 5 [id number] Ambulatory Buildin [id number] [facility] 02/25/2025/ 5 [id number] Ambulatory Buildin [id number] [facility] 02/19/2025/ 5 [id number] Ambulatory Buildin [id number] [facility] 02/03/2025/ 5 [id number] Ambulatory Buildin [id number] [facility] 01/25/2025/ 5 [id number] Ambulatory Buildin [id number] [facility] PAYERS ENCOUNTER GUARANTOR PAYER SUBSCRIBER SOURCE 08/02/2025 Primary Insuranc e:HUMAN MEDICARE ADVANTAGEPolicy Number: [id number] Date:1131-91-66Vphe Name:Medicare HMDelfin MAROB: [id number] [facility] [address] [address] [facility] 07/05/2025 Primary Insuranc e:HUMAN MEDICARE ADVANTAGEPolicy Number: [id number] Date:9449-69-00Wnrp Name:Medicare HMDelfin MAROB: [id number] [address], [place] [address] [facility] 06/30/2025 Primary Insuranc e:HUMAN MEDICARE ADVANTAGEPolicy Number: [id number] Date:7182-36-76Pngt Name:Medicare HMDelfin MAROB: [id number] [address], [place] [address] [facility] 06/22/2025 Primary Insuranc e:HU[employer]NA MEDICARE ADVANTAGEPolicy Number: [id number] Date:3200-58-31Kdwu Name:Medicare O JAIME MAROB: [id number] [address], [place] [address] [facility] 06/07/2025 Primary Insuranc e:HU[employer]NA MEDICARE ADVANTAGEPolicy Number: [id number] Date:7483-71-87Pimq Name:Medicare HMO JAIME MAROB: [id number] [address], [place] [address] [facility] 04/08/2025 Primary Insuranc e:HUMANA MEDICARE ADVANTAGEPolicy Number: [id number] Date:9332-91-00Syae Name:Medicare HMO JAIME MAROB: [id number] [address], [place] [address] [facility] 04/08/2025 Primary Insuranc e:HUMANA MEDICARE ADVANTAGEPolicy Number: [id number] Date:4272-82-49Gnju Name:Medicare HMO JAIME MAROB: [id number] [address], [place] [address] [facility] 03/25/2025 Primary Insuranc e:HUMANA MEDICARE ADVANTAGEPolicy Number: [id number] Date:0146-36-68Rjta Name:Medicare HMO JAIME MAROB: [id number] [address], [place] [address] [facility] 03/17/2025 Primary Insuranc e:HU[employer]NA MEDICARE ADVANTAGEPolicy Number: [id number] Date:1521-34-67Bxwq Name:Medicare HMO JAIME MAROB: [id number] [address], [place] [address] [facility] 03/10/2025 Primary Insuranc e:HU[employer]NA MEDICARE ADVANTAGEPolicy Number: [id number] Date:9521-06-68Dseu Name:Medicare HMO JAIME MAROB: [id number] [address], [place] [address] [facility] 03/10/2025 Primary Insuranc e:HUMANA MEDICARE ADVANTAGEPolicy Number: [id number] Date:4850-83-89Hdft Name:Medicare O JAIME MAROB: [id number] [address], [place] [address] [facility] 03/02/2025 Primary Insuranc e:HUMANA MEDICARE ADVANTAGEPolicy Number: [id number] Date:8735-10-17Uwlz Name:Medicare O JAIME MAROB: [id number] [address], [place] [address] [facility] 03/02/2025 Primary Insuranc e:HUMANA MEDICARE ADVANTAGEPolicy Number: [id number] Date:0280-62-96Ohqy Name:Medicare O JAIME MAROB: [id number] [address], [place] [address] [facility] 02/19/2025 Primary Insuranc e:HUMANA MEDICARE ADVANTAGEPolicy Number: [id number] Date:0068-66-67Erkd Name:Medicare O JAIME MAROB: [id number] [address], [place] [address] [facility] 02/03/2025 Primary Insuranc e:HUMANA MEDICARE ADVANTAGEPolicy Number: [id number] Date:5201-95-88Lomt Name:Medicare O JAIME MAROB: [id number] [address], [place] [address] [facility] 01/25/2025 Primary Insuranc e:HUMANA MEDICARE ADVANTAGEPolicy Number: [id number] Date:8336-81-24Tobf Name:Medicare O JAIME MAROB: [id number] [address], [place] [address] [facility]
[2025-08-07 07:24] VITALS: BP 141/81; PULSE 78; RESP 16; TEMP 36.8; O2SAT 99; BMI 38.0
--- NOTE | 2025-08-07 07:47 | CT_ITS ---
PROCEDURE: ABDOMEN/PELVIS WITH CONTRAST 08/07/2025 REASON FOR EXAM: CONSTIPATION, PAIN STATUS POST GASTRIC BYPASS TECHNIQUE: Procedure Code: [id number] Modality: CT Procedure: ABDOMEN/PELVIS WITH CONTRAST Coronal and Sagittal reconstruction series were provided. CONTRAST: Isovue 370 VOLUME: 100 mL One or more dose reduction techniques were used (e.g., Automated exposure control, adjustment of the mA and/or kV according to patient size, use of iterative reconstruction technique. RADIATION DOSE SUMMARY: CTDlvol: 23.75 mGy DLP: 1301.57 mGycm COMPARISON: None. FINDINGS: Lung bases: Clear. Liver: Liver steatosis. Focal areas of fatty infiltration near the ligamentum teres. Gallbladder: Status post cholecystectomy. No biliary dilation. Spleen: Unremarkable. Pancreas: Unremarkable. Adrenals: Unremarkable. Kidneys: A 1 mm stone at the lower pole of the left kidney. No hydronephrosis. No nephrolithiasis. Bladder: Unremarkable. Reproductive Organs: Unremarkable. Bowel: Status post gastric bypass surgery. Colonic diverticulosis. No bowel wall thickening. No bowel obstruction. Appendix: Unremarkable. Lymph nodes: No lymphadenopathy. Vasculature: No aneurysm. Peritoneum / Retroperitoneum: No free air or free fluid. Bones: No acute bony abnormalities. CT/Abdomen/Pelvis WITH Contrast IMPRESSION: A punctate stone at the lower pole of the left kidney. No hydronephrosis. Otherwise, no acute abdominopelvic abnormalities. Reading Location: [facility]
--- NOTE | 2025-08-07 07:47 | ED.VIS.GI ---
HPI HPI - GI History of Present Illness Chief Complaint: Constipation Narrative Narrative: 59-year-old female past medical history of gastric bypass surgery within the last month a month and a half, end of June, presents with constipation that she has had over the last 3 days. States she has not had a bowel movement. She is nauseated but not vomiting. No fevers or chills. She states she usually has bowel movements at least 3 times a day. She started eating regular food. She followed up with her gastric bypass surgeon at [facility] on Saturday, approximately 5 days ago. She had been doing well until about Saturday of this week when she stopped having bowel movements. She states that she is afraid to eat now. Her nausea has resolved. She states when she sits on the toilet and tries to have a bowel movement, she has pain. [facility] Medical History history of thoracic fracture Acid indigestion Hyperthyroidism Home Medications ?Medication ?Instructions ?Recorded ?Last Taken ?Type biotin 5 mg capsule 5 mg PO DAILY 08/07/25 08/04/25 History bisacodyl 10 mg rectal suppository 10 mg [place] DAILY PRN constipation 08/07/25 Unknown Rx (Laxative (bisacodyl)) #12 ea black cohosh 200 mg capsule 200 mg PO DAILY 08/07/25 08/04/25 History calcium citrate 500 mg PO TID 08/07/25 08/04/25 History cholecalciferol (vitamin D3) 50 100 mcg PO DAILY 08/07/25 08/04/25 History mcg (2,000 unit) capsule cyanocobalamin (vitamin B-12) 5,000 mcg PO DAILY 08/07/25 08/04/25 History 5,000 mcg capsule levothyroxine 125 mcg tablet 125 mcg PO DAILY 08/07/25 08/07/25 History multivitamin (Daily Multi-Vitamin 1 tab PO DAILY 08/07/25 08/04/25 History tablet) pantoprazole 40 mg tablet,delayed 40 mg PO DAILY 08/07/25 08/06/25 History release thiamine mononitrate (vit B1) 50 50 mg PO DAILY 08/07/25 08/04/25 History mg tablet vitamin B complex (Vitamins B 1 cap PO DAILY 08/07/25 08/04/25 History Complex capsule) Allergy/AdvReac Type Severity Reaction Status Date / Time No Known Allergies Allergy Verified 08/07/25 07:24 Surgical History Gastric bypass status for obesity History of tubal ligation History of partial hysterectomy History of cholecystectomy Social History Smoking Status: Former smoker Tobacco: How many years used: 32 second hand exposure: Yes quit status: considering quitting alcohol intake: current alcohol intake frequency: 0-2 drinks per day Alcohol type: hard liquor substance use type: does not use what type of physical activity do you participate in: none ROS ROS ED ROS Narrative Review of systems positive for lack of bowel movement for 3 days. Abdominal pain when straining. Status post gastric bypass by about a month. No fevers or chills. Currently no nausea or vomiting. No true exacerbating or alleviating factors. Decreased p.o. intake. EXAM Physical Exam Narrative Exam Narrative: Afebrile. Vital signs noted. Nontoxic-appearing. Cardiovascular examination reveals a regular rate and rhythm. Lungs are clear to auscultation bilaterally. The abdomen is soft, nontender, with positive bowel sounds. No guarding or rebound. Const Vital Signs: 08/07/25 07:24 08/07/25 11:24 08/07/25 11:25 Temperature 98.3 F 98.3 F Temperature Source Oral Pulse Rate 78 65 65 Respiratory Rate 16 16 16 Blood Pressure 141/81 H 134/81 H 134/81 H Blood Pressure Mean 101 98 98 Pulse Ox 99 99 Oxygen Delivery Method Room Air MDM MDM MDM Narrative Medical decision making narrative: Differential diagnosis includes but not limited to partial small bowel obstruction/bowel obstruction versus constipation versus nonspecific abdominal pain versus pancreatitis. I do feel she requires CT imaging with p.o. and IV contrast as she is status post gastric bypass. She is no longer taking opiates. She may have dehydration or other electrolyte imbalance as she states she has had decreased p.o. intake. I reviewed her laboratory work and she has normal white count of 5.8 with hemoglobin 12.5, hematocrit 38.1, platelet count normal at 163. CMP is remarkable for creatinine low at 0.69 with a normal BUN of 9, no evidence of dehydration. Normal sodium and potassium. LFTs show slightly elevated AST and ALT at 49 and 55 respectively. I think is nonspecific. Lipase normal at 21 so I doubt pancreatitis. Urinalysis shows contaminated specimen with 10-25 epithelial cells. I do not feel antibiotics are indicated. She is slightly dehydrated with 15 ketones. I discussed the patient with Dr. Anderson. He suggested increasing MiraLAX, and also having the patient try enemas versus suppositories. I feel she can be discharged to follow-up. Return instructions to the emergency department were reviewed. Disposition is discharged home in stable condition. History & Record Review Discussion w/independent historian: Patient Additional record(s) reviewed:: Prior ED visit (Noncontributory to current chief complaint. Previous visit remote.) Lab Data Attestation: I reviewed the patient's lab results. Labs: Laboratory Results - last 24 hr 08/07/25 08/07/25 07:55 08:10 WBC 5.8 RBC 4.18 L Hgb 12.5 Hct 38.1 MCV 91.1 MCH 29.9 MCHC 32.8 RDW Std Deviation 45.6 H RDW Coeff of Julio 13.6 Plt Count 163 MPV 12.0 Immature Gran % (Auto) 0.200 Neut % (Auto) 69.7 Lymph % (Auto) 18.7 L [place] % (Auto) 9.2 Eos % (Auto) 1.7 Baso % (Auto) 0.5 Absolute Neuts (auto) 4.1 Absolute Lymphs (auto) 1.09 Nucleated RBC % 0 Sodium 142 Potassium 3.4 Chloride 103 Carbon Dioxide 25.6 Anion Gap 14 BUN 9 Creatinine 0.69 L Estim Creat Clear Calc 102.24 Est GFR (MDRD) Non-Af 99 BUN/Creatinine Ratio 13.2 Glucose 105 H Calcium 9.2 Total Bilirubin 0.49 AST 49 H ALT 55 H Alkaline Phosphatase 96 Total Protein 7.4 Albumin 4.2 Globulin 3.1 Albumin/Globulin Ratio 1.4 Lipase 21 Urine Color Yellow Urine Clarity Clear Urine pH 6.0 Ur Specific [place] 1.020 Urine Protein 15 H Urine Glucose (UA) Normal Urine Ketones 15 H Urine Occult Blood 10 H Urine Nitrite Negative Urine Bilirubin Negative Urine Urobilinogen 1 H Ur Leukocyte Esterase 500 H Urine RBC 0 SEEN Urine WBC 10-25 SEEN Ur Squamous Epith Cells 10-25 SEEN Urine Bacteria 2+ Urine Mucus 1+ Radiography Diagnostic Testing: Clinical Impression(s) from Imaging Studies Abdomen/Pelvis CT 08/07/25 07:47 IMPRESSION: A punctate stone at the lower pole of the left kidney. No hydronephrosis. Otherwise, no acute abdominopelvic abnormalities. Reading Location: [facility] Discharge Plan Triage Chief Complaint: Constipation ED Provider: Bravo Luz Dx/Rx/DC Orders Clinical Impression: Constipation, Abdominal pain, History of gastric bypass Instructions: Bariatric Surg Post Op 6 Weeks, Bariatric Surg Lifestyle Changes, ED Abdominal Pain Unkn Cause Fem, ED Constipation (Adult) Prescriptions: New bisacodyl [Laxative (bisacodyl)] 10 mg suppository 10 mg [place] DAILY PRN (Reason: constipation) Qty: 12 0RF No Action pantoprazole 40 mg tablet,delayed release (DR/EC) 40 mg PO DAILY levothyroxine 125 mcg tablet 125 mcg PO DAILY multivitamin [Daily Multi-Vitamin] Tablet 1 tab PO DAILY calcium citrate 250 mg calcium tablet 500 mg PO TID thiamine mononitrate (vit B1) 50 mg tablet 50 mg PO DAILY cyanocobalamin (vitamin B-12) 5,000 mcg capsule 5,000 mcg PO DAILY cholecalciferol (vitamin D3) 50 mcg (2,000 unit) capsule 100 mcg PO DAILY black cohosh 200 mg capsule 200 mg PO DAILY biotin 5 mg capsule 5 mg PO DAILY vitamin B complex [Vitamins B Complex] Capsule 1 cap PO DAILY Primary Care Provider: Edilberto Loza Chi Referrals: Monica [Other] - 1 Week if not improving Edilberto Loza Chi, MD [Primary Care Provider, Geriatrics] Activity Restrictions/Additional Instructions: Increase your MiraLAX to twice a day. Follow-up with your surgeon, Dr. Anderson in 1 week if not improving. Return with fever, nausea and vomiting, increased pain, new or worsening symptoms. Print Language: Malay Disposition Disposition: Home, Self Care Discharge Date/Time: 08/07/25 11:26
[2025-08-07 08:12] LABS: Hematocrit 38.1 % (37-47); Hemoglobin 12.5 g/dL (12.0-15.0); Immature Granulocytes Count 0.010 X10^3/uL (0.0-0.0); Mean Corp Hgb Conc 32.8 g/dL (32-36); Mean Corpuscular Volume 91.1 fL (81-99); Mean Platelet Vol. 12.0 fl (6.2-12.0); NRBC Flagged by Analyzer 0 % (0-5); Platelet Count 163 K/mm3 (150-450); RBC Distribution Width CV 13.6 % (11.6-14.6); RBC Distribution Width SD 45.6 fl (35.1-43.9); Red Blood Count 4.18 M/mm3 (4.2-5.4); White Blood Count 5.8 K/mm3 (4.4-11.0)
[2025-08-07 08:13] LABS: Red Blood Cells-Urine 0 SEEN /hpf (0-5)
[2025-08-07 08:15] LABS: Color, Urine Yellow (Yellow); Glucose, Dipstick Normal (Normal); Ketone-Dipstick 15 mg/dl (Negative); Leukocyte Esterase-Dipstick 500 /ul (Negative); Nitrite-Dipstick Negative (Negative); Occult Blood-Urine 10 /ul (Negative); Protein-Dipstick 15 mg/dl (Negative); Specific Gravity, Urine 1.020 (1.002-1.030); Urine Bilirubin Dipstick Negative (Negative)
[2025-08-07 08:21] LABS: Squamous Epithelial Cells - UA 10-25 SEEN /hpf (5-10)
[2025-08-07 08:22] LABS: Mucous, Urine 1+ /hpf (<or=2+)
[2025-08-07 08:55] LABS: AST(SGOT) 49 U/L (<=31); Alanine Aminotransfer ALT/SGPT 55 U/L (<=34); Albumin, Serum 4.2 g/dL (3.4-4.8); Alkaline Phosphatase 96 U/L (35-104); Anion Gap 14 (5-15); BUN 9 mg/dL (4-19); BUN/Creat Ratio 13.2 RATIO (10-20); Calcium,Total 9.2 mg/dL (7.6-11.0); Carbon Dioxide 25.6 mmol/L (21.0-32.0); Chloride 103 mmol/L (98-108); Estimated Creatinine Clearance 102.24 ml/min (50-250); Globulin 3.1 g/dL (2.2-4.2); Glucose 105 mg/dL (70-99); Lipase 21 U/L (13-75); Potassium 3.4 mmol/L (3.3-5.1)
[2025-08-07 11:24] VITALS: BP 134/81; PULSE 65; RESP 16
[2025-08-07 11:25] VITALS: BP 134/81; PULSE 65; RESP 16; TEMP 36.8; O2SAT 99
== END 2025-08-07 11:26 | disposition home or self-care (01) ==
PROVIDERS: Emergency Provider Emergency Medicine; PCP Family Medicine Geriatric Medicine; Visit Provider Emergency Medicine
DX: K59.00 Constipation, unspecified (principal); Z90.710 Acquired absence of both cervix and uterus; R10.9 Unspecified abdominal pain; Z87.891 Personal history of nicotine dependence; R11.0 Nausea; Z98.84 Bariatric surgery status; Z98.51 Tubal ligation status; Z90.49 Acquired absence of other specified parts of digestive tract; E05.90 Thyrotoxicosis, unspecified without thyrotoxic crisis or storm
CPT/HCPCS: 74177; 80053; 81001; 83690; 85025; 99283; Q9967; A4216

== ENCOUNTER 2025-08-10 11:10 | Outpatient (CLI) | payer MEDICARE, SELFPAY ==
--- OUTSIDE RECORDS SUMMARY | 2025-08-02 09:44 | XMS RPT_ITS ---
Author Name Auto Generated Organization OHIP Care Team Providers Care Electrician Constructor Supervisor Name Role Phone BUCKY, JONATHAN-CHI Primary Care Unavailable POZSGAY, JORDON Attending Unavailable POZSGAY, JORDON Admitting Unavailable BUCKY, JONATHAN-CHI Primary Care Unavailable POZSGAY, JORDON Attending Unavailable POZSGAY, JORDON Admitting Unavailable BUCKY, JONATHAN-CHI Primary Care Unavailable POZSGAY, JORDON Attending Unavailable BUCKY, JONATHAN-CHI Primary Care Unavailable BUCKY, JONATHAN-CHI Referring Unavailable TRISH BHATIA Attending Unavail able BUCKY, JONATHAN-CHI Primary Care Unavailable BIBIANA BREEN Attending Unavailable BUCKY, JONATHAN-CHI Primary Care Unavailable TRISH BHATIA Referring Unavail able TRISH BHATIA Attending Unavail able BUCKY, JONATHAN-CHI Primary Care Unavailable BUCKY, JONATHAN-CHI Referring Unavailable POZSGAY, JORDON Attending Unavailable BUCKY, JONATHAN-CHI Primary Care Unavailable BUCKY, JONATHAN-CHI Referring Unavailable TRISH BHATIA Attending Unavail able BUCKY, JONATHAN-CHI Primary Care Unavailable BIBIANA BREEN Attending Unavailable BUCKY, JONATHAN-CHI Primary Care Unavailable BUCKY, JONATHAN-CHI Referring Unavailable TRISH BHATIA Attending Unavail able BUCKY, JONATHAN-CHI Primary Care Unavailable BIBIANA BREEN Attending Unavailable BUCKY, JONATHAN-CHI Primary Care Unavailable POZSGAY, JORDON Attending Unavailable BUCKY, JONATHAN-CHI Primary Care Unavailable TRISH BHATIA Referring Unavail able JF ROE Attending Unavailable BUCKY, JONATHAN-CHI Primary Care Unavailable TRISH BHATIA Referring Unavail able CRICKET RINCON Attending Unavailable BUCKY, JONATHAN-CHI Primary Care Unavailable POZSGAY, JORDON Attending Unavailable BUCKY, JONATHAN-CHI Primary Care Unavailable BUCKY, JONATHAN-CHI Referring Unavailable POZSGAY, JORDON Attending Unavailable BUCKY, JONATHAN-CHI Primary Care Unavailable POZSGAY, JORDON Attending Unavailable PROBLEMS DATE TYPE CONDITION / CODE ATTENDING STATUS [facility] 07/26/2025 Admitting Diagnosis Gastro-esophageal reflux disease without esophagitis / K21.9(ICD-10) JORDON MOORE [facility] 06/30/2025 Admitting Diagnosis Bariatric surgery status / Z98.84(ICD-10) JORDON MOORE [facility] 08/02/2025 Admitting Diagnosis 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) PAMELA [facility] 08/02/2025 Admitting Diagnosis Deficiency of other specified B group vitamins / E53.8(ICD-10) PAMELA [facility] 08/02/2025 Admitting Diagnosis Obesity, class 2 / E66.812(ICD-10) PAMELA, [facility] 08/02/2025 Admitting Diagnosis Body mass index (BMI) 38.0-38.9, adult / Z68.38(ICD-10) PAMELA, [facility] 06/30/2025 Admitting Diagnosis Morbid (severe) obesity due to excess calories (HCC) / E66.01(ICD-10) PAMELA, [facility] 05/24/2025 Admitting Diagnosis Body mass index (BMI) 40.0-44.9, adult (HCC) / Z68.41(ICD-10) PAMELA [facility] 06/30/2025 Admitting Diagnosis Other acute postprocedural pain / G89.18(ICD-10) PAMELA [facility] 01/25/2025 Admitting Diagnosis Hypothyroidism, unspecified / E03.9(ICD-10) PAMELA [facility] 03/10/2025 Admitting Diagnosis Encounter for other preprocedural examination / Z01.818(ICD-10) TRISH BHATIA [facility] 01/25/2025 Admitting Diagnosis Major depressive disorder, recurrent, mild (HCC) / F33.0(ICD-10) BIBIANA BREEN [facility] 03/02/2025 Admitting Diagnosis Other specified eating disorder / F50.89(ICD-10) BIBIANA BREEN [facility] 03/02/2025 Admitting Diagnosis Other specified anxiety disorders / F41.8(ICD-10) BIBIANA BREEN [facility] 02/19/2025 Admitting Diagnosis Nicotine dependence, cigarettes, in remission / F17.211(ICD-10) CRICKET RINCON [facility] PROCEDURES No Procedure Records Found RESULTS PROGRESS NOTE Observed: 08/02/2025 10:00 AM Status: COMPLETED Source: [facility] HPI, PHYSICAL EXAMINATION & PLAN POST-OP HPI: [...] 228 lb 12.8 oz (104 kg) Comment: [facility] BMI 38.07 kg/m? Physical Exam Constitutional: Appearance: [...] 2 tablets by mouth daily. NYSTATIN (MYCOSTATIN) 575992 UNIT/ML SUSPENSION Take 5 mL (500,000 Units) [...] Moore DO as Surgeon (General Surgery) Gaye Rodrigez, RN as Registered Nurse [1] Outpatient Encounter [...] not taking: Reported on 08/02/2025) nystatin (Mycostatin) 871621 UNIT/ML suspension Take 5 mL (500,000 Units) [...] hesitate to call or reach out via [employer] with any questions or concerns. Visit Completed by: Katlyn Bradford, , RDN, LD OFFICE VISIT Observed: 08/02/2025 10:00 AM Status: COMPLETED Source: [facility] [id number] Jaime Oneill [birth year] Date Provider Department Center [...] Father Sister Alive Brother Alive Level of Service:47083 [place] POSTOP FOLLOW UP VISIT RELATED TO ORIGINAL PX Reason for Visit and Comments: Bariatrics Post Op Follow-up [884] - 1m 36 Observed: 07/23/2025 10:55 AM Status: COMPLETED Source: [facility] 06/30/25 LRYGB W/ HH MP Outside Labs [facility] 07-08-25: Elevated AST: 42 and ALT: 66 (noting pt just had surgery 8 days prior to lab draw) Elevated B12: 1798 Elevated iron: 41 Sent patient message via [employer] to assess vitamin regimen. Pending response. -sent list of low iron foods -encouraged adequate hydration for B12 36 Observed: 07/06/2025 9:20 AM Status: COMPLETED Source: [facility] 06/30/25 LRYGB W/ HH MP Last OV-yesterday w MP, next 08/02/25 w MP Incoming call from female that states she is calling for pt. States pt was in yesterday for one week POP and forgot to ask when she is able to drive. Female indicated that can respond to pt via K[employer] or call the caller back. Unable to call, as no contact info left. Will send Isonast to pt that she is able to drive now as long as she is can do so without pain and is no longer taking narcotics. OFFICE VISIT Observed: 07/05/2025 8:40 AM Status: COMPLETED Source: [facility] [id number] Jaime Oneill F Date Provider Department Center 07/05/2025 15580-YDOOGAXJORDON ZULUAGA [facility] None Family History Problem Relation Age of Onset Obesity Mother Diabetes Mother High Blood Pressure Mother Obesity Father Diabetes Father High Blood Pressure Father Heart disease Father Stroke Father Heart disease Sister Obesity Sister Heart disease Brother High Blood Pressure Brother Family Status - Relation Status Age at Mother Alive Father Sister Alive Brother Alive Level of Service:79242 [place] POSTOP FOLLOW UP VISIT RELATED TO ORIGINAL PX Reason for Visit and Comments: Bariatrics Post Op Follow-up [884] - 1wk PROGRESS NOTE Observed: 07/05/2025 8:40 AM Status: COMPLETED Source: [facility] HPI, PHYSICAL EXAMINATION & PLAN POST-OP HPI: [...] water until 1 month office visit. The director industrial museum is to discuss and start supplements. Patient [...] MD Saurabh CORTES [address] [facility] [phone] - [phone] And if not done at a [facility] Facility, please send to: [place] [address] Patient Name: Jaime Oneill - 1965 Order Created by : Doreen Neely MA Standing Status: Future Number of Occurrences: 1 Expected Date: 07/14/2025 Expiration Date: 06/30/2026 Folate These orders are set for an approximate date - they can be drawn up to 3 months prior to the Expected Date on this Req. Please send results to: MD Saurabh CORTES Osmine [address] [facility] [address] - [phone] And if not done at a [facility] Facility, please send to: [address], [facility] Patient Name: Jaime Wiley 1965 Order Created by : Doreen Neely MA Standing Status: Future Number of Occurrences: 1 Expected Date: 07/14/2025 Expiration Date: 06/30/2026 Iron These orders are set for an approximate date - they can be drawn up to 3 months prior to the Expected Date on this Req. Please send results to: MD Saurabh CORTES Gabi [address] [facility] [phone] - [phone] And if not done at a [facility] Facility, please send to: [address], [address] Patient Name: Jaime Wiley 1965 Order Created by : Doreen Neely MA Standing Status: Future Number of Occurrences: 1 Expected Date: 07/14/2025 Expiration Date: 06/30/2026 Ferritin These orders are set for an approximate date - they can be drawn up to 3 months prior to the Expected Date on this Req. Please send results to: MD Saurabh CORTES [address] [facility] [phone] - [phone] And if not done at a [facility] Facility, please send to: [place] [address] Patient Name: Jaime Wiley 1965 Order Created by : Doreen Neely MA Standing Status: Future Number of Occurrences: 1 Expected Date: 07/14/2025 Expiration Date: 06/30/2026 Magnesium These orders are set for an approximate date - they can be drawn up to 3 months prior to the Expected Date on this Req. Please send results to: MD Saurabh CORTES [address] [facility] [phone] - [phone] And if not done at a [facility] Facility, please send to: [place] [address] Patient Name: Jaime Wiley 1965 Order Created by : Doreen Neely MA Standing Status: Future Number of Occurrences: 1 Expected Date: 07/14/2025 Expiration Date: 06/30/2026 Vitamin B12 These orders are set for an approximate date - they can be drawn up to 3 months prior to the Expected Date on this Req. Please send results to: MD Saurabh CORTES [address] [facility] [phone] - [phone] And if not done at a [facility] Facility, please send to: [address], [facility] Patient Name: Jaime Wiley 1965 Order Created [...] MD - [address] [place] [address] [facility] [phone] - [phone] And if not done at a [facility] Facility, please send to: [place] [address] Patient Name: Jaime Oneill - 1965 Order Created by : Doreen Neely MA Standing Status: Future Number of Occurrences: 1 Expected Date: 07/14/2025 Expiration Date: 06/30/2026 CBC These orders are set for an approximate date - they can be drawn up to 3 months prior to the Expected Date on this Req. Please send results to: KELL LAWLER MD - [address] [facility] [address] [facility] [phone] - [phone] And if not done at a [facility] Facility, please send to: [place] [address] Patient Name: Jaime Wiley 1965 Order Created [...] storage and fibrosis, respectively. NAFLD Activity Score (TMAIKO): Steatosis: 1 (5-33%) Lobular inflammation (foci per [...] 2 tablets by mouth daily. NYSTATIN (MYCOSTATIN) 303786 UNIT/ML SUSPENSION Take 5 mL (500,000 Units) [...] mouth daily. 60 tablet 11 nystatin (Mycostatin) 179550 UNIT/ML suspension Take 5 mL (500,000 Units) [...] [] celecoxib (CeleBREX) capsule 400 mg [] buzKPLPKerrtl-typhfnmqgre-thrapbgvsgd (TAP) syringe [] diatrizoate meglumine-sodium (Gastrografin) 66-10 [...] Observed: 07/05/2025 8:40 AM Status: COMPLETED Source: [facility] 1 WEEK VISIT POST-OPERATIVE DIETITIAN Date: [...] completed by: Katlyn Bradford MS, RDN, LD 36 Observed: 07/02/2025 1:07 PM Status: COMPLETED Source: [facility] Attempted to call patient fo r follow up to inpatient hospital stay. Left voice mail with my direct number and request for return call. DISCHARGE SUMMARY Observed: 07/01/2025 1:37 PM Status: COMPLETED Source: [facility] Discharge Summary Jaime Oneill : 1965 ADMIT DATE: 06/30/2025 DISCHARGE DATE: 07/01/25 PRIMARY CARE PHYSICIAN: KELL LAWLER MD VISIT STATUS: Admission CODE STATUS: Prior DISCHARGE DIAGNOSES: Principal Problem: Morbid obesity with BMI of 40.0-44.9, adult ([facility]) Active Problems: Obesity, morbid, BMI 40.0-49.9 ([facility]) BMI Classification: Estimated body mass index is [...] Your Medications These medications were sent to [facility] [address] [place] [address] Hours: Saturday to Saturday 10 am to 6 pm ondansetron ODT 4 MG disintegrating tablet oxyCODONE 5 MG immediate release tablet DIET: No diet orders on file ACTIVITY: No heavy lifting. COMPLEXITY OF FOLLOW UP: [x] Moderate Complexity: follow up within 7-14 calendar days (98528) [] Severe Complexity: follow up within 7 calendar days (74013) FOLLOW UP TESTING, PENDING RESULTS OR REFERRALS AT TRANSITIONAL CARE VISIT: [] Yes [x] No PENDING STUDIES: No DISPOSITION: Home FACILITY/HOME CARE AGENCY NAME: m/a Follow up with Kell Lawler MD [address] [facility] [address] [facility] [phone] Jordon Moore, [address] [facility] [address] [facility] [address] Follow up in 2 week(s) postop check DISCHARGE TIME: > 30 minutes SIGNED: Antoine Stiles MD General Surgery Resident 07/02/25 6:30 AM This note may have been dictated using [employer] Medical Practice Edition 2.6 and/or [employer] Verify Voice Recognition Feature. The document was proofread; however, unrecognized voice recognition living manager errors may be present. PROGRESS NOTE Observed: 07/01/2025 8:44 AM Status: COMPLETED [facility] Preliminary negative for nohemi oro PROGRESS NOTE Observed: 07/01/2025 8:21 AM Status: COMPLETED [facility] Attestation signed by Jordon Moore DO at 07/23/2025 4:03 PM Doing well day 1 from Operation: Laparoscopic Diana-en-Y gastric bypass procedure No events overnight Vitals OK Ugi this am Advance diet Wounds ok Dvt prophyaxis Dc planning when stable. [facility] [place] Patient Name: Jaime Oneill Date: 07/01/25 MIS-General [...] 07/01/2025 1:19 AM Statu s: F Source: [facility] Order Comment: If patient on coumadin within 4 days prior. TYPE CODE TESTS RESULT OUT OF RANGE REFERENCE UNITS LAB [id number] PROTHROMBIN TIME 10.5 9.0-12.0 s LAB [id number] INR 1.0 0.9-1.1 Result Comment: Recommended Anticoagulant [...] to prevent Myocardial Infarction Performed By: #### [id number] ## ## C Consultant: HEATHER NORIEGA ([id number]) [address] CBC (HEMOGRAM) Collected: 07/01/2025 1:19 AM Status: F Source: [facility] TYPE CODE TESTS RESULT OUT OF RANGE REFERENCE UNITS LAB [id number] WBC 10.7 3.6-10.7 10*3/uL LAB [id number] RBC 4.06 3.80-5.20 10*6/uL LAB [id number] HEMOGLOBIN 12.0 11.7-16.0 g/dL LAB [id number] HEMATOCRIT 36.8 35.0-47.0 % LAB [id number] MCV 90.6 77.0-99.0 fL LAB [id number] MCH 29.6 26.0-34.0 pg LAB [id number] MCHC 32.6 30.5-36.0 % LAB 3553589 RDW 13.1 11.5-15.0 % LAB [id number] PLATELET COUNT 245 140-440 10*3/uL LAB [id number] MPV 10.9 9.0-12.7 fL Performed By: #### [id number] ## ## C Consultant: HEATHER NORIEGA ([id number]) [address] BASIC METABOLIC PANEL Collected: 2024 1:19 AM Status: F Source: [facility] TYPE CODE TESTS RESULT OUT OF RANGE REFERENCE UNITS LAB [id number] SODIUM 133 Low 136-145 mmol/L LAB [id number] POTASSIUM 4.0 3.5-5.1 mmol/L Result Comment: Plasma potas sium values may be up to 0.5 mmol/L lower than serum values. LAB 1699209 CHLORIDE 104 98-107 mmol/L LAB [id number] CARBON DIOXIDE 23 23-31 mmol/L LAB 9873798 UREA NITROGEN 20 9-23 mg/dL LAB 9361500 CREATININE 0.71 0.57-1.11 mg/dL LAB 0190443 GLUCOSE 154 High 82-115 mg/dL LAB 7511102 CALCIUM 8.6 Low 8.8-10.0 mg/dL LAB [id number] ANION GAP (JAMES, CALCULATED) 6 3-13 mmol/L LAB [id number] GLOMERULAR FILTRATION RATE ML/MIN/1.73 SQ M.PREDICTED >90.0 >60.0 mL/min/1. 73m*2 Result Comment: Calculation based on the Chronic Kidney Disease Epidemiology Collaboration (CKD-EPI) equation refit without adjustment for race Performed By: #### [id number] ### # C Consultant: HEATHER NORIEGA ([id number]) [facility] ([facility]) [address] [place] [address] NURSING NOTE Observed: 06/30/2025 3:04 PM Status: COMPLETED [facility] Virtual Admission completed. Patient instructed to use call light to call for assistance if needed. NURSING NOTE Observed: 06/30/2025 11:09 AM Status: COMPLETED Source: [facility] Report called to Saray BENITO on H6. Pt's family updated. NURSING NOTE Observed: 06/30/2025 10:46 AM Status: COMPLETED Source: [facility] [employer] [facility] Patients daughter Cyndee zhang via phone [phone] Observed: 06/30/2025 10:30 AM Status: COMPLETED Source: [facility] Patient: Jaime Oneill Procedure Summary Date: 06/30/25 Room / Location: [address] Operating Room Anesthesia Start: 729 Anesthesia Stop: 956 Procedures: LAPAROSCOPIC DIANA-EN-Y GASTRIC BYPASS (Abdomen) LIVER BIOPSY (Abdomen) HIATAL HERNIA REPAIR (Abdomen) Diagnosis: Morbid obesity with BMI of 40.0-44.9, adult ([facility]) Surgeons: Jordon Moore DO Responsible Provider: Jayden [...] Observed: 06/30/2025 10:30 AM Status: COMPLETED Source: [facility] Patient: Jaime Oneill Procedure Summary Date: 06/30/25 Room / Location: [address] Operating Room Anesthesia Start: 729 Anesthesia Stop: 956 Procedures: LAPAROSCOPIC DIANA-EN-Y GASTRIC BYPASS (Abdomen) LIVER BIOPSY (Abdomen) HIATAL HERNIA REPAIR (Abdomen) Diagnosis: Morbid obesity with BMI of 40.0-44.9, adult ([facility]) Surgeons: Jordon Moore DO Responsible Provider: Jayden [...] leatha: 06/30/2025 10:03 AM Status: F Source: [facility] [employer] [facility] TYPE CODE TESTS RESULT OUT OF RANGE REFERENCE UNITS LAB [id number] HEMOGLOBIN 13.0 11.7-16.0 g/dL LAB [id number] HEMATOCRIT 40.6 35.0-47.0 % Performed By: #### [id number] ## ## C Consultant: HEATHER NORIEGA ([id number]) [facility] ([address] BASIC METABOLIC PANEL Collected: 2024 10:03 AM Status: F Source: [employer] [facility] TYPE CODE TESTS RESULT OUT OF RANGE REFERENCE UNITS LAB 2695891 SODIUM 139 136-145 mmol/L LAB 2605502 POTASSIUM 3.4 Low 3.5-5.1 mmol/L Result Comment: Plasma potas sium values may be up to 0.5 mmol/L lower than serum values. LAB 5058779 CHLORIDE 101 98-107 mmol/L LAB [id number] CARBON DIOXIDE 24 23-31 mmol/L LAB 1074111 UREA NITROGEN 18 9-23 mg/dL LAB 9953212 CREATININE 0.82 0.57-1.11 mg/dL LAB 7774864 GLUCOSE 182 High 82-115 mg/dL LAB 2776159 CALCIUM 8.7 Low 8.8-10.0 mg/dL LAB [id number] ANION GAP (JAMES, CALCULATED) 14 High 3-13 mmol/L LAB 4723193 GLOMERULAR FILTRATION RATE ML/MIN/1.73 SQ M.PREDICTED 81.5 >60.0 mL/min/1. 73m*2 Result Comment: Calculation based on the Chronic Kidney Disease Epidemiology Collaboration (CKD-EPI) equation refit without adjustment for race Performed By: #### [id number] ### # C Consultant: HEATHER NORIEGA ([id number]) [facility] ([facility]) [address] [place] [address] TISSUE EXAM Collected: 8:41 AM Status: F [facility] TYPE CODE TESTS RESULT OUT OF RANGE REFERENCE UNITS PATHOLOGY 1499 LAB AP CASE REPORT Result Comment: Surgical Pat hology Case: [id number] Authorizing Provider: Jordon Moore DO Collected: 06/30/2025 0841 Ordering Location: [facility] Received: 06/30/2025 1159 Pathologist: Heather [...] of 40.0-44.9, adult (HCC), E66.01, Z68.41. PATHOLOGY [id number] LAB AP HISTO GROSS DESCRIPTION Received in formalin labeled liver biopsy are two rose-pink and brown tissue fragments measuring 0.6 and [...] characteristics determined by the clinical laboratories of [facility]. They have not been cleared by the [...] of false negativity on decalcified specimens. PATHOLOGY [id number] AP CASE PATHOLOGIST INTERP LOCATION [facility], [address] [place] [address], CLIA: [id number]; Joint Commission: [id number]; CAP: [id number] PATHOLOGY EMBDOC OUTGOING CLINICAL RESULTS EMBEDDED DOCUMENT Performed By: #### [id number] # ### C Consultant: HEATHER NORIEGA ([id number]) [facility] ([facility] [address] [place] [address] PROCEDURE NOTE Observed: 06/30/2025 7:48 AM Status: COMPLETED Source: [facility] Airway Date/Time: 06/30/2025 7:44 AM Reason: scheduled General Information and Staff Patient location during procedure: Procedural Resident/STATEMENT CLERK: KENTON Mckenna CRNA Performed: STATEMENT CLERK and SRNA Patient Condition Indications for airway [...] Observed: 06/30/2025 7:36 AM Status: COMPLETED Source: [facility] Peripheral Block Time Out: 06/30/2025 7:36 AM Patient location during procedure: Procedural Start time: 06/30/2025 7:36 AM End time: 06/30/2025 7:36 AM Reason for block: at surgeon's request and post-op pain management Staffing Performed: STATEMENT CLERK Resident/STATEMENT CLERK: KENTON Luciano CRNA Preanesthetic Checklist Completed: patient [...] supine Prep: ChloraPrep Patient monitoring: heart rate, sky cap, continuous pulse ox and continuous capnometry O2: [...] plane. and Local anesthetic injected without difficultyMedications korHYWHAanlib-srpyxtugztz-yhbsmvirgma (TAP) syringe - Injection 60 mL - 06/30/2025 7:36:00 AM OP NOTE Observed: 06/30/2025 7:32 AM Status: COMPLETED Source: [facility] Patient: Jaime Oneill Date of : 1965 Service Date: 06/30/25 PROCEDURE: Laparoscopic Diana-en-Y Gastric Bypass Laparoscopic Liver Biopsy Esophagogastrojejunoscopy Laparoscopic hiatal hernia PREOPERATIVE DIAGNOSES: Problem List[1] POSTOPERATIVE DIAGNOSES: same ANESTHESIA: General SURGEON: DR. Jordon Moore [employer] PRO: Dr. Becker was asked to help with [...] KUNAL. We then opened end of the idana limb with Enseal and a 25MM circular [...] Sheet Start Time: 800 Stop Time: 1000 Word Processor Operator: [] Resident [] Fellow [x] PA/WEIGHTER/HAMMER DRIVER [] Attending - Weight Loss Surgeon ASA [...] Observed: 06/30/2025 7:16 AM Status: COMPLETED Source: [facility] H&P reviewed. The patient wa s examined and there are no changes to the H&P. CBC (HEMOGRAM) Collected: 06/22/2025 2:49 PM Status: F Source: [facility] TYPE CODE TESTS RESULT OUT OF RANGE REFERENCE UNITS LAB [id number] WBC 8.7 3.6-10.7 10*3/uL LAB 8411962 RBC 4.24 3.80-5.20 10*6/uL LAB 5932002 HEMOGLOBIN 12.6 11.7-16.0 g/dL LAB 7403886 HEMATOCRIT 38.6 35.0-47.0 % LAB 3193661 MCV 91.0 77.0-99.0 fL LAB 6741017 MCH 29.7 26.0-34.0 pg LAB 3610860 MCHC 32.6 30.5-36.0 % LAB 7132289 RDW 12.8 11.5-15.0 % LAB 3250455 PLATELET COUNT 238 140-440 10*3/uL LAB [id number] MPV 10.7 9.0-12.7 fL Performed By: #### [id number] ## ## C Consultant: HEATHER NORIEGA ([id number]) [facility] ([address] BASIC METABOLIC PANEL Collected: 2024 2:49 PM Status: F Source: [facility] TYPE CODE TESTS RESULT OUT OF RANGE REFERENCE UNITS LAB 9724494 SODIUM 140 136-145 mmol/L LAB 1263257 POTASSIUM 4.1 3.5-5.1 mmol/L Result Comment: Plasma potas sium values may be up to 0.5 mmol/L lower than serum values. LAB 3308625 CHLORIDE 104 98-107 mmol/L LAB 7985171 CARBON DIOXIDE 30 23-31 mmol/L LAB 3172823 UREA NITROGEN 19 9-23 mg/dL LAB 6343037 CREATININE 0.86 0.57-1.11 mg/dL LAB 9048755 GLUCOSE 79 Low 82-115 mg/dL LAB 3385920 CALCIUM 9.7 8.8-10.0 mg/dL LAB [id number] ANION GAP (JAMES, CALCULATED) 6 3-13 mmol/L LAB 4737869 GLOMERULAR FILTRATION RATE ML/MIN/1.73 SQ M.PREDICTED 77.0 >60.0 mL/min/1. 73m*2 Result Comment: Calculation based on the Chronic Kidney Disease Epidemiology Collaboration (CKD-EPI) equation refit without adjustment for race Performed By: #### TEA [id number] #### C Consultant: HEATHER NORIEGA ([id number]) [address] ALBUMIN Collected: 2:49 PM Status: F Source: [facility] TYPE CODE TESTS RESULT OUT OF RANGE REFERENCE UNITS LAB [id number] ALBUMIN 4.0 3.4-4.8 g/dL Performed By: #### TEA BRYANT B45 #### C Consultant: HEATHER NORIEGA ([phone]) [facility] ([facility]) [address] [place] [address] HEMOGLOBIN A1C Collected: 06/22/2025 2:49 PM Status: F Source: [facility] TYPE CODE TESTS RESULT OUT OF RANGE REFERENCE UNITS LAB [id number] HEMOGLOBIN A1C 5.4 <5.7 %HbA1C Result Comment: [...] testing. Performed By: #### LAB90 ### # C Consultant: HEATHER NORIEGA ([id number]) [facility] ([facility]) [address] ANESTHESIA NOTE Observed: 06/22/2025 2:17 PM Status: COMPLETED Source: [employer] [facility] Patient: Jaime Oneill Procedure Information Date/Time: 06/30/25 0730 Procedures: LAPAROSCOPIC DIANA-EN-Y GASTRIC BYPASS (Abdomen) - Length of procedure: 180min LIVER BIOPSY (Abdomen) HIATAL HERNIA REPAIR, POSSIBLE OPEN (Abdomen) Location: [facility] OR [address] [place] [address] Operating Room Surgeons: Jordon Moore, DO Relevant [...] protocol. General eras Rin Benitez APRN - COLOR ARTIST MICHELLE Screening STOP-Bang Total Score: 4 Labs: [...] Observed: 06/22/2025 2:00 PM Status: COMPLETED Source: [facility] ADVANCED CARE PLANNING Jaime Oneill : 1965 [...] - DO NOT do CPR, intubation] [_] [DNR-OCCUPATIONAL HEALTH MANAGER - Comfort care only] [_] DNR form [...] patient and/or family/surrogate. Lorena Griffith APRN - [facility] Acute care [facility] 06/22/2025, 3:36 PM HISTORY AND PHYSICAL NOTE Observed: 06/11 2:00 PM Status: COMPLETED Source: [facility] Comprehensive Pre Surgical H istory and Physical ? Name: Jaime Oneill : 1965 (Age-59 y.o.) Date of Service: Pt seen/examined on 06/22/2025 Procedure Information Date/Time: 06/30/25 2430 Procedures: LAPAROSCOPIC DIANA-EN-Y GASTRIC BYPASS (Abdomen) - Length of procedure: 180min LIVER BIOPSY (Abdomen) HIATAL HERNIA REPAIR, POSSIBLE OPEN (Abdomen) Location: [facility] Operating Room Surgeons: Jordon Moore DO Chief [...] 03/17/25 Eval 03/02/25. Dietitian [x] Dashawn Workman Vibratory Pile Driver Cleared: 02/25/25 Cardiology [x] Jf Roe APRN Cleared 04/08/25 Pulmonary [x] Mele 02/19/25 [...] who we are asked to see/evaluate by [place] [id number] for pre-operative evaluation prior to ? LAPAROSCOPIC [...] denies hx of CAD, Cardiac stents, CHF, ID, TIA/CVA, diabetes, COPD, asthma, MICHELLE, DVT/PE or [...] Electronically signed by: Lorena Griffith APRN - COLOR ARTIST Date: 06/22/2025 at 3:36 PM [1] Family [...] Observed: 06/11 2:00 PM Status: COMPLETED Source: [facility] Comprehensive Pre Surgical H istory and Physical ? Name: Jaime Oneill : 1965 (Age-59 y.o.) Date of Service: Pt seen/examined on 06/22/2025 Procedure Information Date/Time: 06/30/25 0730 Procedures: LAPAROSCOPIC DIANA-EN-Y GASTRIC BYPASS (Abdomen) - Length of procedure: 180min LIVER BIOPSY (Abdomen) HIATAL HERNIA REPAIR, POSSIBLE OPEN (Abdomen) Location: [facility] Operating Room Surgeons: Jordon Pozsgay, DO Chief Complaint: Morbid obesity with BMI of 40.0-44.9, adult ([facility]) [E66.01, Z68.41] ASSESSMENT/PLAN: Plan based on PAT protocol for this intermediate level 2 risk procedure/surgery. Based on the below evaluation, the benefits of the planned procedure likely exceed the risks. The patient is medically optimized to proceed with the planned procedure without any further cardiopulmonary testing. 1) Morbid obesity with BMI of 40.0-44.9, adult ([facility]) [E66.01, Z68.41] - Managed per surgery - [...] 03/17/25 Eval 03/02/25. Dietitian [x] Dashawn Workman Vibratory Pile Driver Cleared: 02/25/25 Cardiology [x] Jf Roe CHIEF TECHNICAL OFFICER Cleared 04/08/25 Pulmonary [x] Mele 02/19/25 Referred [...] who we are asked to see/evaluate by [facility] for pre-operative evaluation prior to ? [...] denies hx of CAD, Cardiac stents, CHF, ID, TIA/CVA, diabetes, COPD, asthma, MICHELLE, DVT/PE or [...] Electronically signed by: Lorena Griffith APRN - COLOR ARTIST Date: 06/22/2025 at 3:36 PM [1] Family [...] Brother Jason High Blood Pressure Brother Jason [id number] Observed: 06/22/2025 2:00 PM Status: COMPLETED Source: [employer] [facility] Medication List Accurate as of June 22, [...] your scheduled surgery time. Please bring your [email or web address] Surgical folder and medication list with you day of surgery. We encourage you to write down any questions you may have for the surgeon, anesthesiologist, or other members of the surgical team and bring it with you the day of surgery. Please bring photo ID and insurance information. 36 Observed: 06/07/2025 9:58 AM Status: COMPLETED Source: [employer] [facility] No lovenox indicated DVT PPX Risk Factors [...] Observed: 06/07/2025 9:10 AM Status: COMPLETED Source: [employer] [facility] Patient History/Assessment S shon: The patient is [...] 03/17/25 Eval 03/02/25. Dietitian [x] Dashawn Workman Vibratory Pile Driver Cleared: 02/25/25 Cardiology [x] Jf Roe APRN Cleared 04/08/25 Pulmonary [x] Mele 02/19/25 [...] Observed: 06/07/2025 9:10 AM Status: COMPLETED Source: [facility] DOS: 06/30/25 Procedure: RYGB PAT Date: 06/22/25 [...] Observed: 06/07/2025 9:10 AM Status: COMPLETED Source: [employer] [facility] [id number] Jaime Oneill [birth year] F Date Provider Department Center 06/07/2025 [id number] MOORE [facility] SURG None Family History Problem Relation Age of Onset Obesity Mother Diabetes Mother High Blood Pressure Mother Obesity Father Diabetes Father High Blood Pressure Father Heart disease Father Stroke Father Heart disease Sister Obesity Sister Heart disease Brother High Blood Pressure Brother Family Status - Relation Status Age at Mother Alive Father Sister Alive Brother Alive Level of Service:61265 [place] OFFICE/OUTPATIENT ESTABLISHED MOD MDM 30 MIN Reason for Visit and Comments: Weight Management [645] - FPOV 36 Observed: 05/25/2025 9:54 AM Status: COMP LETED Source: [facility] [employer] [facility] Orders signed 36 Observed: 05/25/2025 8:41 AM Status: COMPLETED [facility] Noted, thank you. 36 Observed: 05/25/2025 7:08 AM Status: COMPLETED Source: [facility] Noted, thank you. 36 Observed: 05/24/2025 3:37 PM Status: COMPLETED Source: [facility] [employer] [facility] SURGERY SCHEDULED AND PATIEN T NOTIFIED Surgeon: PAMELA Procedure: LRYGB W/ HH Surgery Date: 06/30/25 Surgery Time: 730AM Time Needed: 180MINS FPOV Date: 06/07/25 Time: 910AM 1WK POP Date: 07/05/25 Time: 840AM 1M POP Date: 08/02/25 Time: 1000AM Patient aware of required pre-operative class and instructed to sign up via website: YES 36 Observed: 05/24/2025 11:34 AM Status: COMPLETED [facility] Please schedule surgery for 06/30/25, order placed. 36 Observed: 05/24/2025 10:08 AM Status: COMPLETED [facility] Patient takes Anticoagulant: NO Name: Prescriber: Patient [...] Observed: 05/24/2025 9:48 AM Status: COMPLETED [facility] Auth APPROVED: Yes Approved for: inpatient Insurance: [employer] ID number: [id number] Authorization number: [id number] Valid dates: 06/22/2025 - 08/18/2025 Notes: INPATIENT AUTH APPROVAL FOR CPT 93907, 75338, 98895 / SCANNED TO MEDIA 36 Observed: 05/20/2025 10:22 AM Status: COMPLETED [facility] Noted, thank you. 36 Observed: 05/20/2025 9:30 AM Status: COMPLETED Source: [facility] [employer] [facility] Auth submitted: Yes Insurance: [employer] MEDICARE ID number: [id number] Notes: INPATIENT AUTH REQUESTED FOR CPT 18814, 91896, 23145 PENDING AUTH # [id number] 36 Observed: 05/11/2025 11:44 AM Status: COMPLETED [facility] Lap Diana En Y and Liver Bx w /HH In CCN 36 Observed: 05/11/2025 11:18 AM Status: COMPLETED [facility]: [facility] She is good to go now! ?? Me dacia was able to move her money, so she can be scheduled. Abdulaziz Valderrama Etl Database Developer - Weight Management Ins BNA money was applied to incorrect account- Billing fixed it on 05/11/25 36 Observed: 05/11/2025 11:14 AM Status: COMPLETED Source: [facility] Ready for submission. Thank you. Nicotine is scanned with chart review- I faxed to 260 today. 29 Observed: 04/27/2025 9:39 AM Status: COMPLETED Source: [facility] Addended by: EMI RAMIREZ on: 04/27/2025 09:39 AM Modules accepted: Orders 29 Observed: 04/27/2025 8:22 AM Status: COMPLETED Source: [facility] Addended by: SALO CRUZ on: 04/27/2025 08:22 AM Modules accepted: Orders 36 Observed: 04/27/2025 8:21 AM Status: COMP LETED Source: [facility] Mendoza please [id number] Observed: 04/22/2025 11:41 AM Status: COMPLETED Source: [facility] Results reviewed and CCN upd ated [id number] Observed: 04/22/2025 10:30 AM Status: COMPLETED Source: [facility] Results received, placed in physician folder for review. PROGRESS NOTE Observed: 04/08/2025 1:40 PM Status: COMPLETED Source: [facility] BARIATRIC CARE CENTER PRE-OP MEDICAL MANAGEMENT PROGRESS [...] obesity with BMI of 40.0-44.9, adult (HCC) 2. Gastroesophageal reflux disease without esophagitis Plan: [...] Observed: 04/08/2025 1:40 PM Status: COMPLETED Source: [facility] [employer] [facility] [id number] Jaime Oneill [birth year] Date Provider Department Center 04/08/2025 [id number]-CJDHGJULIANA BHATIA*ACH [facility] SURG None Family History Problem Relation Age of Onset Obesity Mother Diabetes Mother High Blood Pressure Mother Obesity Father Diabetes Father High Blood Pressure Father Heart disease Father Stroke Father Heart disease Sister Obesity Sister Heart disease Brother High Blood Pressure Brother Family Status - Relation Status Age at Mother Alive Father Sister Alive Brother Alive Level of Service:20293 [place] OFFICE/OUTPATIENT ESTABLISHED [facility] 10 MIN Reason for Visit and Comments: Weight Management [645] - D/E FINAL 3 OF 3 OFFICE VISIT Observed: 04/08/2025 10:30 AM Status: COMPLETED Source: [facility] [id number] Jaime Oneill Date Provider Department Center 04/08/2025 [id number] QUIROZ SHMG ACH ELIZABETH SHMGCV [address] Family History Problem Relation Age of Onset Obesity Mother Diabetes Mother High Blood Pressure Mother Obesity Father Diabetes Father High Blood Pressure Father Heart disease Father Stroke Father Heart disease Sister Obesity Sister Heart disease Brother High Blood Pressure Brother Family Status - Relation Status Age at Mother Alive Father Sister Alive Brother Alive Level of Service:76359 [place] OFFICE/OUTPATIENT NEW LOW MDM 30 MINUTES Reason for Visit and Comments: Cardiac Clearance [882] PROGRESS NOTE Observed: 04/08/2025 10:30 AM Status: COMPLETED Source: [facility] C ARDI[facility] [address] [facility] [address] Dept: [phone] Dept Visit Type: New NAME: Jaime Oneill [...] decrease the likelihood of future cardiovascular events. MG -Cardiology At [facility] [place] remain available to assist in the patient's [...] , Rfl: cholecalciferol (Vitamin D-3) 250 MCG (50523 UT) tablet, Take 10,000 Units by mouth [...] Heart disease Brother High Blood Pressure Brother [id number] Observed: 03/25/2025 2:37 PM Status: COMPLETED Source: [facility] Patient: Jaime Oneill Procedure Summary Date: 03/25/25 Room / Location: [facility] ENDO SEC 3 / ARCH Gastroenterology [...] Observed: 03/25/2025 2:36 PM Status: COMPLETED Source: [facility] Patient: Jaime Oneill Procedure Summary Date: 03/25/25 Room / Location: [facility] ENDO SEC 3 / ARCH Gastroenterology [...] EXAM Collected: 2:31 PM Status: F Source: [facility] [employer] [facility] [employer] TYPE CODE TESTS RESULT OUT OF RANGE REFERENCE UNITS PATHOLOGY 1499 LAB AP CASE REPORT Result Comment: Surgical Pat hology Case: [id number] Authorizing Provider: Jordon Moore DO Collected: 03/25/2025 1431 Ordering Location: [facility] Arch Endoscopy Received: 03/26/2025 0835 Pathologist: Nithin [...] disease without esophagitis - K21.9 [ICD-10-CM] PATHOLOGY [id number] LAB AP HISTO GROSS DESCRIPTION Received in [...] characteristics determined by the clinical laboratories of [facility]. They have not been cleared by the [...] of false negativity on decalcified specimens. [facility] EMBEDDED DOCUMENT Performed By: #### [id number] # ### C Consultant: HEATHER NORIEGA ([phone]) [facility] ([facility]) [address] [place] [address] HISTORY AND PHYSICAL NOTE Observed: 03/11 2:23 PM Status: COMPLETED Source: [facility] General Surgery History and Physical HPI: Jaime [...] Observed: 03/25/2025 2:15 PM Status: COMPLETED Source: [employer] [facility] Patient: Jaime Oneill Procedure Information Date/Time: 03/25/25 [...] Observed: 03/25/2025 2:02 PM Status: COMPLETED Source: [facility] Patient Name: Jaime Oneill Procedure Date: 03/25/2025 2:02 PM Gender: Female Date of : 1965 Age: 59 Admit Type: Outpatient Note Status: Finalized Endoscopist: Jordon Moore DO, [id number] Procedure: Upper GI endoscopy Indications: Gastro-esophageal reflux [...] immediate complications. Procedure Code(s): --- Professional --- 61861, Esophagogastroduodenoscopy, flexible, transoral; with biopsy, single or multiple --- Technical --- 90828, Esophagogastroduodenoscopy, flexible, transoral; with biopsy, single or multiple Diagnosis Code(s): --- Professional --- K29.70, Gastritis, unspecified, without bleeding K44.9, Diaphragmatic hernia without obstruction or gangrene K21.9, Gastro-esophageal reflux disease without esophagitis --- Technical --- K29.70, Gastritis, unspecified, without bleeding K44.9, Diaphragmatic hernia without obstruction or gangrene K21.9, Gastro-esophageal reflux disease without esophagitis CPT copyright 2021 [employer]. All rights reserved. The codes documented in this report are preliminary and upon alcohol law enforcement agent review may be revised to meet current compliance requirements. Attending Participation: I personally performed the entire procedure. Jordon Moore DO 03/25/2025 2:33:42 PM This report has been signed electronically. Number of Addenda: 0 Note Initiated On: 03/25/2025 2:02 PM 36 Observed: 03/17/2025 8:35 AM Status: COMPLETED Source: [facility] Patient had informed that e was established at [facility]- clearance form faxed. They responded not a patient. Spoke with patient again. She cannot remember exactly where she went before it's been years. She will schedule with [facility]. Phone number provided. 36 Observed: 03/15/2025 11:19 AM Status: COMPLETED Source: [facility] Patient call back- she goes to [facility]- clearance request faxed 36 Observed: 03/15/2025 9:09 AM Status: COMPLETED Source: [facility] Spoke to patient. She someho w thought she had to have UGI BEFORE the EGD and that was what was worrying her. I assured her it was fine to schedule the UGI on April 19. She states she will call me back with name of her Web Software Engineer so I can fax a clearance request. 36 Observed: 03/15/2025 8:58 AM Status: COMPLETED Source: [facility] Left another for patient requesting ret call. 36 Observed: 03/11/2025 4:23 PM Status: COMPLETED Source: [facility] Left VM to call me at direct line. Unsure what the confusion/question is. 36 Observed: 03/11/2025 1:10 PM Status: COMPLETED Source: [facility] MP Pt last seen yesterday w [facility] for D&E 2/3. Pt called and left message that the soonest she can get UGI done at [facility] is 04/19/25. [facility]-does she need to try another location or just wait and have a 4th D&E in April? 36 Observed: 03/11/2025 12:42 PM Status: COMPLETED Source: [facility] Order for recheck signed. 36 Observed: 03/11/2025 8:49 AM Status: COMPLETED Source: [facility] Pre-op patient Mycharted pt regarding high vitamin D (77). Rec'd pt stop taking 10,000 IU vitamin D daily for now and will recheck lab in three months. 36 Observed: 03/11/2025 8:32 AM Status: COMPLETED Source: [facility] ----- Message from Trish Tran APRN - ERIN sent at 03/10/2025 12:58 PM EDT ----- Vit D is elevated - thanks THYROID STIMULATING HORMONE Collected: 03/10/2025 10: 01 AM Status: F Source: [facility] Order Comment: These orders are set for an approximate date - they can be drawn up to 3 months prior to the Expected Date on this Req. Please send results to: KELL LAWLER MD - [address] [address] - [phone] And if not done at a [facility] Facility, please send to: [facility] [place] - [address] [place] [address], [address] - [facility], [address] Patient Name: Jaime Oneill - 1965 Order Created by : Mattie Brady LPN TYPE CODE TESTS RESULT OUT OF RANGE REFERENCE UNITS LAB [id number] THYROID STIMULATING HORMONE 0.45 0.35-4.94 uIU/mL Performed By: #### [id number], L AB129, LAB94 #### C Consultant: HEATHER NORIEGA ([phone]) [facility] ([facility]) [address] IRON Collected: 10:01 AM Status: F Source: [facility] Order Comment: These orders are set for an approximate date - they can be drawn up to 3 months prior to the Expected Date on this Req. Please send results to: KELL LAWLER MD - [address] [facility] [id number] - [phone] And if not done at a [facility] Facility, please send to: [address] [address] Patient Name: Jaime Oneill 1965 Order Created by : Mattie Brady LPN TYPE CODE TESTS RESULT OUT OF RANGE REFERENCE UNITS LAB [id number] IRON, TOTAL 81 50-170 ug/dL Performed By: #### [id number], L AB129, LAB94 #### C Consultant: HEATHER NORIEGA ([id number]) [facility] ([facility]) [address] VITAMIN D DEFICIENCY SCREENI NG (VIT D 25) Collected: 03/10/2025 10:01 AM Status: F Source: [facility] TYPE CODE TESTS RESULT OUT OF RANGE REFERENCE UNITS LAB [id number] VIT D 25-OH, TOTAL 77 High See comment ng/mL Result Comment: ORDER COMMEN TS: These orders are set for an approximate date - they can be drawn up to 3 months prior to the Expected Date on this Req. Please send results to: KELL LAWLER MD - [address] [facility] [id number] - [phone] And if not done at a [facility] Facility, please send to: [address], [address] Patient Name: Jaime Oneill - 1965 Order Created by : Mattie Brady LPN Target concentration: 30 - 40 ng/mL; toxicity seen at concentrations >100 ng/mL Less than 20 ng/mL: Indicative of Vit D deficiency Test performed by [employer], measuring Total Vitamin D, not individual fractions. Performed By: #### [id number], L AB129, LAB94 #### C Consultant: HEATHER NORIEGA ([phone]) [facility] ([facility]) [address] [place], [place] [id number] [place] [address] ZINC (BKR QUEST) Collected: 10:01 AM Status: F Source: [facility] Order Comment: These orders are set for an approximate date - they can be drawn up to 3 months prior to the Expected Date on this Req. Please send results to: KELL LAWLER MD - [address] [address] - [phone] And if not done at a [facility] Facility, please send to: [facility] - [address] [place] [address], [address] [facility], [address] Patient Name: Jaime Oneill - 1965 Order Created by : Mattie Brady LPN TYPE CODE TESTS RESULT OUT OF RANGE REFERENCE UNITS LAB [address] ZINC 82 60-130 mcg/dL Result Comment: This test was developed and its analytical performance characteristics have been determined by [employer] [place], [place]. It has not been cleared or approved by the U.S. Food and Drug Administration. This assay has been validated pursuant to the CLIA regulations and is used for clinical purposes. Test Performed by [employer], [employer] [facility], [address] [place] [address] Cholo Alcantara M.D., Ph.D., Director of Laboratories , CLIA [id number] Performed By: #### [id number] ## ## [employer] ([employer]) [address] [place] [address] RUST CBC (HEMOGRAM) Collected: 03/10/2025 10:01 AM Status : F Source: [facility] Order Comment: These orders are set for an approximate date - they can be drawn up to 3 months prior to the Expected Date on this Req. Please send results to: KELL LAWLER MD - [address] [facility] [address] - [phone] And if not done at a [facility] Facility, please send to: [facility] - [address] [place] [address], [address], [address] Patient Name: Jaime Oneill - 1965 Order Created by : Mattie Brady LPN TYPE CODE TESTS RESULT OUT OF RANGE REFERENCE UNITS LAB [id number] WBC 5.7 3.6-10.7 10*3/uL LAB 2830759 RBC 4.48 3.80-5.20 10*6/uL LAB 1918075 HEMOGLOBIN 13.3 11.7-16.0 g/dL LAB 5214413 HEMATOCRIT 41.0 35.0-47.0 % LAB 2237081 MCV 91.5 77.0-99.0 fL LAB 5457351 MCH 29.7 26.0-34.0 pg LAB 7485549 MCHC 32.4 30.5-36.0 % LAB 9953055 RDW 12.9 11.5-15.0 % LAB 6479458 PLATELET COUNT 263 140-440 10*3/uL LAB 2678263 MPV 10.9 9.0-12.7 fL Performed By: #### [id number] ## ## C Consultant: HEATHER NORIEGA ([id number]) [facility] [address] [place] [address] VITAMIN B1, WHOLE BLOOD (BKR QUEST) Col lected: 03/10/2025 10:01 AM Status: F Source: [facility] Order Comment: These orders are set for an approximate date - they can be drawn up to 3 months prior to the Expected Date on this Req. Please send results to: KELL LAWLER MD - [address] [place] [address] [facility] [address] - [phone] And if not done at a [facility] Facility, please send to: [facility] - [address] [place] [address], [address], [address] Patient Name: Jaime Oneill - 1965 Order [...] analytical performance characteristics have been determined by [employer] [place], [place]. It has not been cleared or approved by the U.S. Food and Drug Administration. This assay has been validated pursuant to the CLIA regulations and is used for clinical purposes. Test Performed by [facility], [employer] [facility], [address] [place] [address] Cholo Alcantara M.D., Ph.D., Director of Laboratories , CLIA [id number] Performed By: #### [id number] ## ## [employer] ([employer]) [address] [place] [address] RUST MAGNESIUM Collected: 5 10:01 AM Status: F Source: [facility] TYPE CODE TESTS RESULT OUT OF RANGE REFERENCE UNITS LAB 1796325 MAGNESIUM 1.9 1.6-2.6 mg/dL Result Comment: ORDER COMMEN TS: These orders are set for an approximate date - they can be drawn up to 3 months prior to the Expected Date on this Req. Please send results to: KELL LAWLER MD - [address] [address] - [phone] And if not done at a [facility] Facility, please send to: [facility] [place] - [address] [place] [address], [address], [address] Patient Name: Jaime Oneill - 1965 Order Created by : Mattie Brady LPN Higher values can be expected in females during menses. Performed By: #### [id number], L AB18, LAB67, LAB68, LAB17, LAB69 #### C Consultant: HEATHER NORIEGA ([id number]) [facility] ([facility]) [address] [place] [address], [place] [address] RUST COMPREHENSIVE METABOLIC PANEL Collected : 03/10/2025 10:01 AM Status: F Source: [facility] Order Comment: These orders are set for an approximate date - they can be drawn up to 3 months prior to the Expected Date on this Req. Please send results to: KELL LAWLER MD - [address] [address] - [phone] And if not done at a [facility] Facility, please send to: [facility] - [address] [place] [address], [address] - [facility], [address] Patient Name: Jaime Oneill - 1965 Order Created by : Mattie Brady LPN TYPE CODE TESTS RESULT OUT OF RANGE REFERENCE UNITS LAB [id number] SODIUM 140 136-145 mmol/L LAB 3524992 POTASSIUM 4.5 3.5-5.1 mmol/L Result Comment: Plasma potas sium values may be up to 0.5 mmol/L lower than serum values. LAB 9387271 CHLORIDE 103 98-107 mmol/L LAB 4821794 CARBON DIOXIDE 27 23-31 mmol/L LAB [id number] ANION GAP (JAMES, CALCULATED) 10 3-13 mmol/L LAB 9739026 UREA NITROGEN 21 9-23 mg/dL LAB 7869261 CREATININE 0.83 0.57-1.11 mg/dL LAB 9879519 GLUCOSE 89 82-115 mg/dL LAB 5165378 CALCIUM 9.5 8.8-10.0 mg/dL LAB 5985922 AST (SGOT) 40 High <34 U/L LAB 5823996 ALT 37 High <30 U/L LAB 5124380 ALKALINE PHOSPHATASE 86 40-150 U/L LAB 2748906 ALBUMIN 4.3 3.4-4.8 g/dL LAB 4544492 BILIRUBIN, TOTAL 0.4 <1.2 mg/dL LAB 1885131 TOTAL PROTEIN 8.0 6.4-8.3 g/dL LAB 4209066 GLOMERULAR FILTRATION RATE ML/MIN/1.73 SQ M.PREDICTED 80.3 >60.0 mL/min/1. 73m*2 Result Comment: Calculation based on the Chronic Kidney Disease Epidemiology Collaboration (CKD-EPI) equation refit without adjustment for race Performed By: #### OUP672, L AB18, LAB67, LAB68, LAB17, LAB69 #### C Consultant: HEATHER NORIEGA ([id number]) [facility]) [address] [place] [address] LIPID PANEL Collected: 03/10/2025 10:01 AM Status: F Source: [facility] Order Comment: These orders are set for an approximate date - they can be drawn up to 3 months prior to the Expected Date on this Req. Please send results to: KELL LAWLER MD - [address] [address] - [phone] And if not done at a [facility] Facility, please send to: [facility] - [address] [place] [address], [address] [place] [address] Patient Name: Jaime Oneill - 1965 Order Created by : Mattie Brady LPN TYPE CODE TESTS RESULT OUT OF RANGE REFERENCE UNITS LAB 2442081 TRIGLYCERIDE 75 <150 mg/dL LAB 9271463 CHOLESTEROL 227 High <200 mg/dL LAB 2980726 HDL CHOLESTEROL 75 >=60 mg/dL LAB 5245492 CHOL/HDL 3 Result Comment: Ref Range: < 3 Low Risk for CHD 3-6 Mod Risk for CHD > 6 High Risk for CHD LAB 6287 VERY LOW DENSITY LIPOPROTEIN, CALCULATED 15 <=30 mg/dL LAB 6288 NON-HDL CHOLESTEROL, CALCULATED 152 High <130 LAB 5198964 LOW DENSITY LIPOPROTEIN 137 High 0-<100 mg/dL Performed By: #### LEZ075, L AB18, LAB67, LAB68, LAB17, LAB69 #### C Consultant: HEATHER NORIEGA ([id number]) [facility] ([facility]) [address] [place] [address] FERRITIN Collected: 10:01 AM Status: F Source: [facility] TYPE CODE TESTS RESULT OUT OF RANGE REFERENCE UNITS LAB 4583091 FERRITIN 69 5-204 ng/mL Result Comment: ORDER COMMEN TS: These orders are set for an approximate date - they can be drawn up to 3 months prior to the Expected Date on this Req. Please send results to: KELL LAWLER MD - [address] [place] [address] [facility] [address] - [phone] And if not done at a [facility] Facility, please send to: [facility] - [address] [place] [address], [address], [address] Patient Name: Jaime Oneill - 1965 Order Created by : Mattie Brady LPN Ferritin levels below 10 ng/mL have been reported as indicative of iron deficiency anemia. Performed By: #### [id number], L AB18, LAB67, LAB68, LAB17, LAB69 #### C Consultant: HEATHER NORIEGA ([id number]) [address] VITAMIN B12 Collected: 5 10:01 AM Status: F Source: [facility] [employer] [facility] Order Comment: These orders are set for an approximate date - they can be drawn up to 3 months prior to the Expected Date on this Req. Please send results to: KELL LAWLER MD - [address] [place] [address] [facility] [address] - [phone] And if not done at a [facility] Facility, please send to: [facility] - [address] [place] [address], [address], [address] Patient Name: Jaime Oneill - 1965 Order Created by : Mattie Brady LPN TYPE CODE TESTS RESULT OUT OF RANGE REFERENCE UNITS LAB 4182296 VITAMIN B12 693 213-816 pg/mL Result Comment: TC Significant interference from hemolysis. Result integrity compromised. Interpret with caution. Performed By: #### BMP451, L AB18, LAB67, LAB68, LAB17, LAB69 #### C Consultant: HEATHER NORIEGA ([id number]) [facility] ([facility]) [address] [place] [address] FOLATE Collected: 5 10:01 AM Status: F Source: [facility] Order Comment: These orders are set for an approximate date - they can be drawn up to 3 months prior to the Expected Date on this Req. Please send results to: KELL LAWLER MD - [address] [place] [address] [facility] [address] - [phone] And if not done at a [facility], please send to: [facility] - [address] [place] [address], [address] Patient Name: Jaime Oneill - 1965 Order Created by : Mattie Brady LPN TYPE CODE TESTS RESULT OUT OF RANGE REFERENCE UNITS LAB 8079214 FOLATE RESULT 18.1 7.0-31.4 ng/mL Result Comment: TC Significant interference from hemolysis. Result integrity compromised. Interpret with caution. Performed By: #### PXS025, L AB18, LAB67, LAB68, LAB17, LAB69 #### C Consultant: HEATHER NORIEGA ([id number]) [facility] ([facility]) [address] [place] [address] HEMOGLOBIN A1C Collected: 03/10/2025 10:01 AM Status : F Source: [facility] TYPE CODE TESTS RESULT OUT OF RANGE REFERENCE UNITS LAB 9905430 HEMOGLOBIN A1C 5.4 <5.7 %HbA1C Result Comment: Normal less than 5.7% Prediabetes 5.7% to 6.4% Diabetes 6.5% or higher --HgbA1C levels may not be accurate in patients who have renal disease, received recent blood transfusions, are anemic, or who have dyshemoglobinemia. LAB 4416072 ESTIMATED AVERAGE GLUCOSE 108 mg/dL Result Comment: ORDER COMMEN TS: These orders are set for an approximate date - they can be drawn up to 3 months prior to the Expected Date on this Req. Please send results to: KELL LAWLER MD - [address] [facility] [address] [facility] [address] - [phone] And if not done at a [facility] Facility, please send to: [facility] - [address] [place] [address], [address] Patient Name: Jaime Oneill - 1965 Order Created by : Mattie Brady LPN HbA1c values of 5.7-6.4 percent indicate an increased risk for developing diabetes mellitus. HbA1c values greater than or equal to 6.5 percent are diagnostic of diabetes mellitus. For diagnosis of diabetes in individuals without unequivocal hyperglycemia, results should be confirmed by repeat testing. Performed By: #### LAB90 ### # C Consultant: HEATHER NORIEGA ([id number]) [facility] ([facility]) [address] [place] [address] 29 Observed: 03/10/2025 9:28 AM Status: COMPLETED Source: [facility] Addended by: MARCELINA FLORES on: 03/10/2025 09:28 AM Modules accepted: Orders 29 Observed: 03/10/2025 9:27 AM Status: COMPLETED Source: [facility] Addended by: MARCELINA FLORES on: 03/10/2025 09:27 AM Modules accepted: Orders OFFICE VISIT Observed: 03/10/2025 9:00 AM Status: COMPLETED Source: [facility] [id number] Jaime Oneill [birth year] F Date Provider Department Center 03/10/2025 8463-YMWYCDB-MOSRLJULIANA WRAY*ACH BCC SURG None Family History Problem Relation Age of Onset Obesity Mother Diabetes Mother High Blood Pressure Mother Obesity Father Diabetes Father High Blood Pressure Father Heart disease Father Stroke Father Heart disease Sister Obesity Sister Heart disease Brother High Blood Pressure Brother Family Status - Relation Status Age at Mother Alive Father Sister Alive Brother Alive Level of Service:39616 [place] OFFICE/OUTPATIENT ESTABLISHED MDM 10 MIN Reason for Visit and Comments: Weight Management [645] - D/E 2 OF 3 PROGRESS NOTE Observed: 03/10/2025 9:00 AM Status: COMPLETED Source: [facility] BARIATRIC CARE CENTER PRE-OP MEDICAL MANAGEMENT PROGRESS [...] Morbid obesity with BMI of 40.0-44.9, adult ([facility]) Plan: Diagnosis Managing: GERD: stable. 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 and now doing on [...] Observed: 03/02/2025 11:00 AM Status: COMPLETED Source: [facility] [id number] OneillJaime F Date Provider Department Center 03/02/2025 09832-DTLGQBIBIANA BREEN [facility] None Family History Problem Relation Age of Onset Obesity Mother Diabetes Mother High Blood Pressure Mother Obesity Father Diabetes Father High Blood Pressure Father Heart disease Father Stroke Father Heart disease Sister Obesity Sister Heart disease Brother High Blood Pressure Brother Family Status - Relation Status Age at Mother Alive Father Sister Alive Brother Alive Level of Service:41002 [place] PSYCL/NRPSYCL TST ELEC PLATFORM AUTO RESULT Reason for Visit and Comments: Psychiatric Evaluation [686673] - testing PROGRESS NOTE Observed: 03/02/2025 11:00 AM Status: COMPLETED Source: [facility] PSYCHOLOGICAL TESTING VIA COMPUTER [...] clinical interview. Bibiana Breen, PhD Clinical Psychologist [facility] OFFICE VISIT Observed: 03/02/2025 9:30 AM Status: COMPLETED Source: [facility] [id number] Jaime Oneill [birth year] F Date Provider Department Center 03/02/2025 83372-TDHWOBIBIANA BREEN [facility] None Family History Problem Relation Age of Onset Obesity Mother Diabetes Mother High Blood Pressure Mother Obesity Father Diabetes Father High Blood Pressure Father Heart disease Father Stroke Father Heart disease Sister Obesity Sister Heart disease Brother High Blood Pressure Brother Family Status - Relation Status Age at Mother Alive Father Sister Alive Brother Alive Level of Service:46722 [place] PSYCHIATRIC DIAGNOSTIC EVALUATION Reason for Visit and Comments: Psychiatric Evaluation [787245] PROGRESS NOTE Observed: 02/25/2025 9:00 AM Status: COMPLETED Source: [facility] [place] BARIATRIC NUTRITION ASSESSMENT / DIET & EXERCISE [...] Amount regained Most successful Lifestyle Changes Now [facility] Bariatric Clinic CURRENT MEAL PLANNING Self [...] they must have someone in their home 24 for the first week following surgery, or [...] Observed: 02/25/2025 7:23 AM Status: COMPLETED Source: [facility] Patient: Jaime Oneill Procedure Information Date/Time: 02/25/25 1345 Procedure: ESOPHAGOGASTRODUODENOSCOPY, WITH BIOPSY - 20 MINS Location: [facility]O SEC 3 / ARCH Gastroenterology [...] 02/22/2025 3:16 PM Status: COMP LETED Source: [employer] Corrected. 36 Observed: 02/22/2025 3:02 PM Status: COMPLETED Source: [employer] [facility] This is a 3 visit patient. N ext visit marked 2 of 6- I do not know how to correct with new system. Thanks! 37 Observed: 02/19/2025 10:40 AM Status: COMPLETED Source: [employer] [facility] YOUR APPOINTMENT TODAY WAS [place] [facility], COPD CLINIC, PULMONARY AND SLEEP MEDICINE OFFICE. PLEASE CALL OUR OFFICE AT [phone] IF YOU HAVE NOT RECEIVED YOUR TEST [...] to make improvements. COVID-19 VACCINATION INFORMATION: . [phone] HEALTH.ORG/CORONAVIRUS/VACCINE [facility] Central Scheduling [phone] [facility] Sleep Scheduling [phone] PROGRESS NOTE Observed: 02/19/2025 10:40 AM Status: COMPLETED Source: [facility] Visit type: New patient History of Present [...] or CP. Reports that she has a personal carer which she sees x2 per week, plus [...] pain. Known history of sleep apnea: no [place] Sleepiness Scale: 3 Sleep apnea symptoms: Snoring [...] Observed: 02/19/2025 10:40 AM Status: COMPLETED Source: [facility] [id number] NinoJaime F Date Provider Department Center 02/19/2025 38621-EPGBYZDNGXHICRICKET RINCON *[facility] PUL None Family History Problem Relation Age of Onset Obesity Mother Diabetes Mother High Blood Pressure Mother Obesity Father Diabetes Father High Blood Pressure Father Heart disease Father Stroke Father Heart disease Sister Obesity Sister Heart disease Brother High Blood Pressure Brother Family Status - Relation Status Age at Mother Alive Father Sister Alive Brother Alive Level of Service:00497 [place] OFFICE/OUTPATIENT NEW LOW MDM 30 MINUTES Reason for Visit and Comments: New Patient [542] 36 Observed: 02/09/2025 2:44 PM Status: COMPLETED Source: [facility] There is only 1 note from Se price that is still good but now too large of a gap to even use that. She should do the 3 here. 36 Observed: 02/05/2025 7:52 AM Status: COMPLETED Source: [facility] Medical weight loss visits n oted in care everywhere for [facility]. Will review to see if these apply for program. 29 Observed: 02/03/2025 11:56 AM Status: COMPLETED Source: [facility] Addended by: MATTIE BRADY n: 02/03/2025 11:56 AM Modules accepted: Orders 36 Observed: 02/03/2025 11:27 AM Status: COMPLETED Source: [facility] ----- Message from KENTON Faye CNP sent at 02/03/2025 11:11 AM EDT ----- Please obtain bariatric records from in josephine - [facility] [address] [facility] [address], [place] [address] ? [address] fransisca Martinez May PROGRESS NOTE Observed: 02/03/2025 10:40 AM Status: COMPLETED Source: [facility] See TE records requests - [facility] records for further documentation PROGRESS NOTE Observed: 02/03/2025 10:40 AM Status: COMPLETED Source: [facility] BARIATRIC CARE CENTER SURGICAL WEIGHT LOSS MANAGEMENT PROGRAM SUPERVISED DIET AND EXERCISE SURGICAL PREPARATORY REGIMEN PROGRESS NOTE INITIAL EVALUATION Patient: Jaime Oneill Service Date: 02/03/2025 Date of : 1965 Patient History/Assessment Summary: The patient is a pleasant 59 y.o. year old female, who stands Height: 5' 5 (165.1 cm) ([facility]) tall with a weight of Weight: 249 [...] (113 kg) Initial BMI: Initial BMI: 41.43 [place] Body Weight: [place] Body Weight: 125 lb (56.7 kg) Excess [...] DIET HISTORY FORM with patient (located in [employer]) Her diet contains adequate amounts of protein, [...] mouth daily. CHOLECALCIFEROL (VITAMIN D-3) 250 MCG (44584 UT) TABLET Take 10,000 Units by mouth [...] Observed: 02/03/2025 10:40 AM Status: COMPLETED Source: [facility] [employer] [facility] [id number] Jaime Oneill [birth year] F Date Provider Department Center 02/03/2025 1408-HPGFRIJ-DAXBBJULIANA BHATIA*ACH BCC SURG None Family History Problem Relation Age of Onset Obesity Mother Diabetes Mother High Blood Pressure Mother Obesity Father Diabetes Father High Blood Pressure Father Heart disease Father Stroke Father Heart disease Sister Obesity Sister Heart disease Brother High Blood Pressure Brother Family Status - Relation Status Age at Mother Alive Father Sister Alive Brother Alive Level of Service:59377 [place] OFFICE/OUTPATIENT ESTABLISHED MOD MDM 30 MIN Reason for Visit and Comments: Weight Management [645] - Initial D/E Observed: 01/28/2025 1:28 PM Status: COMPLETED Source: [facility] [employer] [facility] Orders / pre op check list p laced in folder for D/E 02/03/2025 W/ MGS. 29 Observed: 01/28/2025 11:34 AM Status: COMPLETED Source: [facility] [employer] [facility] Addended by: TRISH BHATIA on: 01/28/2025 11:34 AM Modules accepted: Orders 36 Observed: 01/28/2025 11:34 AM Status: COMPLETED Source: [facility] [employer] [facility] Orders signed. Called and left voicemail for patient to discuss decision of procedure she would like to have. 29 Observed: 01/28/2025 9:37 AM Status: COMPLETED Source: [facility] Addended by: MATTIE BRADY n: 01/28/2025 09:37 AM Modules accepted: Orders 36 Observed: 01/28/2025 9:33 AM Status: COMPLETED Source: [employer] [facility] EGD order sent to [address], labs pended, Pre op check list scanned to media. PROGRESS NOTE Observed: 01/28/2025 9:32 AM Status: COMPLETED Source: [employer] Patient is scheduled for EGD with biopsy- CPT 86093 on 03/25/25 at 145PM Contact attempts- 3 must be made in 2 different forms. Discussed with patient via phone and sent [employer] message after confirming pt active on [employer] Important info discussed as applicable: Is patient [...] Observed: 01/28/2025 9:32 AM Status: COMPLETED Source: [employer] Auth required: Yes Insurance: [employer] referred to [facility] ID number: [id number] Authorization number: [id number] Valid dates: 02/25/25 to 05/27/2025 Notes: Tracking # [id number] PROGRESS NOTE Observed: 01/28/2025 9:32 AM Status: COMPLETED Source: [employer] [facility] ADDED TO OUTLOOK RESS NOTE Observed: 01/28/2025 9:32 AM Status: COMPLETED Source: [employer] Attempt to contact patient, no answer, left voice message regarding scheduling an EGD procedure RESS NOTE Observed: 01/28/2025 9:32 AM Status: COMPLETED Source: [employer] Print RESS NOTE Observed: 01/28/2025 9:32 AM Status: COMPLETED Source: [employer] [facility] Patient is scheduled for EGD with biopsy- CPT 83559 on 02/25/2025 at 1:45 95 ARCH Contact attempts- 3 must be made in 2 different forms. Discussed with patient via phone and sent [employer]eto message after confirming pt active on [employer] Important info discussed as applicable: Is patient [...] Observed: 01/28/2025 9:32 AM Status: COMPLETED Source: [facility] ENDOSCOPY ORDERS To be scheduled with: Dr. Moore Patient is: Pre-op/Pre-Bariatric Surgery CPT code: EGD with biopsy- CPT 68251 Diagnosis: GERD- K21.9 If pre-op, Diet & [...] Observed: 01/28/2025 9:32 AM Status: COMPLETED Source: [facility] Auth required: Yes Insurance: [employer] referred to [facility] ID number: [id number] Authorization number: [id number] Valid dates: 02/25/25 to 05/27/2025 Notes: Tracking # [id number] Observed: 01/28/2025 9:31 AM Status: COMPLETED Source: [facility] PLAN Encounter Diagnoses Name Primary? Morbid obesity, [...] Observed: 01/25/2025 2:25 PM Status: COMPLETED Source: [facility] Initial New [facility] surgical pat ient Navigation & Financial Counseling [...] INSURANCE: Payor: [employer] MEDICARE ADVANTAGE / Plan: [employer] MEDICARE / Product Type: Medicare HMO / [...] 1) Scheduled at new pt surgeon visit: Airconditioning Drafting Officer (RD) for a Nutrition Assessment (BNA) and [...] Observed: 01/25/2025 10:20 AM Status: COMPLETED Source: [facility] BARIATRIC AND METABOLIC SURG [facility] INITIAL EVALUATION - HISTORY AND PHYSICAL [...] mouth daily. CHOLECALCIFEROL (VITAMIN D-3) 250 MCG (00069 UT) TABLET Take 10,000 Units by mouth [...] was performed by myself. Jordon Moore FACS [facility] Director - Minimally Invasive Surgery ---[facility]--- Patient Care Team: Kell Lawler MD as PCP - General (Geriatric Medicine) OFFICE VISIT Observed: 01/25/2025 10:20 AM Status: COMPLETED Source: [facility] [id number] Jaime Oneill [birth year] F Date Provider Department Center 01/25/2025 33854-CISAKVXJORDON MOORE [facility] SURG None Family History Problem Relation Age of Onset Obesity Mother Diabetes Mother High Blood Pressure Mother Obesity Father Diabetes Father High Blood Pressure Father Heart disease Father Stroke Father Heart disease Sister Obesity Sister Heart disease Brother High Blood Pressure Brother Family Status - Relation Status Age at Mother Alive Father Sister Alive Brother Alive Level of Service:29574 [place] OFFICE/OUTPATIENT NEW MODERATE MDM 45 MINUTES Reason for Visit and Comments: Surgical Consult [878] - NEW ALLERGIES No Allergies Records Found ENCOUNTERS ADMIT/DISCHARGE ACCOUNT NUMBER ADMITTING ENCOUNTER CLASS LOC ATION SOURCE 08/02/2025/ 5 [id number] Ambulatory Buildin [id number] [facility] 07/05/2025/ 5 [id number] Ambulatory Buildin [id number] [facility] 06/30/2025/ 5 [id number] JORDON MOORE Inpatient Encounter Buildin [id number]: [facility] H-6101Bed: H-6101 A [facility] 06/22/2025/ 5 [id number] Ambulatory Buildin [id number] [facility] 06/07/2025/ 5 [id number] Ambulatory Buildin [id number] [facility] 04/08/2025/ 5 [id number] Ambulatory Buildin [id number] [facility] 04/08/2025/ 5 [id number] Ambulatory Buildin [id number] [facility] 03/25/2025/ 5 [id number] JORDON MOORE Ambulatory Buildin [id number]: [id number] : [id number] [facility] 03/17/2025/ 5 [id number] Ambulatory Buildin [id number] [facility] 03/10/2025/ 5 [id number] Ambulatory Buildin [id number] [facility] 03/10/2025/ 5 [id number] Ambulatory Buildin [id number] [facility] 03/02/2025/ 5 [id number] Ambulatory Buildin [id number] [facility] 03/02/2025/ 5 [id number] Ambulatory Buildin [id number] [facility] 02/25/2025/ 5 [id number] Ambulatory Buildin [id number] [facility] 02/19/2025/ 5 [id number] Ambulatory Buildin [id number] [facility] 02/03/2025/ 5 [id number] Ambulatory Buildin [id number] [facility] 01/25/2025/ 5 [id number] Ambulatory Buildin [id number] [facility] PAYERS ENCOUNTER GUARANTOR PAYER SUBSCRIBER SOURCE 08/02/2025 Primary Insuranc e:HUMAN MEDICARE ADVANTAGEPolicy Number: [id number] Date:1367-52-87Xqru Name:Medicare HMO JAIME MAROB: [id number] [address], [place] [address] [facility] 07/05/2025 Primary Insuranc e:HUMAN MEDICARE ADVANTAGEPolicy Number: [id number] Date:4822-52-09Whiu Name:Medicare HMDelfin MAROB: [id number] [address] [address] [facility] 06/30/2025 Primary Insuranc e:HUMAN MEDICARE ADVANTAGEPolicy Number: [id number] Date:9833-84-46Tmqp Name:Medicare HMDelfin MAROB: [id number] [address] [address] [facility] 06/22/2025 Primary Insuranc e:HUMANA MEDICARE ADVANTAGEPolicy Number: [id number] Date:5638-50-71Xcrn Name:Medicare O JAIME MAROB: [id number] [address], [place] [address] [facility] 06/07/2025 Primary Insuranc e:HUMANA MEDICARE ADVANTAGEPolicy Number: [id number] Date:8113-71-69Rjuj Name:Medicare O JAIME MAROB: [id number] [address], [place] [address] [facility] 04/08/2025 Primary Insuranc e:HUMANA MEDICARE ADVANTAGEPolicy Number: [id number] Date:8810-97-71Kytr Name:Medicare HMO JAIME MAROB: [id number] [address], [place] [address] [facility] 04/08/2025 Primary Insuranc e:HUMANA MEDICARE ADVANTAGEPolicy Number: [id number] Date:7862-88-86Pprh Name:Medicare HMO JAIME MAROB: [id number] [address], [place] [address] [facility] 03/25/2025 Primary Insuranc e:HUMANA MEDICARE ADVANTAGEPolicy Number: [id number] Date:9926-13-06Bfrf Name:Medicare HMO JAIME MAROB: [id number] [address], [place] [address] [facility] 03/17/2025 Primary Insuranc e:HUMANA MEDICARE ADVANTAGEPolicy Number: [id number] Date:3916-56-48Exqy Name:Medicare HMO JAIME MAROB: [id number] [address], [place] [address] [facility] 03/10/2025 Primary Insuranc e:HUMANA MEDICARE ADVANTAGEPolicy Number: [id number] Date:2048-79-15Axlw Name:Medicare HMO JAIME MAROB: [id number] [address], [place] [address] [facility] 03/10/2025 Primary Insuranc e:HUMANA MEDICARE ADVANTAGEPolicy Number: [id number] Date:1010-19-92Tntl Name:Medicare O JAIME MAROB: [id number] [address], [place] [address] [facility] 03/02/2025 Primary Insuranc e:HUMANA MEDICARE ADVANTAGEPolicy Number: [id number] Date:0388-33-25Vema Name:Medicare O JAIME MAROB: [id number] [address], [place] [address] [facility] 03/02/2025 Primary Insuranc e:HUMANA MEDICARE ADVANTAGEPolicy Number: [id number] Date:6436-86-12Tcus Name:Medicare O JAIME MAROB: [id number] [address], [place] [address] [facility] 02/19/2025 Primary Insuranc e:HUMANA MEDICARE ADVANTAGEPolicy Number: [id number] Date:8827-15-64Mmet Name:Medicare O JAIME MAROB: [id number] [address], [place] [address] [facility] 02/03/2025 Primary Insuranc e:HUMANA MEDICARE ADVANTAGEPolicy Number: [id number] Date:9827-12-29Zfwh Name:Medicare O JAIME MAROB: [id number] [address], [place] [address] [facility] 01/25/2025 Primary Insuranc e:HUMANA MEDICARE ADVANTAGEPolicy Number: [id number] Date:3521-20-20Jcph Name:Medicare O JAIME MAROB: [id number] [address], [place] [address] [facility]
[2025-08-10 12:08] LABS: AST(SGOT) 49 U/L (<=31); Alanine Aminotransfer ALT/SGPT 52 U/L (<=34); Albumin, Serum 4.5 g/dL (3.4-4.8); Alkaline Phosphatase 96 U/L (35-104); Anion Gap 11 (5-15); BUN 9 mg/dL (4-19); BUN/Creat Ratio 12.6 RATIO (10-20); Calcium,Total 9.4 mg/dL (7.6-11.0); Carbon Dioxide 26.9 mmol/L (21.0-32.0); Chloride 105 mmol/L (98-108); Globulin 2.9 g/dL (2.2-4.2); Glucose 92 mg/dL (70-99); Potassium 4.0 mmol/L (3.3-5.1)
== END 2025-08-10 23:59 | disposition home or self-care (01) ==
LOC: POLAB3 11:10
PROVIDERS: PCP Family Medicine Geriatric Medicine; Visit Provider Family Medicine Geriatric Medicine
DX: R53.83 Other fatigue (principal)
CPT/HCPCS: 36415; 80053

== ENCOUNTER → 2025-08-17 | Outpatient (CLI) | payer MEDICARE, SELFPAY ==
--- NOTE | 2025-08-17 12:18 | US_ITS ---
PROCEDURE: US BREAST BIOPSY 1ST LESION 08/17/2025 REASON FOR EXAM: F, Age 59 y/o , ABNORMAL ULTRASOUND RIGHT BREAST Ultrasound-guided right breast biopsy. TECHNIQUE: Procedure Code: [id number] Modality: US Procedure: US BREAST BIOPSY 1ST LESION COMPARISON: Prior exam(s) dating back to July 27, 2025 and prior mammogram dated July 23, 2025.. FINDINGS: ULTRASOUND: Ultrasound was targeted to the right retroareolar region of the right breast. Under direct sonographic guidance, the surgeon performed multiple core biopsies of the hypoechoic nodule at the 4 o'clock position of the breast at 1 cm from the nipple. US/US Breast Biopsy 1st Lesion IMPRESSION: OVERALL FINAL ASSESSMENT: BIRADS 11 WAITING PATHOLOGY RECOMMENDATION: Routine annual follow-up in 1 Year Reading Location: [id number]
--- NOTE | 2025-08-17 13:00 | BRBX_PTH ---
PATIENT: JAIME JENKINS LOC: OPUS U#:[id number] AGE/SX: 59/F ROOM: RE08/17/[address]: Dr. Agus Islas MD : [id number] BED: DIS: 08/17/2025 SPEC #: [id number] RECD: 08/17/25 13:26 STATUS: DAI REQ #: [id number] AV: 08/17/25 13:[address]: Agus Islas DEPT: SURGICAL PATHOLOGY RECD BY: Chris Mejia ENTERED: 08/17/25 14:18 SP TYPE: BREAST BX OTHR DR: Dr. Edilberto Loza MD Tissues: A - Right breast, NOS Procedures: Immunohistochemical Stains Surgery Specimen Level IV IHC Stain ADDITIONAL HEADER OPERATION: Breast biopsy PRE-OP DIAGNOSIS: Right breast - retro 4o'clock, 1cm from nipple TISSUE SUBMITTED: Right breast - retro 4o'clock, 1cm from nipple MICROSCOPIC DIAGNOSIS A. 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 The slides are reviewed with Dr. Damico in consultation. MICROSCOPIC DESCRIPTION Slides are reviewed. All matched controls reacted appropriately. These tests were developed and their performance characteristics determined by [facility]. They may not have been cleared or approved by the U.S. Food and Drug Administration. The FDA has determined that such clearance or approval is not necessary. The above immunohistochemical markers are viewed by the Pathologist. GROSS DESCRIPTION A. Received in formalin labeled with the patient's name and date of . Designated as " right breast" is a 1.7 x 1.0 x 0.3 cm aggregate of pink-yellow fragmented tissue cores. Entirely submitted in 1 cassette. Cold ischemic time: <1-minuteFormalin fixation time: 30 hours, 30 minutes CO 08/17/2025 CPT:07276,69505,27641
--- NOTE | 2025-08-17 13:05 | BI_ITS ---
EXAM: DIAG MAMM W/CAD, UNILAT 08/17/2025 CLINICAL HISTORY: F, Age 59 y/o , POST U/S BX CLIP PLACEMENT TECHNIQUE: Procedure Code: [id number] Modality: MG Procedure: DIAG MAMM W/CAD, UNILAT. COMPARISON: Prior exam(s) dated prior mammogram dated July 26, 2025.. FINDINGS: TISSUE DENSITY: There are scattered areas of fibroglandular density. Bilateral Breast Mammographic Findings: A tissue clip marker is seen within the 7 mm nodule in the inferior medial retroareolar region of the breast. BI/DIAG MAMM W/CAD, UNILAT IMPRESSION: Tissue clip marker is seen within the 7 mm nodule in the inferior medial retroa reolar region of the breast. OVERALL FINAL ASSESSMENT BI-RADS 3: PROBABLY BENIGN. RECOMMENDATION: Routine annual follow-up in 1 Year Additional Recommendation none A letter with findings and recommendations will be mailed to the patient. Reading Location: [facility]
--- NOTE | 2025-08-17 13:15 | OP.PCM_ITS ---
Procedures Integumentary 16xxx-193xx: 12041 Bx breast 1st lesion us imag Operative Report (Standard) Operative Information Date of Procedure: 08/17/25 Pre-Operative Diagnosis: Abnormal right breast mammogram and ultrasound Post-Operative Diagnosis: Same Surgery/Procedure Performed: Ultrasound-guided right breast mammotome biopsy x 1 site line assembler: No Type of Anesthesia: Local Procedure Start Time: 12:45 Procedure Stop Time: 13:05 Select all DRAINS/GRAFTS/IMPLANTS that apply: Implanted device Implanted device details: Marking clip deployed at the completion of the procedure Estimated Blood Loss: Minimal Specimen collected: Yes Description of specimen(s) removed: Right breast tissue Description of surgery: The patient is a 59-year-old female who was recently seen to the office with an abnormal right breast mammogram and ultrasound. A 1 cm or less hypoechoic lesion was identified at the 4 o'clock position of the right breast about 1 cm from the nipple. This was felt to most likely represent a fibroadenoma however biopsy was recommended by radiology. I recommended mammotome biopsy in the radiology suite and as this was a very small lesion. We discussed the details of the planned procedure and she wished to proceed. After obtaining informed consent, she was placed supine on the procedure room cart. The radiographic technologist was able to identify the lesion again at the 4 o'teressa ck position 1 cm from the nipple. Once this was clearly identified, the skin of the right breast was prepped and draped in the usual sterile manner. Local anesthetic was infiltrated in the vicinity of the lesion. A #11 blade was then used to make a small skin incision. Next the mammotome probe was inserted under ultrasound guidance and was positioned just deep to the lesion. Once in satisfactory position, about 4-5 passes were made into the lesion under ultrasound guidance. This seemed to appropriately biopsy the lesion in question. At the completion of the biopsy, a marking clip was deployed under ultrasound guidance as well. Patient tolerated the procedure well. Steri- Strips and OpSite were applied as dressing. She will undergo postprocedure mammogram. I will contact her with results once they become available. Surgical Findings: See procedure note Complications Complications: No Admit VTE Documentation VTE Present on Admission: No VTE Mechan Device Prophylaxis: None VTE Pharm Prophylaxis ordered?: No Reason prophylaxis not ordered: Treatment Not Indicated
== END | disposition home or self-care (01) ==
PROVIDERS: PCP Family Medicine Geriatric Medicine; Referring Provider Surgery; Visit Provider Surgery
DX: R92.8 Other abnormal and inconclusive findings on diagnostic imaging of breast (principal); N63.10 Unspecified lump in the right breast, unspecified quadrant
CPT/HCPCS: 19083; 77065; 88305; 88341; 88342

== ENCOUNTER → 2025-09-02 | Outpatient (CLI) | payer MEDICARE, SELFPAY ==
[2025-09-02 11:20] LABS: AST(SGOT) 55 U/L (<=31); Alanine Aminotransfer ALT/SGPT 52 U/L (<=34); Albumin, Serum 4.5 g/dL (3.4-4.8); Alkaline Phosphatase 89 U/L (35-104); Anion Gap 9 (5-15); BUN 15 mg/dL (4-19); BUN/Creat Ratio 25.2 RATIO (10-20); Calcium,Total 9.6 mg/dL (7.6-11.0); Carbon Dioxide 28.0 mmol/L (21.0-32.0); Chloride 105 mmol/L (98-108); Globulin 3.1 g/dL (2.2-4.2); Glucose 97 mg/dL (70-99); Potassium 4.4 mmol/L (3.3-5.1)
== END | disposition home or self-care (01) ==
LOC: POLAB3 10:40
PROVIDERS: PCP Family Medicine Geriatric Medicine; Visit Provider Family Medicine Geriatric Medicine
DX: R53.83 Other fatigue (principal)
CPT/HCPCS: 36415; 80053

== ENCOUNTER 2025-10-01 06:18 | Day surgery (SDC) | payer MEDICARE, SELFPAY ==
[2025-10-01] VITALS (7 sets, daily range): BP systolic 119–128; BP diastolic 63–102; PULSE 70–79; RESP 16–20; TEMP 36.2–36.4; O2SAT 98–100; BMI 34.9
--- OUTSIDE RECORDS SUMMARY | 2025-10-01 06:23 | XMS RPT_ITS | CCD ---
Author Organization [facility] Care Team Providers Care Physical Security Specialist Name Role Phone INDU BUSBY Unavailable Unavailable PROVIDER, UNKNOWN Unavailable Unavailable No, PCP Unavailable Unavailable REFERRING, PHY WO ID Primary Care Physician Unav ailable [...] Dago ANN, Dr. Edilberto Giron Referring Provider [phone] Dago ANN, Dr. Edilberto Giron Primary Care Provider Dago ANN, Dr. Edilberto Giron Attending Provider Dago ANN, Dr. Edilberto Giron Referring Provider TRISH BHATIA Attending Provider TRISH BHATIA Referring Provider BIBIANA RAMIREZ Attending Provider Rain BENITO, Gaye Rowe Unavailable Unavailab hemal Loza MD, Dr. Edilberto Giron Primary Care Provider Dago ANN, Dr. Edilberto Giron Referring Provider BIBIANA RAMIREZ Attending Provider UnavailBIBIANA Rush Referring Provider UnavailDr. Edilberto Saxena MD, Chi Attending Provider [phone] POZSGAY, JORDON Attending Unavailable POZSGAY, JORDON Admitting Unavailable DAGO, EDILBERTO-CHI Primary Care Unavailable DAGO, EDILBERTO-CHI Primary Care Unavailable POZSGAY, JORDON Attending Unavailable POZSGAY, JORDON Admitting Unavailable TRISH BHATIA Attending Unavail able DAGO, EDILBERTO-CHI Primary Care Unavailable DAGO, EDILBERTO-CHI Referring Unavailable DAGO, EDILBERTO-CHI Primary Care Unavailable POZSGAY, JORDON Attending Unavailable DAGO, EDILBERTO-CHI Primary Care Unavailable POZSGAY, JORDON Attending Unavailable DAGO, EDILBERTO-CHI Referring Unavailable POZSGAY, JORDON Attending Unavailable DAGO, EDILBERTO-CHI Primary Care Unavailable DAGO, EDILBERTO-CHI Referring Unavailable DAGO, EDILBERTO-CHI Primary Care Unavailable TRISH BHATIA Attending Unavail able EMBIBIANA MON Attending Unavailable DAGO, EDILBERTO-CHI Primary Care Unavailable TRISH BHATIA Attending Unavail able DAGO, EDILBERTO-CHI Referring Unavailable DAGO, EDILBERTO-CHI Primary Care Unavailable TRISH BHATIA Attending Unavail able TRISH BHATIA Referring Unavail able DAGO, EDILBERTO-CHI Primary Care Unavailable DAGO, EDILBERTO-CHI Referring Unavailable DAGO, EDILBERTO-CHI Primary Care Unavailable POZSGAY, JORDON Attending Unavailable DAGO, EDILBERTO-CHI Primary Care Unavailable POZSGAY, JORDON Attending Unavailable DILANSTENCRICKET LOZANO Attending Unavailable DAGO, EDILBERTO-CHI Primary Care Unavailable TRISH BHATIA Referring Unavail able DAGO, EDILBERTO-CHI Primary Care Unavailable TRISH BHATIA Referring Unavail able ALO ROEA Attending Unavailable POZSGAY, JORDON Attending Unavailable DAGO, EDILBERTO-CHI Primary Care Unavailable BIBIANA ESPINOZA Attending Unavailable DAGO, EDILBERTO-CHI Primary Care Unavailable BIBIANA ESPINOZA Attending Unavailable DAGO, EDILBERTO-CHI Primary Care Unavailable Dago Dr. Edilberto ANN Chi Primary Care Physician TRISH BHATIA Attending Physician BIBIANA RAMIREZ Attending Physician BIBIANA RAMIREZ Attending Physician Unavail able Dago ANN, Dr. Edilberto Giron Attending Physician Bravo Luz MD Emergency Department Physician Janel ANN, Dr. Agus Rowe Attending Physician [phone] Dago ANN, Dr. Edilberto Giron Primary Care Physician Dago ANN, Dr. Edilberto Giron Referring Provider Natty ANN, Bravo Attending Physician Janel ANN, Dr. Agus Rowe Referring Provider Janel ANN, Dr. Agus Rowe Nurse Practitioner Agus Islas Attending Unavailable Dago, Edilberto Chi Primary Care Unavailable WanAgus colbert Attending Unavailable Dago, Edilberto Chi Primary Care Unavailable Dago, Edilberto Chi Referring Unavailable WanAgus colbert Attending Unavailable Dago, Edilberto Chi Primary Care Unavailable Dago, Edilberto Chi Referring Unavailable Dago, Edilberto Chi Attending Unavailable Dago, Edilberto Chi Primary Care Unavailable Bravo Luz Attending Unavailable Dago, Edilberto Chi Primary Care Unavailable Dago, Edilberto Chi Attending Unavailable Dago, Edilberto Chi Referring Unavailable Dago, Edilberto Chi Primary Care Unavailable Dago, Edilberto Chi Primary Care Unavailable Dago, Edilberto Chi Attending Unavailable Dago, Edilberto Chi Attending Unavailable Dago, Edilberto Chi Primary Care Unavailable WanAgus colbert Referring Unavailable WanekAgus Attending Unavailable Dago, Edilberto Chi Primary Care Unavailable Dago, Edilberto Chi Primary Care Unavailable Dago, Edilberto Chi Referring Unavailable Dago, Edilberto Chi Attending Unavailable Dago, Edilberto Chi Primary Care Unavailable DONIS, BRAYAN Referring Unavailable DONISREYNAEN Attending Unavailable Dago, Edilberto Chi Primary Care Unavailable DONIS, BRAYAN Referring Unavailable DONIS, BRAYAN Attending Unavailable Daog, Edilberto Chi Primary Care Unavailable Dago, Edilberto Chi Referring Unavailable DONIS, BRAYAN Attending Unavailable Dago, Edilberto Chi Primary Care Unavailable Dago, Edilberto Chi Referring Unavailable Dago, Edilberto Chi Attending Unavailable Dago, Edilberto Chi Primary Care Unavailable Dago, Edilberto Chi Referring Unavailable Dago, Edilberto Chi Attending Unavailable Dago, Edilberto Chi Primary Care Unavailable Dago, Edilberto Chi Referring Unavailable Dago, Edilberto Chi Attending Unavailable Dago, Edilberto Chi Referring Unavailable Dago, Edilberto Chi Primary Care Unavailable Edilberto Loza Chi Attending Unavailable Agus Islas Consulting Unavailable Agus Islas Referring Unavailable Agus Islas Attending Unavailable Edilberto Loza Chi Primary Care Unavailable Medications Current Medications Medication Drug Class(es) Dates [...] biotin 5 mg oral capsule (20 sources) Start: 08-07-2025 take 1 capsule by mouth once d aily Start: 08-07-2025 take 1 capsule by mouth once d aily take 1 capsule by mouth once sherice ly biotin 5000 MCG capsule Take 1 capsule by mouth daily. PATIENT STATES LAST TAKEN ON 06/19/25 Active take 3 capsules by m out once daily biotin 5000 MCG capsule Take 3 capsules by mouth daily. Active bisacodyl 10 mg rectal suppo sitory (5 sources) Stimulant Laxative Start: 08-07-2025 Start: 08-07-2025 Black Cohosh Extract (14 sources) BLACK COHOSH PO Take by mouth daily. PATIENT STATES LAST TAKEN ON 06/19/25 Active BLACK COHOSH PO Take by mouth. Active Black Cohosh (5 sources) Start: 08-07-2025 take 1 capsule by mo uth once daily Calcium Carbonate (20 sources) take 1 tablet [...] Active calcium citrate 1040 mg oral tablet (10 sources) Start: 08-07-2025 take 2 tablets by mo uth three times daily Start: 08-07-2025 take 2 tablets by [facility] three times daily Start: 07-05-2025 take 2 tablets by mo [facility] three times daily, then take 2 tablets [...] oral capsule (20 sources) Vitamin D Start: 08-07-20 take 1 capsule by mouth once daily Start: 08-07-2025 take 1 capsule by [facility] once daily Start: 07-05-2025 take 2 capsules by [facility] once daily Cholecalciferol (Vitamin D) 50 MCG [...] once daily cholecalciferol (Vitamin D-3) 250 MCG (62555 UT) tablet Take 10,000 Units by mouth daily. 04/08/2025 Discontinued (Therapy completed) take 1 capsule by [facility] once daily cholecalciferol (Vitamin D-3) 25 MCG (1000 UT) capsule Take 1 capsule (25 mcg) by mouth once daily. Active estrogens, conjugated (mcfp) 0.3 mg oral tablet (3 sources) Estrogen take 1 tablet by mouth once daily estrogens, conjugated, (Premarin) 0.3 mg tablet Take 1 tablet (0.3 mg) by mouth once daily. Take daily for 21 days then do not take for 7 days. Active levothyroxine sodium 0.125 mg oral tablet (20 sources) l-Thyroxine Start: 08-07-2025 take 1 tablet by mouth once daily Start: 08-07-2025 take 1 tablet by juwan th once daily Start: 07-01-2025 End: 07-01-2025 take 125 ug [...] by mouth daily. 10/28/2024 Active Start: 01-20-2018 End: 08-07-2025 take 1 tablet by mouth once daily Levothyroxine (Levoxyl) 150 MCG tablet Discontinued 150 ug PO DAILY January 20, 2018 12:00am August 07, 2025 7:57am levothyroxine (S ynthroid, Levoxyl) 150 mcg tablet Take 137 mcg by mouth once daily in the morning. Take before meals. Active metFORMIN hydrochloride 1000 mg oral tablet (8 [...] 09/11/2023 Active Multiple Vitamins-Minerals (Centrum Adults) tablet (5 sources) Start: 07-05-2025 take 40-44.9 tablets by mouth once daily Multiple Vitamins-Minerals (Centrum Adults) tablet Indications: H/O gastric bypass , Deficiency of multiple nutrient elements , Deficiency of other specified B group vitamins , Morbid obesity with BMI of 40.0-44.9, adult ([facility]) , Gastroesophageal reflux disease without esophagitis Take 2 tablets by mouth daily. 60 tablet 11 07/05/2025 Active Multivitamin (Daily Multi-Vitamin) tablet (5 sources) Start: 08-07-2025 multivitamin tablet (1 source) take 1 tablet by mouth once daily multivitamin tablet Take 1 tablet by mouth once daily. Centrum 50 + woman Active nystatin 958431 unt/ml oral suspension (5 sources) Polyene Antifungal Start: 07-05-2025 End: 09-03-2025 take 5 mL by mouth four times daily nystatin (Mycostatin) 091587 UNIT/ML suspension Take 5 mL (500,000 Units) [...] tablet (20 sources) Proton Pump Inhibitor Start: 08-07-2025 take 1 tablet by mouth once daily Start: 08-07-2025 take 1 tablet by juwan th once daily Start: 01-12-2025 take 1 tablet by juwan th once daily pantoprazole (ProtoNix) 40 MG EC tablet Indications: Gastroesophageal Reflux Disease Take 40 mg by mouth daily. 01/12/2025 Active thiamine 50 mg oral tablet (10 sources) Start: 08-07-2025 take 1 tablet by mouth once da jane Start: 08-07-2025 take 1 tablet by juwan th once daily Start: 07-05-2025 take 1 tablet by juwan th once daily, then take 1 tablet by [...] tablet by mouth daily. 30 tablet 11 07/05/2025 Active Varenicline (12 sources) Partial Cholinergic Nicotinic Agonist Start: 01-20-2018 take 1 tablet by mouth once daily Varenicline (Chantix) 1 EACH Tab.Ds.Pk Active 1 EACH PO DAILY January 20, 2018 5:31pm Start: 01-20-2018 End: 08-07-2025 take 1 tablet by mouth once daily Varenicline Tartrate (Chantix) 1 EACH tablets,dose pack Discontinued 1 NMA PO DAILY January 20, 2018 12:00am August 07, 2025 7:57am Start: 01-20-2018 take 1 tablet by juwan th once daily Varenicline Tartrate (Chantix) 1 EACH tablets,dose pack Active 1 NMA PO DAILY January 20, 2018 12:00am Vitamin B Complex (Vitamins B Complex) capsule (5 sources) Start: 08-07-2025 vitamin b12 5 mg oral capsule (10 sources) Vitamin B12 Start: 08-07-2025 take 1 capsule by mo ut once daily Start: 08-07-2025 take 1 capsule by mo ut once daily Start: 07-05-2025 take 1 tablet under the [...] to dissolve once daily 30 tablet 11 07/05/2025 Active Completed/Discontinued Medications Medication Drug Class(es) [...] and physical. amoxicillin 500 mg oral capsule (12 sources) Penicillin-class Antibacterial Start: 01-20-2018 End: 10-13-2019 [...] Please administer 60 min prior to procedure. citalopram 20 mg oral tablet (20 sources) Serotonin Reuptake Inhibitor Start: 08-07-2025 End: 08-07-2025 take 1 tablet by mouth once daily Citalopram 20 mg tablet Discontinued 20 mg PO DAILY August 07, 2025 12:00am August 07, 2025 8:16am Start: 01-14-2025 End: 07-01-2025 take 1 tablet by mouth once daily citalopram (CeleXA) 20 MG tablet Indications: Major Depressive Disorder Take 20 mg by mouth daily. 01/14/2025 Active diatrizoate meglumine-sodium (Gastrografin) 66-10 % solution 60 [...] II/On Unit, Indication of Use: Prophylaxis-DVT/ PE gabapentin 400 mg oral capsule (12 sources) Anti-epileptic Agent Start: 10-13-2019 End: 08-07-2025 take 1 capsule by mouth once daily Gabapentin 400 mg capsule Discontinued 400 mg PO DAILY October 13, 2019 1:00am August 07, 2025 7:58am 500 ml glucose 50 mg/ml / potassium chloride 0.02 meq/ml / sodium chloride 4.5 mg/ml injection (2 sources) Start: 06-30-2025 End: 07-01-2025 take 100 mL intravenously every hour 100 mL/hr, IntraVENous, Continuous, Starting on Sat06/30/25 at 1145, Phase II/On Unit 0.5 ml heparin sodium, porcine 45476 unt/ml prefilled syringe (2 sources) Unfractionated Heparin, [...] 60 bpm, Starting on Sat06/30/25 at 1520 Multiple Vitamins-Minerals (CENTRUM SILVER ULTRA WOMENS PO) (20 sources) End: 07-05-2025 take 1 tablet by mouth once daily Multiple Vitamins-Mineral s (CENTRUM SILVER ULTRA WOMENS PO) Take 1 [...] and vomiting promethazine (Phenergan) tablet 12.5 mg raNITIdine 150 mg oral tablet (12 sources) Histamine-2 Receptor Antagonist Start: 10-13-2019 End: 08-07-2025 take 1 tablet by mouth once daily Ranitidine Hcl (Zantac) 150 mg tablet Discontinued 150 mg PO DAILY October 13, 2019 1:00am August 07, 2025 7:57am 72 hr scopolamine 0.0139 mg/hr transdermal system [...] (2 times per day), First dose on [facility] 03/25/25 at 2100, Preprocedure Start: 03-25-2025 End: 03-25-2025 10 mL, IntraVENous, Every 12 hours scheduled (2 times per day), First dose on [facility] 03/25/25 at 2100, Preprocedure Start: 03-25-2025 End: 03-25-2025 10 mL, IntraVENous, Every 12 hours scheduled (2 times per day), First dose on [facility] 03/25/25 at 2100, Preprocedure Start: 03-25-2025 End: 03-25-2025 10 mL, IntraVENous, Every 12 hours scheduled (2 times per day), First dose on [facility] 03/25/25 at 2100, Preprocedure Start: 03-25-2025 End: [...] Classification Problem Date Documented Da te Episodic/Chronic Abdominal pain (6 sources) Abdominal pain; Translations: [Unspecified abdominal pain] Onset: 5 08-07-2025 Episodic Anxiety disorders (6 sources) Anxiety disorder; Translations: [Other specified anxiety disorders] Onset: 5 03-02-2025 Chronic Disorders of lipid metabolism (1 source) Hyperlipidemia, unspecified; Translations: [Hyperlipidemia, 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 Esophageal disorders (20 sources) Gastroesophageal reflux disease; Translations: [Gastro-esophageal reflux disease without esophagitis] Onset: 2 08-13-2023 Chronic External Injury - Fall (2 sources) Other fall on same level, initial encounter; Translations: [Other fall on same level, initial encounter] Onset: 8 Malaise and fatigue (1 source) Other fatigue; Translations: [Other fatigue] Onset: 5 Episodic Miscellaneous mental health disorders (6 sources) Eating disorder; Translations: [Other specified eating disorder] Onset: 5 03-02-2025 Chronic Mood disorders (20 sources) Major depressive disorder; Translations: [Major depressive disorder, single episode, unspecified] Onset: 5 01-25-2025 Chronic Nutritional deficiencies (13 sources) Deficiency of multiple nutrient elements; Translations: [Deficiency of multiple nutrient elements] Onset: 5 03-11-2025 Episodic Other bone disease and musculoskeletal deformities (20 sources) Segmental and somatic dysfunction; Translations: [Segmental and somatic dysfunction of lumbar region] 10-13-2019 Episodic Other endocrine disorders (1 source) Julian's syndrome, unspecified; 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, 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 Other gastrointestinal disorders (17 sources) History of bypass of stomach; Translations: [Bariatric surgery status] Onset: 5 06-30-2025 Episodic Other gastrointestinal disorders (2 sources) Bariatric surgery status; Translations: [Bariatric surgery status] Onset: 5 Episodic Other gastrointestinal disorders (5 sources) Constipation; Translations: [Constipation, unspecified] 08-07-2025 Episodic Other nervous system disorders (2 sources) Postoperative pain ; Translations: [Other acute postprocedural pain] 06-30-2025 Episodic Other nervous system disorders (2 sources) Other acute postprocedural pain; Translations: [Other acute postprocedural pain] Onset: 5 Episodic Other nutritional; endocrine; and metabolic disorders (5 sources) Morbid (severe) obesity due to excess calories; Translations: [Morbid (severe) obesity due to excess calories ([facility])] Onset: 3 Chronic Other nutritional; endocrine; and metabolic disorders (20 sources) Morbid obesity; Translations: [Morbid (severe) obesity due to excess calories] Onset: 5 01-25-2025 Chronic Other nutritional; endocrine; and metabolic disorders (2 sources) Severe obesity; Translations: [Class 2 severe obesity due to excess calories with serious comorbidity and body mass index (BMI) of 38.0 to 38.9 in adult ([facility])] 08-02-2025 Chronic Other nutritional; endocrine; and metabolic disorders (2 sources) Body mass index (BMI) 38.0-38.9, adult; Translations: [Body mass index (BMI) 38.0-38.9, adult] Onset: 5 Chronic Other nutritional; endocrine; and metabolic disorders (3 sources) Body mass index (BMI) 40.0-44.9, adult; Translations: [Body mass index (BMI) 40.0-44.9, adult ([facility])] Onset: 5 Chronic Other screening for suspected conditions (not mental disorders or infectious disease) (19 sources) Ultrasonography of breast abnormal; Translations: [Other abnormal and inconclusive findings on diagnostic imaging of breast] Onset: 5 08-09-2025 Episodic Spondylosis; intervertebral disc disorders; other back problems (12 sources) Arthropathy of lumbar facet joint; Translations: [Spondylosis without myelopathy or radiculopathy, lumbar region] 10-13-2019 Chronic Substance-related disorders (6 sources) Nicotine dependence, cigarettes, uncomplicated; Translations: [Tobacco dependence caused by cigarettes] Onset: 8 02-19-2025 Chronic Thyroid disorders (20 sources) Hypothyroidism; Translations: [Hypothyroidism, unspecified] Onset: 2 01-25-2025 Chronic Unclassified (1 source) Obesity, class 2; Translations: [Obesity, class 2] Onset: 5 Unclassified (1 source) Low back pain, unspecified; Translations: [Low back pain, unspecified] Onset: 5 Past or Other Problems Problem Classification Problem Date Documented Da te Episodic/Chronic Immunizations and screening for infectious disease (2 sources) Encounter for immunization; Translations: [Encounter for immunization] Onset: 01-20-2018 Episodic Other fractures (6 sources) Wedge compression [...] upper arm, init encntr] Onset: 01-20-2018 Episodic Other nutritional; endocrine; and metabolic disorders (20 sources) Body mass index 40+ - severely obese; Translations: [Morbid (severe) obesity due to excess calories] Onset: 08-13-2023 Resolved: 08-02-2025 10-15-2023 Chronic Spondylosis; intervertebral disc disorders; other back problems (3 sources) Dorsalgia, unspecified; Translations: [Radiculopathy, lumbar region] Onset: 01-20-2018 Episodic Thyroid disorders (2 sources) Disorder of thyroid, unspecified; Translations: [Disorder of thyroid, unspecified] Onset: 01-20-2018 Episodic Unclassified (3 sources) Onset: 10-15-2023 10-15-2023 Unclassified (20 sources) Patient encounter status 01-28-2025 Unclassified (10 sources) history of thoracic fracture 06-11-2022 Unclassified (1 source) Obesity, class 2; Translations: [Obesity, class 2] Onset: 08-02-2025 Results Test Name Value Interpretation Reference Range Facility Surgery Visit Reporton 09-14 Surgery Visit Report [facility] [address] [place] [address] [address] [place] [address] OFFICE VISIT Date of Service: 09/14/25 MR#: [id number] Acct: [id number] Name: JAIME ONEILL Rep #: [id number] : 1965 Provider: Dr. Agus colbert MD Age/Sex: 59/F Location: [facility] Status: Signed Intake Vital Signs 08/09/25 13:47 09/14/25 14:36 Height 5 ft 5 in 5 ft 5 in Weight: 228 lb BMI 37.9 BP 147/78 H Blood Pressure Location Rt brachial Position Sitting Respiration 17 Pulse 74 Pulse Source Monitor Temp 97.2 F L Temp Source Temporal Pulse Oximetry (%) 99 Oxygen Delivery Method room air Intake Visit Reasons: DISCUSS SX Chief Complaint: discuss sx Is patient in pain?: No Allergies No Known Allergies Allergy (Verified 09/14/25 14:37) Medications ???Medication ???Instructions ???Recorded ???Confirmed ???Type biotin 5 mg capsule 5 mg PO DAILY 08/07/25 09/14/25 Hi story bisacodyl 10 mg rectal suppository 10 mg IN DAILY PRN constipation 08/07/25 09/14/25 Rx (Laxative (bisacodyl)) #12 ea black cohosh 200 mg capsule 200 mg PO DAILY 08/07/25 09/14/25 History calcium citrate 500 mg PO TID 08/07/25 09/14/25 Hi story cholecalciferol (vitamin D3) 50 100 mcg PO DAILY 08/07/25 09/14/25 History mcg (2,000 unit) capsule cyanocobalamin (vitamin B-12) 5,000 mcg PO DAILY 08/07/25 History 5,000 mcg capsule levothyroxine 125 mcg tablet 125 mcg PO DAILY 08/07/25 09/14/25 History multivitamin (Daily Multi-Vitamin 1 tab PO DAILY 08/07/25 09/14/25 History tablet) pantoprazole 40 mg tablet,delayed 40 mg PO DAILY 08/07/25 09/14/25 History release thiamine mononitrate (vit B1) 50 50 mg PO DAILY 08/07/25 09/14/25 H istory mg tablet vitamin B complex (Vitamins B 1 cap PO DAILY 08/07/25 09/14/25 H istory Complex capsule) [facility] Medical History Abnormal mammogram of right breast Abnormal ultrasound of breast history of thoracic fracture Acid indigestion Hyperthyroidism Surgical History Gastric bypass status for obesity History of tubal ligation History of partial hysterectomy History of cholecystectomy Social History Smoking Status: Former smoker Tobacco: How many years used: 32 second hand exposure: Yes quit status: considering quitting alcohol intake: current alcohol intake frequency: 0-2 drinks per day Alcohol type: hard liquor substance use type: does not use what type of physical activity do you participate in: none HPI HPI HPI: The patient is a 59-year-old female who is following up today after recent right breast ultrasound- guided biopsy. 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 I contacted her by telephone after the pathology results were posted and we discussed proceeding with excisional biopsy. She was interested in doing so. She presents today to set up the biopsy. She denies any significant issues or problems following the right breast biopsy. ROS General General: Yes weight change (loss); No appetite, fatigue, colon cancer, breast cancer or weakness HEENT HEENT: No difficulty swallowing, eye injury, eye surgery, swollen glands or hoarseness Endo Endocrine: Yes thyroid disease; No diabetes mellitus, thyroid cancer, Hair loss, heat intolerance or cold intolerance Skin Skin: No rash or changing moles Breast Breast: Yes abnormal mammogram and abnormal US; No left breast lump, right breast lump, nipple discharge, breast pain or breast enlargement Musc Musculoskeletal: Yes back problems; No arthritis, rheumatoid arthritis, gout or joint pain Cardio Cardiovascular: No murmur, pacemaker, heart disease, atrial fibrillation, high blood pressure, heart attack, heart stent, palpitations, shortness of breath with exertion or chest pain Psych Psychiatric: Yes depression and anxiety; No hearing voices Resp Respiratory: No shortness of breath, No sleep apnea, No cough, No COPD, No asthma, No emphysema and No wheezing Gastro Gastrointestinal: No abdominal pain, No nausea or vomiting, No diarrhea, No constipation, No blood in stool, Yes acid reflux, No hemorrhoids, No ulcers, No gallbladder problem and No black,tarry stools Van Hematologic: No blood thinners, No blood disorders, No bleeding, No anemia and No blood clots Neuro Neurologic: No numbness, No tingling and No weakness Exam Const General: cooperative, healthy appearing, comfortable and no acute distress [facility] Head: normal to inspection Eyes General: appearance normal, both eyes and all related structures Assessmen (more content not included)... Normal [facility] Anion gap in Serum or Plasma Ordered By: Edilberto Loza on 09-02-2025 Anion gap [Moles/Vol] 9 mmol/L 5-15 [facility] BUN/creatinine ratioOrdered By: Edilberto Loza on 09-02-2025 Urea nitrogen/Creatinine [Mass ratio] 25.2 mg/mg High 08-30 [facility] Bilirubin, totalOrdered By: Edilberto Loza on 09-02-2025 Bilirubin [Mass/Vol] 0.44 mg/dL 0.00-1.30 [facility] Carbon dioxide, total [Moles /volume] in Central venous bloodOrdered By: Edilberto Loza on 09-02-2025 CO2 [Moles/Vol] 28.0 mmol/L 21.0-32.0 [facility] Chloride assayOrdered By: Ricardo Loza on 09-02-2025 Chloride [Moles/Vol] 105 mmol/L 98-108 [facility] Comprehensive Metabolic Prof ilon 09-02-2025 Albumin [Mass/Vol] 4.5 g/dL Normal 3.4-4.8 [facility] Comment on above: Performed By: #### L 500.4050 #### [facility] [address] [place], [address] Albumin/Globulin [Mass ratio] 1.5 {ratio} Normal 0.9-2.4 [facility] Comment on above: Performed By: #### L 500.4050 #### [facility] [address] [place], [address] ALK PHOS 89 U/L Normal 35-104 [facility] Comment on above: Performed By: #### L 500.4050 #### [facility] [address] [place], [address] ALT [Catalytic activity/Vol] 52 U/L High <=34 [facility] Comment on above: Performed By: #### L 500.4050 #### [facility] [address] [place], [address] AST [Catalytic activity/Vol] 55 U/L High <=31 [facility] Comment on above: Performed By: #### L 500.4050 #### [facility] [address] [place], [address] Bilirubin [Mass/Vol] 0.44 mg/dL Normal 0.00-1.30 [facility] Comment on above: Performed By: #### L 500.4050 #### [facility] [address] [place], [address] BUN/CRE 25.2 RATIO High 10-20 [facility] Comment on above: Performed By: #### L 500.4050 #### [facility] [address] [place], [address] Calcium [Mass/Vol] 9.6 mg/dL Normal 7.6-11.0 [facility] Comment on above: Performed By: #### L 500.4050 #### [facility] [address] [place], [address] Chloride [Moles/Vol] 105 mmol/L Normal 98-108 [facility] Comment on above: Performed By: #### L 500.4050 #### [facility] [address] [place], [address] CO2 [Moles/Vol] 28.0 mmol/L Normal 21.0-32.0 [facility] Comment on above: Performed By: #### L 500.4050 #### [facility] [address] [place], [address] Creatinine [Mass/Vol] 0.61 mg/dL Low 0.70-1.20 [facility] Comment on above: Performed By: #### L 500.4050 #### [facility] [address] [place], [address] GAP 9 Normal 5-15 [facility] Comment on above: Performed By: #### L 500.4050 #### [facility] [address] [place], [address] GFR/1.73 sq M.predicted among non-blacks MDRD (S/P/Bld) [Vol rate/Area] 102 mL/min/{1.73_m2} Normal >60 [facility] Comment on above: Result Comment: mL/m in/1.73m2 CKD-EPI Creatinine Equation (2020) Performed By: #### L 500.4050 #### [facility] [address] [place], [address] Globulin (S) [Mass/Vol] 3.1 g/dL Normal 2.2-4.2 [facility] Comment on above: Performed By: #### L 500.4050 #### [facility] [address] [place], [address] Glucose [Mass/Vol] 97 mg/dL Normal 70-99 [facility] Comment on above: Performed By: #### L 500.4050 #### [facility] [address] [place], [address] Potassium [Moles/Vol] 4.4 mmol/L Normal 3.3-5.1 [facility] Comment on above: Performed By: #### L 500.4050 #### [facility] [address] [place], [address] Sodium [Moles/Vol] 142 mmol/L Normal 133-145 [facility] Comment on above: Performed By: #### L 500.4050 #### [facility] [address] [place], [address] T PROT 7.5 g/dL Normal 5.9-8.4 [facility] Comment on above: Performed By: #### L 500.4050 #### [facility] [address] [place], [address] Urea nitrogen [Mass/Vol] 15 mg/dL Normal 4-19 [facility] Comment on above: Performed By: #### L 500.4050 #### [facility] [address] [place], [address] Glomerular filtration rate ( GFR) estimation/1.73 sq m using serum, plasma, or whole bOrdered By: Edilberto Loza on 09-02-2025 GFR/1.73 sq M.predicted among non-blacks MDRD (S/P/Bld) [Vol rate/Area] 102 mL/min/{1.73_m2} >60 [facility] Comment on above: mL/min/1.73m2 CKD-EP I Creatinine Equation (2020) Laboratory - Chemistry and C hemistry - challengeOrdered By: Edilberto Loza on 09-02-2025 AST [Catalytic activity/Vol] 55 U/L High <32 [facility] Potassium measurement (mass/ volume)Ordered By: Edilberto Loza on 09-02-2025 Potassium (Unsp spec) [Mass/Vol] 4.4 mmol/L 3.3-5.1 [facility] Serum creatinine measurement (mass/volume)Ordered By: Edilberto Loza on 09-02-2025 Creatinine [Mass/Vol] 0.61 mg/dL Low 0.70-1.20 [facility] Serum globulin measurementOr dered By: Edilberto Loza 09-02-2025 Globulin (S) [Mass/Vol] 3.1 g/dL 2.2-4.2 [facility] Serum glucose measurement (m ass/volume)Ordered By: Edilberto Loza on 09-02-2025 Glucose [Mass/Vol] 97 mg/dL 70-99 [facility] Serum or plasma alanine fisher otransferase (ALT) measurementOrdered By: Edilberto Loza on 09-02-2025 ALT [Catalytic activity/Vol] 52 U/L High <35 [facility] Serum or plasma albumin milena urement (mass/volume)Ordered By: Edilberto Loza 09-02-2025 Albumin [Mass/Vol] 4.5 g/dL 3.4-4.8 [facility] Serum or plasma albumin/glob ulin mass ratioOrdered By: Edilberto Loza 09-02-2025 Albumin/Globulin [Mass ratio] 1.5 {ratio} 0.9-2.4 [facility] Serum or plasma alkaline tana sphatase measurementOrdered By: Edilberto Loza 09-02-2025 ALP [Catalytic activity/Vol] 89 U/L 35-104 [facility] Serum or plasma calcium milena urement (mass/volume)Ordered By: Edilberto Loza 09-02-2025 Calcium [Mass/Vol] 9.6 mg/dL 7.6-11.0 [facility] Serum or plasma urea nitroge n measurement (mass/volume)Ordered By: Edilberto Loza 09-02-2025 Urea nitrogen [Mass/Vol] 15 mg/dL 4-19 [facility] Sodium levelOrdered By: Edilberto Loza 09-02-2025 Sodium [Moles/Vol] 142 mmol/L 133-145 [facility] Total proteinOrdered By: Edilberto Loza 09-02-2025 Protein [Mass/Vol] 7.5 g/dL 5.9-8.4 [facility] DIAG MAMM W/CAD, UNILATon DIAG MAMM W/CAD, UNILAT [facility] Imaging Services [address] [place], [place] [address] DIAG MAMM W/CAD, UNILAT MR#: [id number] Acct: [id number] Name: JAIME ONEILL Rep #: [id number] : 1965 F 59 From: Aden valderrama MD PCP: Dr. Edilberto Loza MD Status: REG CLI Study: DIAG MAMM W/CAD, UNILAT Date of Exam: 08/17/25 Exam# [id number] Ordering Dr: Agus Islas MD EXAM: DIAG MAMM W/CAD, UNILAT 08/17/2025 CLINICAL HISTORY: F, Age 59 y/o , POST U/S BX CLIP PLACEMENT TECHNIQUE: Procedure Code: [id number] Modality: MG Procedure: DIAG MAMM W/CAD, UNILAT. COMPARISON: Prior exam(s) dated prior mammogram dated July 26, 2025.. FINDINGS: TISSUE DENSITY: There are scattered areas of fibroglandular density. Bilateral Breast Mammographic Findings: A tissue clip marker is seen within the 7 mm nodule in the inferior medial retroareolar region of the breast. BI/DIAG MAMM W/CAD, UNILAT IMPRESSION: Tissue clip marker is seen within the 7 mm nodule in the inferior medial retroareolar region of the breast. OVERALL FINAL ASSESSMENT BI-RADS 3: PROBABLY BENIGN. RECOMMENDATION: Routine annual follow-up in 1 Year Additional Recommendation none A letter with findings and recommendations will be mailed to the patient. Reading Location: [facility] CC: Dr. Agus Islas MD; Dr. Edilberto Loza MD Garbage Truck Driver: Signed Normal [facility] Immunohistochemical Stainson 08-17-2025 Immunohistochemical Stains Patient Age/Sex Location Account Attending Physician JAIME ONEILL 59/F OPUS [id number] Dr. Agus Islas MD Specimen: [id number] Received: 08/17/25 Status: DAI Mccrary Num: [id number] Spec Type: BREAST BX Subm Dr: Dr. Agus Islas MD HEADER OPERATION: Breast biopsy PRE-OP DIAGNOSIS: Right breast - retro 4o'clock, 1cm from nipple TISSUE SUBMITTED: Right breast - retro 4o'clock, 1cm from nipple MICROSCOPIC DIAGNOSIS A. 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 The slides are reviewed with Dr. Damico in consultation. MICROSCOPIC DESCRIPTION Slides are reviewed. All matched controls reacted appropriately. These tests were developed and their performance characteristics determined by [facility]. They may not have been cleared or approved by the U.S. Food and Drug Administration. The FDA has determined that such clearance or approval is not necessary. The above immunohistochemical markers are viewed by the Pathologist. GROSS DESCRIPTION A. Received in formalin labeled with the patient's name and date of . Designated as right breast is a 1.7 x 1.0 x 0.3 cm aggregate of pink-yellow fragmented tissue cores. Entirely submitted in 1 cassette. Cold ischemic time: <1-minuteFormalin fixation time: 30 hours, 30 minutes MS 08/17/2025 CPT:12971,54480,83155 Patient Age/Sex Location Account Attending Physician JAIME ONEILL 59/F OPUS [id number] Dr. Agus Islas MD Signed (signature on file) Dr. Isabella Osborn DO 08/23/25 1407 Normal [facility] Comment on above: Performed By: #### L 501.9520, L500.4100, L100.0100 #### [facility] [address] [facility] [place], [address] Operative Reporton 5 Operative Report [facility] Medical Records Department [address] [place] [address] Operative Report 08/17/25 1315 MR#: [id number] Acct: [id number] Name: JAIME ONEILL Rep #: [id number] : 1965 59 From: Agus Islas MD PCP: Dr. Edilberto Loza MD Status:REG CLI Location: OPUS Procedures Integumentary 16xxx-193xx: 21459 Bx breast 1st lesion us imag Operative Report (Standard) Operative Information Date of Procedure: 08/17/25 Pre-Operative Diagnosis: Abnormal right breast mammogram and ultrasound Post-Operative Diagnosis: Same Surgery/Procedure Performed: Ultrasound-guided right breast mammotome biopsy x 1 site senior vice president & general counsel: No Type of Anesthesia: Local Procedure Start Time: 12:45 Procedure Stop Time: 13:05 Select all DRAINS/GRAFTS/IMPLANTS that apply: Implanted device Implanted device details: Marking clip deployed at the completion of the procedure Estimated Blood Loss: Minimal Specimen collected: Yes Description of specimen(s) removed: Right breast tissue Description of surgery: The patient is a 59-year-old female who was recently seen to the office with an abnormal right breast mammogram and ultrasound. A 1 cm or less hypoechoic lesion was identified at the 4 o'clock position of the right breast about 1 cm from the nipple. This was felt to most likely represent a fibroadenoma however biopsy was recommended by radiology. I recommended mammotome biopsy in the radiology suite and as this was a very small lesion. We discussed the details of the planned procedure and she wished to proceed. After obtaining informed consent, she was placed supine on the procedure room cart. The hydro plant technician was able to identify the lesion again at the 4 o'clock position 1 cm from the nipple. Once this was clearly identified, the skin of the right breast was prepped and draped in the usual sterile manner. Local anesthetic was infiltrated in the vicinity of the lesion. A #11 blade was then used to make a small skin incision. Next the mammotome probe was inserted under ultrasound guidance and was positioned just deep to the lesion. Once in satisfactory position, about 4-5 passes were made into the lesion under ultrasound guidance. This seemed to appropriately biopsy the lesion in question. At the completion of the biopsy, a marking clip was deployed under ultrasound guidance as well. Patient tolerated the procedure well. Steri-Strips and OpSite were applied as dressing. She will undergo postprocedure mammogram. I will contact her with results once they become available. Surgical Findings: See procedure note Complications Complications: No Admit VTE Documentation VTE Present on Admission: No VTE Mechan Device Prophylaxis: None VTE Pharm Prophylaxis ordered?: No Reason prophylaxis not ordered: Treatment Not Indicated 08/17/25 1324 Cosigner Signature (if applicable): CC: Dr. Agus Islas MD; Dr. Edilberto Loza MD Signed Normal [facility] US Breast Biopsy 1st Lesiono n 08-17-2025 US Breast Biopsy 1st Lesion [facility] Imaging Services [address] [place] [address] US Breast Biopsy 1st Lesion MR#: [id number] Acct: [id number] Name: JAIME ONEILL Rep #: [id number] : 1965 F 59 From: Aden valderrama MD PCP: Dr. Edilberto Loza MD Status: REG CLI Study: US Breast Biopsy 1st Lesion Date of Exam: 06/04 Exam# [id number] Ordering Dr: Mackenzie Eisenberg P A-C PROCEDURE: US BREAST BIOPSY 1ST LESION 08/17/2025 REASON FOR EXAM: F, Age 59 y/o , ABNORMAL ULTRASOUND RIGHT BREAST Ultrasound-guided right breast biopsy. TECHNIQUE: Procedure Code: [id number] Modality: US Procedure: US BREAST BIOPSY 1ST LESION COMPARISON: Prior exam(s) dating back to July 27, 2025 and prior mammogram dated July 23, 2025.. FINDINGS: ULTRASOUND: Ultrasound was targeted to the right retroareolar region of the right breast. Under direct sonographic guidance, the surgeon performed multiple core biopsies of the hypoechoic nodule at the 4 o'clock position of the breast at 1 cm from the nipple. US/US Breast Biopsy 1st Lesion IMPRESSION: OVERALL FINAL ASSESSMENT: BIRADS 11 WAITING PATHOLOGY RECOMMENDATION: Routine annual follow-up in 1 Year Reading Location: [id number] CC: ИРИНА Eisenberg; Dr. Edilberto Loza MD Garbage Truck Driver: Signed Normal [facility] Anion gap in Serum or Plasma Ordered By: Edilberto Loza on 08-10-2025 Anion gap [Moles/Vol] 11 mmol/L 5-15 [facility] BUN/creatinine ratioOrdered By: Edilberto Loza on 08-10-2025 Urea nitrogen/Creatinine [Mass ratio] 12.6 mg/mg 08-30 [facility] Bilirubin, totalOrdered By: Edilberto Loza on 08-10-2025 Bilirubin [Mass/Vol] 0.35 mg/dL 0.00-1.30 [facility] Carbon dioxide, total [Moles /volume] in Central venous bloodOrdered By: Edilberto Loza on 08-10-2025 CO2 [Moles/Vol] 26.9 mmol/L 21.0-32.0 [facility] Chloride assayOrdered By: Ricardo Loza on 08-10-2025 Chloride [Moles/Vol] 105 mmol/L 98-108 [facility] Comprehensive Metabolic Prof ilon 08-10-2025 Albumin [Mass/Vol] 4.5 g/dL Normal 3.4-4.8 [facility] Comment on above: Performed By: #### L 500.4050 #### [facility] [place], [address] Albumin/Globulin [Mass ratio] 1.5 {ratio} Normal 0.9-2.4 [facility] Comment on above: Performed By: #### L 500.4050 #### [facility] [address] [place], [address] ALK PHOS 96 U/L Normal 35-104 [facility] Comment on above: Performed By: #### L 500.4050 #### [facility] [address] [place], [address] ALT [Catalytic activity/Vol] 52 U/L High <=34 [facility] Comment on above: Performed By: #### L 500.4050 #### [facility] [address] [place], [address] AST [Catalytic activity/Vol] 49 U/L High <=31 [facility] Comment on above: Performed By: #### L 500.4050 #### [facility] [address] [place], [address] Bilirubin [Mass/Vol] 0.35 mg/dL Normal 0.00-1.30 [facility] Comment on above: Performed By: #### L 500.4050 #### [facility] [address] [place], [address] BUN/CRE 12.6 RATIO Normal 10-20 [facility] Comment on above: Performed By: #### L 500.4050 #### [facility] [address] [place], [address] Calcium [Mass/Vol] 9.4 mg/dL Normal 7.6-11.0 [facility] Comment on above: Performed By: #### L 500.4050 #### [facility] [address] [place], [address] Chloride [Moles/Vol] 105 mmol/L Normal 98-108 [facility] Comment on above: Performed By: #### L 500.4050 #### [facility] [address] [place], [address] CO2 [Moles/Vol] 26.9 mmol/L Normal 21.0-32.0 [facility] Comment on above: Performed By: #### L 500.4050 #### [facility] [address] [place], [address] Creatinine [Mass/Vol] 0.72 mg/dL Normal 0.70-1.20 [facility] Comment on above: Performed By: #### L 500.4050 #### [facility] [address] [place], [address] GAP 11 Normal 5-15 [facility] Comment on above: Performed By: #### L 500.4050 #### [facility] [address] [place], [address] GFR/1.73 sq M.predicted among non-blacks MDRD (S/P/Bld) [Vol rate/Area] 95 mL/min/{1.73_m2} Normal >60 [facility] Comment on above: Result Comment: mL/m in/1.73m2 CKD-EPI Creatinine Equation (2020) Performed By: #### L 500.4050 #### [facility] [address] [place], [address] Globulin (S) [Mass/Vol] 2.9 g/dL Normal 2.2-4.2 [facility] Comment on above: Performed By: #### L 500.4050 #### [facility] [address] [place], [address] Glucose [Mass/Vol] 92 mg/dL Normal 70-99 [facility] Comment on above: Performed By: #### L 500.4050 #### [facility] [address] [place], [address] Potassium [Moles/Vol] 4.0 mmol/L Normal 3.3-5.1 [facility] Comment on above: Performed By: #### L 500.4050 #### [facility] [address] [place], [address] Sodium [Moles/Vol] 142 mmol/L Normal 133-145 [facility] Comment on above: Performed By: #### L 500.4050 #### [facility] [address] [place], [address] T PROT 7.4 g/dL Normal 5.9-8.4 [facility] Comment on above: Performed By: #### L 500.4050 #### [facility] [address] [place], [address] Urea nitrogen [Mass/Vol] 9 mg/dL Normal 4-19 [facility] Comment on above: Performed By: #### L 500.4050 #### [facility] [address] [place], [address] Glomerular filtration rate ( GFR) estimation/1.73 sq m using serum, plasma, or whole bOrdered By: Edilberto Loza on 08-10-2025 GFR/1.73 sq M.predicted among non-blacks MDRD (S/P/Bld) [Vol rate/Area] 95 mL/min/{1.73_m2} >60 [facility] Comment on above: mL/min/1.73m2 CKD-EP I Creatinine Equation (2020) Laboratory - Chemistry and C hemistry - challengeOrdered By: Edilberto Loza on 08-10-2025 AST [Catalytic activity/Vol] 49 U/L High <32 [facility] Potassium measurement (mass/ volume)Ordered By: Edilberto Loza on 08-10-2025 Potassium (Unsp spec) [Mass/Vol] 4.0 mmol/L 3.3-5.1 [facility] Serum creatinine measurement (mass/volume)Ordered By: Edilberto Loza on 08-10-2025 Creatinine [Mass/Vol] 0.72 mg/dL 0.70-1.20 [facility] Serum globulin measurementOr dered By: Edilberto Loza on 08-10-2025 Globulin (S) [Mass/Vol] 2.9 g/dL 2.2-4.2 [facility] Serum glucose measurement (m ass/volume)Ordered By: Edilberto Loza on 08-10-2025 Glucose [Mass/Vol] 92 mg/dL 70-99 [facility] Serum or plasma alanine fisher otransferase (ALT) measurementOrdered By: Edilberto Loza on 08-10-2025 ALT [Catalytic activity/Vol] 52 U/L High <35 [facility] Serum or plasma albumin milena urement (mass/volume)Ordered By: Edilberto Loza on 08-10-2025 Albumin [Mass/Vol] 4.5 g/dL 3.4-4.8 [facility] Serum or plasma albumin/glob ulin mass ratioOrdered By: Edilberto Loza on 08-10-2025 Albumin/Globulin [Mass ratio] 1.5 {ratio} 0.9-2.4 [facility] Serum or plasma alkaline tana sphatase measurementOrdered By: Edilberto Loaz on 08-10-2025 ALP [Catalytic activity/Vol] 96 U/L 35-104 [facility] Serum or plasma calcium milena urement (mass/volume)Ordered By: Edilberto Loza on 08-10-2025 Calcium [Mass/Vol] 9.4 mg/dL 7.6-11.0 [facility] Serum or plasma urea nitroge n measurement (mass/volume)Ordered By: Edilberto Loza on 08-10-2025 Urea nitrogen [Mass/Vol] 9 mg/dL 4-19 [facility] Sodium levelOrdered By: Edilberto Loza on 08-10-2025 Sodium [Moles/Vol] 142 mmol/L 133-145 [facility] Total proteinOrdered By: Edilberto Loza on 08-10-2025 Protein [Mass/Vol] 7.4 g/dL 5.9-8.4 [facility] Surgery Visit Reporton 08-09 Surgery Visit Report [facility] [address] [place] [address] [address] [place] [address] OFFICE VISIT Date of Service: 08/09/25 MR#: [id number] Acct: [id number] Name: JAIME ONEILL Rep #: [id number] : 1965 Provider: Dr. Agus colbert MD Age/Sex: 59/F Location: [facility] Status: Signed Intake Vital Signs 08/07/25 07:24 08/09/25 13:47 Height 5 ft 5 in 5 ft 5 in Weight: 228 lb 6 oz BMI 38.0 BP 139/89 H Blood Pressure Location Lt radial Position Sitting Respiration 18 Pulse 75 Pulse Source Monitor Temp 97.9 F Temp Source Temporal Pulse Oximetry (%) 98 Oxygen Delivery Method room air Intake Visit Reasons: BIRADS 4 Chief Complaint: BIRADS 4 Is patient in pain?: No Allergies No Known Allergies Allergy (Verified 08/09/25 13:48) Medications ???Medication ???Instructions ???Recorded ???Confirmed ???Type biotin 5 mg capsule 5 mg PO DAILY 08/07/25 08/09/25 Hi story bisacodyl 10 mg rectal suppository 10 mg IN DAILY PRN constipation 08/07/25 08/09/25 Rx (Laxative (bisacodyl)) #12 ea black cohosh 200 mg capsule 200 mg PO DAILY 08/07/25 08/09/25 History calcium citrate 500 mg PO TID 08/07/25 08/09/25 Hi story cholecalciferol (vitamin D3) 50 100 mcg PO DAILY 08/07/25 08/09/25 History mcg (2,000 unit) capsule cyanocobalamin (vitamin B-12) 5,000 mcg PO DAILY 08/07/25 History 5,000 mcg capsule levothyroxine 125 mcg tablet 125 mcg PO DAILY 08/07/25 08/09/25 History multivitamin (Daily Multi-Vitamin 1 tab PO DAILY 08/07/25 08/09/25 History tablet) pantoprazole 40 mg tablet,delayed 40 mg PO DAILY 08/07/25 08/09/25 History release thiamine mononitrate (vit B1) 50 50 mg PO DAILY 08/07/25 08/09/25 H istory mg tablet vitamin B complex (Vitamins B 1 cap PO DAILY 08/07/25 08/09/25 H istory Complex capsule) PFSH Medical History (Updated 08/09/25 @ 13:47 by Francie Yusuf LPN) Abnormal mammogram of right breast Abnormal ultrasound of breast history of thoracic fracture Acid indigestion Hyperthyroidism Surgical History Gastric bypass status for obesity History of tubal ligation History of partial hysterectomy History of cholecystectomy Social History Smoking Status: Former smoker Tobacco: How many years used: 32 second hand exposure: Yes quit status: considering quitting alcohol intake: current alcohol intake frequency: 0-2 drinks per day Alcohol type: hard liquor substance use type: does not use what type of physical activity do you participate in: none HPI HPI HPI: The patient is a 59-year-old female who presents today for evaluation of an abnormal right breast mammogram and ultrasound. A less than 1 cm hypoechoic nodule was found in the right breast. This was read as potentially a fibroadenoma but recommended a biopsy. Patient denies any breast issues or complaints. No nipple discharge or drainage. No family history of breast cancer ROS General General: Yes weight change (loss); No appetite, fatigue, colon cancer, breast cancer or weakness HEENT HEENT: No difficulty swallowing, eye injury, eye surgery, swollen glands or hoarseness Endo Endocrine: Yes thyroid disease; No diabetes mellitus, thyroid cancer, Hair loss, heat intolerance or cold intolerance Skin Skin: No rash or changing moles Breast Breast: Yes abnormal mammogram and abnormal US; No left breast lump, right breast lump, nipple discharge, breast pain or breast enlargement Musc Musculoskeletal: Yes back problems; No arthritis, rheumatoid arthritis, gout or joint pain Cardio Cardiovascular: No murmur, pacemaker, heart disease, atrial fibrillation, high blood pressure, heart attack, heart stent, palpitations, shortness of breath with exertion or chest pain Psych Psychiatric: Yes depression and anxiety; No hearing voices Resp Respiratory: No shortness of breath, No sleep apnea, No cough, No COPD, No asthma, No emphysema and No wheezing Gastro Gastrointestinal: No abdominal pain, No nausea or vomiting, No diarrhea, No constipation, No blood in stool, Yes acid reflux, No hemorrhoids, No ulcers, No gallbladder problem and No black,tarry stools Van Hematologic: No blood thinners, No blood disorders, No bleeding, No anemia and No blood clots Neuro Neurologic: No numbness, No tingling and No weakness Exam Const General: cooperative, comfortable and no acute distress [facility] Head: normal to inspection and normocephalic Eyes General: appearance normal, both eyes and all related structures Chest Breast inspection: normal inspection of the breasts and normal inspection of the axillae Other: Ultrasound in the office w (more content not included)... Normal [facility] Abdomen/Pelvis WITH Contrast on 08-07-2025 Abdomen/Pelvis WITH Contrast [facility] Imaging Services [address] [place], [place] [address] Abdomen/Pelvis WITH Contrast MR#: [id number] Acct: [id number] Name: JAIME ONEILL Rep #: [id number] : 1965 F 59 From: Hilary Sahu MD PCP: Dr. Edilberto Loza MD Status: REG ER Study: Abdomen/Pelvis WITH Contrast Date of Exam: Exam# [id number] Ordering Dr: Bravo Luz MD PROCEDURE: ABDOMEN/PELVIS WITH CONTRAST 08/07/2025 REASON FOR EXAM: CONSTIPATION, PAIN STATUS POST GASTRIC BYPASS TECHNIQUE: Procedure Code: [id number] Modality: CT Procedure: ABDOMEN/PELVIS WITH CONTRAST Coronal and Sagittal reconstruction series were provided. CONTRAST: Isovue 370 VOLUME: 100 mL One or more dose reduction techniques were used (e.g., Automated exposure control, adjustment of the mA and/or kV according to patient size, use of iterative reconstruction technique. RADIATION DOSE SUMMARY: CTDlvol: 23.75 mGy DLP: 1301.57 mGycm COMPARISON: None. FINDINGS: Lung bases: Clear. Liver: Liver steatosis. Focal areas of fatty infiltration near the ligamentum teres. Gallbladder: Status post cholecystectomy. No biliary dilation. Spleen: Unremarkable. Pancreas: Unremarkable. Adrenals: Unremarkable. Kidneys: A 1 mm stone at the lower pole of the left kidney. No hydronephrosis. No nephrolithiasis. Bladder: Unremarkable. Reproductive Organs: Unremarkable. Bowel: Status post gastric bypass surgery. Colonic diverticulosis. No bowel wall thickening. No bowel obstruction. Appendix: Unremarkable. Lymph nodes: No lymphadenopathy. Vasculature: No aneurysm. Peritoneum / Retroperitoneum: No free air or free fluid. Bones: No acute bony abnormalities. CT/Abdomen/Pelvis WITH Contrast IMPRESSION: A punctate stone at the lower pole of the left kidney. No hydronephrosis. Otherwise, no acute abdominopelvic abnormalities. Reading Location: [facility] CC: Dr. Bravo Luz MD; Dr. Edilberto Loza MD Garbage Truck Driver: Signed Normal [facility] Absolute lymphocyte countOrd ered By: Bravo Luz on 08-07-2025 Lymphocytes Auto (Unsp spec) [#/Vol] 1.09 10*3/uL 0.83-4.51 [facility] Absolute neutrophil countOrd ered By: Bravo Luz on 08-07-2025 Neutrophils (Bld) [#/Vol] 4.1 10*3/uL 2.0-7.7 [facility] Anion gap in Serum or Plasma Ordered By: Bravo Luz on 08-07-2025 Anion gap [Moles/Vol] 14 mmol/L 5-15 [facility] Automated lymphocyte count a s percentage of total leukocytesOrdered By: Bravo Luz on 08-07-2025 Lymphocytes/100 WBC Auto (Unsp spec) 18.7 % Low 19-41 [facility] BUN/creatinine ratioOrdered By: Bravo Luz on 08-07-2025 Urea nitrogen/Creatinine [Mass ratio] 13.2 mg/mg 10-20 [facility] Basophil percentageOrdered B y: Bravo Luz on 08-07-2025 Basophils/100 WBC (Bld) 0.5 % 0-1 [facility] Bilirubin Test strip Ql (U)O rdered By: Bravo Luz on 08-07-2025 Bilirubin Ql (U) Negative Negative [facility] Bilirubin, totalOrdered By: Bravo Luz on 08-07-2025 Bilirubin [Mass/Vol] 0.49 mg/dL 0.00-1.30 [facility] CBC W/Diff, Automatedon 07-13 Absolute Lymph 1.09 X10 3/uL Normal 0.83-4.51 [facility] Comment on above: Performed By: #### L 500.1610 #### [facility] [address] [place], [address] Absolute Neut 4.1 X10 3/uL Normal 2.0-7.7 [facility] Comment on above: Performed By: #### L 500.4050 #### [facility] [address] [place], [address] Basophils/100 WBC (Bld) 0.5 % Normal 0-1 [facility] Comment on above: Performed By: #### L [id number] #### [facility] [address] [place], [address] Eosinophils/100 WBC (Bld) 1.7 % Normal 0-5 [facility] Comment on above: Performed By: #### L [id number] #### [facility] [address] [place], [address] Erythrocyte distribution width (RBC) [Ratio] 13.6 % Normal 11.6-14.6 [facility] Comment on above: Performed By: #### L [id number] #### [facility] [address] [place], [address] Hematocrit (Bld) [Volume fraction] 38.1 % Normal 37-47 [facility] Comment on above: Performed By: #### L [id number] #### [facility] [address] [place], [address] Hemoglobin (Bld) [Mass/Vol] 12.5 g/dL Normal 12.0-15.0 [facility] Comment on above: Performed By: #### L [id number] #### [facility] [address] [place], [address] IG% 0.200 Normal 0.0-0.9 [facility] Comment on above: Result Comment: IG% - Immature Granulocytes (promyelocytes, myelocytes and metamyelocytes) > 1% indicates that a LEFT SHIFT is Present. Performed By: #### L [id number] #### [facility] [address] [place], [address] Lymphocytes/100 WBC (Bld) 18.7 % Low 19-41 [facility] Comment on above: Performed By: #### L [id number] #### [facility] [address] [place], [address] MCH (RBC) [Entitic mass] 29.9 pg Normal 27.0-32.0 [facility] Comment on above: Performed By: #### L [id number] #### [facility] [address] [place], [address] MCHC (RBC) [Mass/Vol] 32.8 g/dL Normal 32-36 [facility] Comment on above: Performed By: #### L [id number] #### [facility] [address] [place], [address] MCV (RBC) [Entitic vol] 91.1 fL Normal 81-99 [facility] Comment on above: Performed By: #### L [id number] #### [facility] [address] [place], [address] Monocytes/100 WBC (Bld) 9.2 % Normal 0-10 [facility] Comment on above: Performed By: #### L [id number] #### [facility] [address] [place], [address] Neutrophils/100 WBC (Bld) 69.7 % Normal 47-70 [facility] Comment on above: Performed By: #### L [id number] #### [facility] [address] [place], [address] Nucleated RBC (Bld) [#/Vol] 0 10*3/uL Normal 0-5 [facility] Comment on above: Performed By: #### L [id number] #### [facility] [address] [place], [address] Platelet mean volume (Bld) [Entitic vol] 12.0 fL Normal 6.2-12.0 [facility] Comment on above: Performed By: #### L [id number] #### [facility] [address] [place], [address] Platelets (Bld) [#/Vol] 163 10*3/uL Normal 150-450 [facility] Comment on above: Performed By: #### L [id number] #### [facility] [address] [place], [address] RBC (Bld) [#/Vol] 4.18 10*6/uL Low 4.2-5.4 [facility] Comment on above: Performed By: #### L [id number] #### [facility] [address] [place], [address] RDW SD 45.6 fl High 35.1-43.9 [facility] Comment on above: Performed By: #### L [id number] #### [facility] [address] [place], [address] WBC (Bld) [#/Vol] 5.8 10*3/uL Normal 4.4-11.0 [facility] Comment on above: Performed By: #### L [id number] #### [facility] [address] [place], [address] Carbon dioxide, total [Moles /volume] in Central venous bloodOrdered By: Bravo Luz on 08-07-2025 CO2 [Moles/Vol] 25.6 mmol/L 21.0-32.0 [facility] Chloride assayOrdered By: Alex Luz on 08-07-2025 Chloride [Moles/Vol] 103 mmol/L 98-108 [facility] Comprehensive Metabolic Prof ilon 09-27-2025 Albumin [Mass/Vol] 4.2 g/dL Normal 3.4-4.8 [facility] Comment on above: Performed By: #### L [id number] #### [facility] [address] [place], [address] Albumin/Globulin [Mass ratio] 1.4 {ratio} Normal 0.9-2.4 [facility] Comment on above: Performed By: #### L [id number] #### [facility] [address] [place], [address] ALK PHOS 96 U/L Normal 35-104 [facility] Comment on above: Performed By: #### L [id number] #### [facility] [address] [place], [address] ALT [Catalytic activity/Vol] 55 U/L High <=34 [facility] Comment on above: Performed By: #### L [id number] #### [facility] [address] [place], [address] AST [Catalytic activity/Vol] 49 U/L High <=31 [facility] Comment on above: Performed By: #### L [id number] #### [facility] [address] [place], [address] Bilirubin [Mass/Vol] 0.49 mg/dL Normal 0.00-1.30 [facility] Comment on above: Performed By: #### L [id number] #### [facility] [address] [place], [address] BUN/CRE 13.2 RATIO Normal 10-20 [facility] Comment on above: Performed By: #### L [id number] #### [facility] [address] [place], [address] Calcium [Mass/Vol] 9.2 mg/dL Normal 7.6-11.0 [facility] Comment on above: Performed By: #### L [id number] #### [facility] [address] [place], [address] Chloride [Moles/Vol] 103 mmol/L Normal 98-108 [facility] Comment on above: Performed By: #### L [id number] #### [facility] [address] [place], [address] CO2 [Moles/Vol] 25.6 mmol/L Normal 21.0-32.0 [facility] Comment on above: Performed By: #### L [id number] #### [facility] [address] [place], [address] Creatinine [Mass/Vol] 0.69 mg/dL Low 0.70-1.20 [facility] Comment on above: Performed By: #### L [id number] #### [facility] [address] [place], [address] ECRCL 102.24 ml/min Normal 50-250 [facility] Comment on above: Performed By: #### L [id number] #### [facility] [address] [place], [address] GAP 14 Normal 5-15 [facility] Comment on above: Performed By: #### L [id number] #### [facility] [address] [place], [address] GFR/1.73 sq M.predicted among non-blacks MDRD (S/P/Bld) [Vol rate/Area] 99 mL/min/{1.73_m2} Normal >60 [facility] Comment on above: Result Comment: mL/m in/1.73m2 CKD-EPI Creatinine Equation (2020) Performed By: #### L [id number] #### [facility] [address] [place], [address] Globulin (S) [Mass/Vol] 3.1 g/dL Normal 2.2-4.2 [facility] Comment on above: Performed By: #### L [id number] #### [facility] [address] [place], [address] Glucose [Mass/Vol] 105 mg/dL High 70-99 [facility] Comment on above: Performed By: #### L [id number] #### [facility] [address] [place], [address] Potassium [Moles/Vol] 3.4 mmol/L Normal 3.3-5.1 [facility] Comment on above: Performed By: #### L [id number] #### [facility] [address] [place], [address] Sodium [Moles/Vol] 142 mmol/L Normal 133-145 [facility] Comment on above: Performed By: #### L [id number] #### [facility] [address] [place], [address] T PROT 7.4 g/dL Normal 5.9-8.4 [facility] Comment on above: Performed By: #### L [id number] #### [facility] [address] [place], [address] Urea nitrogen [Mass/Vol] 9 mg/dL Normal 4-19 [facility] Comment on above: Performed By: #### L [id number] #### [facility] [address] [place], [address] Emergency Department Summary on 08-07-2025 Emergency Department Summary [facility] Medical Records Department [address] [place] [address] Emergency Department Summary 08/07/25 MR#: [id number] Acct: [id number] Name: JAIME ONEILL Rep #: [id number] : 1965 59 From: Bravo Luz MD PCP: Dr. Edilberto Loza MD Status:DEP ER Location: ED HPI HPI - GI History of Present Illness Chief Complaint: Constipation Narrative Narrative: 59-year-old female past medical history of gastric bypass surgery within the last month a month and a half, end of June, presents with constipation that she has had over the last 3 days. States she has not had a bowel movement. She is nauseated but not vomiting. No fevers or chills. She states she usually has bowel movements at least 3 times a day. She started eating regular food. She followed up with her gastric bypass surgeon at [facility] on Saturday, approximately 5 days ago. She had been doing well until about Saturday of this week when she stopped having bowel movements. She states that she is afraid to eat now. Her nausea has resolved. She states when she sits on the toilet and tries to have a bowel movement, she has pain. [facility] Medical History history of thoracic fracture Acid indigestion Hyperthyroidism Home Medications ???Medication ???Instructions ???Recorded ???Last Taken ???Type biotin 5 mg capsule 5 mg PO DAILY 08/07/25 08/04/25 Hi story bisacodyl 10 mg rectal suppository 10 mg IN DAILY PRN constipation 08/07/25 Unknown Rx (Laxative (bisacodyl)) #12 ea black cohosh 200 mg capsule 200 mg PO DAILY 08/07/25 08/04/25 History calcium citrate 500 mg PO TID 08/07/25 08/04/25 Hi story cholecalciferol (vitamin D3) 50 100 mcg PO DAILY 08/07/25 08/04/25 History mcg (2,000 unit) capsule cyanocobalamin (vitamin B-12) 5,000 mcg PO DAILY 08/07/25 History 5,000 mcg capsule levothyroxine 125 mcg tablet 125 mcg PO DAILY 08/07/25 08/07/25 History multivitamin (Daily Multi-Vitamin 1 tab PO DAILY 08/07/25 08/04/25 History tablet) pantoprazole 40 mg tablet,delayed 40 mg PO DAILY 08/07/25 08/06/25 History release thiamine mononitrate (vit B1) 50 50 mg PO DAILY 08/07/25 08/04/25 H istory mg tablet vitamin B complex (Vitamins B 1 cap PO DAILY 08/07/25 08/04/25 H istory Complex capsule) Allergy/AdvReac Type Severity Reaction Status Date / Time No Known Allergies Allergy Verified 08/07/25 07:24 Surgical History Gastric bypass status for obesity History of tubal ligation History of partial hysterectomy History of cholecystectomy Social History Smoking Status: Former smoker Tobacco: How many years used: 32 second hand exposure: Yes quit status: considering quitting alcohol intake: current alcohol intake frequency: 0-2 drinks per day Alcohol type: hard liquor substance use type: does not use what type of physical activity do you participate in: none ROS ROS ED ROS Narrative Review of systems positive for lack of bowel movement for 3 days. Abdominal pain when straining. Status post gastric bypass by about a month. No fevers or chills. Currently no nausea or vomiting. No true exacerbating or alleviating factors. Decreased p.o. intake. EXAM Physical Exam Narrative Exam Narrative: Afebrile. Vital signs noted. Nontoxic-appearing. Cardiovascular examination reveals a regular rate and rhythm. Lungs are clear to auscultation bilaterally. The abdomen is soft, nontender, with positive bowel sounds. No guarding or rebound. Const Vital Signs: 08/07/25 07:24 08/07/25 11:24 08/07/25 11:25 Temperature 98.3 F 98.3 F Temperature Source Oral Pulse Rate 78 65 65 Respiratory Rate 16 16 16 Blood Pressure 141/81 H 134/81 H 134/81 H Blood Pressure Mean 101 98 98 Pulse Ox 99 99 Oxygen Delivery Method Room Air MDM MDM MDM Narrative Medical decision making narrative: Differential diagnosis includes but not limited to partial small bowel obstruction/bowel obstruction versus constipation versus nonspecific abdominal pain versus pancreatitis. I do feel she requires CT imaging with p.o. and IV contrast as she is status post gastric bypass. She is no longer taking opiates. She may have dehydration or other electrolyte imbalance as she states she has had decreased p.o. intake. I reviewed her laboratory work and she has normal white count of 5.8 with hemoglobin 12.5, hematocrit 38.1, platelet count normal at 163. CMP is remarkable for creatinine low at 0.69 with a normal BUN of 9, no evidence of dehydration. Normal sodium and potassium. LFTs show slightly elevated AST and ALT at 49 and 55 respectively. I think is nonspecific. Lipase norm (more content not included)... Normal [facility] Eosinophil percentageOrdered By: Bravo Luz on 08-07-2025 Eosinophils/100 WBC (Bld) 1.7 % 0-5 [facility] Erythrocyte distribution wid th ratioOrdered By: Bravo Luz on 08-07-2025 Erythrocyte distribution width (RBC) [Ratio] 13.6 % 11.6-14.6 [facility] Erythrocyte distribution wid th standard deviationOrdered By: Bravo Luz on 08-07-2025 Erythrocyte distribution width (RBC) [Ratio] 45.6 fl High 35.1-43.9 [facility] Glomerular filtration rate ( GFR) estimation/1.73 sq m using serum, plasma, or whole bOrdered By: Bravo Luz on 08-07-2025 GFR/1.73 sq M.predicted among non-blacks MDRD (S/P/Bld) [Vol rate/Area] 99 mL/min/{1.73_m2} >60 [facility] Comment on above: mL/min/1.73m2 CKD-EP I Creatinine Equation (2020) Hematocrit Auto (Bld) [Volum e fraction]Ordered By: Bravo Luz on 08-07-2025 Hematocrit (Bld) [Volume fraction] 38.1 % 37-47 [facility] Hemoglobin measurementOrdere d By: Bravo Luz on 08-07-2025 Hemoglobin (Bld) [Mass/Vol] 12.5 g/dL 12.0-15.0 [facility] Immature granulocytes/100 WB C Auto (Bld)Ordered By: Bravo Luz on 08-07-2025 Immature granulocytes/100 WBC (Bld) 0.200 % 0.0-0.9 [facility] Comment on above: IG% - Immature Granu locytes (promyelocytes, myelocytes and metamyelocytes) > 1% indicates that a LEFT SHIFT is Present. Ketones Test strip Ql (U)Ord ered By: Bravo Lzu on 08-07-2025 Ketones Ql (U) 15 mg/dl High Negative [facility] - Chemistry and C hemistry - challengeOrdered By: Bravo Luz on 08-07-2025 AST [Catalytic activity/Vol] 49 U/L High <32 [facility] Lipaseon 08-07-2025 Lipase [Catalytic activity/Vol] 21 U/L Normal 13-75 [facility] Comment on above: Result Comment: Shelby reyes note: LIPASE revised reference range effective 23. New Lipase methodology. Expected to produce lower values than the previous assay method. NEW Reference Range: 13 - 75 U/L Performed By: #### L [id number] #### [facility] [address] [place], [address] Lipase measurementOrdered By : Bravo Luz on 08-07-2025 Lipase [Catalytic activity/Vol] 21 U/L 13-75 [facility] Comment on above: Please note:LIPASE r evised reference range effective 23. New Lipase methodology. Expected to produce lower values than the previous assay method. NEW Reference Range: 13 - 75 U/L MCV (mean corpuscular volume ) determinationOrdered By: Bravo Luz on 08-07-2025 MCV (RBC) [Entitic vol] 91.1 fL 81-99 [facility] Mean corpuscular hemoglobin (MCH) determinationOrdered By: Bravo Luz on 08-07-2025 MCH (RBC) [Entitic mass] 29.9 pg 27.0-32.0 [facility] Mean corpuscular hemoglobin concentration (MCHC) determinationOrdered By: Bravo Luz on 08-07-2025 MCHC (RBC) [Mass/Vol] 32.8 g/dL 32-36 [facility] Mean platelet volume determi nationOrdered By: Bravo Luz on 08-07-2025 Platelet mean volume (Bld) [Entitic vol] 12.0 fL 6.2-12.0 [facility] Microscopic analysis of urin e for red blood cells (RBC)Ordered By: Bravo Luz on 08-07-2025 Microscopic analysis of urine for red blood cells (RBC) 0 SEEN /hpf 0-5 [facility] Monocyte percentageOrdered B y: Bravo Luz on 08-07-2025 Monocytes/100 WBC (Bld) 9.2 % 0-10 [facility] Mucus LM Ql (Urine sed)Order ed By: Bravo Luz on 08-07-2025 Mucus Ql (Urine sed) 1+ /hpf [facility] Neutrophil percentageOrdered By: Bravo Luz on 08-07-2025 Neutrophils/100 WBC (Bld) 69.7 % 47-70 [facility] Nitrite Test strip Ql (U)Ord ered By: Bravo Luz on 08-07-2025 Nitrite Ql (U) Negative Negative [facility] Nucleated red blood cell per centageOrdered By: Bravo Luz on 08-07-2025 Nucleated RBC/100 WBC (Bld) [Ratio] 0 % 0-5 [facility] Platelet countOrdered By: Alex Luz on 08-07-2025 Platelets (Bld) [#/Vol] 163 10*3/uL 150-450 [facility] Potassium measurement (mass/ volume)Ordered By: Bravo Luz on 08-07-2025 Potassium (Unsp spec) [Mass/Vol] 3.4 mmol/L 3.3-5.1 [facility] Protein Test strip Ql (U)Ord ered By: Bravo Luz on 08-07-2025 Protein Ql (U) 15 mg/dl High Negative [facility] RBC Auto (Bld) [#/Vol]Ordere d By: Bravo Luz on 08-07-2025 RBC (Bld) [#/Vol] 4.18 10*6/uL Low 4.2-5.4 [facility] Serum creatinine measurement (mass/volume)Ordered By: Bravo Luz on 08-07-2025 Creatinine [Mass/Vol] 0.69 mg/dL Low 0.70-1.20 [facility] Serum globulin measurementOr dered By: Bravo Luz on 08-07-2025 Globulin (S) [Mass/Vol] 3.1 g/dL 2.2-4.2 [facility] Serum glucose measurement (m ass/volume)Ordered By: Bravo Luz on 08-07-2025 Glucose [Mass/Vol] 105 mg/dL High 70-99 [facility] Serum or plasma alanine fisher otransferase (ALT) measurementOrdered By: Bravo Luz on 08-07-2025 ALT [Catalytic activity/Vol] 55 U/L High <35 [facility] Serum or plasma albumin milena urement (mass/volume)Ordered By: Bravo Luz on 08-07-2025 Albumin [Mass/Vol] 4.2 g/dL 3.4-4.8 [facility] Serum or plasma albumin/glob ulin mass ratioOrdered By: Bravo Luz on 08-07-2025 Albumin/Globulin [Mass ratio] 1.4 {ratio} 0.9-2.4 [facility] Serum or plasma alkaline tana sphatase measurementOrdered By: Bravo Luz on 08-07-2025 ALP [Catalytic activity/Vol] 96 U/L 35-104 [facility] Serum or plasma calcium milena urement (mass/volume)Ordered By: Bravo Luz on 08-07-2025 Calcium [Mass/Vol] 9.2 mg/dL 7.6-11.0 [facility] Serum or plasma urea nitroge n measurement (mass/volume)Ordered By: Bravo Luz on 08-07-2025 Urea nitrogen [Mass/Vol] 9 mg/dL 4-19 [facility] Sodium levelOrdered By: Bravo Luz on 08-07-2025 Sodium [Moles/Vol] 142 mmol/L 133-145 [facility] Squamous epithelial cells de tection in urine sediment by light microscopyOrdered By: Bravo Luz on 08-07-2025 Epithelial cells.squamous LM Ql (Urine sed) 10-25 SEEN /hpf 5-10 [facility] Total proteinOrdered By: Felicita Luz on 08-07-2025 Protein [Mass/Vol] 7.4 g/dL 5.9-8.4 [facility] Urinalysis, Completeon 08-07 BACTERIA 2+ /hpf Normal None Seen [facility] Comment on above: Order Comment: CLEAN CATCH Performed By: #### L 400.0001 #### [facility] [address] [place], [address] Mucus Ql (Urine sed) 1+ /hpf Normal [facility] Comment on above: Order Comment: CLEAN CATCH Performed By: #### L 400.0001 #### [facility] [address] [place], [address] EPI,SQUAMOUS 10-25 SEEN Normal 5-10 [facility] Comment on above: Order Comment: CLEAN CATCH Performed By: #### L 400.0001 #### [facility] [address] [place], [address] WBC 10-25 SEEN Normal 0-5 [facility] Comment on above: Order Comment: CLEAN CATCH Performed By: #### L 400.0001 #### [facility] [address] [place], [address] RBC 0 SEEN Normal 0-5 [facility] Comment on above: Order Comment: CLEAN CATCH Performed By: #### L 400.0001 #### [facility] [address] [place], [place], [address] Urine clarityOrdered By: Felicita Luz on 08-07-2025 Clarity (U) Clear Clear [facility] Urine color determinationOrd ered By: Bravo Luz on 08-07-2025 Color (U) Yellow Yellow [facility] Urine glucose detectionOrder ed By: Bravo Luz on 08-07-2025 Glucose Ql (U) Normal mg/dl Normal [facility] Urine leukocyte esterase det ection by dipstickOrdered By: Bravo Luz on 08-07-2025 Leukocyte esterase Test strip Ql (U) 500 /ul High Negative [facility] Urine pHOrdered By: Bravo ng on 08-07-2025 pH (U) 6.0 [pH] 5.0 - 8.0 [facility] Urine sediment bacteria coun t by microscopy (number/high power field)Ordered By: Bravo Luz on 08-07-2025 Bacteria LM.HPF (Urine sed) [#/Area] 2 /[HPF] None Seen [facility] Urine specific gravity measu rementOrdered By: Bravo Luz on 08-07-2025 Specific gravity (U) [Rel density] 1.020 1.002-1.03 0 [facility] Urine urobilinogen measureme ntOrdered By: Bravo Luz on 08-07-2025 Urobilinogen Ql (U) 1 mg/dl High Normal [facility] White blood cell (WBC) count Ordered By: Bravo Luz on 08-07-2025 WBC (Bld) [#/Vol] 5.8 10*3/uL 4.4-11.0 [facility] White blood cell countOrdere d By: Bravo Luz on 08-07-2025 White blood cell count 10-25 SEEN /hpf 0-5 [facility] Office Visiton 08-02-2025 Follow-up visit [id number] Marbella Oneillrichard carson 1965 F Date Provider Department Center 08/02/2025 [id number] WOOT[facility] None Family History Problem Relation Age of Onset Obesity Mother Diabetes Mother High Blood Pressure Mother Obesity Father Diabetes Father High Blood Pressure Father Heart disease Father Stroke Father Heart disease Sister Obesity Sister Heart disease Brother High Blood Pressure Brother Family Status - Relation Status Age at Mother Alive Father Sister Alive Brother Alive Level of Service:90956 IN POSTOP FOLLOW UP VISIT RELATED TO ORIGINAL PX Reason for Visit and Comments: Bariatrics Post Op Follow-up [884] - 1m Normal [facility] Progress Noteon 08-02-2025 Progress Note HPI, PHYSICAL EXAMIN ATION & [...] 228 lb 12.8 oz (104 kg) Comment: BCC BMI 38.07 kg/m? Physical Exam Constitutional: Appearance: [...] 2 tablets by mouth daily. NYSTATIN (MYCOSTATIN) 492327 UNIT/ML SUSPENSION Take 5 mL (500,000 Units) [...] or concerns. The lab slip was signed (more content not included)... Normal [facility] Progress Note [facility] 1 MONTH POST-OPERATIVE DIETITIAN VISIT Date: 08/02/25 Surgeon: Dr. Santiago Current Medications: has a [...] hesitate to call or reach out via [employer] with any questions or concerns. Visit Completed by: Katlyn Bradford, MS, RDN, LD [facility] Breast Limited Unilateralon 07-27-2025 Breast Limited Unilateral [facility] Imaging Services [address] [place] [address] Breast Limited Unilateral MR#: [id number] Acct: [id number] Name: JAIME ONEILL Rep #: [id number] : 1965 F 59 From: Aden valderrama MD PCP: Dr. Edilberto Loza MD Status: REG CL Study: Breast Limited Unilateral Date of Exam: Exam# [id number] Ordering Dr: Edilberto Loza MD PROCEDURE: BREAST LIMITED UNILATERAL 07/27/2025 REASON FOR EXAM: F, Age 59 y/o , ABN MAMM COMPARISON: Prior mammogram dated July 23, 2025.. TECHNIQUE: Procedure Code: USBRSTLIMIT Modality: US Procedure: BREAST LIMITED UNILATERAL FINDINGS: The mammographic abnormality corresponds to a 1.1 cm x 0.7 cm by 0.5 cm well-defined hypoechoic solid nodule at the 4 o'clock position of the breast at 1 cm from the nipple. 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 Biopsy recommended. US/Breast Limited Unilateral IMPRESSION: The mammographic abnormality corresponds to a 1.1 cm x 0.7 cm x 0.5 cm well-defined hypoechoic solid nodule at the 4 o'clock position of the breast at 1 cm from the nipple. 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 Biopsy recommended. BI-RADS 4: SUSPICIOUS RECOMMENDATION: Biopsy Recommended Reading Location: [place] [address] CC: Dr. Edilberto Loza MD Garbage Truck Driver: Signed Normal [facility] Breast imaging reportOrdered By: Aden Santos on 07-26-2025 Study report [facility] Imaging Services [address] [place] [address] [id number] SCRN MAMM (CAD)W/BRIGID BILAT MR#: [id number] Acct: [id number] Name: JAIME ONEILL Rep #: [id number] : 1965 F 59 From: Amrit Santos MD PCP: Dr. Edilberto Loza MD Status: REG C LI Study:SCRN MAMM (CAD)W/BRIGID BILAT Date of Exa m: 07/23/25 Exam# [id number] Ordering Dr: Edilberto Loza MD EXAM: SCRN MAMM (CAD)W/BRIGID BILAT DATE: 07/23/2025 CLINICAL HISTORY: F, Age 59 y/o , SCREEN No family TECHNIQUE: Procedure Code: BISMWCADBTOM Modality: MG Procedure: SCRN MAMM (CAD)W/BRIGID BILAT COMPARISON: Prior exam(s) dated March 23, 2021.. FINDINGS: TISSUE DENSITY: There are scattered areas of fibroglandular density. Bilateral Breast Mammographic Findings: No significant masses, calcifications or other abnormalities are identified. Stable 7.6 mm well-defined nodule in the medial retroareolar region of the right breast. This most likely represents a small lymph node. Stable small bilateral axillary lymph nodes. No suspicious masses, areas of developing architectural distortion, or suspicious calcifications. There has been no significant interval change. BI/SCRN MAMM (CAD)W/BRIGID BILAT IMPRESSION: Stable bilateral screening mammogram. Sonographic correlation of the nodular density in the right breast recommended. OVERALL FINAL ASSESSMENT BI-RADS 0: INCOMPLETE - NEED ADDITIONAL IMAGING EVALUATION. RECOMMENDATION: Ultrasound Recommended A letter with findings and recommendations will be mailed to the patient. Reading Location: [place] [address] CC: Dr. Edilberto Loza MD ~ Garbage Truck Driver: Signed [facility] 36on 07-23-2025 36 06/30/25 LRYGB W/ MP Outside Labs [facility] 07-08-25: Elevated AST: 42 and ALT: 66 (noting pt just had surgery 8 days prior to lab draw) Elevated B12: 1798 Elevated iron: 41 Sent patient message via [employer] to assess vitamin regimen. Pending response. -sent list of low iron foods -encouraged adequate hydration for B12 Normal [facility] SCRN MAMM (CAD)W/BRIGID BILATo n 07-23-2025 SCRN MAMM (CAD)W/BRIGID BILAT [facility] Imaging Services [address] [place] [address] SCRN MAMM (CAD)W/BRIGID BILAT MR#: [id number] Acct: [id number] Name: JAIME ONEILL Rep #: [id number] : 1965 F 59 From: Aden valderrama MD PCP: Dr. Edilberto Loza MD Status: REG CLI Study: SCRN MAMM (CAD)W/BRIGID BILAT Date of Exam: 07/12 01/05 Exam# [id number] Ordering Dr: Edilberto Loza MD EXAM: SCRN MAMM (CAD)W/BRIGID BILAT DATE: 07/23/2025 CLINICAL HISTORY: F, Age 59 y/o , SCREEN No family TECHNIQUE: Procedure Code: BISMWCADBTOM Modality: MG Procedure: SCRN MAMM (CAD)W/BRIGID BILAT COMPARISON: Prior exam(s) dated March 23, 2021.. FINDINGS: TISSUE DENSITY: There are scattered areas of fibroglandular density. Bilateral Breast Mammographic Findings: No significant masses, calcifications or other abnormalities are identified. Stable 7.6 mm well- defined nodule in the medial retroareolar region of the right breast. This most likely represents a small lymph node. Stable small bilateral axillary lymph nodes. No suspicious masses, areas of developing architectural distortion, or suspicious calcifications. There has been no significant interval change. BI/SCRN MAMM (CAD)W/BRIGID BILAT IMPRESSION: Stable bilateral screening mammogram. Sonographic correlation of the nodular density in the right breast recommended. OVERALL FINAL ASSESSMENT BI-RADS 0: INCOMPLETE - NEED ADDITIONAL IMAGING EVALUATION. RECOMMENDATION: Ultrasound Recommended A letter with findings and recommendations will be mailed to the patient. Reading Location: [place] [address] CC: Dr. 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 Edilberto Loza MD Status: [facility] CLI Study: Low Dose CT Lung Screening Date of Exam: 07/17 Exam# [id number] Ordering Dr: Edilberto Loza MD PROCEDURE: LOW DOSE CT LUNG SCREENING 07/17/2025 REASON FOR EXAM: FORMER SMOKER, OTHER DISORDERS OF THE LUNG. TECHNIQUE: Procedure Code: CTLUNGSCREEN Modality: CT Procedure: LOW DOSE CT LUNG SCREENING Coronal and Sagittal reconstruction series were provided. One or more dose reduction techniques were used (e.g., Automated exposure control, adjustment of the mA and/or kV according to patient size, use of iterative reconstruction technique). REFERENCE LINK: [employer] Lung-RADS COMPARISON: CT images dated 03/22/2021. the corresponding report is not available. FINDINGS: A 6 mm slightly linear density is noted in the right lower lobe of the lungs (series 2 image 139), unchanged. The remainder of the lungs is clear. The unenhanced heart is normal in size. The unenhanced great vessels appear grossly unremarkable. No thoracic lymphadenopathy. Calcified right hilar lymph nodes. Cholecystectomy. Postsurgical changes involving the stomach are noted, probably a gastric bypass. Mild thoracic spondylosis. CT/Low Dose CT Lung Screening IMPRESSION: Lung-RADS Category: 2 BENIGN (BASED ON IMAGING FEATURES OR INDOLENT BEHAVIOR). RECOMMEND 12-MONTH SCREENING LDCT. Other Significant Findings: See above. Reading Location: [id number] CC: Dr. 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 It has not been cleared or approvedby the Food and Drug Administration. Result Comment: Dete ction Limit = 5 Performed at: [address] [id number] Land Conservation Specialist: Lou Leung MD, Phone: [phone] Performed By: #### L 692.4181 #### [facility] [address] [place], [place], [id number] Absolute lymphocyte countOrd ered By: Edilberto Loza on 07-08-2025 Lymphocytes Auto (Unsp spec) [#/Vol] 1.43 10*3/uL 0.83-4.51 [facility] Absolute neutrophil countOrd ered By: Edilberto Loza on 07-08-2025 Neutrophils (Bld) [#/Vol] 8.6 10*3/uL High 2.0-7.7 [facility] Anion gap in Serum or Plasma on 07-08-2025 Anion gap [Moles/Vol] 16 mmol/L High 5-15 [facility] Automated lymphocyte count a s percentage of total leukocytesOrdered By: Edilberto Loza on 07-08-2025 Lymphocytes/100 WBC Auto (Unsp spec) 13.0 % Low 19-41 [facility] BUN/creatinine ratioon 07-08 Urea nitrogen/Creatinine [Mass ratio] 21.2 mg/mg High 10-20 [facility] Basophil percentageOrdered B y: Edilberto Loza on 07-08-2025 Basophils/100 WBC (Bld) 0.5 % 0-1 [facility] Bilirubin, totalon Bilirubin [Mass/Vol] 0.48 mg/dL 0.00-1.30 [facility] CBC W/Diff, Automatedon 06-12 Absolute Lymph 1.43 X10 3/uL Normal 0.83-4.51 [facility] Comment on above: Order Comment: SEND COPY TO BIBIANA RAMIREZ Performed By: #### L 501.9520, L500.4100, L100.0100 #### [facility] [address] [facility] [place], [address] Absolute Neut 8.6 X10 3/uL High 2.0-7.7 [facility] Comment on above: Order Comment: SEND COPY TO BIBIANA RAMIREZ Performed By: #### L 501.9520, L500.4100, L100.0100 #### [facility] [address] [place], [address] Basophils/100 WBC (Bld) 0.5 % Normal 0-1 [facility] Comment on above: Order Comment: SEND COPY TO BIBIANA RAMIREZ Performed By: #### L 501.9520, L500.4100, L100.0100 #### [facility] [address] [place], [address] Eosinophils/100 WBC (Bld) 1.5 % Normal 0-5 [facility] Comment on above: Order Comment: SEND COPY TO BIBIANA RAMIREZ Performed By: #### L 501.9520, L500.4100, L100.0100 #### [facility] [address] [place], [address] Erythrocyte distribution width (RBC) [Ratio] 12.7 % Normal 11.6-14.6 [facility] Comment on above: Order Comment: SEND COPY TO BIBIANA RAMIREZ Performed By: #### L 501.9520, L500.4100, L100.0100 #### [facility] [address] [place], [address] Hematocrit (Bld) [Volume fraction] 39.3 % Normal 37-47 [facility] Comment on above: Order Comment: SEND COPY TO BIBIANA RAMIREZ Performed By: #### L 501.9520, L500.4100, L100.0100 #### [facility] [address] [place], [address] Hemoglobin (Bld) [Mass/Vol] 13.0 g/dL Normal 12.0-15.0 [facility] Comment on above: Order Comment: SEND COPY TO BIBIANA RAMIREZ Performed By: #### L 501.9520, L500.4100, L100.0100 #### [facility] [address] [place], [address] IG% 0.400 Normal 0.0-0.9 [facility] Comment on above: Order Comment: SEND COPY TO BIBIANA RAMIREZ Result Comment: IG% - Immature Granulocytes (promyelocytes, myelocytes and metamyelocytes) > 1% indicates that a LEFT SHIFT is Present. Performed By: #### L 501.9520, L500.4100, L100.0100 #### [facility] [address] [place], [address] Lymphocytes/100 WBC (Bld) 13.0 % Low 19-41 [facility] Comment on above: Order Comment: SEND COPY TO BIBIANA RAMIREZ Performed By: #### L 501.9520, L500.4100, L100.0100 #### [facility] [address] [place], [address] MCH (RBC) [Entitic mass] 29.5 pg Normal 27.0-32.0 [facility] Comment on above: Order Comment: SEND COPY TO BIBIANA RAMIREZ Performed By: #### L 501.9520, L500.4100, L100.0100 #### [facility] [address] [place], [address] MCHC (RBC) [Mass/Vol] 33.1 g/dL Normal 32-36 [facility] Comment on above: Order Comment: SEND COPY TO BIBIANA RAMIREZ Performed By: #### L 501.9520, L500.4100, L100.0100 #### [facility] [address] [place], [address] MCV (RBC) [Entitic vol] 89.3 fL Normal 81-99 [facility] Comment on above: Order Comment: SEND COPY TO BIBIANA RAMIREZ Performed By: #### L 501.9520, L500.4100, L100.0100 #### [facility] [address] [place], [address] Monocytes/100 WBC (Bld) 6.4 % Normal 0-10 [facility] Comment on above: Order Comment: SEND COPY TO BIBIANA RAMIREZ Performed By: #### L 501.9520, L500.4100, L100.0100 #### [facility] [address] [place], [address] Neutrophils/100 WBC (Bld) 78.2 % High 47-70 [facility] Comment on above: Order Comment: SEND COPY TO BIBIANA RAMIREZ Performed By: #### L 501.9520, L500.4100, L100.0100 #### [facility] [address] [place], [address] Nucleated RBC (Bld) [#/Vol] 0 10*3/uL Normal 0-5 [facility] Comment on above: Order Comment: SEND COPY TO BIBIANA RAMIREZ Performed By: #### L 501.9520, L500.4100, L100.0100 #### [facility] [address] [place], [address] Platelet mean volume (Bld) [Entitic vol] 11.0 fL Normal 6.2-12.0 [facility] Comment on above: Order Comment: SEND COPY TO BIBIANA RAMIREZ Performed By: #### L 501.9520, L500.4100, L100.0100 #### [facility] [address] [place], [address] Platelets (Bld) [#/Vol] 266 10*3/uL Normal 150-450 [facility] Comment on above: Order Comment: SEND COPY TO BIBIANA RAMIREZ Performed By: #### L 501.9520, L500.4100, L100.0100 #### [facility] [address] [place], [address] RBC (Bld) [#/Vol] 4.40 10*6/uL Normal 4.2-5.4 [facility] Comment on above: Order Comment: SEND COPY TO BIBIANA RAMIREZ Performed By: #### L 501.9520, L500.4100, L100.0100 #### [facility] [address] [place], [address] RDW SD 41.5 fl Normal 35.1-43.9 [facility] Comment on above: Order Comment: SEND COPY TO BIBIANA RAMIREZ Performed By: #### L 501.9520, L500.4100, L100.0100 #### [facility] [address] [place], [address] WBC (Bld) [#/Vol] 11.0 10*3/uL Normal 4.4-11.0 [facility] Comment on above: Order Comment: SEND COPY TO BIBIANA RAMIREZ Performed By: #### L 501.9520, L500.4100, L100.0100 #### [facility] [address] [place], [address] Calculated very low density lipoprotein (VLDL) cholesterol measurementOrdered By: Edilberto Loza on 07-08-2025 Calculated very low density lipoprotein (VLDL) cholesterol measurement 14 mg/dL 5-40 [facility] Carbon dioxide, total [Moles /volume] in Central venous bloodon 07-08-2025 CO2 [Moles/Vol] 22.5 mmol/L 21.0-32.0 [facility] Chloride assayon 07-08-2025 Chloride [Moles/Vol] 100 mmol/L 98-108 [facility] Comprehensive Metabolic Prof ilon 07-08-2025 Albumin [Mass/Vol] 4.4 g/dL Normal 3.4-4.8 [facility] Comment on above: Order Comment: MARLO Olivier SEND CMP TO DR. LOZA Performed By: #### L 501.5200, L503.0106, L503.6550, L503.6150, L500.4050, L3300.9900, L506.0200 #### [facility] [address] [place], [address] Albumin/Globulin [Mass ratio] 1.3 {ratio} Normal 0.9-2.4 [facility] Comment on above: Order Comment: MARLO Olivier SEND CMP TO DR. LOZA Performed By: #### L 501.5200, L503.0106, L503.6550, L503.6150, L500.4050, L3300.9900, L506.0200 #### [facility] [address] [place], [address] ALK PHOS 80 U/L Normal 35-104 [facility] Comment on above: Order Comment: MARLO Olivier SEND CMP TO DR. LOZA Performed By: #### L 501.5200, L503.0106, L503.6550, L503.6150, L500.4050, L3300.9900, L506.0200 #### [facility] [address] [facility] [place], [address] ALT [Catalytic activity/Vol] 66 U/L High <=34 [facility] Comment on above: Order Comment: MARLO Olivier SEND CMP TO DR. LOZA Performed By: #### L 501.5200, L503.0106, L503.6550, L503.6150, L500.4050, L3300.9900, L506.0200 #### [facility] [address] [place], [address] AST [Catalytic activity/Vol] 42 U/L High <=31 [facility] Comment on above: Order Comment: MARLO Olivier SEND CMP TO DR. LOZA Performed By: #### L 501.5200, L503.0106, L503.6550, L503.6150, L500.4050, L3300.9900, L506.0200 #### [facility] [address] [place], [place], [id number] ([address]) Bilirubin [Mass/Vol] 0.48 mg/dL Normal 0.00-1.30 [facility] Comment on above: Order Comment: MARLO Olivier SEND CMP TO DR. LOZA Performed By: #### L 501.5200, L503.0106, L503.6550, L503.6150, L500.4050, L3300.9900, L506.0200 #### [facility] [address] [place], [address] BUN/CRE 21.2 RATIO High 10-20 [facility] Comment on above: Order Comment: MARLO Olivier SEND CMP TO DR. LOZA Performed By: #### L 501.5200, L503.0106, L503.6550, L503.6150, L500.4050, L3300.9900, L506.0200 #### [facility] [address] [place], [address] Calcium [Mass/Vol] 9.3 mg/dL Normal 7.6-11.0 [facility] Comment on above: Order Comment: MARLO Olivier SEND CMP TO DR. LOZA Performed By: #### L 501.5200, L503.0106, L503.6550, L503.6150, L500.4050, L3300.9900, L506.0200 #### [facility] [address] [place], [address] Chloride [Moles/Vol] 100 mmol/L Normal 98-108 [facility] Comment on above: Order Comment: MARLO Olivier SEND CMP TO DR. LOZA Performed By: #### L 501.5200, L503.0106, L503.6550, L503.6150, L500.4050, L3300.9900, L506.0200 #### [facility] [address] [place], [address] CO2 [Moles/Vol] 22.5 mmol/L Normal 21.0-32.0 [facility] Comment on above: Order Comment: MARLO Olivier SEND CMP TO DR. LOZA Performed By: #### L 501.5200, L503.0106, L503.6550, L503.6150, L500.4050, L3300.9900, L506.0200 #### [facility] [address] [place], [place], [id number] Creatinine [Mass/Vol] 0.71 mg/dL Normal 0.70-1.20 [facility] Comment on above: Order Comment: MARLO Olivier SEND CMP TO DR. LOZA Performed By: #### L 501.5200, L503.0106, L503.6550, L503.6150, L500.4050, L3300.9900, L506.0200 #### [facility] [address] [place], [address] GAP 16 High 5-15 [facility] Comment on above: Order Comment: MARLO Olivier SEND CMP TO DR. LOZA Performed By: #### L 501.5200, L503.0106, L503.6550, L503.6150, L500.4050, L3300.9900, L506.0200 #### [facility] [address] [place], [place], [id number] GFR/1.73 sq M.predicted among non-blacks MDRD (S/P/Bld) [Vol rate/Area] 96 mL/min/{1.73_m2} Normal >60 [facility] Comment on above: Order Comment: MARLO Olivier SEND CMP TO DR. LOZA Result Comment: mL/m in/1.73m2 CKD-EPI Creatinine Equation (2020) Performed By: #### L 501.5200, L503.0106, L503.6550, L503.6150, L500.4050, L3300.9900, L506.0200 #### [facility] [address] [place], [address] Globulin (S) [Mass/Vol] 3.3 g/dL Normal 2.2-4.2 [facility] Comment on above: Order Comment: MARLO Olivier SEND CMP TO DR. LOZA Performed By: #### L 501.5200, L503.0106, L503.6550, L503.6150, L500.4050, L3300.9900, L506.0200 #### [facility] [address] [place], [address] Glucose [Mass/Vol] 82 mg/dL Normal 70-99 [facility] Comment on above: Order Comment: MARLO Olivier SEND CMP TO DR. LOZA Performed By: #### L 501.5200, L503.0106, L503.6550, L503.6150, L500.4050, L3300.9900, L506.0200 #### [facility] [address] [place], [address] Potassium [Moles/Vol] 3.7 mmol/L Normal 3.3-5.1 [facility] Comment on above: Order Comment: MARLO Olivier SEND CMP TO DR. LOZA Performed By: #### L 501.5200, L503.0106, L503.6550, L503.6150, L500.4050, L3300.9900, L506.0200 #### [facility] [address] [place], [address] Sodium [Moles/Vol] 138 mmol/L Normal 133-145 [facility] Comment on above: Order Comment: MARLO Olivier SEND CMP TO DR. LOZA Performed By: #### L 501.5200, L503.0106, L503.6550, L503.6150, L500.4050, L3300.9900, L506.0200 #### [facility] [address] [place], [address] T PROT 7.7 g/dL Normal 5.9-8.4 [facility] Comment on above: Order Comment: MARLO Olivier SEND CMP TO DR. LOZA Performed By: #### L 501.5200, L503.0106, L503.6550, L503.6150, L500.4050, L3300.9900, L506.0200 #### [facility] [address] [place], [address] Urea nitrogen [Mass/Vol] 15 mg/dL Normal 4-19 [facility] Comment on above: Order Comment: MARLO Olivier SEND CMP TO DR. LOZA Performed By: #### L 501.5200, L503.0106, L503.6550, L503.6150, L500.4050, L3300.9900, L506.0200 #### [facility] [address] [place], [place], [id number] ([address]) Eosinophil percentageOrdered By: Edilberto Loza on 07-08-2025 Eosinophils/100 WBC (Bld) 1.5 % 0-5 [facility] Erythrocyte distribution wid th ratioOrdered By: Edilberto Loza on 07-08-2025 Erythrocyte distribution width (RBC) [Ratio] 12.7 % 11.6-14.6 [facility] Erythrocyte distribution wid th standard deviationOrdered By: Edilberto Loza on 07-08-2025 Erythrocyte distribution width (RBC) [Ratio] 41.5 fl 35.1-43.9 [facility] Ferritinon 07-08-2025 Ferritin [Mass/Vol] 189 ng/mL Normal 22-378 [facility] Comment on above: Order Comment: MARLO Olivier SEND CMP TO DR. LOZA Performed By: #### L 500.4050 #### [facility] [address] [place], [place], [id number] Folate [Mass/volume] in Seru m or Plasmaon 07-08-2025 Folate [Mass/Vol] 33.70 ng/mL 4.60-34.80 [facility] Folates,Serum (Folic Acid)on 07-08-2025 FOLATES,SERUM 33.70 ng/mL Normal 4.60-34.80 [facility] Comment on above: Order Comment: MARLO Olivier SEND CMP TO DR. DODD Performed By: #### L 500.4050 #### [facility] [address] [place], [place], [address] Glomerular filtration rate ( GFR) estimation/1.73 sq m using serum, plasma, or whole bon 07-08-2025 GFR/1.73 sq M.predicted among non-blacks MDRD (S/P/Bld) [Vol rate/Area] 96 mL/min/{1.73_m2} >60 [facility] Comment on above: mL/min/1.73m2 CKD-EP I Creatinine Equation (2020) Hematocrit Auto (Bld) [Volum e fraction]Ordered By: Edilberto Loza on 07-08-2025 Hematocrit (Bld) [Volume fraction] 39.3 % 37-47 [facility] Hemoglobin measurementOrdere d By: Edilberto Loza on 07-08-2025 Hemoglobin (Bld) [Mass/Vol] 13.0 g/dL 12.0-15.0 [facility] Immature granulocytes/100 WB C Auto (Bld)Ordered By: Edilberto Loza on 07-08-2025 Immature granulocytes/100 WBC (Bld) 0.400 % 0.0-0.9 [facility] Comment on above: IG% - Immature Granu locytes (promyelocytes, myelocytes and metamyelocytes) > 1% indicates that a LEFT SHIFT is Present. Ironon 07-08-2025 Iron [Mass/Vol] 41 ug/dL Low 50-170 [facility] Comment on above: Order Comment: MARLO Olivier SEND CMP TO DR. LOZA Performed By: #### L 500.405 #### [facility] [place], [address] Iron measurement (mass/mass) on 07-08-2025 Iron (Unsp spec) [Mass/Mass] 41 ug/dL Low 50-170 [facility] LDL calc ser/plasOrdered By: Edilberto Loza on 07-08-2025 Cholesterol in LDL [Mass/Vol] 112 mg/dL [facility] Comment on above: Bwnjfgvrgi=213-826 m g/dL & Higher Xhqq=693 mg/dL or greaterFriedwald Equation for LDL-C Laboratory - Chemistry and C hemistry - challengeon 07-08-2025 AST [Catalytic activity/Vol] 42 U/L High <32 [facility] Lipid Profileon 07-08-2025 CHOL:HDL 3.09 Normal [facility] Comment on above: Performed By: #### L 501.9578, L500.4100, L100.0100 #### [facility] [address] [place], [address] Cholesterol [Mass/Vol] 185 mg/dL Normal <=200 [facility] Comment on above: Result Comment: Chol esterol level, Desirable <200 mg/dL Borderline high cholesterol 200-239 mg/dL High cholesterol >=240 mg/dL Recommendations of the NCEP Adult Treatment Panel for the following risk-cutoff thresholds for the [place] population. Performed By: #### L 501.9520, L500.4100, L100.0100 #### [facility] [address] [place], [address] Cholesterol in HDL [Mass/Vol] 60 mg/dL Normal [facility] Comment on above: Result Comment: Maddy onal Cholesterol Education Program (NCEP) guidelines: <40 mg/dL: Low HDL-cholesterol (major risk factor for CHD) >= 60 mg/dL: High HDL-cholesterol (negative risk factor for CHD) HDL-cholesterol is affected by a number of factors, e.g. smoking, exercise, hormones, sex and age. Performed By: #### L 501.9520, L500.4100, L100.0100 #### [facility] [address] [place], [address] Cholesterol in LDL [Mass/Vol] 112 mg/dL Normal [facility] Comment on above: Result Comment: Bord rhgowd=034-804 mg/dL Higher Djbr=626 mg/dL or greater Friedwald Equation for LDL-C Performed By: #### L 501.9520, L500.4100, L100.0100 #### [facility] [address] [place], [address] Cholesterol in VLDL [Mass/Vol] 14 mg/dL Normal 5-40 [facility] Comment on above: Performed By: #### L 501.9520, L500.4100, L100.0100 #### [facility] [address] [place], [address] Triglyceride [Mass/Vol] 68 mg/dL Normal [facility] Comment on above: Result Comment: The drugs N-Acetylcysteine and Metamizole may falsely depress this assay. Normal range: <150 mg/dL Borderline High: 150-199 mg/dL High: 200-499 mg/dL Very High: >500 mg/dL Performed By: #### L 501.9520, L500.4100, L100.0100 #### [facility] [address] [place], [place], [address] MCV (mean corpuscular volume ) determinationOrdered By: Edilberto Loza on 07-08-2025 MCV (RBC) [Entitic vol] 89.3 fL 81-99 [facility] Magnesiumon 07-08-2025 Magnesium [Mass/Vol] 1.9 mg/dL Normal 1.5-2.2 [facility] Comment on above: Order Comment: PLEMONIKA E SEND CMP TO DR. LOZA Performed By: #### L 500.4058 #### [facility] [address] [facility] [place], [place], [address] Magnesium measurement (mass/ volume)on 07-08-2025 Magnesium (Unsp spec) [Mass/Vol] 1.9 mg/dL 1.5-2.2 [facility] Mean corpuscular hemoglobin (MCH) determinationOrdered By: Edilberto Loza on 07-08-2025 MCH (RBC) [Entitic mass] 29.5 pg 27.0-32.0 [facility] Mean corpuscular hemoglobin concentration (MCHC) determinationOrdered By: Edilberto Loza on 07-08-2025 MCHC (RBC) [Mass/Vol] 33.1 g/dL 32-36 [facility] Mean platelet volume determi nationOrdered By: Edilberto Loza on 07-08-2025 Platelet mean volume (Bld) [Entitic vol] 11.0 fL 6.2-12.0 [facility] Monocyte percentageOrdered B y: Edilberto Loza on 07-08-2025 Monocytes/100 WBC (Bld) 6.4 % 0-10 [facility] Neutrophil percentageOrdered By: Edilberto Loza on 07-08-2025 Neutrophils/100 WBC (Bld) 78.2 % High 47-70 [facility] Nucleated red blood cell per centageOrdered By: Edilberto Loza on 07-08-2025 Nucleated RBC/100 WBC (Bld) [Ratio] 0 % 0-5 [facility] Platelet countOrdered By: Ricardo Loza on 07-08-2025 Platelets (Bld) [#/Vol] 266 10*3/uL 150-450 [facility] Potassium measurement (mass/ volume)on 07-08-2025 Potassium (Unsp spec) [Mass/Vol] 3.7 mmol/L 3.3-5.1 [facility] RBC Auto (Bld) [#/Vol]Ordere d By: Edilberto Loza on 07-08-2025 RBC (Bld) [#/Vol] 4.40 10*6/uL 4.2-5.4 [facility] Screening total cholesterol/ high density lipoprotein (HDL) cholesterol ratioOrdered By: Edilberto Loza on 07-08-2025 Cholesterol.total/Chol esterol in HDL [Mass ratio] 3.09 {ratio} [facility] Serum creatinine measurement (mass/volume)on 07-08-2025 Creatinine [Mass/Vol] 0.71 mg/dL 0.70-1.20 [facility] Serum globulin measurementon 07-08-2025 Globulin (S) [Mass/Vol] 3.3 g/dL 2.2-4.2 [facility] Serum glucose measurement (m ass/volume)on 07-08-2025 Glucose [Mass/Vol] 82 mg/dL 70-99 [facility] Serum or plasma alanine fisher otransferase (ALT) measurementon 07-08-2025 ALT [Catalytic activity/Vol] 66 U/L High <35 [facility] Serum or plasma albumin milena urement (mass/volume)on 07-08-2025 Albumin [Mass/Vol] 4.4 g/dL 3.4-4.8 [facility] Serum or plasma albumin/glob ulin mass ratioon 07-08-2025 Albumin/Globulin [Mass ratio] 1.3 {ratio} 0.9-2.4 [facility] Serum or plasma alkaline tana sphatase measurementon 07-08-2025 ALP [Catalytic activity/Vol] 80 U/L 35-104 [facility] Serum or plasma calcium milena urement (mass/volume)on 07-08-2025 Calcium [Mass/Vol] 9.3 mg/dL 7.6-11.0 [facility] Serum or plasma cholesterol in HDL measurement (mass/volume)Ordered By: Edilberto Loza on 07-08-2025 Cholesterol in HDL [Mass/Vol] 60 mg/dL >40 [facility] Comment on above: National Cholesterol Education Program (NCEP) guidelines:<40 mg/dL: Low HDL-cholesterol (major risk factor for CHD)>= 60 mg/dL: High HDL-cholesterol (negative risk factor for CHD)HDL-cholesterol is affected by a number of factors, e.g. smoking, exercise, hormones, sex and age. Serum or plasma cholesterol measurement (mass/volume)Ordered By: Edilberto Loza on 07-08-2025 Cholesterol [Mass/Vol] 185 mg/dL <201 [facility] Comment on above: Cholesterol level, D esirable <200 mg/dLBorderline high cholesterol 200-239 mg/dLHigh cholesterol >=240 mg/dLRecommendations of the NCEP Adult Treatment Panel for the following risk-cutoff thresholds for the [place] population. Serum or plasma ferritin craig surement (mass/volume)on 07-08-2025 Ferritin [Mass/Vol] 189 ng/mL 22-378 [facility] Serum or plasma urea nitroge n measurement (mass/volume)on 07-08-2025 Urea nitrogen [Mass/Vol] 15 mg/dL 4-19 [facility] Serum or plasma zinc measure ment (mass/volume)on 07-08-2025 Zinc [Mass/Vol] 79 ug/dL 44-115 [facility] Comment on above: Detection Limit = 5P erformed at: BN - [facility] [address] [id number] Director: Lou Leung MD, Phone: [phone] Sodium levelon 07-08-2025 Sodium [Moles/Vol] 138 mmol/L 133-145 [facility] TSH DL <= 0.005 mIU/L QnOrde red By: Edilberto Loza on 07-08-2025 TSH Qn 3.310 uIU/mL 0.300-4.20 0 [facility] Thyroid Stim Hormone (TSH)on 07-08-2025 TSH 3.310 uIU/mL Normal 0.300-4.20 0 [facility] Comment on above: Performed By: #### L 501.9520, L500.4100, L100.0100 #### [facility] [address] [place], [place], [address] Total proteinon 07-08-2025 Protein [Mass/Vol] 7.7 g/dL 5.9-8.4 [facility] Triglycerides measurementOrd ered By: Edilberto Loza on 07-08-2025 Triglyceride [Mass/Vol] 68 mg/dL <199 [facility] Comment on above: The drugs N-Acetylcy steine and Metamizole may falsely depress this assay. Normal range: <150 mg/dLBorderline High: 150-199 mg/dLHigh: 200-499 mg/dLVery High: >500 mg/dL Vitamin B12on 07-08-2025 Cobalamin (Vitamin B12) [Mass/Vol] 1798 pg/mL High 180-914 [facility] Comment on above: Order Comment: PLEAS E SEND CMP TO DR. LOZA Performed By: #### L 500.4050 #### [facility] [address] [place], [place], [address] Vitamin B12 ser/plason 07-08 Cobalamin (Vitamin B12) [Mass/Vol] 1798 pg/mL High 180-914 [facility] White blood cell (WBC) count Ordered By: Edilberto Loza on 07-08-2025 WBC (Bld) [#/Vol] 11.0 10*3/uL 4.4-11.0 [facility] 36on 07-06-2025 36 06/30/25 LRYGB W/ [...] as no contact info left. Will send juan to pt that she is able to drive now as long as she is can do so without pain and is no longer taking narcotics. Normal [facility] Office Visiton 07-05-2025 Follow-up visit [id number] González Oneill 1965 F Date Provider Department Center 07/05/2025 [id number] SANTIAGO [facility] None Family History Problem Relation Age of Onset Obesity Mother Diabetes Mother High Blood Pressure Mother Obesity Father Diabetes Father High Blood Pressure Father Heart disease Father Stroke Father Heart disease Sister Obesity Sister Heart disease Brother High Blood Pressure Brother Family Status - Relation Status Age at Mother Alive Father Sister Alive Brother Alive Level of Service:48560 IN POSTOP FOLLOW UP VISIT RELATED TO ORIGINAL PX Reason for Visit and Comments: Bariatrics Post Op Follow-up [884] - 1wk Normal [facility] Progress Noteon 07-05-2025 Progress Note HPI, PHYSICAL [...] water until 1 month office visit. 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 Patient [...] Req. Please send results to: MD Saurabh CORTES[address] [address] - [phone] And if not done at a [facility] Facility, please send to: [place] [address] Patient Name: Jaime Oneill - 1965 Order Created by : Doreen Neely MA Standing Status: Future Number of Occurrences: 1 Expected Date: 07/14/2025 Expiration Date: 06/30/2026 Folate These orders are set for an approximate date - they can be drawn up to 3 months prior to the Expected Date on this Req. Please send results to: MD Saurabh CORTES [address] [id number] - [phone] And if not done at a [facility] Facility, please send to: [place] [address] Patient Name: Jaime Oneill - 1965 Order Created by : Doreen Neely MA Standing Status: Future Number of Occurrences: 1 Expected Date: 07/14/2025 Expiration Date: 06/30/2026 Iron These orders are set for an approximate date - they can be drawn up to 3 months prior to the Expected Date on this Req. Please send results to: MD Saurabh CORTES [address] [address] - [phone] And if not done at a [facility] Facility, please send to: [facility] - [address] [place] [address], [address] Patient Name: Jaime Oneill - 1965 Order [...] MD - [address] [place] [address] [facility] [id number] - [phone] And if not done at a [facility] Facility, please send to: [address], [facility] Patient Name: Jaime Wiley 1965 Order [...] MD - [address] [place] [address] [facility] [id number] - [phone] And if not done at a [facility] Facility, please send to: [address], [address] Patient Name: Jaime Oneill - 1965 Order Created by : Doreen Neely MA Standing Status: Future Number of Occurrences: 1 Expected Date: 07/14/2025 Expiration Date: 06/30/2026 Vitamin B12 These orders are set for an approximate date - they can be (more content not included)... Normal [facility] Progress Note [facility] 1 WEEK VISIT POST-OPERATIVE DIETITIAN Date: 07/05/25 [...] questions or concerns. Visited completed by: Katlyn Bradford, MS, RDN, LD [facility] 36on 07-02-2025 36 Attempted to call maura palmer for follow up to inpatient hospital stay. Left voice mail with my direct number and request for return call. [facility] BASIC METABOLIC PANELon 08 Anion gap [Moles/Vol] 6 mmol/L Normal 3-13 [facility] Comment on above: Performed By: #### L AB15 ####Director Case: ELMA ROQUE ([id number])[facility] ([facility])[address] [place] [address] Calcium [Mass/Vol] 8.6 mg/dL Low 8.8-10.0 [facility] Comment on above: Performed By: #### L AB15 ####Director Case: ELMA ROQUE ([id number])[facility] ([facility])[address] [place] [address] Chloride [Moles/Vol] 104 mmol/L Normal 98-107 [facility] Comment on above: Performed By: #### L AB15 ####Director Case: ELMA ROQUE ([id number])[facility])[address] [place] [address] CO2 [Moles/Vol] 23 mmol/L Normal 23-31 [facility] Comment on above: Performed By: #### L AB15 ####Director Case: ELMA ROQUE ([id number])[facility] ([facility])[address] [place] [address] Creatinine [Mass/Vol] 0.71 mg/dL Normal 0.57-1.11 [facility] Comment on above: Performed By: #### L AB15 ####Director Case: ELMA ROQUE ([id number])[facility])[address] [place] [address] GLOMERULAR FILTRATION RATE ML/MIN/1.73 SQ M.PREDICTED >90.0 Normal >60.0 [facility] Comment on above: Result Comment: Calc ulation based on the Chronic Kidney Disease Epidemiology Collaboration (CKD-EPI) equation refit without adjustment for race Performed By: #### L AB15 ####Director Case: ELMA ROQUE ([id number])[facility] ([facility])[address] [place] [address] [place] Glucose [Mass/Vol] 154 mg/dL High 82-115 [facility] Comment on above: Performed By: #### L AB15 ####Director Case: ELMA ROQUE ([id number])[facility] ([facility])[address] [place] [address] Potassium [Moles/Vol] 4.0 mmol/L Normal 3.5-5.1 [facility] Comment on above: Result Comment: [facility] potassium values may be up to 0.5 mmol/L lower than serum values. Performed By: #### L AB15 ####Director Case: ELMA ROQUE ([id number])[facility])[address] [place] [address] Sodium [Moles/Vol] 133 mmol/L Low 136-145 [facility] Comment on above: Performed By: #### L AB15 ####Director Case: ELMA ROQUE ([id number])[address] Urea nitrogen [Mass/Vol] 20 mg/dL Normal 9-23 [facility] Comment on above: Performed By: #### L AB15 ####Director Case: ELMA ROQUE ([id number])[facility])[address] [place] [address] Basic metabolic 1998 panelon 07-01-2025 Anion gap [Moles/Vol] 6 mmol/L 3 - 13 mmol/L [facility] Calcium [Mass/Vol] 8.6 mg/dL Low 8.8 - 10. 0 mg/dL [facility] Chloride [Moles/Vol] 104 mmol/L 98 - 10 7 mmol/L [facility] CO2 [Moles/Vol] 23 mmol/L 23 - 31 mmol/L [facility] Creatinine [Mass/Vol] 0.71 mg/dL 0.57 - 1.11 mg/dL [facility] GFR/1.73 sq M.predicted (S/P/Bld) [Vol rate/Area] - PINF [facility] Comment on above: Calculation based on the Chronic Kidney Disease Epidemiology Collaboration (CKD-EPI) equation refit without adjustment for race Glucose [Mass/Vol] 154 mg/dL High 82 - 115 mg/dL [facility] Interpretation and review of laboratory results Abnormal [facility] Potassium [Moles/Vol] 4 mmol/L 3.5 - 5.1 mmol/L [facility] Comment on above: Plasma potassium adri ues may be up to 0.5 mmol/L lower than serum values. Sodium [Moles/Vol] 133 mmol/L Low 136 - 145 mmol/L [facility] Urea nitrogen [Mass/Vol] 20 mg/dL 9 - 23 mg/dL [facility] CBC (HEMOGRAM)on 07-01-2025 Erythrocyte distribution width (RBC) [Ratio] 13.1 % Normal 11.5-15.0 [facility] Comment on above: Performed By: #### L AB294 ####Director Case: ELMA ROQUE ([id number])[address] Hematocrit (Bld) [Volume fraction] 36.8 % Normal 35.0-47.0 [facility] Comment on above: Performed By: #### L AB294 ####Director Case: ELMA ROQUE ([id number])[address] Hemoglobin (Bld) [Mass/Vol] 12.0 g/dL Normal 11.7-16.0 [facility] Comment on above: Performed By: #### L AB294 ####Director Case: ELMA ROQUE ([id number])[address] MCH (RBC) [Entitic mass] 29.6 pg Normal 26.0-34.0 [facility] Comment on above: Performed By: #### L AB294 ####Director Case: ELMA ROQUE ([id number])[address] MCHC 32.6 % Normal 30.5-36.0 [facility] Comment on above: Performed By: #### L AB294 ####Director Case: ELMA ROQUE ([id number])[address] MCV (RBC) [Entitic vol] 90.6 fL Normal 77.0-99.0 [facility] Comment on above: Performed By: #### L AB294 ####Director Case: ELMA ROQUE ([id number])[facility] ([facility])[address] [place] [address] Platelet mean volume (Bld) [Entitic vol] 10.9 fL Normal 9.0-12.7 [facility] Comment on above: Performed By: #### L AB294 ####Director Case: ELMA ROQUE ([id number])[facility] ([facility])[address] [place] [address] Platelets (Bld) [#/Vol] 245 10*3/uL Normal 140-440 [facility] Comment on above: Performed By: #### L AB294 ####Director Case: ELMA ROQUE ([id number])[facility] ([facility])[address] [place] [address] RBC (Bld) [#/Vol] 4.06 10*6/uL Normal 3.80-5.20 [facility] Comment on above: Performed By: #### L AB294 ####Director Case: ELMA ROQUE ([id number])[facility] ([facility])[address] [place] [address] WBC (Bld) [#/Vol] 10.7 10*3/uL Normal 3.6-10.7 [facility] Comment on above: Performed By: #### L AB294 ####Director Case: ELMA ROQUE ([id number])[facility] ([facility])[address] [place] [address] CBC panel Auto (Bld)on 07-01 Erythrocyte distribution width (RBC) [Ratio] 13.1 % 11.5 - 15.0 % [facility] Hematocrit (Bld) [Volume fraction] 36.8 % 35.0 - 47.0 % [facility] Hemoglobin (Bld) [Mass/Vol] 12 g/dL 11.7 - 16.0 g/dL [facility] Interpretation and review of laboratory results Normal [facility] MCH (RBC) [Entitic mass] 29.6 pg 26.0 - 34.0 pg [facility] MCHC (RBC) [Mass/Vol] 32.6 % 30.5 - 36.0 % [facility] MCV (RBC) [Entitic vol] 90.6 fL 77.0 - 99.0 fL [facility] Platelet mean volume (Bld) [Entitic vol] 10.9 fL 9.0 - 12.7 fL [facility] Platelets (Bld) [#/Vol] 245 10*3/uL 140 - 440 10*3/uL [facility] RBC (Bld) [#/Vol] 4.06 10*6/uL 3.80 - 5.20 10*6/uL [facility] WBC (Bld) [#/Vol] 10.7 10*3/uL 3.6 - 10.7 10*3/uL [facility] - Coagulationon 0 07-01-2025 PT Coag (Bld) [Time] 10.5 s 9.0 - 1 2.0 s [facility] PROTHROMBIN TIMEon INR Coag (PPP) [Relative time] 1.0 {INR} Normal 0.9-1.1 [facility] Comment on above: Order Comment: If pa [...] to prevent Myocardial Infarction Performed By: #### L AB320 #### Director Case: ELMA ROQUE ([id number]) [facility] ([facility]) [address] [place] [address] PT Coag (PPP) [Time] 10.5 s Normal 9.0-12.0 [facility] [employer] [facility] Comment on above: Order Comment: If pa tient on coumadin within 4 days prior. Performed By: #### L AB320 #### Director Case: ELMA ROQUE ([id number]) [facility] [address] [place] [address] PT Coag (Bld) [Time]on 07-01 INR Coag (PPP) [Relative time] 1 {INR} 0.9 - 1.1 [facility] Comment on above: Recommended Anticoag ulant Therapy: [...] Interpretation and review of laboratory results Normal [facility] Progress Noteon 07-01-2025 Progress Note Negative Normal [facility] Progress Note ------- Attestation signed by Jordon Santiago DO at 07/23/2025 4:03 PM Doing well day 1 from Operation: Laparoscopic Diana-en-Y gastric bypass procedure No events overnight Vitals OK Ugi this am Advance diet Wounds ok Dvt prophyaxis Dc planning when stable. [facility] Patient Name: Jaime Oneill Date: 07/01/25 MIS-General [...] sodium chloride 0.9% [4] No Known Allergies Normal [facility] XR Abdomen and RF Gastrointe stinal tract upper W contrast Dane 07-01-2025 No convincing evidence of extravasation or obstruction. Post-op changes consistent with Diana-en-Y gastric bypass surgery. Report Dictated on Electronically Signed By: Nicholas Jolly MD Electronically Signed Date/Time: 07/01/2025 10:35 AM EDT [facility] Patient Name: JAIME ONEILL : 1965 Exam Date/Time: 07/01/2025 07:35 Procedure: FL UPPER GI WITH KUB Ordering Provider: BECKER HEATHER Reason For Exam: s/p diana en [...] no convincing evidence of extravasation or obstruction. [facility] Nicholas Jolly MD - 07/01/2025 Patient Name: JAIME ONEILL : 1965 Exam Date/Time: 07/01/2025 07:35 Procedure: FL UPPER GI WITH KUB Ordering Provider: BECKER HEATHER Reason For Exam: s/p diana en [...] Electronically Signed Date/Time: 07/01/2025 10:35 AM EDT [facility] [employer] Radiology Study observation (narrative) [facility] [employer] XR Abdomen and RF Gastrointe stinal tract upper W contrast POOrdered By: Nicholas Jolly on 07-01-2025 [facility] [employer] Work Phone: BASIC METABOLIC PANELon 082 Anion gap [Moles/Vol] 14 mmol/L High 3-13 [facility] Comment on above: Performed By: #### L AB15 ####Director Case: ELMA ROQUE ([id number])[facility])[address] [place] [address] Calcium [Mass/Vol] 8.7 mg/dL Low 8.8-10.0 [facility] Comment on above: Performed By: #### L AB15 ####Director Case: ELMA ROQUE ([id number])[facility] ([facility])[address] [place] [address] Chloride [Moles/Vol] 101 mmol/L Normal 98-107 [facility] Comment on above: Performed By: #### L AB15 ####Director Case: ELMA ROQUE ([id number])[facility] ([facility])[address] [place] [address] CO2 [Moles/Vol] 24 mmol/L Normal 23-31 [facility] Comment on above: Performed By: #### L AB15 ####Director Case: ELMA ROQUE ([id number])[facility])[address] [place] [address] Creatinine [Mass/Vol] 0.82 mg/dL Normal 0.57-1.11 [facility] Comment on above: Performed By: #### L AB15 ####Director Case: ELMA ROQUE ([id number])[facility])[address] [place] [address] GLOMERULAR FILTRATION RATE ML/MIN/1.73 SQ M.PREDICTED 81.5 mL/min/1.73m*2 Normal >60.0 [facility] Comment on above: Result Comment: Calc ulation based on the Chronic Kidney Disease Epidemiology Collaboration (CKD-EPI) equation refit without adjustment for race Performed By: #### L AB15 ####Director Case: ELMA ROQUE ([id number])[facility] ([facility])[address] [place] [address] [place] Glucose [Mass/Vol] 182 mg/dL High 82-115 [facility] Comment on above: Performed By: #### L AB15 ####Director Case: ELMA ROQUE ([id number])[facility])[address] [place] [address] Potassium [Moles/Vol] 3.4 mmol/L Low 3.5-5.1 [facility] Comment on above: Result Comment: [facility] potassium values may be up to 0.5 mmol/L lower than serum values. Performed By: #### L AB15 ####Director Case: ELMA ROQUE ([id number])[facility])[address] [place] [address] Sodium [Moles/Vol] 139 mmol/L Normal 136-145 [facility] Comment on above: Performed By: #### L AB15 ####Director Case: ELMA ROQUE ([id number])[facility] ([facility])[address] [place] [address] Urea nitrogen [Mass/Vol] 18 mg/dL Normal 9-23 [facility] Comment on above: Performed By: #### L AB15 ####Director Case: ELMA ROQUE ([id number])[facility])[address] [place] [address] Basic metabolic 1998 panelon 06-30-2025 Anion gap [Moles/Vol] 14 mmol/L High 3 - 13 mmol/L [facility] Calcium [Mass/Vol] 8.7 mg/dL Low 8.8 - 10. 0 mg/dL [facility] Chloride [Moles/Vol] 101 mmol/L 98 - 10 7 mmol/L [facility] CO2 [Moles/Vol] 24 mmol/L 23 - 31 mmol/L [facility] Creatinine [Mass/Vol] 0.82 mg/dL 0.57 - 1.11 mg/dL [facility] GFR/1.73 sq M.predicted (S/P/Bld) [Vol rate/Area] 81.5 mL/min - PINF [facility] Comment on above: Calculation based on the Chronic Kidney Disease Epidemiology Collaboration (CKD-EPI) equation refit without adjustment for race Glucose [Mass/Vol] 182 mg/dL High 82 - 115 mg/dL [facility] Interpretation and review of laboratory results Abnormal [facility] Potassium [Moles/Vol] 3.4 mmol/L Low 3.5 - 5.1 mmol/L [facility] Comment on above: Plasma potassium adri ues may be up to 0.5 mmol/L lower than serum values. Sodium [Moles/Vol] 139 mmol/L 136 - 145 mmol/L [facility] Urea nitrogen [Mass/Vol] 18 mg/dL 9 - 23 mg/dL [facility] HEMOGLOBIN AND HEMATOCRIT, B LOODon 06-30-2025 Hematocrit (Bld) [Volume fraction] 40.6 % Normal 35.0-47.0 [facility] Comment on above: Performed By: #### L AB753 ####Director Case: ELMA ROQUE ([id number])[facility] ([facility])[address] [place] [address] [place] Hemoglobin (Bld) [Mass/Vol] 13.0 g/dL Normal 11.7-16.0 [facility] Comment on above: Performed By: #### L AB753 ####Director Case: ELMA ROQUE ([id number])[facility] ([facility])[address] [place] [address] Hemoglobin (Bld) [Mass/Vol]o n 06-30-2025 Hematocrit (Bld) [Volume fraction] 40.6 % 35.0 - 47.0 % [facility] Interpretation and review of laboratory results Normal [facility] - Hematology and Cell countson 06-30-2025 Hemoglobin (Bld) [Mass/Vol] 13 g/dL 11.7 - 16.0 g/dL [facility] Nursing Noteon 06-30-2025 Nursing Note Virtual Admission completed. Patient instructed to use call light to call for assistance if needed. Normal [facility] Nursing Note Report called to Augustine dorado RN on H6. Pt's family updated. Normal [facility] Nursing Note Patients daughter Ap ril updated via phone Normal [facility] Op Noteon 06-30-2025 Op Note Patient: Jaime ortiz Date of : 1965 Service Date: 06/30/25 PROCEDURE: Laparoscopic Diana-en-Y Gastric Bypass Laparoscopic Liver Biopsy Esophagogastrojejunoscopy Laparoscopic hiatal hernia PREOPERATIVE DIAGNOSES: Problem List[1] POSTOPERATIVE DIAGNOSES: same ANESTHESIA: General SURGEON: DR. Jordon Santiago RN CARDIOVASCULAR ICU: Dr. Becker was asked to help with [...] informed consent discussion was held between Dr. Santiago and the patient. Viable alternatives to the [...] the small bowel mesentery and the small bow (more content not included)... [facility] [id number] 06-22-2025 [id number] Medication List Accurate as of June 22, [...] instructions given to you by Dr. SANTIAGO Showbharath with an antibacterial soap such as Dial [...] your scheduled surgery time. Please bring your [facility] Surgical folder and medication list with you day of surgery. We encourage you to write down any questions you may have for the surgeon, anesthesiologist, or other members of the surgical team and bring it with you the day of surgery. Please bring photo ID and insurance information. [facility] ALBUMINon 08-12-2025 Albumin [Mass/Vol] 4.0 g/dL Normal 3.4-4.8 [facility] Comment on above: Performed By: #### L AB320 #### Director Case: ELMA ROQUE ([id number]) [facility] ([facility]) [address] [place] [address] BASIC METABOLIC PANELon 06-11 Anion gap [Moles/Vol] 6 mmol/L Normal 3-13 [facility] Comment on above: Performed By: #### L AB320 #### Director Case: ELMA ROQUE ([id number]) [facility] ([facility]) [address] [place] [address] Calcium [Mass/Vol] 9.7 mg/dL Normal 8.8-10.0 [facility] Comment on above: Performed By: #### L AB320 #### Director Case: ELMA ROQUE ([id number]) [facility] [address] [place] [address] Chloride [Moles/Vol] 104 mmol/L Normal 98-107 [facility] Comment on above: Performed By: #### L AB320 #### Director Case: ELMA ROQUE ([id number]) [facility] [address] [place] [address] CO2 [Moles/Vol] 30 mmol/L Normal 23-31 [facility] Comment on above: Performed By: #### L AB320 #### Director Case: ELMA ROQUE ([id number]) [facility] [address] [place] [address] Creatinine [Mass/Vol] 0.86 mg/dL Normal 0.57-1.11 [facility] Comment on above: Performed By: #### L AB320 #### Director Case: ELMA ROQUE ([id number]) [facility] [address] [place] [address] GLOMERULAR FILTRATION RATE ML/MIN/1.73 SQ M.PREDICTED 77.0 mL/min/1.73m*2 Normal >60.0 [facility] Comment on above: Result Comment: Calc ulation based on the Chronic Kidney Disease Epidemiology Collaboration (CKD-EPI) equation refit without adjustment for race Performed By: #### L AB320 #### Director Case: ELMA ROQUE ([id number]) [facility] ([facility]) [address] [place] [address] Glucose [Mass/Vol] 79 mg/dL Low 82-115 [facility] Comment on above: Performed By: #### L AB320 #### Director Case: ELMA ROQUE ([id number]) [facility]) [address] [place] [address] Potassium [Moles/Vol] 4.1 mmol/L Normal 3.5-5.1 [facility] Comment on above: Result Comment: [facility] potassium values may be up to 0.5 mmol/L lower than serum values. Performed By: #### L AB320 #### Director Case: ELMA ROQUE ([id number]) [facility] ([facility]) [address] [place] [address] Sodium [Moles/Vol] 140 mmol/L Normal 136-145 [facility] Comment on above: Performed By: #### L AB320 #### Director Case: ELMA ROQUE ([id number]) [facility]) [address] [place] [address] Urea nitrogen [Mass/Vol] 19 mg/dL Normal 9-23 [facility] Comment on above: Performed By: #### L AB320 #### Director Case: ELMA ROQUE ([id number]) [facility]) [address] [place] [address] CBC (HEMOGRAM)on 06-22-2025 Erythrocyte distribution width (RBC) [Ratio] 12.8 % Normal 11.5-15.0 [facility] Comment on above: Performed By: #### L AB294 ####Director Case: ELMA ROQUE ([id number])[facility] ([facility])[address] [place] [address] Hematocrit (Bld) [Volume fraction] 38.6 % Normal 35.0-47.0 [facility] Comment on above: Performed By: #### L AB294 ####Director Case: ELMA ROQUE ([id number])[facility])[address] [place] [address] Hemoglobin (Bld) [Mass/Vol] 12.6 g/dL Normal 11.7-16.0 [facility] Comment on above: Performed By: #### L AB294 ####Director Case: ELMA ROQUE ([id number])[facility] ([facility])[address] [place] [address] MCH (RBC) [Entitic mass] 29.7 pg Normal 26.0-34.0 [facility] Comment on above: Performed By: #### L AB294 ####Director Case: ELMA ROQUE ([id number])[facility])[address] [place] [address] MCHC 32.6 % Normal 30.5-36.0 [facility] Comment on above: Performed By: #### L AB294 ####Director Case: ELMA ROQUE ([id number])[facility])[address] [place] [address] MCV (RBC) [Entitic vol] 91.0 fL Normal 77.0-99.0 [facility] Comment on above: Performed By: #### L AB294 ####Director Case: ELMA ROQUE ([id number])[facility])[address] [place] [address] Platelet mean volume (Bld) [Entitic vol] 10.7 fL Normal 9.0-12.7 [facility] Comment on above: Performed By: #### L AB294 ####Director Case: ELMA ROQUE ([id number])[facility])[address] [place] [address] Platelets (Bld) [#/Vol] 238 10*3/uL Normal 140-440 [facility] Comment on above: Performed By: #### L AB294 ####Director Case: ELMA ROQUE ([id number])[facility])[address] [place] [address] RBC (Bld) [#/Vol] 4.24 10*6/uL Normal 3.80-5.20 [facility] Comment on above: Performed By: #### L AB294 ####Director Case: ELMA ROQUE ([id number])[facility])[address] [place] [address] WBC (Bld) [#/Vol] 8.7 10*3/uL Normal 3.6-10.7 [facility] Comment on above: Performed By: #### L AB294 ####Director Case: ELMA ROQUE ([id number])[address] HEMOGLOBIN A1Con 06-22-2025 Glucose [Mass/Vol] 108 mg/dL Normal [facility] Comment on above: Result Comment: TINO Banerjee COMMENTS: HbA1c values of 5.7-6.4 percent indicate an increased risk for developing diabetes mellitus. HbA1c values greater than or equal to 6.5 percent are diagnostic of diabetes mellitus. For diagnosis of diabetes in individuals without unequivocal hyperglycemia, results should be confirmed by repeat testing. Performed By: #### L AB90 ####Director Case: ELMA ROQUE ([id number])[address] HEMOGLOBIN A1C 5.4 %HbA1C Normal <5.7 [facility] Comment on above: Result Comment: Norm al less than 5.7% Prediabetes 5.7% to 6.4% Diabetes 6.5% or higher --HgbA1C levels may not be accurate in patients who have renal disease, received recent blood transfusions, are anemic, or who have dyshemoglobinemia. Performed By: #### L AB90 ####Director Case: ELMA ROQUE ([id number])[facility])[address] [place] [address] Progress Noteon 06-22-2025 Progress Note [facility] PLANNI ELLEN Oneill : 1965 Primary Care Physician: KELL LOZA MD The patient and/or family/surrogate voluntarily agreed to participate in ACP services. Patient?s cognitive capacity: The patient is alert and oriented to person, place, time, and situation. Patient has decision making capacity. Code Status: [x] [FULL CODE - Continue all advanced life support: CPR,intubation,invasive procedures] [_] [DNR-CCA - DO NOT do CPR, intubation] [_] [DNR-HEARING CONSULTANT - Comfort care only] [_] DNR form [...] life care, with patient and/or family/surrogate. Lorena Griffith, DIETICIAN - MECHANICAL INSULATOR [employer] [facility] [employer] 06/22/2025, 3:36 PM [facility] 36on 06-07-2025 36 No lovenox indicated DVT [...] 40 mg Lovenox BID [] 60 Normal [facility] Office Visiton 06-07-2025 Follow-up visit [id number] González Oneill 1965 F Date Provider Department Center 06/07/2025 [id number] SANTIAGO [facility] None Family History Problem Relation Age of Onset Obesity Mother Diabetes Mother High Blood Pressure Mother Obesity Father Diabetes Father High Blood Pressure Father Heart disease Father Stroke Father Heart disease Sister Obesity Sister Heart disease Brother High Blood Pressure Brother Family Status - Relation Status Age at Mother Alive Father Sister Alive Brother Alive Level of Service:26067 IN OFFICE/OUTPATIENT ESTABLISHED MOD MDM 30 MIN Reason for Visit and Comments: Weight Management [645] - FPOV Normal [facility] Progress Noteon 06-07-2025 Progress Note Patient History/Asse [...] Not tested Hematology (more content not included)... [place] [address]on 05-25-2025 36 Orders signed [place] [address] Noted, thank you. [place] [address] Noted, thank you. [place] [address]on 05-24-2025 36 Please schedule surg valorie for 06/30/25, order placed. [facility] 36 Patient takes Anticoagulant: NO Name: Prescriber: Patient takes SGLT-2 Inhibitor: NO INVOKANA- canagliflozin JARDIANCE-empagliflozin STEGLATRO - ertugliflozin BRENZAVVY - bexagliflozin FARXIGA- dapagliflozin - If taking, is it used for Heart Failure: Patient assigned female at taking control that contains Estrogen: NO Difficult IV: NO Pain Management Provider: NO Support Person: ADULT GRANDDAUGHTER Date Restrictions for Surgery: NONE Normal [facility] 36 Auth APPROVED: Yes Approved for: inpatient Insurance: [employer] ID number: [id number] Authorization number: [id number] Valid dates: 06/22/2025 - 08/18/2025 Notes: INPATIENT AUTH APPROVAL FOR CPT 16270, 59613, 71987 / SCANNED TO [facility] 36on 05-20-2025 36 Noted, thank you. [place] [address] Auth submitted: Yes Insurance: [employer] ID number: [id number] Notes: INPATIENT AUTH REQUESTED FOR CPT 74918, 55706, 19049 PENDING AUTH # [id number] [facility] 36on 05-11-2025 36 Lap Diana En Y and Li parth Bx w/HH In [facility] 36 She is good to go no w! ?? Trish was able to move her money, so she can be scheduled. 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 Thank you. Nicotine is scanned with chart review- I faxed to 260 today. [facility] Nicotine Screen Bloodon 04-12 COTININE BLOOD <1.0 Normal . [facility] Comment on above: Result Comment: This test was developed and its performance characteristics determined by [employer]. It has not been cleared or approved by the Food and Drug Administration. Cotinine levels greater than 20.0 are consistent with the use of tobacco or tobacco cessation products. Performed at: [address] [id number] Land Conservation Specialist: Lou Leung MD, Phone: [phone] Performed By: #### L 501.7576, L500.1203, L100.0100 #### [facility] [place], [address] NICOTINE BLOOD <1.0 Normal . [facility] Comment on above: Result Comment: This test was developed and its performance characteristics determined by [employer]. It has not been cleared or approved by the Food and Drug Administration. Nicotine levels greater than 2.0 are consistent with the use of tobacco or tobacco cessation products. Performed By: #### L 501.9520, L500.4100, L100.0100 #### [facility] [address] [place], [address] Serum or plasma nicotine craig surement (mass/volume)on 04-30-2025 Nicotine [Mass/Vol] <1.0 ug/mL . [facility] Comment on above: This test was develo ped and its performance characteristicsdetermined by [facility]. It has not been cleared orapproved by the Food and Drug Administration.Nicotine levels greater than 2.0 are consistent with theuse of tobacco or tobacco cessation products. 29on 04-27-2025 29 Addended by: BIBIANA MCCAULEY on: 04/27/2025 09:39 AM Modules accepted: Orders [facility] 29 Addended by: STEPHANIE VIDAL on: 04/27/2025 08:22 AM Modules accepted: Orders [facility] 36on 04-27-2025 36 Mendoza please [facility] [id number] 04-22-2025 [id number] Results reviewed and CCN updated [facility] [id number] Results received, pl aced in physician folder for review. [facility] Upper GI Dual Contraston Upper GI Dual Contrast [facility] Imaging Services [address] [place] [address] Upper GI Dual Contrast MR#: [id number] Acct: [id number] Name: JAIME ONEILL Rep #: [id number] : 1965 F 59 From: Aden valderrama MD PCP: Dr. Edilberto Loza MD Status: REG CLI Study: Upper GI Dual Contrast Date of Exam: 04/20/25 Exam# [id number] Ordering Dr: JULIANA BHATIA PROCEDURE: UPPER GI [...] air contrast upper GI series. Reading Location: [place] [address] CC: Dr. 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: Signed Normal [facility] Office Visiton 04-08-2025 Follow-up visit [id number] González Oneill alli 1965 F Date Provider Department Center 04/08/2025 [id number] WRAY*ACH [facility] None Family History Problem Relation Age of Onset Obesity Mother Diabetes Mother High Blood Pressure Mother Obesity Father Diabetes Father High Blood Pressure Father Heart disease Father Stroke Father Heart disease Sister Obesity Sister Heart disease Brother High Blood Pressure Brother Family Status - Relation Status Age at Mother Alive Father Sister Alive Brother Alive Level of Service:09798 IN OFFICE/OUTPATIENT ESTABLISHED SF MDM 10 MIN Reason for Visit and Comments: Weight Management [645] - D/E FINAL 3 OF 3 Normal [facility] Follow-up visit [id number] González Oneill alli 1965 F Date Provider Department Center 04/08/2025 [id number] QUIROZ [facility] [address] Family History Problem Relation Age of Onset Obesity Mother Diabetes Mother High Blood Pressure Mother Obesity Father Diabetes Father High Blood Pressure Father Heart disease Father Stroke Father Heart disease Sister Obesity Sister Heart disease Brother High Blood Pressure Brother Family Status - Relation Status Age at Mother Alive Father Sister Alive Brother Alive Level of Service:28626 IN OFFICE/OUTPATIENT NEW LOW MDM 30 MINUTES Reason for Visit and Comments: Cardiac Clearance [882] Normal [facility] Progress Noteon 04-08-2025 Progress Note [facility] [address] [facility] [address] Dept: [phone] Dept Visit Type: New NAME: Jaime Oneill [...] decrease the likelihood of future cardiovascular events. [facility] -[facility] [place] remain available to assist in the patient's [...] (SUPER B (more content not included)... Normal [facility] Laboratory - Chemistry and C hemistry - challengeon 03-18-2025 Thiamine (Bld) [Moles/Vol] 166 nmol/L 78 - 185 nmol/L [facility] Comment on above: Vitamin supplementation within 24 hours prior to blood draw may affect the accuracy of the results. This test was developed and its analytical performance characteristics have been determined by [employer] [place], [place]. It has not been cleared or approved by the U.S. Food and Drug Administration. This assay has been validated pursuant to the CLIA regulations and is used for clinical purposes. Test Performed by [facility], [facility], [address] [place] [address] Cholo Alcantara M.D., Ph.D., Director of Laboratories , CLIA [id number] No Panel Informationon 03-18 [facility] 36on 03-17-2025 36 Patient had informed that she was established at [facility]- clearance form faxed. They responded not a patient. Spoke with patient again. She cannot remember exactly where she went before it's been years. She will schedule with [facility]. Phone number provided. [facility] 36on 03-15-2025 36 Patient call back- s he goes to [facility]- clearance request faxed [place] [address] Spoke to patient. inderjit somehow thought she had to have UGI BEFORE the EGD and that was what was worrying her. I assured her it was fine to schedule the UGI on April 19. 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 [facility] 36 Left another VM for patient requesting ret call. [facility] Laboratory - Drug toxicology on 03-12-2025 Zinc [Mass/Vol] 82 [facility] Comment on above: This test was developed and its analytical performance characteristics have been determined by [employer] [place], [place]. It has not been cleared or approved by the U.S. Food and Drug Administration. This assay has been validated pursuant to the CLIA regulations and is used for clinical purposes. Test Performed by [employer], [facility], [address] [place], [place] Cholo Alcantara M.D., Ph.D., Director of Laboratories , CLIA [id number] No Panel Informationon 03-12 [facility] 36on 03-11-2025 36 Left VM to call me a t direct line. Unsure what the confusion/question is. Normal [facility] 36 MP Pt last seen yesterday w [facility] for D&E 12/14. Pt called and left message that the soonest she can get UGI done at [facility] is 04/19/25. [facility]-does she need to try another location or just wait and have a 4th D&E in April? Normal [facility] 36 Order for recheck signed. Normal [facility] 36 Pre-op patient Mycharted pt regarding high vitamin D (77). Rec'd pt stop taking 10,000 IU vitamin D daily for now and will recheck lab in three months. Normal [facility] 36 ----- Message from Roya Bhatia APRN - MECHANICAL INSULATOR sent at 03/10/2025 12:58 PM EDT ----- Vit D is elevated - thanks Normal [facility] 25-hydroxyvitamin D3 [Mass/V ol]on 03-10-2025 Interpretation and review of laboratory results Abnormal [facility] Target concentration : 30 - 40 ng/mL; toxicity seen at concentrations >100 ng/mL Less than 20 ng/mL: Indicative of Vit D deficiency Test performed by [facility], measuring Total Vitamin D, not individual fractions. [facility] 29on 03-10-2025 29 Addended by: MARCELINA FLORES on: 03/10/2025 09:28 AM Modules accepted: Orders Normal [facility] 29 Addended by: MARCELINA FLORES on: 03/10/2025 09:27 AM Modules accepted: Orders Normal [facility] CBC (HEMOGRAM)on 03-10-2025 Erythrocyte distribution width (RBC) [Ratio] 12.9 % Normal 11.5-15.0 [facility] Comment on above: Order Comment: These orders are set for an approximate date - they can be drawn up to 3 months prior to the Expected Date on this Req.Please send results to: MD Saurabh CORTES Tamiko Montero [facility] [id number] - [phone] if not done at a [facility] Facility, please send to:[facility] - [address] [place], [place] [address]Phone: Qopjclc Name: Jaime Oneill - 1965Order Created by : Mattie Brady LPN Performed By: #### L [id number] ####Director Case: ELMA ROQUE ([id number])[address] Hematocrit (Bld) [Volume fraction] 41.0 % Normal 35.0-47.0 [facility] Comment on above: Order Comment: These orders are set for an approximate date - they can be drawn up to 3 months prior to the Expected Date on this Req.Please send results to: MD Saurabh CORTES [facility] [phone] - [phone] if not done at a [facility] Facility, please send to:[place] [address]Phone: Xevdhul Name: Jaime Oneill - 1965Order Created by : Mattie Brady LPN Performed By: #### L AB294 ####Director Case: ELMA ROQUE ([id number])[facility])[address] [place] [address] [place] Hemoglobin (Bld) [Mass/Vol] 13.3 g/dL Normal 11.7-16.0 [facility] Comment on above: Order Comment: These orders are set for an approximate date - they can be drawn up to 3 months prior to the Expected Date on this Req.Please send results to: MD Saurabh CORTES [address] [id number] - [phone] if not done at a [facility] Facility, please send to:[address], [address]Cumfh: [phone] Bqrykrh Name: Jaime Oneill - 1965Order Created by : Mattie Brady LPN Performed By: #### L AB294 ####Director Case: ELMA ROQUE ([id number])[facility] ([facility])[address] [place] [address] MCH (RBC) [Entitic mass] 29.7 pg Normal 26.0-34.0 [facility] Comment on above: Order Comment: These orders are set for an approximate date - they can be drawn up to 3 months prior to the Expected Date on this Req.Please send results to: MD Saurabh CORTES [address] Tamiko inderjit [address] [id number] - [phone] if not done at a [facility] Facility, please send to:[place] [address]Phone: Pliwhta Name: Jaime Oneill - 1965Order Created by : Mattie Brady LPN Performed By: #### L AB294 ####Director Case: ELMA ROQUE ([id number])[facility] ([facility])[address] [place] [address] MCHC 32.4 % Normal 30.5-36.0 [facility] Comment on above: Order Comment: These orders are set for an approximate date - they can be drawn up to 3 months prior to the Expected Date on this Req.Please send results to: MD Saurabh CORTES 176 Tamiko Shepard [address] [id number] - [phone] if not done at a [facility] Facility, please send to:[address], [address]Yedog: [phone] Jouskxr Name: Jaime Wiley 1965Order Created by : Mattie Brady LPN Performed By: #### L AB294 ####Director Case: ELMA ROQUE ([id number])[facility] ([facility])[address] [place] [address] MCV (RBC) [Entitic vol] 91.5 fL Normal 77.0-99.0 [facility] Comment on above: Order Comment: These orders are set for an approximate date - they can be drawn up to 3 months prior to the Expected Date on this Req.Please send results to: KELL LOZA MD - [address] [place] [phone] - [phone] if not done at a [facility] Facility, please send to:[facility] - [address] [place], [place] [address]Phone: Bfpgfwl Name: Jaime Wiley 1965Order Created by : Mattie Brady LPN Performed By: #### L AB294 ####Director Case: ELMA ROQUE ([id number])[facility])[address] [place] [address] Platelet mean volume (Bld) [Entitic vol] 10.9 fL Normal 9.0-12.7 [facility] Comment on above: Order Comment: These orders are set for an approximate date - they can be drawn up to 3 months prior to the Expected Date on this Req.Please send results to: KELL LOZA MD - 570 Tam[address] inderjit [address] [address] - [phone] if not done at a [facility] Facility, please send to:[facility] - [address] [place], [place] [address]Phone: Cwtdyed Name: Jaime Wiley 1965Order Created by : Mattie Brady LPN Performed By: #### L AB294 ####Director Case: ELMA ROQUE ([id number])[facility] ([facility])[address] [place] [address] Platelets (Bld) [#/Vol] 263 10*3/uL Normal 140-440 [facility] Comment on above: Order Comment: These orders are set for an approximate date - they can be drawn up to 3 months prior to the Expected Date on this Req.Please send results to: KELL LOZA MD - [address] She[address] [address] - [phone] if not done at a [facility] Facility, please send to:[facility] - [address] [place], [place] [address]Phone: Mqutemk Name: Jaime Wiley 1965Order Created by : Matite Brady LPN Performed By: #### L AB294 ####Director Case: ELMA ROQUE ([id number])[facility] ([facility])[address] [place] [address] RBC (Bld) [#/Vol] 4.48 10*6/uL Normal 3.80-5.20 [facility] Comment on above: Order Comment: These orders are set for an approximate date - they can be drawn up to 3 months prior to the Expected Date on this Req.Please send results to: KELL LOZA MD - [address] [place] [phone] - [phone] if not done at a [facility] Facility, please send to:[facility] - [address] [place], [place] [address]Phone: Lkbeirm Name: Jaime Oneill - 1965Order Created by : Mattie Brady LPN Performed By: #### L AB294 ####Director Case: ELMA ROQUE ([id number])[facility] ([facility])[address] [place] [address] WBC (Bld) [#/Vol] 5.7 10*3/uL Normal 3.6-10.7 [facility] Comment on above: Order Comment: These orders are set for an approximate date - they can be drawn up to 3 months prior to the Expected Date on this Req.Please send results to: KELL LOZA MD - [address] [facility] [address] [address] - [phone] if not done at a [facility] Facility, please send to:[facility] - [address] [place] [address], [address] [place] [address], [address]Kryke: [phone] Tlnakbx Name: Jaime Oneill - 1965Order Created by : Mattie Brady LPN Performed By: #### L AB294 ####Director Case: ELMA ROQUE ([id number])[facility] ([address] CBC panel Auto (Bld)Ordered By: Kim Flores on 03-10-2025 Erythrocyte distribution width (RBC) [Ratio] 12.9 % 11.5 - 15.0 % [facility] Hematocrit (Bld) [Volume fraction] 41 % 35.0 - 47.0 % [facility] Hemoglobin (Bld) [Mass/Vol] 13.3 g/dL 11.7 - 16.0 g/dL [facility] Interpretation and review of laboratory results Normal [facility] MCH (RBC) [Entitic mass] 29.7 pg 26.0 - 34.0 pg [facility] MCHC (RBC) [Mass/Vol] 32.4 % 30.5 - 36.0 % [facility] MCV (RBC) [Entitic vol] 91.5 fL 77.0 - 99.0 fL [facility] Platelet mean volume (Bld) [Entitic vol] 10.9 fL 9.0 - 12.7 fL [facility] Platelets (Bld) [#/Vol] 263 10*3/uL 140 - 440 10*3/uL [facility] RBC (Bld) [#/Vol] 4.48 10*6/uL 3.80 - 5.20 10*6/uL [facility] WBC (Bld) [#/Vol] 5.7 10*3/uL 3.6 - 10.7 10*3/uL [facility] COMPREHENSIVE METABOLIC PANE Geo 03-10-2025 Albumin [Mass/Vol] 4.3 g/dL Normal 3.4-4.8 [facility] Comment on above: Order Comment: If pa tient on coumadin within 4 days prior. Performed By: #### L [id number] #### Director Case: ELMA ROQUE ([id number]) [facility] ([facility]) [address] [place] [address] ALP [Catalytic activity/Vol] 86 U/L Normal 40-150 [facility] Comment on above: Order Comment: If pa tient on coumadin within 4 days prior. Performed By: #### L [id number] #### Director Case: ELMA ROQUE ([id number]) [facility] ([facility]) [address] [place] [address] ALT [Catalytic activity/Vol] 37 U/L High <30 [facility] Comment on above: Order Comment: If pa tient on coumadin within 4 days prior. Performed By: #### L [id number] #### Director Case: ELMA ROQUE ([id number]) [facility] ([facility]) [address] [place] [address] Anion gap [Moles/Vol] 10 mmol/L Normal 3-13 [facility] Comment on above: Order Comment: If pa tient on coumadin within 4 days prior. Performed By: #### L [id number] #### Director Case: ELMA ROQUE ([id number]) [facility] ([facility]) [address] [place] [address] AST [Catalytic activity/Vol] 40 U/L High <34 [facility] Comment on above: Order Comment: If pa tient on coumadin within 4 days prior. Performed By: #### L [id number] #### Director Case: ELMA ROQUE ([id number]) [facility] ([facility]) [address] [place] [address] Bilirubin [Mass/Vol] 0.4 mg/dL Normal <1.2 [facility] Comment on above: Order Comment: If pa tient on coumadin within 4 days prior. Performed By: #### L [id number] #### Director Case: ELMA ROQUE ([id number]) [facility]) [address] [place] [address] Calcium [Mass/Vol] 9.5 mg/dL Normal 8.8-10.0 [facility] Comment on above: Order Comment: If pa tient on coumadin within 4 days prior. Performed By: #### L [id number] #### Director Case: ELMA ROQUE ([id number]) [facility]) [address] [place] [address] Chloride [Moles/Vol] 103 mmol/L Normal 98-107 [facility] Comment on above: Order Comment: If pa tient on coumadin within 4 days prior. Performed By: #### L [id number] #### Director Case: ELMA ROQUE ([id number]) [facility]) [address] [place] [address] CO2 [Moles/Vol] 27 mmol/L Normal 23-31 [facility] Comment on above: Order Comment: If pa tient on coumadin within 4 days prior. Performed By: #### L [id number] #### Director Case: ELMA ROQUE ([id number]) [facility]) [address] [place] [address] Creatinine [Mass/Vol] 0.83 mg/dL Normal 0.57-1.11 [facility] Comment on above: Order Comment: If pa tient on coumadin within 4 days prior. Performed By: #### L [id number] #### Director Case: ELMA ROQUE ([id number]) [facility]) [address] [place] [address] [place] GLOMERULAR FILTRATION RATE ML/MIN/1.73 SQ M.PREDICTED 80.3 mL/min/1.73m*2 Normal >60.0 [facility] Comment on above: Order Comment: If pa tient on coumadin within 4 days prior. Result Comment: Calc ulation based on the Chronic Kidney Disease Epidemiology Collaboration (CKD-EPI) equation refit without adjustment for race Performed By: #### L [id number] #### Director Case: ELMA ROQUE ([id number]) [facility]) [address] [place] [address] Glucose [Mass/Vol] 89 mg/dL Normal 82-115 [facility] Comment on above: Order Comment: If pa tient on coumadin within 4 days prior. Performed By: #### L [id number] #### Director Case: ELMA ROQUE ([id number]) [facility]) [address] [place] [address] Potassium [Moles/Vol] 4.5 mmol/L Normal 3.5-5.1 [facility] Comment on above: Order Comment: If pa tient on coumadin within 4 days prior. Result Comment: [facility] potassium values may be up to 0.5 mmol/L lower than serum values. Performed By: #### L [id number] #### Director Case: ELMA ROQUE ([id number]) [facility]) [address] [place] [address] Protein [Mass/Vol] 8.0 g/dL Normal 6.4-8.3 [facility] Comment on above: Order Comment: If pa tient on coumadin within 4 days prior. Performed By: #### L [id number] #### Director Case: ELMA ROQUE ([id number]) [facility]) [address] [place] [address] [place] Sodium [Moles/Vol] 140 mmol/L Normal 136-145 [facility] Comment on above: Order Comment: If pa tient on coumadin within 4 days prior. Performed By: #### L AB320 #### Director Case: ELMA ROQUE ([id number]) [facility]) [address] [place] [address] [place] Urea nitrogen [Mass/Vol] 21 mg/dL Normal 9-23 [facility] Comment on above: Order Comment: If pa tient on coumadin within 4 days prior. Performed By: #### L [id number] #### Director Case: ELMA ROQUE ([id number]) [facility] ([facility]) [address] [place] [address] Cobalamin (Vitamin B12) [Mas s/Vol]on 03-10-2025 Interpretation and review of laboratory results Normal [facility] Comprehensive metabolic 1998 panelon 03-10-2025 Albumin [Mass/Vol] 4.3 g/dL 3.4 - 4.8 g/dL [facility] ALP [Catalytic activity/Vol] 86 U/L 40 - 150 U/L [facility] ALT [Catalytic activity/Vol] 37 U/L High NINF - 30 U/L [facility] Anion gap [Moles/Vol] 10 mmol/L 3 - 13 mmol/L [facility] AST [Catalytic activity/Vol] 40 U/L High NINF - 34 U/L [facility] Bilirubin [Mass/Vol] 0.4 mg/dL NINF - 1.2 mg/dL [facility] Calcium [Mass/Vol] 9.5 mg/dL 8.8 - 10. 0 mg/dL [facility] Chloride [Moles/Vol] 103 mmol/L 98 - 10 7 mmol/L [facility] CO2 [Moles/Vol] 27 mmol/L 23 - 31 mmol/L [facility] Creatinine [Mass/Vol] 0.83 mg/dL 0.57 - 1.11 mg/dL [facility] GFR/1.73 sq M.predicted (S/P/Bld) [Vol rate/Area] 80.3 mL/min - PINF [facility] Comment on above: Calculation based on the Chronic Kidney Disease Epidemiology Collaboration (CKD-EPI) equation refit without adjustment for race Glucose [Mass/Vol] 89 mg/dL 82 - 115 mg/dL [facility] Potassium [Moles/Vol] 4.5 mmol/L 3.5 - 5.1 mmol/L [facility] Comment on above: Plasma potassium adri ues may be up to 0.5 mmol/L lower than serum values. Protein [Mass/Vol] 8 g/dL 6.4 - 8.3 g/dL [facility] Sodium [Moles/Vol] 140 mmol/L 136 - 145 mmol/L [facility] Urea nitrogen [Mass/Vol] 21 mg/dL 9 - 23 mg/dL [facility] FERRITINon 03-10-2025 Ferritin [Mass/Vol] 69 ng/mL Normal 5-204 [facility] Comment on above: Result Comment: ORDE R COMMENTS: These orders are set for an approximate date - they can be drawn up to 3 months prior to the Expected Date on this Req. Please send results to: KELL LOZA MD - [address] [address] - [phone] And if not done at a [facility] Facility, please send to: [facility] [place] - [address] [place] [address], [address] [facility], [address] Patient Name: Jaime Oneill - 1965 Order Created by : Mattie Brady LPN Ferritin levels below 10 ng/mL have been reported as indicative of iron deficiency anemia. Performed By: #### L [id number] #### Director Case: ELMA ROQUE ([id number]) [facility]) [address] [place] [address] FOLATEon 03-10-2025 FOLATE RESULT 18.1 ng/mL Normal 7.0-31.4 [facility] Comment on above: Order Comment: If pa tient on coumadin within 4 days prior. Result Comment: TC Significant interference from hemolysis. Result integrity compromised. Interpret with caution. Performed By: #### L AB320 #### Director Case: ELMA ROQUE ([id number]) [facility]) [address] [place] [address] Ferritin [Mass/Vol]on 2024 Interpretation and review of laboratory results Normal [facility] Ferritin levels belo w 10 ng/mL have been reported as indicative of iron deficiency anemia. [facility] Folate [Mass/Vol]on 03-10-20 Interpretation and review of laboratory results Normal [facility] HEMOGLOBIN A1Con 03-10-2025 Glucose [Mass/Vol] 108 mg/dL Normal [facility] Comment on above: Result Comment: ORDE R COMMENTS: These orders are set for an approximate date - they can be drawn up to 3 months prior to the Expected Date on this Req. Please send results to: KELL LOZA MD - [address] [facility] [address] - [phone] And if not done at a [facility] Facility, please send to: [address], [address] Patient Name: Jaime Oneill - 1965 Order Created by : Mattie Brady LPN HbA1c values of 5.7-6.4 percent indicate an increased risk for developing diabetes mellitus. HbA1c values greater than or equal to 6.5 percent are diagnostic of diabetes mellitus. For diagnosis of diabetes in individuals without unequivocal hyperglycemia, results should be confirmed by repeat testing. Performed By: #### L [id number] #### Director Case: ELMA ROQUE ([id number]) [facility] ([facility]) [address] [place] [address] HEMOGLOBIN A1C 5.4 %HbA1C Normal <5.7 [facility] Comment on above: Result Comment: Norm al less than 5.7% Prediabetes 5.7% to 6.4% Diabetes 6.5% or higher --HgbA1C levels may not be accurate in patients who have renal disease, received recent blood transfusions, are anemic, or who have dyshemoglobinemia. Performed By: #### L [id number] #### Director Case: ELMA ROQUE ([id number]) [address] IRONon 03-10-2025 IRON, TOTAL 81 ug/dL Normal 50-170 [facility] Comment on above: Order Comment: These orders are set for an approximate date - they can be drawn up to 3 months prior to the Expected Date on this Req.Please send results to: KELL LOZA MD - [address] [place] [facility] [address] - [phone] if not done at a [facility] Facility, please send to:[address], [address]Cpiqo: [phone] Wsldihb Name: Jaime Oneill - 1965Order Created by : Mattie Brady LPN Performed By: #### L [id number], [id number], [id number] ####Director Case: ELMA ROQUE ([id number])[facility] [place] [address] Iron and Iron binding capaci ty panelon 03-10-2025 Iron [Mass/Vol] 81 ug/dL 50 - 170 ug/dL [facility] LIPID PANELon 03-10-2025 Cholesterol [Mass/Vol] 227 mg/dL High <200 [facility] Comment on above: Order Comment: If pa tient on coumadin within 4 days prior. Performed By: #### L [id number] #### Director Case: ELMA ROQUE ([id number]) [facility]) [address] [place] [address] Cholesterol in HDL [Mass/Vol] 75 mg/dL Normal >=60 [facility] Comment on above: Order Comment: If pa tient on coumadin within 4 days prior. Performed By: #### L [id number] #### Director Case: ELMA ROQUE ([id number]) [facility] ([facility]) [address] [place] [address] Cholesterol.total/Chol esterol in HDL [Mass ratio] 3 {ratio} Normal [facility] Comment on above: Order Comment: If pa tient on coumadin within 4 days prior. Result Comment: Ref Range: < 3 Low Risk for CHD 3-6 Mod Risk for CHD > 6 High Risk for CHD Performed By: #### L AB320 #### Director Case: ELMA ROQUE ([id number]) [facility] ([facility]) [address] [place] [address] [place] LOW DENSITY LIPOPROTEIN 137 mg/dL High 0-<100 [facility] Comment on above: Order Comment: If pa tient on coumadin within 4 days prior. Performed By: #### L [id number] #### Director Case: ELMA ROQUE ([id number]) [facility] ([facility]) [address] [place] [address] NON-HDL CHOLESTEROL, CALCULATED 152 High <130 [facility] Comment on above: Order Comment: If pa tient on coumadin within 4 days prior. Performed By: #### L [id number] #### Director Case: ELMA ROQUE ([id number]) [facility]) [address] [place] [address] Triglyceride [Mass/Vol] 75 mg/dL Normal <150 [facility] Comment on above: Order Comment: If pa tient on coumadin within 4 days prior. Performed By: #### L AB320 #### Director Case: ELMA ROQUE ([id number]) [facility] ([facility]) [address] [place] [address] VERY LOW DENSITY LIPOPROTEIN, CALCULATED 15 mg/dL Normal <=30 [facility] Comment on above: Order Comment: If pa tient on coumadin within 4 days prior. Performed By: #### L [id number] #### Director Case: ELMA ROQUE ([id number]) [facility] ([facility]) [address] [place] [address] Laboratory - Chemistry and C hemistry - challengeon 03-10-2025 Folate [Mass/Vol] 18.1 ng/mL 7.0 - 31.4 ng/mL [facility] Comment on above: TC Significant interference from hemolysis. Result integrity compromised. Interpret with caution. Cobalamin (Vitamin B12) [Mass/Vol] 693 pg/mL 213 - 816 pg/mL [facility] Comment on above: TC Significant interference from hemolysis. Result integrity compromised. Interpret with caution. Ferritin [Mass/Vol] 69 ng/mL 5 - 204 ng/mL [facility] 25-hydroxyvitamin D3 [Mass/Vol] 77 ng/mL High See comment [facility] TSH Qn 0.45 m[IU]/L [facility] Average glucose Estimated from glycated hemoglobin (Bld) [Mass/Vol] 108 mg/dL [facility] Magnesium [Mass/Vol] 1.9 mg/dL 1.6 - 2 .6 mg/dL [facility] Laboratory - Hematology and Cell countson 03-10-2025 HbA1c (Bld) [Mass fraction] 5.4 % [facility] Comment on above: Normal less than 5.7 % Prediabetes 5.7% to 6.4% Diabetes 6.5% or higher --HgbA1C levels may not be accurate in patients who have renal disease, received recent blood transfusions, are anemic, or who have dyshemoglobinemia. Lipid 1996 panelon 5 Cholesterol [Mass/Vol] 227 mg/dL High NINF - 200 mg/dL [facility] Cholesterol in HDL [Mass/Vol] 75 mg/dL 60 - PINF mg/dL [facility] Cholesterol in LDL [Mass/Vol] 137 mg/dL High 0 - <100 [facility] Cholesterol.total/Chol esterol in HDL [Mass ratio] 3 {ratio} [facility] Comment on above: Ref Range: < 3 Low Risk for CHD 3-6 Mod Risk for CHD > 6 High Risk for CHD NON-HDL CHOLESTEROL, CALCULATED 152 High NINF - 130 [facility] Triglyceride [Mass/Vol] 75 mg/dL NINF - 150 mg/dL [facility] VERY LOW DENSITY LIPOPROTEIN, CALCULATED 15 mg/dL [facility] - 30 mg/dL [facility] MAGNESIUMon 03-10-2025 Magnesium [Mass/Vol] 1.9 mg/dL Normal 1.6-2.6 [facility] Comment on above: Result Comment: TINO Banerjee COMMENTS: These orders are set for an approximate date - they can be drawn up to 3 months prior to the Expected Date on this Req. Please send results to: KELL LOZA MD - [address] [address] - [phone] And if not done at a [facility] Facility, please send to: [facility] - [address] [place] [address], [address] [facility], [address] Patient Name: Jaime Oneill - 1965 Order Created by : Mattie Brady LPN Higher values can be expected in females during menses. Performed By: #### L AB320 #### Director Case: ELMA ROQUE ([id number]) [facility] ([facility]) [address] [place] [address] Magnesium [Mass/Vol]on 03-10 Interpretation and review of laboratory results Normal [facility] Higher values can be expected in females during menses. [facility] No Panel Informationon 03-10 Interpretation and review of laboratory results Normal [facility] HbA1c values of 5.7- 6.4 percent indicate an increased risk for developing diabetes mellitus. HbA1c values greater than or equal to 6.5 percent are diagnostic of diabetes mellitus. For diagnosis of diabetes in individuals without unequivocal hyperglycemia, results should be confirmed by repeat testing. [facility] Interpretation and review of laboratory results Abnormal [facility] Office Visiton 03-10-2025 Follow-up visit [id number] González Oneill alli 1965 F Date Provider Department Center 03/10/2025 6241-OYRPBPT-ERAGOJULIANA BHATIA*ACH BCC SURG None Family History Problem Relation Age of Onset Obesity Mother Diabetes Mother High Blood Pressure Mother Obesity Father Diabetes Father High Blood Pressure Father Heart disease Father Stroke Father Heart disease Sister Obesity Sister Heart disease Brother High Blood Pressure Brother Family Status - Relation Status Age at Mother Alive Father Sister Alive Brother Alive Level of Service:67027 IN OFFICE/OUTPATIENT ESTABLISHED MDM 10 MIN Reason for Visit and Comments: Weight Management [645] - D/E 2 OF 3 Normal [facility] THYROID STIMULATING HORMONEo n 03-10-2025 THYROID STIMULATING HORMONE 0.45 uIU/mL Normal 0.35-4.94 [facility] Comment on above: Order Comment: These orders are set for an approximate date - they can be drawn up to 3 months prior to the Expected Date on this Req.Please send results to: KELL LOZA MD - [address] [facility] [address] - [phone] if not done at a [facility] Facility, please send to:[facility] - [address] [place] [address], [address], [address]Yqazn: [phone] Cyzmxcg Name: Jaime Oneill - 1965Order Created by : Mattie Brady LPN Performed By: #### L AB535, [id number], LAB94 ####Director Case: ELMA ROQUE ([id number])[facility] ([facility])[address] [place] [address] VITAMIN B1, WHOLE BLOOD (BKR [facility])on 03-10-2025 [facility] VITAMIN B1 (THIAMINE), BLOOD, LC/MS/MS 166 nmol/L Normal 78-185 [facility] Comment on above: Order Comment: If pa tient on coumadin within 4 days prior. Result Comment: Vitamin supplementation within 24 hours prior to blood draw may affect the accuracy of the results. This test was developed and its analytical performance characteristics have been determined by [employer] [place], [place]. It has not been cleared or approved by the U.S. Food and Drug Administration. This assay has been validated pursuant to the CLIA regulations and is used for clinical purposes. Test Performed by [facility], [facility], [address] [place], [place] Cholo Alcantara M.D., Ph.D., Director of Laboratories , CLIA [id number] Performed By: #### L AB320 #### Director Case: ELMA ROQUE ([id number]) [facility] ([facility]) [address] [place] [address] VITAMIN B12on 03-10-2025 Cobalamin (Vitamin B12) [Mass/Vol] 693 pg/mL Normal 213-816 [facility] Comment on above: Order Comment: If pa tient on coumadin within 4 days prior. Result Comment: TC Significant interference from hemolysis. Result integrity compromised. Interpret with caution. Performed By: #### L AB320 #### Director Case: ELMA ROQUE ([id number]) [facility] ([facility]) [address] [place] [address] VITAMIN D DEFICIENCY SCREENI NG (VIT D 25)on 03-10-2025 VIT D 25-OH, TOTAL 77 ng/mL High See comment [facility] Comment on above: Result Comment: ORDE R COMMENTS: These orders are set for an approximate date - they can be drawn up to 3 months prior to the Expected Date on this Req. Please send results to: KELL LOZA MD - [address] [address] - [phone] And if not done at a [facility] Facility, please send to: [address], [address] Patient Name: Jaime Oneill - 1965 Order Created by : Mattie Brady LPN Target concentration: 30 - 40 ng/mL; toxicity seen at concentrations >100 ng/mL Less than 20 ng/mL: Indicative of Vit D deficiency Test performed by [employer], measuring Total Vitamin D, not individual fractions. Performed By: #### L AB535, PLB910, LAB94 ####Director Case: ELMA ROQUE ([id number])[facility] ([facility])[address] [place] [address] ZINC (BKR [facility])on 5 [facility] ZINC 82 mcg/dL Normal 60-130 [facility] Comment on above: Order Comment: These orders are set for an approximate date - they can be drawn up to 3 months prior to the Expected Date on this Req.Please send results to: KELL LOZA MD - [address] [address] - [phone] if not done at a [facility] Facility, please send to:[address], [address]Kbswg: [phone] Deduosk Name: Jaime Oneill - 1965Order Created by : Mattie Brady LPN Result Comment: This test was developed and its analytical performance characteristics have been determined by [employer] [place], [place]. It has not been cleared or approved by the U.S. Food and Drug Administration. This assay has been validated pursuant to the CLIA regulations and is used for clinical purposes. Test Performed by Maldonado Polk, [employer] [place], [address] [place] [address] Cholo Alcantara M.D., Ph.D., Director of Laboratories , CLIA [id number] Performed By: #### L AB581 ####[employer] (AMDBEAKER)[address] [place], [place] [address]Y, [place] [facility] Office Visiton 03-02-2025 Follow-up visit [id number] González Oneill 1965 Date Provider Department Center 03/02/2025 05205-KDFVSBIBIANA LYNCH Jorge None Family History Problem Relation Age of Onset Obesity Mother Diabetes Mother High Blood Pressure Mother Obesity Father Diabetes Father High Blood Pressure Father Heart disease Father Stroke Father Heart disease Sister Obesity Sister Heart disease Brother High Blood Pressure Brother Family Status - Relation Status Age at Mother Alive Father Sister Alive Brother Alive Level of Service:04838 IN PSYCL/NRPSYCL TST ELEC PLATFORM AUTO RESULT Reason for Visit and Comments: Psychiatric Evaluation [628150] - testing [facility] Follow-up visit [id number] González Oneille 1965 Date Provider Department Center 03/02/2025 84583-YPGIXBIBIANA LYNCH [facility] None Family History Problem Relation Age of Onset Obesity Mother Diabetes Mother High Blood Pressure Mother Obesity Father Diabetes Father High Blood Pressure Father Heart disease Father Stroke Father Heart disease Sister Obesity Sister Heart disease Brother High Blood Pressure Brother Family Status - Relation Status Age at Mother Alive Father Sister Alive Brother Alive Level of Service:87251 IN PSYCHIATRIC DIAGNOSTIC EVALUATION Reason for Visit and Comments: Psychiatric Evaluation [011889] [facility] Progress Noteon 03-02-2025 Progress Note [facility]NA[facility] [place] PSYCHOLOGICAL TESTING VIA COMPUTER PATIENT: Jaime Oneill [...] clinical interview. Bibiana Espinoza, PhD Clinical Psychologist Weight Management [facility] Progress Noteon 02-25-2025 Progress Note [facility] BARIATRIC NUTRITION ASSESSMENT / DIET & EXERCISE [...] Amount regained Most successful Lifestyle Changes Now [facility] CURRENT MEAL PLANNING Self [...] Bariatric Nutrition Assessment completed by: Dashawn Workman [facility] 36on 02-22-2025 36 Corrected. [facility] 36 This is a 3 visit maura palmer. Next visit marked 2 of 6- I do not know how to correct with new system. Thanks! [facility] 37on 02-19-2025 37 YOUR APPOINTMENT TOAve DOUGLASS WAS WITH THE [facility] L[facility]G [facility], COPD CLINIC, PULMONARY AND SLEEP MEDICINE OFFICE. PLEASE CALL OUR OFFICE AT [phone] IF YOU HAVE NOT RECEIVED YOUR TEST [...] to make improvements. COVID-19 VACCINATION INFORMATION: PH. [phone] HEALTH.ORG/CORONAVIRUS/VACC INE [facility] Central Scheduling [phone] [facility] Sleep Scheduling [phone] [facility] Office Visiton 02-19-2025 Follow-up visit [id number] González Oneill 1965 F Date Provider Department Center 02/19/2025 CRICKET AGUILAR *SHMG ACH PUL None Family History Problem Relation Age of Onset Obesity Mother Diabetes Mother High Blood Pressure Mother Obesity Father Diabetes Father High Blood Pressure Father Heart disease Father Stroke Father Heart disease Sister Obesity Sister Heart disease Brother High Blood Pressure Brother Family Status - Relation Status Age at Mother Alive Father Sister Alive Brother Alive Level of Service:87860 IN OFFICE/OUTPATIENT NEW LOW MDM 30 MINUTES Reason for Visit and Comments: New Patient [542] [facility] Progress Noteon 02-19-2025 Progress Note Visit type: [...] or CP. 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 Known history of sleep apnea: no [place] Sleepiness Scale: 3 Sleep apnea symptoms: Snoring [...] Behavior normal. Tho (more content not included)... [facility] 02-09-2025 36 There is only 1 note from July that is still good but now too large of a gap to even use that. She should do the 3 here. [facility] 02-05-2025 36 Medical weight loss visits noted in care everywhere for [facility]. Will review to see if these apply for program. [facility] 02-03-2025 29 Addended by: Fox BRADY on: 02/03/2025 11:56 AM Modules accepted: Orders [facility] 36on 02-03-2025 36 ----- Message from KENTON Pineda CNP sent at 02/03/2025 11:11 AM EDT ----- Please obtain bariatric records from in [facility] [address], [place] [address] ? 39 wi attention Michelle Shah Normal [facility] Office Visiton 02-03-2025 Follow-up visit [id number] OneillGonzálezrichard carson 1965 F Date Provider Department Center 02/03/2025 0809-HTBNZLM-NMHSYJULIANA BHATIA*ACH BCC SURG None Family History Problem Relation Age of Onset Obesity Mother Diabetes Mother High Blood Pressure Mother Obesity Father Diabetes Father High Blood Pressure Father Heart disease Father Stroke Father Heart disease Sister Obesity Sister Heart disease Brother High Blood Pressure Brother Family Status - Relation Status Age at Mother Alive Father Sister Alive Brother Alive Level of Service:94879 IN OFFICE/OUTPATIENT ESTABLISHED MOD MDM 30 MIN Reason for Visit and Comments: Weight Management [645] - Initial D/E 1 of 3 [facility] Progress Noteon 02-03-2025 Progress Note See TE records reque sts - Bariatric records for further documentation [facility] Progress Note BARIATRIC CARE CENTE R SURGICAL WEIGHT LOSS MANAGEMENT PROGRAM SUPERVISED DIET AND EXERCISE SURGICAL PREPARATORY REGIMEN PROGRESS NOTE INITIAL EVALUATION Patient: Jaime Oneill Service Date: 02/03/2025 Date of : 1965 Patient History/Assessment Summary: The patient is a pleasant 59 y.o. year old female, who stands Height: 5' 5 (165.1 cm) ([facility]) tall with a weight of Weight: [...] (113 kg) Initial BMI: Initial BMI: 41.43 [place] Body Weight: [place] Body Weight: 125 lb (56.7 kg) Excess [...] DIET HISTORY FORM with patient (located in [employer]) Her diet contains adequate amounts of [...] Physician Diet Recommendation (more content not included)... [facility] 01-28-2025 29 Addended by: TRISH GOMES on: 01/28/2025 11:34 AM Modules accepted: Orders [facility] 29 Addended by: Fox BRADY on: 01/28/2025 09:37 AM Modules accepted: Orders [facility] 3601-28-2025 36 Orders / pre op chec k list placed in folder for D/E 02/03/2025 W/ MGS. [facility] 36 EGD order sent to 0 senior power scheduler, labs pended, Pre op check list scanned to [employer]. [facility] 36 PLAN Encounter Diagnoses Name Primary? Morbid [...] full chart rreview was performed by myself. [facility] Progress Noteon 01-28-2025 Progress Note Patient is scheduled for EGD with biopsy- CPT 68654 on 03/25/25 at 145PM Contact attempts- 3 must be made in 2 different forms. Discussed with patient via phone and sent [employer] message after confirming pt active on [employer] Important info discussed as applicable: Is patient [...] needs held 3 days prior to EGD [facility] Progress Note Auth required: Yes Insurance: [employer] [place] [facility] [place]: [id number] Authorization number: [id number] Valid dates: 02/25/25 to 05/27/2025 Notes: Tracking # [id number] [facility] Progress Note ADDED TO OUTLOOK [facility] Progress Note Print [facility] Progress Note Patient is scheduled for EGD with biopsy- CPT 95422 on 02/25/2025 at 1:45 95 ARCH Contact attempts- 3 must be made in 2 different forms. Discussed with patient via phone and sent [employer] message after confirming pt active on [employer] Important info discussed as applicable: Is patient [...] needs held 3 days prior to EGD [facility] Progress Note ENDOSCOPY ORDERS To be scheduled with: Dr. Santiago Patient is: Pre-op/Pre-Bariatric Surgery CPT code: EGD with biopsy- CPT 14262 Diagnosis: GERD- K21.9 If pre-op, Diet & [...] to be obtained prior to scheduling Normal [facility] Office Visiton 01-25-2025 Follow-up visit [id number] González Oneill 1965 F Date Provider Department Center 01/25/2025 JORDON SUNSHINE [facility] SURG None Family History Problem Relation Age of Onset Obesity Mother Diabetes Mother High Blood Pressure Mother Obesity Father Diabetes Father High Blood Pressure Father Heart disease Father Stroke Father Heart disease Sister Obesity Sister Heart disease Brother High Blood Pressure Brother Family Status - Relation Status Age at Mother Alive Father Sister Alive Brother Alive Level of Service:06084 IN OFFICE/OUTPATIENT NEW MODERATE MDM 45 MINUTES Reason for Visit and Comments: Surgical Consult [878] - NEW Normal [facility] L3410.9998on 01-21-2025 [facility] Misc. COMMENT Normal . [facility] Comment on above: Order Comment: 03601 8 RED FRZ Result Comment: Test Ordered: [id number] Dexamethasone, Serum Dexamethasone, Serum 460 ng/dL ES [...] previous day: 1600 - 2850 Performed at: [facility] [address] [place] [id number] Land Conservation Specialist: Wander Marcelino MD, Phone: [phone] Performed at: [facility] [address] [id number] Land Conservation Specialist: Wil Seth PhD, Phone: [phone] Performed By: #### L 3410.9998, L509.6001 #### [facility] [address] [place], [address] L509.6001on 01-15-2025 CORTISOL 0.66 ug/dL Low 6.02-18.40 [facility] Comment on above: Order Comment: POST MED Performed By: #### L 3410.9998, L509.6001 #### [facility] [address] [place], [place], [id number] No Panel InformationOrdered By: Edilberto Dago on 01-15-2025 Cortisol AM Sample 0.66 ug/dL Low 6.02-18.40 [facility] Absolute lymphocyte countOrd ered By: Edilberto Dago on 01-14-2025 Lymphocytes Auto (Unsp spec) [#/Vol] 2.15 10*3/uL 0.83-4.51 [facility] Absolute neutrophil countOrd ered By: Edilberto Dago on 01-14-2025 Neutrophils (Bld) [#/Vol] 4.2 10*3/uL 2.0-7.7 [facility] Anion gap in Serum or Plasma Ordered By: Edilberto Loza on 01-14-2025 Anion gap [Moles/Vol] 13 mmol/L 5- [facility] Automated lymphocyte count a s percentage of total leukocytesOrdered By: Edilberto Dago on 01-14-2025 Lymphocytes/100 WBC Auto (Unsp spec) 30.1 % - [facility] BUN/creatinine ratioOrdered By: Edilberto Dago on 01-14-2025 Urea nitrogen/Creatinine [Mass ratio] 18.4 mg/mg 10-20 [facility] Basophil percentageOrdered B y: Edilberto Dago on 01-14-2025 Basophils/100 WBC (Bld) 1.1 % High 0-1 [facility] Bilirubin, totalOrdered By: Edilberto Dago on 01-14-2025 Bilirubin [Mass/Vol] 0.23 mg/dL 0.00-1.30 [facility] CBC W/Diff, Automatedon Absolute Lymph 2.15 X10 3/uL Normal 0.83-4.51 [facility] Comment on above: Performed By: #### L 501.9520, L500.4100, L100.0100 #### [facility] [address] [place], [address] Absolute Neut 4.2 X10 3/uL Normal 2.0-7.7 [facility] Comment on above: Performed By: #### L 501.9520, L500.4100, L100.0100 #### [facility] [address] [place], [address] Basophils/100 WBC (Bld) 1.1 % High 0-1 [facility] Comment on above: Performed By: #### L 501.9520, L500.4100, L100.0100 #### [facility] [address] [place], [address] Eosinophils/100 WBC (Bld) 1.1 % Normal 0-5 [facility] Comment on above: Performed By: #### L 501.9520, L500.4100, L100.0100 #### [facility] [address] [place], [address] Erythrocyte distribution width (RBC) [Ratio] 13.0 % Normal 11.6-14.6 [facility] Comment on above: Performed By: #### L 501.9520, L500.4100, L100.0100 #### [facility] [address] [place], [address] Hematocrit (Bld) [Volume fraction] 38.5 % Normal 37-47 [facility] Comment on above: Performed By: #### L 501.9520, L500.4100, L100.0100 #### [facility] [address] [place], [address] Hemoglobin (Bld) [Mass/Vol] 12.4 g/dL Normal 12.0-15.0 [facility] Comment on above: Performed By: #### L 501.9520, L500.4100, L100.0100 #### [facility] [address] [place], [address] IG% 0.300 Normal 0.0-0.9 [facility] Comment on above: Result Comment: IG% - Immature Granulocytes (promyelocytes, myelocytes and metamyelocytes) > 1% indicates that a LEFT SHIFT is Present. Performed By: #### L 501.9520, L500.4100, L100.0100 #### [facility] [address] [place], [address] Lymphocytes/100 WBC (Bld) 30.1 % Normal 19-41 [facility] Comment on above: Performed By: #### L 501.9520, L500.4100, L100.0100 #### [facility] [address] [place], [address] MCH (RBC) [Entitic mass] 29.2 pg Normal 27.0-32.0 [facility] Comment on above: Performed By: #### L 501.9520, L500.4100, L100.0100 #### [facility] [address] [place], [address] MCHC (RBC) [Mass/Vol] 32.2 g/dL Normal 32-36 [facility] Comment on above: Performed By: #### L 501.9520, L500.4100, L100.0100 #### [facility] [address] [place], [address] MCV (RBC) [Entitic vol] 90.8 fL Normal 81-99 [facility] Comment on above: Performed By: #### L 501.9520, L500.4100, L100.0100 #### [facility] [address] [place], [address] Monocytes/100 WBC (Bld) 8.8 % Normal 0-10 [facility] Comment on above: Performed By: #### L 501.9520, L500.4100, L100.0100 #### [facility] [address] [place], [address] Neutrophils/100 WBC (Bld) 58.6 % Normal 47-70 [facility] Comment on above: Performed By: #### L 501.9520, L500.4100, L100.0100 #### [facility] [address] [place], [address] Nucleated RBC (Bld) [#/Vol] 0 10*3/uL Normal 0-5 [facility] Comment on above: Performed By: #### L 501.9520, L500.4100, L100.0100 #### [facility] [address] [place], [address] Platelet mean volume (Bld) [Entitic vol] 10.9 fL Normal 6.2-12.0 [facility] Comment on above: Performed By: #### L 501.9520, L500.4100, L100.0100 #### [facility] [address] [place], [address] Platelets (Bld) [#/Vol] 276 10*3/uL Normal 150-450 [facility] Comment on above: Performed By: #### L 501.9520, L500.4100, L100.0100 #### [facility] [address] [place], [address] RBC (Bld) [#/Vol] 4.24 10*6/uL Normal 4.2-5.4 [facility] Comment on above: Performed By: #### L 501.9520, L500.4100, L100.0100 #### [facility] [address] [place], [address] RDW SD 42.9 fl Normal 35.1-43.9 [facility] Comment on above: Performed By: #### L 501.9520, L500.4100, L100.0100 #### [facility] [address] [place], [address] WBC (Bld) [#/Vol] 7.1 10*3/uL Normal 4.4-11.0 [facility] Comment on above: Performed By: #### L 501.9520, L500.4100, L100.0100 #### [facility] [address] [place], [address] Calculated very low density lipoprotein (VLDL) cholesterol measurementOrdered By: Edilberto Loza on 01-14-2025 Calculated very low density lipoprotein (VLDL) cholesterol measurement 21 mg/dL 5-40 [facility] VLDL Cholesterol 21 mg/dL 5-40 [facility] Carbon dioxide, total [Moles /volume] in Central venous bloodOrdered By: Edilberto Loza on 01-14-2025 CO2 [Moles/Vol] 25.7 mmol/L 21.0-32.0 [facility] Chloride assayOrdered By: Ricardo Loza on 01-14-2025 Chloride [Moles/Vol] 101 mmol/L 98-108 [facility] Comprehensive Metabolic Prof ilon 01-14-2025 Albumin [Mass/Vol] 4.6 g/dL Normal 3.4-4.8 [facility] Comment on above: Performed By: #### L 501.9520, L500.4100, L100.0100 #### [facility] [address] [place], [address] Albumin/Globulin [Mass ratio] 1.4 {ratio} Normal 0.9-2.4 [facility] Comment on above: Performed By: #### L 501.9520, L500.4100, L100.0100 #### [facility] [address] [place], [address] ALK PHOS 81 U/L Normal 35-104 [facility] Comment on above: Performed By: #### L 501.9520, L500.4100, L100.0100 #### [facility] [address] [place], [address] ALT [Catalytic activity/Vol] 37 U/L High <=34 [facility] Comment on above: Performed By: #### L 501.9520, L500.4100, L100.0100 #### [facility] [address] [place], [address] AST [Catalytic activity/Vol] 32 U/L Normal <=31 [facility] Comment on above: Performed By: #### L 501.9520, L500.4100, L100.0100 #### [facility] [address] [place], [address] Bilirubin [Mass/Vol] 0.23 mg/dL Normal 0.00-1.30 [facility] Comment on above: Performed By: #### L 501.9520, L500.4100, L100.0100 #### [facility] [address] [place], [address] BUN/CRE 18.4 RATIO Normal 10-20 [facility] Comment on above: Performed By: #### L 501.9520, L500.4100, L100.0100 #### [facility] [address] [place], [address] Calcium [Mass/Vol] 9.9 mg/dL Normal 7.6-11.0 [facility] Comment on above: Performed By: #### L 501.9520, L500.4100, L100.0100 #### [facility] [address] [place], [address] Chloride [Moles/Vol] 101 mmol/L Normal 98-108 [facility] Comment on above: Performed By: #### L 501.9520, L500.4100, L100.0100 #### [facility] [address] [place], [address] CO2 [Moles/Vol] 25.7 mmol/L Normal 21.0-32.0 [facility] Comment on above: Performed By: #### L 501.9520, L500.4100, L100.0100 #### [facility] [address] [place], [address] Creatinine [Mass/Vol] 0.87 mg/dL Normal 0.70-1.20 [facility] Comment on above: Performed By: #### L 501.9520, L500.4100, L100.0100 #### [facility] [address] [place], [address] GAP 13 Normal 5-15 [facility] Comment on above: Performed By: #### L 501.9520, L500.4100, L100.0100 #### [facility] [address] [place], [address] GFR/1.73 sq M.predicted among non-blacks MDRD (S/P/Bld) [Vol rate/Area] 75 mL/min/{1.73_m2} Normal >60 [facility] Comment on above: Result Comment: mL/m in/1.73m2 CKD-EPI Creatinine Equation (2020) Performed By: #### L 501.9520, L500.4100, L100.0100 #### [facility] [address] [place], [address] Globulin (S) [Mass/Vol] 3.3 g/dL Normal 2.2-4.2 [facility] Comment on above: Performed By: #### L 501.9520, L500.4100, L100.0100 #### [facility] [address] [place], [address] Glucose [Mass/Vol] 91 mg/dL Normal 70-99 [facility] Comment on above: Performed By: #### L 501.9520, L500.4100, L100.0100 #### [facility] [address] [place], [address] Potassium [Moles/Vol] 4.7 mmol/L Normal 3.3-5.1 [facility] Comment on above: Performed By: #### L 501.9520, L500.4100, L100.0100 #### [facility] [address] [place], [address] Sodium [Moles/Vol] 140 mmol/L Normal 133-145 [facility] Comment on above: Performed By: #### L 501.9520, L500.4100, L100.0100 #### [facility] [address] [place], [address] T PROT 7.9 g/dL Normal 5.9-8.4 [facility] Comment on above: Performed By: #### L 501.9520, L500.4100, L100.0100 #### [facility] [address] [place], [address] Urea nitrogen [Mass/Vol] 16 mg/dL Normal 4-19 [facility] Comment on above: Performed By: #### L [id number], L500.4100, L100.0100 #### [facility] [address] [place], [address] Eosinophil percentageOrdered By: Edilberto Loza on 01-14-2025 Eosinophils/100 WBC (Bld) 1.1 % 0-5 [facility] Erythrocyte distribution wid th ratioOrdered By: Edilberto Loza on 01-14-2025 Erythrocyte distribution width (RBC) [Ratio] 13.0 % 11.6-14.6 [facility] Erythrocyte distribution wid th standard deviationOrdered By: Edilberto Loza on 01-14-2025 Erythrocyte distribution width (RBC) [Entitic vol] 42.9 fL 35.1-43.9 [facility] Erythrocyte distribution width (RBC) [Ratio] 42.9 fl 35.1-43.9 [facility] GFR/1.73 sq M.predicted jerson g non-blacks MDRD (S/P/Bld) [Vol rate/Area]Ordered By: Edilberto Loza on 01-14-2025 Estimated GFR (MDRD) Non-Af Amer 75 >60 [facility] Comment on above: mL/min/1.73m2 CKD-EP I Creatinine Equation (2020) Glomerular filtration rate ( GFR) estimation/1.73 sq m using serum, plasma, or whole bOrdered By: Edilberto Loza on 01-14-2025 GFR/1.73 sq M.predicted among non-blacks MDRD (S/P/Bld) [Vol rate/Area] 75 mL/min/{1.73_m2} >60 [facility] Comment on above: mL/min/1.73m2 CKD-EP I Creatinine Equation (2020) Hematocrit Auto (Bld) [Volum e fraction]Ordered By: Edilberto Loza on 01-14-2025 Hematocrit (Bld) [Volume fraction] 38.5 % 37-47 [facility] Hemoglobin measurementOrdere d By: Edilberto Loza on 01-14-2025 Hemoglobin (Bld) [Mass/Vol] 12.4 g/dL 12.0-15.0 [facility] Immature granulocytes/100 WB C Auto (Bld)Ordered By: Edilberto Loza on 01-14-2025 Immature granulocytes/100 WBC (Bld) 0.300 % 0.0-0.9 [facility] Comment on above: IG% - Immature Granu locytes (promyelocytes, myelocytes and metamyelocytes) > 1% indicates that a LEFT SHIFT is Present. LDL calc ser/plasOrdered By: Edilberto Loza on 01-14-2025 Cholesterol in LDL [Mass/Vol] 93 mg/dL [facility] Comment on above: Jjewlygtxg=422-378 m g/dL & Higher Wjbn=041 mg/dL or greater LDL Cholesterol, Calculated 93 mg/dL [facility] Comment on above: Ipqaqikkha=844-148 m g/dL & Higher Jmmh=620 mg/dL or greater Laboratory - Chemistry and C hemistry - challengeOrdered By: Edilberto Loza on 01-14-2025 AST [Catalytic activity/Vol] 32 U/L <32 [facility] Lipid Profileon 01-14-2025 CHOL:HDL 2.33 Normal [facility] Comment on above: Performed By: #### L 501.3684, L500.4100, L100.0100 #### [facility] [address] [place], [address] Cholesterol [Mass/Vol] 201 mg/dL Normal <=200 [facility] Comment on above: Result Comment: Chol esterol level, Desirable <200 mg/dL Borderline high cholesterol 200-239 mg/dL High cholesterol >=240 mg/dL Recommendations of the NCEP Adult Treatment Panel for the following risk-cutoff thresholds for the [place] population. Performed By: #### L 501.9520, L500.4100, L100.0100 #### [facility] [address] [place], [address] Cholesterol in HDL [Mass/Vol] 86 mg/dL Normal [facility] Comment on above: Result Comment: Maddy onal Cholesterol Education Program (NCEP) guidelines: <40 mg/dL: Low HDL-cholesterol (major risk factor for CHD) >= 60 mg/dL: High HDL-cholesterol (negative risk factor for CHD) HDL-cholesterol is affected by a number of factors, e.g. smoking, exercise, hormones, sex and age. Performed By: #### L 501.9520, L500.4100, L100.0100 #### [facility] [address] [place], [address] Cholesterol in LDL [Mass/Vol] 93 mg/dL Normal [facility] Comment on above: Result Comment: Bord lyktwr=018-092 mg/dL Higher Onwb=612 mg/dL or greater Performed By: #### L 501.9520, L500.4100, L100.0100 #### [facility] [address] [place], [address] Cholesterol in VLDL [Mass/Vol] 21 mg/dL Normal 5-40 [facility] Comment on above: Performed By: #### L 501.9520, L500.4100, L100.0100 #### [facility] [address] [place], [address] Triglyceride [Mass/Vol] 107 mg/dL Normal [facility] Comment on above: Result Comment: The drugs N-Acetylcysteine and Metamizole may falsely depress this assay. Normal range: <150 mg/dL Borderline High: 150-199 mg/dL High: 200-499 mg/dL Very High: >500 mg/dL Performed By: #### L 501.9585, L500.4100, L100.0100 #### [facility] [address] [place], [address] Lymphocytes Auto (Unsp spec) [#/Vol]Ordered By: Edilberto Loza on 01-14-2025 Lymphocytes (Bld) [#/Vol] 2.15 10*3/uL 0.83-4.51 [facility] Lymphocytes/100 WBC Auto (Un sp spec)Ordered By: Edilberto Loza on 01-14-2025 Lymphocytes/100 WBC (Bld) 30.1 % 19-41 [facility] MCV (mean corpuscular volume ) determinationOrdered By: Edilberto Loza on 01-14-2025 MCV (RBC) [Entitic vol] 90.8 fL 81-99 [facility] Mean corpuscular hemoglobin (MCH) determinationOrdered By: Edilberto Loza on 01-14-2025 MCH (RBC) [Entitic mass] 29.2 pg 27.0-32.0 [facility] Mean corpuscular hemoglobin concentration (MCHC) determinationOrdered By: Edilberto Loza on 01-14-2025 MCHC (RBC) [Mass/Vol] 32.2 g/dL 32-36 [facility] Mean platelet volume determi nationOrdered By: Edilberto Loza on 01-14-2025 Platelet mean volume (Bld) [Entitic vol] 10.9 fL 6.2-12.0 [facility] Monocyte percentageOrdered B y: Edilberto Loza on 01-14-2025 Monocytes/100 WBC (Bld) 8.8 % 0-10 [facility] Neutrophil percentageOrdered By: Edilberto Loza on 01-14-2025 Neutrophils/100 WBC (Bld) 58.6 % 47-70 [facility] Nucleated red blood cell per centageOrdered By: Edilberto Loza on 01-14-2025 Nucleated RBC/100 WBC (Bld) [Ratio] 0 % 0-5 [facility] Platelet countOrdered By: Ricardo Loza on 01-14-2025 Platelets (Bld) [#/Vol] 276 10*3/uL 150-450 [facility] Potassium (Unsp spec) [Mass/ Vol]Ordered By: Edilberto Loza on 01-14-2025 Potassium [Moles/Vol] 4.7 mmol/L 3.3-5.1 [facility] Potassium measurement (mass/ volume)Ordered By: Edilberto Loza on 01-14-2025 Potassium (Unsp spec) [Mass/Vol] 4.7 mmol/L 3.3-5.1 [facility] RBC Auto (Bld) [#/Vol]Ordere d By: Edilberto Loza on 01-14-2025 RBC (Bld) [#/Vol] 4.24 10*6/uL 4.2-5.4 [facility] Screening total cholesterol/ high density lipoprotein (HDL) cholesterol ratioOrdered By: Edilberto Loza on 01-14-2025 Cholesterol.total/Chol esterol in HDL [Mass ratio] 2.33 {ratio} [facility] Serum creatinine measurement (mass/volume)Ordered By: Edilberto Loza on 01-14-2025 Creatinine [Mass/Vol] 0.87 mg/dL 0.70-1.20 [facility] Serum globulin measurementOr dered By: Edilberto Loza on 01-14-2025 Globulin (S) [Mass/Vol] 3.3 g/dL 2.2-4.2 [facility] Serum glucose measurement (m ass/volume)Ordered By: Edilberto Loza on 01-14-2025 Glucose [Mass/Vol] 91 mg/dL 70-99 [facility] Serum or plasma alanine fisher otransferase (ALT) measurementOrdered By: Edilberto Loza on 01-14-2025 ALT [Catalytic activity/Vol] 37 U/L High <35 [facility] Serum or plasma albumin milena urement (mass/volume)Ordered By: Edilberto Loza on 01-14-2025 Albumin [Mass/Vol] 4.6 g/dL 3.4-4.8 [facility] Serum or plasma albumin/glob ulin mass ratioOrdered By: Edilberto Loza on 01-14-2025 Albumin/Globulin [Mass ratio] 1.4 {ratio} 0.9-2.4 [facility] Serum or plasma alkaline tana sphatase measurementOrdered By: Edilberto Loza 01-14-2025 ALP [Catalytic activity/Vol] 81 U/L 35-104 [facility] Serum or plasma calcium milena urement (mass/volume)Ordered By: Edilberto Loza 01-14-2025 Calcium [Mass/Vol] 9.9 mg/dL 7.6-11.0 [facility] Serum or plasma cholesterol in HDL measurement (mass/volume)Ordered By: Edilberto Loza 01-14-2025 Cholesterol in HDL [Mass/Vol] 86 mg/dL >40 [facility] Comment on above: National Cholesterol Education Program (NCEP) guidelines:<40 mg/dL: Low HDL-cholesterol (major risk factor for CHD)>= 60 mg/dL: High HDL-cholesterol (negative risk factor for CHD)HDL-cholesterol is affected by a number of factors, e.g. smoking, exercise, hormones, sex and age. Serum or plasma cholesterol measurement (mass/volume)Ordered By: Edilberto Loza 01-14-2025 Cholesterol [Mass/Vol] 201 mg/dL <201 [facility] Comment on above: Cholesterol level, D esirable <200 mg/dLBorderline high cholesterol 200-239 mg/dLHigh cholesterol >=240 mg/dLRecommendations of the NCEP Adult Treatment Panel for the following risk-cutoff thresholds for the [place] population. Serum or plasma urea nitroge n measurement (mass/volume)Ordered By: Edilberto Loza 01-14-2025 Urea nitrogen [Mass/Vol] 16 mg/dL 4-19 [facility] Sodium levelOrdered By: Edilberto Loza 01-14-2025 Sodium [Moles/Vol] 140 mmol/L 133-145 [facility] TSH DL <= 0.005 mIU/L QnOrde red By: Edilberto Loza 01-14-2025 Thyroid Stimulating Hormone (TSH) 0.654 uIU/mL 0.300-4.20 0 [facility] TSH Qn 0.654 uIU/mL 0.300-4.20 0 [facility] Thyroid Stim Hormone (TSH)on 01-14-2025 TSH 0.654 uIU/mL Normal 0.300-4.20 0 [facility] Comment on above: Performed By: #### L 501.9520, L500.4100, L100.0100 #### [facility] [place], [address] Total proteinOrdered By: Edilberto Loza on 01-14-2025 Protein [Mass/Vol] 7.9 g/dL 5.9-8.4 [facility] Triglycerides measurementOrd ered By: Edilberto Loza on 01-14-2025 Triglyceride [Mass/Vol] 107 mg/dL <199 [facility] Comment on above: The drugs N-Acetylcy steine and Metamizole may falsely depress this assay. Normal range: <150 mg/dLBorderline High: 150-199 mg/dLHigh: 200-499 mg/dLVery High: >500 mg/dL White blood cell (WBC) count Ordered By: Edilberto Loza on 01-14-2025 WBC (Bld) [#/Vol] 7.1 10*3/uL 4.4-11.0 [facility] PT D/C Summary (1)on 025 PT D/C Summary (1) [facility] [address] [place] [address] [address] [place] [address] / REHABILITATION SERVICES DISCHARGE SUMMARY MR#: [id number] Acct: [id number] Name: JAIME ONEILL Rep #: [id number] : 1965 58 From: Long Page PT, Cert. T, OCS Referring Dr.: Dr. Edilberto Loza MD Status: REG R Insurance: [facility] 09/11/18 SELF PAY INSURANCE Discharge Summary D/C [...] please feel free to call me at [phone]. Thank you for the referral of this patient. Sincerely, Long Page, PT, Cert MDT, OCS Balance/Gait/Functional tests Balance/Special Test Scores Oswestry Low Back Score: 28 Improvement % Improvement: 75 11/12/24 1451 CC: Dr. Edilberto Loza MD AUGUST Signed Normal [facility] TSH QnOrdered By: Edilberto ramos 10-01-2024 Thyroid Stimulating Hormone (TSH) 0.390 uIU/mL 0.358-3.74 0 [facility] Thyroid Stim Hormone (TSH)on 10-01-2024 TSH 0.390 uIU/mL Normal 0.358-3.74 0 [facility] Comment on above: Performed By: #### L 958.8430 #### [facility] [place], [address] XR SPINE LUMBOSACRAL 2 OR 3 VIEWSon [...] 03/17/2023 6:01:08 AM Ordering Provider: [facility] Absolute lymphocyte counton 03-26-2022 Lymphocytes Auto (Unsp spec) [#/Vol] 2.20 10*3/uL 0.83-4.51 [facility] Work Phone: Basophil percentageon 2021 Basophils/100 WBC (Bld) 0.9 % 0-1 [facility] Work Phone: Bilirubin [Mass/Vol] 0.30 mg/dL 0.20-1.00 [facility] Work Phone: Comment on above: For patients on eltr ombopag therapy, use of Dimension [place] TBIL is not recommended. Chloride [Moles/Vol] 103 mmol/L 98-107 [facility] Work Phone: [phone] Eosinophils/100 WBC (Bld) 5.0 % 0-5 [facility] Work Phone: Glucose [Mass/Vol] 91 mg/dL 74-106 [facility] Work Phone: Neutrophils (Bld) [#/Vol] 3.1 10*3/uL 2.0-7.7 [facility] Work Phone: Neutrophils/100 WBC (Bld) 48.6 % 47-70 [facility] Work Phone: Potassium [Moles/Vol] 4.3 mmol/L 3.5-5.1 [facility] Work Phone: Protein [Mass/Vol] 7.7 g/dL 6.4-8.2 [facility] Work Phone: Sodium [Moles/Vol] 137 mmol/L 136-145 [facility] Work Phone: WBC (Bld) [#/Vol] 6.4 10*3/uL 4.4-11.0 [facility] Work Phone: Blood erythrocytes count (nu mber/volume)on 03-26-2022 RBC (Bld) [#/Vol] 4.12 10*6/uL 4.2-5.4 [facility]: Blood hemoglobin measurement (mass/volume)on 03-26-2022 Hemoglobin (Bld) [Mass/Vol] 12.2 g/dL 12.0-15.0 [facility] Work Phone: Blood lymphocytes/100 leukoc yteson 03-26-2022 Lymphocytes/100 WBC (Bld) 34.6 % 19-41 [facility] Work Phone: Blood monocytes/100 leukocyt eson 03-26-2022 Monocytes/100 WBC (Bld) 10.4 % 0-10 [facility] Work Phone: Blood platelet mean volumeon 03-26-2022 Platelet mean volume (Bld) [Entitic vol] 11.1 fL 6.2-12.0 [facility] Work Phone: Culture, urineon 03-26-2022 Bacteria identified Cx Nom (U) Positive [facility] Work Phone: Determination of erythrocyte mean corpuscular volume (MCV)on 03-26-2022 MCV (RBC) [Entitic vol] 92.7 fL 81-99 [facility] Work Phone: Hematocrit Auto (Bld) [Volum e fraction]on 03-26-2022 Hematocrit (Bld) [Volume fraction] 38.2 % 37-47 [facility] Work Phone: Laboratory - Chemistry and C hemistry - challengeon 03-26-2022 ALP [Catalytic activity/Vol] 88 U/L 45-117 [facility] Work Phone: ALT [Catalytic activity/Vol] 46 U/L 13-56 [facility] Work Phone: CO2 [Moles/Vol] 29.0 mmol/L 21.0-32.0 [facility] Work Phone: Globulin (S) [Mass/Vol] 3.9 g/dL 2.2-4.2 [facility] Work Phone: Urea nitrogen/Creatinine [Mass ratio] 22.0 mg/mg 10-20 [facility] Work Phone: Laboratory - Hematology and Cell countson 03-26-2022 Erythrocyte distribution width (RBC) [Entitic vol] 44.4 fL 35.1-43.9 [facility] Work Phone: Erythrocyte distribution width (RBC) [Ratio] 13.1 % 11.6-14.6 [facility] Work Phone: Immature granulocytes/100 WBC (Bld) 0.500 % 0.0-0.9 [facility] Work Phone: Comment on above: IG% - Immature Granu locytes (promyelocytes, myelocytes and metamyelocytes) > 1% indicates that a LEFT SHIFT is Present. MCH (RBC) [Entitic mass] 29.6 pg 27.0-32.0 [facility] Work Phone: Nucleated RBC/100 WBC (Bld) [Ratio] 0 % 0-5 [facility] Work Phone: MCHC Auto (RBC) [Mass/Vol]on 03-26-2022 MCHC (RBC) [Mass/Vol] 31.9 g/dL 32-36 [facility] Work Phone: No Panel Informationon 03-26 Estimated GFR (MDRD) Amer 77 mL/min >60 [facility] Work Phone: Comment on above: GFR Calc Estimated GFR (MDRD) Non-Af Amer 64 mL/min >60 [facility] Work Phone: Comment on above: Non- GFR Calc Thyroid Stimulating Hormone (TSH) 2.99 uIU/mL 0.358-3.74 [facility] Work Phone: Vitamin D 25-Hydroxy 25.6 ng/mL [facility] Work Phone: Comment on above: Vitamin D 25(OH) Sta tus Range Deficiency <20 ng/mL (50nmol/L) Insufficiency 20 - 30 ng/mL (50 - 75 nmol/L) Sufficiency 30 - 100 ng/mL (75 - 250 nmol/L) Toxicity >100 ng/mL (>250 nmol/L) Platelets bldon 03-26-2022 Platelets (Bld) [#/Vol] 261 10*3/uL 150-450 [facility] Work Phone: Serum or plasma albumin milena urement (mass/volume)on 03-26-2022 Albumin [Mass/Vol] 3.8 g/dL 3.2-5.0 [facility] Work Phone: Serum or plasma albumin/glob ulin mass ratioon 03-26-2022 Albumin/Globulin [Mass ratio] 1.0 {ratio} 0.9-2.4 [facility] Work Phone: Serum or plasma calcium milena urement (mass/volume)on 03-26-2022 Calcium [Mass/Vol] 9.2 mg/dL 8.5-10.1 [facility] Work Phone: Serum or plasma creatinine m easurement (mass/volume)on 03-26-2022 Creatinine [Mass/Vol] 0.96 mg/dL 0.55-1.02 [facility] Work Phone: Comment on above: The validity of the calculated GFR & GFRAA in patients over 70 years has not been determined. Clinical correlation is essential. Serum or plasma urea nitroge n measurement (mass/volume)on 03-26-2022 Urea nitrogen [Mass/Vol] 21 mg/dL 7-18 [facility] Work Phone: Thin prep Papanicolaou smear with manual screeningon 03-26-2022 Thin prep Papanicolaou smear with manual screening 30 U/L 15-37 [facility] Work Phone: Thin prep Papanicolaou smear with manual screening 5 5-15 [facility] Work Phone: NOVEL CORONAVIRUS NASOPHARYN GEAL - [facility] SPECIMEN ONLYon 06-20-2020 SARS-COV-2 NOT DETECTED Normal NOT DETECTED [facility] [place] [facility] Comment on above: Order Comment: Submi tter Name: [facility] Agent Suspected: SARS-COV-2 This test was performed using real time PCR and has been approved for the qualitative detection of SARS-CoV-2 nucleic acid. The test has been authorized by the FDA under an emergency use authorization for use by authorized laboratories. Result Comment: Nega tive results do not preclude SARS-CoV-2 infection and should not be used as the sole basis for treatment or other patient management decisions. Optimum specimen types and timing for peak viral levels during infections caused by SARS-CoV-2 has not been determined. The possibility of a false negative result should especially be considered if the patient's recent exposures or clinical presentation suggest that SARS-CoV-2 infection is probable, and diagnostic tests for other causes of illness (e.g., other respiratory illness) are negative. Collection of a new specimen and re-testing may be necessary if the patient is critically ill or clinically deteriorating. Performed By: #### L [id number] #### [facility] (DEFAULT) [address] [place] [address] Basic Metabolic Panelon - Anion gap 7 mmol/L Normal [facility] Comment on above: Performed By: #### H EMDF, BMP3 ####The performing lab is in the report. Calcium 8.2 mg/dL Low 8.4-10.2 [facility] Comment on above: Performed By: #### H WILDF, BMP3 ####The performing lab is in the report. CO2 26 mmol/L Normal 22-30 [facility] Comment on above: Performed By: #### H EMDF, BMP3 ####The performing lab is in the report. Glucose mass conc 89 mg/dL Normal 70-100 [facility] Comment on above: Performed By: #### H EMDF, BMP3 ####The performing lab is in the report. Urea nitrogen 15 mg/dL Normal 7-20 [facility] Comment on above: Performed By: #### H WILDF, BMP3 ####The performing lab is in the report. Creatinine 0.62 mg/dL Normal 0.52-1.25 [facility] Comment on above: Performed By: #### H WILDF, BMP3 ####The performing lab is in the report. eGFR (black) mL/min/{1.73_m2} Normal >60 [facility] Comment on above: Performed By: #### H WILDF, BMP3 ####The performing lab is in the report. eGFR (non-black) mL/min/{1.73_m2} Normal >60 [facility] Comment on above: Result Comment: Sour ce- MDRD equation with creatinine calibration to IDMS(NKDEP)eGFR not recommended for drug dose adjustment Performed By: #### H WILDF, BMP3 ####The performing lab is in the report. Chloride 105 mmol/L Normal 98-107 [facility] Comment on above: Performed By: #### H EMDF, BMP3 ####The performing lab is in the report. Potassium molar conc 3.8 mmol/L Normal 3.5-5.1 [facility] Comment on above: Performed By: #### H EMDF, BMP3 ####The performing lab is in the report. Sodium 138 mmol/L Normal 137-145 [facility] Comment on above: Performed By: #### H EMDF, BMP3 ####The performing lab is in the report. Anion gap 6 mmol/L Normal [facility] Comment on above: Performed By: #### H EMDF, PT/AP, BMP3, MG3, PHOS3 ####The performing lab is in the report. Calcium 8.6 mg/dL Normal 8.4-10.2 [facility] Comment on above: Performed By: #### H EMDF, PT/AP, BMP3, MG3, PHOS3 ####The performing lab is in the report. CO2 28 mmol/L Normal 22-30 [facility] Comment on above: Performed By: #### H EMDF, PT/AP, BMP3, MG3, PHOS3 ####The performing lab is in the report. Glucose mass conc 102 mg/dL High 70-100 [facility] Comment on above: Performed By: #### H EMDF, PT/AP, BMP3, MG3, PHOS3 ####The performing lab is in the report. Urea nitrogen 14 mg/dL Normal 7-20 [facility] Comment on above: Performed By: #### H EMDF, PT/AP, BMP3, MG3, PHOS3 ####The performing lab is in the report. Creatinine 0.63 mg/dL Normal 0.52-1.25 [facility] Comment on above: Performed By: #### H EMDF, PT/AP, BMP3, MG3, PHOS3 ####The performing lab is in the report. eGFR (black) mL/min/{1.73_m2} Normal >60 [facility] Comment on above: Performed By: #### H EMDF, PT/AP, BMP3, MG3, PHOS3 ####The performing lab is in the report. eGFR (non-black) mL/min/{1.73_m2} Normal >60 [facility] Comment on above: Result Comment: Sour ce- MDRD equation with creatinine calibration to IDMS(NKDEP)eGFR not recommended for drug dose adjustment Performed By: #### H EMDF, PT/AP, BMP3, MG3, PHOS3 ####The performing lab is in the report. Potassium molar conc 3.7 mmol/L Normal 3.5-5.1 [facility] Comment on above: Performed By: #### H EMDF, PT/AP, BMP3, MG3, PHOS3 ####The performing lab is in the report. Sodium 140 mmol/L Normal 137-145 [facility] Comment on above: Performed By: #### H EMDF, PT/AP, BMP3, MG3, PHOS3 ####The performing lab is in the report. Chloride 106 mmol/L Normal 98-107 [facility] Comment on above: Performed By: #### H EMDF, PT/AP, BMP3, MG3, PHOS3 ####The performing lab is in the report. Drugs of Abuseon 01-21-2018 Oxycodone/Oxymorphine, Ur Negative [facility] Comment on above: Performed By: #### D RGA4 ####The performing lab is in the report. Phencyclidine (PCP), Ur Negative [facility] Comment on above: Result Comment: The [...] is in the report. Methadone, Ur Negative [facility] Comment on above: Performed By: #### D RGA4 ####The performing lab is in the report. Opiates, Ur Positive [facility] Comment on above: Performed By: #### D RGA4 ####The performing lab is in the report. Benzodiazepines, Ur Negative [facility] Comment on above: Performed By: #### D RGA4 ####The performing lab is in the report. Cocaine, Ur Negative [facility] Comment on above: Performed By: #### D RGA4 ####The performing lab is in the report. Barbiturates, Ur Negative [facility] Comment on above: Performed By: #### D RGA4 ####The performing lab is in the report. Amphetamines, Ur Negative Normal [facility] Comment on above: Performed By: #### D RGA4 ####The performing lab is in the report. Hemogram w/ Autodiffon 01-21 Abs Baso Cnt 0.0 10*3/uL Normal 0.0-0.2 [facility] Comment on above: Performed By: #### H EMDF, BMP3 ####The performing lab is in the report. Basophils/100 WBC Auto (Bld) 0.4 % Normal 0.0-2.0 [facility] Comment on above: Performed By: #### H WILDF, BMP3 ####The performing lab is in the report. Eosinophils 0.2 10*3/uL Normal 0.0-0.5 [facility] Comment on above: Performed By: #### H WILDF, BMP3 ####The performing lab is in the report. Eosinophils/100 leukocytes 2.4 % Normal 1.0-6.0 [facility] Comment on above: Performed By: #### H EMDF, BMP3 ####The performing lab is in the report. Erythrocyte distribution width Auto Ratio (RBC) 13.5 % Normal 11.5-14.5 [facility] Comment on above: Performed By: #### H EMDF, BMP3 ####The performing lab is in the report. Erythrocytes (RBC) 4.11 10*6/uL Normal 3.80-5.20 [facility] Comment on above: Performed By: #### H EMDF, BMP3 ####The performing lab is in the report. Granulocytes/100 WBC (Bld) 70.0 % Normal 40.0-80.0 [facility] Comment on above: Performed By: #### H EMDF, BMP3 ####The performing lab is in the report. Hematocrit (HCT) 37.4 % Normal 35.0-47.0 [facility] Comment on above: Performed By: #### H EMDF, BMP3 ####The performing lab is in the report. Hemoglobin mass conc (Bld) 12.4 g/dL Normal 11.7-16.0 [facility] Comment on above: Performed By: #### H EMDF, BMP3 ####The performing lab is in the report. Lymphocytes 1.7 10*3/uL Normal 1.0-4.3 [facility] Comment on above: Performed By: #### H EMDF, BMP3 ####The performing lab is in the report. Lymphocytes/100 leukocytes 18.6 % Low 20.0-40.0 [facility] Comment on above: Performed By: #### H EMDF, BMP3 ####The performing lab is in the report. MCH 30.1 pg Normal 26.0-34.0 [facility] Comment on above: Performed By: #### H EMDF, BMP3 ####The performing lab is in the report. MCHC mass conc (RBC) 33.0 % Normal 32.0-36.0 [facility] Comment on above: Performed By: #### H EMDF, BMP3 ####The performing lab is in the report. MCV 91.1 fL Normal 79.0-98.0 [facility] Comment on above: Performed By: #### H EMDF, BMP3 ####The performing lab is in the report. Monocytes 0.8 10*3/uL Normal 0.0-0.8 [facility] Comment on above: Performed By: #### H EMDF, BMP3 ####The performing lab is in the report. Monocytes/100 leukocytes 8.6 % Normal 2.0-10.0 [facility] Comment on above: Performed By: #### H EMDF, BMP3 ####The performing lab is in the report. Neutrophils 6.4 10*3/uL Normal 1.8-7.0 [facility] Comment on above: Performed By: #### H EMDF, BMP3 ####The performing lab is in the report. Platelet mean volume (PMV) 9.1 fL Normal 7.4-10.4 [facility] Comment on above: Performed By: #### H EMDF, BMP3 ####The performing lab is in the report. Platelets 214 10*3/uL Normal 140-440 [facility] Comment on above: Performed By: #### H EMDF, BMP3 ####The performing lab is in the report. WBC (Leukocytes) 9.2 10*3/uL Normal 3.6-10.7 [facility] Comment on above: Performed By: #### H EMDF, BMP3 ####The performing lab is in the report. Magnesiumon 01-21-2018 Magnesium 1.9 mg/dL Normal 1.6-2.3 [facility] Comment on above: Performed By: #### H EMDF, PT/AP, BMP3, MG3, PHOS3 ####The performing lab is in the report. Phosphoruson 01-21-2018 Phosphate 3.2 mg/dL Normal 2.5-4.5 [facility] Comment on above: Performed By: #### H EMDF, PT/AP, BMP3, MG3, PHOS3 ####The performing lab is in the report. Protimeon 01-21-2018 aPTT 25.7 s Normal 20.0-30.5 [facility] Comment on above: Result Comment: NOTE : The therapeutic time for Heparin anticoagulation,based on Xa activity inhibition, is an APTT of 46-80seconds. Performed By: #### H EMDF, PT/AP, BMP3, MG3, PHOS3 ####The performing lab is in the report. INR Coag RelTime (PPP) 0.9 {INR} Normal 0.9-1.1 [facility] Comment on above: Result Comment: Randy [...] Coag time (PPP) 9.5 s Normal 9.0-12.0 [facility] Comment on above: Result Comment: . Performed By: #### H EMDF, PT/AP, BMP3, MG3, PHOS3 ####The performing lab is in the report. TS GELon 01-21-2018 TS GEL ABO Group: O Rh, Gel: NEG Antibody Screen Gel: NEG Normal [facility] Comment on above: Performed By: #### T SGL ####[place] [address] Urinalysis,Macroon 8 Bilirubin (direct) Negative Normal Negative [facility] Comment on above: Performed By: #### U AMAC ####The performing lab is in the report. Ketone,Urine Trace Normal Negative [facility] Comment on above: Performed By: #### U AMAC ####The performing lab is in the report. Occult Blood,Ur 25 {RBC}/uL Normal Negative [facility] Comment on above: Performed By: #### U AMAC ####The performing lab is in the report. Specific [place],Urine 1.020 Normal 1.005 -1.03 0 [facility] Comment on above: Performed By: #### U AMAC ####The performing lab is in the report. Total Protein,Urine Negative Normal Negative [facility] Comment on above: Performed By: #### U AMAC ####The performing lab is in the report. Urine, appearance clear Normal Clear [facility] Comment on above: Performed By: #### U AMAC ####The performing lab is in the report. Urine, color yellow Normal Lt. Yellow [facility] Comment on above: Performed By: #### U AMAC ####The performing lab is in the report. Urine, glucose presence NORM Normal Negative [facility] Comment on above: Performed By: #### U AMAC ####The performing lab is in the report. Urine, nitrite presence Negative Normal Negative [facility] Comment on above: Performed By: #### U AMAC ####The performing lab is in the report. Urine, pH 7.0 [pH] Normal 5.0-8.0 [facility] Comment on above: Performed By: #### U AMAC ####The performing lab is in the report. Urine, urobilinogen NORM Normal 0-1 [facility] Comment on above: Performed By: #### U AMAC ####The performing lab is in the report. WBC (Leukocytes) Negative Normal Negative [facility] Comment on above: Performed By: #### U AMAC ####The performing lab is in the report. CR Chest 1 View Frontalon CR Chest 1 View Frontal Patient Name: JAIME ONEILL Diagnostic Radiology Exam Date/Time 01/20/2018 21:38:42 EDT Exam CR Chest 1 View Frontal Ordering Physician MD IVY CRAIG Accession Number [id number] CPT4 Codes 55681 () Reason For Exam Trauma Report HISTORY: [...] Transcribed Date and Time: 01/20/2018 9:48 Normal [facility] CR Shoulder 2+ Views Righton 01-20-2018 CR Shoulder 2+ Views Right Patient Name: JAIME ONEILL Diagnostic Radiology Exam Date/Time 01/20/2018 21:38:29 EDT Exam CR Shoulder 2+ Views Right Ordering Physician DO COLBERT DORSEY R Accession Number [id number] CPT4 Codes 16359 () Reason For Exam pain Report HISTORY: [...] Transcribed Date and Time: 01/20/2018 9:48 Normal [facility] Hemogram w/ Autodiffon 01-20 Abs Baso Cnt 0.1 10*3/uL Normal 0.0-0.2 [facility] Comment on above: Performed By: #### H EMDF, PT/AP, BMP3, MG3, PHOS3 ####The performing lab is in the report. Basophils/100 WBC Auto (Bld) 0.8 % Normal 0.0-2.0 [facility] Comment on above: Performed By: #### H EMDF, PT/AP, BMP3, MG3, PHOS3 ####The performing lab is in the report. Eosinophils 0.2 10*3/uL Normal 0.0-0.5 [facility] Comment on above: Performed By: #### H EMDF, PT/AP, BMP3, MG3, PHOS3 ####The performing lab is in the report. Eosinophils/100 leukocytes 1.7 % Normal 1.0-6.0 [facility] Comment on above: Performed By: #### H EMDF, PT/AP, BMP3, MG3, PHOS3 ####The performing lab is in the report. Erythrocyte distribution width Auto Ratio (RBC) 13.1 % Normal 11.5-14.5 [facility] Comment on above: Performed By: #### H EMDF, PT/AP, BMP3, MG3, PHOS3 ####The performing lab is in the report. Erythrocytes (RBC) 4.16 10*6/uL Normal 3.80-5.20 [facility] Comment on above: Performed By: #### H EMDF, PT/AP, BMP3, MG3, PHOS3 ####The performing lab is in the report. Granulocytes/100 WBC (Bld) 70.8 % Normal 40.0-80.0 [facility] Comment on above: Performed By: #### H EMDF, PT/AP, BMP3, MG3, PHOS3 ####The performing lab is in the report. Hematocrit (HCT) 37.4 % Normal 35.0-47.0 [facility] Comment on above: Performed By: #### H EMDF, PT/AP, BMP3, MG3, PHOS3 ####The performing lab is in the report. Hemoglobin mass conc (Bld) 12.7 g/dL Normal 11.7-16.0 [facility] Comment on above: Performed By: #### H EMDF, PT/AP, BMP3, MG3, PHOS3 ####The performing lab is in the report. Lymphocytes 1.8 10*3/uL Normal 1.0-4.3 [facility] Comment on above: Performed By: #### H EMDF, PT/AP, BMP3, MG3, PHOS3 ####The performing lab is in the report. Lymphocytes/100 leukocytes 16.8 % Low 20.0-40.0 [facility] Comment on above: Performed By: #### H EMDF, PT/AP, BMP3, MG3, PHOS3 ####The performing lab is in the report. MCH 30.4 pg Normal 26.0-34.0 [facility] Comment on above: Performed By: #### H EMDF, PT/AP, BMP3, MG3, PHOS3 ####The performing lab is in the report. MCHC mass conc (RBC) 33.9 % Normal 32.0-36.0 [facility] Comment on above: Performed By: #### H EMDF, PT/AP, BMP3, MG3, PHOS3 ####The performing lab is in the report. MCV 89.8 fL Normal 79.0-98.0 [facility] Comment on above: Performed By: #### H EMDF, PT/AP, BMP3, MG3, PHOS3 ####The performing lab is in the report. Monocytes 1.1 10*3/uL High 0.0-0.8 [facility] Comment on above: Performed By: #### H EMDF, PT/AP, BMP3, MG3, PHOS3 ####The performing lab is in the report. Monocytes/100 leukocytes 9.9 % Normal 2.0-10.0 [facility] Comment on above: Performed By: #### H EMDF, PT/AP, BMP3, MG3, PHOS3 ####The performing lab is in the report. Neutrophils 7.8 10*3/uL High 1.8-7.0 [facility] Comment on above: Performed By: #### H EMDF, PT/AP, BMP3, MG3, PHOS3 ####The performing lab is in the report. Platelet mean volume (PMV) 9.2 fL Normal 7.4-10.4 [facility] Comment on above: Performed By: #### H EMDF, PT/AP, BMP3, MG3, PHOS3 ####The performing lab is in the report. Platelets 213 10*3/uL Normal 140-440 [facility] Comment on above: Performed By: #### H EMDF, PT/AP, BMP3, MG3, PHOS3 ####The performing lab is in the report. WBC (Leukocytes) 11.0 10*3/uL High 3.6-10.7 [facility] Comment on above: Performed By: #### H EMDF, PT/AP, BMP3, MG3, PHOS3 ####The performing lab is in the report. Vital Signs Date Time Vital Sign Value Performing Clinician Faci lity 08-09-2025 13:47-0400 Body height 165.[address] Edilberto Loza MD Work Phone: [facility] 08-09-2025 13:47-0400 Body mass index (BMI) [Ratio] 38 kg/m2 Dr. Edilberto Loza MD Work Phone: [facility] 08-09-2025 13:47-0400 Body temperature 97.9 [degF] Dr. Edilberto Loza MD Work Phone: [facility] 08-09-2025 13:47-0400 Body weight 103.[address] Edilberto Loza MD Work Phone: [facility] 08-09-2025 13:47-0400 Diastolic blood pressure 89 mm[Hg] Dr. Edilberto Loza MD Work Phone: [facility] 08-09-2025 13:47-0400 Heart rate 75 /min Dr. Edilberto Loza MD Work Phone: 9(486)578-950584 [place] [address] 08-09-2025 13:47-0400 Respiratory rate 18 /min Dr. Edilberto Loza MD Work Phone: 0(741)902-374484 [place] [address] 08-09-2025 13:47-0400 SaO2% (BldA) [Mass fraction] 98 % Dr. Edilberto Loza MD Work Phone: 3(440)884-152584 [place] [address] 08-09-2025 13:47-0400 Systolic blood pressure 139 mm[Hg] Dr. Edilberto Loza MD Work Phone: 6(451)119-584636 [place] [address] 08-07-2025 11:25-0400 Body temperature 98.3 [degF] Dr. Edilberto Loza MD Work Phone: 4(704)243-132936 [place] [address] 08-07-2025 11:25-0400 Diastolic blood pressure 81 mm[Hg] Dr. Edilberto Loza MD Work Phone: 0(561)134-511536 [place] [address] 08-07-2025 11:25-0400 Heart rate 65 /min Dr. Edilberto Loza MD Work Phone: 5(654)864-634536 [place] [address] 08-07-2025 11:25-0400 Respiratory rate 16 /min Dr. Edilberto Loza MD Work Phone: 7(814)386-537836 [place] [address] 08-07-2025 11:25-0400 SaO2% (BldA) [Mass fraction] 99 % Dr. Edilberto Loza MD Work Phone: 4(173)593-107536 [place] [address] 08-07-2025 11:25-0400 Systolic blood pressure 134 mm[Hg] Dr. Edilberto Loza MD Work Phone: 5(245)017-714036 [place] [address] 08-07-2025 07:24-0400 Body mass index (BMI) [Ratio] 38 kg/m2 Dr. Edilberto Loza MD Work Phone: 8(215)614-198084 [place] [address] 08-07-2025 07:24-0400 Body weight 103.[address] Edilberto Loza MD Work Phone: 8(733)333-218336 [place] [address] 08-02-2025 09:54-0400 Body height 165.1 cm Jordon Santiago DO Work Phone: [employer] 08-02-2025 09:54-0400 Body mass index (BMI) [Ratio] 38.07 kg/m2 Jordon Pozsgay DO Work Phone: [employer] 08-02-2025 09:54-0400 Body temperature 97.2 [degF] Jordon Pozsgay DO Work Phone: [employer] 08-02-2025 09:54-0400 Body weight 103.78 kg Jordon Pozsgay DO Work Phone: [employer] Comment on above: [facility] 08-02-2025 09:54-0400 Diastolic blood pressure 76 mm[Hg] Jordon Pozsgay DO Work Phone: [employer] 08-02-2025 09:54-0400 Heart rate 76 /min Jordon Pozsgay DO Work Phone: [employer] 08-02-2025 09:54-0400 Systolic blood pressure 116 mm[Hg] Jordon Pozsgay DO Work Phone: [employer] 07-05-2025 08:35-0400 Body height 165.1 cm Jordon Pozsgay DO Work Phone: [employer] 07-05-2025 08:35-0400 Body mass index (BMI) [Ratio] 41.04 kg/m2 Jordon Pozsgay DO Work Phone: [employer] 07-05-2025 08:35-0400 Body temperature 97.11 [degF] Jordon Pozsgay DO Work Phone: [employer] 07-05-2025 08:35-0400 Body weight 111.86 kg Jordon Pozsgay DO Work Phone: [employer] Comment on above: [facility] 07-05-2025 08:35-0400 Diastolic blood pressure 73 mm[Hg] Jordon Pozsgay DO Work Phone: [employer] 07-05-2025 08:35-0400 Heart rate 86 /min Jordon Pozsgay DO Work Phone: [employer] 07-05-2025 08:35-0400 SaO2% (BldA) [Mass fraction] 98 % Jordon Pozsgay DO Work Phone: [facility] [employer] 07-05-2025 08:35-0400 Systolic blood pressure 119 mm[Hg] Jordon Pozsgay DO Work Phone: [employer] 07-01-2025 12:22-0400 Body temperature 96.91 [degF] Jordon Pozsgay DO Work Phone: [employer] 07-01-2025 12:22-0400 Diastolic blood pressure 70 mm[Hg] Jordon Pozsgay DO Work Phone: [employer] 07-01-2025 12:22-0400 Heart rate 66 /min Jordon Pozsgay DO Work Phone: [employer] 07-01-2025 12:22-0400 Respiratory rate 17 /min Jordon Pozsgay DO Work Phone: [employer] 07-01-2025 12:22-0400 SaO2% (BldA) [Mass fraction] 95 % Jordon Pozsgay DO Work Phone: [employer] 07-01-2025 12:22-0400 Systolic blood pressure 125 mm[Hg] Jordon Pozsgay DO Work Phone: [employer] 06-30-2025 05:36-0400 Body height 165.1 cm Jordon Pozsgay DO Work Phone: [employer] 06-30-2025 05:36-0400 Body mass index (BMI) [Ratio] 42.43 kg/m2 Jordon Pozsgay DO Work Phone: [employer] 06-30-2025 05:36-0400 Body weight 115.67 kg Jordon Pozsgay DO Work Phone: [employer] 06-07-2025 09:08-0400 Body height 165.1 cm Jordon Pozsgay DO Work Phone: [facility] [employer] 06-07-2025 09:08-0400 Body mass index (BMI) [Ratio] 42.13 kg/m2 Jordon Pozsgay DO Work Phone: [facility] [employer] 06-07-2025 09:08-0400 Body temperature 97.5 [degF] Jordon Pozsgay DO Work Phone: [facility] [employer] 06-07-2025 09:08-0400 Body weight 114.85 kg Jordon Pozsgay DO Work Phone: [facility] [employer] 06-07-2025 09:08-0400 Diastolic blood pressure 79 mm[Hg] Jordon Pozsgay DO Work Phone: [facility] [employer] 06-07-2025 09:08-0400 Heart rate 73 /min Jordon Pozsgay DO Work Phone: [facility] [employer] 06-07-2025 09:08-0400 Systolic blood pressure 120 mm[Hg] Jordon Pozsgay DO Work Phone: [facility] [employer] 04-08-2025 13:00-0400 Body mass index (BMI) [Ratio] 41.5 kg/m2 Trish Bhatia DIETICIAN - MECHANICAL INSULATOR Work Phone: [facility] [employer] 04-08-2025 13:00-0400 Body temperature 97.5 [degF] Trish Bhatia DIETICIAN - MECHANICAL INSULATOR Work Phone: [facility] [employer] 04-08-2025 13:00-0400 Body weight 113.13 kg Trish Bhatia DIETICIAN - MECHANICAL INSULATOR Work Phone: [facility] [employer] Comment on above: [facility] 04-08-2025 13:00-0400 Diastolic blood pressure 77 mm[Hg] Trish Bhatia DIETICIAN - MECHANICAL INSULATOR Work Phone: [facility] [employer] 04-08-2025 13:00-0400 Heart rate 84 /min Trish Bhatia DIETICIAN - MECHANICAL INSULATOR Work Phone: [facility] [employer] 04-08-2025 13:00-0400 Respiratory rate 19 /min Trish Bhatia DIETICIAN - MECHANICAL INSULATOR Work Phone: [facility] [employer] 04-08-2025 13:00-0400 Systolic blood pressure 124 mm[Hg] Trish Bhatia DIETICIAN - MECHANICAL INSULATOR Work Phone: [facility] 04-08-2025 10:34-0400 Body height 165.1 cm Jf Roe APRN - MECHANICAL INSULATOR Work Phone: [facility] [employer] 04-08-2025 10:34-0400 Body mass index (BMI) [Ratio] 41.44 kg/m2 Jf Roe APRN - MECHANICAL INSULATOR Work Phone: [facility] [employer] 04-08-2025 10:34-0400 Body weight 112.95 kg Jf Roe APRN - MECHANICAL INSULATOR Work Phone: [facility] [employer] 04-08-2025 10:34-0400 Diastolic blood pressure 82 mm[Hg] Jf Roe APRN - MECHANICAL INSULATOR Work Phone: [facility] 04-08-2025 10:34-0400 Heart rate 69 /min Jf Roe APRN - MECHANICAL INSULATOR Work Phone: [facility] [employer] 04-08-2025 10:34-0400 Systolic blood pressure 108 mm[Hg] Jf Roe APRN - MECHANICAL INSULATOR Work Phone: [facility] [employer] 03-25-2025 14:48-0400 Diastolic blood pressure 73 mm[Hg] Jordon Pozsgay DO Work Phone: [facility] [employer] 03-25-2025 14:48-0400 Heart rate 71 /min Jordon Pozsgay DO Work Phone: [facility] [employer] 03-25-2025 14:48-0400 Respiratory rate 18 /min Jordon Pozsgay DO Work Phone: [facility] [employer] 03-25-2025 14:48-0400 SaO2% (BldA) [Mass fraction] 98 % Jordon Pozsgay DO Work Phone: [facility] [employer] 03-25-2025 14:48-0400 Systolic blood pressure 133 mm[Hg] Jordon Santiago DO Work Phone: [facility] [employer] 03-25-2025 12:58-0400 Body height 165.1 cm Jordon Santiago DO Work Phone: [facility] [employer] 03-25-2025 12:58-0400 Body mass index (BMI) [Ratio] 41.1 kg/m2 Jordon Santiago DO Work Phone: [facility] [employer] 03-25-2025 12:58-0400 Body temperature 97.81 [degF] Jordon Santiago DO Work Phone: [facility] [employer] 03-25-2025 12:58-0400 Body weight 112.04 kg Jordon Santiago DO Work Phone: [facility] [employer] 03-10-2025 08:42-0400 Body height 165.1 cm Trish Bhatia DIETICIAN - MECHANICAL INSULATOR Work Phone: [facility] [employer] Comment on above: [facility] 03-10-2025 08:42-0400 Body mass index (BMI) [Ratio] 41.17 kg/m2 Trish Bhatia DIETICIAN - MECHANICAL INSULATOR Work Phone: [facility] 03-10-2025 08:42-0400 Body temperature 96.91 [degF] Trish Bhatia DIETICIAN - MECHANICAL INSULATOR Work Phone: [facility] 03-10-2025 08:42-0400 Body weight 112.22 kg Trish Bhatia DIETICIAN - MECHANICAL INSULATOR Work Phone: [facility] 03-10-2025 08:42-0400 Diastolic blood pressure 81 mm[Hg] Trish Bhatia DIETICIAN - MECHANICAL INSULATOR Work Phone: [facility] 03-10-2025 08:42-0400 Heart rate 63 /min Trish Bhatia DIETICIAN - MECHANICAL INSULATOR Work Phone: [facility] [employer] 03-10-2025 08:42-0400 Respiratory rate 16 /min Trish Bhatia DIETICIAN - MECHANICAL INSULATOR Work Phone: [facility] [employer] 03-10-2025 08:42-0400 Systolic blood pressure 137 mm[Hg] Trish Bhatia DIETICIAN - MECHANICAL INSULATOR Work Phone: [facility] [employer] 02-25-2025 09:48-0400 Body height 165.1 cm Wmi Schedule [facility] [employer] 02-25-2025 09:48-0400 Body mass index (BMI) [Ratio] 41.6 kg/m2 Wmi Schedule [facility] [employer] 02-25-2025 09:48-0400 Body weight 113.4 kg Wmi Schedule [facility] [employer] 02-19-2025 10:24-0400 Body height 165.1 cm Cricket Gerstenmaier PA-C Work Phone: [facility] [employer] 02-19-2025 10:24-0400 Body mass index (BMI) [Ratio] 41.77 kg/m2 Cricket Gerstenmaier PA-C Work Phone: [facility] [employer] 02-19-2025 10:24-0400 Body weight 113.85 kg Cricket Gerstenmaier PA-C Work Phone: [facility] [employer] 02-19-2025 10:24-0400 Diastolic blood pressure 75 mm[Hg] Cricket Gerstenmaier PA-C Work Phone: [facility] [employer] 02-19-2025 10:24-0400 Heart rate 76 /min Cricket Gerstenmaier PA-C Work Phone: [facility] [employer] 02-19-2025 10:24-0400 Respiratory rate 14 /min Cricket Gerstenmaier PA-C Work Phone: [facility] [employer] 02-19-2025 10:24-0400 SaO2% (BldA) [Mass fraction] 95 % Cricket Gerstenmaier PA-C Work Phone: [facility] [employer] Comment on above: 02-19-2025 10:24-0400 Systolic blood pressure 123 mm[Hg] Cricket Gerstenmaier PA-C Work Phone: [facility] [employer] 03-26-2025 10:41-0400 Body height 165.1 cm Trish Bhatia DIETICIAN - MECHANICAL INSULATOR Work Phone: [facility] [employer] Comment on above: [facility] 02-03-2025 10:41-0400 Body mass index (BMI) [Ratio] 41.44 kg/m2 Trish Bhatia DIETICIAN - MECHANICAL INSULATOR Work Phone: [facility] 02-03-2025 10:41-0400 Body temperature 97.5 [degF] Trish Bhatia DIETICIAN - MECHANICAL INSULATOR Work Phone: [facility] [employer] 02-03-2025 10:41-0400 Body weight 112.95 kg Trish Bhatia DIETICIAN - MECHANICAL INSULATOR Work Phone: [facility] [employer] 02-03-2025 10:41-0400 Diastolic blood pressure 76 mm[Hg] Trish Bhatia DIETICIAN - MECHANICAL INSULATOR Work Phone: [facility] [employer] 02-03-2025 10:41-0400 Heart rate 94 /min Trish Bhatia DIETICIAN - MECHANICAL INSULATOR Work Phone: [facility] [employer] 02-03-2025 10:41-0400 Respiratory rate 18 /min Trish Bhatia DIETICIAN - MECHANICAL INSULATOR Work Phone: [facility] [employer] 02-03-2025 10:41-0400 Systolic blood pressure 116 mm[Hg] Trish Bhatia DIETICIAN - MECHANICAL INSULATOR Work Phone: [facility] [employer] 01-25-2025 09:53-0400 Body height 165.1 cm Jordon Goodesgrafat DO Work Phone: [facility] [employer] 01-25-2025 09:53-0400 Body mass index (BMI) [Ratio] 41.54 kg/m2 Jordon Aguileratomersgay DO Work Phone: [facility] [employer] 01-25-2025 09:53-0400 Body temperature 97.5 [degF] Jordon Goodesgrafat DO Work Phone: [facility] [employer] 01-25-2025 09:53-0400 Body weight 113.22 kg Jordon Pozsgay DO Work Phone: [facility] [employer] 01-25-2025 09:53-0400 Diastolic blood pressure 86 mm[Hg] Jordon Pozsgay DO Work Phone: [facility] [employer] 01-25-2025 09:53-0400 Heart rate 84 /min Jordon Pozsgay DO Work Phone: [facility] [employer] 01-25-2025 09:53-0400 Respiratory rate 16 /min Jordon Pozsgay DO Work Phone: [facility] [employer] 01-25-2025 09:53-0400 Systolic blood pressure 137 mm[Hg] Jordon Pozsgay DO Work Phone: [facility] [employer] 07-28-2024 11:19-0400 Body mass index (BMI) [Ratio] 40.41 kg/m2 Karie Fistek DIETICIAN-MECHANICAL INSULATOR Work Phone: [facility] 07-28-2024 11:19-0400 Body weight 109.32 kg Karie Fistek DIETICIAN-MECHANICAL INSULATOR Work Phone: [facility] 02-19-2024 10:42-0400 Body height 164.5 cm Karie Fistek DIETICIAN-MECHANICAL INSULATOR Work Phone: [facility] 02-19-2024 10:42-0400 Body mass index (BMI) [Ratio] 41.25 kg/m2 Karie Fistek DIETICIAN-MECHANICAL INSULATOR Work Phone: [facility] 02-19-2024 10:42-0400 Body weight 111.58 kg Karie Fistek DIETICIAN-MECHANICAL INSULATOR Work Phone: [facility] 02-19-2024 10:42-0400 Diastolic blood pressure 79 mm[Hg] Karie Fistek DIETICIAN-MECHANICAL INSULATOR Work Phone: [facility] 02-19-2024 10:42-0400 Heart rate 82 /min Karie Fistek DIETICIAN-MECHANICAL INSULATOR Work Phone: [facility] 02-19-2024 10:42-0400 Systolic blood pressure 155 mm[Hg] Karie Fallon DIETICIAN-MECHANICAL INSULATOR Work Phone: [facility] 10-15-2023 09:25-0500 Body height 164.5 cm Karie Alonsoek DIETICIAN-MECHANICAL INSULATOR Work Phone: [facility] 10-15-2023 09:25-0500 Body mass index (BMI) [Ratio] 41.42 kg/m2 Karie Fallon DIETICIAN-MECHANICAL INSULATOR Work Phone: [facility] 10-15-2023 09:25-0500 Body weight 112.04 kg Karie Fistek DIETICIAN-MECHANICAL INSULATOR Work Phone: [facility] Comment on above: START WT: 256 IDEAL WT: 149 START EXCESS : 107TOTAL WT LOSS: 9 EWL: 8 % HT: 64.75 INCHES 10-15-2023 09:25-0500 Diastolic blood pressure 69 mm[Hg] Karie Alonsoek DIETICIAN-MECHANICAL INSULATOR Work Phone: [facility] 10-15-2023 09:25-0500 Heart rate 90 /min Karie Alonsoek DIETICIAN-MECHANICAL INSULATOR Work Phone: [facility] 10-15-2023 09:25-0500 Systolic blood pressure 120 mm[Hg] Karie Fistek DIETICIAN-MECHANICAL INSULATOR Work Phone: [facility] Encounters Encounter Date Encounter Type Care Provider Facility Start: 10-01-2025 ambulatory Agus Islas Facility :[facility] Start: 09-14-2025 End: 09-14-2025 ambulatory Agus Islas Facility:[facility] Start: 09-09-2025 Encounter for other preprocedural examination BRAYAN DONIS [facility] Start: 09-02-2025 End: 09-02-2025 ambulatory Edilberto Chi [place] Facility:[facility] Start: 08-17-2025 ambulatory Agus Islas Facility :[facility] Start: 08-17-2025 Non-patient / Non-visit Dr. Agus Islas MD -[facility] Start: 08-17-2025 End: 08-17-[address] Agus Islas MD -[facility] Work Phone: Start: 08-17-2025 End: 08-17-2025 ambulatory Agus Islas Facility:[facility] Start: 08-10-2025 End: 08-10-[address] Edilberto Loza MD Work Phone: -Laboratory Phy Office 3rd Flr Start: 08-10-2025 End: 08-10-[address] Edilberto Loza MD -Laboratory Phy Office 3rd Flr Start: 08-09-2025 End: 08-09-[address] Agus Islas MD -[facility] Work Phone: Start: 08-09-2025 End: 08-10-[address] Edilberto Loza MD Work Phone: -[facility] Start: 08-07-2025 End: 08-07-2025 Emergency department patient visit Dr. Edilberto Loza MD Work Phone: -Emergency Department Work Phone: Start: 08-02-2025 End: 08-02-2025 Postop follow up visit related to original px Jordon Santiago DO Work Phone: [facility] [place] Comment on above: H/O gastric bypass ( Primary Dx); Deficiency of multiple nutrient elements; Deficiency of other specified B group vitamins; Class 2 severe obesity due to excess calories with serious comorbidity and body mass index (BMI) of 38.0 to 38.9 in adult (HCC); Gastroesophageal reflux disease without esophagitis Start: 08-02-2025 End: 08-02-2025 ambulatory JORDON GOODERAFAT [facility] Start: 07-27-2025 End: 07-27-[address] Edilberto Loza MD Work Phone: -[facility] Start: 07-27-2025 End: 07-27-[address] Edilberto Loza MD -[facility] Work Phone: Start: 07-27-2025 End: 07-27-2025 ambulatory Edilberto [facility] Facility:[facility] Start: 07-23-2025 End: 07-23-[address] Edilberto Loza MD Work Phone: -Outpatient Breast Imaging Start: 07-23-2025 End: 07-23-[address] Edilberto Loza MD -Outpatient Breast Imaging Work Phone: Start: 07-23-2025 End: 07-28-2025 Telephone encounter Ana Wasserman RD [facility] [place] Comment on above: Abnormal Lab (Outsid e Labs [facility] 07-08-25:/Elevated AST: 42/Elevated ALT: 66/Elevated B12: 1798/Elevated iron: 41) Start: 07-23-2025 End: 07-23-2025 ambulatory [facility] [place] Facility:[facility] Start: 07-17-2025 End: 07-17-[address] Edilberto Loza MD Work Phone: -Cat Scan [facility] Start: 07-17-2025 End: 07-17-[address] Edilberto Loza MD -Cat Scan [facility] Work Phone: Start: 07-17-2025 End: 07-17-2025 [facility] Start: 07-08-2025 End: 07-08-[address] Edilberto Loza MD Work Phone: -Laboratory Phy Office 3rd Flr Start: 07-08-2025 End: 07-08-[address] Edilberto Loza MD Work Phone: -Laboratory Phy Office 3rd Flr Start: 07-08-2025 End: 07-08-2025 [facility] Start: 07-05-2025 End: 07-05-2025 Postop follow up visit related to original px Jordon Santiago DO Work Phone: [facility] [employer] [facility] [place] Comment on above: H/O gastric bypass ( Primary Dx); Deficiency of multiple nutrient elements; Deficiency of other specified B group vitamins; Morbid obesity with BMI of 40.0-44.9, adult (HCC); Gastroesophageal reflux disease without esophagitis Start: 07-05-2025 End: 07-05-2025 ambulatory Asker [facility] [employer] [facility] Start: 06-30-2025 End: 07-01-2025 Evaluation and management of inpatient Jordon Santiago DO Work Phone: [facility] Surgical Progressive Care Unit PCU H6 Comment on above: Obesity, morbid, BMI 40.0-49.9 (HCC) (Primary Dx); Morbid obesity with BMI of 40.0-44.9, adult (HCC); Postoperative pain Start: 06-22-2025 End: 06-22-2025 ambulatory Asker [facility] Start: 06-07-2025 End: 06-07-2025 Office outpatient visit 25 minutes Jordon Santiago DO Work Phone: [facility] [employer] [place] Comment on above: Morbid obesity with BMI of 40.0-44.9, adult (HCC) (Primary Dx); Gastroesophageal reflux disease without esophagitis; Hypothyroidism, unspecified type Start: 06-07-2025 End: 06-07-2025 ambulatory Asker [facility] Start: 05-25-2025 End: 05-25-2025 ambulatory Bibiana Ramirez APRN - MECHANICAL INSULATOR Work Phone: [facility] [employer] [place] [place] Comment on above: Obesity, morbid, BMI 40.0-49.9 (HCC) (Primary Dx) Start: 05-11-2025 End: 05-25-2025 Telephone encounter Stephanie Vidal LPN [facility] [employer] [place] Comment on above: Surgery Scheduling ( [facility]ERY SCHEDULING) Start: 05-05-2025 Encounter for preprocedural laboratory examination [facility] Start: 04-30-2025 End: 04-30-[address] Edilberto Loza MD Work Phone: [facility] Work Phone: Start: 04-30-2025 End: 04-30-[address] Edilberto Loza MD Work Phone: -Laboratory Work Phone: Start: 04-30-2025 End: 04-30-2025 ambulatory Edilberto Jomar Dago Facility:[facility] Start: 04-20-[address] Edilberto Loza MD Work Phone: -Radiology [facility] Work Phone: Start: 04-20-2025 ambulatory Edilberto Jomar [place]ago Facility:[facility] Start: 04-08-2025 End: 04-08-2025 Office outpatient visit 10 minutes Trish Bhatia DIETICIAN - MECHANICAL INSULATOR Work Phone: [facility] [place] Comment on above: Morbid obesity with BMI of 40.0-44.9, adult ([facility]) (Primary Dx); Gastroesophageal reflux disease without esophagitis Start: 04-08-2025 End: 04-08-2025 ambulatory TRISH BHATIA [facility] Start: 04-08-2025 End: 04-08-2025 Office outpatient new 30 minutes Jf Roe DIETICIAN - MECHANICAL INSULATOR Work Phone: [facility] Cardiology [facility] Comment on above: Gastroesophageal ref lux disease without esophagitis; Morbid obesity with BMI of 40.0-44.9, adult (HCC); Hypothyroidism, unspecified type; Pre-op testing Start: 04-08-2025 End: 04-08-2025 Patient encounter status Jf Roe DIETICIAN - MECHANICAL INSULATOR Work Phone: [facility] [employer] Start: 04-08-2025 End: 04-08-2025 ambulatory [employer] [facility] Start: 03-25-2025 End: 03-25-2025 ambulatory JORDON GOODERAFAT [facility] Start: 03-25-2025 End: 03-25-2025 Subsequent hospital visit by physician Jordon Santiago DO Work Phone: [facility] [address] [facility] Comment on above: Gastro-esophageal re flux disease without esophagitis Start: 03-17-2025 End: 03-17-2025 ambulatory BIBIANA ESPINOZA [facility] Start: 03-11-2025 End: 06-25-2025 Telephone encounter Trish Odonnell RN [facility] [place] [facility] [place] Comment on above: Other (UGI schedulin g concern) Start: 03-10-2025 End: 03-10-2025 ambulatory TRISH BHATIA [facility] Start: 03-10-2025 End: 03-10-2025 Encounter for other preprocedural examination TRISH THOMASSaurabhMICHAEL [facility] Start: 03-10-2025 End: 03-10-2025 Office outpatient visit 10 minutes Trish LauDonis DIETICIAN - MECHANICAL INSULATOR Work Phone: [facility] [place] Comment on above: Gastroesophageal ref lux disease without esophagitis; Hypothyroidism, unspecified type; Morbid obesity with BMI of 40.0-44.9, adult (HCC) Start: 03-10-2025 End: 03-10-2025 ambulatory TRISH BHATIA [facility] Start: 03-04-2025 End: 03-04-2025 Documentation procedure Bibiana Espinoza PhD Work Phone: [facility] Start: 03-02-2025 End: 03-02-2025 Psycl/nrpsycl tst elec platform auto result Bibiana Espinoza PhD Work Phone: [facility] Comment on above: Other disorder of ea ting; Mild episode of recurrent major depressive disorder (HCC); Other specified anxiety disorders Start: 03-02-2025 End: 03-02-2025 Outside Procedure Bibiana Espinoza PhD Work Phone: [facility] Comment on above: Other disorder of ea ting; Mild episode of recurrent major depressive disorder (HCC); Other specified anxiety disorders Start: 02-25-2025 End: 02-25-2025 Clinical Support Jordon Santiago DO Work Phone: [facility] [place] [facility] [place] Comment on above: Morbid obesity with BMI of 40.0-44.9, adult (HCC) (Primary Dx) Start: 02-23-2025 End: 02-23-2025 ambulatory Trish Bhatia DIETICIAN - MECHANICAL INSULATOR Work Phone: [facility] [employer] [facility] [place] Start: 02-19-2025 End: 02-19-2025 Office outpatient new 30 minutes Cricket CUMMINSC Work Phone: [facility] [employer] [facility] [place] Comment on above: Pre-op testing (Prim shruthi Dx); Gastroesophageal reflux disease without esophagitis; Morbid obesity with BMI of 40.0-44.9, adult ([facility]); Cigarette nicotine dependence in remission Start: 02-19-2025 End: 02-19-2025 Patient encounter status Cricket HACKETT-C Work Phone: [facility] [employer] Start: 02-19-2025 End: 02-19-2025 ambulatory CRICKET [employer] [facility] Start: 02-03-2025 End: 02-03-2025 Office outpatient visit 25 minutes Trish Bhatia DIETICIAN - MECHANICAL INSULATOR Work Phone: [facility] [employer] [facility] [place] Comment on above: Gastroesophageal ref lux disease without esophagitis; Hypothyroidism, unspecified type; Morbid obesity with BMI of 40.0-44.9, adult (HCC) Start: 02-03-2025 End: 02-03-2025 ambulatory [employer] [facility] Start: 01-28-2025 End: 02-08-2025 Documentation procedure Jordon Pamela BIGGS Work Phone: [facility] [employer] [facility] [place] Comment on above: EGD (EGD order ) Start: 01-25-2025 End: 01-25-2025 Patient encounter status Jordon Santiago DO Work Phone: [facility] [employer] Start: 01-25-2025 End: 01-25-2025 Telephone encounter Jordon Santiago DO Work Phone: [facility] [employer] [facility] [place] Comment on above: Other (FINANCIAL MARCELA E 2024); Surgery Scheduling (INITIAL SCHEDULING - ORDERS PLACED) Start: 01-25-2025 End: 01-25-2025 Office outpatient new 45 minutes Jordon Santiago Work Phone: [facility] [place] Comment on above: Morbid obesity, unsp ecified obesity type (HCC); Gastroesophageal reflux disease without esophagitis; Morbid obesity with BMI of 40.0-44.9, adult (HCC); Hypothyroidism, unspecified type Start: 01-25-2025 End: 01-25-2025 [facility] Start: 01-15-2025 End: 01-15-[address] Edilberto Loza MD Work Phone: [facility] Work Phone: Start: 01-15-2025 End: 01-15-[address] Edilberto Loza MD -Laboratory Work Phone: Start: 01-14-2025 End: 01-15-[address] Edilberto Loza MD Work Phone: [facility] Work Phone: Start: 01-14-2025 End: 01-14-[address] Edilberto Loza MD -Laboratory Work Phone: Start: 01-14-2025 End: 01-14-2025 ambulatory [facility] [place] Facility:[facility] Start: 10-22-2024 End: 10-22-2024 ambulatory [facility] [place] Facility:[facility] Start: 10-22-2024 End: 10-22-[address] Edilberto Loza MD -Physical Therapy Work Phone: Start: 10-01-2024 End: 10-01-[address] Edilberto Loza MD -Laboratory, Phy Office 3rd Arr Start: 10-01-2024 End: 10-01-2024 ambulatory [facility] [place] Facility:[facility] Start: 07-28-2024 End: 07-28-2024 ambulatory [facility] Ambulatory Start: 07-28-2024 End: 07-28-2024 Office outpatient visit 15 minutes Karie Fallon DIETICIAN-MECHANICAL INSULATOR Work Phone: [facility] Office Building Comment on above: Gastroesophageal ref lux disease, unspecified whether esophagitis present (Primary Dx); Severe obesity (BMI >= 40) (Multi) Start: 02-19-2024 End: 02-19-2024 Office outpatient visit 15 minutes Karie Fallon DIETICIAN-MECHANICAL INSULATOR Work Phone: [facility] Office [facility] Comment on above: Gastroesophageal ref lux disease, unspecified whether esophagitis present (Primary Dx); Severe obesity (BMI >= 40) (CMS/HCC) Start: 02-19-2024 End: 02-19-2024 ambulatory [facility] Ambulatory Start: 12-24-2023 End: 12-24-2023 ambulatory [facility] Ambulatory Start: 11-21-2023 End: 11-21-2023 ambulatory [facility] Ambulatory Start: 10-15-2023 End: 10-15-2023 Office outpatient visit 15 minutes Karie Fallon DIETICIAN-MECHANICAL INSULATOR Work Phone: [facility] Comment on above: Severe obesity (BMI >= 40) (CMS/HCC) (Primary Dx) Start: 10-15-2023 End: 10-15-2023 ambulatory [facility] Ambulatory Start: 09-11-2023 End: 09-11-2023 ambulatory [facility] Ambulatory Start: 08-13-2023 End: 08-13-2023 ambulatory [facility] Ambulatory Start: 03-16-2023 End: 03-17-2023 ambulatory ESTEPHANIA Dorado'KENDRA DO Facility:[facility] Start: 03-16-2023 End: 03-16-2023 Patient encounter procedure JOSEPHER D'KENDRA DO [facility] Start: 03-26-2022 End: 03-26-2022 Patient encounter procedure [facility]-Laboratory, Specimen Start: 03-26-2022 End: 03-26-2022 Patient encounter procedure [facility]-Radiology, [facility] Start: 01-20-2018 Ambulatory [facility] Procedures Date Procedure Procedure Detail Performing Clinician Start: 08-17-[address] Edilberto Loza MD Work Phone: Start: 08-17-2025 Ultrasonography guided biopsy of breast Dr. Edilberto Loza MD Work Phone: Start: 08-07-2025 Urnls dip stick/tablet reagent auto microscopy Dr. Edilberto Loza MD Work Phone: Start: 08-07-[address] Edilberto taylor MD Work Phone: Start: 08-07-2025 Computed tomography of abdomen and pelvis with contrast Dr. Edilberto Loza MD Work Phone: Start: 07-27-[address] Edilberto Dorado Work Phone: Start: 07-23-2025 End: 07-23-[address] Edilberto Loza MD Work Phone: Start: 07-17-[address] Edilberto Loza MD Work Phone: Start: 07-01-2025 Radiologic exam upr gi trc [...] End: 06-30-2025 Unlis laparoscopic procedure liver Jordon Santiago DO Work Phone: Start: 04-30-[address] Edilberto Loza MD Work Phone: Comment on above: This test was developed and its performa nce characteristicsdetermined by [employer]. It has not been cleared orapproved by the Food and Drug Administration.Cotinine levels greater than 20.0 are consistent with theuse of tobacco or tobacco cessation products.Performed at: [address] [id number] Director: Lou Leung MD, Phone: [phone] Start: 04-20-2025 Upper gastrointestinal tract contrast procedure [...] panel - Serum or Plasma Trish Bhatia DIETICIAN - MECHANICAL INSULATOR Work Phone: Start: 03-10-2025 Thyrotropin [Units/volume] in Serum or Plasma Trish Bhatia DIETICIAN - MECHANICAL INSULATOR Work Phone: Start: 03-02-2025 End: 03-02-2025 Psychiatric [...] Author Start: 03-10-2030 Lipid panel Lipid Panel [facility] Start: 07-23-2026 Screening for malignant neoplasm of breast Mammogram [facility] Start: 06-22-2026 Diabetes mellitus screening Diabetes Screening [facility] Start: 03-10-2026 Diabetes mellitus screening Diabetes Screening [facility] Start: 03-10-2026 Thyroid stimulating hormone measurement TSH Level [facility] Start: 01-03-2026 End: 01-03-2026 Patient encounter procedure 01/03/2026 9:50 AM EST Office Visit [facility] [place] [address] [place] [address] Jordon Santiago DO [address] [place] [address] [facility] [employer] [facility] [place] Start: 09-02-2025 Patient encounter procedure Registered Clinical -Laboratory Phy Office 3rd Flr Start: 08-28-2025 End: 07-29-2026 CBC panel - Blood by Automated count CBC Lab Routine H/O gastric bypass 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 Expected: 08/28/2025 (Approximate), Expires: 07/29/2026 [facility] [employer] Comment on above: Expected: 08/28/2025 (Approximate), Expi res: 07/29/2026 Start: 08-28-2025 End: 07-29-2026 Cobalamin (Vitamin B12) [Mass/volume] in Serum or Plasma Vitamin B12 Lab Routine H/O gastric bypass 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 Expected: 08/28/2025 (Approximate), Expires: 07/29/2026 [facility] [employer] Comment on above: Expected: 08/28/2025 (Approximate), Expi res: 07/29/2026 Start: 08-28-2025 End: 07-29-2026 Comprehensive metabolic 1998 panel - Serum or Plasma Comprehensive metabolic panel Lab Routine H/O gastric bypass 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 Expected: 08/28/2025 (Approximate), Expires: 07/29/2026 [facility] [employer] Comment on above: Expected: 08/28/2025 (Approximate), Expi res: 07/29/2026 Start: 08-28-2025 End: 07-29-2026 Ferritin [Mass/volume] in Serum or Plasma Ferritin Lab Routine H/O gastric bypass 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 Expected: 08/28/2025 (Approximate), Expires: 07/29/2026 [facility] [employer] Comment on above: Expected: 08/28/2025 (Approximate), Expi res: 07/29/2026 Start: 08-28-2025 End: 07-29-2026 Folate [Mass/volume] in Serum or Plasma Folate Lab Routine H/O gastric bypass 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 Expected: 08/28/2025 (Approximate), Expires: 07/29/2026 [facility] [employer] Comment on above: Expected: 08/28/2025 (Approximate), Expi res: 07/29/2026 Start: 08-28-2025 End: 07-29-2026 Iron and Iron binding capacity panel - Serum or Plasma Iron Lab Routine H/O gastric bypass 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 Expected: 08/28/2025 (Approximate), Expires: 07/29/2026 [facility] [employer] Comment on above: Expected: 08/28/2025 (Approximate), Expi res: 07/29/2026 Start: 08-28-2025 End: 07-29-2026 Magnesium [Mass/volume] in Serum or Plasma Magnesium Lab Routine H/O gastric bypass 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 Expected: 08/28/2025 (Approximate), Expires: 07/29/2026 [facility] [employer] Comment on above: Expected: 08/28/2025 (Approximate), Expi res: 07/29/2026 Start: 08-28-2025 End: 07-29-2026 Zinc Zinc Lab Routine H/O gastric bypass 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 Expected: 08/28/2025 (Approximate), Expires: 07/29/2026 [facility] [employer] [facility] Work Phone: Comment on above: Expected: 08/28/2025 (Approximate), Expi res: 07/29/2026 Start: 08-17-2025 Ultrasonography guided biopsy of breast [facility] Start: 08-10-2025 Patient encounter procedure Registered Clinical -Laboratory Phy Office 3rd Flr Start: 08-09-2025 End: 08-09-2025 Patient encounter procedure Abnormal mammogram of right breast -[facility] Work Phone: Start: 08-07-2025 [facility] Start: 08-02-2025 End: 08-02-2025 Patient encounter procedure 08/02/2025 10:00 AM EDT Office Visit [facility] [place] [address] [place] [phone] Jordon Santiago DO [address] [facility] [address] [place] [address] [facility] [place] Start: 07-14-2025 End: 06-30-2026 CBC panel - Blood by Automated count CBC Lab Routine H/O gastric bypass 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 Morbid obesity with BMI of 40.0-44.9, adult (HCC) Gastroesophageal reflux disease without esophagitis Expected: 07/14/2025 (Approximate), Expires: 06/30/2026 [employer] Comment on above: Expected: 07/14/2025 (Approximate), Expi res: 06/30/2026 Start: 07-14-2025 End: 06-30-2026 Cobalamin (Vitamin B12) [Mass/volume] in Serum or Plasma Vitamin B12 Lab Routine H/O gastric bypass 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 Morbid obesity with BMI of 40.0-44.9, adult (HCC) Gastroesophageal reflux disease without esophagitis Expected: 07/14/2025 (Approximate), Expires: 06/30/2026 [employer] Comment on above: Expected: 07/14/2025 (Approximate), Expi res: 06/30/2026 Start: 07-14-2025 End: 06-30-2026 Comprehensive metabolic 1998 panel - Serum or Plasma Comprehensive metabolic panel Lab Routine H/O gastric bypass 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 Morbid obesity with BMI of 40.0-44.9, adult (HCC) Gastroesophageal reflux disease without esophagitis Expected: 07/14/2025 (Approximate), Expires: 06/30/2026 [facility] [employer] Comment on above: Expected: 07/14/2025 (Approximate), Expi res: 06/30/2026 Start: 07-14-2025 End: 06-30-2026 Ferritin [Mass/volume] in Serum or Plasma Ferritin Lab Routine H/O gastric bypass 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 Morbid obesity with BMI of 40.0-44.9, adult (HCC) Gastroesophageal reflux disease without esophagitis Expected: 07/14/2025 (Approximate), Expires: 06/30/2026 [facility] [employer] Comment on above: Expected: 07/14/2025 (Approximate), Expi res: 06/30/2026 Start: 07-14-2025 End: 06-30-2026 Folate [Mass/volume] in Serum or Plasma Folate Lab Routine H/O gastric bypass 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 Morbid obesity with BMI of 40.0-44.9, adult (HCC) Gastroesophageal reflux disease without esophagitis Expected: 07/14/2025 (Approximate), Expires: 06/30/2026 [facility] [employer] Comment on above: Expected: 07/14/2025 (Approximate), Expi res: 06/30/2026 Start: 07-14-2025 End: 06-30-2026 Iron and Iron binding capacity panel - Serum or Plasma Iron Lab Routine H/O gastric bypass 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 Morbid obesity with BMI of 40.0-44.9, adult (HCC) Gastroesophageal reflux disease without esophagitis Expected: 07/14/2025 (Approximate), Expires: 06/30/2026 [facility] [employer] Comment on above: Expected: 07/14/2025 (Approximate), Expi res: 06/30/2026 Start: 07-14-2025 End: 06-30-2026 Magnesium [Mass/volume] in Serum or Plasma Magnesium Lab Routine H/O gastric bypass 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 Morbid obesity with BMI of 40.0-44.9, adult (HCC) Gastroesophageal reflux disease without esophagitis Expected: 07/14/2025 (Approximate), Expires: 06/30/2026 [facility] Comment on above: Expected: 07/14/2025 (Approximate), Expi res: 06/30/2026 Start: 07-14-2025 End: 06-30-2026 Zinc Zinc Lab Routine H/O gastric bypass 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 Morbid obesity with BMI of 40.0-44.9, adult (HCC) Gastroesophageal reflux disease without esophagitis Expected: 07/14/2025 (Approximate), Expires: 06/30/2026 [facility] [employer] [facility] Work Phone: Comment on above: Expected: 07/14/2025 (Approximate), Expi res: 06/30/2026 Start: 07-12-2025 COVID-19 Vaccine ( season) COVID-19 Vaccine () [facility] Start: 07-12-2025 Influenza vaccination Influenza Vaccine (#1) [facility] Start: 07-05-2025 End: 07-05-2025 Patient encounter procedure 07/05/2025 8:40 AM EDT Office Visit [facility] [place] [address] [place] [phone] tomerrafat Jordon, [address] [place], [place] [phone] [facility] [place] Start: 06-30-2025 End: 06-30-2025 Admission to same day surgery center 06/30/2025 7:30 AM EDT - 06/30/2025 10:30 AM EDT Surgery [facility] MAIN OR [address] [place] [phone] lonnie Jordon, [facility] [address] [place] [address] LAPAROSCOPIC DIANA-EN-Y GASTRIC BYPASS [32472 (CPT )] [facility] Comment on above: LAPAROSCOPIC DIANA-EN-Y GASTRIC BYPASS [4 3644 (CPT )] Start: 06-30-2025 End: 06-30-2025 Anesthesia consultation 06/30/2025 7:30 AM EDT Anesthesia Event [facility] [address] [facility] [place] [phone] Lorena Griffith, DIETICIAN - MECHANICAL INSULATOR [address] [place] [address] [facility] MAIN OR Start: 06-30-2025 End: 06-30-2025 Laps gstr rstcv px w/byp diana-en-y limb <150 cm LAPAROSCOPIC, CREATION, GASTRIC BYPASS, WITH DIANA-EN-Y GASTROENTEROSTOMY Morbid obesity with BMI of 40.0-44.9, adult ([facility]) 06/30/2025 7:30 AM EDT [facility] Operating Room Start: 06-30-2025 End: 06-30-2025 Laps rpr paraesphgl hrna incl fundplsty w/o mesh LAPAROSCOPIC, REPAIR, HERNIA, HIATAL Morbid obesity with BMI of 40.0-44.9, adult ([facility]) 06/30/2025 7:30 AM EDT [facility] Operating Room Start: 06-30-2025 Subsequent hospital visit by physician 06/30/2025 7:30 AM EDT Hospital Encounter [facility] MAIN OR [address] [place] [phone] Jordon Santiago DO [address] [place] [address] [address] [place] [address] [facility] MAIN OR Start: 06-30-2025 End: 06-30-2025 Unlis laparoscopic procedure liver LAPAROSCOPIC, BIOPSY, LIVER Morbid obesity with BMI of 40.0-44.9, adult ([facility]) 06/30/2025 7:30 AM EDT [facility] Operating Room Start: 06-22-2025 End: 06-22-2025 Admission to establishment 06/22/2025 2:00 PM EDT Pre-Admission Testing [facility] Pre-Admit Testing [address] [place] [phone] [facility] Pre-Admit Testing Start: 06-11-2025 End: 09-11-2025 25-hydroxyvitamin D3 [Mass/volume] in Serum or Plasma Vitamin D Deficiency Screening (Vit D 25) Lab Routine Deficiency of multiple nutrient elements Expected: 06/11/2025 (Approximate), Expires: 09/11/2025 [facility] [employer] [facility] Work Phone: Comment on above: Expected: 06/11/2025 (Approximate), Expi res: 09/11/2025 Start: 06-07-2025 End: 06-07-2025 Patient encounter procedure 06/07/2025 9:10 AM EDT [facility] [place] [address] [place] [phone] Jordon Santiago DO [address] [facility] [address] [place] [address] [facility] [place] Start: 05-25-2025 End: 05-25-2026 Albumin [Mass/volume] in Serum or Plasma Albumin Lab Routine Obesity, morbid, BMI 40.0-49.9 (HCC) Expected: 05/25/2025 (Approximate), Expires: 05/25/2026 [facility] [employer] [facility] Work Phone: Comment on above: Expected: 05/25/2025 (Approximate), Expi res: 05/25/2026 Start: 05-25-2025 End: 05-25-2026 Basic metabolic 1998 panel - Serum or Plasma Basic metabolic panel Lab Routine Obesity, morbid, BMI 40.0-49.9 (HCC) Expected: 05/25/2025 (Approximate), Expires: 05/25/2026 [facility] Comment on above: Expected: 05/25/2025 (Approximate), Expi res: 05/25/2026 Start: 05-25-2025 End: 05-25-2026 CBC panel - Blood by Automated count CBC Lab Routine Obesity, morbid, BMI 40.0-49.9 (HCC) Expected: 05/25/2025 (Approximate), Expires: 05/25/2026 [facility] [employer] Comment on above: Expected: 05/25/2025 (Approximate), Expi res: 05/25/2026 Start: 05-25-2025 End: 05-25-2026 Hemoglobin A1c measurement Hemoglobin A1c Lab Routine Obesity, morbid, BMI 40.0-49.9 (HCC) Expected: 05/25/2025 (Approximate), Expires: 05/25/2026 [facility] Comment on above: Expected: 05/25/2025 (Approximate), Expi res: 05/25/2026 Start: 04-28-2025 End: 04-27-2026 Nicotine, Blood Nicotine, Blood Lab Routine Pre-op testing Pre-operative laboratory examination Expected: 04/28/2025, Expires: 04/27/2026 [facility] Work Phone: Comment on above: Expected: 04/28/2025, Expires: Start: 04-08-2025 End: 04-08-2025 Patient encounter procedure 04/08/2025 1:40 PM EDT Office Visit [facility] [place] [address] [place] [address] Trish Bhatia, DIETICIAN - MECHANICAL INSULATOR [address] [place], [place] [phone] [facility] [place] Start: 04-08-2025 End: 04-08-2025 Patient encounter procedure 04/08/2025 10:30 AM EDT Office Visit [facility] [place] [address] [place] [address] Jf Roe, DIETICIAN - MECHANICAL INSULATOR [address] [place] [address] [facility] [place] Start: 03-25-2025 End: 03-25-2025 Admission to same day surgery center 03/25/2025 1:45 PM EDT - 03/25/2025 2:05 PM EDT Surgery [facility] [address] [place] [address] Jordon Santiago DO [address] [place] [address] ESOPHAGOGASTRODUODENOSCO PY, WITH BIOPSY [97705 (CPT )] [facility] [address] [facility] Comment on above: ESOPHAGOGASTRODUODENOSCOPY, WITH BIOPSY [55629 (CPT )] Start: 03-25-2025 End: 03-25-2025 Egd transoral biopsy single/multiple [facility] Start: 03-25-2025 Subsequent hospital visit by physician 03/25/2025 1:45 PM EDT Hospital Encounter [facility] [address] [place] [address] Jordon Santiago DO [address] [place] [address] [facility] [address] [facility] Start: 03-17-2025 End: 03-17-2025 Telemedicine consultation with patient 03/17/2025 1:30 PM EDT [facility] [place] [address] [place] [address] Bibiana Espinoza, PhD [address] [place] [address] [facility] [place] Start: 03-10-2025 End: 03-10-2025 Patient encounter procedure 03/10/2025 9:00 AM EDT Office Visit [facility] [place] [address] [place] [address] Trish Bhatia, DIETICIAN - MECHANICAL INSULATOR [address] [place] [address] [facility] [place] Start: 03-05-2025 End: 03-05-2025 Patient encounter procedure 03/05/2025 2:00 PM EDT Appointment [facility] [address] [place] [phone] Cricket Jones PA-C [address] [place] [address] [facility] [address] Start: 03-05-2025 Subsequent hospital visit by physician 03/05/2025 2:00 PM EDT Hospital Encounter [facility] [address] [place] [phone] Cricket Jones PA-C [address] [place] [address] Start: 03-02-2025 End: 03-02-2025 Patient encounter procedure [facility] [place] Start: 02-25-2025 End: 02-25-2025 Egd transoral biopsy single/multiple ESOPHAGOGASTRODUODENOSCO PY, WITH BIOPSY Gastro-esophageal reflux disease without esophagitis 02/25/2025 1:45 PM EDT [facility] Start: 02-25-2025 End: 02-25-2025 Clinical Support [facility] Comment on above: ESOPHAGOGASTRODUODENOSCOPY, WITH BIOPSY [52481 (CPT )] Start: 02-19-2025 End: 02-19-2026 CT Chest for screening WO contrast CT lung screening low dose Imaging Routine Cigarette nicotine dependence in remission Expected: 02/19/2025, Expires: 02/19/2026 [facility] Work Phone: Comment on above: Expected: 02/19/2025, Expires: Start: 02-19-2025 End: 02-19-2025 Patient encounter procedure 02/19/2025 10:40 AM EDT Office Visit [facility] Lung Nodule [facility] [place] [address] [place] [phone] Cricket Jones PA-C [address] [place] [address] [facility] Lung Nodule [facility] Start: 02-11-2025 End: 01-28-2026 25-hydroxyvitamin D3 [Mass/volume] in Serum or Plasma Vitamin D Deficiency Screening (Vit D 25) Lab Routine Gastroesophageal reflux disease without esophagitis Morbid obesity with BMI of 40.0-44.9, adult (HCC) Hypothyroidism, unspecified type Pre-op testing Expected: 02/11/2025 (Approximate), Expires: 01/28/2026 [facility] Comment on above: Expected: 02/11/2025 (Approximate), Expi res: 01/28/2026 Start: 02-11-2025 End: 01-28-2026 CBC panel - Blood by Automated count CBC Lab Routine Gastroesophageal reflux disease without esophagitis Morbid obesity with BMI of 40.0-44.9, adult (HCC) Hypothyroidism, unspecified type Pre-op testing Expected: 02/11/2025 (Approximate), Expires: 01/28/2026 [employer] Comment on above: Expected: 02/11/2025 (Approximate), Expi res: 01/28/2026 Start: 02-11-2025 End: 01-28-2026 Cobalamin (Vitamin B12) [Mass/volume] in Serum or Plasma Vitamin B12 Lab Routine Gastroesophageal reflux disease without esophagitis Morbid obesity with BMI of 40.0-44.9, adult (HCC) Hypothyroidism, unspecified type Pre-op testing Expected: 02/11/2025 (Approximate), Expires: 01/28/2026 [employer] Comment on above: Expected: 02/11/2025 (Approximate), Expi res: 01/28/2026 Start: 02-11-2025 End: 01-28-2026 Comprehensive metabolic 1998 panel - Serum or Plasma Comprehensive metabolic panel Lab Routine Gastroesophageal reflux disease without esophagitis Morbid obesity with BMI of 40.0-44.9, adult (HCC) Hypothyroidism, unspecified type Pre-op testing Expected: 02/11/2025 (Approximate), Expires: 01/28/2026 [employer] Comment on above: Expected: 02/11/2025 (Approximate), Expi res: 01/28/2026 Start: 02-11-2025 End: 01-28-2026 Ferritin [Mass/volume] in Serum or Plasma Ferritin Lab Routine Gastroesophageal reflux disease without esophagitis Morbid obesity with BMI of 40.0-44.9, adult (HCC) Hypothyroidism, unspecified type Pre-op testing Expected: 02/11/2025 (Approximate), Expires: 01/28/2026 [employer] Comment on above: Expected: 02/11/2025 (Approximate), Expi res: 01/28/2026 Start: 02-11-2025 End: 01-28-2026 Folate [Mass/volume] in Serum or Plasma Folate Lab Routine Gastroesophageal reflux disease without esophagitis Morbid obesity with BMI of 40.0-44.9, adult (HCC) Hypothyroidism, unspecified type Pre-op testing Expected: 02/11/2025 (Approximate), Expires: 01/28/2026 [facility] [employer] Comment on above: Expected: 02/11/2025 (Approximate), Expi res: 01/28/2026 Start: 02-11-2025 End: 01-28-2026 Hemoglobin A1c measurement Hemoglobin A1c Lab Routine Gastroesophageal reflux disease without esophagitis Morbid obesity with BMI of 40.0-44.9, adult (HCC) Hypothyroidism, unspecified type Pre-op testing Expected: 02/11/2025 (Approximate), Expires: 01/28/2026 [facility] [employer] [facility] Work Phone: Comment on above: Expected: 02/11/2025 (Approximate), Expi res: 01/28/2026 Start: 02-11-2025 End: 01-28-2026 Iron and Iron binding capacity panel - Serum or Plasma Iron Lab Routine Gastroesophageal reflux disease without esophagitis Morbid obesity with BMI of 40.0-44.9, adult (HCC) Hypothyroidism, unspecified type Pre-op testing Expected: 02/11/2025 (Approximate), Expires: 01/28/2026 [facility] [employer] Comment on above: Expected: 02/11/2025 (Approximate), Expi res: 01/28/2026 Start: 02-11-2025 End: 01-28-2026 Lipid 1996 panel - Serum or Plasma Lipid panel Lab Routine Gastroesophageal reflux disease without esophagitis Morbid obesity with BMI of 40.0-44.9, adult (HCC) Hypothyroidism, unspecified type Pre-op testing Expected: 02/11/2025 (Approximate), Expires: 01/28/2026 [facility] [employer] Comment on above: Expected: 02/11/2025 (Approximate), Expi res: 01/28/2026 Start: 02-11-2025 End: 01-28-2026 Magnesium [Mass/volume] in Serum or Plasma Magnesium Lab Routine Gastroesophageal reflux disease without esophagitis Morbid obesity with BMI of 40.0-44.9, adult (HCC) Hypothyroidism, unspecified type Pre-op testing Expected: 02/11/2025 (Approximate), Expires: 01/28/2026 [facility] [employer] Comment on above: Expected: 02/11/2025 (Approximate), Expi res: 01/28/2026 Start: 02-11-2025 End: 01-28-2026 Thyrotropin [Units/volume] in Serum or Plasma TSH Lab Routine Gastroesophageal reflux disease without esophagitis Morbid obesity with BMI of 40.0-44.9, adult (HCC) Hypothyroidism, unspecified type Pre-op testing Expected: 02/11/2025 (Approximate), Expires: 01/28/2026 [employer] Comment on above: Expected: 02/11/2025 (Approximate), Expi res: 01/28/2026 Start: 02-11-2025 End: 01-28-2026 US Abdomen US abdomen complete Imaging Routine Gastroesophageal reflux disease without esophagitis Morbid obesity with BMI of 40.0-44.9, adult (HCC) Hypothyroidism, unspecified type Pre-op testing Expected: 02/11/2025, Expires: 01/28/2026 [employer] Comment on above: Expected: 02/11/2025, Expires: Start: 02-11-2025 End: 01-28-2026 Vitamin B1, whole blood ([facility]) Vitamin B1, whole blood ([facility]) Lab Routine Gastroesophageal reflux disease without esophagitis Morbid obesity with BMI of 40.0-44.9, adult (HCC) Hypothyroidism, unspecified type Pre-op testing Expected: 02/11/2025 (Approximate), Expires: 01/28/2026 [employer] Comment on above: Expected: 02/11/2025 (Approximate), Expi res: 01/28/2026 Start: 02-11-2025 End: 01-28-2026 XR Abdomen and RF Gastrointestinal tract upper W contrast PO FL upper GI w KUB Imaging Routine Gastroesophageal reflux disease without esophagitis Morbid obesity with BMI of 40.0-44.9, adult (HCC) Hypothyroidism, unspecified type Pre-op testing Expected: 02/11/2025, Expires: 01/28/2026 [employer] Comment on above: Expected: 02/11/2025, Expires: Start: 02-11-2025 End: 01-28-2026 Zinc (Sendout) Zinc (Sendout) Lab Routine Gastroesophageal reflux disease without esophagitis Morbid obesity with BMI of 40.0-44.9, adult (HCC) Hypothyroidism, unspecified type Pre-op testing Expected: 02/11/2025 (Approximate), Expires: 01/28/2026 [facility] Comment on above: Expected: 02/11/2025 (Approximate), Expi res: 01/28/2026 Start: 02-03-2025 End: 02-03-2025 Patient encounter procedure 02/03/2025 10:40 AM EDT Office Visit [facility] [place] [address] [place] [address] Trish Bhatia, [place] - MECHANICAL INSULATOR [address] [place] [address] [facility] [place] Start: 11-11-2024 Medicare Advantage Annual Wellness Visit Medicare Advantage Annual Wellness Visit [facility] Start: 07-12-2024 COVID-19 Vaccine ( season) COVID-19 Vaccine ( season) [facility] Start: 07-12-2024 COVID-19 Vaccine ( season) COVID-19 Vaccine ( season) [facility] Start: 07-12-2024 Influenza vaccination Influenza Vaccine (Season Ended) [facility] Start: 2023 RSV Immunization for Adults (1 - Risk 60-74 years 1-dose series) RSV Immunization for Adults (1 - Risk 60-74 years 1-dose series) [facility] Start: 2023 RSV patients and/or patients aged 60+ years (1 - 1-dose 60+ series) RSV patients and/or patients aged 60+ years (1 - 1-dose 60+ series) [facility] Start: 11-15-2023 End: 11-15-2023 Nutrition therapy 11/15/2023 9:00 AM EST Nutrition [facility] [address] [address] [address] [address] Nuha Gore, [place], [place] [facility] Start: 07-12-2023 COVID-19 Vaccine ( season) COVID-19 Vaccine (2022-24 season) [facility] Start: 07-12-2023 Influenza vaccination Influenza Vaccine (#1) [facility] Start: 01-21-2019 Pneumococcal Vaccine: 50+ Years (2 of 2 - PCV) Pneumococcal Vaccine: 50+ Years (2 of 2 - PCV) [facility] Start: 09-30-2018 Zoster Vaccines (2 of 2) Zoster Vaccines (2 of 2) [facility] Start: 2013 Zoster Vaccines (1 of 2) Zoster Vaccines (1 of 2) [facility] Start: 2003 Screening for malignant neoplasm of breast Mammogram [facility] Start: 1993 Screening for malignant neoplasm of cervix [facility] Start: 1985 DTaP/Tdap/Td Vaccines (1 - Tdap) DTaP/Tdap/Td Vaccines (1 - Tdap) [facility] Start: 1984 Screening for malignant neoplasm of cervix [facility] Start: 1982 DTaP/Tdap/Td Vaccines (1 - Tdap) DTaP/Tdap/Td Vaccines (1 - Tdap) [facility] Start: 1981 Diabetes mellitus screening Diabetes Screening [facility] Start: 1981 Hepatitis C screening Hepatitis C Screening [facility] Start: 1975 Depression Monitoring Depression Monitoring [facility] Start: 1964 MMR Vaccines (1 of 1 - Standard series) MMR Vaccines (1 of 1 - Standard series) [facility] Start: 05-24-1964 COVID-19 Vaccine (#1) COVID-19 Vaccine (#1) [facility] Start: 1963 Hepatitis B Vaccines (1 of 3 - 3-dose series) Hepatitis B Vaccines (1 of 3 - 3-dose series) [facility] Start: 1963 HIV screening HIV Screening [facility] Start: 1963 Lipid panel Lipid Panel [facility] Start: 1963 Screening for malignant neoplasm of colon [facility] Start: 1963 Thyroid stimulating hormone measurement TSH Level [facility] Start: 1963 Yearly Adult Physical Yearly Adult Physical [facility] ECG 12 lead - CLINIC PERFORMED ECG 12 lead - CLINIC PERFORMED CV ECG Routine Gastroesophageal reflux disease without esophagitis 04/08/2025 10:38 AM EDT [employer] [facility] Work Phone: Patient Education Bariatric Surg Post Op 6 Weeks Bariatric Surg Lifestyle Changes ED Abdominal Pain Unkn Cause Fem ED Constipation (Adult) [facility] Work Phone: Tissue exam Tissue exam Path ology and Cytology Timed Gastro-esophageal reflux disease without esophagitis Release Upon Ordering for 1 Occurrences starting 03/25/2025 [employer] [facility] Work Phone: Comment on above: Release Upon Ordering for 1 Occurrences starting 03/25/2025 Tissue exam [employer] Work Phone: Comment on above: Release Upon Ordering for 1 Occurrences starting 06/30/2025, 1 completed Vitamin B1, whole bl ood ([facility]) Vitamin B1, whole blood ([facility]) Lab Routine Gastroesophageal reflux disease without esophagitis Morbid obesity with BMI of 40.0-44.9, adult (HCC) Hypothyroidism, unspecified type Pre-op testing 03/10/2025 10:01 AM EDT [employer] Zinc (Sendout) Zinc ([facility]) L ab Routine Gastroesophageal reflux disease without esophagitis Morbid obesity with BMI of 40.0-44.9, adult (HCC) Hypothyroidism, unspecified type Pre-op testing 03/10/2025 10:01 AM EDT [employer] Immunizations Immunization Date Immunization Notes Care Provider Maru branch 07-07-2024 influenza virus vaccine, unspecified formulation Jordon Santiago DO Work Phone: [employer] 01-21-2018 pneumococcal polysaccharide vaccine, 23 valent Jordon Goodesgay DO Work Phone: [employer] Work Phone: 11-27-2016 influenza virus vaccine, unspecified formulation Karie Fallon DIETICIAN-MECHANICAL INSULATOR Work Phone: [facility] Work Phone: Payers Date Payer Category Payer Medicare HMO [facility] MEDICARE [id number] 2024 Private Health Insurance [id number] 2024 Unknown [id number] 2024 Private Health Insurance [id number] 2024 Self-pay [id number] 2024 Unknown [id number] 2023 Unknown 2023 Unknown [id number] 2023 Unknown [id number] 1965 Unknown [id number] 2.0.1.007161.3.579.2. 627 1965 Unknown [id number] 2.0.1.533679.3.579.2. 124 1963 Unknown [id number] .0.1.188303.3.579.2. 1243 1963 Unknown [id number] .0.1.517347.3.579.2. 1243 1963 Unknown [id number] 2.840.1.348679.3.579.2. 1243 1963 Unknown [id number] 2.840.1.457968.3.579.2. 124 1963 Unknown [id number] 2.16.840.1.023528.3.579.2. 1244 1963 Unknown [id number] 2.16.840.1.646694.3.579.2. 1244 1963 Unknown [id number] 2.16.840.1.512612.3.579.2. 1244 1963 Unknown [id number] 2.16.840.1.002408.3.579.2. 1244 1963 Unknown [id number] 2.16.840.1.386573.3.579.2. 1244 1963 Unknown [id number] 2.16.840.1.782760.3.579.2. 1244 Medicare [id number] Unknown [id number] 2..840.1.987401.3.579.2. 462 Unknown [id number] 2.840.1.982048.3.579.2. 462 Unknown [id number] 2.16.840.1.820820.3.579.2. 462 Unknown [id number] 2.16840.1.521203.3.579.2. 462 Unknown [id number] 2.840.1.307726.3.579.2. 462 Unknown [id number] 2.840.1.261432.3.579.2. 462 Unknown [id number] 2.16.840.1.432574.3.579.2. 462 Unknown [id number] 2.16.840.1.393204.3.579.2. 462 Unknown [id number] 2.16.840.1.866257.3.579.2. 462 Unknown [id number] 2.16.840.1.602962.3.579.2. 462 Unknown [id number] 2.16.840.1.188939.3.579.2. 462 Unknown [id number] 2.16.840.1.596912.3.579.2. 462 Unknown [id number] 2.16.840.1.230519.3.579.2. 462 Unknown [id number] 2.16.840.1.386958.3.579.2. 462 Unknown [id number] 2.16.840.1.848533.3.579.2. 462 Unknown [id number] 2.16.840.1.146990.3.579.2. 462 Unknown [id number] 2.16.840.1.326107.3.579.2. 462 Unknown [id number] 2.16.840.1.913152.3.579.2. 462 Social History Date Type Detail Facility Start: 10-29-2019 Tobacco smoking status [facility] Unknown if ever smoked [facility] Work Phone: Start: 1965 Sex Assigned At Female [facility] Tobacco smoking status No Smokin g Status Entered [facility] Start: 08-13-2023 End: 08-07-2025 Tobacco smoking status MOIS Ex-smoker [facility] Work Phone: Start: 05-11-1977 History of tobacco use Current smoker [facility] Work Phone: Start: 05-11-1977 History of tobacco use Cigarette Smoker [facility] Work Phone: Start: 08-13-2023 End: 01-25-2025 Tobacco use and exposure Smokeless tobacco non-user [facility] Work Phone: Start: 10-15-2023 End: 01-27-2025 Alcohol intake Lifetime non-drinker (finding) [facility] Work Phone: Start: 09-11-2023 End: 06-30-2025 History of Social function [facility] Work Phone: Start: 09-11-2023 End: 06-30-2025 Alcohol Use Disorder Identification Test - Consumption [AUDIT-C] [facility] Work Phone: How often to you hav e a drink containing alcohol? Never [facility] Work Phone: How many standard dr inks containing alcohol do you have on a typical day? Patient does not drink [facility] Work Phone: Start: 1965 Sex Assigned At Not on file [facility] Work Phone: Start: 10-05-2023 End: 02-19-2024 Exposure to SARS-CoV-2 (event) Not sure [facility] Start: 06-11-2022 End: 01-28-2025 Sex Female (finding) [facility] Start: 10-29-2019 Tobacco smoking status NHIS Smokes tobacco daily (finding) [facility] Has the [employer], or [employer] threatened to shut off services in your home in past 12Mo No [facility] (I/We) worried [facility] (my/our) food would run out before (I/we) got money to buy more. Never true [facility] Start: 07-01-2025 End: 08-02-2025 Alcoholic beverage intake Ex-drinker (finding) [facility] Goals Date Patient Goal Desired Activity /State Functional Status Date Assessment Result Facility [facility] Clinical Notes 10-15-2023 to 08-09-2025 Note Date & Type Note Facility 08-09-2025 Evaluation note Diagnosis Onset Date Resolution Abnormal mammogram of right breast acute August 09, 2025 1:28pm [facility] Work Phone: 1(368) 182-142109-29-2025 [facility] [address] [place], [place] [address] OFFICE VISIT Date of Service: 08/09/25 MR#: [id number] Acct: [id number] Name: JAIME ONEILL Rep #: [id number] : 1965 Provider: Dr. Mingo Islas MD Age/Sex: 59/F Location: [facility] Status: Signed Intake Vital Signs 08/07/25 07:24 08/09/25 13:47 Height 5 ft 5 in 5 ft 5 in Weight: 228 lb 6 oz BMI 38.0 BP 139/89 H Blood Pressure Location Lt radial Position Sitting Respiration 18 Pulse 75 Pulse Source Monitor Temp 97.9 F Temp Source Temporal Pulse Oximetry (%) 98 Oxygen Delivery Method room air Intake Visit Reasons: BIRADS 4 Chief Complaint: BIRADS 4 Is patient in pain?: No Allergies No Known Allergies Allergy (Verified 08/09/25 13:48) Medications ?Medication ?Instructions ?Recorded ?Confirmed ?Type biotin 5 mg capsule 5 mg PO DAILY 08/07/2508/09 History bisacodyl 10 mg rectal suppository 10 mg IN DAILY PRN constipation 08/07/25 08/09/25 Rx (Laxative (bisacodyl)) #12 ea black cohosh 200 mg capsule 200 mg PO DAILY 08/07/25 0 08/09/25 History calcium citrate 500 mg PO TID 08/07/2508/09 History cholecalciferol (vitamin D3) 50 100 mcg PO DAILY 08/0708/09/25 History mcg (2,000 unit) capsule cyanocobalamin (vitamin B-12) 5,000 mcg PO DAILY 08/0708/09/25 History 5,000 mcg capsule levothyroxine 125 mcg tablet 125 mcg PO DAILY 08/07/25 08/09/25 History multivitamin (Daily Multi-Vitamin 1 tab PO DAILY 08/0708/09/25 History tablet) pantoprazole 40 mg tablet,delayed 40 mg PO DAILY 08/0708/09/25 History release thiamine mononitrate (vit B1) 50 50 mg PO DAILY 08/09/25 History mg tablet vitamin B complex (Vitamins B 1 cap PO DAILY 08/07/25 08/09/25 History Complex capsule) [facility] Medical History (Updated 08/09/25 @ 13:47 by Francie Yusuf LPN) Abnormal mammogram of right breast Abnormal ultrasound of breast history of thoracic fracture Acid indigestion Hyperthyroidism Surgical History Gastric bypass status for obesity History of tubal ligation History of partial hysterectomy History of cholecystectomy Social History Smoking Status: Former smoker Tobacco: How many years used: 32 second hand exposure: Yes quit status: considering quitting alcohol intake: current alcohol intake frequency: 0-2 drinks per day Alcohol type: hard liquor substance use type: does not use what type of physical activity do you participate in: none HPI HPI HPI: The patient is a 59-year-old female who presents today for evaluation of an abnormal right breast mammogram and ultrasound. A less than 1 cm hypoechoic nodule was found in the right breast. This was read as potentially a fibroadenoma but recommended a biopsy. Patient denies any breast issues or comp laints. No nipple discharge or drainage. No family history of breast cancer ROS General General: Yes weight change (loss); No appetite, fatigue, colon cancer, breast cancer or weakness HEENT HEENT: No difficulty swallowing, eye injury, eye surgery, swollen glands or hoarseness Endo Endocrine: Yes thyroid disease; No diabetes mellitus, thyroid cancer, Hair loss, heat intolerance or cold intolerance Skin Skin: No rash or changing moles Breast Breast: Yes abnormal mammogram and abnormal US; No left breast lump, right breast lump, nipple discharge, breast pain or breast enlargement Musc Musculoskeletal: Yes back problems; No arthritis, rheumatoid arthritis, gout or joint pain Cardio Cardiovascular: No murmur, pacemaker, heart disease, atrial fibrillation, high blood pressure, heart attack, heart stent, palpitations, shortness of breath with exertion or chest pain Psych Psychiatric: Yes depression and anxiety; No hearing voices Resp Respiratory: No shortness of breath, No sleep apnea, No cough, No COPD, No asthma, No emphysema andNo wheezing Gastro Gastrointestinal: No abdominal pain, No nausea or vomiting, No diarrhea, No constipation, No blood in stool, Yes acid reflux, No hemorrhoids, No ulcers, No gallbladder problem and No black,tarry stools Van Hematologic: No blood thinners, No blood disorders, No bleeding, No anemia and No blood clots Neuro Neurologic: No numbness, No tingling and No weakness Exam Const General: cooperative, comfortable and no acute distress HENSC Head: normal to inspection and normocephalic Eyes General: appearance normal, both eyes and all related structures Chest Breast inspection: normal inspection of the breasts and normal inspection of theaxillae Other: Ultrasound in the office was utilized to try to identify the lesion noted by radiology. This was not able to be reproduced with absolute certainty. And so biopsy was not performed during the office visit today but instead of recommended this be set up in radiology. Assessment and Plan Assessment and Plan (1) Abnormal mammogram of right breast: Status: Acute Plan: The patient is a 59-year-old female with an abnormal right breast mammogram and ultrasound. A less than 1 cm hypoechoic structure was identified. This was thought to be potentially a fibroadenoma by radiology but recommended biopsy. Iwas unable to successfully and confidently reproduce the lesion on ultrasound inthe office. Instead, I have recommended that we set her up for an ultrasound- guided biopsy to be performed in radiology. We discussed the details of the planned procedure and she wishesto proceed. This will be scheduled in a timelymanner. Plan Details Goals & Barriers: Goals Improve ROM Decrease pain and inflammation Barriers Degenerative changes Work requirements Coding Level of Care Code Off vis,new,level 4 Diagnoses Abnormal mammogram of right breast R92.8 08/09/25 1428 k > Date _ Agus Islas MD Cosigner Signature: Date (if applicable) CC: Dr. Edilberto Loza MD ~ [facility]09-29-2025 Progress note Author Agus Islas [facility] Note Date/Time August 09, 2025 2:14pm [facility] [place] [address] OFFICE VISIT Date of Service: 08/09/25 MR#: [id number] Acct: [id number] Name: JAIME ONEILL Rep #: [id number] : 1965 Provider: Dr. Mingo Islas MD Age/Sex: 59/F Location: [facility] Status: Signed Intake Vital Signs 08/07/25 07:24 08/09/25 13:47 Height 5 ft 5 in 5 ft 5 in Weight: 228 lb 6 oz BMI 38.0 BP 139/89 H Blood Pressure Location Lt radial Position Sitting Respiration 18 Pulse 75 Pulse Source Monitor Temp 97.9 F Temp Source Temporal Pulse Oximetry (%) 98 Oxygen Delivery Method room air Intake Visit Reasons: BIRADS 4 Chief Complaint: BIRADS 4 Is patient in pain?: No Allergies No Known Allergies Allergy (Verified 08/09/25 13:48) Medications ?Medication ?Instructions ?Recorded ?Confirmed ?Type biotin 5 mg capsule 5 mg PO DAILY 08/07/2508/09 History bisacodyl 10 mg rectal suppository 10 mg IN DAILY PRN constipation 08/07/25 08/09/25 Rx (Laxative (bisacodyl)) #12 ea black cohosh 200 mg capsule 200 mg PO DAILY 08/07/25 0 08/09/25 History calcium citrate 500 mg PO TID 08/07/2508/09 History cholecalciferol (vitamin D3) 50 100 mcg PO DAILY 08/0708/09/25 History mcg (2,000 unit) capsule cyanocobalamin (vitamin B-12) 5,000 mcg PO DAILY 08/0708/09/25 History 5,000 mcg capsule levothyroxine 125 mcg tablet 125 mcg PO DAILY 08/07/25 08/09/25 History multivitamin (Daily Multi-Vitamin 1 tab PO DAILY 08/0708/09/25 History tablet) pantoprazole 40 mg tablet,delayed 40 mg PO DAILY 08/0708/09/25 History release thiamine mononitrate (vit B1) 50 50 mg PO DAILY 08/09/25 History mg tablet vitamin B complex (Vitamins B 1 cap PO DAILY 08/07/25 08/09/25 History Complex capsule) [facility] Medical History (Updated 08/09/25 @ 13:47 by Francie Yusuf LPN) Abnormal mammogram of right breast Abnormal ultrasound of breast history of thoracic fracture Acid indigestion Hyperthyroidism Surgical History Gastric bypass status for obesity History of tubal ligation History of partial hysterectomy History of cholecystectomy Social History Smoking Status: Former smoker Tobacco: How many years used: 32 second hand exposure: Yes quit status: considering quitting alcohol intake: current alcohol intake frequency: 0-2 drinks per day Alcohol type: hard liquor substance use type: does not use what type of physical activity do you participate in: none HPI HPI HPI: The patient is a 59-year-old female who presents today for evaluation of an abnormal right breast mammogram and ultrasound. A less than 1 cm hypoechoic nodule was found in the right breast. This was read as potentially a fibroadenoma but recommended a biopsy. Patient denies any breast issues or complaints. No nipple discharge or drainage. No family history of breast cancer ROS General General: Yes weight change (loss); No appetite, fatigue, colon cancer, breast cancer or weakness HEENT HEENT: No difficulty swallowing, eye injury, eye surgery, swollen glands or hoarseness Endo Endocrine: Yes thyroid disease; No diabetes mellitus, thyroid cancer, Hair loss, heat intolerance or cold intolerance Skin Skin: No rash or changing moles Breast Breast: Yes abnormal mammogram and abnormal US; No left breast lump, right breast lump, nipple discharge, breast pain or breast enlargement Musc Musculoskeletal: Yes back problems; No arthritis, rheumatoid arthritis, gout or joint pain Cardio Cardiovascular: No murmur, pacemaker, heart disease, atrial fibrillation, high blood pressure, heart attack, heart stent, palpitations, shortness of breath with exertion or chest pain Psych Psychiatric: Yes depression and anxiety; No hearing voices Resp Respiratory: No shortness of breath, No sleep apnea, No cough, No COPD, No asthma, No emphysema and No wheezing Gastro Gastrointestinal: No abdominal pain, No nausea or vomiting, No diarrhea, No constipation, No blood in stool, Yes acid reflux, No hemorrhoids, No ulcers, No gallbladder problem and No black,tarry stools Van Hematologic: No blood thinners, No blood disorders, No bleeding, No anemia and No blood clots Neuro Neurologic: No numbness, No tingling and No weakness Exam Const General: cooperative, comfortable and no acute distress HENMT Head: normal to inspection and normocephalic Eyes General: appearance normal, both eyes and all related structures Chest Breast inspection: normal inspection of the breasts and normal inspection of theaxillae Other: Ultrasound in the office was utilized to try to identify the lesion noted by radiology. This was not able to be reproduced with absolute certainty. And so biopsy was not performed during the office visit today but instead of recommended this be set up in radiology. Assessment and Plan Assessment and Plan (1) Abnormal mammogram of right breast: Status: Acute Plan: The patient is a 59-year-old female with an abnormal right breast mammogram and ultrasound. A less than 1 cm hypoechoic structure was identified. This was thought to be potentially a fibroadenoma by radiology but recommended biopsy. Iwas unable to successfully and confidently reproduce the lesion on ultrasound inthe office. Instead, I have recommended that we set her up for an ultrasound-guided biopsy to be performed in radiology. We discussed the details of the planned procedure and she wishes to proceed. This will be scheduled in a timelymanner. Plan Details Goals & Barriers: Goals Improve ROM Decrease pain and inflammation Barriers Degenerative changes Work requirements Coding Level of Care Code Off vis,new,level 4 Diagnoses Abnormal mammogram of right breast R92.8 08/09/25 1428 <Electronically signed by Agus lazaro MD> Date _ Agus Islas MD Cosigner Signature: Date (if applicable) CC: Dr. Edilberto Loza MD ~ [facility] [employer] Work Phone: 1(360) 537-950309-27-2025 Discharge summary [facility] Medical Records Department [address] [place] [address] Emergency Department Summary 08/07/25 MR#: [id number] Acct: [id number] Name: JAIME ONEILL Rep #:[id number] : 1965 59 From: Bravo Luz MD PCP: Dr. Edilberto Loza MD Status:DEP E R Location: ED HPI HPI - GI History of Present Illness Chief Complaint: Constipation Narrative Narrative: 59-year-old female past medical history of gastric bypass surgery within the last month a month lauren half, end june, presents with constipation that she has had over the last 3 days. States shehas not had a bowel movement. Sheis nauseated but not vomiting. No fevers or chills. She states sheusually hasbowel movements at least 3 times a day. She started eating regular food. She [facility] Saturday, approximately 5 days ago. She hadbeen doing well until about Saturday of thisweek when she stopped having bowel movements. She states that she is afraid to eat now. Her nausea has resolved. She states when she sits on the toilet and tries to have a bowel movement, she has pain. [facility] Medical History history of thoracic fracture Acid indigestion Hyperthyroidism Home Medications ?Medication ?Instructions ?Recorded ?Last Taken ?Type biotin 5 mg capsule 5 mg PO DAILY 08/07/2508/04 History bisacodyl 10 mg rectal suppository 10 mg IN DAILY PRN constipation 08/07/25 Unknown Rx (Laxative (bisacodyl)) #12 ea black cohosh 200 mg capsule 200 mg PO DAILY 08/07/25 0 08/04/25 History calcium citrate 500 mg PO TID 08/07/2508/04 History cholecalciferol (vitamin D3) 50 100 mcg PO DAILY 08/0708/04/25 History mcg (2,000 unit) capsule cyanocobalamin (vitamin B-12) 5,000 mcg PO DAILY 08/0708/04/25 History 5,000 mcg capsule levothyroxine 125 mcg tablet 125 mcg PO DAILY 08/07/25 08/07/25 History multivitamin (Daily Multi-Vitamin 1 tab PO DAILY 08/0708/04/25 History tablet) pantoprazole 40 mg tablet,delayed 40 mg PO DAILY 08/0708/06/25 History release thiamine mononitrate (vit B1) 50 50 mg PO DAILY 08/04/25 History mg tablet vitamin B complex (Vitamins B 1 cap PO DAILY 08/07/25 08/04/25 History Complex capsule) Allergy/AdvReac Type Severity Reaction Status Date / Time No Known Allergies Allergy Verified 08/07/25 07:24 Surgical History Gastric bypass status for obesity History of tubal ligation History of partial hysterectomy History of cholecystectomy Social History Smoking Status: Former smoker Tobacco: How many years used: 32 second hand exposure: Yes quit status: considering quitting alcohol intake: current alcohol intake frequency: 0-2 drinks per day Alcohol type: hard liquor substance use type: does not use what type of physical activity do you participate in: none ROS ROS ED ROS Narrative Review of systems positive for lack of bowel movement for 3 days. Abdominal pain when straining. Status post gastric bypass by about a month. No fevers orchills. Currently no nausea or vomiting. No true exacerbating or alleviating factors. Decreased p.o. intake. EXAM Physical Exam Narrative Exam Narrative: Afebrile. Vital signs noted. Nontoxic-appearing. Cardiovascular examination reveals a regular rate and rhythm. Lungs are clear to auscultation bilaterally. The abdomen is soft, nontender, with positive bowel sounds. No guarding or rebound. Const Vital Signs: 08/07/25 07:24 08/07/25 11:24 08/07/25 11:25 Temperature 98.3 F 98.3 F Temperature Source Oral Pulse Rate 78 65 65 Respiratory Rate 16 16 16 Blood Pressure 141/81 H 134/81 H 134/81 H Blood Pressure Mean 101 98 98 Pulse Ox 99 99 Oxygen Delivery Method Room Air MDM MDM MDM Narrative Medical decision making narrative: Differential diagnosis includes but not limited to partial small bowel obstruction/bowel obstruction versus constipation versus nonspecific abdominal pain versus pancreatitis. I do feel she requires CT imaging with p.o. and IV contrast as she is status post gastric bypass. She is no longer taking opiates. She may have dehydration or other electrolyte imbalance as she states she has had decreased p.o. intake. I reviewed her laboratory work and she has normal white count of 5.8 with hemoglobin 12.5, hematocrit 38.1, platelet count normal at 163. CMP is remarkable for creatinine low at 0.69 with a normal BUN of 9, no evidence of dehydration. Normal sodium and potassium. LFTs show slightly elevated AST andALT at 49 and 55 respectively. I think is nonspecific. Lipase normal at 21 so I doubt pancreatitis.Urinalysis shows contaminated specimen with 10-25 epithelial cells. I do not feel antibiotics are indicated. She is slightly dehydrated with 15 ketones. I discussed the patient with Dr. Anderson. He suggested increasing MiraLAX, and also having the patient try enemas versus suppositories. I feel she can be discharged to follow-up. Return instructions to the emergency department were reviewed. Disposition is discharged home in stable condition. History & Record Review Discussion w/independent historian: Patient Additional record(s) reviewed:: Prior ED visit (Noncontributory to current chiefcomplaint. Previousvisit remote.) Lab Data Attestation: I reviewed the patient's lab results. Labs: Laboratory Results - last 24 hr 08/07/25 08/07/25 07:55 08:10 WBC 5.8 RBC 4.18 L Hgb 12.5 Hct 38.1 MCV 91.1 MCH 29.9 MCHC 32.8 RDW Std Deviation 45.6 H RDW Coeff of Julio 13.6 Plt Count 163 MPV 12.0 Immature Gran % (Auto) 0.200 Neut % (Auto) 69.7 Lymph % (Auto) 18.7 L [place] % (Auto) 9.2 Eos % (Auto) 1.7 Baso % (Auto) 0.5 Absolute Neuts (auto) 4.1 Absolute Lymphs (auto) 1.09 Nucleated RBC % 0 Sodium 142 Potassium 3.4 Chloride 103 Carbon Dioxide 25.6 Anion Gap 14 BUN 9 Creatinine 0.69 L Estim Creat Clear Calc 102.24 Est GFR (MDRD) Non-Af 99 BUN/Creatinine Ratio 13.2 Glucose 105 H Calcium 9.2 Total Bilirubin 0.49 AST 49 H ALT 55 H Alkaline Phosphatase 96 Total Protein 7.4 Albumin 4.2 Globulin 3.1 Albumin/Globulin Ratio 1.4 Lipase 21 Urine Color Yellow Urine Clarity Clear Urine pH 6.0 Ur Specific [place] 1.020 Urine Protein 15 H Urine Glucose (UA) Normal Urine Ketones 15 H Urine Occult Blood 10 H Urine Nitrite Negative Urine Bilirubin Negative Urine Urobilinogen 1 H Ur Leukocyte Esterase 500 H Urine RBC 0 SEEN Urine WBC 10-25 SEEN Ur Squamous Epith Cells 10-25 SEEN Urine Bacteria 2+ Urine Mucus 1+ Radiography Diagnostic Testing: Clinical Impression(s) from Imaging Studies Abdomen/Pelvis CT 08/07/25 07:47 IMPRESSION: A punctate stone at the lower pole of the left kidney. No hydronephrosis. Otherwise, no acute abdominopelvic abnormalities. Reading Location: [facility] Discharge Plan Triage Chief Complaint: Constipation ED Provider: Bravo Luz Dx/Rx/DC Orders Clinical Impression: Constipation, Abdominal pain, History of gastric bypass Instructions: Bariatric Surg Post Op 6 Weeks, Bariatric Surg Lifestyle Changes,ED Abdominal Pain Unkn Cause Fem, ED Constipation (Adult) Prescriptions: New bisacodyl [Laxative (bisacodyl)] 10 mg suppository 10 mg IN DAILY PRN (Reason: constipation) Qty: 12 0RF No Action pantoprazole 40 mg tablet,delayed release (DR/EC) 40 mg PO DAILY levothyroxine 125 mcg tablet 125 mcg PO DAILY multivitamin [Daily Multi-Vitamin] Tablet 1 tab PO DAILY calcium citrate 250 mg calcium tablet 500 mg PO TID thiamine mononitrate (vit B1) 50 mg tablet 50 mg PO DAILY cyanocobalamin (vitamin B-12) 5,000 mcg capsule 5,000 mcg PO DAILY cholecalciferol (vitamin D3) 50 mcg (2,000 unit) capsule 100 mcg PO DAILY black cohosh 200 mg capsule 200 mg PO DAILY biotin 5 mg capsule 5 mg PO DAILY vitamin B complex [Vitamins B Complex] Capsule 1 cap PO DAILY Primary Care Provider: Edilberto Loza Chi Referrals: Monica [Other] - 1 Week if not improving Edilberto Loza Chi, MD [Primary Care Provider, Geriatrics] Activity Restrictions/Additional Instructions: Increase your MiraLAX to twice a day. Follow-up with your surgeon, Dr. Anderson in 1 week if not improving. Return with fever, nausea and vomiting, increased pain, new or worsening symptoms. Print Language: Austrian Disposition Disposition: Home, Self Care Discharge Date/Time: 08/07/25 11:26 What to do if you have Problems For any increased pain, shortness of breath, bleeding, nausea or vomiting, chestpain, or any unexpected problems, contact your Primary Care Provider. Call [facility] ([phone]) or report tothe closest Emergency Room. Call 911 if necessary. 08/07/25 1158 Cosigner Signature (if applicable): CC: Dr. Edilberto Loza MD ~ Signed [facility]09-27-2025 Radiology Diagnostic study note [facility] Imaging Services [address] [place] [address] Abdomen/Pelvis WITH Contrast MR#: [id number] Acct: [id number] Name: JAIME ONEILL Rep #: [id number] : 1965 F 59 From: Hu Sahu MD PCP: Dr. Edilberto Loza MD Status: REG E R Study:Abdomen/Pelvis WITH Contrast Date of Ex am: 08/07/25 Exam# [id number] Ordering Dr: Bravo Luz MD PROCEDURE: ABDOMEN/PELVIS WITH CONTRAST 08/07/2025 REASON FOR EXAM: CONSTIPATION, PAIN STATUS POST GASTRIC BYPASS TECHNIQUE: Procedure Code: CTABDPELW Modality: CT Procedure: ABDOMEN/PELVIS WITH CONTRAST Coronal and Sagittal reconstruction series were provided. CONTRAST: Isovue 370 VOLUME: 100 mL One or more dose reduction techniques were used (e.g., Automated exposure control, adjustment of the mA and/or kV according to patient size, use of iterative reconstruction technique. RADIATION DOSE SUMMARY: CTDlvol: 23.75 mGy DLP: 1301.57 mGycm COMPARISON: None. FINDINGS: Lung bases: Clear. Liver: Liver steatosis. Focal areas of fatty infiltration near the ligamentum teres. Gallbladder: Status post cholecystectomy. No biliary dilation. Spleen: Unremarkable. Pancreas: Unremarkable. Adrenals: Unremarkable. Kidneys: A 1 mm stone at the lower pole of the left kidney. No hydronephrosis. No nephrolithiasis. Bladder: Unremarkable. Reproductive Organs: Unremarkable. Bowel: Status post gastric bypass surgery. Colonic diverticulosis. No bowel wall thickening. No bowel obstruction. Appendix: Unremarkable. Lymph nodes: No lymphadenopathy. Vasculature: No aneurysm. Peritoneum / Retroperitoneum: No free air or free fluid. Bones: No acute bony abnormalities. CT/Abdomen/Pelvis WITH Contrast IMPRESSION: A punctate stone at the lower pole of the left kidney. No hydronephrosis. Otherwise, no acute abdominopelvic abnormalities. Reading Location: [facility] CC: Dr. Bravo Luz MD; Dr. Edilberto Loza MD ~ Garbage Truck Driver: Signed [facility]09-22-2025 History of Present illness Narrative* Katlyn Pryor Suzette, RD - 08/02/2025 10:00 AM EDT [facility] 1 MONTH POST-OPERATIVE DIETITIAN VISIT Date: 08/02/25 Surgeon: Dr. Santiago Current Medications: has a [...] discussed. Portions are adequate for current diet ( - cup or 2- 4 oz) Patient does consume 2-3 small meals daily. Patient reports portion size of cup (2oz) Patient does consume 2-3 small snacks daily. Patient reports portion size of cup (2oz) Protein requirements discussed. currently consuming [...] to exercise when cleared. Type of planned exercisewalking and gym. She was reminded that regular [...] hesitate to call or reach out via [employer] with any questions or concerns. Visit Completed by: Katlyn Bradford MS, RDN, LD * Jordon Santiago, DO - 08/02/2025 10:00 AM EDT HPI, PHYSICAL EXAMINATION & PLAN POST-OP HPI: [...] Examination: BP 116/76 Pulse 76 Temp 36.2 C (97.2 F) Ht 5' 5 (1.651 m) Wt 228 lb 12.8 oz (104 kg) Comment: BCC BMI 38.07 kg/m Physical Exam Constitutional: Appearance: Normal appearance. [...] (500 mcg) under the tongue daily. Place 500mcg under the tongue to dissolve once daily LEVOTHYROXINE (SYNTHROID, LEVOXYL) 125 MCG TABLET Take 125 mcg by mouth daily. MULTIPLE VITAMINS-MINERALS (CENTRUM ADULTS) TABLET Take 2 tablets by mouth daily. NYSTATIN (MYCOSTATIN) 381740 UNIT/ML SUSPENSION Take 5 mL (500,000 Units) [...] with serious comorbidity and body mass index (BMI)of 38.0 to 38.9 in adult ([facility]) 5. Gastroesophageal reflux disease without esophagitis Plan: [...] (500 mcg) under the tongue daily. Place 500mcg under the tongue to dissolve once daily [...] not taking: Reported on 08/02/2025) nystatin (Mycostatin) 748169 UNIT/ML suspension Take 5 mL (500,000 Units) [...] encounter medications on file as of 08/02/2025. documented in this [facility]09-16-2025 Radiology Diagnostic study note [facility] Imaging Services [address] [place] [address] Breast Limited Unilateral MR#: [id number] Acct: [id number] Name: JAIME ONEILL Rep #: [id number] : 1965 F 59 From: Amrit Santos MD PCP: Dr. Edilberto Loza MD Status: SHAAN JADE Study:Breast Limited Unilateral Date of Exam: 07/27/25 Exam# [id number] Ordering Dr: Edilberto Loza MD PROCEDURE: BREAST LIMITED UNILATERAL 07/27/2025 REASON FOR EXAM: F, Age 59 y/o , ABN MAMM COMPARISON: Prior mammogram dated July 23, 2025.. TECHNIQUE: Procedure Code: USBRSTLIMIT Modality: US Procedure: BREAST LIMITED UNILATERAL FINDINGS: The mammographic abnormality corresponds to a 1.1 cm x 0.7 cm by 0.5 cm well- defined hypoechoic solid nodule at the 4 o'clock position of the breast at 1 cm from the nipple. 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 Biopsy recommended. US/Breast Limited Unilateral IMPRESSION: The mammographic abnormality corresponds to a 1.1 cm x 0.7 cm x 0.5 cm well- defined hypoechoic solid nodule at the 4 o'clock position of the breast at 1 cm from the nipple. 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 Biopsy recommended. BI-RADS 4: SUSPICIOUS RECOMMENDATION: Biopsy Recommended Reading Location: [place] [address] CC: Dr. Edilberto Loza MD ~ Garbage Truck Driver: Signed [facility]09-12-2025 Telephone encounter Note* Telephone Encounter - Ana Wasserman RD - 07/23/2025 10:55 AM EDT 06/30/25 LRYGB W/ HH MP Outside Labs [facility] 07-08-25: Elevated AST: 42 and ALT: 66 (noting pt just had surgery 8 days prior to lab draw) Elevated B12: 1798 Elevated iron: 41 Sent patient message via [employer] to assess vitamin regimen. Pending response. -sent list of low iron foods -encouraged adequate hydration for B12 [id number] Miscellaneous Notes* Telephone Encounter - Ana Wasserman RD - 07/23/2025 10:55 AM EDT 06/30/25 LRYGB W/ HH MP Outside Labs [facility] 07-08-25: Elevated AST: 42 and ALT: 66 (noting pt just had surgery 8 days prior to lab draw) Elevated B12: 1798 Elevated iron: 41 Sent patient message via [employer] to assess vitamin regimen. Pending response. -sent list of low iron foods -encouraged adequate hydration for B12 documented in this [facility]09-07-2025 Radiology Diagnostic study note [facility] Imaging Services [address] [place] [address] Lung Screening MR#: [id number] Acct: [id number] Name: JAIME ONEILL Rep #: [id number] : 1965 F 59 From: Viral Jarquin MD PCP: Dr. Edilberto Loza MD Status: REG Mae JADE Study:Low Dose CT Lung Screening Date of Exam : 07/17/25 Exam# [id number] Ordering Dr: Edilberto Loza MD PROCEDURE: LOW DOSE CT LUNG SCREENING 07/17/2025 REASON FOR EXAM: FORMER SMOKER, OTHER DISORDERS OF THE LUNG. TECHNIQUE: Procedure Code: CTLUNGSCREEN Modality: CT Procedure: LOW DOSE CT LUNG SCREENING Coronal and Sagittal reconstruction series were provided. One or more dose reduction techniques were used (e.g., Automated exposure control, adjustment of the mA and/or kV according to patient size, use of iterative reconstruction technique). REFERENCE LINK: [employer] Lung-RADS COMPARISON: CT images dated 03/22/2021. the corresponding report is not available. FINDINGS: A 6 mm slightly linear density is noted in the right lower lobe of the lungs (series 2 image 139), unchanged. The remainder of the lungs is clear. The unenhanced heart is normal in size. The unenhanced great vessels appear grossly unremarkable. No thoracic lymphadenopathy. Calcified right hilar lymph nodes. Cholecystectomy. Postsurgical changes involving the stomach are noted, probablya gastric bypass. Mild thoracic spondylosis. CT/Low Dose CT Lung Screening IMPRESSION: Lung-RADS Category: 2 BENIGN (BASED ON IMAGING FEATURES OR INDOLENT BEHAVIOR). RECOMMEND 12-MONTH SCREENING LDCT. Other Significant Findings: See above. Reading Location: [facility] CC: Dr. Edilberto Loza MD ~ Garbage Truck Driver: Signed [facility]08-25-2025 History of Present illness Narrative* Katlyn Roya Bradford, RD - 07/05/2025 8:40 AM EDT [facility] 1 WEEK VISIT POST-OPERATIVE DIETITIAN Date: [...] completed by: Katlyn Bradford MS, RDN, LD * Jordon Santiago, - 07/05/2025 8:40 AM EDT Images from the original note were [...] water until 1 month office visit. 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 Patient [...] KELL LOZA MD - [address] [address] - [phone] And if not done at a [facility] Facility, please send to: [place] [id number] Patient Name: Jaime Oneill - 1965 Order Created by : Doreen Neely MA Standing Status: Future Number of Occurrences: 1 Expected Date: 07/14/2025 Expiration Date: 06/30/2026 Folate These orders are set for an approximate date - they can be drawn up to 3 months prior to the Expected Date on this Req. Please send results to: KELL LOZA MD - [address] [facility] [address] [facility] [address] - [phone] And if not done at a [facility] Facility, please send to: [address] [address] Patient Name: Jaime Oneill - 1965 Order Created by : Doreen Neely MA Standing Status: Future Number of Occurrences: 1 Expected Date: 07/14/2025 Expiration Date: 06/30/2026 Iron These orders are set for an approximate date - they can be drawn up to 3 months prior to the Expected Date on this Req. Please send results to: MD Saurabh CORTES [address] [facility] [id number] - [phone] And if not done at a [facility] Facility, please send to: [place] [address] Patient Name: Jaime Wiley 1965 Order Created by : Doreen Neely MA Standing Status: Future Number of Occurrences: 1 Expected Date: 07/14/2025 Expiration Date: 06/30/2026 Ferritin These orders are set for an approximate date - they can be drawn up to 3 months prior to the Expected Date on this Req. Please send results to: MD Saurab[address] [facility] [address] - [phone] And if not done at a [facility], please send to: [place] [address] Patient Name: Jaime Wiley 1965 Order Created by : Doreen Neely MA Standing Status: Future Number of Occurrences: 1 Expected Date: 07/14/2025 Expiration Date: 06/30/2026 Magnesium These orders are set for an approximate date - they can be drawn up to 3 months prior to the Expected Date on this Req. Please send results to: MD Saurabh CORTES [address] [facility] [address] - [phone] And if not done at a [facility] Facility, please send to: [place] [address] Patient Name: Jaime Oneill - 1965 Order Created by : Doreen Neely MA Standing Status: Future Number of Occurrences: 1 Expected Date: 07/14/2025 Expiration Date: 06/30/2026 Vitamin B12 These orders are set for an approximate date - they can be drawn up to 3 months prior to the Expected Date on this Req. Please send results to: MD Saurabh CORTES [address] [place] [phone] - [phone] And if not done at a [facility] Facility, please send to: [place] [address] Patient Name: Jaime Oneill - 1965 Order Created by : Doreen Neely MA Standing Status: Future Number of Occurrences: 1 Expected Date: 07/14/2025 Expiration Date: 06/30/2026 Comprehensive metabolic panel These orders are set for an approximate date - they can be drawn up to 3 months prior to the Expected Date on this Req. Please send results to: MD Saurabh CORTES [address] [place] [address] - [phone] And if not done at a [facility] Facility, please send to: [place] [address] Patient Name: Jaime Oneill - 1965 Order Created by : Doreen Neely MA Standing Status: Future Number of Occurrences: 1 Expected Date: 07/14/2025 Expiration Date: 06/30/2026 CBC These orders are set for an approximate date - they can be drawn up to 3 months prior to the Expected Date on this Req. Please send results to: MD Saurabh CORTES [address] [place] [phone] - [phone] And if not done at a [facility] Facility, please send to: [address], [facility] Patient Name: Jaime Oneill - 1965 Order [...] (500 mcg) under the tongue daily. Place 500mcg under the tongue to dissolve once daily MULTIPLE VITAMINS-MINERALS (CENTRUM ADULTS) TABLET Take 2 tablets by mouth daily. NYSTATIN (MYCOSTATIN) 398262 UNIT/ML SUSPENSION Take 5 mL (500,000 Units) [...] tablet (4 mg) by mouth every 8 hoursas needed for nausea for up to 7 days. OXYCODONE (ROXICODONE) 5 MG IMMEDIATE RELEASE TABLET Take 1 tablet (5 mg) by mouth every 6 hours asneeded for severe pain (7-10) for up to [...] tablet (4 mg) by mouth every 8 hoursas needed for nausea for up to 7 days. 21 tablet 0 oxyCODONE (Roxicodone) 5 MG immediate release tablet Take 1 tablet (5 mg) by mouth every 6 hours asneeded for severe pain (7-10) for up to [...] daily. PATIENT STATES LAST TAKEN ON 06/19/25 (Patientnot taking: Reported on 07/05/2025) BLACK COHOSH PO [...] (500 mcg) under the tongue daily. Place 500mcg under the tongue to dissolve once daily 30 tablet 11 Multiple Vitamins-Minerals (Centrum Adults) tablet Take 2 tablets by mouth daily. 60 tablet 11 nystatin (Mycostatin) 121109 UNIT/ML suspension Take 5 mL (500,000 Units) [...] [] celecoxib (CeleBREX) capsule 400 mg [] gwtPNSJEelfxx-darlmqlotve-ylxxyqkbgpk (TAP) syringe [] diatrizoate meglumine-sodium (Gastrografin) 66-10 [...] file as of 07/05/2025. documented in this [facility]08-21-2025 NoteDischarge Summary Jaime Oneill : 1965 ADMIT DATE: 06/30/2025 DISCHARGE DATE: 07/01/25 PRIMARY CARE PHYSICIAN: KELL LOZA MD VISIT STATUS: Admission CODE STATUS: Prior DISCHARGE DIAGNOSES: Principal Problem: Morbid obesity with BMI of 40.0-44.9, adult ([facility]) Active Problems: Obesity, morbid, BMI 40.0-49.9 ([facility]) BMI Classification: Estimated body mass index is [...] RECOMMENDED NEXT STEPS: Follow up with Dr. Santiago in two weeks DISCHARGE MEDICATIONS: Medication List [...] Your Medications These medications were sent to [facility] [address] [place], [place] [id number] Hours: Saturday to Saturday 10 am to 6 pm ondansetron ODT 4 MG disintegrating tablet oxyCODONE 5 MG immediate release tablet DIET: No diet orders on file ACTIVITY: No heavy lifting. COMPLEXITY OF FOLLOW UP: [x] Moderate Complexity: follow up within 7-14 calendar days (43377) [] Severe Complexity: follow up within 7 calendar days (625[address]) FOLLOW UP TESTING, PENDING RESULTS OR REFERRALS AT TRANSITIONAL CARE VISIT: [] Yes [x] No PENDING STUDIES: No DISPOSITION: Home FACILITY/HOME CARE AGENCY NAME: m/a Follow up with Kell Loza MD [address] [facility] [address] [facility] [phone] Jordon Santiago [address] [facility] [address] Follow up in 2 week(s) postop check DISCHARGE TIME: > 30 minutes SIGNED: Antoine Stiles MD General Surgery Resident 07/02/25 6:30 AM This note may have been dictated using [employer] Edition 2.6 and/or Language Logistics Voice Recognition Feature. The document was proofread; however, unrecognized voice recognition bottle sorter errors may be present. [facility]08-21-2025 History of Present illness Narrative* Jayden Wyatt - 07/01/2025 8:44 AM EDT Preliminary negative for leak. documented in this encounterSLima Memorial HospitalZqhzrx00-53-4123 Nurse Note* Cricket Pierce RN - 06/30/2025 3:04 PM EDT Virtual Admission completed. Patient instructed to use call light to call for assistance if needed. [facility]-1158 Nurse Note* Cricket Pierce RN - 06/30/2025 3:04 PM EDT Virtual Admission completed. Patient instructed to use call light to call for assistance if needed. documented in this [facility]08-20-2025 Hospital Discharge instructions* Discharge Instructions* Gaye Rodrigez RN - 06/30/2025 1:21 PM [...] (e.g., swelling, redness, drainage or pain), please notifyyour gift shop manager. Take your temperature twice a day for the first postoperative week. Call if your temperature is greater than 101 F. A fever could be a sign of infection or surgical complication. Resume your home medications as directed by your surgeon and your gift shop manager. Make an appointment with your prescribing [...] required immediately. It is recommended that you shouldwalk for 5 minutes every hour you are awake to help decrease the risk of blood clots after surgery.Walking helps prevent blood clots from forming. A [...] cleared by your surgeon at your one monthappointment. Use your incentive spirometer from the hospital for the first postoperative week as instructed, tentimes every other hour while awake. Prior to [...] this device after surgery. Please call the [facility] at [phone] if you have any questions or concerns during business hours: Saturday through Saturday, 8 a.m. to 4:30 p.m. The answering service may be called during non- business hours at [phone]. If you have a medical emergency, call [...] office visits with your surgeon at the [facility] are located in the discharge folder. These [...] <15 grams of sugar) Low fat Milk Sudanese Yogurt Sugar free Pudding Cream of Wheat Strained, Creamy Soups *Be sure to continue to sip clear liquids throughout the day to reach goal of 64 ounces, waiting 30minutes before and after meals to drink. You will continue to follow the full liquid diet until after you meet with your dietitian during your 1 week post-op office visit. The next diet phases will be reviewed and discussed with your duringthat visit. If you have questions about your diet(s), please contact the Bariatric Dietitians at [phone]. documented in this [facility]08-20-2025 Nurse Note* Perioperative Nursing Note - Cecile Newby RN - 06/30/2025 11:09 AM EDT Report called to Saray BENITO on H6. Pt's family updated. [id number] Miscellaneous Notes* Perioperative Nursing Note - Cecile Newby RN - 06/30/2025 11:09 AM EDT Report called to Saray BENITO on H6. Pt's family updated. * Perioperative Nursing Note - Melanie Reis RN - 06/30/2025 10:46 AM EDT Patients daughter February updated via phone documented in this [place] [address]20-[address]25 Nurse Note* Perioperative Nursing Note - Melanie Reis RN - 06/30/2025 10:46 AM EDT Patients daughter February updated via phone [address] StreetYritrn30-27-0482 NotePatient: Jaime Oneill Procedure Summary Date: 06/30/25 Room / Location: [address] Operating Room Anesthesia Start: 729 Anesthesia Stop: 956 Procedures: LAPAROSCOPIC DIANA-EN-Y GASTRIC BYPASS (Abdomen) LIVER BIOPSY (Abdomen) HIATAL HERNIA REPAIR (Abdomen) Diagnosis: Morbid obesity with BMI of 40.0-44.9, adult ([facility]) Surgeons: Jordon Santiago DO Responsible Provider: Jayden [...] discharged once all PACU criteria has been met.[facility] [id number] NotePatient: Jaime Oneill Procedure Summary Date: 06/30/25 Room / Location: [address] Operating Room Anesthesia Start: 729 Anesthesia [...] factors for PONV (4556F) Patient received at leaset 2 prophylactic Rx PONV anti-emtic agents of [...] Allowed opportunity for questions and acknowledgement of understanding.[facility]08-20-2025 NoteAirway Date/Time: 06/30/2025 7:44 AM Reason: scheduled General Information and Staff Patient location during procedure: Procedural Resident/VP CARDIOVASCULAR SERVICE LINE: KENTON Mckenna CRNA Performed: VP CARDIOVASCULAR SERVICE LINE and ANNMARIE Patient Condition Indications for airway management: anesthesia Patient position: sniffing Sedation level: Asleep Final Airway Details Final airway type: endotracheal airway Successful airway: ETT Cuffed: yes Adjuncts used in placement: intubating stylet Endotracheal tube insertion site: oral Blade: Mitchell Blade size: #3 ETT size (mm): 7.0 Placement verified by: capnometry Measured from: lips ETT to lips (cm): 22 Number of attempts at approach: [address] [place], [place] [address]-20-2025 Note Peripheral Block Time Out: 06/30/2025 7:36 AM Patient location during procedure: Procedural Start time: 06/30/2025 7:36 AM End time: 06/30/2025 7:36 AM Reason for block: at surgeon's request and post-op pain management Staffing Performed: VICKI Resident/VP CARDIOVASCULAR SERVICE LINE: KENTON Luciano CRNA Preanesthetic Checklist Completed: patient [...] supine Prep: ChloraPrep Patient monitoring: heart rate, radiation monitor, continuous pulse ox and continuous capnometry O2: [...] plane. and Local anesthetic injected without difficultyMedications ullSCKASmlhrl-hhpwitrtvar-ffxdjtzrqpu (TAP) syringe - Injection 60 mL - 06/30/2025 7:36:00 [facility]08-20-2025 Attending History and physical note* Jordon Santiago DO - 06/30/2025 7:16 AM EDT H&P reviewed. The patient was examined and there are no changes to the H&P. Source Note - Lorena Griffith APRN - MECHANICAL INSULATOR - 06/22/2025 2:00 PM EDT Images from the original note were not included. Comprehensive Pre Surgical History and Physical ? Name: Jaime Oneill : 1965 (Age-59 y.o.) Date of Service: Pt seen/examined on 06/22/2025 Procedure Information Date/Time: 06/30/25 0730 Procedures: LAPAROSCOPIC DIANA-EN-Y GASTRIC BYPASS (Abdomen) - Length of procedure: 180min LIVER BIOPSY (Abdomen) HIATAL HERNIA REPAIR, POSSIBLE OPEN (Abdomen) Location: [facility] OR Operating Room Surgeons: Jordon Santiago DO Chief Complaint: Morbid obesity with BMI of 40.0-44.9, adult ([facility]) [E66.01, Z68.41] ASSESSMENT/PLAN: Plan based on PAT protocol for this intermediate level 2 risk procedure/surgery. Based on the belowevaluation, the benefits of the planned procedure likely exceed the risks. The patient is medicallyoptimized to proceed with the planned procedure without [...] 03/17/25 Eval 03/02/25. Dietitian [x] Dashawn Workman Mold Cutting Machine Operator Cleared: 02/25/25 Cardiology [x] Jf Roe APRN [...] There is only 1 note from July thatis still good but now too large of [...] who we are asked to see/evaluate by [place] [address] for pre-operative evaluation prior to ? LAPAROSCOPIC [...] Bypass. She is here today to review thedetails of surgery prior to their date of surgery: 06/30/25 The patient acknowledges and understands the risks, benefits, and options we have discussed, as outlined in the Additional Informed Consent for this procedure. Patient also understands the importanceof pre and post-operative recommendations, including the Pre-Operative diet and regular post-operative follow up care. The importance of ambulation and incentive spirometry was also discussed. All questions of this patient and any family members present have been answered to their satisfaction. Patient denies exertional chest pain/shortness of breath. Patient denies hx of CAD, Cardiac stents, CHF, PA, TIA/CVA, diabetes, COPD, asthma, MICHELLE, DVT/PE or [...] TAKEN ON 06/19/25 Yes Historical Provider, MD MURTAZA PITTMAN PO Take by mouth daily. PATIENT STATES [...] Pressure Mother May sterlin Obesity Father Jason Ralphe Diabetes Father Jason Ralphe High Blood Pressure Father Jason Josue Heart disease Father Jason Ralphe Stroke Father Jason Josue Heart disease Sister Zaynab Delroy Obesity Sister Zaynab Delroy Heart disease Brother Jason High Blood Pressure Brother Jason Cosigned by Nithin Zelaya DO at 06/22/2025 9:48 PM EDT [facility] Phone: [phone] 171-575808-20-2025 History and physical note* Jordon Santiago DO - 06/30/2025 7:16 AM EDT H&P reviewed. The patient was examined and there are no changes to the H&P. Source Note - Lorena Griffith APRN - MECHANICAL INSULATOR - 06/22/2025 2:00 PM EDT Images from the original note were not included. Comprehensive Pre Surgical History and Physical ? Name: Jaime Oneill : 1965 (Age-59 y.o.) Date of Service: Pt seen/examined on 06/22/2025 Procedure Information Date/Time: 06/30/25 0730 Procedures: LAPAROSCOPIC DIANA-EN-Y GASTRIC BYPASS (Abdomen) - Length of procedure: 180min LIVER BIOPSY (Abdomen) HIATAL HERNIA REPAIR, POSSIBLE OPEN (Abdomen) Location: [facility] OR [address] [place] [address] Operating Room Surgeons: Jordon Santiago DO Chief Complaint: Morbid obesity with BMI of 40.0-44.9, adult (HCC) [E66.01, Z68.41] ASSESSMENT/PLAN: Plan based on PAT protocol for this intermediate level 2 risk procedure/surgery. Based on the belowevaluation, the benefits of the planned procedure likely exceed the risks. The patient is medicallyoptimized to proceed with the planned procedure without [...] 03/17/25 Eval 03/02/25. Dietitian [x] Dashawn Workman Mold Cutting Machine Operator Cleared: 02/25/25 Cardiology [x] Jf Roe APRN [...] There is only 1 note from July thatis still good but now too large of [...] who we are asked to see/evaluate by [facility] 02 for pre-operative evaluation prior to [...] Bypass. She is here today to review thedetails of surgery prior to their date of surgery: 06/30/25 The patient acknowledges and understands the risks, benefits, and options we have discussed, as outlined in the Additional Informed Consent for this procedure. Patient also understands the importanceof pre and post-operative recommendations, including the Pre-Operative diet and regular post-operative follow up care. The importance of ambulation and incentive spirometry was also discussed. All questions of this patient and any family members present have been answered to their satisfaction. Patient denies exertional chest pain/shortness of breath. Patient denies hx of CAD, Cardiac stents, CHF, PA, TIA/CVA, diabetes, COPD, asthma, MICHELLE, DVT/PE or [...] LAST TAKEN ON 06/19/25 Yes Historical ProviderMD BLACK COHOSH PO Take by mouth daily. [...] May jaun High Blood Pressure Mother May jaun Obesity Father Jason Josue Diabetes Father Jason Josue High Blood Pressure Father Jason Ralphe Heart disease Father Jason Josue Stroke Father Jason Josue Heart disease Sister Zaynab Potts Obesity Sister Zaynab Delroy Heart disease Brother Jason High Blood Pressure Brother Jason Cosigned by Nithin Zelaya DO at 06/22/2025 9:48 PM EDT documented in this [facility]08-20-2025 NoteH&P reviewed. The patient was examined and there are no changes to the H&P.[facility] 06-22-2025 NotePatient: Jaime Oneill Procedure Information Date/Time: 06/30/25729 Procedures: LAPAROSCOPIC DIANA-EN-Y GASTRIC BYPASS (Abdomen) - Length of procedure: 180min LIVER BIOPSY (Abdomen) HIATAL HERNIA REPAIR, POSSIBLE OPEN (Abdomen) Location: [facility] OR [address] [place] [address] Operating Room Surgeons: Jordon Santiago DO Relevant [...] protocol. General eras Rin Benitez APRN - MECHANICAL INSULATOR MICHELLE Screening STOP-Bang Total Score: 4 Labs: [...] May jaun High Blood Pressure Mother May jaun Obesity Father Jason Josue Diabetes Father Jason Josue High Blood Pressure Father Jason Josue Heart disease Father Jason Josue Stroke Father Jason Joseu Heart disease Sister Zaynab Potts Obesity Sister Zaynab Potts Heart disease Brother Jason High Blood Pressure Brother [facility]08-12-2025 Note Comprehensive Pre Surgical History and Physical ? Name: Jaime Oneill : 1965 (Age-59 y.o.) Date of Service: Pt seen/examined on 06/22/2025 Procedure Information Date/Time: 06/30/25 0730 Procedures: LAPAROSCOPIC DIANA-EN-Y GASTRIC BYPASS (Abdomen) - Length of procedure: 180min LIVER BIOPSY (Abdomen) HIATAL HERNIA REPAIR, POSSIBLE OPEN (Abdomen) Location: [facility] OR [address] [place] [address] Operating Room Surgeons: Jordon Santiago DO Chief [...] 03/17/25 Eval 03/02/25. Dietitian [x] Dashawn Workman Mold Cutting Machine Operator Cleared: 02/25/25 Cardiology [x] Jf Roe APRN [...] who we are asked to see/evaluate by [facility] 02 for pre-operative evaluation prior to ? LAPAROSCOPIC DIANA-EN- (more content not included)...[facility] 06-22-2025 NoteComprehensive Pre Surgical History and Physical ? Name: Jaime Oneill : 1965 (Age-59 y.o.) Date of Service: Pt seen/examined on 06/22/2025 Procedure Information Date/Time: 06/30/25 0730 Procedures: LAPAROSCOPIC DIANA-EN-Y GASTRIC BYPASS (Abdomen) - Length of procedure: 180min LIVER BIOPSY (Abdomen) HIATAL HERNIA REPAIR, POSSIBLE OPEN (Abdomen) Location: [facility] OR Operating Room Surgeons: Jordon Santiago [...] 03/17/25 Eval 03/02/25. Dietitian [x] Dashawn Workman Mold Cutting Machine Operator Cleared: 02/25/25 Cardiology [x] Jf Roe APRN [...] # Method of monitoring : labs, ekg [facility] Protocol referenced includes: 1. Anesthesia Lab Protocol Orders 2. Perioperative Cardiovascular Risk Assessment 3. Anesthesia Assessment 4. Pain Assessment and Acute Pain Service Consult (if appropriate) 5. Shower/Wash Order (for designated surgeries) 6. MICHELLE Screen and Sleep Clinic Referral (if appropriate) History Of Present Illness: 59 y.o. female who we are asked to see/evaluate by [place] [id number] for pre-operative evaluation prior to ? LAPAROSCOPIC DIANA-EN- (more content not included)...[facility] 06-07-2025 History of Present illness Narrative* Gaye Rodrigez RN - 06/07/2025 9:10 AM EDT DOS: 06/30/25 Procedure: RYGB PAT Date: 06/22/25 [...] medication instructions will be given at their [facility] appointment? yes Patient aware of their pre-op [...] the importance of adequate fluid intake and followingthe diet protocol. Activity restrictions and incision care [...] detail in education manual. Patient aware that post- op diet is restrictive and that adherence is vital to success. Patient aware the compliance with post-op vitamins & supplements are for life and essential fornutritional health. Vitamin protocol discussed with patient, patient aware that post-op vitamins are listed in education manual. * Jordon Santiago DO - 06/07/2025 9:10 AM EDT Images from the original note were not included. Patient History/Assessment Summary: The patient is a 59 y.o. year old female with morbid obesity, who stands Height: 5' 5 (165.1 cm) tall with a weight of Weight: 253 lb 3.2 oz (115 kg) , resulting in a BMI of Body mass index is 42.13kg/m .. The patient is scheduled to undergo [...] Bypass. She is here today to review thedetails of surgery prior to their date of surgery: 06/30/25 The patient acknowledges and understands the risks, benefits, and options we have discussed, as outlined in the Additional Informed Consent for this procedure. Patient also understands the importanceof pre and post-operative recommendations, including the Pre-Operative [...] compliance, behavior modifications and diet changes, protein andvitamin supplementation, as well as routine scheduled and dedicated exercise. We discussed the potential weight loss benefit to approximately 60-70% of her excess body weight at 12-18 months post-op,as well as the possibility of insufficient weight [...] 03/17/25 Eval 03/02/25. Dietitian [x] Dashawn Workman Mold Cutting Machine Operator Cleared: 02/25/25 Cardiology [x] Jf Roe APRN [...] There is only 1 note from July thatis still good but now too large of [...] Laterality Date CHOLECYSTECTOMY 2005 HYSTERECTOMY 2007 partial documented in this [facility]07-28-2025 NoteDOS: 06/30/25 Procedure: RYGB PAT Date: 06/22/25 Patient [...] that post-op vitamins are listed in education manual.[facility]07-15-2025 Telephone encounter Note* Telephone Encounter - KENTON Chavez CNP - 05/25/2025 9:54 AM EDT Orders signed [facility] Work Phone: [phone] 278-832507-15-2025 Miscellaneous Notes* Telephone Encounter - KENTON Chavez CNP - 05/25/2025 9:54 AM EDT Orders signed * Telephone Encounter - Stephanie Vidal LPN - 05/25/2025 8:41 AM EDT Noted, thank you. * Telephone Encounter - Gaye Rodrigez RN - 05/25/2025 7:08 AM EDT Noted, thank you. * Telephone Encounter - Neha Anderson - 05/24/2025 3:37 PM EDT SURGERY SCHEDULED AND PATIENT NOTIFIED Surgeon: PAMELA Procedure: LRYGB W/ HH Surgery Date: 06/30/25 Surgery Time: 730AM Time Needed: 180MINS FPOV Date: 06/07/25 Time: 910AM 1WK POP Date: 07/05/25 Time: 840AM 1M POP Date: 08/02/25 Time: 1000AM Patient aware of required pre-operative class and instructed to sign up via website: YES * Telephone Encounter - Gaye Rodrigez RN - 05/24/2025 11:34 AM EDT Please schedule surgery for 06/30/25, order placed. * Telephone Encounter - Stephanie Vidal LPN - 05/24/2025 10:08 AM EDT Patient takes Anticoagulant: NO Name: Prescriber: Patient takes SGLT-2 Inhibitor: NO INVOKANA- canagliflozin JARDIANCE-empagliflozin STEGLATRO - ertugliflozin BRENZAVVY - bexagliflozin FARXIGA- dapagliflozin - If taking, is it used for Heart Failure: Patient assigned female at taking control that contains Estrogen: NO Difficult IV: NO Pain Management Provider: NO Support Person: ADULT GRANDDAUGHTER Date Restrictions for Surgery: NONE * Telephone Encounter - Rajani Acevedo - 05/24/2025 9:48 AM EDT Auth APPROVED: Yes Approved for: inpatient Insurance: [employer]ARE ID number: [id number] Authorization number: [id number] Valid dates: 06/22/2025 - 08/18/2025 Notes: INPATIENT AUTH APPROVAL FOR CPT 90410, 26802, 44783 / SCANNED TO MEDIA * Telephone Encounter - Stephanie Vidal LPN - 05/20/2025 10:22 AM EDT Noted, thank you. * Telephone Encounter - Rajani Acevedo - 05/20/2025 9:30 AM EDT Auth submitted: Yes Insurance: [employer] MEDICARE ID number: [id number] Notes: INPATIENT AUTH REQUESTED FOR CPT 35341, 99086, 77682 PENDING AUTH # [id number] * Telephone Encounter - Stephanie Vidal LPN - 05/11/2025 11:44 AM EDT Lap Diana En Y and Liver Bx w/HH In CCN * Telephone Encounter - Stephanie Vidal LPN - 05/11/2025 11:14 AM EDT Ready for submission. Thank you. Nicotine is scanned with chart review- I faxed to 260 today. documented in this encounterSLima Memorial HospitalJwgvfs52-32-4132 Telephone encounter Note* Telephone Encounter - Stephanie Vidal LPN - 05/25/2025 8:41 AM EDT Noted, thank you. [facility]yvwte95-[facility]-1751 Telephone encounter Note* Telephone Encounter - Gaye Rodrigez RN - 05/25/2025 7:08 AM EDT Noted, thank you. [facility] HospitalEcoylv76-14-6645 NoteSURGERY SCHEDULED AND PATIENT NOTIFIED Surgeon: RUSSELSGRAFAT Procedure: LRYGB W/ HH Surgery Date: 06/30/25 Surgery Time: 730AM Time Needed: 180MINS FPOV Date: 06/07/25 Time: 910AM 1WK POP Date: 07/05/25 Time: 840AM 1M POP Date: 08/02/25 Time: 1000AM Patient aware of required pre-operative class and instructed to sign up via website: [facility]07-14-2025 Telephone encounter Note* Telephone Encounter - Neha Anderson - 05/24/2025 3:37 PM EDT SURGERY SCHEDULED AND PATIENT NOTIFIED Surgeon: RUSSELSGAY Procedure: LRYGB W/ HH Surgery Date: 06/30/25 Surgery Time: 730AM Time Needed: 180MINS FPOV Date: 06/07/25 Time: 910AM 1WK POP Date: 07/05/25 Time: 840AM 1M POP Date: 08/02/25 Time: 1000AM Patient aware of required pre-operative class and instructed to sign up via website: YES [facility] HospitalGklsza36-06-5060 Telephone encounter Note* Telephone Encounter - Gaye Rodrigez RN - 05/24/2025 11:34 AM EDT Please schedule surgery for 06/30/25, order placed. [facility] HospitalNdzhay15-30-7608 Telephone encounter Note* Telephone Encounter - Stephanie Vidal LPN - 05/24/2025 10:08 AM EDT Patient takes Anticoagulant: NO Name: Prescriber: Patient takes SGLT-2 Inhibitor: NO INVOKANA- canagliflozin JARDIANCE-empagliflozin STEGLATRO - ertugliflozin BRENZAVVY - bexagliflozin FARXIGA- dapagliflozin - If taking, is it used for Heart Failure: Patient assigned female at taking control that contains Estrogen: NO Difficult IV: NO Pain Management Provider: NO Support Person: ADULT GRANDDAUGHTER Date Restrictions for Surgery: NONE [facility] HospitalDzshjq73-43-2584 Telephone encounter Note* Telephone Encounter - Rajani Acevedo - 05/24/2025 9:48 AM EDT Auth APPROVED: Yes Approved for: inpatient Insurance: [employer] MEDICARE ID number: [id number] Authorization number: [id number] Valid dates: 06/22/2025 - 08/18/2025 Notes: INPATIENT AUTH APPROVAL FOR CPT 97534, 38483, 80396 / SCANNED TO MEDIA [facility] HospitalHpoxyj85-47-9336 Telephone encounter Note* Telephone Encounter - Stephanie Vidal LPN - 05/20/2025 10:22 AM EDT Noted, thank you. [facility] HospitalVqtiev74-87-7056 Telephone encounter Note* Telephone Encounter - Rajani Acevedo - 05/20/2025 9:30 AM EDT Auth submitted: Yes Insurance: [employer] MEDICARE ID number: [id number] Notes: INPATIENT AUTH REQUESTED FOR CPT 11857, 90809, 32601 PENDING AUTH # [id number] [facility] HospitalSuhyau77-86-9251 Telephone encounter Note* Telephone Encounter - Stephanie Vidal LPN - 05/11/2025 11:44 AM EDT Lap Diana En Y and Liver Bx w/HH In CCN [facility] HospitalZvpqxs33-90-9160 Telephone encounter Note* Telephone Encounter - Stephanie Vidal LPN - 05/11/2025 11:18 AM EDT She is good to go now! ?? Trish was able to move her money, so she can be scheduled. Abdulaziz Valderrama Electronic Gaming Device Supervisor - Weight Management Ins BNA money was applied to incorrect account- Billing fixed it on 05/11/25 [facility] HospitalGtowso88-55-6068 Miscellaneous Notes* Telephone Encounter - Stephanie Vidal LPN - 05/11/2025 11:18 AM EDT She is good to go now! ?? Trish was able to move her money, so she can be scheduled. Abdulaziz Valderrama Electronic Gaming Device Supervisor - Weight Management Ins BNA money was applied to incorrect account- Billing fixed it on 05/11/25 * Addendum Note - KENTON Chavez CNP - 04/27/2025 9:39 AM EDT Addended by: BIBIANA RAMIREZ on: 04/27/2025 09:39 AM Modules accepted: Orders * Addendum Note - Stephanie Vidal LPN - 04/27/2025 8:22 AM EDTAddended by: STEPHANIE VIDAL on: 04/27/2025 08:22 AM Modules accepted: Orders * Telephone Encounter - Stephanie Vidal LPN - 04/27/2025 8:21 AM EDT [place] please * Telephone Encounter - Stephanie Vidal LPN - 03/17/2025 8:35 AM EDT Patient had informed that she was established at [facility]- clearance form faxed. They responded not a patient. Spoke with patient again. She cannot remember exactly where she went before it's been years. She will schedule with [facility]. Phone number provided. * Addendum Note - Marcelina Flores - 03/10/2025 9:28 AM EDTAddended by: MARCELINA FLORES on: 03/10/2025 09:28 AM Modules accepted: Orders * Addendum Note - Marcelina Flores - 03/10/2025 9:27 AM EDTAddended by: MARCELINA FLORES on: 03/10/2025 09:27 AM Modules accepted: Orders * Telephone Encounter - Svetlana Garcias - 02/22/2025 3:16 PM EDT Corrected. * Telephone Encounter - Stephanie Vidal LPN - 02/22/2025 3:02 PM EDT This is a 3 visit patient. Next visit marked 2 of 6- I do not know how to correct with new system. Thanks! * Addendum Note - Mattie Brady LPN - 02/03/2025 11:56 AM EDTAddended by: MATTIE BRADY on: 02/03/2025 11:56 AM Modules accepted: Orders * Telephone Encounter - Mattie Brady LPN - 01/28/2025 1:28 PM EDT Orders / pre op check list placed in folder for D/E 02/03/2025 W/ MGS. * Addendum Note - KENTON Jerez CNP - 01/28/2025 11:34 AM EDT Addended by: TRISH BHATIA on: 01/28/2025 11:34 AM Modules accepted: Orders * Telephone Encounter - KENTON Jerez CNP - 01/28/2025 11:34 AM EDT Orders signed. Called and left voicemail for patient to discuss decision of procedure she would like to have. * Addendum Note - Mattie Brady LPN - 01/28/2025 9:37 AM EDTAddended by: MATTIE BRADY on: 01/28/2025 09:37 AM Modules accepted: Orders * Telephone Encounter - Mattie Brady LPN - 01/28/2025 9:33 AM EDT EGD order sent to 260 senior power scheduler, labs pended, Pre op check list scanned to media. * Telephone Encounter - Mattie Brady LPN - 01/28/2025 9:31 AM EDT PLAN Encounter Diagnoses Name Primary? 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 female with Body mass index [...] related to anesthesia, conversion from laparoscopic to andopen procedure, the need for reoperative or endoscopic therapy, the potential for prolonged mechanical ventilation, and . All questions were fully answered to the patient's satisfaction and theywish to proceed with surgical intervention. Patient with [...] full chart rreview was performed by myself. * Telephone Encounter - Rajani GaytanMartha Acevedo - 01/25/2025 2:25 PM EDT Initial New [facility] surgical patient Navigation & Financial Counseling Discussion Patient Communication: In office SURGEON: [] JANELLE [] AD [x] MP [] TB [] LM PROCEDURE: [] LRYGB [] LSG [] MARYLIN-S [] MARYLIN [] UNDECIDED [] REV: SPECIFY: Confirmed pt wants to continue with surgical program/plan [] YES [] NO (complete program withdrawalnote/process) CO-MORBIDS: [] NONE [] DM []HTN [] [...] 1) Scheduled at new pt surgeon visit: Fire Regulator (RD) for a Nutrition Assessment (BNA) and Pre-operative Diet and Exercise (DE)appointment #1. [x] Patient reminded to arrive 15 [...] before and after surgery. documented in this encounterSLima Memorial HospitalDshdli22-41-4473 Telephone encounter Note* Telephone Encounter - Stephanie Vidal LPN - 05/11/2025 11:14 AM EDT Ready for submission. Thank you. Nicotine is scanned with chart review- I faxed to 260 today. [facility] HospitalZivnis03-17-7224 Note* Addendum Note - KENTON Chavez CNP - 04/27/2025 9:39 AM EDTAddended by: BIBIANA RAMIREZ on: 04/27/2025 09:39 AM Modules accepted: Orders [facility] HospitalHxsonf28-90-2560 Note* Addendum Note - KENTON Chavez CNP - 04/27/2025 9:39 AM EDTAddended by: BIBIANA RAMIREZ on: 04/27/2025 09:39 AM Modules accepted: Orders [facility] HospitalZvwufa39-67-5509 Note* Addendum Note - KENTON Chavez CNP - 04/27/2025 9:39 AM EDTAddended by: BIBIANA RAMIREZ on: 04/27/2025 09:39 AM Modules accepted: Orders [facility] [employer] Work Phone: 1([phone]) 367-448006-17-2025 Miscellaneous Notes* Addendum Note - KENTON Chavez CNP - 04/27/2025 9:39 AM EDTAddended by: BIBIANA RAMIREZ on: 04/27/2025 09:39 AM Modules accepted: Orders * Addendum Note - Stephanie Vidal LPN - 04/27/2025 8:22 AM EDTAddended by: STEPHANIE VIDAL on: 04/27/2025 08:22 AM Modules accepted: Orders * Telephone Encounter - Stephanie Vidal LPN - 04/27/2025 8:21 AM EDT [place] please * Telephone Encounter - Stephanie Vidal LPN - 03/17/2025 8:35 AM EDT Patient had informed that she was established at [facility]- clearance form faxed. They responded not a patient. Spoke with patient again. She cannot remember exactly where she went before it's been years. She will schedule with [facility]. Phone number provided. * Addendum Note - Marcelina Flores - 03/10/2025 9:28 AM EDTAddended by: MARCELINA FLORES on: 03/10/2025 09:28 AM Modules accepted: Orders * Addendum Note - Marcelina Flores - 03/10/2025 9:27 AM EDTAddended by: MARCELINA FLORES on: 03/10/2025 09:27 AM Modules accepted: Orders * Telephone Encounter - Sevtlana Garcias - 02/22/2025 3:16 PM EDT Corrected. * Telephone Encounter - Stephanie Vidal LPN - 02/22/2025 3:02 PM EDT This is a 3 visit patient. Next visit marked 2 of 6- I do not know how to correct with new system. Thanks! * Addendum Note - Mattie Brady LPN - 02/03/2025 11:56 AM EDTAddended by: MATTIE BRADY on: 02/03/2025 11:56 AM Modules accepted: Orders * Telephone Encounter - Mattie Brady LPN - 01/28/2025 1:28 PM EDT Orders / pre op check list placed in folder for D/E 02/03/2025 W/ MGS. * Addendum Note - KENTON Jerez CNP - 01/28/2025 11:34 AM EDT Addended by: TRISH BHATIA on: 01/28/2025 11:34 AM Modules accepted: Orders * Telephone Encounter - KENTON Jerez CNP - 01/28/2025 11:34 AM EDT Orders signed. Called and left voicemail for patient to discuss decision of procedure she would like to have. * Addendum Note - Mattie Brady LPN - 01/28/2025 9:37 AM EDTAddended by: MATTIE BRADY on: 01/28/2025 09:37 AM Modules accepted: Orders * Telephone Encounter - Mattie Brady LPN - 01/28/2025 9:33 AM EDT EGD order sent to 260 senior power scheduler, labs pended, Pre op check list scanned to media. * Telephone Encounter - Mattie Brady LPN - 01/28/2025 9:31 AM EDT PLAN Encounter Diagnoses Name Primary? Morbid obesity, unspecified obesity type (HCC) Gastroesophageal reflux disease without esophagitis Morbid obesity with BMI of 40.0-44.9, adult (HCC) Hypothyroidism, unspecified type I have recommended proceeding with the evaluation and work-up for the primary procedure as outlinedbelow: PATIENT SUMMARY Jaime GOODE 59 y.o. female [...] related to anesthesia, conversion from laparoscopic to andopen procedure, the need for reoperative or endoscopic therapy, the potential for prolonged mechanical ventilation, and . All questions were fully answered to the patient's satisfaction and theywish to proceed with surgical intervention. Patient with [...] full chart rreview was performed by myself. * Telephone Encounter - Rajani GaytanMartha Acevedo - 01/25/2025 2:25 PM EDT Initial New [facility] surgical patient Navigation & Financial Counseling Discussion Patient Communication: In office SURGEON: [] JANELLE [] AD [x] MP [] TB [] LM PROCEDURE: [] LRYGB [] LSG [] MARYLIN-S [] MARYLIN [] UNDECIDED [] REV: SPECIFY: Confirmed pt wants to continue with surgical program/plan [] YES [] NO (complete program withdrawalnote/process) CO-MORBIDS: [] NONE [] DM []HTN [] MICHELLE []GERD [] OTH: PRIVATE PAY: [] NO []YES DATE OF INITIAL BENEFITS VERIFICATION: TRANSFER FU: [] YES [] NO PRIMARY INSURANCE: Payor: [employer] MEDICARE ADVANTAGE / Plan: [employer] MEDICARE / Product Type: Medicare HMO / [...] 1) Scheduled at new pt surgeon visit: Fire Regulator (RD) for a Nutrition Assessment (BNA) and Pre-operative Diet and Exercise (DE)appointment #1. [x] Patient reminded to arrive 15 [...] before and after surgery. documented in this [facility]06-17-2025 Note* Addendum Note - Stephanie Vidal LPN - 04/27/2025 8:22 AM EDTAddended by: STEPHANIE VIDAL on: 04/27/2025 08:22 AM Modules accepted: Orders [facility] HospitalPaiknx22-33-4974 Note* Addendum Note - Stephanie Vidal LPN - 04/27/2025 8:22 AM EDTAddended by: STEPHANIE VIDAL on: 04/27/2025 08:22 AM Modules accepted: Orders [address]Koagpj09-02-8470 Note* Addendum Note - Stephanie Vidal LPN - 04/27/2025 8:22 AM EDTAddended by: STEPHANIE VIDAL on: 04/27/2025 08:22 AM Modules accepted: Orders [id number] Telephone encounter Note* Telephone Encounter - Stephanie Vidal LPN - 04/27/2025 8:21 AM EDT [place] please [facility] [id number] History of Present illness Narrative* Trish Donis, DIETICIAN - MECHANICAL INSULATOR - 04/08/2025 1:40 PM EDT [facility] PRE-OP MEDICAL MANAGEMENT PROGRESS [...] 249 lb 6.4 oz (113 kg) Comment: [facility] BMI 41.50 kg/m General: This patient is [...] <9> Pt has a good understanding of dietbut will try to increase physical activity. - [...] and additional scheduling orders documented in this [facility]05-29-2025 [facility] CENTER PRE-OP MEDICAL MANAGEMENT PROGRESS NOTE FOLLOW [...] encounter for next visit and additional scheduling [facility]05-29-2025 History of Present illness Narrative* Jf Roe, DIETICIAN - MECHANICAL INSULATOR - 04/08/2025 10:30 AM EDT Images from the original note were not included. [facility] CARDIOLOGY [address] [facility] [address] Dept: [phone] Dept Visit Type: New NAME: Jaime Oenill : 1965 Reason for Visit: No chief [...] of future cardiovascular events. [facility] [place] remain available to assist in the patient's perioperative care as needed. Follow-up as needed Subjective HPI Jaime Oneill is an 59 y.o. female who presents for cardiac evaluation prior to planned bariatric surgery. She has a history of hypothyroidism and acid reflux. She denies a history of coronary artery disease, myocardial infarction, heart failure, arrhythmias,valvular disease, thromboembolism, kidney or liver diease, or [...] , Rfl: cholecalciferol (Vitamin D-3) 250 MCG (50263 UT) tablet, Take 10,000 Units by mouth daily. (Patientnot taking: Reported on 03/25/2025), Disp: , Rfl: citalopram (CeleXA) 20 MG tablet, Take 20 mg by mouth daily., Disp: , Rfl: levothyroxine (Synthroid, Levoxyl) 125 MCG tablet, Take 125 mcg by mouth daily., Disp: , Rfl: Multiple Vitamins-Minerals (CENTRUM SILVER ULTRA WOMENS PO), Take 1 tablet by mouth daily., Disp: ,Rfl: pantoprazole (ProtoNix) 40 MG EC tablet, Take 40 mg by mouth daily., Disp: , Rfl: UNABLE TO FIND, Take 4 tablets by mouth daily. Med Name: Focus Factor (Patient not taking: Reportedon 03/10/2025), Disp: , Rfl: [3] Past Medical [...] High Blood Pressure Brother documented in this [facility]05-15-2025 NotePatient: Jaime Oneill Procedure Summary Date: 03/25/25 Room / Location: [facility] END[facility] SEC 3 / ARCH Gastroenterology Anesthesia Start: 1417 Anesthesia Stop: 1436 Procedure: ESOPHAGOGASTRODUODENOSCOPY, WITH BIOPSY Diagnosis: Gastro-esophageal reflux [...] discharged once all PACU criteria has been met.[facility]05-15-2025 NotePatient: Jaime Oneill Procedure Summary Date: 03/25/25 Room / Location: [facility] ENDO SEC 3 / [...] Allowed opportunity for questions and acknowledgement of understanding.[facility]05-15-2025 History and physical note* Jordon Santiago, DO - 03/25/2025 2:23 PM EDT General Surgery History and Physical HPI: Jaime [...] Blood Pressure Brother [4] No Known Allergies [employer] Work Phone: [phone] NoteGeneral Surgery History and Physical HPI: Jaime Oneill [...] High Blood Pressure Brother [4] No Known All[facility]ies[facility] History and physical note* Jordon Santiago DO - 03/25/2025 2:23 PM EDT General Surgery History and Physical HPI: Jaime [...] [4] No Known Allergies documented in this [facility]05-15-2025 NotePatient: Jaime Oneill Procedure Information Date/Time: 03/25/25 1345 [...] Sister Heart disease Brother High Blood Pressure [facility] [id number] [facility] Patient Name: Jaime Oneill Procedure Date: 03/25/2025 2:02 PM Gender: Female Date of : 1965 Age: 59 Admit Type: Outpatient Note Status: Finalized Endoscopist: Jordon Santiago DO, [id number] Procedure: Upper GI endoscopy Indications: Gastro-esophageal reflux [...] immediate complications. Procedure Code(s): --- Professional --- 42422, Esophagogastroduodenoscopy, flexible, transoral; with biopsy, single or multiple --- Technical --- 35842, Esophagogastroduodenoscopy, flexible, transoral; with biopsy, single or multiple Diagnosis Code(s): --- Professional --- K29.70, Gastritis, unspecified, without bleeding K44.9, Diaphragmatic hernia without obstruction or gangrene K21.9, Gastro-esophageal reflux disease without esophagitis --- Technical --- K29.70, Gastritis, unspecified, without bleeding K44.9, Diaphragmatic hernia without obstruction or gangrene K21.9, Gastro-esophageal reflux disease without esophagitis CPT copyright 2021 [employer]. All rights reserved. The codes documented in this report are preliminary and upon journeyman welder review may be revised to meet current compliance requirements. Attending Participation: I personally performed the entire procedure. Jordon Santiago DO 03/25/2025 2:33:42 PM This report has been signed electronically. Number of Addenda: 0 Note Initiated On: 03/25/2025 2:02 [facility] [id number] Procedure note* Op Note - Jordon Santiago DO - 03/25/2025 2:02 PM EDT Endoscopy Center- [facility] Patient Name: Jaime Oneill Procedure Date: 03/25/2025 2:02 PM Gender: Female Date of : 1965 Age: 59 Admit Type: Outpatient Note Status: Finalized Endoscopist: Jordon Santiago DO, [id number] Procedure: Upper GI endoscopy Indications: Gastro-esophageal reflux [...] immediate complications. Procedure Code(s): --- Professional --- 06863, Esophagogastroduodenoscopy, flexible, transoral; with biopsy, single or multiple --- Technical --- 55722, Esophagogastroduodenoscopy, flexible, transoral; with biopsy, single or multiple Diagnosis Code(s): --- Professional --- K29.70, Gastritis, unspecified, without bleeding K44.9, Diaphragmatic hernia without obstruction or gangrene K21.9, Gastro-esophageal reflux disease without esophagitis --- Technical --- K29.70, Gastritis, unspecified, without bleeding K44.9, Diaphragmatic hernia without obstruction or gangrene K21.9, Gastro-esophageal reflux disease without esophagitis CPT copyright 2021 [employer]. All rights reserved. The codes documented in this report are preliminary and upon journeyman welder review may be revised to meet current compliance requirements. Attending Participation: I personally performed the entire procedure. Jordon Santiago DO 03/25/2025 2:33:42 PM This report has been signed electronically. Number of Addenda: 0 Note Initiated On: 03/25/2025 2:02 PM [facility]05-15-2025 Miscellaneous Notes* Op Note - Jodron Santiago DO - 03/25/2025 2:02 PM EDT Endoscopy Center- [facility] Patient Name: Jaime Oneill Procedure Date: 03/25/2025 2:02 PM Gender: Female Date of : 1965 Age: 59 Admit Type: Outpatient Note Status: Finalized Endoscopist: Jordon Santiago DO, [id number] Procedure: Upper GI endoscopy Indications: Gastro-esophageal reflux [...] immediate complications. Procedure Code(s): --- Professional --- 68561, Esophagogastroduodenoscopy, flexible, transoral; with biopsy, single or multiple --- Technical --- 98820, Esophagogastroduodenoscopy, flexible, transoral; with biopsy, single or multiple Diagnosis Code(s): --- Professional --- K29.70, Gastritis, unspecified, without bleeding K44.9, Diaphragmatic hernia without obstruction or gangrene K21.9, Gastro-esophageal reflux disease without esophagitis --- Technical --- K29.70, Gastritis, unspecified, without bleeding K44.9, Diaphragmatic hernia without obstruction or gangrene K21.9, Gastro-esophageal reflux disease without esophagitis CPT copyright 2021 [employer]. All rights reserved. The codes documented in this report are preliminary and upon journeyman welder review may be revised to meet current compliance requirements. Attending Participation: I personally performed the entire procedure. Jordon Santiago DO 03/25/2025 2:33:42 PM This report has been signed electronically. Number of Addenda: 0 Note Initiated On: 03/25/2025 2:02 PM documented in this encounterSLima Memorial [id number] Telephone encounter Note* Telephone Encounter - Stephanie Vidal LPN - 03/17/2025 8:35 AM EDT Patient had informed that she was established at [facility]- clearance form faxed. They responded not a patient. Spoke with patient again. She cannot remember exactly where she went before it's been years. She will schedule with [employer]. Phone number provided. [facility] HospitalXfwwnm83-39-2844 Miscellaneous Notes* Telephone Encounter - Stephanie Vidal LPN - 03/17/2025 8:35 AM EDT Patient had informed that she was established at [facility]- clearance form faxed. They responded not a patient. Spoke with patient again. She cannot remember exactly where she went before it's been years. She will schedule with [employer]. Phone number provided. * Addendum Note - Marcelina Flores - 03/10/2025 9:28 AM EDTAddended by: MARCELINA FLORES on: 03/10/2025 09:28 AM Modules accepted: Orders * Addendum Note - Marcelina Flores - 03/10/2025 9:27 AM EDTAddended by: MARCELINA FLORES on: 03/10/2025 09:27 AM Modules accepted: Orders * Telephone Encounter - Svtelana Garcias - 02/22/2025 3:16 PM EDT Corrected. * Telephone Encounter - Stephanie Vidal LPN - 02/22/2025 3:02 PM EDT This is a 3 visit patient. Next visit marked 2 of 6- I do not know how to correct with new system. Thanks! * Addendum Note - Mattie Brady LPN - 02/03/2025 11:56 AM EDTAddended by: MATTIE BRADY on: 02/03/2025 11:56 AM Modules accepted: Orders * Telephone Encounter - Mattie Brady LPN - 01/28/2025 1:28 PM EDT Orders / pre op check list placed in folder for D/E 02/03/2025 W/ MGS. * Addendum Note - Trish Bhatia APRN - MECHANICAL INSULATOR - 01/28/2025 11:34 AM EDT Addended by: TRISH BHATIA on: 01/28/2025 11:34 AM Modules accepted: Orders * Telephone Encounter - KENTON Jerez CNP - 01/28/2025 11:34 AM EDT Orders signed. Called and left voicemail for patient to discuss decision of procedure she would like to have. * Addendum Note - Mattie Brady LPN - 01/28/2025 9:37 AM EDTAddended by: MATTIE BRADY on: 01/28/2025 09:37 AM Modules accepted: Orders * Telephone Encounter - Mattie Brady LPN - 01/28/2025 9:33 AM EDT EGD order sent to 260 senior power scheduler, labs pended, Pre op check list scanned to [employer]. * Telephone Encounter - Mattie Brady LPN - 01/28/2025 9:31 AM EDT PLAN Encounter Diagnoses Name Primary? Morbid obesity, unspecified obesity type (HCC) Gastroesophageal reflux disease without esophagitis Morbid obesity with BMI of 40.0-44.9, adult (HCC) Hypothyroidism, unspecified type I have recommended proceeding with the evaluation and work-up for the primary procedure as outlinedbelow: PATIENT SUMMARY Jaime GOODE 59 y.o. female [...] CONSULTATIONS CLEARANCE / MANAGEMENT Psychology [x] Dr. Fnotanezitian [x] Cardiology [x] Pulmonary [x] Others [] [...] related to anesthesia, conversion from laparoscopic to andopen procedure, the need for reoperative or endoscopic therapy, the potential for prolonged mechanical ventilation, and . All questions were fully answered to the patient's satisfaction and theywish to proceed with surgical intervention. Patient with [...] full chart rreview was performed by myself. * Telephone Encounter - Rajani Acevedo - 01/25/2025 2:25 PM EDT Initial New [facility] surgical patient Navigation & Financial Counseling Discussion Patient Communication: In office SURGEON: [] JANELLE [] AD [x] MP [] TB [] LM PROCEDURE: [] LRYGB [] LSG [] MARYLIN-S [] MARYLIN [] UNDECIDED [] REV: SPECIFY: Confirmed pt wants to continue with surgical program/plan [] YES [] NO (complete program withdrawalnote/process) CO-MORBIDS: [] NONE [] DM []HTN [] [...] 1) Scheduled at new pt surgeon visit: Fire Regulator (RD) for a Nutrition Assessment (BNA) and Pre-operative Diet and Exercise (DE)appointment #1. [x] Patient reminded to arrive 15 [...] before and after surgery. documented in this [facility]05-05-2025 Telephone encounter Note* Telephone Encounter - Stephanie Vidal LPN - 03/15/2025 11:19 AM EDT [facility] HospitalOokhox07-10-0048 Miscellaneous Notes* Telephone Encounter - Stephanie Vidla LPN - 03/15/2025 11:19 AM EDT Patient call back- she goes to [facility]- clearance request faxed * Telephone Encounter - Stephanie Vidal LPN - 03/15/2025 9:09 AM EDT Spoke to patient. She somehow thought she had to have UGI BEFORE the EGD and that was what was worrying her. I assured her it was fine to schedule the UGI on April 19. 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 * Telephone Encounter - Stephanie Vidal LPN - 03/15/2025 8:58 AM EDT Left another VM for patient requesting ret call. * Telephone Encounter - Stephanie Vidal LPN - 03/11/2025 4:23 PM EDT Left VM to call me at direct line. Unsure what the confusion/question is. * Telephone Encounter - Trish Odonnell RN - 03/11/2025 1:10 PM EDT MP Pt last seen yesterday w MGS for D&E 2/3. Pt called and left message that the soonest she can get UGI done at [facility] is 04/19/25. MGS-does she need to try another location or just wait and have a 4th D&E in April? documented in this encounterSLima Memorial HospitalQyguad90-95-0879 Telephone encounter Note* Telephone Encounter - Stephanie Vidal LPN - 03/15/2025 9:09 AM EDT Spoke to patient. She somehow thought she had to have UGI BEFORE the EGD and that was what was worrying her. I assured her it was fine to schedule the UGI on April 19. 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 [facility] HospitalFaxrjb53-41-9106 Telephone encounter Note* Telephone Encounter - Stephanie Vidal LPN - 03/15/2025 8:58 AM EDT Left another VM for patient requesting ret call. [facility] HospitalZvthdc08-54-6186 Telephone encounter Note* Telephone Encounter - Stephanie Vidal LPN - 03/11/2025 4:23 PM EDT Left VM to call me at direct line. Unsure what the confusion/question is. [facility] HospitalOgsywg41-27-6225 Miscellaneous Notes* Telephone Encounter - Stephanie Vidal LPN - 03/11/2025 4:23 PM EDT Left VM to call me at direct line. Unsure what the confusion/question is. * Telephone Encounter - Trish Odonnell RN - 03/11/2025 1:10 PM EDT MP Pt last seen yesterday w MGS for D&E 2/3. Pt called and left message that the soonest she can get UGI done at [facility] is 04/19/25. MGS-does she need to try another location or just wait and have a 4th D&E in April? documented in this encounterSLima Memorial HospitalVbkjjn64-44-0463 Telephone encounter Note* Telephone Encounter - Trish Odonnell RN - 03/11/2025 1:10 PM EDT MP Pt last seen yesterday w MGS for D&E 2/3. Pt called and left message that the soonest she can get UGI done at [facility] is 04/19/25. MGS-does she need to try another location or just wait and have a 4th D&E in April? [facility] HospitalDyqwvr80-41-0995 Telephone encounter Note* Telephone Encounter - KENTON Jerez CNP - 03/11/2025 12:42 PM EDT Order for recheck signed. [facility] Work Phone: [phone] 689-576505-01-2025 Miscellaneous Notes* Telephone Encounter - KENTON Jerez CNP - 03/11/2025 12:42 PM EDT Order for recheck signed. * Telephone Encounter - Shae Klein RD - 03/11/2025 8:49 AM EDT Pre-op patient Mycharted pt regarding high vitamin D (77). Rec'd pt stop taking 10,000 IU vitamin D daily for now and will recheck lab in three months. * Telephone Encounter - Shae Klein RD - 03/11/2025 8:32 AM EDT ----- Message from KENTON José CNP sent at 03/10/2025 12:58 PM EDT ----- Vit D is elevated - thanks documented in this encounterSLima Memorial HospitalHwskcg59-40-0233 Telephone encounter Note* Telephone Encounter - Shae Klein RD - 03/11/2025 8:49 AM EDT Pre-op patient Mycharted pt regarding high vitamin D (77). Rec'd pt stop taking 10,000 IU vitamin D daily for now and will recheck lab in three months. [facility] HospitalTillbj66-95-1819 Telephone encounter Note* Telephone Encounter - Shae Klein RD - 03/11/2025 8:32 AM EDT ----- Message from KENTON José CNP sent at 03/10/2025 12:58 PM EDT ----- Vit D is elevated - thanks [facility] HospitalKfauqd52-48-7308 Note* Addendum Note - Marcelina Flores - 03/10/2025 9:28 AM EDTAddended by: MARCELINA FLORES on: 03/10/2025 09:28 AM Modules accepted: Orders [facility] HospitalXmcilc60-68-3187 Note* Addendum Note - Marcelina Flores - 03/10/2025 9:28 AM EDTAddended by: MARCELINA FLORES on: 03/10/2025 09:28 AM Modules accepted: Orders [facility] HospitalIvatpk92-39-6515 Note* Addendum Note - Marcelina Flores - 03/10/2025 9:28 AM EDTAddended by: MARCELINA FLORES on: 03/10/2025 09:28 AM Modules accepted: Orders [place] [id number] Note* Addendum Note - Marcelina Flores - 03/10/2025 9:28 AM EDTAddended by: MARCELINA FLORES on: 03/10/2025 09:28 AM Modules accepted: Orders [facility] HospitalItggdi39-67-2800 Note* Addendum Note - Marcelina Flores - 03/10/2025 9:28 AM EDTAddended by: MARCELINA FLORES on: 03/10/2025 09:28 AM Modules accepted: Orders [facility] HospitalZjesqz73-14-8787 Note* Addendum Note - Marcelina Flores - 03/10/2025 9:28 AM EDTAddended by: MARCELINA FLORES on: 03/10/2025 09:28 AM Modules accepted: Orders [place] [id number] Miscellaneous Notes* Addendum Note - Marcelina Flores - 03/10/2025 9:28 AM EDTAddended by: MARCELINA FLORES on: 03/10/2025 09:28 AM Modules accepted: Orders * Addendum Note - Marcelina Flores - 03/10/2025 9:27 AM EDTAddended by: MARCELINA FLORES on: 03/10/2025 09:27 AM Modules accepted: Orders * Telephone Encounter - Svetlana Garcias - 02/22/2025 3:16 PM EDT Corrected. * Telephone Encounter - Stephanie Vidal LPN - 02/22/2025 3:02 PM EDT This is a 3 visit patient. Next visit marked 2 of 6- I do not know how to correct with new system. Thanks! * Addendum Note - Mattie Brady LPN - 02/03/2025 11:56 AM EDTAddended by: MATTIE BRADY on: 02/03/2025 11:56 AM Modules accepted: Orders * Telephone Encounter - Mattie Brady LPN - 01/28/2025 1:28 PM EDT Orders / pre op check list placed in folder for D/E 02/03/2025 W/ MGS. * Addendum Note - KENTON Jerez CNP - 01/28/2025 11:34 AM EDT Addended by: TRISH BHATIA on: 01/28/2025 11:34 AM Modules accepted: Orders * Telephone Encounter - KENTON Jerez CNP - 01/28/2025 11:34 AM EDT Orders signed. Called and left voicemail for patient to discuss decision of procedure she would like to have. * Addendum Note - Mattie Brady LPN - 01/28/2025 9:37 AM EDTAddended by: MATTIE BRADY on: 01/28/2025 09:37 AM Modules accepted: Orders * Telephone Encounter - Mattie Brady LPN - 01/28/2025 9:33 AM EDT EGD order sent to 260 senior power scheduler, labs pended, Pre op check list scanned to media. * Telephone Encounter - Mattie Brady LPN - 01/28/2025 9:31 AM EDT PLAN Encounter Diagnoses Name Primary? Morbid obesity, unspecified obesity type (HCC) Gastroesophageal reflux disease without esophagitis Morbid obesity with BMI of 40.0-44.9, adult (HCC) Hypothyroidism, unspecified type I have recommended proceeding with the evaluation and work-up for the primary procedure as outlinedbelow: PATIENT SUMMARY Jaime GOODE 59 y.o. female [...] related to anesthesia, conversion from laparoscopic to andopen procedure, the need for reoperative or endoscopic therapy, the potential for prolonged mechanical ventilation, and . All questions were fully answered to the patient's satisfaction and theywish to proceed with surgical intervention. Patient with [...] full chart rreview was performed by myself. * Telephone Encounter - Rajani Acevedo - 01/25/2025 2:25 PM EDT Initial New [facility] surgical patient Navigation & Financial Counseling Discussion Patient Communication: In office SURGEON: [] JANELLE [] SENG [x] MP [] TB [] LM PROCEDURE: [] LRYGB [] LSG [] MARYLIN-S [] MARYLIN [] UNDECIDED [] REV: SPECIFY: Confirmed pt wants to continue with surgical program/plan [] YES [] NO (complete program withdrawalnote/process) CO-MORBIDS: [] NONE [] DM []HTN [] [...] 1) Scheduled at new pt surgeon visit: Fire Regulator (RD) for a Nutrition Assessment (BNA) and Pre-operative Diet and Exercise (DE)appointment #1. [x] Patient reminded to arrive 15 [...] before and after surgery. documented in this encounterSLima Memorial HospitalKkdxbl70-12-3278 Note* Addendum Note - Marcelina Flores - 03/10/2025 9:27 AM EDTAddended by: MARCELINA FLORES on: 03/10/2025 09:27 AM Modules accepted: Orders [facility] [id number] Note* Addendum Note - Marcelina Flores - 03/10/2025 9:27 AM EDTAddended by: MARCELINA FLORES on: 03/10/2025 09:27 AM Modules accepted: Orders [facility] HospitalXfwryj46-04-7317 Note* Addendum Note - Marcelina Flores - 03/10/2025 9:27 AM EDTAddended by: MARCELINA FLORES on: 03/10/2025 09:27 AM Modules accepted: Orders [facility] HospitalQvdmko18-39-8370 Note* Addendum Note - Marcelina Flores - 03/10/2025 9:27 AM EDTAddended by: MARCELINA FLORES on: 03/10/2025 09:27 AM Modules accepted: Orders [place] [id number] Note* Addendum Note - Marcelina Flores - 03/10/2025 9:27 AM EDTAddended by: MARCELINA FLORES on: 03/10/2025 09:27 AM Modules accepted: Orders [facility] HospitalGmdefb60-93-4690 Note* Addendum Note - Marcelina Flores - 03/10/2025 9:27 AM EDTAddended by: MARCELINA FLORES on: 03/10/2025 09:27 AM Modules accepted: Orders [facility] HospitalElbuhd38-12-1911 History of Present illness Narrative* Trish Donis, KENTON - MECHANICAL INSULATOR - 03/10/2025 9:00 AM EDT [facility] PRE-OP MEDICAL MANAGEMENT PROGRESS [...] 5 (1.651 m) Comment: BCC Wt 247 lb6.4 oz (112 kg) BMI 41.17 kg/m General: [...] with BMI of 40.0-44.9, adult ([facility]) Plan: Diagnosis Managing: GERD: stable. continue medical management, Diet & Exercise, and plan for metabolic weight loss surgery. and Obesity/WT: stable, - <9> Pt has a good understanding of dietbut will try to increase physical activity. - F/U in one month. EGD 03/25/25---- this will tell what procedure she will have Visit 2 /3 Last month's Goals: Protein will be added to all carbs HAS BEEN DOING Will incorporate vegan recipes HAS NOT DONE Will incorporate protein smoothie after work out HAS BEEN DOING Was with a business trainer - stopped and now doing on [...] and additional scheduling orders documented in this [facility]04-30-2025 [facility] CENTER PRE-OP MEDICAL MANAGEMENT PROGRESS NOTE FOLLOW [...] with BMI of 40.0-44.9, adult ([facility]) Plan: Diagnosis Managing: GERD: stable. 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 Was with a business trainer - stopped and now doing on her own [] Patient advised to maintain a food/exercise/behavior diary until next physician visit. Pt to bring the completed diary to next visit [] Final D/E Visit Discussed surgical checklist with patient. Answered patient's questions. Physician Diet Recommendations given to patient See Follow up Section of today's encounter for next visit and additional scheduling [facility]04-22-2025 History of Present illness Narrative* Bibiana Espinoza, PhD - 03/02/2025 11:00 AM EDT [facility] PSYCHOLOGICAL TESTING VIA COMPUTER [...] clinical interview. Bibiana Espinoza, PhD Clinical Psychologist Weight Management [place] documented in this [facility]04-17-2025 History of Present illness Narrative* Dashawn Workman - 02/25/2025 9:00 AM EDT [facility] NUTRITION ASSESSMENT / DIET & EXERCISE [...] Amount regained Most successful Lifestyle Changes Now [facility] CURRENT MEAL PLANNING Self Spouse Significant Other Child Not Planned or Varies Other Meals planned by x x Food shopping done by x x Meals cooked by x x CURRENT EATING BEHAVIORS: Pt is eating 5-6x daily. We discussed the importance of eating every 2-3 hours and including a leansource of protein at each meal/snack. Adequate protein intake noted. Reviewed high protein options,many of which the pt is already consuming [...] and concerns with drinking them after surgery. Recommendedbeverages that are not a concern to drink [...] 02/26/2025 7:40 AM EDT documented in this [facility]04-17-2025 NotePatient: Jaime Oneill Procedure Information Date/Time: 02/25/25 1345 Procedure: ESOPHAGOGASTRODUODENOSCOPY, WITH BIOPSY - 20 MINS Location: [address] ENDO SEC 3 / [facility] Providers: [...] any previous visit. Equipment Requests: [facility] Telephone encounter Note* Telephone Encounter - Svetlana Garcias - 02/22/2025 3:16 PM EDT Corrected. [facility]Xxwpph44-35-3164 Miscellaneous Notes* Telephone Encounter - Svetlana Garcias - 02/22/2025 3:16 PM EDT Corrected. * Telephone Encounter - Stephanie Vidal LPN - 02/22/2025 3:02 PM EDT This is a 3 visit patient. Next visit marked 2 of 6- I do not know how to correct with new system. Thanks! * Addendum Note - Mattie Brady LPN - 02/03/2025 11:56 AM EDTAddended by: MATTIE BRADY on: 02/03/2025 11:56 AM Modules accepted: Orders * Telephone Encounter - Mattie Brady LPN - 01/28/2025 1:28 PM EDT Orders / pre op check list placed in folder for D/E 02/03/2025 W/ MGS. * Addendum Note - Trish Bhatia APRN - MECHANICAL INSULATOR - 01/28/2025 11:34 AM EDT Addended by: TRISH BHATIA on: 01/28/2025 11:34 AM Modules accepted: Orders * Telephone Encounter - KENTON Jerez CNP - 01/28/2025 11:34 AM EDT Orders signed. Called and left voicemail for patient to discuss decision of procedure she would like to have. * Addendum Note - Mattie Brady LPN - 01/28/2025 9:37 AM EDTAddended by: MATTIE BRADY on: 01/28/2025 09:37 AM Modules accepted: Orders * Telephone Encounter - Mattie Brady LPN - 01/28/2025 9:33 AM EDT EGD order sent to 260 senior power scheduler, labs pended, Pre op check list scanned to [employer]. * Telephone Encounter - Mattie Brady LPN - 01/28/2025 9:31 AM EDT PLAN Encounter Diagnoses Name Primary? Morbid obesity, unspecified obesity type (HCC) Gastroesophageal reflux disease without esophagitis Morbid obesity with BMI of 40.0-44.9, adult (HCC) Hypothyroidism, unspecified type I have recommended proceeding with the evaluation and work-up for the primary procedure as outlinedbelow: PATIENT SUMMARY Jaime GOODE 59 y.o. female [...] related to anesthesia, conversion from laparoscopic to andopen procedure, the need for reoperative or endoscopic therapy, the potential for prolonged mechanical ventilation, and . All questions were fully answered to the patient's satisfaction and theywish to proceed with surgical intervention. Patient with [...] full chart rreview was performed by myself. * Telephone Encounter - Rajani Acevedo - 01/25/2025 2:25 PM EDT Initial New [facility] surgical patient Navigation & Financial Counseling Discussion Patient Communication: In office SURGEON: [] JANELLE [] AD [x] MP [] TB [] LM PROCEDURE: [] LRYGB [] LSG [] MARYLIN-S [] MARYLIN [] UNDECIDED [] REV: SPECIFY: Confirmed pt wants to continue with surgical program/plan [] YES [] NO (complete program withdrawalnote/process) CO-MORBIDS: [] NONE [] DM []HTN [] [...] 1) Scheduled at new pt surgeon visit: Fire Regulator (RD) for a Nutrition Assessment (BNA) and Pre-operative Diet and Exercise (DE)appointment #1. [x] Patient reminded to arrive 15 [...] before and after surgery. documented in this [facility]04-14-2025 Telephone encounter Note* Telephone Encounter - Stephanie Vidal LPN - 02/22/2025 3:02 PM EDT This is a 3 visit patient. Next visit marked 2 of 6- I do not know how to correct with new system. Thanks! [facility] HospitalSmjhfk58-66-9025 History of Present illness Narrative* Cricket Jones PA-C - 02/19/2025 10:40 AM EDT Visit type: New patient History of Present Illness: HPI History of Present Illness: Jaime Oneill is a 59 y.o. female patient being seen for pre-operativepulmonary clearance. She was recently seen by Dr. Santiago and plans to undergo bariatric surgery in the near future. She feels well today. Hx of underlying lung disease: none Respiratory symptoms: Denies any symptoms such as SOB, coughing, wheezing, chest tightness, or CP. 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 Known history of sleep apnea: no [place] Sleepiness Scale: 3 Sleep apnea symptoms: Snoring - yes Apneas witnessed- no AM headaches- yes Daytime somnolence- no Fatigue - yes STOPBang Questionnaire: SNORING: Do you snore loudly (loud enough to be heard through closed doors or your bed- partner elbows you for snoring at night)? yes [...] Congratulated her on remaining smoke free since 2018.Previously on Chantix. Encouraged her to remain smoke free. Given patient's pack year history and current age, pt qualifies for LDCT for lung cancer screening. Pt agrees. Will order. - CT lung screening low dose Follow-up: Patient to follow up PRN or if symptoms worsen. documented in this [facility]04-11-2025 Instructions* Patient Instructions* Geri Phillips MA - 02/19/2025 10:40 AM EDT YOUR APPOINTMENT TODAY WAS WITH THE [facility] LUNG NODULE CLINIC, COPD CLINIC, PULMONARY AND SLEEP MEDICINE OFFICE. PLEASE CALL OUR OFFICE AT [phone] IF YOU HAVE NOT RECEIVED YOUR TEST [...] to make improvements. COVID-19 VACCINATION INFORMATION: PH. [phone] HEALTH.ORG/CORONAVIRUS/VACCINE [facility] Central Scheduling [phone] [facility] Sleep Scheduling [phone] documented in this encounterSLima Memorial HospitalKmpwmd33-04-7393 Note* Addendum Note - Mattie Brady LPN - 02/03/2025 11:56 AM EDTAddended by: MATTIE BRADY on: 02/03/2025 11:56 AM Modules accepted: Orders [facility] HospitalGnskkh56-92-8183 Note* Addendum Note - Mattie Brady LPN - 02/03/2025 11:56 AM EDTAddended by: MATTIE BRADY on: 02/03/2025 11:56 AM Modules accepted: Orders [facility] HospitalEabouu59-71-1450 Note* Addendum Note - Mattie Brady LPN - 02/03/2025 11:56 AM EDTAddended by: MATTIE BRADY on: 02/03/2025 11:56 AM Modules accepted: Orders [place] [address]Fteita61-19-7617 Note* Addendum Note - Mattie Brady LPN - 02/03/2025 11:56 AM EDTAddended by: MATTIE BRADY on: 02/03/2025 11:56 AM Modules accepted: Orders [address]Vtecfd99-43-8411 Note* Addendum Note - Mattie Brady LPN - 02/03/2025 11:56 AM EDTAddended by: MATTIE BRADY on: 02/03/2025 11:56 AM Modules accepted: Orders [address]Iktitz40-19-0057 Note* Addendum Note - Mattie Brady LPN - 02/03/2025 11:56 AM EDTAddended by: MATTIE BRADY on: 02/03/2025 11:56 AM Modules accepted: Orders [address]Yfexxe08-88-6237 Note* Addendum Note - Mattie Brady LPN - 02/03/2025 11:56 AM EDTAddended by: MATTIE BRADY on: 02/03/2025 11:56 AM Modules accepted: Orders [address]Jkfilq36-99-3815 Note* Addendum Note - Mattie Brady LPN - 02/03/2025 11:56 AM EDTAddended by: MATTIE BARDY on: 02/03/2025 11:56 AM Modules accepted: Orders [address]Xewnkj87-42-9801 Note* Addendum Note - Mattie Brady LPN - 02/03/2025 11:56 AM EDTAddended by: MATTIE BRADY on: 02/03/2025 11:56 AM Modules accepted: Orders [address]Hkvbrm50-26-0090 Miscellaneous Notes* Addendum Note - Mattie Brady LPN - 02/03/2025 11:56 AM EDTAddended by: MATTIE BRADY on: 02/03/2025 11:56 AM Modules accepted: Orders * Telephone Encounter - Mattie Brady LPN - 01/28/2025 1:28 PM EDT Orders / pre op check list placed in folder for D/E 02/03/2025 W/ MGS. * Addendum Note - KENTON Jerez CNP - 01/28/2025 11:34 AM EDT Addended by: TRISH BHATIA on: 01/28/2025 11:34 AM Modules accepted: Orders * Telephone Encounter - KENTON Jerez CNP - 01/28/2025 11:34 AM EDT Orders signed. Called and left voicemail for patient to discuss decision of procedure she would like to have. * Addendum Note - Mattie Brady LPN - 01/28/2025 9:37 AM EDTAddended by: MATTIE BRADY on: 01/28/2025 09:37 AM Modules accepted: Orders * Telephone Encounter - Mattie Brady LPN - 01/28/2025 9:33 AM EDT EGD order sent to 260 senior power scheduler, labs pended, Pre op check list scanned to [employer]. * Telephone Encounter - Mattie Brady LPN - 01/28/2025 9:31 AM EDT PLAN Encounter Diagnoses Name Primary? Morbid obesity, unspecified obesity type (HCC) Gastroesophageal reflux disease without esophagitis Morbid obesity with BMI of 40.0-44.9, adult (HCC) Hypothyroidism, unspecified type I have recommended proceeding with the evaluation and work-up for the primary procedure as outlinedbelow: PATIENT SUMMARY Jaime GOODE 59 y.o. female [...] related to anesthesia, conversion from laparoscopic to andopen procedure, the need for reoperative or endoscopic therapy, the potential for prolonged mechanical ventilation, and . All questions were fully answered to the patient's satisfaction and theywish to proceed with surgical intervention. Patient with [...] full chart rreview was performed by myself. * Telephone Encounter - Rajani Acevedo - 01/25/2025 2:25 PM EDT Initial New [facility] surgical patient Navigation & Financial Counseling Discussion Patient Communication: In office SURGEON: [] JANELLE [] AD [x] MP [] TB [] LM PROCEDURE: [] LRYGB [] LSG [] MARYLIN-S [] MARYLIN [] UNDECIDED [] REV: SPECIFY: Confirmed pt wants to continue with surgical program/plan [] YES [] NO (complete program withdrawalnote/process) CO-MORBIDS: [] NONE [] DM []HTN [] MICHELLE []GERD [] OTH: PRIVATE PAY: [] NO []YES DATE OF INITIAL BENEFITS VERIFICATION: TRANSFER FU: [] YES [] NO PRIMARY INSURANCE: Payor: [employer] MEDICARE ADVANTAGE / Plan: [employer] MEDICARE / [...] 1) Scheduled at new pt surgeon visit: Fire Regulator (RD) for a Nutrition Assessment (BNA) and Pre-operative Diet and Exercise (DE)appointment #1. [x] Patient reminded to arrive 15 [...] before and after surgery. documented in this [facility]03-26-2025 History of Present illness Narrative* Mattie Brady LPN - 02/03/2025 10:40 AM EDT See TE records requests - Bariatric records for further documentation * Trish Bhatia APRN - [facility] - 02/03/2025 10:40 AM EDT [facility] SURGICAL WEIGHT LOSS MANAGEMENT PROGRAM SUPERVISED DIET AND EXERCISE SURGICAL PREPARATORY REGIMEN PROGRESS NOTE INITIAL EVALUATION Patient: Jaime Oneill Service Date: 02/03/2025 Date of : 1965 Patient History/Assessment Summary: The patient is a pleasant 59 y.o. year old female, who stands Height: 5' 5 (165.1 cm) ([facility]) tall with a weight of Weight: [...] (113 kg) Initial BMI: Initial BMI: 41.43 [place] Body Weight: [place] Body Weight: 125 lb (56.7 kg) Excess Body Weight: EBW: 124 lb Physical Examination: BP 116/76 Pulse 94 Temp 36.4 C (97.5 F) Resp 18 Ht 5' 5 (1.651 m) Comment: BCC Wt 249 lb(113 kg) BMI 41.44 kg/m General: This patient is alert and oriented and is in no apparent distress. Cardiac: Regular rate Respiratory: No evidence of respiratory distress Musculoskeletal: No cyanosis, No calf tenderness/No restrictions of movement, is ambulatory withoutassistance; Psychological: Patient's mood is appropriate Current Diet This patient s current diet is:high in simple carbohydrates Reviewed PAST DIET HISTORY FORM and CURRENT DIET HISTORY FORM with patient (located in [employer]) Her diet contains adequate amounts of [...] <9> Pt has a good understanding of dietbut will try to increase physical activity. - F/U in one month. INITIAL D/E 11/13 Goals: Protein will be added to all carbs Will incorporate vegan recipes Will incorporate protein smoothie after work out Discussed surgical checklist with patient. Answered patient's questions. Discussed folder given to patient with information on food, such as, eating, carbohydrate and protein snacks, mindful eating,low-carb snack ideas, and 7 rules of eating. [...] mouth daily. CHOLECALCIFEROL (VITAMIN D-3) 250 MCG (97368 UT) TABLET Take 10,000 Units by mouth [...] No medications on file documented in this [facility]03-20-2025 Telephone encounter Note* Telephone Encounter - Mattie Brady LPN - 01/28/2025 1:28 PM EDT Orders / pre op check list placed in folder for D/E 02/03/2025 W/ MGS. [facility] HospitalVyjlpv05-91-8546 Miscellaneous Notes* Telephone Encounter - Mattie Brady LPN - 01/28/2025 1:28 PM EDT Orders / pre op check list placed in folder for D/E 02/03/2025 W/ MGS. * Addendum Note - KENTON Jerez CNP - 01/28/2025 11:34 AM EDT Addended by: TRISH BHATIA on: 01/28/2025 11:34 AM Modules accepted: Orders * Telephone Encounter - KENTON Jerez CNP - 01/28/2025 11:34 AM EDT Orders signed. Called and left voicemail for patient to discuss decision of procedure she would like to have. * Addendum Note - Mattie Brady LPN - 01/28/2025 9:37 AM EDTAddended by: MATTIE BRADY on: 01/28/2025 09:37 AM Modules accepted: Orders * Telephone Encounter - Mattie Brady LPN - 01/28/2025 9:33 AM EDT EGD order sent to 260 senior power scheduler, labs pended, Pre op check list scanned to media. * Telephone Encounter - Mattie Brady LPN - 01/28/2025 9:31 AM EDT PLAN Encounter Diagnoses Name Primary? Morbid obesity, unspecified obesity type (HCC) Gastroesophageal reflux disease without esophagitis Morbid obesity with BMI of 40.0-44.9, adult (HCC) Hypothyroidism, unspecified type I have recommended proceeding with the evaluation and work-up for the primary procedure as outlinedbelow: PATIENT SUMMARY Jaime GOODE 59 y.o. female [...] related to anesthesia, conversion from laparoscopic to andopen procedure, the need for reoperative or endoscopic therapy, the potential for prolonged mechanical ventilation, and . All questions were fully answered to the patient's satisfaction and theywish to proceed with surgical intervention. Patient with [...] full chart rreview was performed by myself. * Telephone Encounter - Rajani GaytanMartha Acevedo - 01/25/2025 2:25 PM EDT Initial New [facility] surgical patient Navigation & Financial Counseling Discussion Patient Communication: In office SURGEON: [] JANELLE [] AD [x] MP [] TB [] LM PROCEDURE: [] LRYGB [] LSG [] MARYLIN-S [] MARYLIN [] UNDECIDED [] REV: SPECIFY: Confirmed pt wants to continue with surgical program/plan [] YES [] NO (complete program withdrawalnote/process) CO-MORBIDS: [] NONE [] DM []HTN [] MICHELLE []GERD [] OTH: PRIVATE PAY: [] NO []YES DATE OF INITIAL BENEFITS VERIFICATION: TRANSFER FU: [] YES [] NO PRIMARY INSURANCE: Payor: [employer] MEDICARE ADVANTAGE / Plan: [employer] MEDICARE / Product Type: Medicare HMO / [...] 1) Scheduled at new pt surgeon visit: Fire Regulator (RD) for a Nutrition Assessment (BNA) and Pre-operative Diet and Exercise (DE)appointment #1. [x] Patient reminded to arrive 15 [...] before and after surgery. documented in this [facility]03-20-2025 Note* Addendum Note - KENTON Jerez CNP - 01/28/2025 11:34 AM EDTAddended by: TRISH ARAUZ on: 01/28/2025 11:34 AM Modules accepted: Orders [facility] HospitalCjgxlg27-57-5739 Note* Addendum Note - KENTON Jerez CNP - 01/28/2025 11:34 AM EDTAddended by: TRISH BHATIA on: 01/28/2025 11:34 AM Modules accepted: Orders [facility] HospitalGbznnr57-74-6580 Note* Addendum Note - KENTON Jerez CNP - 01/28/2025 11:34 AM EDTAddended by: TRISH BHATIA on: 01/28/2025 11:34 AM Modules accepted: Orders [address]Yijdtw55-99-7598 Note* Addendum Note - KENTON Jerez CNP - 01/28/2025 11:34 AM EDTAddended by: TRISH BHATIA on: 01/28/2025 11:34 AM Modules accepted: Orders [address]Cnqmsp86-17-5417 Note* Addendum Note - KENTON Jerez CNP - 01/28/2025 11:34 AM EDTAddended by: TRISH BHATIA on: 01/28/2025 11:34 AM Modules accepted: Orders [address]Xizeyl68-62-3204 Note* Addendum Note - KENTON Jerez CNP - 01/28/2025 11:34 AM EDTAddended by: TRISH BHATIA on: 01/28/2025 11:34 AM Modules accepted: Orders [address]Bcgelz40-98-1184 Note* Addendum Note - KENTON Jerez CNP - 01/28/2025 11:34 AM EDTAddended by: TRISH BHATIA on: 01/28/2025 11:34 AM Modules accepted: Orders [address]Yemexb37-64-8754 Note* Addendum Note - KENTON Jerez CNP - 01/28/2025 11:34 AM EDTAddended by: TRISH BHATIA on: 01/28/2025 11:34 AM Modules accepted: Orders [place] [address]Nwnjqx70-81-8308 Note* Addendum Note - KENTON Jerez CNP - 01/28/2025 11:34 AM EDTAddended by: TRISH BHATIA on: 01/28/2025 11:34 AM Modules accepted: Orders [facility] HospitalLwykrq42-86-8991 Note* Addendum Note - KENTON Jerez CNP - 01/28/2025 11:34 AM EDTAddended by: TRISH BHATIA on: 01/28/2025 11:34 AM Modules accepted: Orders [facility] HospitalHkmrws33-78-6450 Note* Addendum Note - KENTON Jerez CNP - 01/28/2025 11:34 AM EDTAddended by: TRISH BHATIA on: 01/28/2025 11:34 AM Modules accepted: Orders [address]Vwdwlf59-80-7164 Note* Addendum Note - KENTON Jerez CNP - 01/28/2025 11:34 AM EDTAddended by: TRISH BHATIA on: 01/28/2025 11:34 AM Modules accepted: Orders [facility] HospitalIlzzox35-21-2563 NoteOrders signed. Called and left voicemail for patient to discuss decision of procedure she would like to have.[facility] [id number] Telephone encounter Note* Telephone Encounter - KENTON Jerez CNP - 01/28/2025 11:34 AM EDT Orders signed. Called and left voicemail for patient to discuss decision of procedure she would like to have. [address]Zfzgmm61-35-7407 Note* Addendum Note - Mattie Brady LPN - 01/28/2025 9:37 AM EDTAddended by: MATTIE BRADY on: 01/28/2025 09:37 AM Modules accepted: Orders [address]Kffwcq44-20-0611 Note* Addendum Note - Mattie Brady LPN - 01/28/2025 9:37 AM EDTAddended by: MATTIE BRADY on: 01/28/2025 09:37 AM Modules accepted: Orders [address]Kycxcn41-76-4711 Note* Addendum Note - Mattie Brady LPN - 01/28/2025 9:37 AM EDTAddended by: MATTIE BRADY on: 01/28/2025 09:37 AM Modules accepted: Orders [address]Fkvtpe99-30-2414 Note* Addendum Note - Mattie Brady LPN - 01/28/2025 9:37 AM EDTAddended by: MATTIE BRADY on: 01/28/2025 09:37 AM Modules accepted: Orders [address]Dadvbq09-78-4198 Note* Addendum Note - Mattie Brady LPN - 01/28/2025 9:37 AM EDTAddended by: MATTIE BRADY on: 01/28/2025 09:37 AM Modules accepted: Orders [address]Kpmlfs50-37-4227 Note* Addendum Note - Mattie Brady LPN - 01/28/2025 9:37 AM EDTAddended by: MATTIE BRADY on: 01/28/2025 09:37 AM Modules accepted: Orders [address]Selzmq22-57-2725 Note* Addendum Note - Mattie Brady LPN - 01/28/2025 9:37 AM EDTAddended by: MATTIE BRADY on: 01/28/2025 09:37 AM Modules accepted: Orders [place] [address]Vzmgsv40-24-3201 Note* Addendum Note - Mattie Brady LPN - 01/28/2025 9:37 AM EDTAddended by: MATTIE BRADY on: 01/28/2025 09:37 AM Modules accepted: Orders [place] [address]Gudmrf99-91-1424 Note* Addendum Note - Mattie Brady LPN - 01/28/2025 9:37 AM EDTAddended by: MATTIE BRADY on: 01/28/2025 09:37 AM Modules accepted: Orders [place] [address]Tygmhi40-40-7505 Note* Addendum Note - Mattie Brady LPN - 01/28/2025 9:37 AM EDTAddended by: MATTIE BRADY on: 01/28/2025 09:37 AM Modules accepted: Orders [address]Rsxupf35-92-8499 Note* Addendum Note - Mattie Brady LPN - 01/28/2025 9:37 AM EDTAddended by: MATTIE BRADY on: 01/28/2025 09:37 AM Modules accepted: Orders [address]Keabpy00-11-5225 Note* Addendum Note - Mattie Brady LPN - 01/28/2025 9:37 AM EDTAddended by: MATTIE BRADY on: 01/28/2025 09:37 AM Modules accepted: Orders [facility] Gjuvuu44-38-9983 Telephone encounter Note* Telephone Encounter - Mattie Brady LPN - 01/28/2025 9:33 AM EDT EGD order sent to 260 senior power scheduler, labs pended, Pre op check list scanned to media. [facility] Zdniqa88-20-9692 History of Present illness Narrative* Mattie Brady LPN - 01/28/2025 9:32 AM EDT ENDOSCOPY ORDERS To be scheduled with: Dr. Santiago Patient is: Pre-op/Pre-Bariatric Surgery CPT code: EGD with biopsy- CPT 11631 Diagnosis: GERD- K21.9 If pre-op, Diet & [...] need to be obtained prior to scheduling * Miriam Oscar - 01/28/2025 9:32 AM EDT Print * Miriam Oscar - 01/28/2025 9:32 AM EDT Attempt to contact patient, no answer, left voice message regarding scheduling an EGD procedure * Miriam Oscar - 01/28/2025 9:32 AM EDT Patient is scheduled for EGD with biopsy- CPT 41055 on 02/25/2025 at 1:45 95 [facility]CH Contact attempts- 3 must be made in 2 different forms. Discussed with patient via phone and sent [employer] message after confirming pt active on [employer] Important info discussed as applicable: Is patient [...] needs held 3 days prior to EGD * Mackenzie Norris - 01/28/2025 9:32 AM EDT ADDED TO OUTLOOK * Miriam Oscar - 01/28/2025 9:32 AM EDT Auth required: Yes Insurance: [employer] [place] [facility] [place] [id number] Authorization number: [id number] Valid dates: 02/25/25 to 05/27/2025 Notes: Tracking # [id number] documented in this [facility]03-20-2025 History of Present illness Narrative* Mattie WilkesALEXSANDER dillon - 01/28/2025 9:32 AM EDT ENDOSCOPY ORDERS To be scheduled with: Dr. Santiago Patient is: Pre-op/Pre-Bariatric Surgery CPT code: EGD with biopsy- CPT 68631 Diagnosis: GERD- K21.9 If pre-op, Diet & [...] need to be obtained prior to scheduling * Miriam Oscar - 01/28/2025 9:32 AM EDT Print * Miriam Oscar - 01/28/2025 9:32 AM EDT Attempt to contact patient, no answer, left voice message regarding scheduling an EGD procedure * Miriam Oscar - 01/28/2025 9:32 AM EDT Patient is scheduled for EGD with biopsy- CPT 08738 on 02/25/2025 at 1:45 95 ARCH Contact attempts- 3 must be made in 2 different forms. Discussed with patient via phone and sent [employer] message after confirming pt active on [employer] Important info discussed as applicable: Is patient [...] needs held 3 days prior to EGD * Mackenzie Norris - 01/28/2025 9:32 AM EDT ADDED TO OUTLOOK * Miriam Oscar - 01/28/2025 9:32 AM EDT Auth required: Yes Insurance: [employer] referred to [employer] ID number: [id number] Authorization number: [id number] Valid dates: 02/25/25 to 05/27/2025 Notes: Tracking # [id number] * Mackenzie Norris - 01/28/2025 9:32 AM EDT Patient is scheduled for EGD with biopsy- CPT 50985 on 03/25/25 at 145PM Contact attempts- 3 must be made in 2 different forms. Discussed with patient via phone and sent [employer] message after confirming pt active on [employer] Important info discussed as applicable: Is patient [...] needs held 3 days prior to EGD * Mackenzie Norris - 01/28/2025 9:32 AM EDT Auth required: Yes Insurance: [employer] referred to [employer] ID number: [id number] Authorization number: [id number] Valid dates: 02/25/25 to 05/27/2025 Notes: Tracking # [id number] documented in this [facility]03-20-2025 NoteAttempt to contact patient, no answer, left voice message regarding scheduling an EGD procedure [facility] [id number] Telephone encounter Note* Telephone Encounter - Mattie Brady LPN - 01/28/2025 9:31 AM EDT PLAN Encounter Diagnoses Name Primary? Morbid obesity, unspecified obesity type (HCC) Gastroesophageal reflux disease without esophagitis Morbid obesity with BMI of 40.0-44.9, adult (HCC) Hypothyroidism, unspecified type I have recommended proceeding with the evaluation and work-up for the primary procedure as outlinedbelow: PATIENT SUMMARY Jaime GOODE 59 y.o. female [...] related to anesthesia, conversion from laparoscopic to andopen procedure, the need for reoperative or endoscopic therapy, the potential for prolonged mechanical ventilation, and . All questions were fully answered to the patient's satisfaction and theywish to proceed with surgical intervention. Patient with [...] rreview was performed by myself. [facility]03-17-2025 NoteInitial New [facility] surgical patient Navigation & Financial Counseling Discussion [...] [] YES [] NO PRIMARY INSURANCE: Payor: [employer] MEDICARE ADVANTAGE / Plan: [employer] MEDICARE / [...] 1) Scheduled at new pt surgeon visit: Fire Regulator (RD) for a Nutrition Assessment (BNA) and [...] communications and lab/testing results before and after surgery.[facility]03-17-2025 Telephone encounter Note* Telephone Encounter - Rajani Acevedo - 01/25/2025 2:25 PM EDT Initial New [facility] surgical patient Navigation & Financial Counseling Discussion Patient Communication: In office SURGEON: [] JANELLE [] SENG [x] MP [] TB [] LM PROCEDURE: [] LRYGB [] LSG [] MARYLIN-S [] MARYLIN [] UNDECIDED [] REV: SPECIFY: Confirmed pt wants to continue with surgical program/plan [] YES [] NO (complete program withdrawalnote/process) CO-MORBIDS: [] NONE [] DM []HTN [] [...] 1) Scheduled at new pt surgeon visit: Fire Regulator (RD) for a Nutrition Assessment (BNA) and Pre-operative Diet and Exercise (DE)appointment #1. [x] Patient reminded to arrive 15 [...] and lab/testing results before and after surgery. [facility] [id number] History of Present illness Narrative* Jordon Goodehermelindorafat, - 01/25/2025 10:20 AM EDT BARIATRIC AND METABOLIC SURGERY [facility] INITIAL EVALUATION - HISTORY AND PHYSICAL 01/25/25 [...] as a result of morbid obesity as outlinedin the past medical history. The patient denies [...] mouth daily. CHOLECALCIFEROL (VITAMIN D-3) 250 MCG (68940 UT) TABLET Take 10,000 Units by mouth [...] excess body weight at 12-18 months post-op, aswell as the possibility of insufficient weight loss [...] and work-up for the primary procedure as outlinedbelow: PATIENT SUMMARY Jaime GOODE 59 y.o. female [...] related to anesthesia, conversion from laparoscopic to andopen procedure, the need for reoperative or endoscopic therapy, the potential for prolonged mechanical ventilation, and . All questions were fully answered to the patient's satisfaction and theywish to proceed with surgical intervention. Patient with [...] Chery FACS Director - Minimally Invasive Surgery ---[facility]--- Patient Care Team: Kell Loza MD as PCP - General (Geriatric Medicine) documented in this [facility]03-17-2025 History of Present illness Narrative* Jordon Santiago DO - 01/25/2025 10:20 AM EDT BARIATRIC AND METABOLIC SURGERY [facility] INITIAL EVALUATION - HISTORY [...] as a result of morbid obesity as outlinedin the past medical history. The patient denies [...] mouth daily. CHOLECALCIFEROL (VITAMIN D-3) 250 MCG (36237 UT) TABLET Take 10,000 Units by mouth [...] excess body weight at 12-18 months post-op, aswell as the possibility of insufficient weight loss [...] and work-up for the primary procedure as outlinedbelow: PATIENT SUMMARY Jaime GOODE 59 y.o. female [...] related to anesthesia, conversion from laparoscopic to andopen procedure, the need for reoperative or endoscopic therapy, the potential for prolonged mechanical ventilation, and . All questions were fully answered to the patient's satisfaction and theywish to proceed with surgical intervention. Patient with [...] Chery FACS Director - Minimally Invasive Surgery ---[facility]--- Patient Care Team: Kell Loza MD as PCP - General (Geriatric Medicine) documented in this [facility]03-17-2025 History of Present illness Narrative* Jordon Santiago DO - 01/25/2025 10:20 AM EDT BARIATRIC AND METABOLIC SURGERY [facility] INITIAL EVALUATION - HISTORY AND PHYSICAL 01/25/25 [...] as a result of morbid obesity as outlinedin the past medical history. The patient denies [...] mouth daily. CHOLECALCIFEROL (VITAMIN D-3) 250 MCG (55045 UT) TABLET Take 10,000 Units by mouth [...] excess body weight at 12-18 months post-op, aswell as the possibility of insufficient weight loss [...] and work-up for the primary procedure as outlinedbelow: PATIENT SUMMARY Jaime GOODE 59 y.o. female [...] related to anesthesia, conversion from laparoscopic to andopen procedure, the need for reoperative or endoscopic therapy, the potential for prolonged mechanical ventilation, and . All questions were fully answered to the patient's satisfaction and theywish to proceed with surgical intervention. Patient with [...] Chery FACS Director - Minimally Invasive Surgery ---[facility]--- Patient Care Team: Kell Loza MD as PCP - General (Geriatric Medicine) documented in this [facility]03-17-2025 NoteBARIATRIC AND METABOLIC SURGERY [facility] INITIAL EVALUATION - HISTORY AND PHYSICAL 01/25/25 [...] mouth daily. CHOLECALCIFEROL (VITAMIN D-3) 250 MCG (59649 UT) TABLET Take 10,000 Units by mouth [...] 60-70% of her ex (more content not included)...[facility]09-17-2024 History of Present illness Narrative* Luzma Patton LPN - 07/28/2024 11:00 AM EDT Subjective Patient ID: Jaime Oneill is a [...] reflux yes. Black stools No. Constipation No. DiarrheaNo. Loss of appetite no. Nausea No. Vomiting No. UROLOGY: Negative for dysuria, urinary urgency, kidney stones. PSYCHOLOGY: admits to depression, anxiety,admits to high stress level (sometimes) Objective Physical Exam Assessment/Plan Luzma Patton LPN 07/20/24 1:38 PM * Karie Fallon, [facility]-MECHANICAL INSULATOR - 07/28/2024 11:00 AM EDT Subjective Patient ID: Jaime Oneill is a 58 y.o. female who presents for No chief complaint on file.. HPI With patient's permission, this is a Telemedicine visit with video and audio. Jaime was unable tohear me through our virtual visit, so I called her on the telephone to complete the visit. Jaime is following up today for NSMWL. She self reports a weight of 241, which is a 5 pound weight loss since she was last in the office in February. She tells me that her PCP put her on Ozempic for weight loss and medication for depression. She tells me that he gave her samples for the Ozempic, enough for 6weeks. [place] She [...] Soto 07/28/24 11:06 AM documented in this [facility] Work Phone: [phone] 160-336304-10-2024 History of Present illness Narrative* Luzma Patton LPN - 02/19/2024 11:00 AM EDT Subjective Patient ID: Jaime Oneill is a [...] Assessment/Plan Luzma Patton LPN 02/12/24 8:58 AM * Karie Silas Fallon, [employer]-MECH[employer]ICAL INSULATOR - 02/19/2024 11:00 AM EDT Subjective Patient ID: Jaime Oneill is a 58 y.o. female who presents for Follow-up ([facility]). HPI Jaime is here today for [facility] follow up. She has gained 1 pound [...] She started going back to old habits. Sheis exercising 3 days per week. She is [...] Primary K21.9 Severe obesity (BMI >= 40) (CMS/HCC) E66.01 Relevant Medications metFORMIN (Glucophage) 1,000 mg [...] sure she is tolerating the side effects ofthe medication. We also discussed adding a MVI. REBEKAH Soto 02/19/24 11:12 AM documented in this [facility] Work Phone: [phone]) 826-307412-05-2023 History of Present illness Narrative* Luzma Patton LPN - 10/15/2023 10:00 AM EST NSMWL 3 START WT: 256 IDEAL WT: [...] Negative for depression, anxiety, high stress level. * REBEKAH Soto - 10/15/2023 10:00 AM EST Subjective Patient ID: Jaime Oneill is a 57 y.o. male who presents for Follow-up (Nswl 3`). KENTON Tony is following up today for NSWL. She has lost 4 pounds since her last appointment. She has been counting her calories. She usually tracking between 7628-4839 calories per day. She tells me that [...] Severe obesity (BMI >= 40) (CMS/[facility]) - Primary E66.01 Relevant Medications metFORMIN (Glucophage) 500 mg tablet We will increase Jaime's metformin to 1000mg BID. She will call the office if she develops side effects. I encouraged her to start taking Miralax to help with her constipation. documented in this [facility] Work Phone: Discharge summary Author Bravo Luz [facility] Note Date/Time August 07, 2025 11:26am [facility] Medical Records Department [address] [place] [address] Emergency Department Summary 08/07/25 MR#: [id number] Acct: [id number] Name: JAIME ONEILL Rep #:[id number] : 1965 59 From: Bravo Luz MD PCP: Dr. Edilberto Loza MD Status:DEP E R Location: ED HPI HPI - GI History of Present Illness Chief Complaint: Constipation Narrative Narrative: 59-year-old female past medical history of gastric bypass surgery within the last month a month and a half, end of June, presents with constipation that she has had over the last 3 days. States she has not had a bowel movement. Sheis nauseated but not vomiting. No fevers or chills. She states she usually hasbowel movements at least 3 times a day. She started eating regular food. She followed up with her gastric bypass surgeon at [facility] on Saturday, approximately 5 days ago. She had been doing well until about Saturday of thisweek when she stopped having bowel movements. She states that she is afraid to eat now. Her nausea has resolved. She states when she sits on the toilet and tries to have a bowel movement, she has pain. [facility] Medical History history of thoracic fracture Acid indigestion Hyperthyroidism Home Medications ?Medication ?Instructions ?Recorded ?Last Taken ?Type biotin 5 mg capsule 5 mg PO DAILY 08/07/2508/04 History bisacodyl 10 mg rectal suppository 10 mg IN DAILY PRN constipation 08/07/25 Unknown Rx (Laxative (bisacodyl)) #12 ea black cohosh 200 mg capsule 200 mg PO DAILY 08/07/25 0 08/04/25 History calcium citrate 500 mg PO TID 08/07/2508/04 History cholecalciferol (vitamin D3) 50 100 mcg PO DAILY 08/0708/04/25 History mcg (2,000 unit) capsule cyanocobalamin (vitamin B-12) 5,000 mcg PO DAILY 08/0708/04/25 History 5,000 mcg capsule levothyroxine 125 mcg tablet 125 mcg PO DAILY 08/07/25 08/07/25 History multivitamin (Daily Multi-Vitamin 1 tab PO DAILY 08/0708/04/25 History tablet) pantoprazole 40 mg tablet,delayed 40 mg PO DAILY 08/0708/06/25 History release thiamine mononitrate (vit B1) 50 50 mg PO DAILY 08/04/25 History mg tablet vitamin B complex (Vitamins B 1 cap PO DAILY 08/07/25 08/04/25 History Complex capsule) Allergy/AdvReac Type Severity Reaction Status Date / Time No Known Allergies Allergy Verified 08/07/25 07:24 Surgical History Gastric bypass status for obesity History of tubal ligation History of partial hysterectomy History of cholecystectomy Social History Smoking Status: Former smoker Tobacco: How many years used: 32 second hand exposure: Yes quit status: considering quitting alcohol intake: current alcohol intake frequency: 0-2 drinks per day Alcohol type: hard liquor substance use type: does not use what type of physical activity do you participate in: none ROS ROS ED ROS Narrative Review of systems positive for lack of bowel movement for 3 days. Abdominal pain when straining. Status post gastric bypass by about a month. No fevers orchills. Currently no nausea or vomiting. No true exacerbating or alleviating factors. Decreased p.o. intake. EXAM Physical Exam Narrative Exam Narrative: Afebrile. Vital signs noted. Nontoxic-appearing. Cardiovascular examination reveals a regular rate and rhythm. Lungs are clear to auscultation bilaterally. The abdomen is soft, nontender, with positive bowel sounds. No guarding or rebound. Const Vital Signs: 08/07/25 07:24 08/07/25 11:24 08/07/25 11:25 Temperature 98.3 F 98.3 F Temperature Source Oral Pulse Rate 78 65 65 Respiratory Rate 16 16 16 Blood Pressure 141/81 H 134/81 H 134/81 H Blood Pressure Mean 101 98 98 Pulse Ox 99 99 Oxygen Delivery Method Room Air MDM MDM MDM Narrative Medical decision making narrative: Differential diagnosis includes but not limited to partial small bowel obstruction/bowel obstruction versus constipation versus nonspecific abdominal pain versus pancreatitis. I do feel she requires CT imaging with p.o. and IV contrast as she is status post gastric bypass. She is no longer taking opiates. She may have dehydration or other electrolyte imbalance as she states she has had decreased p.o. intake. I reviewed her laboratory work and she has normal white count of 5.8 with hemoglobin 12.5, hematocrit 38.1, platelet count normal at 163. CMP is remarkable for creatinine low at 0.69 with a normal BUN of 9, no evidence of dehydration. Normal sodium and potassium. LFTs show slightly elevated AST and ALT at 49 and 55 respectively. I think is nonspecific. Lipase normal at 21 so I doubt pancreatitis. Urinalysis shows contaminated specimen with 10-25 epithelial cells. I do not feel antibiotics are indicated. She is slightly dehydrated with 15 ketones. I discussed the patient with Dr. Anderson. He suggested increasing MiraLAX, and also having the patient try enemas versus suppositories. I feel she can be discharged to follow-up. Return instructions to the emergency department were reviewed. Disposition is discharged home in stable condition. History & Record Review Discussion w/independent historian: Patient Additional record(s) reviewed:: Prior ED visit (Noncontributory to current chiefcomplaint. Previous visit remote.) Lab Data Attestation: I reviewed the patient's lab results. Labs: Laboratory Results - last 24 hr 08/07/25 08/07/25 07:55 08:10 WBC 5.8 RBC 4.18 L Hgb 12.5 Hct 38.1 MCV 91.1 MCH 29.9 MCHC 32.8 RDW Std Deviation 45.6 H RDW Coeff of Julio 13.6 Plt Count 163 MPV 12.0 Immature Gran % (Auto) 0.200 Neut % (Auto) 69.7 Lymph % (Auto) 18.7 L [place] % (Auto) 9.2 Eos % (Auto) 1.7 Baso % (Auto) 0.5 Absolute Neuts (auto) 4.1 Absolute Lymphs (auto) 1.09 Nucleated RBC % 0 Sodium 142 Potassium 3.4 Chloride 103 Carbon Dioxide 25.6 Anion Gap 14 BUN 9 Creatinine 0.69 L Estim Creat Clear Calc 102.24 Est GFR (MDRD) Non-Af 99 BUN/Creatinine Ratio 13.2 Glucose 105 H Calcium 9.2 Total Bilirubin 0.49 AST 49 H ALT 55 H Alkaline Phosphatase 96 Total Protein 7.4 Albumin 4.2 Globulin 3.1 Albumin/Globulin Ratio 1.4 Lipase 21 Urine Color Yellow Urine Clarity Clear Urine pH 6.0 Ur Specific [place] 1.020 Urine Protein 15 H Urine Glucose (UA) Normal Urine Ketones 15 H Urine Occult Blood 10 H Urine Nitrite Negative Urine Bilirubin Negative Urine Urobilinogen 1 H Ur Leukocyte Esterase 500 H Urine RBC 0 SEEN Urine WBC 10-25 SEEN Ur Squamous Epith Cells 10-25 SEEN Urine Bacteria 2+ Urine Mucus 1+ Radiography Diagnostic Testing: Clinical Impression(s) from Imaging Studies Abdomen/Pelvis CT 08/07/25 07:47 IMPRESSION: A punctate stone at the lower pole of the left kidney. No hydronephrosis. Otherwise, no acute abdominopelvic abnormalities. Reading Location: [facility] Discharge Plan Triage Chief Complaint: Constipation ED Provider: Bravo Luz Dx/Rx/DC Orders Clinical Impression: Constipation, Abdominal pain, History of gastric bypass Instructions: Bariatric Surg Post Op 6 Weeks, Bariatric Surg Lifestyle Changes,ED Abdominal Pain Unkn Cause Fem, ED Constipation (Adult) Prescriptions: New bisacodyl [Laxative (bisacodyl)] 10 mg suppository 10 mg IN DAILY PRN (Reason: constipation) Qty: 12 0RF No Action pantoprazole 40 mg tablet,delayed release (DR/EC) 40 mg PO DAILY levothyroxine 125 mcg tablet 125 mcg PO DAILY multivitamin [Daily Multi-Vitamin] Tablet 1 tab PO DAILY calcium citrate 250 mg calcium tablet 500 mg PO TID thiamine mononitrate (vit B1) 50 mg tablet 50 mg PO DAILY cyanocobalamin (vitamin B-12) 5,000 mcg capsule 5,000 mcg PO DAILY cholecalciferol (vitamin D3) 50 mcg (2,000 unit) capsule 100 mcg PO DAILY black cohosh 200 mg capsule 200 mg PO DAILY biotin 5 mg capsule 5 mg PO DAILY vitamin B complex [Vitamins B Complex] Capsule 1 cap PO DAILY Primary Care Provider: Edilberto Loza Chi Referrals: Monica [Other] - 1 Week if not improving Edilberto Loza Chi, MD [Primary Care Provider, Geriatrics] Activity Restrictions/Additional Instructions: Increase your MiraLAX to twice a day. Follow-up with your surgeon, Dr. Anderson in 1 week if not improving. Return with fever, nausea and vomiting, increased pain, new or worsening symptoms. Print Language: Austrian Disposition Disposition: Home, Self Care Discharge Date/Time: 08/07/25 11:26 What to do if you have Problems For any increased pain, shortness of breath, bleeding, nausea or vomiting, chestpain, or any unexpected problems, contact your Primary Care Provider. Call [facility] ([phone]) or report to the closest Emergency Room. Call 911 if necessary. 08/07/25 1158 <Electronically signed by Bravo Luz MD> Cosigner Signature (if applicable): CC: Dr. Edilberto Loza MD ~ Signed [facility] Work Phone: Evaluation + Plan note No data available for this section [facility] Evaluation noteNo assessment information available [facility] Work Phone: Evaluation note* Diagnosis Severe obesity (BMI >= 40) (CMS/HCC)- Primary documented [facility] Work Phone: Evaluation note* Diagnosis Gastroesophageal reflux disease, unspecified whether esophagitis present- Primary Severe obesity (BMI >= 40) ([facility]) documented in this encounter [facility] Work Phone: Evaluation note* Diagnosis Gastroesophageal reflux disease, unspecified whether esophagitis present- Primary Severe obesity (BMI >= 40) ([facility]) documented in this encounter [facility] Work Phone: Evaluation note* Diagnosis Morbid obesity, unspecified obesity type (HCC) Gastroesophageal reflux disease without esophagitis Esophageal reflux Morbid obesity with BMI of 40.0-44.9, adult (HCC) Hypothyroidism, unspecified type documented in this encounter [facility] [employer]* Diagnosis Gastroesophageal reflux disease without esophagitis Esophageal reflux Morbid obesity with BMI of 40.0-44.9, adult (HCC) Hypothyroidism, unspecified type Pre-op testing Unspecified pre-operative examination documented in this encounter [facility] [employer]* Diagnosis Morbid obesity, unspecified obesity type (HCC) Gastroesophageal reflux disease without esophagitis Esophageal reflux Morbid obesity with BMI of 40.0-44.9, adult (HCC) Hypothyroidism, unspecified type documented in this encounter [facility] [employer] [facility]* Diagnosis Gastroesophageal reflux disease without esophagitis Esophageal reflux Morbid obesity with BMI of 40.0-44.9, adult (HCC) Hypothyroidism, unspecified type Pre-op testing Unspecified pre-operative examination documented in this encounter [facility] [employer] [facility]* Diagnosis Gastroesophageal reflux disease without esophagitis Esophageal reflux Hypothyroidism, unspecified type Morbid obesity with BMI of 40.0-44.9, adult (HCC) documented in this encounter [facility] [employer] [facility]* Diagnosis Pre-op testing- Primary Unspecified pre-operative examination Gastroesophageal reflux disease without esophagitis Esophageal reflux Morbid obesity with BMI of 40.0-44.9, adult (HCC) Cigarette nicotine dependence in remission Gastro-esophageal reflux disease without esophagitis documented in this encounter [facility] [employer] [facility]* Diagnosis Gastroesophageal reflux disease without esophagitis Esophageal reflux Morbid obesity with BMI of 40.0-44.9, adult (HCC) Hypothyroidism, unspecified type Pre-op testing Unspecified pre-operative examination Gastro-esophageal reflux disease without esophagitis documented in this encounter [facility] [employer] [facility]* Diagnosis Morbid obesity with BMI of 40.0-44.9, adult (HCC)- Primary documented in this encounter [facility] note* Diagnosis Morbid obesity with BMI of 40.0-44.9, adult (HCC)- Primary documented in this encounter [facility] note* Diagnosis Other disorder of eating Mild episode of recurrent major depressive disorder (HCC) Other specified anxiety disorders documented in this encounter [facility] note* Diagnosis Other disorder of eating Mild episode of recurrent major depressive disorder (HCC) Other specified anxiety disorders [facility] [place] [facility]* Diagnosis Gastroesophageal reflux disease without esophagitis Esophageal reflux Hypothyroidism, unspecified type Morbid obesity with BMI of 40.0-44.9, adult (HCC) Gastro-esophageal reflux disease without esophagitis documented [facility] [place] [facility]* Diagnosis Gastroesophageal reflux disease without esophagitis Esophageal reflux Morbid obesity with BMI of 40.0-44.9, adult (HCC) Hypothyroidism, unspecified type Pre-op testing Unspecified pre-operative examination Gastro-esophageal reflux disease without esophagitis documented in this encounter [facility] note* Diagnosis Gastroesophageal reflux disease without esophagitis Esophageal reflux Morbid obesity with BMI of 40.0-44.9, adult (HCC) Hypothyroidism, unspecified type Pre-op testing Unspecified pre-operative examination Gastro-esophageal reflux disease without esophagitis documented in this encounter [facility] note* Diagnosis Other disorder of eating Mild episode of recurrent major depressive disorder (HCC) Other specified anxiety disorders Gastro-esophageal reflux disease without esophagitis [facility]* Diagnosis Gastro-esophageal reflux disease without esophagitis [facility] [place] [facility] Diagnosis Gastroesophageal reflux disease without esophagitis Esophageal reflux Morbid obesity with BMI of 40.0-44.9, adult (HCC) Hypothyroidism, unspecified type Pre-op testing Unspecified pre-operative examination documented [facility] [place] [facility]* Diagnosis Morbid obesity with BMI of 40.0-44.9, adult (HCC)- Primary Gastroesophageal reflux disease without esophagitis Esophageal reflux documented in this [facility] [place] [facility]* Diagnosis Pre-operative laboratory examination- Primary Pre-procedural laboratory examination Gastroesophageal reflux disease without esophagitis Esophageal reflux Morbid obesity with BMI of 40.0-44.9, adult (HCC) Hypothyroidism, unspecified type Pre-op testing Unspecified pre-operative examination documented [facility] [place] [facility]* Diagnosis Pre-operative laboratory examination- Primary Pre-procedural laboratory examination Gastroesophageal reflux disease without esophagitis Esophageal reflux Morbid obesity with BMI of 40.0-44.9, adult (HCC) Hypothyroidism, unspecified type Pre-op testing Unspecified pre-operative examination documented [facility] this [facility] [place] [facility]* Diagnosis Morbid obesity with BMI of 40.0-44.9, adult (HCC)- Primary Obesity, morbid, BMI 40.0-49.9 (HCC)- Primary Morbid obesity with BMI of 40.0-44.9, adult (HCC) documented in this [facility] [place] [facility]* Diagnosis Morbid obesity with BMI of 40.0-44.9, adult (HCC)- Primary Morbid obesity with BMI of 40.0-44.9, adult (HCC)- Primary Morbid obesity with BMI of 40.0-44.9, adult (HCC) documented in this [facility] [place] [facility]* Diagnosis Morbid obesity with BMI of 40.0-44.9, adult (HCC)- Primary Morbid obesity with BMI of 40.0-44.9, adult (HCC)- Primary Gastroesophageal reflux disease without esophagitis Esophageal reflux Hypothyroidism, unspecified type Morbid obesity with BMI of 40.0-44.9, adult ([facility]) documented in this encounter [facility] [place] [facility]* Diagnosis Deficiency of multiple nutrient elements- Primary Other nutritional deficiency Morbid obesity with BMI of 40.0-44.9, adult (HCC)- Primary Morbid obesity with BMI of 40.0-44.9, adult (HCC) [facility] [place] [facility]* Diagnosis Morbid obesity, unspecified obesity type (HCC) Gastroesophageal reflux disease without esophagitis Esophageal reflux Morbid obesity with BMI of 40.0-44.9, adult (HCC) Hypothyroidism, unspecified type H/O gastric bypass- Primary Deficiency of multiple nutrient elements Other nutritional deficiency Deficiency of other specified B group vitamins documented in this encounter [facility] [place] [facility]* Diagnosis Morbid obesity with BMI of 40.0-44.9, adult (HCC)- Primary Obesity, morbid, BMI 40.0-49.9 ([facility]) Morbid obesity with BMI of 40.0-44.9, adult ([facility]) Postoperative pain Other acute postoperative pain Obesity, morbid, BMI 40.0-49.9 ([facility]) H/O gastric bypass- Primary Deficiency of multiple nutrient elements Other nutritional deficiency Deficiency of other specified B group vitamins documented in this encounter [facility] [place] [facility]* Diagnosis H/O gastric bypass- Primary Deficiency of multiple nutrient elements Other nutritional deficiency Deficiency of other specified B group vitamins Morbid obesity with BMI of 40.0-44.9, adult (HCC) Gastroesophageal reflux disease without esophagitis Esophageal reflux documented in this encounter [facility] note* Diagnosis H/O gastric bypass- Primary Deficiency of multiple nutrient elements Other nutritional deficiency Deficiency of other specified B group vitamins Class 2 severe obesity due to excess calories with serious comorbidity and body mass index (BMI) of 38.0 to 38.9 in adult (HCC) Gastroesophageal reflux disease without esophagitis Esophageal reflux documented in this encounter [facility] [place] [facility]* Diagnosis Onset Date Resolution Status Admit Date Abnormal mammogram of right breast acute August 09, 2025 1:28pm [facility] Work Phone: Hospital Discharge instructions No data available for this section [facility] Hospital Discharge instructions* Attachments The following attachments cannot be sent through Care Everywhere. * Upper GI Endoscopy Discharge Instructions (Austrian) * Moderate Sedation in Adults Discharge Instructions (Austrian) [facility] Additional Instructions Increase your MiraLAX to twice a day. Follow-up with your surgeon, Dr. Anderson in 1 week if not improving. Return with fever, nausea and vomiting, increased pain, new or worsening symptoms.[facility] Work Phone: Progress note No data available for this section [facility] Reason for referral (narrative)No reason for referral information [facility]WSt. [facility] Work Phone: Reason for visit Narrative* Auth/Cert (Routine) Specialty Diagnoses / Procedures Referred By Contac t Referred To Contact Diagnoses Gastro-esophageal reflux disease without esophagitis Procedures IN EGD TRANSORAL BIOPSY SINGLE/MULTIPLE ESOPHAGOGASTRODUODENOSCOPY, WITH BIOPSY Jordon Santiago DO [address] [facility] [address] [place] [phone] Phone: tel: fax: [facility] [address] [place] [address] Phone: tel: Referral ID Status Reason Start Date Expiration Date Visits Re quested Visits Authorized [id number] [facility] Auth/Cert (Routine) Specialty Diagnoses / Procedures Referred By Anita lentz Referred To Contact Diagnoses Morbid obesity with BMI of 40.0-44.9, adult (HCC) Procedures IN LAPS GSTR RSTCV PX W/BYP DIANA-EN-Y LIMB <150 CM IN UNLISTED LAPAROSCOPIC PROCEDURE LIVER IN LAPS RPR PARAESPHGL HRNA INCL FUNDPLSTY W/O MESH LAPAROSCOPIC DIANA-EN-Y GASTRIC BYPASS LIVER BIOPSY HIATAL HERNIA REPAIR, POSSIBLE OPEN Pamela, Jordon, DO [address] [place] [address] Phone: tel: fax: [facility] OR [address] [place] [address] Phone: tel: Referral ID Status Reason Start Date Expiration Date Visits Re quested Visits Authorized [id number] 1 1 [facility] Summary Purpose Family History No Family History Records FoundNo Family History Records FoundNo Family History Records FoundNo Family History Records FoundNo Family History Records FoundNo Family History Records Found Advance Directives No Advanced Directives Records Found Advance Directive Response Recorded Date/ Time Living Will No January 20, 2018 4:00pm Power of Professor Of Visual Arts No January 20 4:00pm Advance Directive Response Recorded Date/ Time Living Will No January 20, 2018 4:00pm Do you have a Healthcare Power of Professor Of Visual Arts? No January 20, 2018 4:00pm Date Activated [...] Comments 06/30/2025 5:43 AM 07/01/2025 5:18 PM Advance Directive Response Recorded Date/ Time Do you have a Healthcare Power of Professor Of Visual Arts? No August 07, 2025 7:29am Chief Complaint and Reason for Visit Chief Complaint Admit Date LOW BACK PAIN. RX HERE October 22 9:30am Chief Complaint Admit Date HEARTBURN, GERD, OBESITY, PREOP TESTING April 20, 2025 8:52am Chief Complaint Admit Date HEARTBURN, GERD, OBESITY, PREOP TESTING April 20, 2025 8:52am FORMER SMOKER,OTHER DISORDERS OF THE LIZETTE G July 17, 2025 8:49am SCREENING July 23, 2025 2:38pm RT BREAST ABN MAMM July 27, 2025 9:27am Chief Complaint Admit Date HEARTBURN, GERD, OBESITY, PREOP TESTING April 20, 2025 8:52am FORMER SMOKER,OTHER DISORDERS OF THE LIZETTE G July 17, 2025 8:49am SCREENING July 23, 2025 2:38pm RT BREAST ABN MAMM July 27, 2025 9:27am constipation August 07, 2025 7:23am BIRADS 4 August 09, 2025 1:28pm Reason for Visit Admit Date Abnormal mammogram of right breast [facility] 2024 1:28pm Chief Complaint Admit Date FORMER SMOKER,OTHER DISORDERS OF THE LIZETTE G July 17, 2025 8:49am SCREENING July 23, 2025 2:38pm RT BREAST ABN MAMM July 27, 2025 9:27am constipation August 07, 2025 7:23am BIRADS 4 August 09, 2025 1:28pm BIOPSY August 17, 2025 12 :16pm Biopsy August 17, 2025 1: 15pm Additional Source Comments INFORMATION SOURCE (unrecogn ized section and content) DATE CREATED AUTHOR 05/02/2018 [employer] DATE CREATED AUTHOR AUTHOR'S ORGANIZ ATION 06/24/2020 [facility] DATE CREATED AUTHOR AUTHOR'S ORGANIZ ATION 03/19/2023 [facility] ([place]) DATE CREATED AUTHOR AUTHOR'S ORGANIZ ATION 08/01/2024 [facility] DATE CREATED AUTHOR AUTHOR'S ORGANIZ ATION 08/05/2025 [employer] [facility] DATE CREATED AUTHOR AUTHOR'S ORGANIZ ATION 09/21/2025 [facility] Patient Care team informatio n (unrecognized [...] April 30, 2025 End: April 30, 2025 Physical Security Specialist Relationship Specialty Start Date End Date KELL LOZA [address] [place] [place] [id number] Primary Care Provider 08/13/23 Dr. Kell Loza Primary Care Provider 10/15/23 Physical Security Specialist Relationship Specialty Start Date End Date KELL LOZA [address] [place] [place] [id number] Primary Care Provider 08/13/23 Dr. Kell Loza Primary Care Provider 10/15/23 Physical Security Specialist Relationship Specialty Start Date End Date KELL LOZA [address] [facility] [id number] Primary Care Provider 08/13/23 Dr. Kell Loza Primary Care Provider 10/15/23 Physical Security Specialist Relationship Specialty Start Date End Date Kell Loza MD [address] [facility] [address] [place] [phone] PCP - General Geriatric Medicine 01/19/25 Physical Security Specialist Relationship Specialty [place] [address] [place] [address] [address] [place] [address] PCP - General Geriatric Medicine 01/19/25 Jordon Santiago DO [address] [place], [place] [id number] Surgeon General Surgery 01/28/25 Physical Security Specialist Relationship Specialty [place] [address] [place] [address] [address] [place] [address] PCP - General Geriatric Medicine 01/19/25 Jordon Santiago DO [address] [place], [place] [id number] Surgeon General Surgery 01/28/25 Physical Security Specialist Relationship Specialty Start Date End Date Kell Loza MD [address] [facility] [address] [place] [address] PCP - General Geriatric Medicine 01/19/25 Jordon Santiago DO [address] [place] [address] Surgeon General Surgery 01/28/25 Physical Security Specialist Relationship Specialty Start Date End Date Kell Loza MD [address] [place] [address] [place] [phone] PCP - General Geriatric Medicine 01/19/25 Jordon Santiago DO [address] [place] [address] Surgeon General Surgery 01/28/25 Team Status: Active [...] Referring Provider Active Start: January 15, 2025 Physical Security Specialist Relationship Specialty Start Date End Date Kell Loza MD [address] [place] [address] [place] [phone] PCP - General Geriatric Medicine 01/19/25 Jordon Santiago DO [address] [place] [address] Surgeon General Surgery 01/28/25 Physical Security Specialist Relationship Specialty Start Date End Date Kell Loza MD [address] [place] [address] [place] [address] PCP - General Geriatric Medicine 01/19/25 Jordon Santiago DO [address] [facility] [address] [place], [place] [id number] Surgeon General Surgery 01/28/25 Physical Security Specialist Relationship Specialty Start Date End Date Kell Loza MD [address] [place] [address] [place] [address] PCP - General Geriatric Medicine 01/19/25 Jordon Santiago DO [address] [place] [address] [address] [place] [address] Surgeon General Surgery 01/28/25 Physical Security Specialist Relationship Specialty Start Date End Date Kell Loza MD [address] [place] [address] [place] [address] PCP - General Geriatric Medicine 01/19/25 Jordon Santiago DO [address] [facility] [address] [place] [address] Surgeon General Surgery 01/28/25 Physical Security Specialist Relationship Specialty Start Date End Date Kell Loza MD [address] [place] [address] [place] [address] PCP - General Geriatric Medicine 01/19/25 Jordon Santiago DO [address] [place] [address] Surgeon General Surgery 01/28/25 Physical Security Specialist Relationship Specialty Start Date End Date Kell Loza MD [address] [place] [address] [place] [phone] PCP - General Geriatric Medicine 01/19/25 Jordon Santiago DO [address] [place] [address] [address] [place], [place] [id number] Surgeon General Surgery 01/28/25 Physical Security Specialist Relationship Specialty Start Date End Date Kell Loza MD [address] [place] [address] [place] [address] PCP - General Geriatric Medicine 01/19/25 Jordon Santiago DO [address] [place] [address] [address] [place], [place] [id number] Surgeon General Surgery 01/28/25 Physical Security Specialist Relationship Specialty Start Date End Date Kell Loza MD [address] [facility] [address] [place] [phone] PCP - General Geriatric Medicine 01/19/25 Jordon Santiago DO [address] [place] [address] [address] [place] [address] Surgeon General Surgery 01/28/25 Physical Security Specialist Relationship Specialty Start Date End Date Kell Loza MD [address] [place] [address] [place] [address] PCP - General Geriatric Medicine 01/19/25 Jordon Santiago DO [address] [place] [address] [address] [place] [address] Surgeon General Surgery 01/28/25 Physical Security Specialist Relationship Specialty Start Date End Date Kell Loza MD [address] [facility] [address] [place] [address] PCP - General Geriatric Medicine 01/19/25 Jordon Santiago DO [address] [place] [address] [address] [place], [place] [id number] Surgeon General Surgery 01/28/25 Physical Security Specialist Relationship Specialty Start Date End Date Kell Loza MD [address] [place] [address] [place] [phone] PCP - General Geriatric Medicine 01/19/25 Jordon Santiago DO [address] [place] [address] [address] [place] [address] Surgeon General Surgery 01/28/25 Physical Security Specialist Relationship Specialty Start Date End Date Kell Loza MD [address] [place] [address] [place] [address] PCP - General Geriatric Medicine 01/19/25 Jordon Santiago DO [address] [place] [address] [address] [place], [place] [id number] Surgeon General Surgery 01/28/25 Physical Security Specialist Relationship Specialty Start Date End Date Kell Loza MD [address] [place] [address] [place] [phone] PCP - General Geriatric Medicine 01/19/25 Jordon Santiago DO [address] [place] [address] [address] [place] [address] Surgeon General Surgery 01/28/25 Gaye Rodrigez RN Registered Nurse 05/11/25 Physical Security Specialist Relationship Specialty Start Date End Date Kell Loza MD [address] [place] [address] [place] [phone] PCP - General Geriatric Medicine 01/19/25 Jordon Santiago DO [address] [place] [address] Surgeon General Surgery 01/28/25 Gaye Rodrigez, RN Registered Nurse 05/11/25 Physical Security Specialist Relationship Specialty Start Date End Date Kell Loza MD [address] [place] [address] [place] [address] PCP - General Geriatric Medicine 01/19/25 Jordon Santiago DO [address] [place] [address] Surgeon General Surgery 01/28/25 Gaye Rodrigez, RN Registered Nurse 05/11/25 Physical Security Specialist Relationship Specialty Start Date End Date Kell Loza MD [address] [place] [address] [place] [phone] PCP - General Geriatric Medicine 01/19/25 Jordon Santiago DO [address] [place] [address] Surgeon General Surgery 01/28/25 Gaye Rodrigez, RN Registered Nurse 05/11/25 Physical Security Specialist Relationship Specialty Start Date End Date Kell Loza MD [address] [place] [address] [place] [phone] PCP - General Geriatric Medicine 01/19/25 Jordon Santiago DO [address] [place] [address] Surgeon General Surgery 01/28/25 Gaye Rodrigez, RN Registered Nurse 05/11/25 Physical Security Specialist Relationship Specialty Start Date End Date Kell Loza MD [address] [place] [address] [place] [address] PCP - General Geriatric Medicine 01/19/25 Jordon Santiago DO [address] [place] [address] Surgeon General Surgery 01/28/25 Gaye Rodrigez, RN Registered Nurse 05/11/25 Physical Security Specialist Relationship Specialty Start Date End Date Kell Loza MD [address] [place] [address] [place] [address] PCP - General Geriatric Medicine 01/19/25 Jordon Santiago DO [address] [place], [place] [phone] Surgeon General Surgery 01/28/25 Gaye Rodrigez, RN [...] July 08, 2025 End: July 08, 2025 Team Status: Inactive Member Role/Relationship Status Dates Dr. Edilberto Loza MD Primary Care Provider Active Start: July 17, 2025 End: July 17, 2025 Dr. Edilberto Loza MD Attending Provider Active Start: July 17, 2025 End: July 17, 2025 Dr. Edilberto Loza MD Referring Provider Active Start: July 17, 2025 End: July 17, 2025 Team Status: Active Member Role/Relationship Status Dates Dr. Edilberto Loza MD Primary Care Provider Active Start: July 23, 2025 Dr. Edilberto Loza MD Attending Provider Active Start: July 23, 2025 Dr. Edilberto Loza MD Referring Provider Active Start: July 23, 2025 Team Status: Active Member Role/Relationship Status Dates Dr. Edilberto Loza MD Primary Care Provider Active Start: July 27, 2025 Dr. Edilberto Loza MD Attending Provider Active Start: July 27, 2025 Dr. Edilberto Loza MD Referring Provider Active Start: July 27, 2025 Physical Security Specialist Relationship Specialty Start Date End Date Kell Loza MD [address] [facility] [address] [place] [phone] PCP - General Geriatric Medicine 01/19/25 Jordon Santiago DO [address] [place] [address] [address] [place] [address] Surgeon General Surgery 01/28/25 Gaye Rodrigez, RN Registered Nurse 05/11/25 Physical Security Specialist Relationship Specialty Start Date End Date Kell Loza MD [address] [facility] [address] [place] [phone] PCP - General Geriatric Medicine 01/19/25 WillyJordon fleming DO [address] [place] [address] [address] [place] [address] Surgeon General Surgery 01/28/25 Gaye Rodrigez RN Registered Nurse 05/11/25 Team Status: Active Member Role/Relationship Status Dates Dr. Edilberto Loza MD Primary care physician Active Team Status: Active Member Role/Relationship Status Dates Dr. Edilberto Loza MD Primary care physician Active Start: April 20, 2025 SRIRAM NORMAN Attending physician Active Start: April 20, 2025 SRIRAM NORMAN Referring Provider Active Start: April 20, 2025 Team Status: Inactive Member Role/Relationship Status Dates Dr. Edilberto Loza MD Primary care physician Active Start: April 30, 2025 End: April 30, 2025 Dr. Edilberto Loza MD Referring Provider Active Start: April 30, 2025 End: April 30, 2025 ASHLEY COLLADO Attending physician Active Start: April 30, 2025 End: April 30, 2025 Team Status: Inactive Member Role/Relationship Status Dates Dr. Edilberto Loza MD Primary care physician Active Start: July 08, 2025 End: July 08, 2025 ASHLEY COLLADO Attending physician Active Start: July 08, 2025 End: July 08, 2025 ASHLEY COLLADO Referring Provider Active S tart: July 08, 2025 End: July 08, 2025 Team Status: Inactive Member Role/Relationship Status Dates Dr. Edilberto Loza MD Primary care physician Active Start: July 17, 2025 End: July 17, 2025 Dr. Edilberto Loza MD Attending physician Active Start: July 17, 2025 End: July 17, 2025 Dr. Edilberto Loza MD Referring Provider Active Start: July 17, 2025 End: July 17, 2025 Team Status: Inactive Member Role/Relationship Status Dates Dr. Edilberto Loza MD Primary care physician Active Start: July 23, 2025 End: July 23, 2025 Dr. Edilberto Loza MD Attending physician Active Start: July 23, 2025 End: July 23, 2025 Dr. Edilberto Loza MD Referring Provider Active Start: July 23, 2025 End: July 23, 2025 Team Status: Inactive Member Role/Relationship Status Dates Dr. Edilberto Loza MD Primary care physician Active Start: July 27, 2025 End: July 27, 2025 Dr. Edilberto Loza MD Attending physician Active Start: July 27, 2025 End: July 27, 2025 Dr. Edilberto Loza MD Referring Provider Active Start: July 27, 2025 End: July 27, 2025 Team Status: Inactive Member Role/Relationship Status Dates Dr. Edilberto Loza MD Primary care physician Active Start: August 07, 2025 End: August 07, 2025 Bravo Luz MD Emergency Department Physician Active Start: August 07, 2025 End: August 07, 2025 Team Status: Inactive Member Role/Relationship Status Dates Dr. Edilberto Loza MD Primary care physician Active Start: August 09, 2025 End: August 09, 2025 Dr. Edilberto Loza MD Referring Provider Active Start: August 09, 2025 End: August 09, 2025 Dr. Agus Islas MD Attending physician Active Start: August 09, 2025 End: August 09, 2025 Team Status: Active Member Role/Relationship Status Dates Dr. Edilberto Loza MD Primary care physician Active Start: August 10, 2025 Dr. Edilberto Loza MD Attending physician Active Start: August 10, 2025 Team Status: Inactive Member Role/Relationship Status Dates Dr. Edilberto Loza MD Primary care physician Active Start: July 08, 2025 End: July 08, 2025 ASHLEY COLLADO Attending physician Active Start: July 08, 2025 End: July 08, 2025 ASHLEY COLLADO Referring Provider Active S tart: July 08, 2025 End: July 08, 2025 Team Status: Inactive Member Role/Relationship Status Dates Dr. Edilberto Loza MD Primary care physician Active Start: July 17, 2025 End: July 17, 2025 Dr. Edilberto Loza MD Attending physician Active Start: July 17, 2025 End: July 17, 2025 Dr. Edilberto Loza MD Referring Provider Active Start: July 17, 2025 End: July 17, 2025 Team Status: Inactive Member Role/Relationship Status Dates Dr. Edilberto Loza MD Primary care physician Active Start: July 23, 2025 End: July 23, 2025 Dr. Edilberto Loza MD Attending physician Active Start: July 23, 2025 End: July 23, 2025 Dr. Edilberto Loza MD Referring Provider Active Start: July 23, 2025 End: July 23, 2025 Team Status: Inactive Member Role/Relationship Status Dates Dr. Edilberto Loza MD Primary care physician Active Start: July 27, 2025 End: July 27, 2025 Dr. Edilberto Loza MD Attending physician Active Start: July 27, 2025 End: July 27, 2025 Dr. Edilberto Loza MD Referring Provider Active Start: July 27, 2025 End: July 27, 2025 Team Status: Inactive Member Role/Relationship Status Dates Dr. Edilberto Loza MD Primary care physician Active Start: August 07, 2025 End: August 07, 2025 Bravo Luz MD Attending physician Active Sta rt: August 07, 2025 End: August 07, 2025 Bravo Luz MD Emergency Department Physician Active Start: August 07, 2025 End: August 07, 2025 Team Status: Inactive Member Role/Relationship Status Dates Dr. Edilberto Loza MD Primary care physician Active Start: August 09, 2025 End: August 09, 2025 Dr. Edilberto Loza MD Referring Provider Active Start: August 09, 2025 End: August 09, 2025 Dr. Agus Islas MD Attending physician Active Start: August 09, 2025 End: August 09, 2025 Team Status: Inactive Member Role/Relationship Status Dates Dr. Edilberto Loza MD Primary care physician Active Start: August 10, 2025 End: August 10, 2025 Dr. Edilberto Loza MD Attending physician Active Start: August 10, 2025 End: August 10, 2025 Team Status: Inactive Member Role/Relationship Status Dates Dr. Edilberto Loza MD Primary care physician Active Start: August 17, 2025 End: August 17, 2025 Dr. Agus Islas MD Attending physician Active Start: August 17, 2025 End: August 17, 2025 Dr. Agus Islas MD Referring Provider Active Start: August 17, 2025 End: August 17, 2025 Team Status: Active Member Role/Relationship Status Dates Dr. Edilberto Loza MD Primary care physician Active Start: August 17, 2025 Dr. Agus Islas MD Attending physician Active Start: August 17, 2025 Dr. Agus Islas MD Referring Provider Active Start: August 17, 2025 Dr. Agus Islas MD Nurse Practitioner Active Start: August 17, 2025 Team Status: Active Member Role/Relationship Status Dates Dr. Edilberto Loza MD Primary care physician Active Start: September 02, 2025 Dr. Edilberto Loza MD Attending physician Active Start: September 02, 2025 Reason for Visit (unrecogniz ed section and content) Reason Comments Follow-up Nsmwl 3` Reason Comments Follow-up [facility]MWL Reason Comments Follow-up Nsmwl 5 Reason Comments Surgical Consult NEW Specialty Diagnoses / Procedures Referred By Contac t Referred To Contact Bariatrics Diagnoses Morbid (severe) obesity due to excess calories (HCC) Procedures eval & treat Kell Loza MD [address] [address] Phone: tel: fax: [facility] [place] [address] [place] [phone] Phone: tel: fax: Referral ID Status Reason Start Date Expiration Date V isits Requested Visits Authorized [id number] Pending Review 01/19/2025 01/19/2026 1 1 Reason [...] (HCC) Hypothyroidism, unspecified type Pre-op testing Procedures IN OFFICE/OUTPATIENT NEW HIGH MDM 60 MINUTES Trish Bhatia APRN - MECHANICAL INSULATOR [address] [place] [address] Phone: tel: fax: [facility] [place] [address] [place] [address] Phone: tel: fax: Referral ID Status Reason Start Date Expiration Date V isits Requested Visits Authorized [id number] Closed Specialty Services Required 01/28/2025 01/28/2026 1 1 Reason Comments Nutrition Counseling BNA Initial Assessm ent Reason Comments Psychiatric Evaluation Reason Comments Psychiatric Evaluation testing Reason Comments Results Reason Comments Weight Management D/E 2 OF 3 Reason Onset Date Comments Other 03/11/2025 UGI scheduling c oncern Reason Comments Follow-up Reason Comments Cardiac Clearance Specialty Diagnoses / Procedures Referred By Contalina t Referred To Contact Cardiology Diagnoses Gastroesophageal reflux disease without esophagitis Morbid obesity with BMI of 40.0-44.9, adult (HCC) Hypothyroidism, unspecified type Pre-op testing Procedures IN OFFICE/OUTPATIENT NEW HIGH MDM 60 MINUTES Trish Bhatia, DIETICIAN - MECHANICAL INSULATOR [address] [facility] [address] [place] [address] Phone: tel: fax: [facility] [address] [place] [address] Phone: tel: fax: Referral ID Status Reason Start Date Expiration Date V isits Requested Visits Authorized [id number] Closed Specialty Services Required 01/28/2025 01/28/2026 1 1 Reason Comments Weight Management D/E FINAL 3 OF 3 Reason Onset Date Comments Surgery Scheduling 05/11/2025 MBS SURGERY S CHEDULING Reason Comments Weight Management FPOV Reason Comments Bariatrics Post Op Follow-up 1wk Reason Onset Date Comments Abnormal Lab 07/23/2025 Outside Labs [facility] 07-08-25:Elevated AST: 42Elevated ALT: 66Elevated B12: 1798Elevated iron: 41 Reason Comments Bariatrics Post Op Follow-up 1m Scheduled Active and Recently Administ ered Medications [...] Angel RN)2041 (New Bag - Provider: Poornima Campbell, JIGNA)2103 (Stopped - Provider: Poornima Campbell RN) 0325 (New Bag - Provider: Poornima Campbell RN)0338 (Stopped - Provider: Poornima Campbell RN)0842 (New Bag - Provider: Saray Angel RN)0857 (Stopped - Provider: Saray Angel RN)1500 (Canceled [...] at 200 mL/hr, Administer over 30 Minutes, Architectural Renderer to O.R., On Sat06/30/25 at 0545, For [...] 0601 (Given - Provider: Ada Harrell RN) citalopram (CeleXA) tablet 20 mg 20 mg, Oral, Daily, First dose on Taty 07/01/25 at 0900 1139 (Given - Provid er: Saray Angel RN) diatrizoate meglumine-sodium (Gastrografin) 66-10 % solution 60 mL (COMPLETED) 60 mL, Oral, Once, On Taty 07/01/25 at 0815, For 1 dose, Administered at the time of the exam. 0801 (Given - Provid er: Dee Dee Perez, RT (R) - Comment: VICENTE) enoxaparin (Lovenox) syringe 30 mg 30 mg, SubCUTAneous, Every 12 hours, First dose on Sat06/30/25 at 2200, Phase II/On Unit, Indication of Use: Prophylaxis-DVT/PE 2040 (Given - Provider: Poornima Campbell RN) 0842 (Given - Provider: Saray Angel RN) famotidine (Pepcid) tablet 20 mg (COMPLETED)(Linked Group 1) 20 mg, Oral, Once, On Sat06/30/25 at 0545, For 1 dose, Preprocedure, IV or ORAL 06 (Given - Provider: Ada Harrell RN) heparin injection 5,000 Units (COMPLETED) 5,000 Units, SubCUTAneous, Once, On Sat06/30/25 at 0545, For 1 dose, Preprocedure 0601 (Given - Provider: Ada Harrell RN) levothyroxine (Synthroid, Levoxyl) tablet 125 mcg [...] 10 mEq/hr 1651 (New Bag - Provider: Saray Angel RN)2040 (Stopped - Provider: Poornima Campbell, [...] II/On Unit 1138 (Not Given - Provider: aSray Angel RN - Reason: IV Fluids Infusing)2103 [...] Campbell RN)0626 (Rate/Dose Verify - Provider: Poornima Campbell RN)0630 (New Bag - Provider: Poornima Campbell [...] sedation for opioid reversal - MUST notify marketing communications specialist provider immediately after first dose, may give [...] 1506 (See Alternative - Provider: Latasha Mcneal RN)204 (Given - Provider: Poornima Campbell RN) 0630 [...] administering. 1506 (Given - Provider: Latasha Mcneal RN)2046 (See Alternative - Provider: Poornima Campbell RN) [...] II/On Unit 1451 (Given - Provider: Saray Angel, JIGNA) oxyCODONE (Roxicodone) immediate release tablet 5 mg(Linked Group 3) 5 mg, Oral, Every 4 hours PRN, moderate pain (4-6), Starting on Sat06/30/25 at 1511 0630 (See Alternativ e - Provider: Poornima Campbell RN)1139 (Given - Provider: Saray Angel RN) promethazine (Phenergan) injection 12.5 mg(Linked Group 4) 12.5 mg, IntraMUSCular, Every 6 hours PRN, nausea, vomiting, Starting on Sat06/30/25 at 1931, Only to be given as IM injection., On hold since Sat07/01/2025 at 0707 until manually unheld 0707 (Held by [facility] - Provider: Jordon Santiago, DO - Reason: Post-procedure)1718 (Unheld by provider - Provider: Automatic Discharge Provider) promethazine (Phenergan) suppository 12.5 mg(Linked Group 4) 12.5 mg, Rectal, Every 6 hours PRN, nausea, vomiting, Starting on Sat06/30/25 at 1931, On hold since Sat07/01/2025 at 0707 until manually unheld 0707 (Held by [facility] - Provider: Jordon Santiago, DO - Reason: Post-procedure)1718 (Unheld by provider - Provider: Automatic Discharge Provider) promethazine (Phenergan) tablet 12.5 mg(Linked Group 4) 12.5 mg, Oral, Every 6 hours PRN, nausea, vomiting, Starting on Sat06/30/25 at 1931, On hold since Sat07/01/2025 at 0707 until manually unheld 0707 (Held by [facility] - Provider: Jordon Santiago, DO - Reason: Post-procedure)1718 (Unheld by provider - Provider: Automatic Discharge Provider) sodium chloride 0.9 % bolus 500 mL (CANCELED) 500 mL, IntraVENous, at 1,000 mL/hr, Administer over 0.5 Hours, PRN, Anti-nausea, Starting on Sat06/30/25 at 1000, Recovery (only), Indications: Anti-nausea 1036 (New Bag - Provider: Melanie Reis, JIGNA)1106 (Stopped - Provider: Saray Angel RN) sodium [...] BE BASED ON THE PRIMARY CLINICAL RECORDS. [employer] [facility]. provides no warranty or guarantee of the accuracy or completeness of information in this document.
--- NOTE | 2025-10-01 06:35 | PCM.PRE.AN2 ---
ASA Classification* ASA Classification ASA Classification: 2 Assessment & Plan Anesthesia* Anesthesia Assessment Anesthesia Assessment: Discussed sedation and/or anesthesia options, risks, benefits, and alternatives with patient/parents/legal guardian/POA. Questions invited. The patient/parents/legal guardian/POA seems to understand and agrees to proceed with anesthesia plan. Reviewed the physical assessment, medical history, allergy history and patient home medications list prior to surgery/procedure/anesthetic and documented any changes. Performed airway and anesthesia risk assessments. Anesthesia Type Anesthesia Type: General Anesthesia Focused Assessment* Airway Assessment Mouth opens: >3 cm Mallampati Score: II Labs Anesthesia Preop lab: CBC WBC, (4.4-11.0) 5.8 K/mm3 08/07/25, 07:55 RBC, (4.2-5.4) 4.18 M/mm3 L 08/07/25, 07:55 Hgb, (12.0-15.0) 12.5 g/dL 08/07/25, 07:55 Hct, (37-47) 38.1 % 08/07/25, 07:55 Plt Count, (150-450) 163 K/mm3 08/07/25, 07:55 CHEMISTRY Potassium, (3.3-5.1) 4.4 mmol/L 09/02/25, 10:40 Sodium, (133-145) 142 mmol/L 09/02/25, 10:40 Magnesium, (1.5-2.2) 1.9 mg/dL 07/08/25, 09:46 BUN, (4-19) 15 mg/dL 09/02/25, 10:40 Creatinine, (0.70-1.20) 0.61 mg/dL L 09/02/25, 10:40 Glucose, (70-99) 97 mg/dL 09/02/25, 10:40 TSH, (0.300-4.200) 3.310 uIU/mL 07/08/25, 09:51 COAG PT, (11.7-14.9) 12.4 SECONDS 01/20/18, 17:40 Pre-Assessment Diagnosis/Proposed Procedure Planned Operative Procedure(s): (R) Stereo wire loc Breast, Lumpectomy Anesthesia History Anesthesia History - area development manager: Anesthesia History - area development manager Hx Hospitalization Yes: [facility] 06/30/25 09/29/25 15:07 Any Problems With Anesthesia No 09/29/25 15:07 Cholinesterase deficiency No 09/29/25 15:07 You/Your Family Experience No 09/29/25 15:07 fever (hyperthermia) with Relationship Recent Exposure to Contagious Disease Does patient have nerve No 09/29/25 15:07 stimulator Patient instructed to have device shut off --Does patient have Pacemaker or ICD? When Was Last Pacemaker Check QUESTION #4 FULL TEXT: You/Your Family Experience fever (hyperthermia) with Anesthesia Last Oral Intake Last Oral intake: Last Oral Intake NPO since Meds taken in AM with sips of water? Meds patient instructed to take am of surgery PONV PONV - area development manager: PONV - area development manager Female Yes 09/29/25 15:07 HX of Motion Sickness Yes 09/29/25 15:07 HX of N/V After Surgery No 09/29/25 15:07 Non-Smoker Yes 09/29/25 15:07 Duration of Surgery greater No 09/29/25 15:07 than 60 minutes Number of Risk Factors 3 09/29/25 15:07 PONV Score Moderate Risk 09/29/25 15:07 Height & Weight Height & Weight: Anesthesia: Height & Weight Height 5 ft 5 in 09/14/25 14:36 Respiratory Assessment Respiratory Assessment - area development manager: Respiratory Tract Infection Hx - area development manager Hx Respiratory Tract Infection No 09/29/25 15:07 STOP Sleep Apnea STOP Sleep Apnea - area development manager: STOP Sleep Apnea - area development manager Hx Hypertension No 09/29/25 15:07 Hx Sleep Apnea No 09/29/25 15:07 CPAP BIPAP Do you snore loudly (louder No 09/29/25 15:07 than talking or can be heard Do you often feel tired/ No 09/29/25 15:07 fatigued/ sleepy during daytime? Has anyone observed you stop No 09/29/25 15:07 breathing during sleep? STOP Results Negative 09/29/25 15:07 QUESTION #5 FULL TEXT : Do you snore loudly (louder than talking or can be heard through closed doors)? Tobacco Use History Tobacco Use History - area development manager: Tobacco Use History - area development manager Tobacco Use Smoking Status Former smoker 09/29/25 15:07 Hx Tobacco Use Yes: RECENTLY QUIT ON 09/29/25 15:07 CHANTIX Years Smoking Packs Smoked per Day Smoking Cessation Date was Yes - quit smoking within 15 09/29/25 15:07 within the last 15 years years Hx Smoking Cessation Date 11/11/21 09/29/25 15:07 Hx Smoking Cessation Counseling Hematologic Medial History Hematologic Hx - area development manager: Hematologic Medical Hx - estate manager Hx of Blood Transfusion No 09/29/25 15:07 Hx of Transfusion in last 3 No 09/29/25 15:07 Months Date of Last Transfusion (if within last 3 months) Ever experience any problems No 09/29/25 15:07 with transfusion(s)? Specify any problems Hx of Preganancy in last 3 N/A 09/29/25 15:07 Months Nurse Filling Out Transfusion NBUCHER 09/29/25 15:07 & Questions: Date: 09/29/25 09/29/25 15:07 Time: 15:09 09/29/25 15:07 Patient unable to answer at this time (ie. confused, unrespo /Reproduction History /Reproductive History - area development manager: /Reproductive Hx- area development manager Hx Now No 09/29/25 15:07 Gestational Age (in weeks): EDC: Hx Hx Para Hx Section SAB No 09/29/25 15:07 Does the father of the baby or his family experience fever w Father of the baby Malignant Hypertension history comment Active Medications Active Medications: Current Medications Generic Name Dose Route Start Last Admin Trade Name Freq PRN Reason Stop Dose Admin Lactated Ringer's 1,000 mls @ 15 mls/hr 10/01/25 06:30 IV .Q48H MATIAS PFSH Medical History Wears glasses Thyroid disease Heartburn Gastric reflux Former smoker Leg cramps Abnormal mammogram of right breast Abnormal ultrasound of breast history of thoracic fracture Acid indigestion Hyperthyroidism Home Medications ?Medication ?Instructions ?Recorded ?Last Taken ?Type biotin 5 mg capsule 5 mg PO DAILY 08/07/25 08/04/25 History black cohosh 200 mg capsule 200 mg PO DAILY 08/07/25 08/04/25 History calcium citrate 500 mg PO TID 08/07/25 08/04/25 History cholecalciferol (vitamin D3) 50 100 mcg PO DAILY 08/07/25 08/04/25 History mcg (2,000 unit) capsule cyanocobalamin (vitamin B-12) 5,000 mcg PO DAILY 08/07/25 08/04/25 History 5,000 mcg capsule levothyroxine 125 mcg tablet 125 mcg PO DAILY 08/07/25 08/07/25 History multivitamin (Daily Multi-Vitamin 1 tab PO DAILY 08/07/25 08/04/25 History tablet) pantoprazole 40 mg tablet,delayed 40 mg PO DAILY 08/07/25 08/06/25 History release thiamine mononitrate (vit B1) 50 50 mg PO DAILY 08/07/25 08/04/25 History mg tablet vitamin B complex (Vitamins B 1 cap PO DAILY 08/07/25 08/04/25 History Complex capsule) Allergy/AdvReac Type Severity Reaction Status Date / Time No Known Allergies Allergy Verified 09/29/25 15:05 Surgical History Gastric bypass status for obesity (06/30/25) History of tubal ligation History of partial hysterectomy History of cholecystectomy Social History Smoking Status: Former smoker Tobacco: How many years used: 32 second hand exposure: Yes quit status: considering quitting alcohol intake: current alcohol intake frequency: 0-2 drinks per day Alcohol type: hard liquor substance use type: does not use what type of physical activity do you participate in: none Review of Systems (Anesthesia) ROS Narrative System reviewed and no additional complaints, except as documented.
[2025-10-01] MEDS: Lactated Ringers 1,000 ML 15 ML IV (06:49)
--- NOTE | 2025-10-01 07:15 | BI_ITS ---
EXAM: BREAST BIOPSY SPECIMEN 10/01/2025 CLINICAL HISTORY: F, Age 59 y/o, breast specimen. TECHNIQUE: Procedure Code: BIB Modality: MG Procedure: BREAST BIOPSY SPECIMEN COMPARISON: Prior exam(s) dated prior mammogram dated August 17, 2025.. FINDINGS: TISSUE DENSITY: The breasts are extremely dense, which lowers the sensitivity of mammography The breast specimen contains the nodule as well as the tissue clip marker in the needle localization wire. BI/Breast Biopsy Specimen IMPRESSION: OVERALL FINAL ASSESSMENT: BIRADS 6: Known Biopsy-Proven Malignancy. RECOMMENDATION: Awaiting the pathology report. Additional Recommendation none A letter with findings and recommendations will be mailed to the patient. Reading Location: [place] [address]
--- NOTE | 2025-10-01 08:18 | PCM.HP.STD ---
HPI - General General Date of Admission: 10/01/25 Date of Service: 10/01/25 Chief Complaint: Abnormal right breast mammogram and ultrasound HPI Narrative JAIME JENKINS, is a 59 F who presents for elective wire localized right breast excisional biopsy/lumpectomy. Patient recently underwent biopsy of the potentially suspicious lesion. This came back as an intraductal papilloma along with a fibroadenoma. I offered her reexcision. We discussed details of the planned procedure and she wishes to proceed. [facility] Medical History Wears glasses Thyroid disease Heartburn Gastric reflux Former smoker Leg cramps Abnormal mammogram of right breast Abnormal ultrasound of breast history of thoracic fracture Acid indigestion Hyperthyroidism Home Medications ?Medication ?Instructions ?Recorded ?Last Taken ?Type biotin 5 mg capsule 5 mg PO DAILY 08/07/25 08/04/25 History black cohosh 200 mg capsule 200 mg PO DAILY 08/07/25 08/04/25 History calcium citrate 500 mg PO TID 08/07/25 08/04/25 History cholecalciferol (vitamin D3) 50 100 mcg PO DAILY 08/07/25 08/04/25 History mcg (2,000 unit) capsule cyanocobalamin (vitamin B-12) 5,000 mcg PO DAILY 08/07/25 08/04/25 History 5,000 mcg capsule levothyroxine 125 mcg tablet 125 mcg PO DAILY 08/07/25 08/07/25 History multivitamin (Daily Multi-Vitamin 1 tab PO DAILY 08/07/25 08/04/25 History tablet) pantoprazole 40 mg tablet,delayed 40 mg PO DAILY 08/07/25 08/06/25 History release thiamine mononitrate (vit B1) 50 50 mg PO DAILY 08/07/25 08/04/25 History mg tablet vitamin B complex (Vitamins B 1 cap PO DAILY 08/07/25 08/04/25 History Complex capsule) Allergy/AdvReac Type Severity Reaction Status Date / Time No Known Allergies Allergy Verified 10/01/25 06:45 Surgical History Gastric bypass status for obesity (06/30/25) History of tubal ligation History of partial hysterectomy History of cholecystectomy Social History Smoking Status: Former smoker Tobacco: How many years used: 32 second hand exposure: Yes quit status: considering quitting alcohol intake: current alcohol intake frequency: 0-2 drinks per day Alcohol type: hard liquor substance use type: does not use what type of physical activity do you participate in: none Vital Signs Vital Signs Vital Signs: 10/01/25 06:45 10/01/25 06:45 10/01/25 06:45 Temperature 97.2 F L Temperature Source Temporal Pulse Rate 70 Respiratory Rate 18 Respiratory Pattern Normal Blood Pressure 119/67 Blood Pressure Mean 84 Blood Pressure Source Monitor Blood Pressure Position Semi-Fowlers Blood Pressure Location Right Arm Baseline BP 119/67 Pulse Ox 99 Oxygen Delivery Method Room Air Weight Weight: 209 lb 14.081 oz Body Mass Index (BMI) 34.9 Physical Exam Const alert, oriented x3 and no apparent distress Assessment & Plan Assessment/Plan (1) Abnormal mammogram of right breast: (2) Abnormal ultrasound of breast: PLAN: Plan Right breast wire localized lumpectomy planned for today. Details of the procedure including risk benefits and alternatives discussed. Surgery will begin shortly.
--- NOTE | 2025-10-01 08:24 | OP.PCM_ITS ---
Procedures Integumentary [id number]: [id number] Perq dev breast 1st [facility] Operative Report (Standard) Operative Information Date of Procedure: 10/01/25 Pre-Operative Diagnosis: Right breast intraductal papilloma Post-Operative Diagnosis: Same Surgery/Procedure Performed: Right breast wire localization placement store gift wrap associate: No Type of Anesthesia: Local RN Documented Start/Stop Times: Operation Date: 10/01/25 08:30 Case Time Into Pre-Op 10/01/25 06:23 Procedure Start Time: 07:50 Procedure Stop Time: 08:05 Select all DRAINS/GRAFTS/IMPLANTS that apply: Implanted device Implanted device details: Localization wire Special Medications: None Estimated Blood Loss: Minimal Specimen collected: No Description of surgery: The patient is a 59-year-old female who underwent a recent right breast mammogram and ultrasound showing an area of abnormality. An ultrasound-guided biopsy was performed. An intraductal papilloma was identified. We discussed doing an excisional biopsy/lumpectomy. She wished to proceed. Patient was brought to the mammography suite today following informed consent for the wire localization portion. The patient was placed prone on the mammotome/stereotactic table. The right breast was suspended through the aperture and the table. Temporary Office Assistant views were obtained until the lesion was identified. Once this identified, stereotactic views were then obtained. Based on these views the previous clip was targeted upon. The skin of the breast was then prepped and draped in the usual manner. Local anesthetic was infiltrated. The needle and wire were then inserted. Once inserted, the needle and wire appeared to be satisfactory position. The needle was then extracted while the wire was advanced. Postprocedure images showed the wire to be in the desired location. She was then taken from the table and returned to preoperative ho ing area and prepared for surgery. Surgical Findings: See procedure note Complications Complications: No Admit VTE Documentation VTE Present on Admission: No VTE Mechan Device Prophylaxis: None VTE Pharm Prophylaxis ordered?: No Reason prophylaxis not ordered: Treatment Not Indicated
--- NOTE | 2025-10-01 08:30 | BREAST_PTH ---
PATIENT: JAIME JENKINS LOC: [facility] [place] U#:[id number] AGE/SX: 59/F ROOM: RE10/01/[address]: Dr. Agus Islas MD : [id number] BED: DIS: 10/01/2025 SPEC #: [id number] RECD: 10/01/25 09:24 STATUS: DAI DEANNA #: [id number] AV: 10/01/25 08:[address]: Agus Islas DEPT: SURGICAL PATHOLOGY RECD BY: Chris Mejia ENTERED: 10/01/25 10:05 SP TYPE: BREAST OTHR DR: Dr. Edilberto Loza MD Tissues: A - Right breast, NOS Procedures: Surgery Specimen Level IV HEADER OPERATION: Stereo wire localization, breast lumpectomy PRE-OP DIAGNOSIS: Abnormal mammogram of right breast, abnormal ultrasound of breast TISSUE SUBMITTED: A- Right breast mass *long stitch - lateral, short stitch - superior* MICROSCOPIC DIAGNOSIS A. Breast, right, stereotactic wire localization lumpectomy: * Sclerosing intraductal papilloma * Microcalcifications * Histologic changes consistent with biopsy site * Surgical resection margins, negative for neoplasm MICROSCOPIC DESCRIPTION Slides are reviewed. GROSS DESCRIPTION A. Received fresh labeled with the patient's name and date of . Designated as right breast mass is a 8.0 x 7.5 x 4.2 cm lumpectomy with an exposed localization wire on the anterior aspect. There is a short suture designated as superior and a long suture designated as lateral. Skin is present. The specimen is inked as follows: Superior: RedInferior: BlueMedial: YellowLateral: OrangeAnterior, surrounding skin: GreenPosterior: Black The specimen is serially sectioned from posterior to anterior (into 8 slices) revealing a 1.0 x 0.6 x 0.6 cm rose-white, indurated, somewhat circumscribed mass spanning slices #2-#3. The mass is located the following distances from each margin: Anterior: >5.0 cmInferior: 1.0 cmMedial: >2.0 cmLateral: >2.0 cmPosterior: 0.3 cmSuperior: 0.5 cm Remainder of the cut surfaces are fibrofatty (90% fatty, 10% fibrotic) with focal, patchy apparent fat necrosis, predominantly in slices #4-#5. Review of postoperative imaging confirms the presence of a localization wire and ribbon biopsy clip. Carboy Filler sections are submitted, sequentially from slice #1 (posterior) to slice #8 (anterior), as follows: A1: Slice #1, posterior, perpendicular (black)A2-A3: Slice #2, mass to posterior/inferior (black/blue)A4: Slice #3, mass to posterior (black)A5: Slice #3, fibrosis adjacent to mass, superior margin (red)A6: Slice #4, fat necrosis to inferior (blue)A7: Slice #4 fibrosis to medial/inferior/posterior (blue/yellow/black)A8: Slice #5, fat necrosis to inferior (blue)A9: Slice #5, lateral/medial margins (orange/yellow)A10: Slice #8, anterior skin, perpendicular, including inferior/superior (green/blue/green Cold ischemic time: 11 minutesFormalin fixation time: 58 hours, 3 minutes [place] [id number]
[2025-10-01] MEDS: Midazolam 2 MG/2 ML Syringe IV (08:32)
[2025-10-01] MEDS: Lactated Ringers 1,000 ML 1000 ML IV (08:32)
[2025-10-01] MEDS: Lidocaine 1% (5 ml sdv) 5 ML Vial 4 ML IV (08:38)
[2025-10-01] MEDS: fentaNYL 100 MCG/2 ML Ampul IV (08:38)
[2025-10-01] MEDS: Bupiv/Epi 0.25% 30 ML Vial (09:27)
--- NOTE | 2025-10-01 09:45 | PCM.POST.ANE ---
Anesthesia: Postop Eval I Current Vital Signs Temperature: 97.5 F Pulse Rate: 79 Blood Pressure: 124/102 Respiratory Rate: 20 Pulse Ox: 98 Oxygen Delivery Method: Room Air Assessment Airway patent: Yes Spontaneous unlabored respirations: Yes Mental status: Awake and Calm nausea: No Vomiting: No Anesthesia Complication: No Fluid Hydration Crystalloid volume administer (ml): 900 Total IV fluid infused: 900 Progress Note Anesthesia document: Postop Eval 1 completed: Yes
--- NOTE | 2025-10-01 09:46 | OP.PCM_ITS ---
Procedures Integumentary [id number]: [id number] Partial mastectomy Operative Report (Standard) Operative Information Date of Procedure: 10/01/25 Pre-Operative Diagnosis: Right breast intraductal papilloma Post-Operative Diagnosis: Same Surgery/Procedure Performed: Right breast wire localized lumpectomy otolaryngology physician: Yes Steeping Press Operator: Tatiana Macias Tasks completed by assistant finance director: Closing and Retracting Additional botany laboratory assistant?: No Type of Anesthesia: General and Local RN Documented Start/Stop Times: Operation Date: 10/01/25 08:30 Case Time Into Pre-Op 10/01/25 06:23 Out of Pre-Op 10/01/25 08:00 Anesthesia Start 10/01/25 08:32 Into Room 10/01/25 08:32 Procedure Start 10/01/25 08:57 Procedure End 10/01/25 09:30 Anesthesia End 10/01/25 09:39 Out of Room 10/01/25 09:39 Into Recovery 10/01/25 09:41 Procedure Start Time: 08:57 Procedure Stop Time: 09:30 Select all DRAINS/GRAFTS/IMPLANTS that apply: None Special Medications: None Estimated Blood Loss: Minimal Specimen collected: Yes Description of specimen(s) removed: Right breast tissue containing previous biopsy clip and localization wire Description of surgery: The patient is a 59-year-old female who recently underwent mammogram and ultrasound which revealed an abnormality in the right breast. An ultrasound- guided core biopsy was performed. This came back as consistent with a fibroadenoma as well as an intraductal papilloma. We discussed and offered excisional biopsy/lumpectomy she wished to proceed. We discussed details of the planned procedure including risks benefits and alternatives and she wished to proceed. She was brought to the operating today following informed consent. Earlier in the day a stereotactic wire was placed to localize the lesion. She was brought to the operating room. She is placed supine the operative table with arms outstretched and arm boards. Anesthesia was induced. Once adequately sedated the right breast and chest regions were prepped and draped in the usual sterile manner. A small ellipse incision was made around the entry point of the guidewire after injecting local anesthetic. Incision was made using #15 blade. Bovie electrocautery was then used dissect down through subtendinous tissues down to the level of the tip of the wire. Once beyond the tip of the wire the lesion was removed along with the wire and marking clip. A specimen radiograph was performed and clearly showed the clip in the specimen. Hemostasis was e xcellent. The lumpectomy site was copiously irrigated. Again hemostasis was documented as excellent. The incision was then closed using 3-0 Vicryl in the subdermal layer. 4-0 Vicryl was run the skin. Skin glue was then applied as dressing. Fluffs and a postoperative bra was also applied. She was awakened anesthesia and taken to recovery in good condition Surgical Findings: See procedure note Complications Complications: No Admit VTE Documentation VTE Present on Admission: No VTE Mechan Device Prophylaxis: SCD's VTE Pharm Prophylaxis ordered?: No Reason prophylaxis not ordered: Treatment Not Indicated
--- NOTE | 2025-10-01 10:31 | DCINST_ITS ---
Discharge Instructions Diet Discharge Diet: Light diet - advance as tolerated Activity Discharge Activity: Return to Normal Activity and May Shower May shower in (days): 1 Ice area for (Minutes): 30 Dressing / Incision Call your doctor if your incision/area has: Continuous Slow Oozing, Sudden Increased Bleeding, Increased Pain/ Swelling, Increased Redness, Foul Smelling Discharge and Swelling at the incision site Call your doctor if you observe: Fever of 101 or Higher Cleanse incision/area with: Soap & Water Follow Up Care Please Follow Up With: Agus Islas MD When: 2 weeks. Please call office to schedule appointment Test Results: Test results from this visit will be discussed in further detail at your follow- up appointment, if applicable. Discharge Plan Admission Primary Reason for Your Visit: Right breast lumpectomy Attending Provider: Agus Islas Primary Care Provider: Edilberto Loza Chi Instructions Print Language: Turkmen Discharge Orders/Prescriptions Prescriptions: New oxycodone 5 mg tablet 5 mg PO Q8H PRN (Reason: pain) 3 Days Qty: 10 0RF Continued pantoprazole 40 mg tablet,delayed release (DR/EC) 40 mg PO DAILY levothyroxine 125 mcg tablet 125 mcg PO DAILY multivitamin [Daily Multi-Vitamin] Tablet 1 tab PO DAILY calcium citrate 250 mg calcium tablet 500 mg PO TID thiamine mononitrate (vit B1) 50 mg tablet 50 mg PO DAILY cyanocobalamin (vitamin B-12) 5,000 mcg capsule 5,000 mcg PO DAILY cholecalciferol (vitamin D3) 50 mcg (2,000 unit) capsule 100 mcg PO DAILY black cohosh 200 mg capsule 200 mg PO DAILY biotin 5 mg capsule 5 mg PO DAILY vitamin B complex [Vitamins B Complex] Capsule 1 cap PO DAILY Referrals / Follow Up: Edilberto Loza Chi, MD [Primary Care Provider, Geriatrics] Disposition Disposition (needs filled in before D/C Order can be placed): Home, Self Care
--- NOTE | 2025-10-01 12:17 | POSTOPAN2_ITS ---
Anesthesia Postop Eval I Sum Postop Eval Completion status Anesthesia document: Postop Eval 1 completed: Yes Anesthesia Postop Eval I Summary Anesthesia Postop Eval I Summary: Anesthesia Postop Eval I: Assessment Summary Airway patent Yes 10/01/25 09:46 LABOR SERVICE REPRESENTATIVE.[email or web address] Spontaneous unlabored Yes 10/01/25 09:46 LABOR SERVICE REPRESENTATIVE.[email or web address] respirations Mental status Awake,Calm 10/01/25 09:46 LABOR SERVICE REPRESENTATIVE.[email or web address] nausea No 10/01/25 09:46 LABOR SERVICE REPRESENTATIVE.[email or web address] Vomiting No 10/01/25 09:46 LABOR SERVICE REPRESENTATIVE.[email or web address] Anesthesia Postop Eval I: Fluid Summary Crystalloid volume administer 900 10/01/25 09:46 LABOR SERVICE REPRESENTATIVE.[email or web address] (ml) Colloids volume administered ( ml) Blood Product volume administered (ml) Total IV fluid infused 900 10/01/25 09:46 LABOR SERVICE REPRESENTATIVE.[email or web address] Anesthesia Postop Eval I: Summary Notes Anesthesia Complication No 10/01/25 09:46 LABOR SERVICE REPRESENTATIVE.[email or web address] Anesthesia Complication Comment: Post-operative progress note Anesthesia: Postop Eval II Evaluation Mental status: Awake Pain Level: 0 nausea: No Vomiting: No
--- NOTE | 2025-10-01 12:17 | PCM.POSTANE2 ---
Anesthesia Postop Eval I Sum Postop Eval Completion status Anesthesia document: Postop Eval 1 completed: Yes Anesthesia Postop Eval I Summary Anesthesia Postop Eval I Summary: Anesthesia Postop Eval I: Assessment Summary Airway patent Yes 10/01/25 09:46 FOREIGN LANGUAGES [email or web address] Spontaneous unlabored Yes 10/01/25 09:46 FOREIGN LANGUAGES PROFESSOR.[email or web address] respirations Mental status Awake,Calm 10/01/25 09:46 FOREIGN LANGUAGES PROFESSOR.[email or web address] nausea No 10/01/25 09:46 FOREIGN LANGUAGES PROFESSOR.[email or web address] Vomiting No 10/01/25 09:46 FOREIGN LANGUAGES PROFESSOR.[email or web address] Anesthesia Postop Eval I: Fluid Summary Crystalloid volume administer 900 10/01/25 09:46 FOREIGN LANGUAGES [email or web address].[email or web address] (ml) Colloids volume administered ( ml) Blood Product volume administered (ml) Total IV fluid infused 900 10/01/25 09:46 FOREIGN LANGUAGES PROFESSOR.[email or web address] Anesthesia Postop Eval I: Summary Notes Anesthesia Complication No 10/01/25 09:46 FOREIGN LANGUAGES PROFESSOR.[email or web address] Anesthesia Complication Comment: Post-operative progress note Anesthesia: Postop Eval II Evaluation Mental status: Awake Pain Level: 0 nausea: No Vomiting: No
== END 2025-10-01 11:20 | disposition home or self-care (01) ==
LOC: SDC 06:19 → AC 06:21
PROVIDERS: PCP Family Medicine Geriatric Medicine; Referring Provider Surgery; Visit Provider Surgery
PROC: (CPT 19301; principal; 2025-10-01 08:15)
DX: D24.1 Benign neoplasm of right breast (principal); Z87.891 Personal history of nicotine dependence; Z90.710 Acquired absence of both cervix and uterus; R92.8 Other abnormal and inconclusive findings on diagnostic imaging of breast; K21.9 Gastro-esophageal reflux disease without esophagitis; E05.90 Thyrotoxicosis, unspecified without thyrotoxic crisis or storm; Z98.51 Tubal ligation status; Z90.49 Acquired absence of other specified parts of digestive tract; Z98.84 Bariatric surgery status; R92.0 Mammographic microcalcification found on diagnostic imaging of breast
CPT/HCPCS: 19301; 00404; 19281; 76098; 88305; A4648; J2405; Q9968